=== PATIENT | male | born 1955 | race Caucasian/White ===

== ENCOUNTER → 2021-09-12 12:22 | Outpatient (BNVA) | payer OTHER, SELFPAY | PROVIDERS: PCP Nurse Practitioner Family; Visit Provider Nurse Practitioner Family | DX: F11.20 Opioid dependence, uncomplicated (principal); M96.1 Postlaminectomy syndrome, not elsewhere classified; M51.16 Intervertebral disc disorders with radiculopathy, lumbar region; M54.2 Cervicalgia; M17.12 Unilateral primary osteoarthritis, left knee; M54.9 Dorsalgia, unspecified; R13.10 Dysphagia, unspecified; G89.29 Other chronic pain; K22.0 Achalasia of cardia | CPT/HCPCS: 99202 ==

== ENCOUNTER → 2021-10-03 13:01 | Outpatient (BNVA) | payer OTHER, SELFPAY | PROVIDERS: PCP Nurse Practitioner Family; Visit Provider Nurse Practitioner Family | DX: M17.12 Unilateral primary osteoarthritis, left knee (principal); M51.16 Intervertebral disc disorders with radiculopathy, lumbar region; M54.2 Cervicalgia; M96.1 Postlaminectomy syndrome, not elsewhere classified; R13.10 Dysphagia, unspecified; K22.0 Achalasia of cardia; G47.00 Insomnia, unspecified; G89.29 Other chronic pain | CPT/HCPCS: Q3014 ==

== ENCOUNTER 2023-02-17 08:45 | Outpatient (AMB) | payer OTHER, SELFPAY ==
--- NOTE | 2023-02-17 08:57 | MHC.OFFVIS ---
Intake Intake Visit Reasons: [employer]- Knee pain wants sx Intake Note: Bernard a 68 year old male who presents today as a new patient to re-establish care with Dr. Barros. Hx of left knee . Patient reports Fell at 50 feet neck and back surgery. Numbness in his foot. Constant pain that is worse with stair use, standing and walking. 10 mg oxycodone that provides no relief. He would like to discuss surgery vs treatment. Right hip pain. pain with standing causing him to almost fall. Constan pain making it difficult to sleep. The patient has done physical therapy for 12 weeks over the last 6 months which aggravated his symptoms. He did undergo left knee arthroscopic surgery in the past which gave him temporary relief. He has also tried Tylenol and anti-inflammatory medicines which gave him minimal relief. He has had multiple cortisone injections given into his left knee. The most recent injection gave him minimal relief. He has not had a viscosupplementation injection in the past. He would like to hold off on total knee replacement surgery for as long as possible. Allergies morphine Allergy (Severe, Verified 02/17/23 09:03) ot Medication List - Last Reconciled 02/17/23 by Corby Barros MD albuterol sulfate 90 mcg/actuation 2 puffs inhalation Q4H PRN amitriptyline 10 mg PO BEDTIME 30 days amlodipine 5 mg PO DAILY atorvastatin 20 mg PO DAILY buprenorphine-naloxone 8-2 mg 20 mg sublingual DAILY clonazepam 1 mg PO TID gabapentin 600 mg PO BID hydrocortisone 2.5% [place] BID ketoconazole 2% 1 appl topical DAILY lidocaine 5% 1 patch topical DAILY PRN 30 days lisinopril 20 mg PO DAILY lisinopril 40 mg PO DAILY lisinopril 10 mg PO DAILY meloxicam 15 mg PO DAILY PRN naloxone 4 mg/actuation 1 spray intranasal DAILY oxycodone 5 - 10 mg PO Q6H PRN oxycodone ER (OxyContin) 10 mg PO BID [facility] Medical History (Updated 02/17/23 @ 09: by Corby Barros MD) Achalasia Anxiety Bone pain Chronic back pain Chronic neck pain Dysphagia Effusion, left knee Esophageal candidiasis Fatigue Hand pain Hemorrhoid Hypertension Knee pain Low serum cortisol level Lumbar disc herniation with radiculopathy Lung mass Multiple lung nodules Opioid use disorder, severe, in sustained remission Polyarthritis Tobacco use disorder Surgical History (Updated 02/17/23 @ 09:06 by HENRY Delgado) H/O esophagogastroduodenoscopy H/O neck surgery History of back surgery Hx of knee surgery Social History (Updated 02/17/23 @ 09:07 by HENRY Delgado) Alcohol intake: former Year quit: 2014 Patient Tobacco Use Status: Current everyday Tobacco user Current occupational status: disabled Physical Exam Const Other: Well-nourished well-developed very friendly male awake alert and oriented x3 in no acute distress Extrem Other: Bilateral lower extremity examination shows good capillary refill, no skin lesions noted, normal sensation light touch Right hip examination shows decreased range of motion when compared to his left hip, pain with range of motion, no tenderness over his bursa Left knee examination shows a minimal effusion, palpable crepitus with range of motion, pain with range of motion, range of motion from -3 degrees to 115 degrees, negative Vandana's test Results Reviewed Results Reviewed: X-rays of the patient's left knee taken today show moderate diffuse joint space narrowing most significant in the patellofemoral joint, no acute bony abnormalities Assessment & Plan Assessment & Plan (1) Right hip pain: Code(s): M25.551 - Pain in right hip (2) Primary osteoarthritis of left knee: Code(s): M17.12 - Unilateral primary osteoarthritis, left knee Plan Mr. 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 I had a lengthy discussion with the patient regarding the treatment options. He wishes to hold off on left total knee replacement surgery for as long as possible. I agree with this plan. He has not gotten good relief from cortisone injections in the recent past. Thus, I will see whether not his insurance company will cover a viscosupplementation injection. I will see him back once the injection is available. At this point his right hip pain is tolerable to him. We will hold off on getting an MRI for now. The patient will follow-up as instructed. Feel free to call me at any time should questions regarding his orthopedic management arise. Thank you very much for asking me to see this very friendly gentleman. I spent 22 minutes in reviewing the patient's records and imaging studies, seeing the patient and documenting in the medical record. Orders: Orders XR hip RT min 2V Today M25.551 - Pain in right hip XR pelvis 1-2V Today M25.551 - Pain in right hip Coding Level of Care Code Est Pt Level 2 (69798) Diagnoses Right hip pain M25.551 Primary osteoarthritis of left knee M17.12
== END 2023-02-17 10:50 | disposition home or self-care (01) ==
PROVIDERS: PCP Nurse Practitioner Family; Visit Provider Orthopaedic Surgery
DX: M25.551 Pain in right hip (principal); M17.12 Unilateral primary osteoarthritis, left knee
CPT/HCPCS: 99212

== ENCOUNTER 2023-02-17 09:22 | Outpatient (REF) | payer OTHER, SELFPAY ==
--- NOTE | ~2023-02-17 | XR_ITS ---
EXAMINATION: XR KNEE, LEFT CLINICAL INFORMATION: Pain COMPARISON: None available. TECHNIQUE: 3 views of the left knee. FINDINGS: There is mild narrowing of medial compartment of left knee joint. Patellofemoral compartment is intact. There is trace of joint effusion. XR/XR knee LT 3V IMPRESSION: Trace of joint effusion in the left knee joint and mild narrowing of medial compartment.
--- NOTE | ~2023-02-17 | XR_ITS ---
EXAMINATION: XR HIP, RIGHT CLINICAL INFORMATION: Pain in right hip2 COMPARISON: None available. TECHNIQUE: Two views of the right hip. FINDINGS: No fracture. Alignment is anatomic. Hip joint space is maintained. Soft tissues are unremarkable. XR/XR hip RT min 2V IMPRESSION: Normal right hip.
== END 2023-02-17 09:23 | disposition home or self-care (01) ==
LOC: HO.HOSX 09:22
PROVIDERS: Visit Provider Orthopaedic Surgery
DX: M17.12 Unilateral primary osteoarthritis, left knee (principal); M25.551 Pain in right hip
CPT/HCPCS: 73502; 73562; 99212

== ENCOUNTER 2023-03-03 08:22 | Outpatient (AMB) | payer OTHER, SELFPAY ==
--- NOTE | 2023-03-03 08:25 | A.OFFVIS_ITS ---
Intake Intake Visit Reasons: OV-Judd, Lt Knee Intake Note: Bernard is a 68 year old male who presents today with complaints of progressively worsening left knee pain. He describes his pain as sharp in nature. His pain has gotten worse over the last few years in spite of continued non operative treatments. He has had cortisone injections in the past which gave him minimal relief. He has not had a viscosupplementation injection. He has tried Tylenol and anti-inflammatory medicines which gave him minimal relief. He would like to hold off on surgery for as long as possible. He has done physical therapy for 12 weeks over the last 6 months which aggravated his pain. Allergies morphine Allergy (Severe, Verified 03/03/23 08:50) ot Medication List - Last Reconciled 03/03/23 by Corby Barros MD albuterol sulfate 90 mcg/actuation 2 puffs inhalation Q4H PRN amitriptyline 10 mg PO BEDTIME 30 days amlodipine 5 mg PO DAILY atorvastatin 20 mg PO DAILY buprenorphine-naloxone 8-2 mg 20 mg sublingual DAILY clonazepam 1 mg PO TID gabapentin 600 mg PO BID hydrocortisone 2.5% [place] BID ketoconazole 2% 1 appl topical DAILY lidocaine 5% 1 patch topical DAILY PRN 30 days lisinopril 20 mg PO DAILY lisinopril 40 mg PO DAILY lisinopril 10 mg PO DAILY meloxicam 15 mg PO DAILY PRN naloxone 4 mg/actuation 1 spray intranasal DAILY oxycodone 5 - 10 mg PO Q6H PRN oxycodone ER (OxyContin) 10 mg PO BID [facility] Medical History Achalasia Anxiety Bone pain Chronic back pain Chronic neck pain Dysphagia Effusion, left knee Esophageal candidiasis Fatigue Hand pain Hemorrhoid Hypertension Knee pain Low serum cortisol level Lumbar disc herniation with radiculopathy Lung mass Multiple lung nodules Opioid use disorder, severe, in sustained remission Polyarthritis Tobacco use disorder Surgical History H/O esophagogastroduodenoscopy H/O neck surgery History of back surgery Hx of knee surgery Social History Alcohol intake: former Year quit: 2015 Patient Tobacco Use Status: Current everyday Tobacco user Current occupational status: disabled Physical Exam Const Other: Well-nourished well-developed very friendly male awake alert and oriented x3 in no acute distress Extrem Other: Bilateral lower extremity examination shows good capillary refill, no skin lesions noted, normal sensation light touch Left knee examination shows a minimal effusion, palpable crepitus with range of motion, pain with range of motion, range of motion from -3 degrees to 115 degrees, no instability Office Procedures Joint Injection/Drain Joint Injection/Drain Primary Site: left knee Injected: 60 mg of (Durolane ) and 1% plain lidocaine Procedure: The patient tolerated the procedure well Coding - Large joint Procedure code (CPT) selection complete Results Reviewed Results Reviewed: 03/03/23 08:23 Hyaluronate Sodium, Stabilized [Durolane] 60 mg INTRAARTIC .STK-MED ONE Lidocaine HCl 2 % MPF [Xylocaine 2 % MPF] 5 ml .ROUTE .STK-MED ONE Assessment & Plan Assessment & Plan (1) Arthritis of left knee: Code(s): M17.12 - Unilateral primary osteoarthritis, left knee Plan: Mr. Franco presents with progressively worsening left knee pain due to degenerative joint disease. I had a lengthy discussion with the patient regarding the treatment options. He wishes to hold off on surgery for as long as possible. I agree with this plan. He has not gotten good relief from cortisone injections in the past. Thus, we discussed the risks and benefits of a viscosupplementation injection. The patient wished to proceed. He tolerated the injection well. He will continue with his home exercise program. He will follow up with me on an as-needed basis should his symptoms not plateau at an unacceptable level over the next few months. Feel free to call me at any time should questions regarding his orthopedic management arise. I spent 22 minutes in reviewing the patient's records and imaging studies, seeing the patient and documenting in the medical record. Orders: Orders AMB Joint Injection/Aspiration Today M17.12 - Unilateral primary osteoarthritis, left knee Coding Level of Care Code Est Pt Level 2 (36938) Diagnoses Arthritis of left knee M17.12 CPT Codes Coding - Large joint: 96831 - Large joint ([id number])
== END 2023-03-03 09:13 | disposition home or self-care (01) ==
PROVIDERS: PCP Nurse Practitioner Family; Visit Provider Orthopaedic Surgery
DX: M17.12 Unilateral primary osteoarthritis, left knee (principal)
CPT/HCPCS: 20610; 99213

== ENCOUNTER → 2023-03-03 08:22 | Outpatient (BNVA) | payer OTHER, SELFPAY | PROVIDERS: PCP Nurse Practitioner Family; Visit Provider Orthopaedic Surgery | DX: M17.12 Unilateral primary osteoarthritis, left knee (principal) | CPT/HCPCS: 20610; J7318 ==

== ENCOUNTER 2023-05-19 09:12 | Outpatient (AMB) | payer OTHER, SELFPAY ==
--- NOTE | 2023-05-19 09:33 | MHC.OFFVIS ---
Intake Vital Signs 05/19/23 09:36 Height 5 ft 7 in Weight 123 lb BMI 19.3 Intake Visit Reasons: Newprob-Right knee pain Intake Note: Bernard a 68 year old male presents today for an evaluation of right knee pain and right hip pain. Patient reports about a month ago he heard a pop in his right knee, he has been having pain and swelling ever since. States with waking up in the morning he is not able to get up and walk due to his pain. Finds no relief with Tylenol. Patient describes his hip pain as achy in nature. Most of the pain is along the lateral aspect of his right hip. He has undergone multiple low back surgeries in the past. He reports only mild discomfort in his low back at this time. Allergies morphine Allergy (Severe, Verified 05/19/23 09:34) ot Medication List - Last Reconciled 05/19/23 by Corby Barros MD albuterol sulfate 90 mcg/actuation 2 puffs inhalation Q4H PRN amitriptyline 10 mg PO BEDTIME 30 days amlodipine 5 mg PO DAILY atorvastatin 20 mg PO DAILY buprenorphine-naloxone 8-2 mg 20 mg sublingual DAILY clonazepam 1 mg PO TID gabapentin 600 mg PO BID hydrocortisone 2.5% [place] BID ketoconazole 2% 1 appl topical DAILY lidocaine 5% 1 patch topical DAILY PRN 30 days lisinopril 20 mg PO DAILY lisinopril 40 mg PO DAILY lisinopril 10 mg PO DAILY meloxicam 15 mg PO DAILY PRN naloxone 4 mg/actuation 1 spray intranasal DAILY PFSH Medical History Achalasia Anxiety Bone pain Chronic back pain Chronic neck pain Dysphagia Effusion, left knee Esophageal candidiasis Fatigue Hand pain Hemorrhoid Hypertension Knee pain Low serum cortisol level Lumbar disc herniation with radiculopathy Lung mass Multiple lung nodules Opioid use disorder, severe, in sustained remission Polyarthritis Tobacco use disorder Surgical History Hx of knee surgery History of back surgery H/O esophagogastroduodenoscopy H/O neck surgery Social History Alcohol intake: former Year quit: 2014 Patient Tobacco Use Status: Current everyday Tobacco user Current occupational status: disabled Physical Exam Vital Signs: BMI result Body Mass Index 19.3 Const Other: Well-nourished well-developed very friendly male awake alert and oriented x3 in no acute distress Extrem Other: Bilateral lower extremity examination shows good capillary refill, no skin lesions noted, normal sensation light touch Right hip examination shows full range of motion when compared to his left hip, mild tenderness over his bursa, no overlying skin lesions Right knee examination shows a minimal effusion, mild crepitus with range of motion, no focal joint line tenderness, negative Vandana's test Office Procedures Joint Injection/Drain Joint Injection/Drain Primary Site: right knee Prep: site was prepped using aseptic technique Injected: 40 mg of, Kenalog and 1% plain lidocaine Procedure: The patient tolerated the procedure well Coding 52740 - Large joint Procedure code (CPT) selection complete Results Reviewed Results Reviewed: 05/19/23 09:48 Lidocaine HCl 2 % MPF [Xylocaine 2 % MPF] 5 ml .ROUTE .STK-MED ONE Triamcinolone Acetonide [Kenalog-40] 40 mg .ROUTE .STK-MED ONE X-rays of the patient's right hip taken today show mild diffuse joint space narrowing, no acute bony abnormalities Standing full weight-bearing x-rays of the patient's right knee show mild grade 1 diffuse joint space narrowing, no acute bony abnormalities Assessment & Plan Assessment & Plan (1) Right hip pain: Code(s): M25.551 - Pain in right hip Plan: Mr. Franco presents with right hip pain due to greater trochanteric bursitis as well as right knee pain due to early degenerative joint disease as well as possible meniscus tearing. I had a lengthy discussion with the patient regarding the treatment options. The risks and benefits of a right knee cortisone injection were discussed at length with the patient. The patient wished to proceed. He tolerated the injection well. He will continue with his home exercise program. At this point his right hip pain is tolerable to him. He will follow up with me on an as-needed basis should his symptoms not plateau at an unacceptable level over the next few months. Feel free to call me at any time should questions regarding his orthopedic management arise. I spent 22 minutes in reviewing the patient's records and imaging studies, seeing the patient and documenting in the medical record. (2) Right knee pain: Code(s): M25.561 - Pain in right knee Orders: Orders AMB Joint Injection/Aspiration Today M25.561 - Pain in right knee XR knee RT 3V Today M25.561 - Pain in right knee Coding Level of Care Code Est Pt Level 2 (49587) Diagnoses Right hip pain M25.551 Right knee pain M25.561 CPT Codes Coding - 62232 Large joint: 15243 - Large joint ([id number])
[2023-05-19 09:36] VITALS: BMI 19.3
== END 2023-05-19 10:01 | disposition home or self-care (01) ==
PROVIDERS: PCP Nurse Practitioner Family; Visit Provider Orthopaedic Surgery
DX: M70.61 Trochanteric bursitis, right hip (principal); M25.561 Pain in right knee
CPT/HCPCS: 20610; 99213

== ENCOUNTER 2023-05-19 10:46 | Outpatient (REF) | payer OTHER, SELFPAY ==
--- NOTE | ~2023-05-19 | XR_ITS ---
EXAMINATION: XR KNEE, RIGHT XR PELVIS CLINICAL INFORMATION: Pain in right knee. Pain in right hip. COMPARISON: Right hip 02/17/2023, right knee MR 09/05/2021. TECHNIQUE: AP view of the pelvis and 3 views of the right knee FINDINGS: RIGHT KNEE: Soft tissue calcifications are likely vascular. No significant joint effusion. Mild medial joint space narrowing. Tiny posterior patellar osteophytes. AP PELVIS: Redemonstration of surgical hardware and clips in the partially imaged lower lumbar spine. Bones are diffusely demineralized. Mild degenerative changes in bilateral hips with joint space narrowing and hypertrophic change. Dense curvilinear calcification in the soft tissues overlying the left greater trochanter. XR/XR knee RT 3V IMPRESSION: 1. Minimal degenerative changes in the right knee. 2. Mild degenerative changes on AP views of bilateral hips. Additional imaging with CT scan or MRI should be considered for better visualization as these modalities are much more sensitive for detection of fracture or other underlying pathology.
--- NOTE | ~2023-05-19 | XR_ITS ---
EXAMINATION: XR KNEE, RIGHT XR PELVIS CLINICAL INFORMATION: Pain in right knee. Pain in right hip. COMPARISON: Right hip 02/17/2023, right knee MR 09/05/2021. TECHNIQUE: AP view of the pelvis and 3 views of the right knee FINDINGS: RIGHT KNEE: Soft tissue calcifications are likely vascular. No significant joint effusion. Mild medial joint space narrowing. Tiny posterior patellar osteophytes. AP PELVIS: Redemonstration of surgical hardware and clips in the partially imaged lower lumbar spine. Bones are diffusely demineralized. Mild degenerative changes in bilateral hips with joint space narrowing and hypertrophic change. Dense curvilinear calcification in the soft tissues overlying the left greater trochanter. XR/XR pelvis 1-2V IMPRESSION: 1. Minimal degenerative changes in the right knee. 2. Mild degenerative changes on AP views of bilateral hips. Additional imaging with CT scan or MRI should be considered for better visualization as these modalities are much more sensitive for detection of fracture or other underlying pathology.
== END 2023-05-19 10:47 | disposition home or self-care (01) ==
LOC: HO.HOSX 10:46
PROVIDERS: Visit Provider Orthopaedic Surgery
DX: M17.11 Unilateral primary osteoarthritis, right knee (principal); M70.61 Trochanteric bursitis, right hip
CPT/HCPCS: 20610; 72170; 73562; 99212; J3301

== ENCOUNTER 2023-08-19 08:46 | Outpatient (AMB) | payer OTHER, SELFPAY ==
--- NOTE | 2023-08-19 08:55 | MHC.OFFVIS ---
Intake Vital Signs 08/19/23 09:00 Height 5 ft 7 in Weight 123 lb BMI 19.3 Handedness Left Intake Visit Reasons: Left knee pain Intake Note: Bernard is a 68 year old male who presents for a follow up Left knee pain. Patient reports last injection was on 05/19/2023 in the Right knee and states that the injection gave him mild relief, he would like to have an injection in his left knee. He is having concerns of his right shoulder pain that has been going on for about 5 months. No hx of Trauma. He describes his left knee pain as sharp in nature. Most of the pain is along the medial aspect of his knee. He has tried Tylenol and anti-inflammatory medicines which gave him minimal relief. He has also done physical therapy which aggravated his pain. Allergies morphine Allergy (Severe, Verified 08/19/23 09:00) ot Medication List - Last Reconciled 08/19/23 by Corby Barros MD albuterol sulfate 90 mcg/actuation 2 puffs inhalation Q4H PRN amitriptyline 10 mg PO BEDTIME 30 days amlodipine 5 mg PO DAILY atorvastatin 20 mg PO DAILY buprenorphine-naloxone 8-2 mg 20 mg sublingual DAILY clonazepam 1 mg PO TID gabapentin 600 mg PO BID hydrocortisone 2.5% [place] BID ketoconazole 2% 1 appl topical DAILY lidocaine 5% 1 patch topical DAILY PRN 30 days lisinopril 20 mg PO DAILY lisinopril 40 mg PO DAILY lisinopril 10 mg PO DAILY meloxicam 15 mg PO DAILY PRN naloxone 4 mg/actuation 1 spray intranasal DAILY [facility] Medical History Achalasia Anxiety Bone pain Chronic back pain Chronic neck pain Dysphagia Effusion, left knee Esophageal candidiasis Fatigue Hand pain Hemorrhoid Hypertension Knee pain Low serum cortisol level Lumbar disc herniation with radiculopathy Lung mass Multiple lung nodules Opioid use disorder, severe, in sustained remission Polyarthritis Tobacco use disorder Surgical History Hx of knee surgery History of back surgery H/O esophagogastroduodenoscopy H/O neck surgery Social History Alcohol intake: former Year quit: 2014 Patient Tobacco Use Status: Current everyday Tobacco user Current occupational status: disabled Physical Exam Vital Signs: BMI result Body Mass Index 19.3 Const Other: Well-nourished well-developed very friendly male awake alert and oriented x3 in no acute distress Extrem Other: Bilateral lower extremity examination shows good capillary refill, no skin lesions noted, normal sensation light touch Left knee examination shows a minimal effusion, palpable crepitus with range of motion, pain with range of motion, no instability Office Procedures Joint Injection/Drain Joint Injection/Drain Primary Site: left knee Prep: site was prepped using aseptic technique Injected: 40 mg of, DepoMedrol and 1% plain lidocaine Procedure: The patient tolerated the procedure well Coding - Large joint Procedure code (CPT) selection complete Assessment & Plan Assessment & Plan (1) Arthritis of left knee: Code(s): M17.12 - Unilateral primary osteoarthritis, left knee (2) Left knee pain: Code(s): M25.562 - Pain in left knee Plan Mr. Franco presents with left knee pain due to degenerative joint disease. I had a lengthy discussion with the patient regarding the treatment options. Wishes to hold off on surgery for as long possible. I agree with this plan. The risks and benefits of a left knee cortisone injection were discussed at length with the patient. The patient wished to proceed with the injection. He tolerated the injection well. He will continue with his activity modifications. The patient also has right shoulder pain. I will see him back next week for clinical and radiographic evaluation of his right shoulder. Feel free to call me at any time should questions regarding his orthopedic management arise. I spent 22 minutes in reviewing the patient's records and imaging studies, seeing the patient and documenting in the medical record. Orders: Orders AMB Joint Injection/Aspiration Today M17.12 - Unilateral primary osteoarthritis, left knee Coding Level of Care Code Est Pt Level 2 (83274) Diagnoses Arthritis of left knee M17.12 Left knee pain M25.562 CPT Codes Coding - Large joint: 95339 - Large joint ([id number])
[2023-08-19 09:00] VITALS: BMI 19.3
== END 2023-08-19 09:29 | disposition home or self-care (01) ==
PROVIDERS: PCP Nurse Practitioner Family; Visit Provider Orthopaedic Surgery
DX: M17.12 Unilateral primary osteoarthritis, left knee (principal)
CPT/HCPCS: 20610; 99213

== ENCOUNTER → 2023-08-19 08:46 | Outpatient (BNVA) | payer OTHER, SELFPAY | PROVIDERS: PCP Nurse Practitioner Family; Visit Provider Orthopaedic Surgery | DX: M17.12 Unilateral primary osteoarthritis, left knee (principal) | CPT/HCPCS: 20610; 99212; J1020 ==

== ENCOUNTER 2023-08-26 07:21 | Outpatient (REF) | payer OTHER, SELFPAY | END 2023-08-26 07:22 | disposition home or self-care (01) | LOC: HO.HOSX 07:21 | PROVIDERS: Visit Provider Orthopaedic Surgery | DX: Z13.89 Encounter for screening for other disorder (principal) ==

== ENCOUNTER 2023-09-22 16:56 | Outpatient (REF) | payer OTHER, SELFPAY | END 2023-09-22 16:57 | disposition home or self-care (01) | LOC: HO.HOSX 16:56 | PROVIDERS: Visit Provider Orthopaedic Surgery | DX: Z13.89 Encounter for screening for other disorder (principal) ==

== ENCOUNTER 2024-01-20 06:48 | Outpatient (REF) | payer OTHER, SELFPAY ==
--- NOTE | ~2024-01-20 | XR_ITS ---
EXAMINATION: XR SHOULDER, RIGHT CLINICAL INFORMATION: Pain right shoulder. COMPARISON: None available. TECHNIQUE: Two views of the right shoulder. FINDINGS: Diffuse demineralization. Cervical fixation hardware partially imaged. Degenerative changes with rightward curvature of the partially imaged upper thoracic spine. Acromioclavicular alignment maintained. Narrowing of the subacromial space. Glenohumeral alignment appears preserved on these views. No abnormal soft tissue calcification visualized adjacent to the humeral head. Patchy asymmetries with changes in the right hilar region could be evaluated with dedicated views of the chest. Spine fixation hardware partially imaged. Diffuse demineralization. XR/XR shoulder RT min 2V IMPRESSION: 1. Narrowing of the subacromial space. 2. Patchy asymmetries with changes in the right hilar region could be evaluated with dedicated views of the chest.
== END 2024-01-20 06:49 | disposition home or self-care (01) ==
LOC: HO.HOSX 06:48
PROVIDERS: Visit Provider Orthopaedic Surgery
DX: M25.511 Pain in right shoulder (principal)
CPT/HCPCS: 73030; 99212

== ENCOUNTER 2024-01-20 07:34 | Outpatient (AMB) | payer OTHER, SELFPAY ==
--- NOTE | 2024-01-20 07:49 | A.OFFVIS_ITS ---
Vital Signs 01/20/24 07:55 Height 5 ft 7 in Weight 123 lb BMI 19.3 Intake Visit Reasons: New Prob - right shoulder pain Intake Note: Bernard is a 69 year old left hand dominant male who presents with complaints of progressively worsening right shoulder pain and weakness. The patient states that his symptoms have gotten worse over the last few years in spite of continued non operative treatments. The patient states that he has done a home exercise program which aggravated his pain. He has had injections in the past which gave him minimal relief. He has also tried Tylenol, anti-inflammatory medicines and oxycodone which gave him only mild relief. Allergies morphine Allergy (Severe, Verified 01/20/24 07:54) ot Medication List - Last Reconciled 01/20/24 by Corby Barros MD albuterol sulfate 90 mcg/actuation 2 puffs inhalation Q4H PRN amitriptyline 10 mg PO BEDTIME 30 days amlodipine 5 mg PO DAILY atorvastatin 20 mg PO DAILY buprenorphine-naloxone 8-2 mg 20 mg sublingual DAILY clonazepam 1 mg PO TID gabapentin 600 mg PO BID hydrocortisone 2.5% FL BID ketoconazole 2% 1 appl topical DAILY lidocaine 5% 1 patch topical DAILY PRN 30 days lisinopril 20 mg PO DAILY lisinopril 40 mg PO DAILY lisinopril 10 mg PO DAILY meloxicam 15 mg PO DAILY PRN naloxone 4 mg/actuation 1 spray intranasal DAILY PFSH Medical History Achalasia Anxiety Bone pain Chronic back pain Chronic neck pain Dysphagia Effusion, left knee Esophageal candidiasis Fatigue Hand pain Hemorrhoid Hypertension Knee pain Low serum cortisol level Lumbar disc herniation with radiculopathy Lung mass Multiple lung nodules Opioid use disorder, severe, in sustained remission Polyarthritis Tobacco use disorder Surgical History Hx of knee surgery History of back surgery H/O esophagogastroduodenoscopy H/O neck surgery Social History Alcohol intake: former Year quit: 2014 Patient Tobacco Use Status: Current everyday Tobacco user Current occupational status: disabled Physical Exam Vital Signs: BMI result Body Mass Index 19.3 Const Other: Well-nourished well-developed very friendly male awake alert and oriented x3 in no acute distress Extrem Other: Bilateral upper extremity examination shows good capillary refill, no skin lesions noted, normal sensation light touch Right shoulder examination shows decreased range of motion when compared to his left shoulder, 3/5 strength with supraspinatus testing, positive impingement signs, no instability Results Reviewed Results Reviewed: X-rays of the patient's right shoulder show severe acromioclavicular joint narrowing as well as a high-riding humeral head consistent with possible rotator cuff tear Assessment & Plan Assessment & Plan (1) Right shoulder pain: Code(s): M25.511 - Pain in right shoulder Category: Medical Plan Mr. Franco presents with progressively worsening right shoulder pain and weakness due to impingement syndrome and most likely a full-thickness rotator cuff tear. Thus, I will send the patient for an MRI of his right shoulder for further evaluation. I will see him back once the MRI is completed to discuss the findings and treatment options. Feel free to call me at any time should questions regarding his orthopedic management arise. I spent 20 minutes in reviewing the patient's records and imaging studies, steven g the patient and documenting in the medical record. Orders: Orders XR shoulder RT min 2V Today M25.511 - Pain in right shoulder MR shoulder RT wo con Today M25.511 - Pain in right shoulder Coding Level of Care Code Est Pt Level 3 (25347) Diagnoses Right shoulder pain M25.511
[2024-01-20 07:55] VITALS: BMI 19.3
== END 2024-01-20 08:17 | disposition home or self-care (01) ==
PROVIDERS: PCP Nurse Practitioner Family; Visit Provider Orthopaedic Surgery
DX: M25.511 Pain in right shoulder (principal)
CPT/HCPCS: 99213

== ENCOUNTER 2024-02-25 14:10 | Outpatient (AMB) | payer OTHER, SELFPAY ==
--- NOTE | 2024-02-25 14:20 | MHC.OFFVIS ---
Intake Visit Reasons: OV- R shoulder MRI review Intake Note: Bernard is a 69 year old left hand dominant male who presents with complaints of progressively worsening right shoulder pain and weakness. The patient states that his symptoms have gotten worse over the last few years in spite of continued non operative treatments. The patient states that he has done a home exercise program which aggravated his pain. He has had injections in the past which gave him minimal relief. He has also tried Tylenol, anti-inflammatory medicines and oxycodone which gave him only mild relief. The patient reports weakness when lifting his right hand above shoulder height. Allergies morphine Allergy (Severe, Verified 02/25/24 14:20) oth PFSH Medical History Lung mass Knee pain Hand pain Esophageal candidiasis Fatigue Effusion, left knee Dysphagia Bone pain Polyarthritis Tobacco use disorder Opioid use disorder, severe, in sustained remission Multiple lung nodules Lumbar disc herniation with radiculopathy Low serum cortisol level Hypertension Hemorrhoid Chronic neck pain Chronic back pain Anxiety Achalasia Surgical History Hx of knee surgery History of back surgery H/O esophagogastroduodenoscopy H/O neck surgery Social History Alcohol intake: former Year quit: 2014 Patient Tobacco Use Status: Current everyday Tobacco user Current occupational status: disabled Physical Exam Const Other: Well-nourished well-developed very friendly male awake alert and oriented x3 in no acute distress Extrem Other: Bilateral upper extremity examination shows good capillary refill, no skin lesions noted, normal sensation light touch Right shoulder examination shows slightly decreased range of motion when compared to his left shoulder, 4/5 strength with supraspinatus testing, positive impingement signs, tenderness over his acromioclavicular joint, no instability Results Reviewed Results Reviewed: MRI of the patient's right shoulder shows severe acromioclavicular joint narrowing, a type 2 acromion, a full-thickness tear of the supraspinatus tendon Assessment & Plan Assessment & Plan (1) Impingement of right shoulder: Code(s): M25.811 - Other specified joint disorders, right shoulder Category: Medical Plan Mr. Franco presents with progressively worsening right shoulder pain and weakness due to impingement syndrome, acromioclavicular joint arthritis and a full-thickness rotator cuff tear. I had a lengthy discussion with the patient regarding the treatment options. At this point he has failed continued non operative treatments. The risks and benefits of right shoulder surgery were discussed at length with the patient. The patient wishes to proceed with surgery. Surgery will likely involve right shoulder diagnostic arthroscopy with distal clavicle excision, acromioplasty and rotator cuff repair. The patient will be scheduled for next available date. He will follow-up as instructed. Feel free to call me at any time should questions regarding his orthopedic management arise. I spent 21 minutes in reviewing the patient's records and imaging studies, seeing the patient and documenting in the medical record. Coding Level of Care Code Est Pt Level 3 (01073) Diagnoses Impingement of right shoulder M25.811
== END 2024-02-25 14:59 | disposition home or self-care (01) ==
PROVIDERS: PCP Nurse Practitioner Family; Visit Provider Orthopaedic Surgery
DX: M75.41 Impingement syndrome of right shoulder (principal); M19.011 Primary osteoarthritis, right shoulder; M75.101 Unspecified rotator cuff tear or rupture of right shoulder, not specified as traumatic
CPT/HCPCS: 99213

== ENCOUNTER → 2024-02-25 14:10 | Outpatient (BNVA) | payer OTHER, SELFPAY | PROVIDERS: PCP Nurse Practitioner Family; Visit Provider Orthopaedic Surgery | DX: M25.811 Other specified joint disorders, right shoulder (principal) | CPT/HCPCS: 99212 ==

== ENCOUNTER → 2024-02-29 10:36 | Outpatient (BNV) | payer OTHER, SELFPAY | PROVIDERS: PCP Nurse Practitioner Adult Health; Visit Provider Internal Medicine | DX: R94.31 Abnormal electrocardiogram [ECG] [EKG] (principal) | CPT/HCPCS: 93010 ==

== ENCOUNTER 2024-03-07 06:05 | Day surgery (SDC) | payer OTHER, SELFPAY ==
--- NOTE | 2024-02-29 | ECG_ITS ---
Test Reason : COPD, PREOP Blood Pressure : / mmHG Vent. Rate : 059 BPM Atrial Rate : 059 BPM P-R Int : 142 ms QRS Dur : 088 ms QT Int : 410 ms P-R-T Axes : 072 073 060 degrees QTc Int : 405 ms Sinus bradycardia Possible Anterior infarct , age undetermined Abnormal ECG No previous ECGs available Referred By: Noemy Nicole Electronically Signed By:BUCK ROCKWELL
[2024-02-29 09:45] VITALS: BP 147/79; PULSE 67; RESP 16; O2SAT 98; BMI 19.3
[2024-02-29 11:10] LABS: Hematocrit 40.8 % (42.0-52.0); Hemoglobin 14.2 g/dl (14.0-18.0); Mean Corpuscular HGB Conc 34.8 g/dl (31.0-36.0); Mean Corpuscular Hemoglobin 33.4 pg (27.0-33.0); Platelet Count 241 X10*3/uL (160-400); Red Blood Count 4.25 X10*6/uL (4.60-5.80); Red Cell Distribution Width 12.3 % (11.0-16.0); White Blood Count 5.9 X10*3/uL (4.8-10.8)
[2024-02-29 11:51] LABS: Anion Gap 11 (12-20); Blood Urea Nitrogen 16 mg/dL (9-16); Calcium 9.5 mg/dL (8.4-10.2); Carbon Dioxide 28 mmol/L (22-29); Chloride 109 mmol/L (96-108); Creatinine Clr Calc Pharmacy 72.5; Estimated Glomerular Filt Rate > 60; Glucose Random 68 mg/dL (60-115); Potassium 4.2 mmol/L (3.3-5.1); Sodium 144 mmol/L (135-145)
[2024-03-07] VITALS (7 sets, daily range): BP systolic 105–146; BP diastolic 54–79; PULSE 46–79; RESP 16–18; TEMP 36.4–36.6; O2SAT 96–99; BMI 18.8
[2024-03-07] MEDS: Lactated Ringers 1,000 ML 100 ML IVCONT (06:32)
[2024-03-07] MEDS: Albuterol Sulfate (0.083%) 2.5 MG/3 ML VIAL.NEB INHALE (06:51)
--- NOTE | 2024-03-07 07:15 | P.CONAN_ITS ---
Documented by User: Noemy Nicole NP 03/02/24 12:49 HPI - Anesthesia Eval Consult details Narrative: 69yo Right Shoulder Arthroscopy,distal clavicle excision,acromioplasty,with rotator cuff repair, 03/07/24 No recent illness No CP/SOB with walking daily 30-60 Recent quit smoking. Denies productive cough Albuterol ~ 2 x weekly Chronic opiates (overall pain after fall 50ft 1984) Oxycontin 20 mg BID, Oxy IR 10mg QID Lung CA s/p?robotic assisted right lower lobe wedge resection and mediastinal lymphadenectomy on 06/03/2023 [facility] Active Problems Active Problems: All Active Problems Impingement of right shoulder (Acute) Right shoulder pain (Acute) Arthritis of left knee (Acute) Right hip pain (Acute) Right knee pain (Acute) Insomnia (Acute) Primary osteoarthritis of left knee (Acute) Failed back syndrome (Acute) Lumbar disc herniation with radiculopathy (Acute) Dysphagia (Acute) Chronic neck pain (Acute) Chronic back pain (Acute) Achalasia (Acute) Past Medical History Medical History (Updated 02/29/24 @ 10:02 by Raegan Katz RN) Degenerative arthritis Hx of cancer of lung Hx: bad fall (~1984) COPD (chronic obstructive pulmonary disease) Chronic, continuous use of opioids Lung mass Knee pain Hand pain Esophageal candidiasis Fatigue Effusion, left knee Dysphagia Bone pain Polyarthritis Tobacco use disorder Opioid use disorder, severe, in sustained remission Multiple lung nodules Lumbar disc herniation with radiculopathy Low serum cortisol level Hypertension Hemorrhoid Chronic neck pain Chronic back pain Anxiety Achalasia Family History Family history of problems with anesthesia: No Surgical History Surgical History (Updated 02/29/24 @ 10:22 by Raegan Katz RN) History of lung surgery (06/03/23) Hx of knee surgery History of back surgery H/O esophagogastroduodenoscopy H/O neck surgery History of Problems with Anesthesia: No Social History Social History Are you a primary rn managed care to a significant other at home: Yes ( 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 If so, by whom?: No Are you DNR?: No Advance Directives: No Advance Directives Information Provided: Yes Advance Directives on File: No Recently lost weight without trying: Yes How much weight loss: 24-33 pounds Eating poorly because of decreased appetite: No Nutrition screen score: 5 Poor oral hygiene: No (no teeth) Current occupational status: disabled Meds Allergies Allergy/AdvReac Type Severity Reaction Status Date / Time morphine Allergy Severe Hallucinati Verified 03/07/24 06:14 ons Home Medications ?Medication ?Instructions ?Recorded ?Confirmed ?Last Taken ?Type albuterol sulfate 90 mcg/actuation 2 puff inhalation Q4H PRN wheezing 09/12/21 02/26/24 Unknown History aerosol inhaler clonazepam 1 mg tablet 1 mg PO TID PRN Anxiety 09/12/21 02/26/24 Unknown History naloxone 4 mg/actuation nasal spray 1 spray intranasal DAILY 09/12/21 02/26/24 Unknown History amlodipine 5 mg tablet 5 mg PO DAILY 02/17/23 02/26/24 Unknown History lisinopril 10 mg tablet 10 mg PO DAILY 02/17/23 02/26/24 Unknown History cholecalciferol (vitamin D3) 1,250 50,000 unit PO QWEEK 02/26/24 02/26/24 Unknown History mcg (50,000 unit) capsule oxycodone 10 mg tablet 10 mg PO Q6H PRN pain 02/26/24 02/26/24 Unknown History oxycodone 20 mg tablet,crush 20 mg PO BID 02/26/24 02/26/24 Unknown History resistant,extended release 12 hr (OxyContin) Exam Height,Weight and Vital Signs: Height 5 ft 7 in Weight 55.792 kg Last Vital Signs Pulse 67 02/29/24 09:45 Resp 16 02/29/24 09:45 BP 147/79 H 02/29/24 09:45 Pulse Ox 98 02/29/24 09:45 O2 Del Method Room Air 02/29/24 09:45 Pertinent Lab Results Pertinent Lab Results: Lab Results 08/12/24 Range/Units 10:33 WBC 5.9 (4.8-10.8) X10*3/uL RBC 4.25 L (4.60-5.80) X10*6/uL Hgb 14.2 (14.0-18.0) g/dl Hct 40.8 L (42.0-52.0) % MCV 96.0 (80.0-98.0) fL MCH 33.4 H (27.0-33.0) pg MCHC 34.8 (31.0-36.0) g/dl RDW 12.3 (11.0-16.0) % Plt Count 241 (160-400) X10*3/uL MPV 10.0 (9.4-12.4) fL Absolute Nucleated RBC 0.000 (0.0-0.012) X10*3/uL Nucleated RBC % (auto) 0.0 (0.0-0.2) /100WBC Sodium 144 (135-145) mmol/L Potassium 4.2 (3.3-5.1) mmol/L Chloride 109 H (96-108) mmol/L Carbon Dioxide 28 (22-29) mmol/L Anion Gap 11 L (12-20) BUN 16 (9-16) mg/dL Creatinine 0.78 (0.5-1.4) mg/dL Estim Creat Clear Calc 72.5 Estimated GFR > 60 Random Glucose 68 (60-115) mg/dL Calcium 9.5 (8.4-10.2) mg/dL Narrative Narrative: EKG 02/2024 Vent. Rate : 059 BPM Atrial Rate : 059 BPM P-R Int : 142 ms QRS Dur : 088 ms QT Int : 410 ms P-R-T Axes : 072 073 060 degrees QTc Int : 405 ms Sinus bradycardia Possible Anterior infarct , age undetermined Abnormal ECG No previous ECGs available (No change from previous at outside facility 05/2023) Airway Mallampati Class: II TM Dist: >3cm Neck ROM: Full Loose/Missing/Broken Teeth: Yes (Edentulous) Heart: RRR Lungs: CTAB Assessment and Plan Assessment Anesthesia Assessment: Anesthesia Plan Discussed, Smoking Cess. Discussed and PAT Visit Final Anesthetic Review Family History of Problems with Anesthesia: No History of Problems with Anesthesia: No Documented by User: Magy Cevallos DO 03/07/24 09:13 [facility] Past Medical History Medical History (Updated 02/29/24 @ 10:02 by Raegan Katz RN) Degenerative arthritis Hx of cancer of lung Hx: bad fall (~1984) COPD (chronic obstructive pulmonary disease) Chronic, continuous use of opioids Lung mass Knee pain Hand pain Esophageal candidiasis Fatigue Effusion, left knee Dysphagia Bone pain Polyarthritis Tobacco use disorder Opioid use disorder, severe, in sustained remission Multiple lung nodules Lumbar disc herniation with radiculopathy Low serum cortisol level Hypertension Hemorrhoid Chronic neck pain Chronic back pain Anxiety Achalasia Family History Family history of problems with anesthesia: No Surgical History Surgical History (Updated 02/29/24 @ 10:22 by Raegan Katz RN) History of lung surgery (06/03/23) Hx of knee surgery History of back surgery H/O esophagogastroduodenoscopy H/O neck surgery History of Problems with Anesthesia: No Social History Social History Are you a primary rn managed care to a significant other at home: Yes ( 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 If so, by whom?: No Are you DNR?: No Advance Directives: No Advance Directives Information Provided: Yes Advance Directives on File: No Recently lost weight without trying: Yes How much weight loss: 24-33 pounds Eating poorly because of decreased appetite: No Nutrition screen score: 5 Poor oral hygiene: No (no teeth) Current occupational status: disabled Meds Allergies Allergy/AdvReac Type Severity Reaction Status Date / Time morphine Allergy Severe Hallucinati Verified 03/07/24 06:14 ons Home Medications ?Medication ?Instructions ?Recorded ?Confirmed ?Last Taken ?Type albuterol sulfate 90 mcg/actuation 2 puff inhalation Q4H PRN wheezing 09/12/21 02/26/24 Unknown History aerosol inhaler clonazepam 1 mg tablet 1 mg PO TID PRN Anxiety 09/12/21 02/26/24 Unknown History naloxone 4 mg/actuation nasal spray 1 spray intranasal DAILY 09/12/21 02/26/24 Unknown History amlodipine 5 mg tablet 5 mg PO DAILY 02/17/23 02/26/24 Unknown History lisinopril 10 mg tablet 10 mg PO DAILY 02/17/23 02/26/24 Unknown History cholecalciferol (vitamin D3) 1,250 50,000 unit PO QWEEK 02/26/24 02/26/24 Unkn own History mcg (50,000 unit) capsule oxycodone 10 mg tablet 10 mg PO Q6H PRN pain 02/26/24 02/26/24 Unknown History oxycodone 20 mg tablet,crush 20 mg PO BID 02/26/24 02/26/24 Unknown History resistant,extended release 12 hr (OxyContin) Exam Exam Date and Time: March 07, 202415 Height,Weight and Vital Signs: Height 5 ft 7 in Weight 55.792 kg Last Vital Signs Pulse 67 02/29/24 09:45 Resp 16 02/29/24 09:45 BP 147/79 H 02/29/24 09:45 Pulse Ox 98 02/29/24 09:45 O2 Del Method Room Air 02/29/24 09:45 Height 5 ft 7 in Weight 54.431 kg Vital Signs Pulse Rate 67 02/29/24 09:45 Respiratory Rate 16 02/29/24 09:45 Blood Pressure 147/79 H 02/29/24 09:45 Pulse Oximetry 98 02/29/24 09:45 Oxygen Delivery Method Room Air 02/29/24 09:45 Temperature 97.5 F 03/07/24 06:33 Pulse Rate 55 03/07/24 06:51 Respiratory Rate 18 03/07/24 06:51 Blood Pressure 137/75 03/07/24 06:33 Pulse Oximetry 98 03/07/24 06:33 Oxygen Delivery Method Room Air 03/07/24 06:33 Airway Mallampati Class: I TM Dist: >3cm Neck ROM: Full Loose/Missing/Broken Teeth: Yes (Edentulous) Heart: S1S2 Assessment and Plan Assessment Anesthesia Assessment: Anesthesia Plan Discussed and Chart Reviewed Final Anesthetic Review Family History of Problems with Anesthesia: No History of Problems with Anesthesia: No NPO: Yes ASA Class: III Final Preanesthetic Review: No Changes in Pt Med Stat, Meds/Allgs Chart Reviewed, Consent Obtained/Reviewed and Anes Risks/Benef Reviewed Patient Risk: Low Procedure Risk: Intermediate Anesthetic Plan Anesthetic Plan: GA, Regional Block (right brachial plexis block) and Agree w/ Assess. and Plan Disposition: Standard PACU
--- NOTE | 2024-03-07 09:43 | P.BOP_ITS ---
Brief Operative Note Date of Service: 03/07/24 Pre-op diagnosis: Right shoulder impingement syndrome, right shoulder acromioclavicular joint arthritis, right shoulder rotator cuff tear Post-op diagnosis: same Procedure: Right shoulder diagnostic arthroscopy with right shoulder arthroscopic distal clavicle excision, right shoulder arthroscopic acromioplasty, right shoulder mini-open rotator cuff repair Implants: One suture anchor ([employer] Twinfix anchor with #2 Ultrabraid suture) Surgeon: Corby Barros MD Anesthesia: GETA and regional Was an Coding Specialist used for this Procedure?: No Estimated blood loss (mL): 10 Pathology: none sent Condition: stable Disposition: PACU
--- NOTE | 2024-03-07 09:45 | P.OP_ITS ---
Operative Note Operative Note Date of Service: 03/07/24 Narrative: After the patient was identified as Bernard Franco and his right shoulder was initialed by myself the patient was brought to the holding area where a right shoulder interscalene regional block was performed by the anesthesiologist in routine fashion. The patient was then brought to the operating room where general anesthesia was induced by the anesthesiologist in routine fashion. The patient was given 2 g of IV Ancef preoperatively for infection prophylaxis. Examination under anesthesia of the patient's right shoulder showed full passive range of motion of the patient's right shoulder when compared to the left. The patient was gently positioned in the beach chair position with all bony prominences well padded. The patient's right shoulder region and upper extremity were prepped and draped in sterile fashion. A formal time-out was completed. A #11 scalpel blade was used to make a posterior portal 2 cm inferior and 1 cm medial to the posterolateral corner of the acromion. Blunt trocar technique was used to enter the glenohumeral joint in routine fashion. An anterior portal was made just lateral to the coracoid process after proper positioning was confirmed using a spinal needle. Diagnostic arthroscopy showed minimal degenerative changes of the glenoid and humeral head articular surfaces. There was a full-thickness tear of the supraspinatus tendon. There was no evidence of injury to the biceps tendon or its insertion onto the glenoid. There was no inflammation of the anterior joint capsule. The arthroscope was then placed from the posterior portal into the subacromial space. A lateral portal was made 2 fingerbreadths lateral to the anterior lateral corner of the acromion. The ArthroCare Wand was used to ablate soft tissues along the undersurface of the acromion as well as to excise the coracoacromial ligament. There was a sharp spur along the undersurface of the acromion which was removed using the hooded bur. The arthroscope was then placed into the lateral portal and the acromioplasty was completed with the bur in the posterior portal using the posterior aspect of the acromion as a cutting block. The ArthroCare Wand was then brought in through the anterior portal and was used to ablate soft tissues along the acromioclavicular joint and distal clavicle. The posterior and superior ligamentous structures were left intact. A distal clavicle excision of 6 mm was performed using the hooded bur. Any remaining bursal tissue was removed using the arthroscopic shaver. The subacromial space was irrigated and then drained. All arthroscopic instruments were removed. Sterile gloves were changed and the shoulder was once again prepped with Betadine. A #15 scalpel blade was used to extend the lateral portal to the lateral edge of the acromion. The subacromial tissues were dissected using electrocautery down to the superficial deltoid fascia. The trocar split in the anterior raphe of the deltoid was then extended to the lateral edge of the acromion using e lectrocautery and curved Matias scissors. Any remaining bursal tissue was removed using curved Matias scissors. Subacromial and subdeltoid adhesions were bluntly dissected. The undersurface of the acromion was palpated and it was smooth. A #2 Ethibond tag suture was placed into the supraspinatus tendon. The tendon was easily mobilized to its insertion point on the glenoid. The wound was irrigated with copious amounts of normal saline solution. One suture anchor was placed into the greater tuberosity in routine fashion. The rotator cuff repair was then performed using horizontal mattress sutures under minimal tension with the patient's elbow at their side. Following the repair the shoulder was taken through a full range of motion. The repair was stable. The wound was irrigated with copious amounts of normal saline solution. The superficial and deep deltoid fascia were closed with #1 Vicryl [id number] interrupted suture. The wound was once again irrigated. The subcutaneous tissues were closed with 2-0 Vicryl interrupted suture. The skin was closed with 3-0 Prolene subcuticular suture and Steri-Strips. The anterior and posterior portals were closed with 3-0 nylon interrupted suture. Dry sterile dressing was placed over all incisions. The patient's right upper extremity was placed into a sling. The patient was awoken and extubated in the operating room. The patient was transferred to the recovery room in stable condition.
[2024-03-07] MEDS: cefTRIAXone sodium 1 GM in 0.9 % Sodium Chloride 50 ML IV (09:47)
[2024-03-07] MEDS: oxyCODONE HCl Immed Release 5 MG TABLET PO (10:27)
--- OUTSIDE RECORDS SUMMARY | 2024-03-09 07:26 | XMS_ITS | Continuity of Care Document ---
Author Organization [facility] ter Address [address] [place] [address]- Care Team Providers Care Aerobics Instructor Name Role Phone Chaim Templeton MD Primary Care Physician [phone] Encounter [facility] Date(s): 07/04/19 - 07/04/[address] [address]- [facility] Attending Physician: Not on Staff, Attending MD Allergies, Adverse Reactions, Alerts Substance Reaction Severity Status morphine 1 combative CONFUSED OUT OF IT Active 1hallucintations, confusion Immunizations Given and Recorded Vaccine Date Status Refusal Reason influ virus vac, H1N1, inactive(oldterm) 08/14/09 Given pneumococcal 23-valent vaccine 08/14/09 Given Medications Azithromycin 5 Day Dose Pack 250 mg oral tablet See Instructions, 2 tablets daily on 1st day then 1 tablet daily for 4 days, # 6 tablet, 0 Refills,Soft Stop, 04/19/19 15:27:35 EDT, Tablet Start Date: 04/19/19 Status: Ordered clonazepam 2 mg oral tablet 2 mg, 1, tablet, By Mouth, 3 times a day, 1 mg in AM and afternoon; 2 mg at bedtime, 0 Refills Start Date: 09/09/07 Status: Ordered diclofenac 3% topical gel 1 application, Topically, 2 times a day, apply over right elbow, # 100 Gm, 0 Refills, Maintenance, 05/18/19 16:15:57 EDT, Gel, 1 application Topically 2 times a day,Instr:apply over right elbow Start Date: 05/18/19 Status: Ordered lisinopril 2.5 mg oral tablet 2.5 mg, 1, tablet, By Mouth, Daily, # 90 tablet, Refills 0, Tot. Refills 0, Maintenance, 04/21/19 12:52:19 EDT, Route to Pharmacy Electronically, [id number], [facility]/pharmacy #[id number] Start Date: 04/21/19 Status: Ordered meloxicam 7.5 mg oral tablet 1 tablet = 7.5 mg, By Mouth, Daily, # 30 tablet, 0 Refills, Maintenance, 06/07/19 20:28:13 EST, Tablet Start Date: 06/07/19 Status: Ordered predniSONE 5 mg oral tablet See Instructions, 4 tablets daily x 3 days then 3 tablets daily x 3 days then 2 tablets daily x 3 days then 1 tablet daily x 3 days then discontinue, # 30 tablet, 0 Refills, Maintenance, 04/19/19 15:28:10 EDT, Tablet Start Date: 04/19/19 Status: Ordered ProAir HFA 90 mcg/inh inhalation aerosol with adapter See Instructions, TAKE 2 PUFFS BY MOUTH EVERY 4 HOURS NEEDED FOR WHEEZE, # 18 Gm, Refills 2, Tot. Refills 2, Soft Stop, 04/19/19 15:30:17 EDT, Instructions Replace Required Details, Route to Pharmacy Electronically, [id number]... Start Date: 04/19/19 Status: Ordered Suboxone 8 mg-2 mg sublingual film Sublingual, Daily, 0 Refills, Maintenance, 04/07/19 15:18:17 EDT Start Date: 04/07/19 Status: Ordered traZODone 100 mg oral tablet 100 mg, 1, tablet, By Mouth, Daily at bedtime, PRN, Refills 0, Maintenance, Sleep, 12/19/18 10:25:21 EDT Start Date: 12/19/18 Status: Ordered Problem List Condition Effective Dates Status Health Status Inform ant Left ankle pain(Confirmed) Active Anxiety(Confirmed) Active Bronchitis(Confirmed) Active Esophageal candidiasis(Confirmed) Active Chronic back pain(Confirmed) Active Chronic neck pain(Confirmed) Active Dysphagia(Confirmed) Active Hand pain(Confirmed) Active Hypertension(Confirmed) Active Effusion of left knee(Confirmed) Active Knee pain(Confirmed) Active Lung mass(Confirmed) Active Medial epicondylitis, right elbow(Confirmed) Active Preop examination(Confirmed) Active Tobacco use disorder(Confirmed) Active Social History Social History Type Response Smoking Status Current every day karina moore; Type: Cigarettes; Tobacco use times per day: 12 cigerettes a day; Number of years: 35; entered on: 04/16/15 Sex
--- OUTSIDE RECORDS SUMMARY | 2024-03-09 07:26 | XMS_ITS | Continuity of Care Document ---
Author Organization [facility] Adult Address [address] [place] [address]- Care Team Providers Care Corporate Director Of Pharmacy Name Role Phone Tonja TOURE, Jeannette Olivera Primary Care Physicia n [facility] Date(s): 06/18/21 - 07/18/21 [facility] Adult [address] [place] [address]- Allergies, Adverse Reactions, Alerts Substance Reaction Severity Status morphine 1 combative CONFUSED OUT OF IT Active 1hallucintations, confusion Immunizations Given and Recorded Vaccine Date Status Refusal Reason SARS-CoV-2 (COVID-19) mRNA-1273 vaccine 06/17/21 R ecorded influenza virus vaccine, inactivated 03/03/21 Pedro rded influenza virus vaccine, inactivated 02/18/20 Pedro rded influenza virus vaccine, inactivated 02/26/18 Pedro rded influenza virus vaccine, inactivated 04/05/17 Pedro rded influenza virus vaccine, inactivated 03/28/14 Pedro rded influenza virus vaccine, inactivated 04/03/11 Pedro rded influenza virus vaccine, inactivated 04/22/10 Pedro rded influenza virus vaccine, inactivated 03/12/10 Pedro rded influenza virus vaccine, inactivated 07/04/08 Pedro rded SARS-CoV-2 (COVID-19) Ad26 vaccine 10/21/20 Record ed pneumococcal 13-valent vaccine 05/03/19 Recorded Zoster Vaccine Live 01/19/17 Recorded influ virus vac, H1N1, inactive(oldterm) 08/14/09 Given pneumococcal 23-valent vaccine 08/14/09 Given tetanus/diphtheria/pertussis, acel(Tdap) 07/04/08 Recorded Medications Anusol-HC 2.5% cream with applicator 1 application, Rectally, 2 times a day, # 30 Gm, 1 Refills, Maintenance, 06/27/21 14:24:00 EST, Cream, [facility]/pharmacy #1234, Partial fill upon patient request if the prescription is for a schedule II opioid drug., 1 application Rectally 2 times a day, 1... Start Date: 06/27/21 Status: Ordered Anusol-HC 2.5% cream with applicator 1 application, Rectally, 2 times a day, # 30 Gm, 1 Refills, Maintenance, 06/27/21 14:24:00 EST, Cream, [facility]/pharmacy #1234, Partial fill upon patient request if the prescription is for a schedule II opioid drug., 1 application Rectally 2 times a day, 1... Start Date: 06/27/21 Status: Ordered atorvastatin 20 mg oral tablet 1 tablet = 20 mg, By Mouth, Daily, # 30 tablet, 5 Refills, Maintenance, 06/19/21 8:09:00 EST, Tablet, [facility]/pharmacy #1234, Partial fill upon patient request if the prescription is for a schedule II opioid drug., 170.18, cm, 06/05/21 9:39:00 EST, Height... Start Date: 06/19/21 Status: Ordered Back Brace See Instructions, # 1 each, Refills 0, Tot. Refills 0, Maintenance, Use for low back support, 07/06/20 14:42:00 EST, Supply Start Date: 07/06/20 Status: Ordered buprenorphine-naloxone 12 mg-3 mg sublingual film 1 film, Sublingual, Daily, dissolve under the tongue, 0 Refills, Maintenance, 12/06/20 6:51:00 EDT,Film, Partial fill upon patient request if the prescription is for a schedule II opioid drug. Start Date: 12/06/20 Status: Ordered Clonazepam = 1 mg, By Mouth, 3 times a day, 0 Refills, Maintenance, 05/20/21 11:33:00 EDT, Partial fill upon patient request if the prescription is for a schedule II opioid drug. Start Date: 05/20/21 Status: Ordered Ensure Ensure, See Instructions, # 90 each, Refills 5, Tot. Refills 5, Maintenance, 3 cans daily to maintain weight. Equal numbers chocolate and strawberry. Dx achalasia, 05/03/21 14:45:00 EDT, Supply Start Date: 05/03/21 Status: Ordered gabapentin 600 mg oral tablet 1 tablet = 600 mg, By Mouth, 2 times a day, # 90 tablet, 0 Refills, Maintenance, 03/13/21 9:20:00 EDT, Tablet, Partial fill upon patient request if the prescription is for a schedule II opioid drug. Start Date: 03/13/21 Status: Ordered Home Blood Pressure Monitor See Instructions, # 1 each, Maintenance, Use to check blood pressure at home., 03/06/21 11:40:00 EDT, Supply Start Date: 03/06/21 Status: Ordered lisinopril 40 mg oral tablet 1 tablet = 40 mg, By Mouth, Daily, # 30 tablet, 5 Refills, Maintenance, 07/03/21 10:04:00 EST, Tablet, [facility]/pharmacy #1234, Partial fill upon patient request if the prescription is for a schedule II opioid drug., 170, cm, 06/27/21 14:20:00 EST, Height,... Start Date: 07/03/21 Status: Ordered Nicotrol Inhaler 10 mg inhalation device See Instructions, use 6 cartridges per day, # 84 capsule, 0 Refills, Maintenance, 04/15/21 10:30:00EDT, [facility], Partial fill upon patient request if the prescription is for a schedule IIopioid drug., use 6 cartridges per day, 170, cm, 09... Start Date: 04/15/21 Status: Ordered ProAir HFA 90 mcg/inh inhalation aerosol 2 puffs, Inhalation, Every 4 hours, PRN NEEDED FOR WHEEZE, # 1 each, 5 Refills, Maintenance, 07/02/21 8:53:00 EST, [facility], 2 puffs Inhalation Every 4 hours,PRN: NEEDED FOR WHEEZE, 170, cm, 06/27/21 14:20:00 EST, Height, 59, kg, 05/09/... Start Date: 07/02/21 Status: Ordered Problem List Condition Effective Dates Status Health Status Inform ant Achalasia(Confirmed) Active Anxiety(Confirmed) Active Bronchitis(Confirmed) Active Chronic back pain(Confirmed) Active Chronic neck pain(Confirmed) Active Low serum cortisol level(Confirmed) Active Hypertension(Confirmed) Active Lumbar disc herniation with radiculopathy(Confirmed) Active Medial epicondylitis, right elbow(Confirmed) Active Polyarthralgia(Confirmed) Active Multiple lung nodules(Confirmed) Active Opioid use disorder, severe, in sustained remission(Confirmed) Active Tobacco use disorder(Confirmed) Active Social History Social History Type Response Tobacco Other: Smokes about 12 cigarettes daily. Prior to this, smoking about 1 PPD for 35 years.. Sex
--- OUTSIDE RECORDS SUMMARY | 2024-03-09 07:26 | XMS_ITS | Continuity of Care Document ---
Author Organization [facility] Adult Address [address] [place] [address]- Care Team Providers Care Cigar Packing Examiner Name Role Phone Fanny TOURE, Rhonda Primary Care Physician [facility] Date(s): 09/10/23 - 10/10/23 [facility] Adult [address] [place] [address]- Allergies, Adverse Reactions, Alerts Substance Reaction Severity Status morphine 1 combative CONFUSED OUT OF IT Active 1hallucintations, confusion Immunizations Given and Recorded Vaccine Date Status Refusal Reason influenza virus vaccine, inactivated 04/02/23 Pedro rded influenza virus vaccine, inactivated 03/19/22 Pedro rded influenza virus vaccine, inactivated 03/03/21 Pedro rded influenza virus vaccine, inactivated 02/18/20 Pedro rded influenza virus vaccine, inactivated 02/26/18 Pedro rded influenza virus vaccine, inactivated 04/05/17 Pedro rded influenza virus vaccine, inactivated 03/28/14 Pedro rded influenza virus vaccine, inactivated 04/03/11 Pedro rded influenza virus vaccine, inactivated 04/22/10 Pedro rded influenza virus vaccine, inactivated 03/12/10 Pedro rded influenza virus vaccine, inactivated 07/04/08 Pedro rded pneumococcal 20-valent conjugate vaccine 01/09/22 Recorded SARS-CoV-2 (COVID-19) mRNA-1273 vaccine 12/18/21 R ecorded SARS-CoV-2 (COVID-19) mRNA-1273 vaccine 06/17/21 R ecorded SARS-CoV-2 (COVID-19) Ad26 vaccine 10/21/20 Record ed pneumococcal 13-valent vaccine 05/03/19 Recorded Zoster Vaccine Live 01/19/17 Recorded influ virus vac, H1N1, inactive(oldterm) 08/14/09 Given pneumococcal 23-valent vaccine 08/14/09 Given tetanus/diphtheria/pertussis, acel(Tdap) 07/04/08 Recorded Medications Albuterol (Eqv-ProAir HFA) 90 mcg/inh inhalation aerosol 1 puffs, Inhalation, 4 times a day, PRN NEEDED FOR COUGH, # 8.5 each, 5 Refills, Maintenance, 09/20/23 21:34:00 EST, [facility], 25, 1 puffs Inhalation 4 times a day,PRN: NEEDED FOR COUGH, 170, cm, 09/17/23 8:42:00 EST, Height, 51, kg, 11... Start Date: 09/20/23 Status: Ordered amLODIPine 5 mg oral tablet 1 tablet, By Mouth, Daily, # 90 tablet, 1 Refills, Maintenance, 06/09/23 9:12:00 EST, [id number], 170, cm, 06/03/23 14:00:00 EST, Height, 51, kg, 06/03/23 14:00:00 EST, Dry Weight Start Date: 06/09/23 Status: Ordered atorvastatin 20 mg oral tablet 1 tablet, By Mouth, Daily, # 90 tablet, 1 Refills, Maintenance, 07/29/23 9:02:00 EST, [id number], 170, cm, 06/23/23 10:13:00 EST, Height, 51, kg, 06/03/23 14:00:00 EST, Dry Weight Start Date: 07/29/23 Status: Ordered celecoxib 200 mg oral capsule 1 capsule = 200 mg, By Mouth, 2 times a day, # 14 capsule, 0 Refills, Maintenance, 06/04/23 13:40:00 EST, Capsule, [facility], Partial fill upon patient request if the prescription is for a schedule II opioid drug., 170, cm, 06/03/23 14:... Start Date: 06/04/23 Stop Date: 06/11/23 Status: Ordered cholecalciferol 50,000 intl units oral capsule 1 capsule = 50,000 International_Units, By Mouth, Every 7 days, # 13 capsule, 3 Refills, Maintenance, 02/08/23 9:24:00 EDT, Capsule, [facility], Partial fill upon patient request, 170, cm, 02/06/23 9:02:00 EDT, Height, 50, kg, 11/15/21 11:23:0... Start Date: 02/08/23 Stop Date: 02/03/24 Status: Ordered Clonazepam = 1 mg, By Mouth, 3 times a day, PRN Anxiety, 0 Refills, Maintenance, 05/20/21 11:33:00 EDT, Partial fill upon patient request if the prescription is for a schedule II opioid drug. Start Date: 05/20/21 Status: Ordered Ensure Ensure, See Instructions, # 90 each, Refills 5, Tot. Refills 5, Maintenance, 3 cans daily to maintain weight. Equal numbers chocolate and strawberry. Dx achalasia, 05/12/23 16:16:00 EDT, Supply Start Date: 05/12/23 Status: Ordered gabapentin 300 mg oral capsule 300 mg, 1, capsule, By Mouth, 3 times a day, # 63 capsule, Refills 0, Tot. Refills 0, Maintenance, 06/04/23 13:40:00 EST, Route to Pharmacy Electronically, [facility], Partial fill uponpatient request if the prescription is for a schedu... Start Date: 06/04/23 Stop Date: 06/25/23 Status: Ordered Home Blood Pressure Monitor See Instructions, # 1 each, Maintenance, Use to check blood pressure at home., 03/06/21 11:40:00 EDT, Supply Start Date: 03/06/21 Status: Ordered ipratropium nasal 21 mcg/inh spray See Instructions, INSTILL 2 SPRAYS INTO EACH NOSTRIL 3 TIMES A DAY NEEDED FOR CONGESTION, # 60 Unknown, 5 Refills, Maintenance, 12/11/22 19:25:00 EDT, [id number], 90, INSTILL 2 SPRAYS INTO EACH NOSTRIL 3 TIMES A DAY NEEDED FOR CONGESTION, 1... Start Date: 12/11/22 Status: Ordered lisinopril 10 mg oral tablet 1, tablet, By Mouth, Daily, # 90 tablet, Refills 1, Maintenance, 09/07/23 9:20:00 EST, Route to Pharmacy Electronically, [id number], 170, cm, 07/29/23 14:04:00 EST, Height, 51, kg, 06/03/23 14:00:00 EST, Dry Weight Start Date: 09/07/23 Status: Ordered metoprolol 25 mg oral tablet 12.5 mg, 0.5, tablet, By Mouth, Every 12 hours, # 30 tablet, Refills 0, Tot. Refills 0, Maintenance, 06/04/23 13:43:00 EST, Route to Pharmacy Electronically, [facility], Partial fill upon patient request if the prescription is for a sche... Start Date: 06/04/23 Stop Date: 07/04/23 Status: Ordered nicotine 14 mg/24 hr transdermal film, extended release 1 patch, Topically, Daily, # 28 patch, 0 Refills, Maintenance, 07/27/23 14:23:00 EST, [id number], 28, APPLY 1 PATCH TOPICALLY DAILY, 170, cm, 06/23/23 10:13:00 EST, Height, 51, kg, 06/03/23 14:00:00 EST, Dry Weight Start Date: 07/27/23 Status: Ordered oxyCODONE 10 mg oral tablet 1 tablet = 10 mg, By Mouth, Every 6 hours, PRN as needed for pain, rock drill operator assessed fill 09/15, # 112 tablet, 0 Refills, Maintenance, 09/14/23 20:05:00 EST, Tablet, [facility]/pharmacy #1972, Partial fill upon patient request if the prescription is for a schedule... Start Date: 09/14/23 Stop Date: 10/12/23 Status: Ordered OxyCONTIN 20 mg oral tablet, extended release 20 mg, 1, tablet, By Mouth, Every 12 hours, rock drill operator chacked fill 09/15/23, # 56 tablet, Refills 0, Tot. Refills 0, Maintenance, 09/14/23 20:07:00 EST, Route to Pharmacy Electronically, [facility]/pharmacy #1972,Partial fill upon patient request if the prescripti... Start Date: 09/14/23 Stop Date: 10/12/23 Status: Ordered Vasile See Instructions, # 1 each, Maintenance, DX: M54.9, M25.569, M25.559 Rollator vasile, 06/24/23 12:55:00 EST, Supply Start Date: 06/24/23 Status: Ordered Problem List Condition Confirmation Course Effective Dates Status H ealth Status Informant Achalasia Confirmed Active Adenocarcinoma of lung 1 Confirmed Active Anxiety Confirmed Active Bronchitis Confirmed Active Chronic back pain Confirmed Active Chronic neck pain Confirmed Active COPD (chronic obstructive pulmonary disease) Confirmed Active Low serum cortisol level Confirmed Active Hemorrhoids Confirmed Active Hypertension Confirmed Active Lumbar disc herniation with radiculopathy Confirmed Active Medial epicondylitis, right elbow Confirmed Active Polyarthralgia Confirmed Active Multiple lung nodules Confirmed Active Opioid use disorder, severe, in sustained remission Confirmed Active Tobacco use disorder Confirmed Active 72269 r lung wedge resection Social History Social History Type Response Smoking Status Former smoker, quit more than 30 days ago; Total pack years: 45; entered on: 09/17/23 Sex Patient Care team information Care Team Personnel Name: Aurelia Yang RN Position: [facility] RN Member Role: Primary Care Nurse Name: Rhonda Escobedo NP Position: [facility] PCO Associate Professional Member Role: PCP Address: Address: [address] [place] [address], [address] [place], [place] [address] Name: Yue Delgado RN Position: S RN Member Role: Primary Care Nurse Name: Debo Gagnon Position: S RN Member Role: Primary Care Nurse Name: Lisa Awad RN Position: S RN Member Role: Primary Care Nurse Name: Elly Rodriges RN Position: [facility] SN RN Member Role: Primary Care Nurse Name: Nilda Pop RN Position: S RN Member Role: Primary Care Nurse Care Team Related Persons Name: CHARLINE DIOP Address: [place] [address] Name: ELDER ANDERSON Address: home [address] [facility] [address] [place] [address] Name: MAEGAN ANDERSON Address: home [address] [place] [address]
--- OUTSIDE RECORDS SUMMARY | 2024-03-09 07:26 | XMS_ITS | Continuity of Care Document ---
Author Organization [facility] Address [address] [place] [address]- Care Team Providers Care Employment Attorney Name Role Phone Tonja TOURE, Jeannette Olivera Primary Care Physicia n [facility] Date[facility]): 03/20/21 - 04/19/21 [facility] [address] [address]- Attending Physician: Sam Carter Admitting Physician: Sam Carter Referring Physician: AdmtrSam Allergies, Adverse Reactions, Alerts Substance Reaction Severity Status morphine 1 combative CONFUSED OUT OF IT Active 1hallucintations, confusion Immunizations Given and Recorded Vaccine Date Status Refusal Reason influenza virus vaccine, inactivated 03/03/21 Pedro rded influenza virus vaccine, inactivated 02/18/20 Pedro rded influenza virus vaccine, inactivated 02/26/18 Pedro rded influenza virus vaccine, inactivated 04/05/17 Pedro rded influenza virus vaccine, inactivated 03/28/14 Epdro rded influenza virus vaccine, inactivated 04/03/11 Pedro rded influenza virus vaccine, inactivated 04/22/10 Pedro rded influenza virus vaccine, inactivated 03/12/10 Pedro rded influenza virus vaccine, inactivated 07/04/08 Pedro rded SARS-CoV-2 (COVID-19) Ad26 vaccine 10/21/20 Record ed pneumococcal 13-valent vaccine 05/03/19 Recorded Zoster Vaccine Live 01/19/17 Recorded influ virus vac, H1N1, inactive(oldterm) 08/14/09 Given pneumococcal 23-valent vaccine 08/14/09 Given tetanus/diphtheria/pertussis, acel(Tdap) 07/04/08 Recorded Medications atorvastatin 20 mg oral tablet 1 tablet = 20 mg, By Mouth, Daily, # 30 tablet, 3 Refills, Maintenance, 03/07/21 15:26:00 EDT, Tablet, [facility]/pharmacy #1234, Partial fill upon patient request if the prescription is for a schedule II opioid drug., 170, cm, 03/07/21 8:45:00 EDT, Height,... Start Date: 03/07/21 Status: Ordered Back Brace See Instructions, # [...] opioid drug. Start Date: 12/06/20 Status: Ordered clonazepam 2 mg oral tablet 2 mg, 1, tablet, By Mouth, 3 times a day, 1 mg in AM and afternoon; 2 mg at bedtime, 0 Refills Start Date: 09/09/07 Status: Ordered gabapentin 600 mg oral tablet 1 tablet = 600 mg, By Mouth, 3 times a day, # 90 tablet, 0 Refills, Maintenance, 03/13/21 9:20:00 EDT, Tablet, Partial fill upon patient request if the prescription is for a schedule II opioid drug. Start Date: 03/13/21 Status: Ordered Home Blood Pressure Monitor See Instructions, # 1 each, Maintenance, Use to check blood pressure at home., 03/06/21 11:40:00 EDT, Supply Start Date: 03/06/21 Status: Ordered lisinopril 20 mg oral tablet 20 mg, 1, tablet, By Mouth, Daily, # 30 tablet, Refills 5, Tot. Refills 5, Maintenance, 04/08/21 7:58:00 EDT, Route to Pharmacy Electronically, [facility]/pharmacy #1234, Partial fill upon patient request if the prescription is for a schedule II opioid drug.... Start Date: 04/08/21 Status: Ordered Nicotrol Inhaler 10 mg inhalation device See Instructions, use 6 cartridges per day, # 84 capsule, 0 Refills, Maintenance, 04/15/21 10:30:00EDT, [facility]/pharmacy #1234, Partial fill upon patient request if the prescription is for a schedule IIopioid drug., use 6 cartridges per day, 170, cm, 09... Start Date: 04/15/21 Status: Ordered omeprazole 20 mg oral delayed release tablet 1 tablet = 20 mg, By Mouth, Daily, # 90 tablet, 1 Refills, Maintenance, 08/23/20 13:22:00 EST, CR Tablet, [facility]/pharmacy #1234, Partial fill upon patient request if the prescription is for a schedule II opioid drug., 170, cm, 08/21/20 6:19:00 EST, Heigh... Start Date: 08/23/20 Status: Ordered ProAir HFA 90 mcg/inh inhalation aerosol 2 puffs, Inhalation, Every 4 hours, PRN NEEDED FOR WHEEZE, # 1 each, 5 Refills, Maintenance, 03/01/21 12:03:00 EDT, [facility]/pharmacy #1234, 2 puffs Inhalation Every 4 hours,PRN: NEEDED FOR WHEEZE, 170, cm, 02/26/21 12:12:00 EDT, Height, 58, kg, 12/06... Start Date: 03/01/21 Status: Ordered Problem List Condition Effective Dates [...]
--- OUTSIDE RECORDS SUMMARY | 2024-03-09 07:27 | XMS_ITS | Continuity of Care Document ---
Author Organization [facility] Address Unknown Care Team Providers Care Recreation Adviser Name Role Phone Tonja TOURE, Jeannette Olivera Primary Care Physicia n [facility]): 05[facility]09[facility]21 - 06/08/21 [facility] Allergies, Adverse Reactions, Alerts Substance Reaction Severity [...] 3 Refills, Maintenance, 03/07/21 15:26:00 EDT, Tablet, [facility], Partial fill upon patient request [...] Supply Start Date: 03/06/21 Status: Ordered lisinopril 10 mg oral tablet 4 tablets, By Mouth, Daily, # 30 tablet, Refills 0, Maintenance, 05/14/21 9:22:00 EDT, Partial fillupon patient request if the prescription is for a schedule II opioid drug. Start Date: 05/14/21 Status: Ordered Nicotrol Inhaler 10 mg inhalation device See Instructions, use 6 cartridges per day, # 84 capsule, 0 Refills, Maintenance, 04/15/21 10:30:00EDT, [facility]/pharmacy #1234, Partial fill upon patient request if the prescription is for a schedule IIopioid drug., use 6 cartridges per day, 170, cm, 09... Start Date: 04/15/21 Status: Ordered ProAir HFA 90 mcg/inh inhalation aerosol 2 puffs, Inhalation, Every 4 hours, PRN NEEDED FOR WHEEZE, # 1 each, 5 Refills, Maintenance, 03/01/21 12:03:00 EDT, [facility], 2 puffs Inhalation Every 4 [...]
--- OUTSIDE RECORDS SUMMARY | 2024-03-09 07:27 | XMS_ITS | Continuity of Care Document ---
Author Organization [facility] Address [address] [place] [id number]- Care Team Providers Care Dispatcher Bus And Trolley Name Role Phone Chaim Templeton MD Primary Care Physician Encounter [facility] Date(s): 11/02/19 - 11/09/19 [facility] [address] [place] [id number]- [facility] Attending Physician: Cece Becker DO Referring Physician: Chaim Templeton MD Allergies, Adverse Reactions, Alerts Substance Reaction Severity Status morphine 1 combative CONFUSED OUT OF IT Active 1hallucintations, confusion Immunizations Given and Recorded Vaccine Date Status Refusal Reason influ virus vac, H1N1, inactive(oldterm) 08/14/09 Given pneumococcal 23-valent vaccine 08/14/09 Given Medications baclofen 10 mg oral tablet 10 mg, 1, tablet, By Mouth, 3 times a day, # 60 tablet, Refills 0, Tot. Refills 0, Maintenance, 10/13/19 11:24:00 EDT, Route to Pharmacy Electronically, [facility]/pharmacy #[id number], 170, cm, 09/20/19 9:02:00 EST, Height, 59.4, kg, 04/07/19 15:15:00 EDT, Dry We... Start Date: 10/13/19 Status: Ordered buprenorphine-naloxone 2 mg-0.5 mg sublingual film 2 film, Sublingual, Daily, dissolve under the tongue, 0 Refills, Maintenance, 09/20/19 9:05:00 EST,Film Start Date: 09/20/19 Status: Ordered CeleBREX 200 mg oral capsule 1 capsule = 200 mg, By Mouth, 2 times a day, Stop ibuprofen and meloxicam, # 60 capsule, 0 Refills,Maintenance, 08/31/19 14:03:00 EST, Capsule, [facility]/pharmacy #1234, 170, cm, 08/31/19 13:40:00 EST, Height, 59.4, kg, 04/07/19 15:15:00 EDT, Dry Weight Start Date: 08/31/19 Status: Ordered clonazepam 2 mg oral tablet [...] right elbow Start Date: 05/18/19 Status: Ordered gabapentin 300 mg oral capsule 1, capsule, By Mouth, 3 times a day, # 90 capsule, Refills 1, Tot. Refills 0, Maintenance, 208:55:00 EDT, Route to Pharmacy Electronically, [id number], 170, cm, 09/20/19 9:02:00 EST, Height, 59.4, kg, 04/07/19 15:15:00 EDT, Dry Weight Start Date: 11/04/19 Status: Ordered lisinopril 2.5 mg oral tablet 2.5 mg, 1, tablet, By Mouth, Daily, # 90 tablet, Refills 1, Tot. Refills 1, Maintenance, 07/14/19 10:49:00 EST, Route to Pharmacy Electronically, [facility]/pharmacy #1234, 170, cm, 07/04/19 9:01:00 EST, Height, 59.4, kg, 04/07/19 15:15:00 EDT, Dry Weight Start Date: 07/14/19 Status: Ordered Medrol Dosepak 4 mg oral tablet 1 pack/packet, By Mouth, Once, as directed on package labeling, # 21 tablet, 0 Refills, Soft Stop, 10/21/19 9:15:00 EDT, Tablet, [facility]/pharmacy #1234, 170, cm, 09/20/19 9:02:00 EST, Height, 59.4, kg, 04/07/19 15:15:00 EDT, Dry Weight Start Date: 10/21/19 Status: Ordered ProAir HFA 90 mcg/inh inhalation aerosol with adapter See Instructions, TAKE 2 PUFFS BY MOUTH EVERY 4 HOURS NEEDED FOR WHEEZE, # 18 Gm, Refills 2, Tot. Refills 2, Soft Stop, 11/07/19 15:48:00 EDT, Instructions Replace Required Details, Route to Pharmacy Electronically, [id number]... Start Date: 11/07/19 Status: Ordered Suboxone 8 mg-2 mg sublingual [...] ankle pain(Confirmed) Active Anxiety(Confirmed) Active Bronchitis(Confirmed) Active Chronic back pain(Confirmed) Active Chronic neck pain(Confirmed) Active Dysphagia(Confirmed) Active Hand pain(Confirmed) Active Hypertension(Confirmed) Active Effusion of left knee(Confirmed) Active Knee pain(Confirmed) Active Lung mass(Confirmed) Active Medial epicondylitis, right elbow(Confirmed) Active Polyarthralgia(Confirmed) Active Myalgia(Confirmed) Active Preop examination(Confirmed) Active Pain in the shoulder(Confirmed) Active Tobacco use disorder(Confirmed) Active Social History Social History Type Response Smoking Status Current every day karina okbal; Type: Cigarettes; Tobacco use times per day: 12 cigerettes a day; Number of years: 35; entered on: 04/16/15 Sex
--- OUTSIDE RECORDS SUMMARY | 2024-03-09 07:27 | XMS_ITS | Continuity of Care Document ---
Author Organization [facility] Address [address] [place] [address], [address] [place] [address]- Care Team Providers Care Diamond Die Maker Name Role Phone Fanny TOURE, Rhonda Primary Care Physician [phone] Encounter [facility] Date(s): 04/10/22 - 04/17/22 [facility] [address] [place] [address], [address] [place], [place] [address] Attending Physician: Not on Staff, Attending MD Referring Physician: Rhonda Escobedo NP Allergies, Adverse Reactions, Alerts Substance Reaction Severity Status morphine 1 combative CONFUSED OUT OF IT Active 1hallucintations, confusion Immunizations Given and Recorded Vaccine Date Status Refusal Reason influenza virus vaccine, inactivated 03/19/22 Pedro rded [...] Albuterol (Eqv-ProAir HFA) 90 mcg/inh inhalation aerosol 2 puffs, Inhalation, Every 4 hours, PRN NEEDED FOR WHEEZING, # 8.5 each, 5 Refills, 02/05/22 13:07:00 EDT, [facility], 17, 2 puffs Inhalation Every 4 hours,PRN: NEEDED FOR WHEEZING, 170,cm, 12/31/21 8:21:00 EDT, Height, 50, kg, 11/15/21... Start Date: 02/05/22 Status: Ordered amLODIPine 5 mg oral tablet 1 tablet, By Mouth, Daily, # 90 tablet, 0 Refills, Maintenance, 03/25/22 13:14:00 EDT, [facility], 170, cm, 12/31/21 8:21:00 EDT, Height, 50, kg, 11/15/21 11:23:00 EDT, Dry Weight Start Date: 03/25/22 Status: Ordered Anusol-HC 2.5% cream with applicator 1 application, Rectally, 2 times a day, # 30 Gm, 1 Refills, Maintenance, 09/24/21 13:25:00 EST, Cream, [facility], Partial fill upon patient request if the prescription is for a schedule II opioid drug., 1 application Rectally 2 times a day, 1... Start Date: 09/24/21 Status: Ordered Anusol-HC 2.5% cream with applicator 1 application, Rectally, 2 times a day, # 30 Gm, 1 Refills, Maintenance, 06/27/21 14:24:00 EST, Cream, [facility], Partial fill upon patient request if the prescription is for a schedule II opioid drug., 1 application Rectally 2 times a day, 1... Start Date: 06/27/21 Status: Ordered atorvastatin 20 mg oral tablet 1 tablet = 20 mg, By Mouth, Daily, # 30 tablet, 5 Refills, Maintenance, 11/17/21 19:20:00 EDT, Tablet, [facility], Partial fill upon patient request if the prescription is for a schedule II opioid drug., 170, cm, 11/15/21 11:23:00 EDT, Height,... Start Date: 11/17/21 Status: Ordered atorvastatin 20 mg oral tablet See Instructions, TAKE 1 TABLET BY MOUTH EVERY DAY, # 90 tablet, 1 Refills, [id number], 170, cm, 12/17/21 8:41:00 EDT, Height, 50, kg, 11/15/21 11:23:00 EDT, Dry Weight Start Date: 12/17/21 Status: Ordered Back Brace See Instructions, # 1 each, Refills 0, Tot. Refills 0, Maintenance, Use for low back support, 07/06/20 14:42:00 EST, Supply Start Date: 07/06/20 Status: Ordered Clonazepam = 1 mg, By [...] EDT, Supply Start Date: 05/03/21 Status: Ordered Home Blood Pressure Monitor See Instructions, # 1 each, Maintenance, Use to check blood pressure at home., 03/06/21 11:40:00 EDT, Supply Start Date: 03/06/21 Status: Ordered hydrocortisone 2.5% topical cream 1 application, Topically, 3 times a day, # 30 Gm, 2 Refills, Maintenance, 09/24/21 11:18:00 EST, Cream, [facility], Partial fill upon patient request if the prescription is for a schedule II opioid drug., 1 application Topically 3 times a day,... Start Date: 09/24/21 Status: Ordered hydrocortisone topical 25 mg suppository 1 supp = 25 mg, Rectally, 2 times a day, # 28 supp, 0 Refills, Maintenance, 10/02/21 13:05:00 EDT, Suppository, [facility], Partial fill upon patient request if the prescription is for a schedule II opioid drug., 170, cm, 10/02/21 10:36:00 EDT... Start Date: 10/02/21 Stop Date: 10/16/21 Status: Ordered ipratropium nasal 21 mcg/inh spray See Instructions, INSTILL 2 SPRAYS INTO EACH NOSTRIL 3 TIMES A DAY NEEDED FOR CONGESTION, # 30 Unknown, 3 Refills, [facility] ST[facility]23, 30, INSTILL 2 SPRAYS INTO EACH NOSTRIL 3 TIMES A DAY NEEDED FOR CONGESTION, 170, cm, 12/31/21 8:21:00 EDT, Height... Start Date: 03/03/22 Status: Ordered lisinopril 10 mg oral tablet 1, tablet, By Mouth, Daily, # 90 tablet, Refills 1, Tot. Refills 1, Maintenance, 02/16/22 16:25:00 EDT, Route to Pharmacy Electronically, [facility]/pharmacy #1234, 170, cm, 12/31/21 8:21:00 EDT, Height, 50, kg, 11/15/21 11:23:00 EDT, Dry Weight Start Date: 02/16/22 Status: Ordered Nicotrol Inhaler 10 mg inhalation device See Instructions, USE 6 CARTRIDGES PER DAY, # 168 Unknown, 0 Refills, Maintenance, 02/03/22 9:21:00EDT, [facility]/pharmacy #1234, 28, USE 6 CARTRIDGES PER DAY, 170, cm, 12/31/21 8:21:00 EDT, Height, 50, kg, 11/15/21 11:23:00 EDT, Dry Weight Start Date: 02/03/22 Status: Ordered oxyCODONE 10 mg oral tablet 1 tablet = 10 mg, By Mouth, Every 6 hours, PRN as needed for severe pain, fill on 05/02/22, # 112 tablet, 0 Refills, Maintenance, 04/17/22 8:05:00 EDT, Tablet, [facility]/pharmacy #1234, Partial fill upon patient request if the prescription is for a schedule... Start Date: 04/17/22 Stop Date: 05/15/22 Status: Ordered OxyCONTIN 10 mg oral tablet, extended release 10 mg, 1, tablet, By Mouth, Every 12 hours, fill on 05/02/22, # 56 tablet, Refills 0, Tot. Refills 0, Maintenance, 04/17/22 8:05:00 EDT, Route to Pharmacy Electronically, [facility]/pharmacy #[id number], in addition to his IR oxycodone, 170, cm, 04/10/22 14:30:00... 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 Medial epicondylitis, right elbow Confirmed Active Polyarthralgia Confirmed Active Multiple lung nodules Confirmed Active Opioid use disorder, severe, in sustained remission Confirmed Active Tobacco use disorder Confirmed Active Vital Signs Most recent to oldest [Reference Range]: 1 Height 170 cm (04/10/22 2:30 PM) Weight 56.9 kg (04/10/22 2:30 PM) Oxygen Saturation [94-100 %] 94 % (04/10/22 2:30 PM) Pulse Rate [55-90 bpm] 56 bpm (04/10/22 2:30 PM) Body Mass Index [18.5-24.99 kg/m2] 19.69 kg/m2 (04/10/22 2:30 PM) Blood Pressure [90-138/55-84 mm Hg] 142/ 68mm Hg *H* (04/10/22 2:30 PM) Temperature [96.8-100.4 DegF] 98.9 DegF (04/10/22 2:30 PM) Mode of Delivery (Oxygen) Room air (04/10/22 2:30 PM) Blood pressure sites Arm, right (04/10/22 2:30 PM) Temperature Route Temporal (04/10/22 2:30 PM) Weight Obtained Via Standing scale (04/10/22 2:30 PM) Social History Social History Type Response Tobacco Other: Smokes about 12 cigarettes daily. Prior to this, smoking about 1 PPD for 35 years.. Sex Patient Care team information Personnel Name: Rhonda Escobedo NP Address: Address: [address] [place] [address], [address] [place], [place] [address]
--- OUTSIDE RECORDS SUMMARY | 2024-03-09 07:27 | XMS_ITS | Continuity of Care Document ---
Author Organization [facility] Adult Address [address] [place] [address]- Care Team Providers Care Contract Manager Name Role Phone Fanny TOURE, Rhonda Primary Care Physician [phone] Encounter [facility] Date(s): 07/29/23 - 08/05/23 [facility] Adult [address] [place] [id number]- Encounter Diagnosis Hand swelling(Discharge Diagnosis) - 07/29/23 Right shoulder pain(Discharge Diagnosis) - 07/29/23 COPD (chronic obstructive pulmonary disease)(Discharge Diagnosis) - 07/29/23 Tobacco use disorder(Discharge Diagnosis) - 07/29/23 Polyarthralgia(Discharge Diagnosis) - 07/29/23 Attending Physician: Ashley Ramsey NP Referring Physician: Rhonda Escobedo NP Allergies, Adverse [...] Pedro rded influenza virus vaccine, inactivated 03/12/10 Perdo rded influenza virus vaccine, inactivated 07/04/08 Pedro [...] COUGH, # 8.5 each, 5 Refills, Maintenance, 05/18/23 13:33:00 EDT, [facility], 25, INHALE 1 PUFF 4 TIMES A DAY NEEDED FOR COUGH, 170, cm, 05/05/23 12:54:00 EDT, Height, 50, kg, 11/15/21 11:2... Start Date: 05/18/23 Status: Ordered amLODIPine 5 mg oral tablet 1 tablet, By Mouth, Daily, # 90 tablet, 1 Refills, Maintenance, 06/09/23 9:12:00 EST, [id number], 170, cm, 06/03/23 14:00:00 EST, Height, 51, kg, 06/03/23 14:00:00 EST, Dry Weight Start Date: 06/09/23 Status: Ordered atorvastatin 20 mg oral tablet 1 tablet, By Mouth, Daily, # 90 tablet, 1 Refills, Maintenance, 07/29/23 9:02:00 EST, [facility], 170, cm, 06/23/23 10:13:00 EST, Height, 51, kg, 06/03/23 14:00:00 EST, Dry Weight Start Date: 07/29/23 Status: Ordered celecoxib 200 mg oral capsule 1 capsule = 200 mg, By Mouth, 2 times a day, # 14 capsule, 0 Refills, Maintenance, 06/04/23 13:40:00 EST, Capsule, [facility], Partial fill upon patient [...] 06/04/23 13:40:00 EST, Route to Pharmacy Electronically, [facility], Partial fill uponpatient request if the [...] Unknown, 5 Refills, Maintenance, 12/11/22 19:25:00 EDT, [facility], 90, INSTILL 2 SPRAYS INTO EACH NOSTRIL 3 TIMES A DAY NEEDED FOR CONGESTION, 1... Start Date: 12/11/22 Status: Ordered metoprolol 25 mg oral tablet 12.5 mg, 0.5, tablet, By Mouth, Every 12 hours, # 30 tablet, Refills 0, Tot. Refills 0, Maintenance, 06/04/23 13:43:00 EST, Route to Pharmacy Electronically, [facility], Partial fill upon patient request if the prescription is for a sche... Start Date: 06/04/23 Stop Date: 07/04/23 Status: Ordered nicotine 14 mg/24 hr transdermal film, extended release 1 patch, Topically, Daily, # 28 patch, 0 Refills, Maintenance, 07/27/23 14:23:00 EST, [facility] STORE 27821, 28, APPLY 1 PATCH TOPICALLY DAILY, 170, cm, 06/23/23 10:13:00 EST, Height, 51, kg, 06/03/23 14:00:00 EST, Dry Weight Start Date: 07/27/23 Status: Ordered oxyCODONE 5 mg oral tablet 10 mg, 2, tablet, By Mouth, Every 6 hours, PRN, fill on 07/21/22, # 224 tablet, Refills 0, Tot. Refills 0, Maintenance, as needed for pain, 07/18/23 10:23:00 EST, Route to Pharmacy Electronically, [facility]/pharmacy #[id number], Partial fill upon patient request if... 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 Refills 0, Maintenance, 07/18/23 10:23:00 EST, Route to Pharmacy Electronically, [facility]/pharmacy #1972, Partial fill upon patient request if the prescriptio... Start Date: 07/18/23 Stop Date: 08/15/23 Status: Ordered Vasile See Instructions, # 1 [...] Confirmed Active Tobacco use disorder Confirmed Active 27598 r lung wedge resection Diagnosis Diagnosis Type Effective Dates Health Status Clinical Service Informant Hand swelling Discharge Diagnosis 07/29/23 Right shoulder pain Discharge Diagnosis 07/29/23 COPD (chronic obstructive pulmonary disease) Discharge Diagnosis 07/29/23 Tobacco use disorder Discharge Diagnosis 07/29/23 Polyarthralgia Discharge Diagnosis 07/29/23 Vital Signs Most recent to oldest [Reference Range]: 1 Height 170 cm (07/29/23 2:04 PM) Weight 55.1 kg (07/29/23 2:04 PM) Oxygen Saturation [94-100 %] 96 % (07/29/23 2:04 PM) Pulse Rate [55-90 bpm] 67 bpm (07/29/23 2:04 PM) Body Mass Index [18.5-24.99 kg/m2] 19.07 kg/m2 (07/29/23 2:04 PM) Blood Pressure [90-138/55-84 mm Hg] 114/ 55mm Hg (07/29/23 2:04 PM) Temperature [96.8-100.4 DegF] 98.7 DegF (07/29/23 2:04 PM) Mode of Delivery (Oxygen) Room air (07/29/23 2:04 PM) Blood pressure sites Arm, left (07/29/23 2:04 PM) Temperature Route Oral (07/29/23 2:04 PM) Weight Obtained Via Standing scale (07/29/23 2:04 PM) Social History Social History Type Response Tobacco Use: 4 or less cigar ettes(less than 1/4 pack)/day in last 30 days. Other: 2-3 cig/d x 40 years; was at 0.5 pp/d. Sex Note * Sherlyn Camejo: PERFORM, SIGN, VERIFY Event Display: Patient Education/Instruction Authored Date: [id number] [facility] Clinical Summary Name MIREYA ANDERSON Age 68 Years 1955 PCP Rhonda Escobedo NP PCP Visit Date 07/29/2023 13:44:00 Additional Instructions: Scheduled Appointments?? Future Appointments ?*[facility] ?[address],??[address] ?Phone:??--?Fax:??-- ?Appt. Date:??09/17/2023?9:55 AM ?Scheduled Provider:??Rhonda Escobedo NP Follow-Up Instructions ?? Diagnosis Other specified soft tissue disorders; Chronic obstructive pulmonary disease, unspecified; Nicotinedependence, unspecified, uncomplicated; Pain in right shoulder; Pain in unspecified joint Medications: Please continue your medications until treatment is completed or stopped by your provider. Discuss any questions related to medications with your provider. Medications to Continue with No Changes These medications were not printed or sent to your pharmacy Albuterol (Albuterol (Eqv-ProAir HFA) 90 mcg/inh inhalation aerosol) 1 puff(s) Inhalation 4 times aday as needed NEEDED FOR COUGH. Refills: 5. Next Dose: Amlodipine (amLODIPine 5 mg oral tablet) 1 tab(s) Oral Daily. Refills: 1. Next Dose: Atorvastatin (atorvastatin 20 mg oral tablet) 1 tab(s) Oral Daily. Refills: 1. Next Dose: Celecoxib (celecoxib 200 mg oral capsule) 1 capsule Oral twice a day for 7 Days. Refills: 0. Next Dose: Cholecalciferol (cholecalciferol 50,000 intl units oral capsule) 1 capsule Oral every 7 days for 90Days. Refills: 3. Next Dose: Clonazepam 1 Milligram Oral 3 times a day as needed Anxiety. Next Dose: Durable Medical Equipment (Home Blood Pressure Monitor) Use to check blood pressure at home.. Refills: 0. Next Dose: Durable Medical Equipment (Walker) DX: M54.9, M25.569, M25.559 Rollator walker. Refills: 0. Next Dose: Gabapentin (gabapentin 300 mg oral capsule) 1 capsule Oral 3 times a day for 21 Days. Refills: 0. Next Dose: Ipratropium Nasal (ipratropium nasal 21 mcg/inh spray) INSTILL 2 SPRAYS INTO EACH NOSTRIL 3 TIMES ADAY NEEDED FOR CONGESTION. Refills: 5. Next Dose: Metoprolol (metoprolol 25 mg oral tablet) 0.5 tab(s) Oral every 12 hours for 30 Days. Refills: 0. Next Dose: Miscellaneous Rx (Ensure) 3 cans daily to maintain weight. Equal numbers chocolate and strawberry. Dx achalasia. Refills: 5. Next Dose: Nicotine (nicotine 14 mg/24 hr transdermal film, extended release) 1 patch(es) Topically Daily. Refills: 0. Next Dose: Oxycodone (oxyCODONE 5 mg oral tablet) 2 tab(s) Oral every 6 hours as needed as needed for pain for28 Days. fill on 07/21/22. Refills: 0. 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 Refills: 0. Next Dose: Allergy Info:?? morphine Medications Given This Visit Future Orders ?Shoulder Min 2 Views Right? Order Date:07/29/23?- Complete on or after?07/29/23 ?Hand Min 3 Views Left? Order Date:07/29/23?- Complete on or after?07/29/23 ?Hand Min 3 Views Right? Order Date:07/29/23?- Complete on or after?07/29/23 Vital Signs Height 170 cm Weight 55.1 kg BMI 19.07 kg/m2 Blood Pressure 114 mm Hg/55 mm Hg Temperature 98.7 DegF Pulse Rate 67 bpm Respiratory Rate 02 Sat Mode of Delivery 96 %/Room air You can now view a summary of your hospital visit from the comfort of your home through a free online portal called [employer]. [employer] is a website that allows you to securely view your medical information including discharge summary, medications and follow-up visits. ??You can alsosend a secure electronic message to your doctor???s office to request appointments, renew medications or just ask a question. You can enroll at [email or web address] or register during your next office visit. Disclaimer:?? The information provided is of a general nature and is intended to be used in conjunction with the recommendations and advice of your health care practitioner. ??Every effort has been made to ensure that the information provided is accurate and complete at the time it is provided to you however, as your needs change, or, as new ??information becomes available, different or additional instructions may be required. If you have questions, please consult with your primary care provider or pharmacist, as appropriate. ??This information is not intended to serve as substitution for assessment and evaluation by a qualified health care provider. If you do not have a primary care provider, you may find a [facility] provider by calling [facility] Link at [phone]. [facility], in keeping with [facility] guidance, no longer requires face masks for staff, patientsor visitors in most situations. Similar to time spent indoors at other locations, there is the chance that you were exposed to respiratory viruses during your time with us (such as flu or COVID-19).? If you develop symptoms concerning for a viral respiratory infection, please seek testing (and treatment if indicated) from your medical provider or home test kit. For information about the plan of care including goals and instructions for your diagnosis, please see the patient education orders section of this document. Patient Education Materials?? The content of this educational material or handout may have been modified, supplemented, or adapted from its original content and format to support your individualized medical care. Patient Care team information Care Team Personnel Name: Aurelia Yang RN Position: S RN Member Role: Primary Care Nurse Name: Rhonda Escobedo NP Position: [facility] PCO Associate Professional Member Role: PCP Address: Address: [address] [place] [address], [address] [place], [place] [address] Name: Yue Delgado RN Position: S RN Member Role: Primary Care Nurse Name: Debo Gagnon Position: S RN Member Role: Primary Care Nurse Name: Lisa Awad RN Position: S RN Member Role: Primary Care Nurse Name: Elly Rodriges RN Position: [facility] RN Member Role: Primary Care Nurse Name: Nilda Pop RN Position: S RN Member Role: Primary Care Nurse Care Team Related Persons Name: CHARLINE DIOP Address: [place] [address] Name: ELDER ANDERSON Address: home [address] [place] [address] Name: MAEGAN ANDERSON Address: home [address] [place] [address]
--- OUTSIDE RECORDS SUMMARY | 2024-03-09 07:27 | XMS_ITS | Continuity of Care Document ---
Author Organization [facility] Address Unknown Care Team Providers Care Vending Machine Filler Name Role Phone Tonja TOURE, Jeannette Olivera Primary Care Physicia n Encounter [facility] Date(s): 05/29/21 - 06/28/21 [facility] Allergies, Adverse Reactions, Alerts Substance [...] 1 Refills, Maintenance, 06/27/21 14:24:00 EST, Cream, [facility]/pharmacy #[id number], Partial fill upon patient request if the prescription is for a schedule II opioid drug., 1 application Rectally 2 times a day, 1... Start Date: 06/27/21 Status: Ordered atorvastatin 20 mg oral tablet 1 tablet = 20 mg, By Mouth, Daily, # 30 tablet, 5 Refills, Maintenance, 06/19/21 8:09:00 EST, Tablet, [facility]/pharmacy #1234, Partial fill upon patient [...] 84 capsule, 0 Refills, Maintenance, 04/15/21 10:30:00EDT, [facility]/pharmacy #1234, Partial fill upon patient [...]
--- OUTSIDE RECORDS SUMMARY | 2024-03-09 07:27 | XMS_ITS | Continuity of Care Document ---
Author Organization [facility] Adult Address [address] [place] [address]- Care Team Providers Care Bookmobile Clerk Name Role Phone Fanny TOURE, Rhonda Primary Care Physician Encounter [facility] Date(s): 09/14/23 - 10/14/23 [facility] [address] [place] [address]- Allergies, Adverse Reactions, Alerts Substance Reaction Severity [...] Refills, Maintenance, 06/09/23 9:12:00 EST, [id number], 170, cm, 06/03/23 14:00:00 EST, Height, 51, kg, 06/03/23 14:00:00 EST, Dry Weight Start Date: 06/09/23 Status: Ordered atorvastatin 20 mg oral tablet 1 tablet, By Mouth, Daily, # 90 tablet, 1 Refills, Maintenance, 07/29/23 9:02:00 EST, [id number], 170, cm, 06/23/23 10:13:00 EST, Height, 51, kg, 06/03/23 14:00:00 EST, Dry Weight Start Date: 07/29/23 Status: Ordered celecoxib 200 mg oral capsule 1 capsule = 200 mg, By Mouth, 2 times a day, # 14 capsule, 0 Refills, Maintenance, 06/04/23 13:40:00 EST, Capsule, [facility], Partial fill upon patient request [...] 06/04/23 13:40:00 EST, Route to Pharmacy Electronically, [facility], Partial fill uponpatient request if the [...] Unknown, 5 Refills, Maintenance, 12/11/22 19:25:00 EDT, [id number], 90, INSTILL 2 SPRAYS INTO EACH NOSTRIL 3 TIMES A DAY NEEDED FOR CONGESTION, 1... Start Date: 12/11/22 Status: Ordered lisinopril 10 mg oral tablet 1, tablet, By Mouth, Daily, # 90 tablet, Refills 1, Maintenance, 09/07/23 9:20:00 EST, Route to Pharmacy Electronically, [id number], 170, cm, 07/29/23 14:04:00 EST, Height, 51, kg, 06/03/23 14:00:00 EST, Dry Weight Start Date: 09/07/23 Status: Ordered metoprolol 25 mg oral tablet 12.5 mg, 0.5, tablet, By Mouth, Every 12 hours, # 30 tablet, Refills 0, Tot. Refills 0, Maintenance, 06/04/23 13:43:00 EST, Route to Pharmacy Electronically, [facility], Partial fill upon patient request if the prescription is for a sche... Start Date: 06/04/23 Stop Date: 07/04/23 Status: Ordered nicotine 14 mg/24 hr transdermal film, extended release 1 patch, Topically, Daily, # 28 patch, 0 Refills, Maintenance, 07/27/23 14:23:00 EST, [id number], 28, APPLY 1 PATCH TOPICALLY DAILY, 170, cm, 06/23/23 10:13:00 EST, Height, 51, kg, 06/03/23 14:00:00 EST, Dry Weight Start Date: 07/27/23 Status: Ordered oxyCODONE 10 mg oral tablet 1 tablet = 10 mg, By Mouth, Every 6 hours, PRN as needed for pain, campus aide assessed fill 10/13/23, # 112tablet, 0 Refills, Maintenance, 10/12/23 17:07:00 EDT, Tablet, [facility]/pharmacy #[id number], Partial fill upon patient request if the prescription is for a sched... Start Date: 10/12/23 Stop Date: 11/09/23 Status: Ordered OxyCONTIN 20 mg oral tablet, extended release 20 mg, 1, tablet, By Mouth, Every 12 hours, campus aide chacked fill 10/13/23, # 56 tablet, Refills 0, Tot. Refills 0, Maintenance, 10/12/23 17:07:00 EDT, Route to Pharmacy Electronically, [facility]/pharmacy #[id number],Partial fill upon patient request if the prescripti... Start Date: 10/12/23 Stop Date: 11/09/23 Status: Ordered Vasile See Instructions, # 1 [...] Confirmed Active Tobacco use disorder Confirmed Active 30610 r lung wedge resection Social History Social History Type Response Smoking Status Former smoker, quit more than 30 days ago; Total pack years: 45; entered on: 09/17/23 Sex Patient Care team information Care Team Personnel Name: Aurelia Yang RN Position: S RN Member Role: Primary Care Nurse Name: Rhonda Escobedo NP Position: [facility] Associate Professional Member Role: PCP Address: Address: [address] [place] [address], [address] [place], [place] [address] Name: Yue Delgado RN Position: S RN Member Role: Primary Care Nurse Name: Debo Gagnon Position: S RN Member Role: Primary Care Nurse Name: Lisa Awad RN Position: S RN Member Role: Primary Care Nurse Name: Elly Rodriges RN Position: [facility] RN Member Role: Primary Care Nurse Name: Nilda Pop RN Position: S RN Member Role: Primary Care Nurse Care Team Related Persons Name: CHARLINE DIOP Address: [place] [address] Name: ELDER ANDERSON Address: home [address] [place] [address] Name: MAEGAN ANDERSON Address: home [address] [place] [address]
--- OUTSIDE RECORDS SUMMARY | 2024-03-09 07:27 | XMS_ITS | Continuity of Care Document ---
Author Organization [facility] Adult Address [address] [place] [address]- Care Team Providers Care Audit Practice Intern Name Role Phone Fanny TOURE, Rhonda Primary Care Physician [phone] Encounter [facility] Date(s): 09/04/23 - 10/04/23 [facility] [address] [place] [address]- Allergies, Adverse Reactions, Alerts Substance Reaction Severity [...] Refills, Maintenance, 06/09/23 9:12:00 EST, [id number], 170, cm, 06/03/23 14:00:00 EST, Height, 51, kg, 06/03/23 14:00:00 EST, Dry Weight Start Date: 06/09/23 Status: Ordered atorvastatin 20 mg oral tablet 1 tablet, By Mouth, Daily, # 90 tablet, 1 Refills, Maintenance, 07/29/23 9:02:00 EST, [facility], 170, cm, 06/23/23 10:13:00 EST, Height, 51, kg, 06/03/23 14:00:00 EST, Dry Weight Start Date: 07/29/23 Status: Ordered celecoxib 200 mg oral capsule 1 capsule = 200 mg, By Mouth, 2 times a day, # 14 capsule, 0 Refills, Maintenance, 06/04/23 13:40:00 EST, Capsule, [facility], Partial fill upon patient [...] 06/04/23 13:40:00 EST, Route to Pharmacy Electronically, [facility], Partial fill uponpatient request if the [...] Unknown, 5 Refills, Maintenance, 12/11/22 19:25:00 EDT, [facility] 71941, 90, INSTILL 2 SPRAYS INTO EACH NOSTRIL 3 TIMES A DAY NEEDED FOR CONGESTION, 1... Start Date: 12/11/22 Status: Ordered lisinopril 10 mg oral tablet 1, tablet, By Mouth, Daily, # 90 tablet, Refills 1, Maintenance, 09/07/23 9:20:00 EST, Route to Pharmacy Electronically, [facility] 30[facility], 170, cm, 07/29/23 14:04:00 EST, Height, 51, kg, 06/03/23 14:00:00 EST, Dry Weight Start Date: 09/07/23 Status: Ordered metoprolol 25 mg oral tablet 12.5 mg, 0.5, tablet, By Mouth, Every 12 hours, # 30 tablet, Refills 0, Tot. Refills 0, Maintenance, 06/04/23 13:43:00 EST, Route to Pharmacy Electronically, [facility], Partial fill upon patient request if the prescription is for a sche... Start Date: 06/04/23 Stop Date: 07/04/23 Status: Ordered nicotine 14 mg/24 hr transdermal film, extended release 1 patch, Topically, Daily, # 28 patch, 0 Refills, Maintenance, 07/27/23 14:23:00 EST, [facility] 47896, 28, APPLY 1 PATCH TOPICALLY DAILY, 170, cm, 06/23/23 10:13:00 EST, Height, 51, kg, 06/03/23 14:00:00 EST, Dry Weight Start Date: 07/27/23 Status: Ordered oxyCODONE 10 mg oral tablet 1 tablet = 10 mg, By Mouth, Every 6 hours, PRN as needed for pain, chinese language professor assessed fill 09/15, # 112 tablet, 0 Refills, Maintenance, 09/14/23 20:05:00 EST, Tablet, [facility]/pharmacy #[id number], Partial fill upon patient request if the prescription is for a schedule... Start Date: 09/14/23 Stop Date: 10/12/23 Status: Ordered OxyCONTIN 20 mg oral tablet, extended release 20 mg, 1, tablet, By Mouth, Every 12 hours, chinese language professor chacked fill 09/15/23, # 56 tablet, Refills 0, Tot. Refills 0, Maintenance, 09/14/23 20:07:00 EST, Route to Pharmacy Electronically, [facility]/pharmacy #[id number],Partial fill upon patient request if the [...] Confirmed Active Tobacco use disorder Confirmed Active 27067 r lung wedge resection Social History Social History Type Response Smoking Status Former smoker, quit more than 30 days ago; Total pack years: 45; entered on: 09/17/23 Sex Patient Care team information Care Team Personnel Name: Aurelia Yang RN Position: S RN Member Role: Primary Care Nurse Name: Rhonda Escobedo NP Position: [facility] PCO Associate Professional Member Role: PCP Address: Address: [address] [place] [address], [address] [place], [place] [address] Name: Yue Delgado RN Position: S RN Member Role: Primary Care Nurse Name: Debo Gagnon Position: S RN Member Role: Primary Care Nurse Name: Lisa Awad RN Position: S RN Member Role: Primary Care Nurse Name: Elly Rodriges RN Position: [facility] RN Member Role: Primary Care Nurse Name: Nilda Pop RN Position: S RN Member Role: Primary Care Nurse Care Team Related Persons Name: CHARLINE DIOP Address: [place] [address] Name: ELDER ANDERSON Address: home [address] [place] [address] Name: MAEGAN ANDERSON Address: home [address] [place] [address]
--- OUTSIDE RECORDS SUMMARY | 2024-03-09 07:27 | XMS_ITS | Continuity of Care Document ---
Author Organization [facility] Address [address] [place] [address]- Care Team Providers Care Operating System Designer Name Role Phone Fanny TOURE, Rhonda Primary Care Physician [facility] Date(s): 02/09/24 - 02/16/24 [facility] [address] [place] [address]- Attending Physician: Not on Staff, Attending MD [...] Daily, # 90 tablet, 1 Refills, Maintenance, 01/28/24 14:32:00 EDT, [facility], 170, cm, 01/08/24 10:04:00 EDT, Height, 51, kg, 06/03/23 14:00:00 EST, Dry Weight Start Date: 01/28/24 Status: Ordered atorvastatin 20 mg oral tablet 1 tablet, By Mouth, Daily, # 90 tablet, 1 Refills, Maintenance, 07/29/23 9:02:00 EST, [facility], 170, cm, 06/23/23 10:13:00 EST, Height, 51, kg, 06/03/23 14:00:00 EST, Dry Weight Start Date: 07/29/23 Status: Ordered celecoxib 200 mg oral capsule 1 capsule = 200 mg, By Mouth, 2 times a day, # 14 capsule, 0 Refills, Maintenance, 06/04/23 13:40:00 EST, Capsule, [facility], Partial fill upon patient request if the prescription is for a schedule II opioid drug., 170, cm, 06/03/23 14:... Start Date: 06/04/23 Stop Date: 06/11/23 Status: Ordered cholecalciferol 50,000 intl units oral capsule 1 capsule = 50,000 International_Units, By Mouth, Every 7 days, # 13 capsule, 3 Refills, Maintenance, 01/28/24 15:41:00 EDT, Capsule, [facility], Partial fill upon patient request, 170, cm, 01/08/24 10:04:00 EDT, Height, 51, kg, 06/03/23 14:00... Start Date: 01/28/24 Stop Date: 01/22/25 Status: Ordered Clonazepam = 1 mg, By [...] EDT, Supply Start Date: 05/12/23 Status: Ordered Home Blood Pressure Monitor See Instructions, # 1 each, Maintenance, Use to check blood pressure at home., 03/06/21 11:40:00 EDT, Supply Start Date: 03/06/21 Status: Ordered ipratropium nasal 21 mcg/inh spray See Instructions, INSTILL 2 SPRAYS INTO EACH NOSTRIL 3 TIMES A DAY NEEDED FOR CONGESTION, # 60 Unknown, 5 Refills, Maintenance, 12/11/22 19:25:00 EDT, [facility], 90, INSTILL 2 SPRAYS INTO EACH NOSTRIL 3 TIMES A DAY NEEDED FOR CONGESTION, 1... Start Date: 12/11/22 Status: Ordered lisinopril 10 mg oral tablet 1, tablet, By Mouth, Daily, # 90 tablet, Refills 1, Maintenance, 09/07/23 9:20:00 EST, Route to Pharmacy Electronically, [facility] 64240, 170, cm, 07/29/23 14:04:00 EST, Height, 51, kg, 06/03/23 14:00:00 EST, Dry Weight Start Date: 09/07/23 Status: Ordered metoprolol 25 mg oral tablet 12.5 mg, 0.5, tablet, By Mouth, Every 12 hours, # 30 tablet, Refills 0, Tot. Refills 0, Maintenance, 06/04/23 13:43:00 EST, Route to Pharmacy Electronically, [facility], Partial fill upon patient request if the prescription is for a sche... Start Date: 06/04/23 Stop Date: 07/04/23 Status: Ordered nicotine 14 mg/24 hr transdermal film, extended release 1 patch, Topically, Daily, # 28 patch, 0 Refills, Maintenance, 07/27/23 14:23:00 EST, [facility], 28, APPLY 1 PATCH TOPICALLY DAILY, 170, cm, 06/23/23 10:13:00 EST, Height, 51, kg, 06/03/23 14:00:00 EST, Dry Weight Start Date: 07/27/23 Status: Ordered oxyCODONE 10 mg oral tablet 1 tablet = 10 mg, By Mouth, Every 6 hours, PRN as needed for pain, head up operator helper assessed fill 02/02/24, # 112tablet, 0 Refills, Maintenance, 01/26/24 8:16:00 EDT, Tablet, [id number], Partial fill uponpatient request if the prescription is for a schedu... Start Date: 01/26/24 Stop Date: 02/23/24 Status: Ordered OxyCONTIN 20 mg oral tablet, extended release 20 mg, 1, tablet, By Mouth, Every 12 hours, head up operator helper chacked fill 02/02/24, # 56 tablet, Refills 0, Tot. Refills 0, Maintenance, 01/26/24 8:16:00 EDT, Route to Pharmacy Electronically, [id number], Partial fill upon patient request if the prescriptio... Start Date: 01/26/24 Stop Date: 02/23/24 Status: Ordered Vasile See Instructions, # 1 [...] Confirmed Active Tobacco use disorder Confirmed Active 41132 r lung wedge resection Social History Social History Type Response Smoking Status Former smoker, quit more than 30 days ago; Total pack years: 45; entered on: 09/17/23 Sex Patient Care team information Care Team Personnel Name: Aurelia Yang RN Position: S RN Member Role: Primary Care Nurse Name: Rhonda Escobedo NP Position: [facility] PCO Associate Professional Member Role: PCP Address: Address: [address] [place] [address], [address] [place] [address]- Name: Yue eDlgado RN Position: S RN Member Role: Primary Care Nurse Name: Debo Gagnon RN Position: S RN Member Role: Primary Care Nurse Name: Lisa Awad RN Position: S RN Member Role: Primary Care Nurse Name: Elly Rodriges RN Position: [facility] RN Member Role: Primary Care Nurse Name: Nilda Pop RN Position: S RN Member Role: Primary Care Nurse Care Team Related Persons Name: CHARLINE DIOP Address: [place] [address] Name: ELDER ANDERSON Address: home [address] [place] [address] Name: MAEGAN ANDERSON Address: home [address] [place] [address]
--- OUTSIDE RECORDS SUMMARY | 2024-03-09 07:27 | XMS_ITS | Continuity of Care Document ---
Author Organization [facility] ter Address [address] [place] [id number] Care Team Providers Care Driver Examiner Name Role Phone Fanny TOURE, Rhonda Primary Care Physician Encounter [facility] Date(s): 06/03/23 - 06/05/[address] [id number] Discharge Disposition: A-D/C Home Attending Physician: Tha Ga DO Admitting Physician: Tha Ga DO Referring Physician: Tha Ga DO Allergies, Adverse Reactions, Alerts Substance Reaction Severity [...] 08/14/09 Given tetanus/diphtheria/pertussis, acel(Tdap) 07/04/08 Recorded Medications acetaminophen 325 mg oral tablet 975 mg, 3, tablet, By Mouth, Every 8 hours, for 7 days, # 63 tablet, Refills 0, Tot. Refills 0, Acute 06/11/23 13:39:00 EST, 06/04/23 13:39:00 EST, Route to Pharmacy Electronically, [facility], Partial fill upon patient request if the pr... Start Date: 06/04/23 Stop Date: 06/11/23 Status: Ordered Albuterol (Eqv-ProAir HFA) 90 mcg/inh inhalation aerosol 1 puffs, Inhalation, 4 times a day, PRN NEEDED FOR COUGH, # 8.5 each, 5 Refills, Maintenance, 05/18/23 13:33:00 EDT, [id number], 25, INHALE 1 PUFF 4 TIMES A DAY NEEDED FOR COUGH, 170, cm, 05/05/23 12:54:00 EDT, Height, 50, kg, 11/15/21 11:2... Start Date: 05/18/23 Status: Ordered celecoxib 200 mg oral capsule 1 capsule = 200 mg, By Mouth, 2 times a day, # 14 capsule, 0 Refills, Maintenance, 06/04/23 13:40:00 EST, Capsule, [facility], Partial fill upon patient request if the prescription is for a schedule II opioid drug., 170, cm, 06/03/23 14:... Start Date: 06/04/23 Stop Date: 06/11/23 Status: Ordered cholecalciferol 50,000 intl units oral capsule 1 capsule = 50,000 International_Units, By Mouth, Every 7 days, # 13 capsule, 3 Refills, Maintenance, 02/08/23 9:24:00 EDT, Capsule, [facility]acy #[id number], Partial fill upon patient request, 170, [...] 06/04/23 13:40:00 EST, Route to Pharmacy Electronically, [facility], Partial fill uponpatient request if the prescription is for a schedu... Start Date: 06/04/23 Stop Date: 06/25/23 Status: Ordered Gabapentin Capsule 300 mg, Capsule, By Mouth, 06/05/23 9:00:00 EST Start Date: 06/05/23 Stop Date: 06/05/23 Status: Completed Home Blood Pressure Monitor See Instructions, # 1 each, Maintenance, Use to check blood pressure at home., 03/06/21 11:40:00 EDT, Supply Start Date: 03/06/21 Status: Ordered ipratropium nasal 21 mcg/inh spray See Instructions, INSTILL 2 SPRAYS INTO EACH NOSTRIL 3 TIMES A DAY NEEDED FOR CONGESTION, # 60 Unknown, 5 Refills, Maintenance, 12/11/22 19:25:00 EDT, [id number], 90, INSTILL 2 SPRAYS INTO EACH NOSTRIL 3 TIMES A DAY NEEDED FOR CONGESTION, 1... Start Date: 12/11/22 Status: Ordered metoprolol 25 mg oral tablet 12.5 mg, 0.5, tablet, By Mouth, Every 12 hours, # 30 tablet, Refills 0, Tot. Refills 0, Maintenance, 06/04/23 13:43:00 EST, Route to Pharmacy Electronically, [facility], Partial fill upon patient request if the prescription is for a sche... Start Date: 06/04/23 Stop Date: 07/04/23 Status: Ordered Metoprolol IR Tablet 12.5 mg, Tablet, By Mouth, Call MD if held, Hold for: HR less than 60, MAP less than 60, 06/05/23 3:00:00 EST Start Date: 06/05/23 Stop Date: 06/05/23 Status: Completed Metoprolol IR Tablet 12.5 mg, Tablet, By Mouth, Call MD if held, Hold for: HR less than 60, MAP less than 60, 06/05/23 7:00:00 EST Start Date: 06/05/23 Stop Date: 06/05/23 Status: Completed MiraLax oral powder for reconstitution = 17 Gm, By Mouth, Daily, for 7 days, # 119 Gm, 0 Refills, Acute 06/11/23 13:40:00 EST, 06/04/23 13:40:00 EST, REC Powder, [facility], Partial fill upon patient request if the prescription is for a schedule II opioid drug., 17 Gm By Mout... Start Date: 06/04/23 Stop Date: 06/11/23 Status: Ordered Nicoderm C-Q 7 mg/24 hr transdermal film, extended release 1 patch, Topically, Daily, # 30 patch, 0 Refills, Maintenance, 05/26/23 10:00:00 EST, Patch, Partial fill upon patient request if the prescription is for a schedule II opioid drug. Start Date: 05/26/23 Status: Ordered oxyCODONE 5 mg oral tablet 10 mg, 2, tablet, By Mouth, Every 6 hours, PRN, Refills 0, Tot. Refills 0, Maintenance, as needed for pain, 06/04/23 14:05:00 EST, Partial fill upon patient request if the prescription is for a schedule II opioid drug. Start Date: 06/04/23 Status: Ordered OxyCONTIN 20 mg oral tablet, extended release 20 mg, ER Tablet, By Mouth, 06/05/23 8:00:00 EST Start Date: 06/05/23 Stop Date: 06/05/23 Status: Completed OxyCONTIN 20 mg oral tablet, extended release 20 mg, 1, tablet, By Mouth, Every 12 hours, applied research director chacked fill 05/26/2023, # 56 tablet, Refills 0, Tot. Refills 0, Maintenance, 05/24/23 8:17:00 EST, Route to Pharmacy Electronically, [facility]/pharmacy #[id number], Partial fill upon patient request if the prescript... Start Date: 05/24/23 Stop Date: 06/21/23 Status: Ordered Problem List Condition Confirmation Course [...] Confirmed Active Tobacco use disorder Confirmed Active Underweight Confirmed Active Results Radiology Reports * Exam Date Time Procedure Performing Provider Status 06/05/23 5:41 AM Chest 2 Views Frontal and Lat Amrit , Meri; Auth (Verified) Notes: (Chest 2 Views Frontal and Lat) Reason For Exam: Postop RESULT: Chest 2 Views Frontal and Lat Chest 2 Views Frontal and Lat Reason: Postop; Clinical Question(s): Postop COMPARISON: Chest radiograph 06/04/2023 and 06/03/2023 per FINDINGS: LINES AND TUBES: None. LUNGS AND PLEURA: Surgical sutures in the inferomedial right lung, related to right lower lobe wedge resection. Mild associated volume loss of the right lung. Patchy opacity in the medial right lower lung is not significantly changed from the prior exams. No pulmonary vascular congestion. No pleural effusion. Previously demonstrated right apical pneumothorax is not clearly demonstrated on this study. HEART, MEDIASTINUM AND TRACY: Unchanged. BONES AND SOFT TISSUES: No acute abnormality. Partially visualized ACDF hardware in the lower cervical spine and posterior fusion hardware of L2-L3. Mild degenerative changes of thoracic spine. IMPRESSION: 1. Previously demonstrated right apical pneumothorax is not clearly demonstrated on this study. 2. Patchy opacity in the medial right lower lung is not significantly changed from the prior exams and most likely represents atelectasis. WSN: [id number] Ordering Physician: Cecelia Hinson Dictated By: Lorenzo Gonzalez MD Dictated Date/Time: 06/05/23 10:23 a Reviewed By: Lorenzo Gonzalez MD Signed By: Lorenzo Gonzalez MD Signed Date/Time: 06/05/23 10:23 am Transcribed By: FRAN Transcribed Date/Time: 06/05/23 10:17 am * Exam Date Time Procedure Performing Provider Status 06/04/23 10:09 AM Chest 2 Views Frontal and Lat Dale Rodgers; Auth (Verified) Notes: (Chest 2 Views Frontal and Lat) Reason For Exam: Tube Placement RESULT: Chest 2 Views Frontal and Lat Chest 2 Views Frontal and Lat Reason: Tube Placement; Clinical Question(s): Pneumothorax; Special Instructions: Please do CXR at 1000 COMPARISON: Multiple priors the most recent dated 06/04/2023 at 5:42 AM. FINDINGS: LINES AND TUBES: Apically directed large bore right thoracostomy tube in place unchanged. LUNGS AND PLEURA: There is persistent mild elevation of the right hemidiaphragm with minimal atelectasis medial rightlung base.. Normal pulmonary vascularity. No pleural effusion. The previously described very small right apical pneumothorax is no longer seen. HEART, MEDIASTINUM AND TRACY: Heart is normal in size. Normal mediastinal and hilar contour. BONES AND SOFT TISSUES: No acute abnormality. ACDF lower cervical spine. IMPRESSION: No significant right apical pneumothorax is seen. Stable appearance of the chest. WSN: [id number] Ordering Physician: Cecelia Hinson Dictated By: Everton Marc MD, V Dictated Date/Time: 06/04/23 2:16 pm Reviewed By: Everton Marc MD, V Signed By: Everton Marc MD, V Signed Date/Time: 06/04/23 2:16 pm Transcribed By: FRAN Transcribed Date/Time: 06/04/23 2:11 pm * Exam Date Time Procedure Performing Provider Status 06/04/23 12:40 PM Chest 2 Views Frontal and Lat Juan A Jordan; Auth (Verified) Notes: (Chest 2 Views Frontal and Lat) Reason For Exam: Postop RESULT: Chest 2 Views Frontal and Lat Chest 2 Views Frontal and Lat Reason: Postop; Clinical Question(s): Pneumothorax; post pull pneumothorax COMPARISON: Multiple prior chest radiographs with the most recent dated 06/04/2023 at 9:59 AM. FINDINGS: LINES AND TUBES: The large bore right apically directed pleural tube has been removed since prior examination. LUNGS AND PLEURA: Slightly hyperinflated lungs bilaterally probably related to emphysema. Minimal atelectasis right lung base medially. Persistent mild elevation of the right hemidiaphragm due to loss of volume.. Normal pulmonary vascularity. No pleural effusion. There may be trace right apical pneumothorax. HEART, MEDIASTINUM AND TRACY: Heart is normal in size. Normal mediastinal and hilar contour. BONES AND SOFT TISSUES: No acute abnormality. ACDF lower cervical spine. Partially visualized posterior fusion proximal lumbar spine. IMPRESSION: Apically directed right-sided large bore thoracostomy tube has been interval since the prior examination. There is a trace right apical pneumothorax appearing. Minimal medial right basilar atelectasis essentially unchanged. Probable bilateral emphysema. WSN: [id number] Ordering Physician: Sharon López Dictated By: Everton Marc MD, V Dictated Date/Time: 06/04/23 2:09 pm Reviewed By: Everton Marc MD, V Signed By: Everton Marc MD, V Signed Date/Time: 06/04/23 2:09 pm Transcribed By: FRAN Transcribed Date/Time: 06/04/23 2:04 pm * Exam Date Time Procedure Performing Provider Status 06/04/23 6:30 AM Chest 2 Views Frontal and Lat Esperanza Craven; oH (Verified) Notes: (Chest 2 Views Frontal and Lat) Reason For Exam: Postop RESULT: Chest 2 Views Frontal and Lat Chest 2 Views Frontal and Lat Reason: Postop; Clinical Question(s): Postop COMPARISON: 06/03/2023 FINDINGS: LINES AND TUBES: Right pleural tube remains, tip posterior medial upper right hemithorax at level of T4-T5. LUNGS AND PLEURA: Clear lungs. Normal pulmonary vascularity. No pleural effusion. Tiny right apex pneumothorax appearing, 3 mm. HEART, MEDIASTINUM AND TRACY: Heart is normal in size. Normal mediastinal and hilar contour. BONES AND SOFT TISSUES: No acute abnormality. Lower cervical fusion and lumbar fusion. IMPRESSION: Tiny right apex pneumothorax appearing, 3 mm in thickness. Right pleural tube remains, tip several centimeters more inferiorly. An actionable message (Red) has been communicated via the [employer] system on 06/04/2023 11:23 AM, Message ID [id number]. WSN: [id number] Ordering Physician: Arthur Alvarez Dictated By: Chinmay Craven MD Dictated Date/Time: 06/04/23 11:23 a Reviewed By: Chinmay Craven MD Signed By: Chinmay Craven MD Signed Date/Time: 06/04/23 11:23 am Transcribed By: FRAN Transcribed Date/Time: 06/04/23 11:23 am * Exam Date Time Procedure Performing Provider Status 06/03/23 11:05 AM Chest Portable Paola Ferrara [facility] (Verified) Notes: (Chest Portable) Reason For Exam: Postop RESULT: Chest Portable Chest Portable REASON: Postop; Clinical Question(s): Postop / Postop COMPARISON: 12/24/2018, PET/CT 05/10/2023. FINDINGS: LINES AND TUBES: Apically directed right chest tube. Multiple wires project over the patient. LUNGS AND PLEURA: Chain sutures in the right lower lung. Mild basilar atelectasis. No pleural effusion. No pneumothorax. HEART, MEDIASTINUM AND TRACY: Heart is normal in size. Normal mediastinal and hilar contour. BONES AND SOFT TISSUES: No acute abnormality. Partially visualized ACDF hardware. IMPRESSION: Postoperative change in the right lung with right chest tube in place. WSN: [id number] Ordering Physician: Arthur Alvarez Dictated By: Chinmay Mcintyre MD Dictated Date/Time: 06/03/23 12:59 p Reviewed By: Chinmay Mcintyre MD Signed By: Chinmay Mcintyre MD Signed Date/Time: 06/03/23 12:59 pm Transcribed By: FRAN Transcribed Date/Time: 06/03/23 12:57 pm Vital Signs Most recent to oldest [Reference Range]: 1 2 3 Height 170 cm (06/03/23 2:00 PM) 170 cm (06/03/23 6:08 AM) 170 cm (06/01/23 5:36 PM) Weight 51 kg (06/03/23 2:00 PM) 56 kg (06/03/23 6:08 AM) 56 kg (06/01/23 5:36 PM) Oxygen Saturation [94-100 %] 96 % (06/05/23 10:00 AM) 96 % (06/05/23 8:00 AM) 93 % *L* (06/05/23 6:00 AM) Pulse Rate [55-90 bpm] 71 bpm (06/05/23 6:45 AM) 55 bpm (06/05/23 4:00 AM) 52 bpm *L* (06/05/23 3:00 AM) Body Mass Index [18.5-24.99 kg/m2] 17.65 kg/m2 *L* (06/03/23 2:00 PM) 19.38 kg/m2 (06/03/23 6:08 AM) 19.38 kg/m2 (06/01/23 5:36 PM) Blood Pressure [90-138/55-84 mm Hg] 156/87mm Hg *H* (06/05/23 10:00 AM) 151/86mm Hg *H* (06/05/23 8:00 AM) 138/69mm Hg (06/05/23 6:45 AM) Respiratory Rate [16-30 br/min] 19 br/min (06/05/23 10:00 AM) 18 br/min (06/05/23 9:36 AM) 18 br/min (06/05/23 9:35 AM) Temperature [96.8-100.4 DegF] 98.2 DegF (06/05/23 10:00 AM) 98.0 DegF (06/05/23 6:00 AM) 98.0 DegF (06/05/23 2:00 AM) Liters per Minute 2 L/min (06/04/23 6:00 AM) 2 L/min (06/04/23 4:00 AM) 2 L/min (06/04/23 2:00 AM) Mode of Delivery (Oxygen) Room air (06/05/23 10:00 AM) Room air (06/05/23 8:00 AM) Room air (06/05/23 6:00 AM) Blood pressure sites Arm, right (06/05/23 10:00 AM) Arm, right (06/05/23 8:00 AM) Arm, right (06/05/23 6:00 AM) Temperature Route Oral (06/05/23 10:00 AM) Oral (06/05/23 6:00 AM) Oral (06/05/23 2:00 AM) Dry Weight 51 kg (06/03/23 2:00 PM) 51.4 kg (06/03/23 6:08 AM) 56 kg (06/01/23 5:36 PM) Dry Weight Obtained Via Standing scale (06/03/23 6:08 AM) Patient/family stated (06/01/23 5:36 PM) Social History Social History Type Response Tobacco Use: 4 or less cigar ettes(less than 1/4 pack)/day in last 30 days. Other: 2-3 cig/d x 40 years; was at 0.5 pp/d. Sex History and physical note * Event Display: History and Physical Hospital Authored Date: Cardiology * Event Display: Cardiac Rhythm Strips Authored Date: Hospital Progress note * Jerry Kenny RN: PERFORM, SIGN, VERIFY Event Display: Progress Note Hospital Authored Date: Patient: MIREYA ANDERSON Age: 68 years Sex: Male : 1955 Associated Diagnoses: None Author: Jerry Kenny RN Findings Problem Related to Alteration in Respiratory Function (new) : Alteration in Respiratory Function/new 06/04/2023 22:00 EST Alteration in Resp Status Related to Thoracic Surgery Goals & Outcomes, Respiratory Pt will maintain/resume baseline physical assessment, Pt will notdevelop complications r/t mechanical ventilation, Pt will maintain adequate nutritional intake, Pt will maintain/resume normal fluid/electrolyte balance, Pt will not develop complications r/t immobility, Pt will demonstrate proper technique w/self care procedures Interventions, Respiratory Assess for and report S&S of respiratory distress, Position for comfort & optimal oxygenation, Teach/encourage use of incentive spirometer Goals/Interventions, Respiratory Yes Respiratory, Problem Start 06/03/2023 18:00 Reviewed Plan with, Respiratory Patient Patient Progression, Respiratory Patient progressing according to plan . Evaluation Pt discharged home this am. vss. discharge plan discussed and signed. pt left floor via wheelchair with rn. see biophysical for further information. . * Augusta Tim RN: PERFORM, SIGN, VERIFY Event Display: Progress Note Hospital Authored Date: [id number] Patient: MIREYA ANDERSON Age: 68 years Sex: Male : 1955 Associated Diagnoses: None Author: Glenroy RN, Augusta Findings Problem Related to Alteration in Comfort 06/04/2023 22:00 EST Alteration in Comfort Related to Surgery Goals & Outcomes: Comfort Pt will report acceptable level of comfort & pain control, Pt will state importance of adhering to pain strategy regime, Pt will demonstrate necessary skills to manage pain, Non-verbal indicators will indicate comfort/pain control Interventions Implemented: Comfort Assess pain using appropriate pain scale/tools, Assess aggravating factors & prevent them accordingly, Assess alleviating factors & promote them accordingly Goals/Interventions, Comfort Yes Comfort, Problem Start 06/04/2023 7:00 Reviewed plan with, Comfort Patient Patient Progression, Comfort Pt progressing according to plan Comfort, Problem Ongoing Yes . Alteration in Respiratory Function (new) : Alteration in Respiratory Function/new 06/04/2023 22:00 EST Alteration in Resp Status Related to Thoracic Surgery Goals & Outcomes, Respiratory Pt will maintain/resume baseline physical assessment, Pt will notdevelop complications r/t mechanical ventilation, Pt will maintain adequate nutritional intake, Pt will maintain/resume normal fluid/electrolyte balance, Pt will not develop complications r/t immobility, Pt will demonstrate proper technique w/self care procedures Interventions, Respiratory Assess for and report S&S of respiratory distress, Position for comfort & optimal oxygenation, Teach/encourage use of incentive spirometer Goals/Interventions, Respiratory Yes Respiratory, Problem Start 06/03/2023 18:00 Reviewed Plan with, Respiratory Patient Patient Progression, Respiratory Patient progressing according to plan . Nursing Data Cardiac Data. : Cardiac Data. 06/04/2023 21:00 EST Nail Bed Color, Fingers [place] Nail Bed Color, Toes [place] Skin Temperature Upper Extremities Warm Skin Temperature Lower Extremities Warm Heart Rhythm Regular Cardiac Rhythm Normal sinus rhythm Dorsalis Pedis Pulse, Left Normal Dorsalis Pedis Pulse, Right Normal awake overnight monitor Yes Cardiovascular WNL except . Respiratory/Pulmonary Data. : Respiratory/Pulmonary Data. 06/04/2023 21:00 EST Respiratory Symptoms None Respiratory effort Unlabored Chest expansion Symmetrical Accessory Muscles use No Patient participation Cooperative Incentive Spirometry Predicted Volume 2,500 mL Incentive Spirometry Volume Achieved 1,000 mL Respiratory Breath Hold Yes Cough No cough Respiratory pattern Regular Left Upper Lobe Breath Sounds Diminished Right Upper Lobe Breath Sounds Diminished Right Middle Lobe Breath Sounds Diminished Left Lower Lobe Breath Sounds Diminished Right Lower Lobe Breath Sounds Diminished Respiratory distress None Respiratory Treatment(s) Cough and deep breathe, Incentive spirometry Respiratory WNL except . Narrative/Incidental Patient remains in [facility], tele: NSR. Alert and oriented x4. Lung sounds clear/dim, spo2 high 90's at room air, Reinforced proper use of IS, pulls up to 1000. Right chest tube site dressing CDI, 4 incisions with surgiglue intact. Pain 8/10 and given scheduled pain meds and PRN po DIlaudid with good effect. Abdome soft, nontender, +BS. Voids in urinal with clear yellow urine. No LE edema, +PP. Wearing SCD. Given Klonopin for anxiety with good effect. Call dong within reach.. * Yazmin Schafer RN: VERIFY, PERFORM, SIGN Event Display: Progress Note Hospital Authored Date: Patient: MIREYA ANDERSON Age: 68 years Sex: Male : 1955 Associated Diagnoses: None Author: Yazmin Schafer RN Findings Problem Related to Alteration in Comfort : Alteration in Comfort/new 06/04/2023 18:00 EST Alteration in Comfort Related to Surgery Goals & Outcomes: Comfort Pt will report acceptable level of comfort & pain control, Pt will state importance of adhering to pain strategy regime, Pt will demonstrate necessary skills to manage pain, Non-verbal indicators will indicate comfort/pain control Interventions Implemented: Comfort Assess pain using appropriate pain scale/tools, Assess aggravating factors & prevent them accordingly, Assess alleviating factors & promote them accordingly BH Goals/Interventions, Comfort Yes Comfort, Problem Start 06/04/2023 7:00 Reviewed plan with, Comfort Patient Patient Progression, Comfort Pt progressing according to plan Comfort, Problem Ongoing Yes Comment: Comfort EVAL: 1-10 pain scale used; scheduled and PRN meds given as ordered; rest and repositioning for optimal comfort . Alteration in Respiratory Function (new) : Alteration in Respiratory Function/new 06/04/2023 18:00 EST Alteration in Resp Status Related to Thoracic Surgery Goals & Outcomes, Respiratory Pt will maintain/resume baseline physical assessment, Pt will notdevelop complications r/t mechanical ventilation, Pt will maintain adequate nutritional intake, Pt will maintain/resume normal fluid/electrolyte balance, Pt will not develop complications r/t immobility, Pt will demonstrate proper technique w/self care procedures Interventions, Respiratory Assess for and report S&S of respiratory distress, Chest tube drainage, maintain drainage/suction as ordered BH Goals/Interventions, Respiratory Yes Respiratory, Problem Start 06/03/2023 18:00 Reviewed Plan with, Respiratory Patient Patient Progression, Respiratory Patient progressing according to plan Comment: Respiratory Status EVAL: no signs of respiratory distress noted; chest tube removed by MD and post chest XR completed . Note * Jerry Kenny RN: PERFORM Event Display: Discharge/Transfer Note Hospital Authored Date: [id number] Nursing Discharge Note Entered On: 06/05/2023 11:41 EST Performed On: 06/05/2023 11:38 EST by Jerry Kenny RN Nursing Discharge Note 2 Discharge Time : 06/05/2023 11:39 EST Discharge Level of Care at Discharge : Home/Intermediate/Foster Care Patient Left Unit Via : Wheelchair Patient Accompanied Off Unit with : Responsible adult DC Instructions Provided & Signed by Pt : Yes Patient Understands D/C Instructions : Yes Patient Instructions Discharge Signed : Yes Did Pt have Specialty Bed or Wound Vac : No Electronic Copy: DC Instructions : Sent/Given to Patient Jerry Kenny RN - 06/05/2023 11:38 EST * Arthur Alvarez MD: MODIFY Kim ELDER, Arthur: MODIFY, PERFORM Kim ELDER, Arthur: PERFORM, SIGN Kim ELDER, Arthur: SIGN, VERIFY Arthur Alvarez MD: VERIFY Event Display: Discharge/Transfer Note Hospital Authored Date: [id number] Patient: MIREYA ANDERSON Age: 68 years Sex: Male : 1955 Associated Diagnoses: None Author: Arthur Alvarez MD Discharge Information Admission Date: 06/03/2023 Discharge Date 06/05/2023 Principal Discharge Diagnosis Pulmonary nodule: Present on admission - yes. Medications MEDICATION LIST (Selected) Prescriptions Prescribed Albuterol (Eqv-ProAir HFA) 90 mcg/inh inhalation aerosol: 1 puffs, Inhalation, 4 times a day, PRN NEEDED FOR COUGH, # 8.5 each, 5 Refills, Maintenance, 05/18/23 13:33:00 EDT, [id number], 25, INHALE 1 PUFF 4 TIMES A DAY NEEDED FOR COUGH, 170, cm, 05/05/23 12:54:00 EDT, Height, 50, kg, 11/15/21 11:2... Ensure: Ensure, See Instructions, # 90 each, Refills 5, Tot. Refills 5, Maintenance, 3 cans daily to maintain weight. Equal numbers chocolate and strawberry. Dx achalasia, 05/12/23 16:16:00 EDT, Supply Home Blood Pressure Monitor: See Instructions, # 1 each, Maintenance, Use to check blood pressure at home., 03/06/21 11:40:00 EDT, Supply MiraLax oral powder for reconstitution: = 17 Gm, By Mouth, Daily, for 7 days, # 119 Gm, 0 Refills, Acute 06/11/23 13:40:00 EST, 06/04/23 13:40:00 EST, REC Powder, [facility], Partial fill upon patient request if the prescription is for a schedule II opioid drug., 17 Gm By Mout... OxyCONTIN 20 mg oral tablet, extended release: 20 mg, 1, tablet, By Mouth, Every 12 hours, applied research director chacked fill 05/26/2023, # 56 tablet, Refills 0, Tot. Refills 0, Maintenance, 05/24/23 8:17:00 EST, Routeto Pharmacy Electronically, [facility]/pharmacy #[id number], Partial fill upon patient request if the prescript... acetaminophen 325 mg oral tablet: 975 mg, 3, tablet, By Mouth, Every 8 hours, for 7 days, # 63 tablet, Refills 0, Tot. Refills 0, Acute 06/11/23 13:39:00 EST, 06/04/23 13:39:00 EST, Route to PharmacyElectronically, [facility], Partial fill upon patient request if the pr... celecoxib 200 mg oral capsule: 1 capsule = 200 mg, By Mouth, 2 times a day, # 14 capsule, 0 Refills, Maintenance, 06/04/23 13:40:00 EST, Capsule, [facility] 3, Partial fill upon patient request if the prescription is for a schedule II opioid drug., 170, cm, 06/03/23 14:... cholecalciferol 50,000 intl units oral capsule: 1 capsule = 50,000 International_Units, By Mouth, Every 7 days, # 13 capsule, 3 Refills, Maintenance, 02/08/23 9:24:00 EDT, Capsule, [facility]/pharmacy #[id number], Partial fill upon patient request, 170, cm, 02/06/23 9:02:00 EDT, Height, 50, kg, 11/15/21 11:23:0... gabapentin 300 mg oral capsule: 300 mg, 1, capsule, By Mouth, 3 times a day, # 63 capsule, Refills 0, Tot. Refills 0, Maintenance, 06/04/23 13:40:00 EST, [facility], Partial fill upon patient request if the prescription is for a schedu... ipratropium nasal 21 mcg/inh spray: See Instructions, INSTILL 2 SPRAYS INTO EACH NOSTRIL 3 TIMES A DAY NEEDED FOR CONGESTION, # 60 Unknown, 5 Refills, Maintenance, 12/11/22 19:25:00 EDT, [facility] [id number], 90, INSTILL 2 SPRAYS INTO EACH NOSTRIL 3 TIMES A DAY NEEDED FOR CONGESTION, 1... metoprolol 25 mg oral tablet: 12.5 mg, 0.5, tablet, By Mouth, Every 12 hours, # 30 tablet, Refills 0, Tot. Refills 0, Maintenance, 06/04/23 13:43:00 EST, Route to Pharmacy Electronically, [facility] 3, Partial fill upon patient request if the prescription is for a sche... Documented Medications Documented Clonazepam: = 1 mg, By Mouth, 3 times a day, PRN Anxiety, 0 Refills, Maintenance, 05/20/21 11:33:00EDT, Partial fill upon patient request if the prescription is for a schedule II opioid drug. Nicoderm C-Q 7 mg/24 hr transdermal film, extended release: 1 patch, Topically, Daily, # 30 patch, 0 Refills, Maintenance, 05/26/23 10:00:00 EST, Patch, Partial fill upon patient request if the prescription is for a schedule II opioid drug. oxyCODONE 5 mg oral tablet: 10 mg, 2, tablet, By Mouth, Every 6 hours, PRN, Refills 0, Tot. Refills0, Maintenance, as needed for pain, 06/04/23 14:05:00 EST, Partial fill upon patient request if theprescription is for a schedule II opioid drug.. Aware of diagnosis: patient, family. Procedures PREOPERATIVE DIAGNOSIS: Right lower lobe lung nodule POSTOPERATIVE DIAGNOSIS: Right lower lobe non-small cell lung cancer PROCEDURE: 1. Diagnostic bronchoscopy 2. Robotic assisted right lower lobe wedge resection x2 3. Robotic assisted right mediastinal lymphadenectomy 4. Transcutaneous intercostal nerve blocks of rib spaces 5 through 10 SURGEON: Tha Ga DO . Discharge condition: good Code status: Full Hospital Course Hospital course Ms. Anderson is a 68yo man with a PMH including HTN, anxiety, and chronic back pain who is enrolled in the lung cancer screening program and was found to have and enlarging posterior right lower lobe lung nodule on his most recent scan. He is now s/p Robotic Assisted Right Lowe Lobe Wedge Resection with Dr Ga. The chest tube remained in place to -20 suction until POD #1 when the tube was placed to water seal. A water seal CXR was stable with a tiny apical pneumothorax. There was no air leak on water seal and the drainage remained low. The tube was then removed without difficulty. A post removal CXR was stable with a tiny apical pneumothorax. Upon discharge, he was tolerating a regular diet, ambulating independently, voiding without difficulty, and pain was controlled with oral pain medication. At the time of discharge, he was alert and oriented x3. HERNANDEZ. Head normocephalic, atraumatic. Neck supple, no lymphadenopathy. Lungs CTA. RRR, noM/G/R. Abdomen soft, NT/ND. +BS. Good CMS. No peripheral edema. Chest tube site dressing intact without staining. He was discharged with new prescriptions for Tylenol, Celebrex, Gabapentin, Metoprolol, and Miralax. He filled a prescription for Oxycodone just prior to admission and was not given any new short acting narcotic medication at the time of discharge. He should only take the medication on the list provided at the time of discharge. Significant Results Results: Laboratory : LABORATORY 06/05/2023 1:40 EST WBC 6.6 k/mm3 RBC 3.38 m/mm3 L Hgb 10.7 Gm/dL L Hct 33.0 % L MCV 97.6 femtoliters H MCH 31.7 pg MCHC 32.4 g/dL L Platelet Count 198 k/mm3 RDW-SD 44.9 femtoliters MPV 10.1 femtoliters Nucleated RBC (Automated) 0.0 #/100 WBC'S Abs. NRBC 0.0 k/mm3 Abs. Neut 4.3 k/mm3 Abs. Lymph 1.4 k/mm3 Abs. Levy 0.6 k/mm3 Abs. Eo 0.3 k/mm3 Abs. Baso 0.1 k/mm3 Neut % 64.9 % Lymph % 20.7 % Levy % 9.0 % Eos % 4.1 % Baso % 0.8 % Imm Gran 0.5 % Abs. Imm Gran 0.0 k/mm3 Sodium 142 mmol/L Potassium 4.7 mmol/L Chloride 107 mmol/L Bicarbonate Level 27 mmol/L Anion Gap 8 BUN 13 mg/dL Creatinine-Blood 0.7 mg/dL Estimated GFR Creatinine 100 ML/MIN/1.73 M2 Calcium, Ionized pH Corrected 1.22 mmol/L Phosphorus 3.5 mg/dL Magnesium 1.8 mg/dL , Imaging : RADIOLOGY 06/05/2023 5:41 EST Chest 2 Views Frontal and Lat Chest 2 Views Frontal and Lat (In Progress) . CXR (06/05): Well expanded R lung with no evidence of pneumothorax. No evidence or persistent effusion. Discharge Plan Diet/Activity/Patient Education/Follow Up Follow Up with: Rhonda Ga 06/23/2023 10:30 AM Please have a chest xray in the [facility] Radiology Department 3rd floor at 9:30AM then follow up with Dr Ga in the Medical Office Building [address] at 10:30AM.. Discharge Disposition Discharge: home. Therapies Wound care: Leave chest tube dressing in place for 48 hours. Once removed, keep area clean and dry.May wash with warm water and mild soap. May cover with a bandaid for comfort. A small amount of drainage is normal. Call for increased amount of drainage from chest tube site.. Prescription Given this visit:Prescriptions Acetaminophen (acetaminophen 325 mg oral tablet) 3 tablet = 975 mg, By Mouth, Every 8 hours, # 63 tablet, 0 Refills, [facility], [address] [place] [address] [phone] Next Dose: Celecoxib (celecoxib 200 mg oral capsule) 1 capsule = 200 mg, By Mouth, 2 times a day, # 14 capsule, 0 Refills, [facility] [address] [address] [phone] Next Dose: Gabapentin (gabapentin 300 mg oral capsule) 1 capsule = 300 mg, By Mouth, 3 times a day, # 63 capsule, 0 Refills, [facility] [address] [address] [phone] Next Dose: Metoprolol (metoprolol 25 mg oral tablet) 0.5 tablet = 12.5 mg, By Mouth, Every 12 hours, # 30 tablet, 0 Refills, [address] [address] [phone] Next Dose: Polyethylene Glycol 3350 (MiraLax oral powder for reconstitution) 17 Gm, By Mouth, Daily, # 119 Gm, 0 Refills, [address] [address] [phone] Next Dose: Patient Instructions Given:No qualifying data available Education Given:Thoracic Post Surgical Exercise Program Thoracic Post Thoracoscopy Patient Follow-up:Added Follow Up Time Frame Comments Tha Ga 06/23/2023 10:30 Please have a chest xray in the [facility] Radiology Department 3rd floor at 9:30AM then follow up with Dr Ga in the Medical Office Building [address] at 10:30AM. Rhonda Kenny RN, Jerry Long: PERFORM Event Display: Patient Education/Instruction Authored Date: [id number] Inpatient Adult Discharge Instructions [address] [address] Name: MIREYA WINSTONSATINDER : 1955 Visit: 06/03/2023 05:33:00 Current Date: 06/05/2023 09:53 Account: [id number] Inpatient Adult Discharge Instructions We would like to thank you for allowing us to assist you with your healthcare needs. The following includes patient education materials and information regarding your injury/illness. Our entire staffstrives to provide an excellent experience for our patients and their families. PLEASE ENSURE YOU FOLLOW-UP PER THE INSTRUCTIONS BELOW! ?? YOUR OPINION IS IMPORTANT TO US! Please complete the survey you may receive by mail or email. Your feedback will be used to make improvements to the healthcare experiences of our patients and their families. Surveys are administered by [employer] ?? If further treatment with your primary care physician or another doctor is recommended, it is important for you to keep the appointment. Call your primary care physician or return to the Emergency Department immediately if your condition worsens, fails to improve, or new symptoms develop. If you need to find a doctor, you can call [facility] [employer] Link for a referral at [phone] or toll free at [phone]) or log in to [email or web address].. ?? [facility], in keeping with [facility] guidance, no longer requires face masks for staff, patientsor visitors in most situations. Similiar to time spent indoors at other locations, there is the chance that you were exposed to repiratory viruses during your time with us (such as flu or COVID-19). If you develop symptoms concerning for a viral respiratory infection, please seek testing (and treatment if indicated) from your medical provider or home test kit. ?? You can view and manage your care through the patient portal or by using a health care christopher of your choosing. [employer] is a website that allows you to securely view your medical information including your hospital discharge summary, office visit summaries, medications and follow-up visits. You can also request appointments, renew medications, and request access to your medical information using a health care christopher of your choosing, or just ask a question. You can enroll at [email or web address] or register during your next office visit. You have been discharged from [facility], Patient Care Unit: SW5. If you have any questions regarding these instructions after you leave, please call us and we will be happy to assist you. [facility] Your Care Team Attending Physician Tha Ga DO Consulting Providers Juanita Maurer MD; Romi Ratliff MD Discharging Providers Arthur Alvarez MD Reason for Admission LUNG NODULE RIGHT ROBITICTHORACOSC MLD MADELYN Your Diagnosis Pulmonary nodule Lung nodule Degenerative joint disease (DJD) of lumbar spine Tests Performed Below is a partial list of the tests performed during your hospitalization. You may have had other tests and procedures not included in this list. Please discuss all test results with your provider. BUN Calcium Ionized CBC CBC w/ Differential Creatinine GLUCOSE POC Lytes Magnesium Level Phosphorus Level CXR XR Chest 2 Views Frontal and Lat XR Chest Portable * Primary Care Provider Rhonda Escobedo NP Advance Directive Health Care Proxy on File Yes - Health Care Proxy Discharge Vitals Temperature: 98 DegF Height: 170 cm Pulse Rate: 71 bpm Weight: 51 kg Respiratory Rate: 18 br/min Body Mass Index:??17.65 kg/m2??Low Systolic Blood Pressure:??151 mm Hg??High Body surface area: 1.55 Diastolic Blood Pressure:??86 mm Hg??High ?? Oxygen Saturation: 96 % ?? Studies Pending All tests and labs ordered during this hospital stay have been completed unless listed below. Please discuss all pending results with your provider listed above in these instructions. ?? BUN CBC w/ Differential COVID-19 (2019 Novel Coronavirus) PCR Creatinine Electrolytes (Lytes) Ionized Calcium (Calcium Ionized) Magnesium Level Pathology Tissue Request () Phosphorus Level Chest 2 Views Frontal and Lat (XR Chest 2 Views Frontal and Lat) What to do next Instructions From Your Doctor Discharge Orders Scheduled Follow-Up Appointments Thursday 10:30 AM EST ?? With: Tha Ga DO Where: [facility] [address] [place] [address]- Status: Pending You Need to Schedule the Following Appointments Follow Up with??Tha Ga When:??06/23/2023 10:30 AM EST Why: Please have a chest xray in the [facility] Radiology Department 3rd floor at 9:30AM then follow up with Dr Ga in the Medical Office Building [address] at 10:30AM. Where: [address] [place] [address] [place] [address]- Business (1) Follow Up with??Rhonda Escobedo When:??In 0 days Discharge Medications MIREYA ANDERSON :1955 Visit Date:06/03/2023 Medications: Please continue your medications until treatment is completed or stopped by your provider. Medications not listed below should be discontinued. Discuss any questions related to medications with your provider. What How Much When Why Instructions Next Dose New Acetaminophen (acetaminophen 325 mg oral tablet) 3 tab(s) Oral Every 8 hours Duration: 7 Days Pickup at [facility] 3 2pm New Celecoxib (celecoxib 200 mg oral capsule) 1 capsule Oral Twice a day Duration: 7 Days Pickup at [facility] 3 9pm New Gabapentin (gabapentin 300 mg oral capsule) 1 capsule Oral 3 times a day Duration: 21 Days Pickup at [place] [address] 3pm New Metoprolol (metoprolol 25 mg oral tablet) 0.5 tab(s) Oral Every 12 hours Duration: 30 Days Pickup at [place] [address] 6pm New Polyethylene Glycol 3350 (MiraLax oral powder for reconstitution) 17 gram Oral Daily Duration: 7 Days Pickup at [place] [address] 9pm Changed Oxycodone (oxyCODONE 5 mg oral tablet) 2 tab(s) Oral Every 6 hours as needed for as needed for pain as needed Changed Oxycodone (OxyCONTIN 20 mg oral tablet, extended release) 1 tab(s) Oral Every 12 hours Degenerative joint disease (DJD) of lumbar spine Duration: 28 Days 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 8pm Unchanged Albuterol (Albuterol (Eqv-ProAir HFA) 90 mcg/ inh inhalation aerosol) 1 puff(s) Inhalation 4 times a day as needed for NEEDED FOR COUGH as needed Unchanged Cholecalciferol (cholecalciferol 50,000 intl units oral capsule) 1 capsule Oral Every 7 days Duration: 90 Days Unchanged Clonazepam 1 Milligram Oral 3 times a day as needed for Anxiety 5pm Unchanged Durable Medical Equipment (Home Blood Pressure Monitor) See instructions Use to check blood pressure at home. ?? Unchanged Ipratropium Nasal (ipratropium nasal 21 mcg/ inh spray) See instructions INSTILL 2 SPRAYS INTO EACH NOSTRIL 3 TIMES A DAY NEEDED FOR CONGESTION ?? Unchanged Miscellaneous Rx (Ensure) See instructions 3 cans daily to maintain weight. Equal numbers chocolate and strawberry. Dx achalasia ?? Unchanged Nicotine (Nicoderm C-Q 7 mg/ 24 hr transdermal film, extended release) 1 patch(es) Topically Daily Pharmacy Information [facility] 3: [address], [place] [id number] [phone] ?? What How Much When Comments Stop Taking Amlodipine (amLODIPine 5 mg oral tablet) 1 tab(s) Oral Daily Stop Taking Lisinopril (lisinopril 10 mg oral tablet) 1 tab(s) Oral Daily Test Results Below is a partial list of the most recent Laboratory test results done prior to this discharge. You may have had other tests and procedures not included in this list. Please discuss all test resultswith your provider. Est Creatinine Clearance - 74.88 mL/min (06/04/2023) BUN (06/05/2023) ???BUN - 13 mg/dL Calcium Ionized (06/05/2023) ???Calcium, Ionized pH Corrected - 1.22 mmol/L CBC (06/03/2023) ???WBC - 14.4 k/mm3???RBC - 3.86 m/mm3???Hgb - 12.1 Gm/dL???Hct - 37.2 %???MCV - 96.4 femtoliters???MCH - 31.3 pg???MCHC - 32.5 g/dL???Platelet Count - 212 k/mm3???RDW-SD - 43.4 femtoliters???MPV - 9.6 femtoliters???Nucleated RBC (Automated) - 0.0 #/100 WBC'S???Abs. NRBC - 0.0 k/mm3 CBC w/ Differential (06/05/2023) ???WBC - 6.6 k/mm3???RBC - 3.38 m/mm3???Hgb - 10.7 Gm/dL???Hct - 33.0 %???MCV - 97.6 femtoliters???MCH - 31.7 pg???MCHC - 32.4 g/dL???Platelet Count - 198 k/mm3???RDW-SD - 44.9 femtoliters???MPV - 10.1 femtoliters???Nucleated RBC (Automated) - 0.0 #/100 WBC'S???Abs. NRBC - 0.0 k/mm3???Abs. Neut - 4.3 k/mm3???Abs. Lymph - 1.4 k/mm3???Abs. Levy - 0.6 k/mm3???Abs. Eo - 0.3 k/mm3???Abs. Baso - 0.1 k/mm3???Neut % - 64.9 %???Lymph % - 20.7 %???Levy % - 9.0 %???Eos % - 4.1 %???Baso % - 0.8 %???Imm Gran - 0.5 %???Abs. Imm Gran - 0.0 k/mm3 Creatinine (06/05/2023) ???Creatinine-Blood - 0.7 mg/dL???Estimated GFR Creatinine - 100 ML/MIN/1.73 M2 GLUCOSE POC (06/03/2023) ???Glucose, POC - 180 mg/dL Lytes (06/05/2023) ???Sodium - 142 mmol/L???Potassium - 4.7 mmol/L???Chloride - 107 mmol/L???Bicarbonate Level - 27 mmol/L???Anion Gap - 8 Magnesium Level (06/05/2023) ???Magnesium - 1.8 mg/dL Phosphorus Level (06/05/2023) ???Phosphorus - 3.5 mg/dL Allergies (NKA means No Known Allergies) morphine??(combative, CONFUSED OUT OF IT) Problems Active Problems??(26) Achalasia?? anxiety?? Anxiety?? asthma?? Bronchitis?? Bursitis, Right Shoulder?? Chronic back pain?? Chronic neck pain?? COPD (chronic obstructive pulmonary disease)?? depression?? H/O Cervical Fusion?? H/O Childhood Seizures?? H/O L5-S1 fusion?? Hemorrhoids?? Hypertension?? Low serum cortisol level?? lumbar degeneration?? Lumbar disc herniation with radiculopathy?? Medial epicondylitis, right elbow?? Multiple lung nodules?? OA?? Opioid use disorder, severe, in sustained remission?? Polyarthralgia?? Tobacco abuse?? Tobacco use disorder?? Underweight?? Education Materials Below is the list of Educational Leaflet Providered with your Discharge Instructions. Thoracic Post Surgical Exercise Program?? Thoracic Post Thoracoscopy?? Valuables and Belongings I fully understand and agree that [facility] accepts no responsibility for all my personal property including clothing, toilet articles, radios, jewelry, dentures, hearing aids, rings, money, or any other property that is in my possession or is brought to me after admission. I understand certain valuables may be placed in a hospital safe for a short period of time. I understand that the hospital is not liable for loss or damage due to accident, fire, or other natural occurrence while said property is in the safe. I accept full responsibility for any personal property that I keep with me, and will not hold the hospital responsible in case of loss or disappearance. I acknowledge that i have been encouraged to send valuables and belongings home. ?? Review of Valuable and Belonging List: With patient Date for Pt to Sign Valuables/Belongings: 06/03/23 21:45:00 ?? Other Discharge Information ? Pulmonary Rehab Status?? Pulmonary Rehab Discharge Status?? Respiratory Rate: 18 br/min ? Common Emergency Awareness Tips IS IT A STROKE? Act FAST and Check for these signs: FACE Does the face look uneven? ARM Does one arm drift down? SPEECH Does their speech sound strange? TIME Call at any sign of stroke ?? Heart Attack Signs Chest discomfort: Most heart attacks involve discomfort in the center of the chest and lasts more than a few minutes, or goes away and comes back. It can feel like uncomfortable pressure, squeezing, fullness or pain. Discomfort in upper body: Symptoms can include pain or discomfort in one or both arms, back, neck, jaw or stomach. Shortness of breath: With or without discomfort. Other signs: Breaking out in a cold sweat, nausea, or lightheaded. Remember, MINUTES DO MATTER. If you experience any of these heart attack warning signs, call to get immediate medical attention! ?? Smoking can increase your chances of developing chronic health problems and can cause harmful effects to other family members in your house. If you smoke, you are strongly encouraged to quit. Please call [employer] at [phone] or [phone] ([phone]) or log in to [email or web address] for referrals to smoking cessation programs. ?? 401 Suicide & Crisis Lifeline is available 09/02 if you or someone you know needs to find a reason to keep living. By calling 988 you'll be connected to a skilled, trained counselor at a crisis center in your area. INPATIENT DISCHARGE INSTRUCTIONS SIGNATURE PAGE MIREYA ANDERSON Location:[facility] Registration Date and Time:06/03/2023 05:33 EST Primary Care Physician: Rhonda Escobedo NP, Attending Physician: Tha Ga DO, I MIREYA ANDERSON, have received the above patient education materials/instructions and have verbalized understanding. If ambulance or transport services are being used I further acknowledge being given a choice of service. ?? If you need to contact me, please call me at this number: . Patient/Joist Setter Name: Patient/Joist Setter Signature: Relationship to Patient: Witness Name/Signature: Date: * Jerry Kenny RN: PERFORM Event Display: Patient Education/Instruction Authored Date: [id number] Inpatient Adult Discharge Instructions [address] [address] Name: MIREYA ANDERSON : 1955 Visit: 06/03/2023 05:33:00 Current Date: 06/05/2023 09:51 Account: [id number] Inpatient Adult Discharge Instructions We would like to thank you for allowing us to assist you with your healthcare needs. The following includes patient education materials and information regarding your injury/illness. Our entire staffstrives to provide an excellent experience for our patients and their families. PLEASE ENSURE YOU FOLLOW-UP PER THE INSTRUCTIONS BELOW! ?? YOUR OPINION IS IMPORTANT TO US! Please complete the survey you may receive by mail or email. Your feedback will be used to make improvements to the healthcare experiences of our patients and their families. Surveys are administered by [employer] ?? If further treatment with your primary care physician or another doctor is recommended, it is important for you to keep the appointment. Call your primary care physician or return to the Emergency Department immediately if your condition worsens, fails to improve, or new symptoms develop. If you need to find a doctor, you can call [facility] [employer] Link for a referral at [phone] or toll free at [phone]) or log in to [email or web address].. ?? [facility], in keeping with [facility] guidance, no longer requires face masks for staff, patientsor visitors in most situations. Similiar to time spent indoors at other locations, there is the chance that you were exposed to repiratory viruses during your time with us (such as flu or COVID-19). If you develop symptoms concerning for a viral respiratory infection, please seek testing (and treatment if indicated) from your medical provider or home test kit. ?? You can view and manage your care through the patient portal or by using a health care christopher of your choosing. [employer] is a website that allows you to securely view your medical information including your hospital discharge summary, office visit summaries, medications and follow-up visits. You can also request appointments, renew medications, and request access to your medical information using a health care christopher of your choosing, or just ask a question. You can enroll at [email or web address] or register during your next office visit. You have been discharged from [facility], Patient Care Unit: SW5. If you have any questions regarding these instructions after you leave, please call us and we will be happy to assist you. [facility] Your Care Team Attending Physician Tha Ga DO Consulting Providers Erasto ELDER, Juanita; Romi Ratliff MD Discharging Providers Kim ELDER, Arthur Reason for Admission LUNG NODULE RIGHT ROBITICTHORACOSC MLD MADELYN Your Diagnosis Pulmonary nodule Lung nodule Degenerative joint disease (DJD) of lumbar spine Tests Performed Below is a partial list of the tests performed during your hospitalization. You may have had other tests and procedures not included in this list. Please discuss all test results with your provider. BUN Calcium Ionized CBC CBC w/ Differential Creatinine GLUCOSE POC Lytes Magnesium Level Phosphorus Level CXR XR Chest 2 Views Frontal and Lat XR Chest Portable * Primary Care Provider Rhonda Escobedo NP Advance Directive Health Care Proxy on File Yes - Health Care Proxy Discharge Vitals Temperature: 98 DegF Height: 170 cm Pulse Rate: 71 bpm Weight: 51 kg Respiratory Rate: 18 br/min Body Mass Index:??17.65 kg/m2??Low Systolic Blood Pressure:??151 mm Hg??High Body surface area: 1.55 Diastolic Blood Pressure:??86 mm Hg??High ?? Oxygen Saturation: 96 % ?? Studies Pending All tests and labs ordered during this hospital stay have been completed unless listed below. Please discuss all pending results with your provider listed above in these instructions. ?? BUN CBC w/ Differential COVID-19 (2019 Novel Coronavirus) PCR Creatinine Electrolytes (Lytes) Ionized Calcium (Calcium Ionized) Magnesium Level Pathology Tissue Request () Phosphorus Level Chest 2 Views Frontal and Lat (XR Chest 2 Views Frontal and Lat) What to do next Instructions From Your Doctor Discharge Orders Scheduled Follow-Up Appointments Thursday 10:30 AM EST ?? With: Tha Ga DO Where: [facility] Thoracic Surgery [address] [place] [address] Drive [address] [place] [address]- Status: Pending You Need to Schedule the Following Appointments Follow Up with??Tha Ga When:??06/23/2023 10:30 AM EST Why: Please have a chest xray in the [facility] Radiology Department 3rd floor at 9:30AM then follow up with Dr Ga in the Medical Office Building [address] at 10:30AM. Where: [address] [facility] [place] [address] Follow Up with??Rhonda Escobedo When:??In 0 days Discharge Medications MIREYA ANDERSON :1955 Visit Date:06/03/2023 Medications: Please continue your medications until treatment is completed or stopped by your provider. Medications not listed below should be discontinued. Discuss any questions related to medications with your provider. What How Much When Why Instructions Next Dose New Acetaminophen (acetaminophen 325 mg oral tablet) 3 tab(s) Oral Every 8 hours Duration: 7 Days Pickup at [place] [address] New Celecoxib (celecoxib 200 mg oral capsule) 1 capsule Oral Twice a day Duration: 7 Days Pickup at [place] [address] New Gabapentin (gabapentin 300 mg oral capsule) 1 capsule Oral 3 times a day Duration: 21 Days Pickup at [place] [address] New Metoprolol (metoprolol 25 mg oral tablet) 0.5 tab(s) Oral Every 12 hours Duration: 30 Days Pickup at [place] [address] New Polyethylene Glycol 3350 (MiraLax oral powder for reconstitution) 17 gram Oral Daily Duration: 7 Days Pickup at [facility] 3 Changed Oxycodone (oxyCODONE 5 mg oral tablet) 2 tab(s) Oral Every 6 hours as needed for as needed for pain Changed Oxycodone (OxyCONTIN 20 mg oral tablet, extended release) 1 tab(s) Oral Every 12 hours Degenerative joint disease (DJD) of lumbar spine Duration: 28 Days 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 Unchanged Albuterol (Albuterol (Eqv-ProAir HFA) 90 mcg/ inh inhalation aerosol) 1 puff(s) Inhalation 4 times a day as needed for NEEDED FOR COUGH Unchanged Cholecalciferol (cholecalciferol 50,000 intl units oral capsule) 1 capsule Oral Every 7 days Duration: 90 Days Unchanged Clonazepam 1 Milligram Oral 3 times a day as needed for Anxiety Unchanged Durable Medical Equipment (Home Blood Pressure Monitor) See instructions Use to check blood pressure at home. ?? Unchanged Ipratropium Nasal (ipratropium nasal 21 mcg/ inh spray) See instructions INSTILL 2 SPRAYS INTO EACH NOSTRIL 3 TIMES A DAY NEEDED FOR CONGESTION ?? Unchanged Miscellaneous Rx (Ensure) See instructions 3 cans daily to maintain weight. Equal numbers chocolate and strawberry. Dx achalasia ?? Unchanged Nicotine (Nicoderm C-Q 7 mg/ 24 hr transdermal film, extended release) 1 patch(es) Topically Daily [facility] Information [facility] [address] [place], [place] [id number] [phone] ?? What How Much When Comments Stop Taking Amlodipine (amLODIPine 5 mg oral tablet) 1 tab(s) Oral Daily Stop Taking Lisinopril (lisinopril 10 mg oral tablet) 1 tab(s) Oral Daily Test Results Below is a partial list of the most recent Laboratory test results done prior to this discharge. You may have had other tests and procedures not included in this list. Please discuss all test resultswith your provider. Est Creatinine Clearance - 74.88 mL/min (06/04/2023) BUN (06/05/2023) ???BUN - 13 mg/dL Calcium Ionized (06/05/2023) ???Calcium, Ionized pH Corrected - 1.22 mmol/L CBC (06/03/2023) ???WBC - 14.4 k/mm3???RBC - 3.86 m/mm3???Hgb - 12.1 Gm/dL???Hct - 37.2 %???MCV - 96.4 femtoliters???MCH - 31.3 pg???MCHC - 32.5 g/dL???Platelet Count - 212 k/mm3???RDW-SD - 43.4 femtoliters???MPV - 9.6 femtoliters???Nucleated RBC (Automated) - 0.0 #/100 WBC'S???Abs. NRBC - 0.0 k/mm3 CBC w/ Differential (06/05/2023) ???WBC - 6.6 k/mm3???RBC - 3.38 m/mm3???Hgb - 10.7 Gm/dL???Hct - 33.0 %???MCV - 97.6 femtoliters???MCH - 31.7 pg???MCHC - 32.4 g/dL???Platelet Count - 198 k/mm3???RDW-SD - 44.9 femtoliters???MPV - 10.1 femtoliters???Nucleated RBC (Automated) - 0.0 #/100 WBC'S???Abs. NRBC - 0.0 k/mm3???Abs. Neut - 4.3 k/mm3???Abs. Lymph - 1.4 k/mm3???Abs. Levy - 0.6 k/mm3???Abs. Eo - 0.3 k/mm3???Abs. Baso - 0.1 k/mm3???Neut % - 64.9 %???Lymph % - 20.7 %???Levy % - 9.0 %???Eos % - 4.1 %???Baso % - 0.8 %???Imm Gran - 0.5 %???Abs. Imm Gran - 0.0 k/mm3 Creatinine (06/05/2023) ???Creatinine-Blood - 0.7 mg/dL???Estimated GFR Creatinine - 100 ML/MIN/1.73 M2 GLUCOSE POC (06/03/2023) ???Glucose, POC - 180 mg/dL Lytes (06/05/2023) ???Sodium - 142 mmol/L???Potassium - 4.7 mmol/L???Chloride - 107 mmol/L???Bicarbonate Level - 27 mmol/L???Anion Gap - 8 Magnesium Level (06/05/2023) ???Magnesium - 1.8 mg/dL Phosphorus Level (06/05/2023) ???Phosphorus - 3.5 mg/dL Allergies (NKA means No Known Allergies) morphine??(combative, CONFUSED OUT OF IT) Problems Active Problems??(26) Achalasia?? anxiety?? Anxiety?? asthma?? Bronchitis?? Bursitis, Right Shoulder?? Chronic back pain?? Chronic neck pain?? COPD (chronic obstructive pulmonary disease)?? depression?? H/O Cervical Fusion?? H/O Childhood Seizures?? H/O L5-S1 fusion?? Hemorrhoids?? Hypertension?? Low serum cortisol level?? lumbar degeneration?? Lumbar disc herniation with radiculopathy?? Medial epicondylitis, right elbow?? Multiple lung nodules?? OA?? Opioid use disorder, severe, in sustained remission?? Polyarthralgia?? Tobacco abuse?? Tobacco use disorder?? Underweight?? Education Materials Below is the list of Educational Leaflet Providered with your Discharge Instructions. Thoracic Post Surgical Exercise Program?? Thoracic Post Thoracoscopy?? Valuables and Belongings I fully understand and agree that [facility] accepts no responsibility for all my personal property including clothing, toilet articles, radios, jewelry, dentures, hearing aids, rings, money, or any other property that is in my possession or is brought to me after admission. I understand certain valuables may be placed in a hospital safe for a short period of time. I understand that the hospital is not liable for loss or damage due to accident, fire, or other natural occurrence while said property is in the safe. I accept full responsibility for any personal property that I keep with me, and will not hold the hospital responsible in case of loss or disappearance. I acknowledge that i have been encouraged to send valuables and belongings home. ?? Review of Valuable and Belonging List: With patient Date for Pt to Sign Valuables/Belongings: 06/03/23 21:45:00 ?? Other Discharge Information ? Pulmonary Rehab Status?? Pulmonary Rehab Discharge Status?? Respiratory Rate: 18 br/min ? Common Emergency Awareness Tips IS IT A STROKE? Act FAST and Check for these signs: FACE Does the face look uneven? ARM Does one arm drift down? SPEECH Does their speech sound strange? TIME Call at any sign of stroke ?? Heart Attack Signs Chest discomfort: Most heart attacks involve discomfort in the center of the chest and lasts more than a few minutes, or goes away and comes back. It can feel like uncomfortable pressure, squeezing, fullness or pain. Discomfort in upper body: Symptoms can include pain or discomfort in one or both arms, back, neck, jaw or stomach. Shortness of breath: With or without discomfort. Other signs: Breaking out in a cold sweat, nausea, or lightheaded. Remember, MINUTES DO MATTER. If you experience any of these heart attack warning signs, call to get immediate medical attention! ?? Smoking can increase your chances of developing chronic health problems and can cause harmful effects to other family members in your house. If you smoke, you are strongly encouraged to quit. Please call [facility] [employer] [facility] at [phone] or [phone]-[facility] (6024) or log in to [email or web address] health [email or web address] for referrals to smoking cessation programs. ?? 404 Suicide & Crisis Lifeline is available 09/02 if you or someone you know needs to find a reason to keep living. By calling 954 you'll be connected to a skilled, trained counselor at a crisis center in your area. INPATIENT DISCHARGE INSTRUCTIONS SIGNATURE PAGE MIREYA ANDERSON Location:[facility] Registration Date and Time:06/03/2023 05:33 EST Primary Care Physician: Rhonda Escobedo NP, Attending Physician: Tha Ga DO, I MIREYA ANDERSON, have received the above patient education materials/instructions and have verbalized understanding. If ambulance or transport services are being used I further acknowledge being given a choice of service. ?? If you need to contact me, please call me at this number: . Patient/Joist Setter Name: Patient/Joist Setter Signature: Relationship to Patient: Witness Name/Signature: Date: * Cecelia Hinson NP: PERFORM, SIGN, VERIFY Event Display: Patient Education Handout Authored Date: [id number] * Cecelia Hinson NP: PERFORM Event Display: Patient Education Leaflets Authored Date: Thoracic Post Surgical Exercise Program ?? 307 Post Surgical Exercise Program 1. Stand near a wall as shown 2. Slowly walk your fingers up the wall, so that you feel a stretch 3. Hold for 5 seconds 4. 5 repetitions, 5 times per day ?? 1. Stand grasping the surgical side elbow with other hand 2. Pull the elbow behind and toward your head so that you feel a stretch 3. Hold for 5 seconds 4. 5 repetitions, 5 times per day ?? 1. Stand grasping the surgical side elbow with other hand 2. Pull the elbow and arm across your chest so that you feel a stretch 3. Hold for 5 seconds 4. 5 repetitions, 5 times per day ?? * Cecelia Hinson NP: PERFORM Event Display: Patient Education Leaflets Authored Date: Thoracic Post Thoracoscopy ?? 309 Post-Thoracoscopy/Thoractomy Discharge Instructions General Care Pain Management ??? Please stay ahead of your pain.? Take prescribed pain medication EVERY 4-6 hours for the first 24-48 hours at home.? Once pain sets in, it is difficult to play catch up and control yourpain.? Pain after surgery is expected & should improve daily. ? ? Stay on top of your paincontrol.? As mentioned above, once pain sets in, it can affect you many different ways???..such as your breathing, ambulation, appetite etc. ??? You will be able to function?? more and have morestamina if you get ahead of your pain ??? If taking more than one pain medication, alternate times so you are taking pain medications every couple of hours instead of all at once Showering/Bathing ??? After your chest tube dressing is removed: ??? SHOWER every day ??? Gently wash your incisions with an antibacterial soap.? NO BATHS until all of your incisions are completely healed (check with your surgeon). Activity ??? WALK every day. Strive to walk at least 30 minutes without stopping daily. ??? NO heavy lifting, pushing, or pulling (10 lbs maximum) for 1-2 weeks after discharge. ??? Do not drive any vehicle (car, truck, golf cart, tractor etc) ??? Continue to USE your incentive spirometer every 2-3 hours for 1 week after your hospital discharge. Exercise ??? Follow your exercise sheet as instructed (see attached). Call your surgeon if you have: ??? FEVER over 101.0 F ??? Increasing chest pain, change in pain, or shortness of breath. ??? Increasing redness, swelling, pain, or drainage from an incision. Common Questions Post-Procedure? Drainage out of the chest tube site ??? Drainage out of the chest tube incision is very typical.?? Especially when coughing or bearing down.? It???s actually better for the incision to drain and have material leave the chest cavity at any time within the first 5 days at home.? Continue to cover with dry sterile dressing andchange dressing until drainage stops At the ends of my incision, there is a string or redness/ irritation ??? In order to close the incision, surgeons use a dissolvable suture beneath the top layer of skin.? At times the ends of the string can appear before the incision heals. Continue to monitor.? If there is increasing redness, swelling, pain or drainage from the incision, please call the office. When can I fly in an airplane? Depending on the surgery/cause of hospital stay there may be restrictions on flying in an airplane.? Increases in atmospheric pressure, such as flying or deep sea diving, can affect the pressure in the chest cavity.? Please check with your surgeon if you plan or have planned a trip within the next 3 months. My bowels have been irregular since surgery, what do I do? Narcotic pain medication and anesthesia can cause constipation.Upon discharge a prescription for a stool-softener/laxative was prescribed. ??? Follow the directions and take the medicine twice daily for constipation, if needed.? If you did not receive this prescription or you have not moved your bowels within 3 days of discharge, please call the office. My chest tube site is red with thick yellow drainage? This can be normal for some chest tube incisions.? Healing starts from the inside and works its way to the skin. ??? Each week from your surgery date this incision will look better. ??? The healing process is slow, so be patient.? You can address any concerns at your post operative visit and always call the office if you have any questions. ? Patient Care team information Care Team Personnel Name: Aurelia Yang RN Position: [facility] RN Member Role: Primary Care Nurse Name: Rhonda Escobedo NP Position: [facility] PCO Associate Professional Member Role: PCP Address: Address: [address], [address] [place], [place] [address] Name: Yue Delgado RN Position: S RN Member Role: Primary Care Nurse Name: Debo Gagnon Position: S RN Member Role: Primary Care Nurse Name: Lisa Awad RN Position: S RN Member Role: Primary Care Nurse Name: Elly Rodriges RN Position: [facility] RN Member Role: Primary Care Nurse Name: Nilda Pop RN Position: S RN Member Role: Primary Care Nurse Care Team Related Persons Name: CHARLINE DIOP Address: [place] [address] Name: YAZMIN ANDERSON Address: home [address] [place] [address] Name: MAEGAN ANDERSON Address: home [address] [place] [address]
--- OUTSIDE RECORDS SUMMARY | 2024-03-09 07:27 | XMS_ITS | Continuity of Care Document ---
Author Organization [facility] Adult Address [address] [place] [address]- Care Team Providers Care Senior Patient Account Representative Name Role Phone Fanny TOURE, Rhonda Primary Care Physician Encounter [facility] Date(s): 05/08/23 - 06/07/23 [facility] [address] [place] [address]- Allergies, Adverse Reactions, Alerts Substance Reaction Severity [...] 06/04/23 13:39:00 EST, Route to Pharmacy Electronically, [facility], Partial fill upon patient request if the pr... Start Date: 06/04/23 Stop Date: 06/11/23 Status: Ordered Albuterol (Eqv-ProAir HFA) 90 mcg/inh inhalation aerosol 1 puffs, Inhalation, 4 times a day, PRN NEEDED FOR COUGH, # 8.5 each, 5 Refills, Maintenance, 05/18/23 13:33:00 EDT, [facility] STORE [facility], 25, INHALE 1 PUFF 4 TIMES A DAY NEEDED FOR COUGH, 170, cm, 05/05/23 12:54:00 EDT, Height, 50, kg, 11/15/21 11:2... Start Date: 05/18/23 Status: Ordered celecoxib 200 mg oral capsule 1 capsule = 200 mg, By Mouth, 2 times a day, # 14 capsule, 0 Refills, Maintenance, 06/04/23 13:40:00 EST, Capsule, [facility], Partial fill upon patient request if the prescription is for a schedule II opioid drug., 170, cm, 06/03/23 14:... Start Date: 06/04/23 Stop Date: 06/11/23 Status: Ordered cholecalciferol 50,000 intl units oral capsule 1 capsule = 50,000 International_Units, By Mouth, Every 7 days, # 13 capsule, 3 Refills, Maintenance, 02/08/23 9:24:00 EDT, Capsule, [facility]/pharmacy #[id number], Partial fill upon patient request, [...] 06/04/23 13:40:00 EST, Route to Pharmacy Electronically, [facility], Partial fill uponpatient request if the [...] Unknown, 5 Refills, Maintenance, 12/11/22 19:25:00 EDT, [facility] STORE [facility]77, 90, INSTILL 2 SPRAYS INTO EACH NOSTRIL 3 TIMES A DAY NEEDED FOR CONGESTION, 1... Start Date: 12/11/22 Status: Ordered metoprolol 25 mg oral tablet 12.5 mg, 0.5, tablet, By Mouth, Every 12 hours, # 30 tablet, Refills 0, Tot. Refills 0, Maintenance, 06/04/23 13:43:00 EST, Route to Pharmacy Electronically, [facility], Partial fill upon patient request if the prescription is for a sche... 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 Refills 0, Maintenance, 05/24/23 8:17:00 EST, Route to Pharmacy Electronically, [facility]/pharmacy #[id number], Partial fill upon patient [...] use disorder Confirmed Active Underweight Confirmed Active Social History Social History Type Response Tobacco Use: 4 or less cigar ettes(less than 1/4 pack)/day in last 30 days. Other: 2-3 cig/d x 40 years; was at 0.5 pp/d. Sex Patient Care team information Care Team Personnel Name: Aurelia Yang RN Position: [facility] RN Member Role: Primary Care Nurse Name: Rhonda Escobedo NP Position: [facility] PCO Associate Professional Member Role: PCP Address: Address: [address] [place] [address], [address] [place] [address]- Name: Yue Delgado RN Position: [facility] RN Member Role: Primary Care Nurse Name: Debo Gagnon Position: S RN Member Role: Primary Care Nurse Name: Lisa Awad RN Position: [facility] RN Member Role: Primary Care Nurse Name: Elly Rodriges RN Position: [facility] SN RN Member Role: Primary Care Nurse Name: Nilda Pop RN Position: [facility] RN Member Role: Primary Care Nurse Care Team Related Persons Name: DIOP CHARLINE Address: [place] [address] Name: ELDER ANDERSON Address: home [address] [place] [address] Name: MAEGAN ANDERSON Address: home [address] [place] [address]
--- OUTSIDE RECORDS SUMMARY | 2024-03-09 07:27 | XMS_ITS | Continuity of Care Document ---
Author Organization [facility] Address Unknown Care Team Providers Care Waiter/Waitress Formal Name Role Phone Fanny TOURE, Rhonda Primary Care Physician [phone] [facility]counter [facility] Date[facility]s): 12/02/21 - 01/01/22 [facility] Attending Physician: Sam Carter Admitting Physician: Sam Carter Referring Physician: AdmtrSam Allergies, Adverse Reactions, Alerts Substance Reaction Severity Status morphine 1 combative CONFUSED OUT OF IT Active 1hallucintations, confusion Immunizations Given and Recorded Vaccine Date Status Refusal Reason SARS-CoV-2 (COVID-19) mRNA-1273 vaccine 12/18/21 R ecorded [...] FOR WHEEZING, # 8.5 each, 5 Refills, [id number], 17, INHALE 2 PUFFS EVERY 4 HOURS NEEDED FOR WHEEZING, 170, cm, 11/15/21 11:23:00 EDT, Height, 50, kg, 11/15/21 11:23:00 EDT, Dry Weight Start Date: 11/17/21 Status: Ordered amLODIPine 5 mg oral tablet 1 tablet, By Mouth, Daily, # 90 tablet, 0 Refills, [facility], 170, cm, 11/15/21 11:23:00 EDT,Height, 50, kg, 11/15/21 11:23:00 EDT, Dry Weight Start Date: 11/17/21 Status: Ordered Anusol-HC 2.5% cream with applicator [...] EVERY DAY, # 90 tablet, 1 Refills, [facility], 170, cm, 12/17/21 8:41:00 EDT, Height, 50, [...] 2 Refills, Maintenance, 09/24/21 11:18:00 EST, Cream, [facility]/pharmacy #[id number], Partial fill upon patient request if the prescription is for a schedule II opioid drug., 1 application Topically 3 times a day,... Start Date: 09/24/21 Status: Ordered hydrocortisone topical 25 mg suppository 1 supp = 25 mg, Rectally, 2 times a day, # 28 supp, 0 Refills, Maintenance, 10/02/21 13:05:00 EDT, Suppository, [facility]/pharmacy #[id number], Partial fill upon patient request if the prescription is for a schedule II opioid drug., 170, cm, 10/02/21 10:36:00 EDT... Start Date: 10/02/21 Stop Date: 10/16/21 Status: Ordered ipratropium nasal 21 mcg/inh spray 2 sprays, Nares, Both, 3 times a day, PRN as needed for congestion, # 1 each, 0 Refills, Acute 01/19/22 17:07:00 EDT, 12/20/21 17:07:00 EDT, [facility]/pharmacy #1234, Partial fill upon patient request if the prescription is for a schedule II opioid drug., 2... Start Date: 12/20/21 Stop Date: 01/19/22 Status: Ordered lisinopril 10 mg oral tablet 1, tablet, By Mouth, Daily, # 30 tablet, Refills 1, Route to Pharmacy Electronically, [facility] ST[facility] 496[facility], 170, cm, 12/05/21 10:11:00 EDT, Height, 50, kg, 11/15/21 11:23:00 EDT, Dry Weight Start Date: 12/13/21 Status: Ordered lisinopril 40 mg oral tablet See Instructions, TAKE 1 TABLET BY MOUTH EVERY DAY, # 90 tablet, 1 Refills, [facility], 170, cm, 12/17/21 8:41:00 EDT, Height, 50, kg, 11/15/21 11:23:00 EDT, Dry Weight Start Date: 12/17/21 Status: Ordered Nicotrol Inhaler 10 mg inhalation device See Instructions, use 6 cartridges per day, # 84 capsule, 0 Refills, Maintenance, 04/15/21 10:30:00EDT, [facility]/pharmacy #[id number], Partial fill upon patient request if the prescription is for a schedule IIopioid drug., use 6 cartridges per day, 170, cm, 09... Start Date: 04/15/21 Status: Ordered oxyCODONE 10 mg oral tablet 1 tablet = 10 mg, By Mouth, Every 6 hours, PRN as needed for severe pain, # 120 tablet, 0 Refills, Maintenance, 12/17/21 10:05:00 EDT, Tablet, [facility]/pharmacy #[id number], Partial fill upon patient request ifthe prescription is for a schedule II opioid drug.... Start Date: 12/17/21 Stop Date: 01/16/22 Status: Ordered OxyCONTIN 10 mg oral tablet, extended release 10 mg, 1, tablet, By Mouth, Every 12 hours, # 56 tablet, Refills 0, Tot. Refills 0, Maintenance, 12/13/21 10:46:00 EDT, Route to Pharmacy Electronically, [facility]/pharmacy #[id number], in addition to his IR oxycodone, 170, cm, 12/05/21 10:11:00 EDT, Height, 50,... Start Date: 12/13/21 Stop Date: 01/10/22 Status: Ordered Problem List Condition Effective Dates Status Health Status Inform ant Achalasia(Confirmed) Active Anxiety(Confirmed) Active Bronchitis(Confirmed) Active Chronic back pain(Confirmed) Active Chronic neck pain(Confirmed) Active Low serum cortisol level(Confirmed) Active Hemorrhoids(Confirmed) Active Hypertension(Confirmed) Active Lumbar disc herniation with radiculopathy(Confirmed) Active Medial epicondylitis, right elbow(Confirmed) Active Polyarthralgia(Confirmed) Active Multiple lung nodules(Confirmed) Active Opioid use disorder, severe, in sustained remission(Confirmed) Active Tobacco use disorder(Confirmed) Active Social History Social History Type Response Tobacco Other: Smokes about 12 cigarettes daily. Prior to this, smoking about 1 PPD for 35 years.. Sex
--- OUTSIDE RECORDS SUMMARY | 2024-03-09 07:27 | XMS_ITS | Continuity of Care Document ---
Author Organization [facility] ter Address [address] [place] [id number]- Care Team Providers Care Senior Backup Administrator Name Role Phone Tonja TOURE, Jeannette Olivera Primary Care Physicia n [facility] Date[facility]s): 01/[facility] - 01/01/[address] [address] Discharge Disposition: A-D/C Home Attending Physician: Samuel ELDER, Avis Wynn Admitting Physician: Avis Baker MD Referring Physician: Beck Turk DO Allergies, Adverse Reactions, Alerts Substance Reaction Severity Status morphine 1 combative CONFUSED OUT OF IT Active 1hallucintations, confusion Immunizations Given and Recorded Vaccine Date Status Refusal Reason SARS-CoV-2 (COVID-19) Ad26 vaccine 10/21/20 Record ed influenza virus vaccine, inactivated 02/18/20 Pedro rded influenza virus vaccine, inactivated 02/26/18 Pedro rded influenza virus vaccine, inactivated 04/05/17 Pedro rded influenza virus vaccine, inactivated 03/28/14 Pedro rded influenza virus vaccine, inactivated 04/03/11 Pedro rded influenza virus vaccine, inactivated 04/22/10 Pedro rded influenza virus vaccine, inactivated 03/12/10 Pedro rded influenza virus vaccine, inactivated 07/04/08 Pedro rded pneumococcal 13-valent vaccine 05/03/19 Recorded Zoster Vaccine Live 01/19/17 Recorded influ virus vac, H1N1, inactive(oldterm) 08/14/09 Given pneumococcal 23-valent vaccine 08/14/09 Given tetanus/diphtheria/pertussis, acel(Tdap) 07/04/08 Recorded Medications Back Brace See Instructions, # 1 each, [...] 0 Refills Start Date: 09/09/07 Status: Ordered lisinopril 5 mg oral tablet 5 mg, 1, tablet, By Mouth, Daily, This is an increase in dose, # 30 tablet, Refills 1, Tot. Refills1, Maintenance, 12/31/20 9:59:00 EDT, Route to Pharmacy Electronically, [facility]/pharmacy #[id number], Partialfill upon patient request if the prescription is fo... Start Date: 12/31/20 Status: Ordered Mapap Arthritis Pain 650 mg oral tablet, extended release 2 tablet = 1,300 mg, By Mouth, Every 8 hours, PRN as needed for pain, # 100 tablet, 0 Refills, Maintenance, 12/06/20 6:51:00 EDT, ER Tablet, Partial fill upon patient request if the prescription is for a schedule II opioid drug. Start Date: 12/06/20 Status: Ordered meloxicam 15 mg oral tablet 1 tablet = 15 mg, By Mouth, Daily, # 30 tablet, 0 Refills, Maintenance, 12/06/20 6:49:00 EDT, Tablet, Partial fill upon patient request if the prescription is for a schedule II opioid drug. Start Date: 12/06/20 Status: Ordered omeprazole 20 mg oral delayed release tablet 1 tablet = 20 mg, By Mouth, Daily, # 90 tablet, 1 Refills, Maintenance, 08/23/20 13:22:00 EST, CR Tablet, [facility]/pharmacy #1234, Partial fill upon patient request if the prescription is for a schedule II opioid drug., 170, cm, 08/21/20 6:19:00 EST, Heigh... Start Date: 08/23/20 Status: Ordered ProAir HFA 90 mcg/inh inhalation aerosol 2 puffs, Inhalation, Every 4 hours, PRN NEEDED FOR WHEEZE, # 8.5 Unknown, 5 Refills, Maintenance, 10/15/20 8:28:00 EDT, [facility]/pharmacy #[id number], 17, 2 puffs Inhalation Every 4 hours,PRN: NEEDED FOR WHEEZE, 170, cm, 09/20/20 15:16:00 EST, Height, 55.2,... Start Date: 10/15/20 Status: Ordered Problem List Condition Effective Dates Status Health Status Inform ant Anxiety(Confirmed) Active Bronchitis(Confirmed) Active Chronic back pain(Confirmed) Active Chronic neck pain(Confirmed) Active Low serum cortisol level(Confirmed) Active Hypertension(Confirmed) Active Lumbar disc herniation with radiculopathy(Confirmed) Active Medial epicondylitis, right elbow(Confirmed) Active Polyarthralgia(Confirmed) Active Multiple lung nodules(Confirmed) Active Opioid use disorder, severe, in sustained remission(Confirmed) Active Pain in the shoulder(Confirmed) Active Tobacco use disorder(Confirmed) Active Social History Social History Type Response Tobacco Other: Smokes about 12 cigarettes daily. Prior to this, smoking about 1 PPD for 35 years.. Sex
--- OUTSIDE RECORDS SUMMARY | 2024-03-09 07:27 | XMS_ITS | Continuity of Care Document ---
Author Organization [facility] Address [address] [place] [address], [address] [place] [address]- Care Team Providers Care Military Cook Name Role Phone Fanny TOURE, Rhonda Primary Care Physician [phone] [facility]counter [facility] Date[facility]s): 05/05/23 - 05/12/23 [facility] [address] [place] [address], [address] [place], [place] [address] Attending Physician: Tha Ga DO Referring Physician: Rhonda Escobedo NP Allergies, Adverse [...] 01/19/17 Recorded influ virus vac, H1N1, inactive(oldterm) 1/26/10 Given pneumococcal 23-valent vaccine 08/14/09 Given tetanus/diphtheria/pertussis, acel(Tdap) 07/04/08 Recorded Medications amLODIPine 5 mg oral tablet 1 tablet, By Mouth, Daily, # 90 tablet, 1 Refills, Maintenance, 12/04/22 8:21:00 EDT, [facility]/pharmacy #1972, 170, cm, 08/05/22 8:05:00 EST, Height, 50, kg, 11/15/21 11:23:00 EDT, Dry Weight Start Date: 12/04/22 Status: Ordered Anusol-HC 2.5% cream with applicator 1 application, Rectally, 2 times a day, # 30 Gm, 1 Refills, Maintenance, 09/24/21 13:25:00 EST, Cream, [facility]/pharmacy #1234, Partial fill upon patient request if the prescription is for a schedule II opioid drug., 1 application Rectally 2 times a day, 1... Start Date: 09/24/21 Status: Ordered Anusol-HC 2.5% cream with applicator 1 application, Rectally, 2 times a day, # 30 Gm, 1 Refills, Maintenance, 06/27/21 14:24:00 EST, Cream, [facility]/pharmacy #1234, Partial fill upon patient request if the prescription is for a schedule II opioid drug., 1 application Rectally 2 times a day, 1... Start Date: 06/27/21 Status: Ordered atorvastatin 20 mg oral tablet 1 tablet, By Mouth, Daily, # 90 tablet, 1 Refills, Maintenance, 05/01/23 7:04:00 EDT, [facility] 61954, 170, cm, 02/06/23 9:02:00 EDT, Height, 50, kg, 11/15/21 11:23:00 EDT, Dry Weight Start Date: 05/01/23 Status: Ordered Back Brace See Instructions, # 1 each, Refills 0, Tot. Refills 0, Maintenance, Use for low back support, 07/06/20 14:42:00 EST, Supply Start Date: 07/06/20 Status: Ordered cholecalciferol 50,000 intl units oral capsule 1 capsule = 50,000 International_Units, By Mouth, Every 7 days, # 13 capsule, 3 Refills, Maintenance, 02/08/23 9:24:00 EDT, Capsule, [facility]/pharmacy #1972, Partial fill upon patient request, 170, [...] 2 Refills, Maintenance, 09/24/21 11:18:00 EST, Cream, [facility]/pharmacy #1234, Partial fill upon patient request [...] Unknown, 5 Refills, Maintenance, 12/11/22 19:25:00 EDT, [facility] ST[facility] 57715, 90, INSTILL 2 SPRAYS INTO EACH NOSTRIL 3 TIMES A DAY NEEDED FOR CONGESTION, 1... Start Date: 12/11/22 Status: Ordered lisinopril 10 mg oral tablet 1, tablet, By Mouth, Daily, # 90 tablet, Refills 1, Maintenance, 05/01/23 7:04:00 EDT, Route to Pharmacy Electronically, [facility] 65[facility], 170, cm, 02/06/23 9:02:00 EDT, Height, 50, kg, 11/15/21 11:23:00 EDT, Dry Weight Start Date: 05/01/23 Status: Ordered Nicotrol Inhaler 10 mg inhalation device See Instructions, USE 6 CARTRIDGES PER DAY, # 168 Unknown, 0 Refills, Maintenance, 02/03/22 9:21:00EDT, [facility]/pharmacy #1234, 28, USE 6 CARTRIDGES PER DAY, 170, cm, 12/31/21 8:21:00 EDT, Height, 50, kg, 11/15/21 11:23:00 EDT, Dry Weight Start Date: 02/03/22 Status: Ordered oxyCODONE 5 mg oral tablet 10 mg, 2, tablet, By Mouth, Every 6 hours, PRN, FORMULA CHECKER checked. Fill on 04/30/23, # 224 tablet, Refills 0, Tot. Refills 0, Maintenance, as needed for pain, 04/24/23 8:29:00 EDT, Route to Pharmacy Electronically, [facility]/pharmacy #1972, Partial fill upon chandrika... Start Date: 04/24/23 Stop Date: 05/22/23 Status: Ordered OxyCONTIN 10 mg oral tablet, extended release 10 mg, 1, tablet, By Mouth, Every 12 hours, FORMULA CHECKER checked. Fill on 04/30/23, # 56 tablet, Refills 0, Tot. Refills 0, Maintenance, 04/24/23 8:29:00 EDT, Route to Pharmacy Electronically, [facility]/pharmacy #1972, in addition to his IR oxycodone, 170, cm, 02/06... Start Date: 04/24/23 Stop Date: 05/22/23 Status: Ordered Ventolin HFA 108 mcg/inh inhalation aerosol with adapter See Instructions, INHALE 1 PUFF 4 TIMES A DAY NEEDED FOR COUGH, # 18 each, 5 Refills, Maintenance, 12/11/22 19:25:00 EDT, [email or web address], 170, cm, 08/05/22 8:05:00 EST, Height, 50, kg, 11/15/21 11:23:00 EDT, Dry Weight Start Date: 12/11/22 Status: Ordered Problem List Condition Confirmation Course [...] oldest [Reference Range]: 1 Height 170 cm (05/05/23 12:54 PM) Weight 54.3 kg (05/05/23 12:54 PM) Oxygen Saturation [94-100 %] 98 % (05/05/23 12:54 PM) Pulse Rate [55-90 bpm] 54 bpm *L* (05/05/23 12:54 PM) Body Mass Index [18.5-24.99 kg/m2] 18.79 kg/m2 (05/05/23 12:54 PM) Blood Pressure [90-138/55-84 mm Hg] 112/ 52mm Hg (05/05/23 12:54 PM) Temperature [96.8-100.4 DegF] 97.8 DegF (05/05/23 12:54 PM) Mode of Delivery (Oxygen) Room air (05/05/23 12:54 PM) Blood pressure sites Arm, right (05/05/23 12:54 PM) Temperature Route Temporal (05/05/23 12:54 PM) Weight Obtained Via Standing scale (05/05/23 12:54 PM) Social History Social History Type Response Tobacco Use: 4 or less cigar ettes(less than 1/4 pack)/day in last 30 days. Other: 2-3 cig/d x 40 years; was at 0.5 pp/d. Sex Patient Care team information Care Team Personnel Name: Rhonda Escobedo NP Position: [facility] PCO Associate Professional Member Role: PCP Address: Address: [address], [address] [place] [address]- Name: Lisa Awad RN Position: S RN Member Role: Primary Care Nurse Name: Elly Rodriges RN Position: [facility] SN RN Member Role: Primary Care Nurse Care Team Related Persons Name: CHARLINE DIOP Address: [place] [address] Name: ELDER ANDERSON Address: home [address] [place] [address] Name: MAEGAN ANDERSON Address: home [address] [place] [address]
--- OUTSIDE RECORDS SUMMARY | 2024-03-09 07:27 | XMS_ITS | Continuity of Care Document ---
Author Organization [facility] ter Address [address] [place] [address]- Care Team Providers Care Building Economist Name Role Phone Fanny TOURE, Rhonda Primary Care Physician [phone] [facility]s): 05/27/23 - 05/27/[address] [address] Discharge Disposition: A-D/C Home Attending [...] each, 5 Refills, Maintenance, 05/18/23 13:33:00 EDT, [facility] STORE 36486, 25, INHALE 1 PUFF 4 TIMES A DAY NEEDED FOR COUGH, 170, cm, 05/05/23 12:54:00 EDT, Height, 50, kg, 11/15/21 11:2... Start Date: 05/18/23 Status: Ordered amLODIPine 5 mg oral tablet 1 tablet, By Mouth, Daily, # 90 tablet, 1 Refills, Maintenance, 12/04/22 8:21:00 EDT, [facility], 170, cm, 08/05/22 8:05:00 EST, Height, 50, kg, 11/15/21 11:23:00 EDT, Dry Weight Start Date: 12/04/22 Status: Ordered Back Brace See Instructions, # [...] Unknown, 5 Refills, Maintenance, 12/11/22 19:25:00 EDT, [facility] STORE 80065, 90, INSTILL 2 SPRAYS INTO EACH NOSTRIL 3 TIMES A DAY NEEDED FOR CONGESTION, 1... Start Date: 12/11/22 Status: Ordered lisinopril 10 mg oral tablet 1, tablet, By Mouth, Daily, # 90 tablet, Refills 1, Maintenance, 05/01/23 7:04:00 EDT, Route to Pharmacy Electronically, [facility], 170, cm, 02/06/23 9:02:00 EDT, Height, 50, kg, 11/15/21 11:23:00 EDT, Dry Weight Start Date: 05/01/23 Status: Ordered Nicoderm C-Q 7 mg/24 hr transdermal film, extended release 1 patch, Topically, Daily, # 30 patch, 0 Refills, Maintenance, 05/26/23 10:00:00 EST, Patch, Partial fill upon patient request if the prescription is for a schedule II opioid drug. Start Date: 05/26/23 Status: Ordered oxyCODONE 5 mg oral tablet 10 mg, 2, tablet, By Mouth, Every 6 hours, PRN, WORM PACKER checked. Fill 05/26 2023, # 224 tablet, Refills 0, Tot. Refills 0, Maintenance, as needed for pain, 05/24/23 8:15:00 EST, Route to Pharmacy Electronically, [facility]/pharmacy #1972, Partial fill upon patien... Start Date: 05/24/23 Stop Date: 06/21/23 Status: Ordered OxyCONTIN 20 mg oral tablet, extended release 20 mg, 1, tablet, By Mouth, Every 12 hours, mimeographer chacked fill 05/26/2023, # 56 tablet, Refills 0, Tot. Refills 0, Maintenance, 05/24/23 8:17:00 EST, Route to Pharmacy Electronically, [facility]/pharmacy #1972, Partial fill upon patient request [...] oldest [Reference Range]: 1 Height 170 cm (05/26/23 10:10 AM) Weight 56.5 kg (05/26/23 10:10 AM) Body Mass Index [18.5-24.99 kg/m2] 19.55 kg/m2 (05/26/23 10:10 AM) Dry Weight 56.5 kg (05/26/23 10:10 AM) Weight Obtained Via Patient/family state d (05/26/23 10:10 AM) Dry Weight Obtained Via Patient/family s tated (05/26/23 10:10 AM) Social History Social History Type Response Tobacco Use: 4 or less cigar ettes(less than 1/4 pack)/day in last 30 days. Other: 2-3 cig/d x 40 years; was at 0.5 pp/d. Sex Note * Cecelia Hinson NP: VERIFY, PERFORM, SIGN Event Display: Patient Education Handout Authored Date: [id number] * Cecelia Hinson NP: PERFORM Event Display: Patient Education Leaflets Authored Date: [id number] Thoracic Post Surgical Exercise Program ?? 307 [...] repetitions, 5 times per day ?? * Sravan TOURE, Cecelia M: PERFORM Event Display: Patient Education Leaflets Authored Date: [id number] Thoracic Post Thoracoscopy ?? 309 Post-Thoracoscopy/Thoractomy Discharge [...] Team Personnel Name: Aurelia Yang RN Position: [facility] RN Member Role: Primary Care Nurse Name: Rhonda Escobedo NP Position: [facility] PCO Associate Professional Member Role: PCP Address: Address: [address] [place] [address], [address] [place] [address]- Name: Yue Delgado RN Position: [facility] RN Member Role: Primary Care Nurse Name: Lisa Awad RN Position: [facility] RN Member Role: Primary Care Nurse Name: Elly Rodriges RN Position: [facility] SN RN Member Role: Primary Care Nurse Care Team Related Persons Name: JADON CHARLINE Address: [place] [address] Name: ELDER ANDERSON Address: home [address] [place] [address] Name: MAEGAN ANDERSON Address: home [address] [place] [address]
--- OUTSIDE RECORDS SUMMARY | 2024-03-09 07:27 | XMS_ITS | Continuity of Care Document ---
Author Organization [facility] Adult Address [address] [place] [address]- Care Team Providers Care Cyber Security Instructor Name Role Phone Fanny FRAME AND SCRAP CRUSHER, Rhonda Primary Care Physician [facility] Date[facility]s): 01/14/22 - 02/13/22 [facility] [address] [place] [id number]- Allergies, Adverse Reactions, Alerts Substance Reaction Severity [...] 8.5 each, 5 Refills, 02/05/22 13:07:00 EDT, [facility]/pharmacy #1234, 17, 2 puffs Inhalation Every 4 hours,PRN: NEEDED FOR WHEEZING, 170,cm, 12/31/21 8:21:00 EDT, Height, 50, kg, 11/15/21... Start Date: 02/05/22 Status: Ordered amLODIPine 5 mg oral tablet 1 tablet, By Mouth, Daily, # 90 tablet, 0 Refills, [id number], 170, cm, 11/15/21 11:23:00 EDT,Height, 50, kg, 11/15/21 11:23:00 EDT, Dry Weight Start Date: 11/17/21 Status: Ordered Anusol-HC 2.5% cream with applicator 1 application, Rectally, 2 times a day, # 30 Gm, 1 Refills, Maintenance, 09/24/21 13:25:00 EST, Cream, [facility]/pharmacy #1234, Partial fill upon patient request if the prescription is for a schedule II opioid drug., 1 application Rectally 2 times a day, 1... Start Date: 09/24/21 Status: Ordered Anusol-HC 2.5% cream with applicator 1 application, Rectally, 2 times a day, # 30 Gm, 1 Refills, Maintenance, 06/27/21 14:24:00 EST, Cream, [facility]/pharmacy #1234, Partial fill upon patient request if the prescription is for a schedule II opioid drug., 1 application Rectally 2 times a day, 1... Start Date: 06/27/21 Status: Ordered atorvastatin 20 mg oral tablet 1 tablet = 20 mg, By Mouth, Daily, # 30 tablet, 5 Refills, Maintenance, 11/17/21 19:20:00 EDT, Tablet, [facility]/pharmacy #1234, Partial fill upon patient request if the prescription is for a schedule II opioid drug., 170, cm, 11/15/21 11:23:00 EDT, Height,... Start Date: 11/17/21 Status: Ordered atorvastatin 20 mg oral tablet See Instructions, TAKE 1 TABLET BY MOUTH EVERY DAY, # 90 tablet, 1 Refills, [facility] STORE [id number], 170, cm, 12/17/21 8:41:00 EDT, Height, 50, [...] 2 Refills, Maintenance, 09/24/21 11:18:00 EST, Cream, [facility]/pharmacy #1234, Partial fill upon patient request if the prescription is for a schedule II opioid drug., 1 application Topically 3 times a day,... Start Date: 09/24/21 Status: Ordered hydrocortisone topical 25 mg suppository 1 supp = 25 mg, Rectally, 2 times a day, # 28 supp, 0 Refills, Maintenance, 10/02/21 13:05:00 EDT, Suppository, [facility]/pharmacy #1234, Partial fill upon patient request if the prescription is for a schedule II opioid drug., 170, cm, 10/02/21 10:36:00 EDT... Start Date: 10/02/21 Stop Date: 10/16/21 Status: Ordered ipratropium nasal 21 mcg/inh spray See Instructions, INSTILL 2 SPRAYS INTO EACH NOSTRIL 3 TIMES A DAY NEEDED FOR CONGESTION, # 30 Unknown, 0 Refills, [facility], 30, INSTILL 2 SPRAYS INTO EACH NOSTRIL 3 TIMES A DAY NEEDED FOR CONGESTION, 170, cm, 12/31/21 8:21:00 EDT, Height... Start Date: 02/05/22 Status: Ordered lisinopril 10 mg oral tablet 1, tablet, By Mouth, Daily, # 30 tablet, Refills 1, Route to Pharmacy Electronically, [facility], 170, cm, 12/05/21 10:11:00 EDT, Height, 50, kg, 11/15/21 11:23:00 EDT, Dry Weight Start Date: 12/13/21 Status: Ordered lisinopril 40 mg oral tablet See Instructions, TAKE 1 TABLET BY MOUTH EVERY DAY, # 90 tablet, 1 Refills, [facility], 170, cm, 12/17/21 8:41:00 EDT, Height, 50, kg, 11/15/21 11:23:00 EDT, Dry Weight Start Date: 12/17/21 Status: Ordered Nicotrol Inhaler 10 mg inhalation device See Instructions, USE 6 CARTRIDGES PER DAY, # 168 Unknown, 0 Refills, Maintenance, 02/03/22 9:21:00EDT, [facility]/pharmacy #1234, 28, USE 6 CARTRIDGES PER DAY, 170, cm, 12/31/21 8:21:00 EDT, Height, 50, kg, 11/15/21 11:23:00 EDT, Dry Weight Start Date: 02/03/22 Status: Ordered oxyCODONE 10 mg oral tablet 1 tablet = 10 mg, By Mouth, Every 6 hours, PRN as needed for severe pain, fill on 02/07/22, # 112 tablet, 0 Refills, Maintenance, 02/06/22 17:30:00 EDT, Tablet, [facility]/pharmacy #1234, Partial fill upon patient request if the prescription is for a schedule... Start Date: 02/06/22 Stop Date: 03/06/22 Status: Ordered OxyCONTIN 10 mg oral tablet, extended release 10 mg, 1, tablet, By Mouth, Every 12 hours, fill on 02/16/22, # 38 tablet, Refills 0, Tot. Refills 0, Maintenance, 02/13/22 17:24:00 EDT, Route to Pharmacy Electronically, [facility]/pharmacy #[id number], in addition to his IR oxycodone, 170, cm, 12/31/21 8:21:00 E... Start Date: 02/13/22 Stop Date: 03/04/22 Status: Ordered Problem List Condition Effective Dates [...]
--- OUTSIDE RECORDS SUMMARY | 2024-03-09 07:27 | XMS_ITS | Continuity of Care Document ---
Author Organization [facility] Adult Address [address] [place] [address]- Care Team Providers Care Radio Artist Name Role Phone Tonja TOURE, Jeannette Oilvera Primary Care Physicia n Encounter [facility] Date(s): 06/14/21 - 07/14/21 [facility] [address] [place] [address]- Allergies, Adverse Reactions, Alerts Substance Reaction Severity [...] 1 Refills, Maintenance, 06/27/21 14:24:00 EST, Cream, [facility]/pharmacy #1234, Partial fill upon patient request if the prescription is for a schedule II opioid drug., 1 application Rectally 2 times a day, 1... Start Date: 06/27/21 Status: Ordered Anusol-HC 2.5% cream with applicator 1 application, Rectally, 2 times a day, # 30 Gm, 1 Refills, Maintenance, 06/27/21 14:24:00 EST, Cream, [facility]/pharmacy #1234, Partial fill upon patient request if the prescription is for a schedule II opioid drug., 1 application Rectally 2 times a day, 1... Start Date: 06/27/21 Status: Ordered atorvastatin 20 mg oral tablet 1 tablet = 20 mg, By Mouth, Daily, # 30 tablet, 5 Refills, Maintenance, 06/19/21 8:09:00 EST, Tablet, [facility]/pharmacy #1234, Partial fill upon patient [...] 5 Refills, Maintenance, 07/03/21 10:04:00 EST, Tablet, [facility]/pharmacy #1234, Partial fill upon patient [...]
--- OUTSIDE RECORDS SUMMARY | 2024-03-09 07:27 | XMS_ITS | Continuity of Care Document ---
Author Organization [facility] Address [address] [place] [address]- Care Team Providers Care Arabic Translator Name Role Phone Chaim Templeton MD Primary Care Physician [phone] Encounter [facility] [id number] Date(s): 09/20/19 - 09/30/19 [facility] [address] [place] [address]- [facility] Attending Physician: Sam Carter Admitting Physician: AdmtrSam Referring Physician: Admtr, Sam Allergies, Adverse Reactions, Alerts Substance Reaction Severity Status morphine 1 combative CONFUSED OUT OF IT Active 1hallucintations, confusion Immunizations Given and Recorded Vaccine Date Status Refusal Reason influ virus vac, H1N1, inactive(oldterm) 08/14/09 Given pneumococcal 23-valent vaccine 08/14/09 Given Medications buprenorphine-naloxone 2 mg-0.5 mg sublingual film 2 film, Sublingual, Daily, dissolve under the tongue, 0 Refills, Maintenance, 09/20/19 9:05:00 EST,Film Start Date: 09/20/19 Status: Ordered CeleBREX 200 mg oral capsule 1 capsule = 200 mg, By Mouth, 2 times a day, Stop ibuprofen and meloxicam, # 60 capsule, 0 Refills,Maintenance, 08/31/19 14:03:00 EST, [facility]apsule, [facility], 170, cm, 08/31/19 13:40:00 EST, Height, [...] 07/14/19 10:49:00 EST, Route to Pharmacy Electronically, [facility]/pharmacy #1234, 170, cm, 07/04/19 9:01:00 EST, Height, 59.4, kg, 04/07/19 15:15:00 EDT, Dry Weight Start Date: 07/14/19 Status: Ordered ProAir HFA 90 mcg/inh inhalation aerosol with adapter See Instructions, TAKE 2 PUFFS BY MOUTH EVERY 4 HOURS NEEDED FOR WHEEZE, # 18 Gm, Refills 2, Tot. Refills 2, Soft Stop, 04/19/19 15:30:17 EDT, Instructions Replace Required Details, Route to Pharmacy Electronically, [id number]... Start Date: 04/19/19 Status: Ordered Suboxone 8 mg-2 mg sublingual film Sublingual, Daily, 0 Refills, Maintenance, 04/07/19 15:18:17 EDT Start Date: 04/07/19 Status: Ordered tiZANidine 4 mg oral tablet 4 mg, 1, tablet, By Mouth, Every 8 hours, PRN, # 30 tablet, Refills 0, Tot. Refills 0, Maintenance,as needed for pain, 08/31/19 14:04:00 EST, Route to Pharmacy Electronically, [facility]/pharmacy #1234, 170, cm, 08/31/19 13:40:00 EST, Height, 59.4, kg, 03/20... Start Date: 08/31/19 Status: Ordered traZODone 100 mg oral tablet [...] mass(Confirmed) Active Medial epicondylitis, right elbow(Confirmed) Active Myalgia(Confirmed) Active Preop examination(Confirmed) Active Tobacco use disorder(Confirmed) Active Social History Social History Type Response Smoking Status Current every day karina moore; Type: Cigarettes; Tobacco use times per day: 12 cigerettes a day; Number of years: 35; entered on: 04/16/15 Sex
--- OUTSIDE RECORDS SUMMARY | 2024-03-09 07:27 | XMS_ITS | Continuity of Care Document ---
Author Organization [facility] Address Unknown Care Team Providers Care Tourist Camp Attendant Name Role Phone Tonja TOURE, Jeannette Olivera Primary Care Physicia n Encounter [facility](s): 05/13/21 - 06/12/21 [facility] Allergies, Adverse Reactions, Alerts [...] 84 capsule, 0 Refills, Maintenance, 04/15/21 10:30:00EDT, [facility]/pharmacy #1234, Partial fill upon patient [...]
--- OUTSIDE RECORDS SUMMARY | 2024-03-09 07:27 | XMS_ITS | Continuity of Care Document ---
Author Organization [facility] Adult Address [address] [place] [address]- Care Team Providers Care Teletypesetter Name Role Phone Fanny TOURE, Rhonda Primary Care Physician [facility] Date[facility]s): 11/10/23 - 12/10/23 [facility] [address] [place] [address]- Allergies, Adverse Reactions, Alerts Substance Reaction Severity [...] Refills, Maintenance, 06/09/23 9:12:00 EST, [facility], 170, cm, 06/03/23 14:00:00 EST, Height, 51, kg, 06/03/23 14:00:00 EST, Dry Weight Start Date: 06/09/23 Status: Ordered atorvastatin 20 mg oral tablet 1 tablet, By Mouth, Daily, # 90 tablet, 1 Refills, Maintenance, 07/29/23 9:02:00 EST, [facility], 170, cm, 06/23/23 10:13:00 EST, Height, 51, kg, 06/03/23 14:00:00 EST, Dry Weight Start Date: 07/29/23 Status: Ordered celecoxib 200 mg oral capsule 1 capsule = 200 mg, By Mouth, 2 times a day, # 14 capsule, 0 Refills, Maintenance, 06/04/23 13:40:00 EST, Capsule, [facility], Partial fill upon patient [...] 06/04/23 13:40:00 EST, Route to Pharmacy Electronically, [facility], Partial fill uponpatient request if the [...] Unknown, 5 Refills, Maintenance, 12/11/22 19:25:00 EDT, [facility] ST[facility] [address]17, 90, INSTILL 2 SPRAYS INTO EACH NOSTRIL 3 TIMES A DAY NEEDED FOR CONGESTION, 1... Start Date: 12/11/22 Status: Ordered lisinopril 10 mg oral tablet 1, tablet, By Mouth, Daily, # 90 tablet, Refills 1, Maintenance, 09/07/23 9:20:00 EST, Route to Pharmacy Electronically, [facility] 63144, 170, cm, 07/29/23 14:04:00 EST, Height, 51, kg, 06/03/23 14:00:00 EST, Dry Weight Start Date: 09/07/23 Status: Ordered metoprolol 25 mg oral tablet 12.5 mg, 0.5, tablet, By Mouth, Every 12 hours, # 30 tablet, Refills 0, Tot. Refills 0, Maintenance, 06/04/23 13:43:00 EST, Route to Pharmacy Electronically, [facility], Partial fill upon patient request if the prescription is for a sche... Start Date: 06/04/23 Stop Date: 07/04/23 Status: Ordered nicotine 14 mg/24 hr transdermal film, extended release 1 patch, Topically, Daily, # 28 patch, 0 Refills, Maintenance, 07/27/23 14:23:00 EST, [facility] STORE 62997, 28, APPLY 1 PATCH TOPICALLY DAILY, 170, cm, 06/23/23 10:13:00 EST, Height, 51, kg, 06/03/23 14:00:00 EST, Dry Weight Start Date: 07/27/23 Status: Ordered oxyCODONE 10 mg oral tablet 1 tablet = 10 mg, By Mouth, Every 6 hours, PRN as needed for pain, microfilm technician assessed fill 12/08/23, # 112tablet, 0 Refills, Maintenance, 12/07/23 12:05:00 EDT, Tablet, [facility]/pharmacy #1972, Partial fill upon patient request if the prescription is for a sched... Start Date: 12/07/23 Stop Date: 01/04/24 Status: Ordered OxyCONTIN 20 mg oral tablet, extended release 20 mg, 1, tablet, By Mouth, Every 12 hours, microfilm technician chacked fill 12/08/23, # 56 tablet, Refills 0, Tot. Refills 0, Maintenance, 12/07/23 12:05:00 EDT, Route to Pharmacy Electronically, [facility]/pharmacy #1972,Partial fill upon patient request if the prescripti... Start Date: 12/07/23 Stop Date: 01/04/24 Status: Ordered Vasile See Instructions, # 1 [...] Confirmed Active Tobacco use disorder Confirmed Active 38172 r lung wedge resection Social History Social History Type Response Smoking Status Former smoker, quit more than 30 days ago; Total pack years: 45; entered on: 09/17/23 Sex Patient Care team information Care Team Personnel Name: Aurelia Yang RN Position: [facility] RN Member Role: Primary Care Nurse Name: Rhonda Escobedo NP Position: [facility] PCO Associate Professional Member Role: PCP Address: Address: [address] [place] [address], [address] [place], [place] [address] Name: Yue Delgado RN Position: [facility] RN Member Role: Primary Care Nurse Name: Debo Gagnon Position: S RN Member Role: Primary Care Nurse Name: Lisa Awad RN Position: S RN Member Role: Primary Care Nurse Name: Elly Rodriges RN Position: [facility] SN RN Member Role: Primary Care Nurse Name: Nilda Pop RN Position: S RN Member Role: Primary Care Nurse Care Team Related Persons Name: CHARLINE DIOP Address: [place] [address] Name: ELDER ANDERSON Address: home [address] [place] [address] Name: MAEGAN ANDERSON Address: home [address] [place] [address]
--- OUTSIDE RECORDS SUMMARY | 2024-03-09 07:27 | XMS_ITS | Continuity of Care Document ---
Author Organization [facility] Adult Address [address] [place] [address]- Care Team Providers Care Lactation Specialist Name Role Phone Fanny TOURE, Rhonda Primary Care Physician [facility] Date[facility]s): 02/06/23 - 03/08/23 [facility] [address] [place] [address]- Attending Physician: Sam Carter Admitting Physician: AdmSam enriquez Referring Physician: AdmtrSam Allergies, Adverse Reactions, Alerts [...] tablet, 1 Refills, Maintenance, 12/04/22 8:21:00 EDT, [facility]/pharmacy #1972, 170, cm, 08/05/22 8:05:00 EST, Height, 50, kg, 11/15/21 11:23:00 EDT, Dry Weight Start Date: 12/04/22 Status: Ordered Anusol-HC 2.5% cream with applicator 1 application, Rectally, 2 times a day, # 30 Gm, 1 Refills, Maintenance, 09/24/21 13:25:00 EST, Cream, [facility]/pharmacy #1234, Partial fill upon patient request if the prescription is for a schedule II opioid drug., 1 application Rectally 2 times a day, 1... Start Date: 09/24/21 Status: Ordered Anusol-HC 2.5% cream with applicator 1 application, Rectally, 2 times a day, # 30 Gm, 1 Refills, Maintenance, 06/27/21 14:24:00 EST, Cream, [facility]/pharmacy #1234, Partial fill upon patient request if the prescription is for a schedule II opioid drug., 1 application Rectally 2 times a day, 1... Start Date: 06/27/21 Status: Ordered atorvastatin 20 mg oral tablet 1 tablet = 20 mg, By Mouth, Daily, for 90 days, # 90 tablet, 1 Refills, Physician Stop 06/13/23 11:17:00 EST, 12/15/22 11:17:00 EDT, [facility]/pharmacy #1972, 170, cm, 08/05/22 8:05:00 EST, Height, 50, kg,11/15/21 11:23:00 EDT, Dry Weight Start Date: 12/15/22 Stop Date: 06/13/23 Status: Ordered atorvastatin 20 mg oral tablet See Instructions, TAKE 1 TABLET BY MOUTH EVERY DAY, # 90 tablet, 1 Refills, Maintenance, 08/05/22 7:46:00 EST, [facility], 170, cm, 08/05/22 7:32:00 EST, Height, 50, kg, 11/15/21 11:23:00 EDT, Dry Weight Start Date: 08/05/22 Status: Ordered atorvastatin 20 mg oral tablet 1 tablet = 20 mg, By Mouth, Daily, # 30 tablet, 5 Refills, Maintenance, 11/17/21 19:20:00 EDT, Tablet, [facility]/pharmacy #1234, Partial fill upon patient request if the prescription is for a schedule II opioid drug., 170, cm, 11/15/21 11:23:00 EDT, Height,... Start Date: 11/17/21 Status: Ordered Back Brace See Instructions, # 1 each, Refills 0, Tot. Refills 0, Maintenance, Use for low back support, 07/06/20 14:42:00 EST, Supply Start Date: 07/06/20 Status: Ordered cholecalciferol 50,000 intl units oral capsule 1 capsule = 50,000 International_Units, By Mouth, Every 7 days, # 13 capsule, 3 Refills, Maintenance, 02/08/23 9:24:00 EDT, Capsule, [facility]/pharmacy #1972, Partial fill upon patient request, 170, [...] Equal numbers chocolate and strawberry. Dx achalasia, 08/12/22 11:28:00 EST, Supply Start Date: 08/12/22 Status: Ordered Home Blood Pressure Monitor See Instructions, # 1 each, Maintenance, Use to check blood pressure at home., 03/06/21 11:40:00 EDT, Supply Start Date: 03/06/21 Status: Ordered hydrocortisone 2.5% topical cream 1 application, Topically, 3 times a day, # 30 Gm, 2 Refills, Maintenance, 09/24/21 11:18:00 EST, Cream, [facility]/pharmacy #1234, Partial fill upon patient request if the prescription is for a schedule II opioid drug., 1 application Topically 3 times a day,... Start Date: 09/24/21 Status: Ordered hydrocortisone topical 25 mg suppository 1 supp = 25 mg, Rectally, 2 times a day, # 28 supp, 0 Refills, Maintenance, 10/02/21 13:05:00 EDT, Suppository, [facility]/pharmacy #1234, Partial fill upon patient request if the prescription is for a schedule II opioid drug., 170, cm, 10/02/21 10:36:00 EDT... Start Date: 10/02/21 Stop Date: 10/16/21 Status: Ordered ipratropium nasal 21 mcg/inh spray See Instructions, INSTILL 2 SPRAYS INTO EACH NOSTRIL 3 TIMES A DAY NEEDED FOR CONGESTION, # 60 Unknown, 5 Refills, Maintenance, 12/11/22 19:25:00 EDT, [facility] [address], 90, INSTILL 2 SPRAYS INTO EACH NOSTRIL 3 TIMES A DAY NEEDED FOR CONGESTION, 1... Start Date: 12/11/22 Status: Ordered lisinopril 10 mg oral tablet See Instructions, TAKE 1 TABLET BY MOUTH EVERY DAY, # 90 tablet, Refills 0, Maintenance, 02/06/23 8:55:00 EDT, Instructions Replace Required Details, Route to Pharmacy Electronically, [id number], 170, cm, 08/05/22 8:05:00 EST, Height, 50, kg, 04/... Start Date: 02/06/23 Status: Ordered lisinopril 10 mg oral tablet 1, tablet, By Mouth, Daily, # 90 tablet, Refills 0, Tot. Refills 0, Maintenance, 02/05/23 15:07:00 EDT, Route to Pharmacy Electronically, [facility]/pharmacy #1972, 170, cm, 08/05/22 8:05:00 EST, Height, 50, kg, 11/15/21 11:23:00 EDT, Dry Weight Start Date: 02/05/23 Status: Ordered nicotine 14 mg/24 hr transdermal film, extended release 1 patch, Topically, Daily, for 14 days, # 14 patch, 1 Refills, Acute 04/02/23 12:29:00 EDT, 03/05/23 12:29:00 EDT, Patch, [facility], Partial fill upon patient request if the prescription is for a schedule II opioid drug., 1 patch Topically Da... Start Date: 03/05/23 Stop Date: 04/02/23 Status: Ordered Nicotrol Inhaler 10 mg inhalation device See Instructions, USE 6 CARTRIDGES PER DAY, # 168 Unknown, 0 Refills, Maintenance, 02/03/22 9:21:00EDT, [facility], 28, USE 6 CARTRIDGES PER DAY, 170, cm, 12/31/21 8:21:00 EDT, Height, 50, kg, 11/15/21 11:23:00 EDT, Dry Weight Start Date: 02/03/22 Status: Ordered oxyCODONE 5 mg oral tablet 10 mg, 2, tablet, By Mouth, Every 6 hours, PRN, PARBOILER checked. Fill on 03/05/23, # 224 tablet, Refills0, Tot. Refills 0, Maintenance, as needed for pain, 02/21/23 8:44:00 EDT, Route to [facility]ically, [facility], Partial fill upon patie... Start Date: 02/21/23 Stop Date: 03/21/23 Status: Ordered OxyCONTIN 10 mg oral tablet, extended release 10 mg, 1, tablet, By Mouth, Every 12 hours, PARBOILER checked. Fill on 03/05/23, # 56 tablet, Refills 0, Tot. Refills 0, Maintenance, 02/21/23 8:44:00 EDT, Route to [facility], [facility], in addition to his IR oxycodone, 170, cm, ... Start Date: 02/21/23 Stop Date: 03/21/23 Status: Ordered Ventolin HFA 108 mcg/inh inhalation aerosol with adapter See Instructions, INHALE 1 PUFF 4 TIMES A DAY NEEDED FOR COUGH, # 18 each, 5 Refills, Maintenance, 12/11/22 19:25:00 EDT, [facility], 170, cm, 08/05/22 8:05:00 EST, Height, 50, [...] Confirmed Active Tobacco use disorder Confirmed Active Procedures Procedure Date Related Diagnosis Body Site Status Arthroscopy of knee with med ial and lateral meniscectomy [address] james Social History Social History Type Response Tobacco Other: Smokes about 12 cigarettes daily. Prior to this, smoking about 1 PPD for 35 years.. Sex EKG study * Event Display: EKG Authored Date: Radiology * Event Display: MRI Knee, Non- BH Authored Date: Patient Care team information Care Team Personnel Name: Rhonda Escobedo NP Position: [facility] PCO Associate Professional Member Role: PCP Address: Address: [address] [place] [address], [address] [place] [address]- Name: Lisa Awad RN Position: [facility] RN Member Role: Primary Care Nurse Name: Elly Rodriges RN Position: [facility] RN Member Role: Primary Care Nurse Care Team Related Persons Name: DIOP CHARLINE Address: [place] [address] Name: ELDER ANDERSON Address: home [address] [place] [address] Name: MAEGAN ANDERSON Address: home [address] [place] [address]
--- OUTSIDE RECORDS SUMMARY | 2024-03-09 07:27 | XMS_ITS | Continuity of Care Document ---
Author Organization [facility] Adult Address [address] [place] [address]- Care Team Providers Care Principal Systems Engineer Name Role Phone Tonja TOURE, Jeannette Olivera Primary Care Physicia n [facility] Date[facility]s): 12/05/20 - 01/04/21 [facility] [address] [place] [address]- Allergies, Adverse Reactions, Alerts Substance Reaction Severity [...] 12/31/20 9:59:00 EDT, Route to Pharmacy Electronically, [facility]/pharmacy #1234, Partialfill upon patient request if the [...] Refills, Maintenance, 08/23/20 13:22:00 EST, CR Tablet, [facility]/pharmacy #1234, Partial fill upon patient request if the prescription is for a schedule II opioid drug., 170, cm, 08/21/20 6:19:00 EST, Heigh... Start Date: 08/23/20 Status: Ordered ProAir HFA 90 mcg/inh inhalation aerosol 2 puffs, Inhalation, Every 4 hours, PRN NEEDED FOR WHEEZE, # 8.5 Unknown, 5 Refills, Maintenance, 10/15/20 8:28:00 EDT, [facility], 17, 2 puffs Inhalation [...]
--- OUTSIDE RECORDS SUMMARY | 2024-03-09 07:27 | XMS_ITS | Continuity of Care Document ---
Author Organization [facility] Adult Address [address] [place] [address]- Care Team Providers Care Ship Yard Electrical Person Name Role Phone Fanny TOURE, Rhonda Primary Care Physician [phone] [facility] 09/24/23 - 10/24/23 [facility] Adult [address] [place] [address]- Allergies, Adverse Reactions, Alerts Substance Reaction Severity [...] Refills, Maintenance, 06/09/23 9:12:00 EST, [facility], 170, cm, 06/03/23 14:00:00 EST, Height, 51, kg, 06/03/23 14:00:00 EST, Dry Weight Start Date: 06/09/23 Status: Ordered atorvastatin 20 mg oral tablet 1 tablet, By Mouth, Daily, # 90 tablet, 1 Refills, Maintenance, 07/29/23 9:02:00 EST, [facility], 170, cm, 06/23/23 10:13:00 EST, Height, 51, [...] EST, Route to Pharmacy Electronically, [facility], Partial fill uponpatient request if [...] Unknown, 5 Refills, Maintenance, 12/11/22 19:25:00 EDT, [facility], 90, INSTILL 2 SPRAYS INTO EACH NOSTRIL 3 TIMES A DAY NEEDED FOR CONGESTION, 1... Start Date: 12/11/22 Status: Ordered lisinopril 10 mg oral tablet 1, tablet, By Mouth, Daily, # 90 tablet, Refills 1, Maintenance, 09/07/23 9:20:00 EST, Route to Pharmacy Electronically, [facility] 266[facility], 170, cm, 07/29/23 14:04:00 EST, Height, 51, [...] patch, 0 Refills, Maintenance, 07/27/23 14:23:00 EST, [facility] ST[facility] 05382, 28, APPLY 1 PATCH TOPICALLY DAILY, 170, cm, 06/23/23 10:13:00 EST, Height, 51, kg, 06/03/23 14:00:00 EST, Dry Weight Start Date: 07/27/23 Status: Ordered oxyCODONE 10 mg oral tablet 1 tablet = 10 mg, By Mouth, Every 6 hours, PRN as needed for pain, parts chaser assessed fill 10/13/23, # 112tablet, 0 Refills, Maintenance, 10/12/23 17:07:00 EDT, Tablet, [facility]/pharmacy #1972, Partial fill upon patient request if the prescription is for a sched... Start Date: 10/12/23 Stop Date: 11/09/23 Status: Ordered OxyCONTIN 20 mg oral tablet, extended release 20 mg, 1, tablet, By Mouth, Every 12 hours, parts chaser chacked fill 10/13/23, # 56 tablet, Refills 0, Tot. Refills 0, Maintenance, 10/12/23 17:07:00 EDT, Route to Pharmacy Electronically, [facility]/pharmacy #1972,Partial fill upon patient request if [...] Confirmed Active Tobacco use disorder Confirmed Active 82683 r lung wedge resection Social History Social History Type Response Smoking Status Former smoker, quit more than 30 days ago; Total pack years: 45; entered on: 09/17/23 Sex Patient Care team information Care Team Personnel Name: Aurelia Yang RN Position: S RN Member Role: Primary Care Nurse Name: Rhonda Escobedo NP Position: [facility] PCO Associate Professional Member Role: PCP Address: Address: [address] [place] [address], 3rd Floor [place], [place] [address] Name: Yue Delgado RN Position: S RN Member Role: Primary Care Nurse Name: Debo Gagnon Position: S RN Member Role: Primary Care Nurse Name: Lisa Awad RN Position: S RN Member Role: Primary Care Nurse Name: Elly Rodriges RN Position: [facility] RN Member Role: Primary Care Nurse Name: Nilda Pop RN Position: S RN Member Role: Primary Care Nurse Care Team Related Persons Name: CHARLINE DIOP Address: [place] [address] Name: ELDER ANDERSON Address: home [address] [place] [address] Name: MAEGAN ANDERSON Address: home [address] [place] [address]
--- OUTSIDE RECORDS SUMMARY | 2024-03-09 07:27 | XMS_ITS | Continuity of Care Document ---
Author Organization [facility] Address Unknown Care Team Providers Care Layout Operator Name Role Phone Tonja PORCELAIN FINISH SPRAYER, Jeannette Olivera Primary Care Physicia n [facility]s): 09[facility]02/21 - 10/13/21 [facility] Attending Physician: Breann TOURE, Chasidy Boston Referring Physician: Tonja TOURE, Jeannette Olivera Allergies, Adverse Reactions, Alerts Substance Reaction Severity [...] 08/14/09 Given tetanus/diphtheria/pertussis, acel(Tdap) 07/04/08 Recorded Medications amitriptyline 10 mg oral tablet 10 mg, 1, tablet, By Mouth, Daily at bedtime, # 30 tablet, Refills 0, Maintenance, 09/16/21 14:16:00 EST, Partial fill upon patient request if the prescription is for a schedule II opioid drug. Start Date: 09/16/21 Status: Ordered Anusol-HC 2.5% cream with applicator [...] 5 Refills, Maintenance, 06/19/21 8:09:00 EST, [facility]t, [facility], Partial fill upon patient [...] Date: 10/02/21 Stop Date: 10/16/21 Status: Ordered lisinopril 40 mg oral tablet 1 tablet = 40 mg, By Mouth, Daily, # 30 tablet, 5 Refills, Maintenance, 07/03/21 10:04:00 EST, Tablet, [facility], Partial fill upon patient request if the prescription is for a schedule II opioid drug., 170, cm, 06/27/21 14:20:00 EST, Height,... Start Date: 07/03/21 Status: Ordered Nicotrol Inhaler 10 mg inhalation device See Instructions, use 6 cartridges per day, # 84 capsule, 0 Refills, Maintenance, 04/15/21 10:30:00EDT, [facility]/pharmacy #1234, Partial fill upon patient request if the prescription is for a schedule IIopioid drug., use 6 cartridges per day, 170, cm, 09... Start Date: 04/15/21 Status: Ordered ProAir HFA 90 mcg/inh inhalation aerosol 2 puffs, Inhalation, Every 4 hours, PRN NEEDED FOR WHEEZE, # 1 each, 5 Refills, Maintenance, 07/02/21 8:53:00 EST, [facility]/pharmacy #1234, 2 puffs Inhalation Every 4 hours,PRN: NEEDED FOR WHEEZE, 170, cm, 06/27/21 14:20:00 EST, Height, 59, kg, 05/09/... Start Date: 07/02/21 Status: Ordered Suboxone 8 mg-2 mg sublingual film 2 film, Sublingual, Daily, dissolve under the tongue, 0 Refills, Maintenance, 10/02/21 10:37:00 EDT, Film, Partial fill upon patient request if the prescription is for a schedule II opioid drug. Start Date: 10/02/21 Status: Ordered Problem List Condition Effective Dates [...]
--- OUTSIDE RECORDS SUMMARY | 2024-03-09 07:27 | XMS_ITS | Continuity of Care Document ---
Author Organization [facility] Adult Address [address] [place] [address]- Care Team Providers Care Service Counter Cashier Name Role Phone Tonja TOURE, Jeannette Olivera Primary Care Physicia n Encounter [facility] Date(s): 08/12/21 - 08/19/21 [facility] Adult [address] [place] [address]- Attending Physician: Douglas Parker MD Allergies, Adverse Reactions, Alerts Substance Reaction [...] 1 Refills, Maintenance, 06/27/21 14:24:00 EST, Cream, [facility]/pharmacy #1234, Partial fill upon patient request if the prescription is for a schedule II opioid drug., 1 application Rectally 2 times a day, 1... Start Date: 06/27/21 Status: Ordered Anusol-HC 2.5% cream with applicator 1 application, Rectally, 2 times a day, # 30 Gm, 1 Refills, Maintenance, 06/27/21 14:24:00 EST, Cream, [facility]/pharmacy #1234, Partial fill upon patient request if the prescription is for a schedule II opioid drug., 1 application Rectally 2 times a day, 1... Start Date: 06/27/21 Status: Ordered atorvastatin 20 mg oral tablet 1 tablet = 20 mg, By Mouth, Daily, # 30 tablet, 5 Refills, Maintenance, 06/19/21 8:09:00 EST, Tablet, [facility]/pharmacy #1234, Partial fill upon patient [...] 5 Refills, Maintenance, 07/03/21 10:04:00 EST, Tablet, [facility]/pharmacy #1234, Partial fill upon patient [...]
--- OUTSIDE RECORDS SUMMARY | 2024-03-09 07:27 | XMS_ITS | Continuity of Care Document ---
Author Organization [facility] Adult Address [address] [place] [address]- Care Team Providers Care Filing Clerk Name Role Phone Fanny TOURE, Rhonda Primary Care Physician [facility] Date[facility]s): 02/03/24 - 03/04/24 [facility] Adult [address] [place] [address]- Allergies, Adverse Reactions, Alerts Substance Reaction Severity [...] Refills, Maintenance, 01/28/24 14:32:00 EDT, [facility], 170, cm, 01/08/24 10:04:00 EDT, Height, 51, kg, 06/03/23 14:00:00 EST, Dry Weight Start Date: 01/28/24 Status: Ordered atorvastatin 20 mg oral tablet 1 tablet, By Mouth, Daily, # 90 tablet, 1 Refills, Maintenance, 07/29/23 9:02:00 EST, [facility], 170, cm, 06/23/23 10:13:00 EST, Height, 51, kg, 06/03/23 14:00:00 EST, Dry Weight Start Date: 07/29/23 Status: Ordered celecoxib 200 mg oral capsule 1 capsule = 200 mg, By Mouth, 2 times a day, # 14 capsule, 0 Refills, Maintenance, 06/04/23 13:40:00 EST, Capsule, [facility], Partial fill upon patient [...] Unknown, 5 Refills, Maintenance, 12/11/22 19:25:00 EDT, [facility], 90, INSTILL 2 SPRAYS INTO EACH NOSTRIL 3 TIMES A DAY NEEDED FOR CONGESTION, 1... Start Date: 12/11/22 Status: Ordered lisinopril 10 mg oral tablet 1, tablet, By Mouth, Daily, # 90 tablet, Refills 1, Maintenance, 09/07/23 9:20:00 EST, Route to Pharmacy Electronically, [facility], 170, cm, 07/29/23 14:04:00 EST, Height, 51, kg, 06/03/23 14:00:00 EST, Dry Weight Start Date: 09/07/23 Status: Ordered metoprolol 25 mg oral tablet 12.5 mg, 0.5, tablet, By Mouth, Every 12 hours, # 30 tablet, Refills 0, Tot. Refills 0, Maintenance, 06/04/23 13:43:00 EST, Route to Pharmacy Electronically, [facility], Partial fill upon patient request if the prescription is for a sche... Start Date: 06/04/23 Stop Date: 07/04/23 Status: Ordered nicotine 14 mg/24 hr transdermal film, extended release 1 patch, Topically, Daily, # 28 patch, 0 Refills, Maintenance, 07/27/23 14:23:00 EST, [facility], 28, APPLY 1 PATCH TOPICALLY DAILY, 170, cm, 06/23/23 10:13:00 EST, Height, 51, kg, 06/03/23 14:00:00 EST, Dry Weight Start Date: 07/27/23 Status: Ordered oxyCODONE 10 mg oral tablet 1 tablet = 10 mg, By Mouth, Every 6 hours, PRN as needed for pain, emergency medicine nurse practitioner assessed fill 03/06/24, # 28 tablet, 0 Refills, Maintenance, 03/04/24 12:02:00 EDT, Tablet, [facility]/pharmacy #1972, Partial fill uponpatient request if the prescription is for a schedu... Start Date: 03/04/24 Stop Date: 03/11/24 Status: Ordered OxyCONTIN 20 mg oral tablet, extended release 20 mg, 1, tablet, By Mouth, Every 12 hours, emergency medicine nurse practitioner chacked fill 03/06/24, # 14 tablet, Refills 0, Tot. Refills 0, Maintenance, 03/04/24 12:02:00 EDT, Route to Pharmacy Electronically, [facility]/pharmacy #1972,Partial fill upon patient request if the prescripti... Start Date: 03/04/24 Stop Date: 03/11/24 Status: Ordered Vasile See Instructions, # 1 [...] Confirmed Active Tobacco use disorder Confirmed Active 31950 r lung wedge resection Social History Social History Type Response Smoking Status Former smoker, quit more than 30 days ago; Total pack years: 45; entered on: 09/17/23 Sex Patient Care team information Care Team Personnel Name: Aurelia Yang RN Position: [facility] RN Member Role: Primary Care Nurse Name: Rhonda Escobedo NP Position: [facility] PCO Associate Professional Member Role: PCP Address: Address: [address] [place] [address], 3rd Floor [place], [place] [address] Name: Yue Delgado RN Position: [facility] RN Member Role: Primary Care Nurse Name: Debo Gagnon RN Position: [facility] RN Member Role: Primary Care Nurse Name: Lisa Awad RN Position: [facility] RN Member Role: Primary Care Nurse Name: Elly Rodriges RN Position: [facility] RN Member Role: Primary Care Nurse Name: Nilda Pop RN Position: S RN Member Role: Primary Care Nurse Care Team Related Persons Name: REVA DIOPFER Address: [place] [address] Name: ELDER ANDERSON Address: home [address] [place] [address] Name: MAEGAN ANDERSON Address: home [address] [place] [address]
--- OUTSIDE RECORDS SUMMARY | 2024-03-09 07:27 | XMS_ITS | Continuity of Care Document ---
Author Organization [facility] Adult Address [address] [place] [address]- Care Team Providers Care Film Laboratory Technician Name Role Phone Tonja TOURE, Jeannette Olivera Primary Care Physicia n [facility]s): 01/23/21 - 02/22/21 [facility] Adult [address] [place] [address]- Allergies, Adverse Reactions, Alerts Substance Reaction Severity [...] Status: Ordered lisinopril 5 mg oral tablet 1, tablet, By Mouth, Daily, INSTR:THIS IS AN INCREASE IN DOSE, # 30 tablet, Refills 2, Tot. Refills0, Maintenance, 02/21/21 16:24:00 EDT, Route to Pharmacy Electronically, [facility] 06283, 170, cm, 12/31/20 9:56:00 EDT, Height, 58, kg, 12/06/20 6:46:... Start Date: 02/21/21 Status: Ordered Mapap Arthritis Pain 650 mg [...] Refills, Maintenance, 08/23/20 13:22:00 EST, CR Tablet, [facility]/pharmacy #1234, Partial fill upon patient request if [...]
--- OUTSIDE RECORDS SUMMARY | 2024-03-09 07:28 | XMS_ITS | Continuity of Care Document ---
Author Organization [facility] Adult Address [address] [place] [address]- Care Team Providers Care Community Case Manager Name Role Phone Fanny TOURE, Rhonda Primary Care Physician [phone] [facility]s): 01/28/24 - 02/27/24 [facility] Adult [address] [place] [address]- Allergies, Adverse Reactions, Alerts Substance Reaction Severity [...] Refills, Maintenance, 01/28/24 14:32:00 EDT, [facility], 170, cm, 01/08/24 10:04:00 EDT, Height, 51, kg, 06/03/23 14:00:00 EST, Dry Weight Start Date: 01/28/24 Status: Ordered atorvastatin 20 mg oral tablet 1 tablet, By Mouth, Daily, # 90 tablet, 1 Refills, Maintenance, 07/29/23 9:02:00 EST, [facility], 170, cm, 06/23/23 10:13:00 EST, Height, 51, kg, 06/03/23 14:00:00 EST, Dry Weight Start Date: 07/29/23 Status: Ordered celecoxib 200 mg oral capsule 1 capsule = 200 mg, By Mouth, 2 times a day, # 14 capsule, 0 Refills, Maintenance, 06/04/23 13:40:00 EST, Capsule, [facility], Partial fill upon patient [...] Unknown, 5 Refills, Maintenance, 12/11/22 19:25:00 EDT, [facility] 8[facility], 90, INSTILL 2 SPRAYS INTO EACH NOSTRIL 3 TIMES A DAY NEEDED FOR CONGESTION, 1... Start Date: 12/11/22 Status: Ordered lisinopril 10 mg oral tablet 1, tablet, By Mouth, Daily, # 90 tablet, Refills 1, Maintenance, 09/07/23 9:20:00 EST, Route to Pharmacy Electronically, [facility], 170, cm, 07/29/23 14:04:00 EST, Height, 51, kg, 06/03/23 14:00:00 EST, Dry Weight Start Date: 09/07/23 Status: Ordered metoprolol 25 mg oral tablet 12.5 mg, 0.5, tablet, By Mouth, Every 12 hours, # 30 tablet, Refills 0, Tot. Refills 0, Maintenance, 06/04/23 13:43:00 EST, Route to Pharmacy Electronically, [facility], Partial fill upon patient request if the prescription is for a sche... Start Date: 06/04/23 Stop Date: 07/04/23 Status: Ordered nicotine 14 mg/24 hr transdermal film, extended release 1 patch, Topically, Daily, # 28 patch, 0 Refills, Maintenance, 07/27/23 14:23:00 EST, [facility], 28, APPLY 1 PATCH TOPICALLY DAILY, 170, cm, 06/23/23 10:13:00 EST, Height, 51, kg, 06/03/23 14:00:00 EST, Dry Weight Start Date: 07/27/23 Status: Ordered oxyCODONE 10 mg oral tablet 1 tablet = 10 mg, By Mouth, Every 6 hours, PRN as needed for pain, esthetician makeup artist assessed fill 02/02/24, # 112tablet, 0 Refills, Maintenance, 01/26/24 8:16:00 EDT, Tablet, [facility]/pharmacy #1972, Partial fill uponpatient request if the prescription is for a schedu... Start Date: 01/26/24 Stop Date: 02/23/24 Status: Ordered OxyCONTIN 20 mg oral tablet, extended release 20 mg, 1, tablet, By Mouth, Every 12 hours, esthetician makeup artist chacked fill 02/02/24, # 56 tablet, Refills 0, Tot. Refills 0, Maintenance, 01/26/24 8:16:00 EDT, Route to Pharmacy Electronically, [facility]/pharmacy #1972, Partial fill upon patient request [...] Confirmed Active Tobacco use disorder Confirmed Active 15730 r lung wedge resection Social History Social History Type Response Smoking Status Former smoker, quit more than 30 days ago; Total pack years: 45; entered on: 09/17/23 Sex Patient Care team information Care Team Personnel Name: Aurelia Yang RN Position: S RN Member Role: Primary Care Nurse Name: Rhonda Escobedo NP Position: [facility]O Associate Professional Member Role: PCP Address: Address: [address] [place] [address], 3rd [place] [address]- Name: Yue Delgado RN Position: [facility] RN Member Role: Primary Care Nurse Name: Debo Gagnon RN Position: [facility] RN Member Role: Primary Care Nurse Name: Lisa Awad RN Position: [facility] RN Member Role: Primary Care Nurse Name: Elly Rodriges RN Position: [facility] RN Member Role: Primary Care Nurse Name: Nilda Pop RN Position: S RN Member Role: Primary Care Nurse Care Team Related Persons Name: CHARLINE DIOP Address: [place] [address] Name: ELDER ANDERSON Address: [address] [place] [address] Name: MAEGAN ANDERSON Address: home [address] [place] [address]
--- OUTSIDE RECORDS SUMMARY | 2024-03-09 07:28 | XMS_ITS | Continuity of Care Document ---
Author Organization [facility] Address [address] [place] [address]- Care Team Providers Care Director Construction Services Name Role Phone Fanny TOURE, Rhonda Primary Care Physician [facility]s): 03/02/23 - 04/01/23 [facility] [address] [place] [address]- Allergies, Adverse Reactions, Alerts Substance Reaction Severity [...] tablet, 1 Refills, Maintenance, 12/04/22 8:21:00 EDT, [facility]/pharmacy #1972, 170, cm, 08/05/22 8:05:00 EST, Height, 50, kg, 11/15/21 11:23:00 EDT, Dry Weight Start Date: 12/04/22 Status: Ordered Anusol-HC 2.5% cream with applicator 1 application, Rectally, 2 times a day, # 30 Gm, 1 Refills, Maintenance, 09/24/21 13:25:00 EST, Cream, [facility]/pharmacy #1234, Partial fill upon patient request if the prescription is for a schedule II opioid drug., 1 application Rectally 2 times a day, 1... Start Date: 09/24/21 Status: Ordered Anusol-HC 2.5% cream with applicator 1 application, Rectally, 2 times a day, # 30 Gm, 1 Refills, Maintenance, 06/27/21 14:24:00 EST, Cream, [facility]/pharmacy #1234, Partial fill upon patient request if the prescription is for a schedule II opioid drug., 1 application Rectally 2 times a day, 1... Start Date: 06/27/21 Status: Ordered atorvastatin 20 mg oral tablet 1 tablet = 20 mg, By Mouth, Daily, for 90 days, # 90 tablet, 1 Refills, Physician Stop 06/13/23 11:17:00 EST, 12/15/22 11:17:00 EDT, [facility]/pharmacy #1972, 170, cm, 08/05/22 8:05:00 EST, Height, 50, kg,11/15/21 11:23:00 EDT, Dry Weight Start Date: 12/15/22 Stop Date: 06/13/23 Status: Ordered atorvastatin 20 mg oral tablet See Instructions, TAKE 1 TABLET BY MOUTH EVERY DAY, # 90 tablet, 1 Refills, Maintenance, 08/05/22 7:46:00 EST, [facility], 170, cm, 08/05/22 7:32:00 EST, Height, 50, [...] 0 Refills, Maintenance, 10/02/21 13:05:00 EDT, Suppository, [facility]/pharmacy #1234, Partial fill upon patient request if the prescription is for a schedule II opioid drug., 170, cm, 10/02/21 10:36:00 EDT... Start Date: 10/02/21 Stop Date: 10/16/21 Status: Ordered ipratropium nasal 21 mcg/inh spray See Instructions, INSTILL 2 SPRAYS INTO EACH NOSTRIL 3 TIMES A DAY NEEDED FOR CONGESTION, # 60 Unknown, 5 Refills, Maintenance, 12/11/22 19:25:00 EDT, [facility] 97240, 90, INSTILL 2 SPRAYS INTO EACH NOSTRIL 3 TIMES A DAY NEEDED FOR CONGESTION, 1... Start Date: 12/11/22 Status: Ordered lisinopril 10 mg oral tablet See Instructions, TAKE 1 TABLET BY MOUTH EVERY DAY, # 90 tablet, Refills 0, Maintenance, 02/06/23 8:55:00 EDT, Instructions Replace Required Details, Route to Pharmacy Electronically, [facility] 28237, 170, cm, 08/05/22 8:05:00 EST, Height, 50, kg, 04... Start Date: 02/06/23 Status: Ordered lisinopril 10 mg oral tablet 1, tablet, By Mouth, Daily, # 90 tablet, Refills 0, Tot. Refills 0, Maintenance, 02/05/23 15:07:00 EDT, Route to Pharmacy Electronically, [facility]/pharmacy #1972, 170, cm, 08/05/22 8:05:00 EST, Height, 50, kg, 11/15/21 11:23:00 EDT, Dry Weight Start Date: 02/05/23 Status: Ordered nicotine 14 mg/24 hr transdermal film, extended release 1 patch, Topically, Daily, for 14 days, # 14 patch, 1 Refills, Acute 04/02/23 12:29:00 EDT, 03/05/23 12:29:00 EDT, Patch, [facility]/pharmacy #1972, Partial fill upon patient request if the prescription is for a schedule II opioid drug., 1 patch Topically Da... Start Date: 03/05/23 Stop Date: 04/02/23 Status: Ordered Nicotrol Inhaler 10 mg inhalation device See Instructions, USE 6 CARTRIDGES PER DAY, # 168 Unknown, 0 Refills, Maintenance, 02/03/22 9:21:00EDT, [facility]/pharmacy #1234, 28, USE 6 CARTRIDGES PER DAY, 170, cm, 12/31/21 8:21:00 EDT, Height, 50, kg, 11/15/21 11:23:00 EDT, Dry Weight Start Date: 02/03/22 Status: Ordered oxyCODONE 5 mg oral tablet 10 mg, 2, tablet, By Mouth, Every 6 hours, PRN, ATTRACTIONS ASSOCIATE checked. Fill on 04/02/23, # 224 tablet, Refills0, Tot. Refills 0, Maintenance, as needed for pain, 03/30/23 20:28:00 EDT, Route to Pharmacy Electronically, [facility]/pharmacy #1972, Partial fill upon chandrika... Start Date: 03/30/23 Stop Date: 04/27/23 Status: Ordered OxyCONTIN 10 mg oral tablet, extended release 10 mg, 1, tablet, By Mouth, Every 12 hours, ATTRACTIONS ASSOCIATE checked. Fill on 04/02/23, # 56 tablet, Refills 0, Tot. Refills 0, Maintenance, 03/30/23 20:28:00 EDT, Route to Pharmacy Electronically, [facility]/pharmacy #1972, in addition to his IR oxycodone, 170, cm, 02/06... Start Date: 03/30/23 Stop Date: 04/27/23 Status: Ordered Ventolin HFA 108 mcg/inh inhalation aerosol with adapter See Instructions, INHALE 1 PUFF 4 TIMES A DAY NEEDED FOR COUGH, # 18 each, 5 Refills, Maintenance, 12/11/22 19:25:00 EDT, [facility] ST[facility] 21944, 170, cm, 08/05/22 8:05:00 EST, Height, 50, [...] Confirmed Active Tobacco use disorder Confirmed Active Social History Social History Type Response Tobacco Other: Smokes about 12 cigarettes daily. Prior to this, smoking about 1 PPD for 35 years.. Sex Patient Care team information Care Team Personnel Name: Rhonda Escobedo NP Position: [facility] PCO Associate Professional Member Role: PCP Address: Address: [address] [place] [address], [address]rd [place] [address]- Name: Lisa Awad RN Position: S RN Member Role: Primary Care Nurse Name: Elly Rodriges RN Position: [facility] RN Member Role: Primary Care Nurse Care Team Related Persons Name: CHARLINE DIOP Address: [place] [address] Name: ELDER ANDERSON Address: home [address] [place] [address] Name: MAEGAN ANDERSON Address: home [address] [place] [address]
--- OUTSIDE RECORDS SUMMARY | 2024-03-09 07:28 | XMS_ITS | Continuity of Care Document ---
Author Organization [facility] Adult Address [address] [place] [address]- Care Team Providers Care Statistical Technician Name Role Phone Tonja TOURE, Jeannette Olivera Primary Care Physicia n [facility] Date[facility]): [facility]21 - 02/14/21 [facility] Adult [address] [place] [address]- Allergies, Adverse Reactions, Alerts Substance Reaction Severity [...] 12/31/20 9:59:00 EDT, Route to Pharmacy Electronically, [facility]/pharmacy #1234, Partialfill upon patient request if the [...] Refills, Maintenance, 08/23/20 13:22:00 EST, CR Tablet, [facility]/pharmacy #1234, Partial fill upon patient request if the prescription is for a schedule II opioid drug., 170, cm, 08/21/20 6:19:00 EST, Heigh... Start Date: 08/23/20 Status: Ordered ProAir HFA 90 mcg/inh inhalation aerosol 2 puffs, Inhalation, Every 4 hours, PRN NEEDED FOR WHEEZE, # 8.5 Unknown, 5 Refills, Maintenance, 10/15/20 8:28:00 EDT, [facility]/pharmacy #1234, 17, 2 puffs Inhalation Every 4 [...]
--- OUTSIDE RECORDS SUMMARY | 2024-03-09 07:28 | XMS_ITS | Continuity of Care Document ---
Author Organization [facility] Address Unknown Care Team Providers Care Metal Model Builder Name Role Phone Tonja TOURE, Jeannette Olivera Primary Care Physicia n Encounter [facility] Date(s): 07/08/21 - 08/07/21 [facility] Allergies, Adverse Reactions, Alerts Substance [...] 1 Refills, Maintenance, 06/27/21 14:24:00 EST, Cream, [facility]/pharmacy #1234, Partial fill upon patient request if the prescription is for a schedule II opioid drug., 1 application Rectally 2 times a day, 1... Start Date: 06/27/21 Status: Ordered atorvastatin 20 mg oral tablet 1 tablet = 20 mg, By Mouth, Daily, # 30 tablet, 5 Refills, Maintenance, 06/19/21 8:09:00 EST, Tablet, [facility]/pharmacy #1234, Partial fill upon patient [...] 5 Refills, Maintenance, 07/03/21 10:04:00 EST, Tablet, [facility]/pharmacy #1234, Partial fill upon patient [...]
--- OUTSIDE RECORDS SUMMARY | 2024-03-09 07:28 | XMS_ITS | Continuity of Care Document ---
Author Organization [facility] Adult Address [address] [place] [address]- Care Team Providers Care Tire Room Supervisor Name Role Phone Fanny TOURE, Rhonda Primary Care Physician [phone] [facility]counter [facility] Date(s): 12/02/21 - 01/01/22 [facility] Adult [address] [place] [phone]- Allergies, Adverse Reactions, Alerts Substance Reaction Severity [...] # 8.5 each, 5 Refills, [facility], 17, INHALE 2 PUFFS EVERY 4 HOURS NEEDED FOR WHEEZING, 170, cm, 11/15/21 11:23:00 EDT, Height, 50, kg, 11/15/21 11:23:00 EDT, Dry Weight Start Date: 11/17/21 Status: Ordered amLODIPine 5 mg oral tablet 1 tablet, By Mouth, Daily, # 90 tablet, 0 Refills, [facility], 170, cm, 11/15/21 11:23:00 EDT,Height, 50, kg, [...] EVERY DAY, # 90 tablet, 1 Refills, [facility], 170, cm, 12/17/21 8:41:00 EDT, Height, 50, [...] Maintenance, 09/24/21 11:18:00 EST, Cream, [facility]/pharmacy #1234, Partial fill upon patient request if [...] 17:07:00 EDT, 12/20/21 17:07:00 EDT, [facility]/pharmacy #1234, Partial fill upon patient request if the prescription is for a schedule II opioid drug., 2... Start Date: 12/20/21 Stop Date: 01/19/22 Status: Ordered lisinopril 10 mg oral tablet 1, tablet, By Mouth, Daily, # 30 tablet, Refills 1, Route to Pharmacy Electronically, [facility] STORE 08676, 170, cm, 12/05/21 10:11:00 EDT, Height, 50, kg, 11/15/21 11:23:00 EDT, Dry Weight Start Date: 12/13/21 Status: Ordered lisinopril 40 mg oral tablet See Instructions, TAKE 1 TABLET BY MOUTH EVERY DAY, # 90 tablet, 1 Refills, [facility] ST[facility] 85149, 170, cm, 12/17/21 8:41:00 EDT, Height, 50, kg, 11/15/21 11:23:00 EDT, Dry Weight Start Date: 12/17/21 Status: Ordered Nicotrol Inhaler 10 mg inhalation device See Instructions, use 6 cartridges per day, # 84 capsule, 0 Refills, Maintenance, 04/15/21 10:30:00EDT, [facility]/pharmacy #1234, Partial fill upon patient request if the prescription is for a schedule IIopioid drug., use 6 cartridges per day, 170, cm, 09... Start Date: 04/15/21 Status: Ordered oxyCODONE 10 mg oral tablet 1 tablet = 10 mg, By Mouth, Every 6 hours, PRN as needed for severe pain, # 120 tablet, 0 Refills, Maintenance, 12/17/21 10:05:00 EDT, Tablet, [facility]/pharmacy #1234, Partial fill upon patient request ifthe prescription is for a schedule II opioid drug.... Start Date: 12/17/21 Stop Date: 01/16/22 Status: Ordered OxyCONTIN 10 mg oral tablet, extended release 10 mg, 1, tablet, By Mouth, Every 12 hours, # 56 tablet, Refills 0, Tot. Refills 0, Maintenance, 12/13/21 10:46:00 EDT, Route to Pharmacy Electronically, [facility]/pharmacy #[id number], in addition to his IR oxycodone, 170, [...]
--- OUTSIDE RECORDS SUMMARY | 2024-03-09 07:28 | XMS_ITS | Continuity of Care Document ---
Author Organization [facility] Address [address] [place] [address]- Care Team Providers Care Grinding Wheel Inspector Name Role Phone Fanny TOURE, Rhonda Primary Care Physician [phone] [facility]counter [facility] Date(s): 05/20/23 - 06/19/23 [facility] [address] [place] [address]- Allergies, Adverse Reactions, Alerts Substance Reaction Severity [...] each, 5 Refills, Maintenance, 05/18/23 13:33:00 EDT, [facility], 25, INHALE 1 PUFF 4 TIMES A DAY NEEDED FOR COUGH, 170, cm, 05/05/23 12:54:00 EDT, Height, 50, kg, 11/15/21 11:2... Start Date: 05/18/23 Status: Ordered amLODIPine 5 mg oral tablet 1 tablet, By Mouth, Daily, # 90 tablet, 1 Refills, Maintenance, 06/09/23 9:12:00 EST, [facility], 170, cm, 06/03/23 14:00:00 EST, Height, 51, kg, 06/03/23 14:00:00 EST, Dry Weight Start Date: 06/09/23 Status: Ordered celecoxib 200 mg oral capsule 1 capsule = 200 mg, By Mouth, 2 times a day, # 14 capsule, 0 Refills, Maintenance, 06/04/23 13:40:00 EST, Capsule, [facility], Partial fill upon patient request if the prescription is for a schedule II opioid drug., 170, cm, 06/03/23 14:... Start Date: 06/04/23 Stop Date: 06/11/23 Status: Ordered cholecalciferol 50,000 intl units oral capsule 1 capsule = 50,000 International_Units, By Mouth, Every 7 days, # 13 capsule, 3 Refills, Maintenance, 02/08/23 9:24:00 EDT, Capsule, [facility]/pharmacy #[id number], Partial fill upon patient request, [...] 06/04/23 13:40:00 EST, Route to Pharmacy Electronically, [facility], Partial fill uponpatient request if [...] Unknown, 5 Refills, Maintenance, 12/11/22 19:25:00 EDT, [facility] STORE 15328, 90, INSTILL 2 SPRAYS INTO EACH NOSTRIL 3 TIMES A DAY NEEDED FOR CONGESTION, 1... Start Date: 12/11/22 Status: Ordered metoprolol 25 mg oral tablet 12.5 mg, 0.5, tablet, By Mouth, Every 12 hours, # 30 tablet, Refills 0, Tot. Refills 0, Maintenance, 06/04/23 13:43:00 EST, Route to Pharmacy Electronically, [facility], Partial fill upon patient request if the prescription is for a sche... Start Date: 06/04/23 Stop Date: 07/04/23 Status: Ordered Nicoderm C-Q 7 mg/24 hr transdermal film, extended release 1 patch, Topically, Daily, # 30 patch, 0 Refills, Maintenance, 05/26/23 10:00:00 EST, Patch, Partial fill upon patient request if the prescription is for a schedule II opioid drug. Start Date: 05/26/23 Status: Ordered nicotine 14 mg/24 hr transdermal film, extended release 1 patch, Topically, Daily, # 30 patch, 0 Refills, Maintenance, 06/12/23 7:48:00 EST, Patch, [facility]/pharmacy #1972, Partial fill upon patient request if the prescription is for a schedule II opioid drug., 1 patch Topically Daily,x30 days, 170, cm, ... Start Date: 06/12/23 Stop Date: 07/12/23 Status: Ordered oxyCODONE 5 mg oral tablet [...] 1, tablet, By Mouth, Every 12 hours, woods manager chacked fill 05/26/2023, # 56 tablet, Refills 0, Tot. Refills 0, Maintenance, 05/24/23 8:17:00 EST, Route to Pharmacy Electronically, [facility]/pharmacy #1972, Partial fill upon patient [...] use disorder Confirmed Active Underweight Confirmed Active 69061 r lung wedge resection Social History Social History Type Response Tobacco Use: 4 or less cigar ettes(less than 1/4 pack)/day in last 30 days. Other: 2-3 cig/d x 40 years; was at 0.5 pp/d. Sex Patient Care team information Care Team Personnel Name: Aurelia Yang RN Position: [facility] RN Member Role: Primary Care Nurse Name: Rhonda Escobedo NP Position: [facility] PCO Associate Professional Member Role: PCP Address: Address: [address], [address]rd [place] [address]- Name: Yue Delgado RN Position: [facility] RN Member Role: Primary Care Nurse Name: Debo Gagnon Position: [facility] RN Member Role: Primary Care Nurse Name: Lisa Awad RN Position: [facility] RN Member Role: Primary Care Nurse Name: Elly Rodriges RN Position: [facility] SN RN Member Role: Primary Care Nurse Name: Nilda Pop RN Position: [facility] RN Member Role: Primary Care Nurse Care Team Related Persons Name: REVA DIOPFER Address: [place] [address] Name: ELDER ANDERSON Address: home [address] [place] [address] Name: MAEGAN ANDERSON Address: home [address] [place] [address]
--- OUTSIDE RECORDS SUMMARY | 2024-03-09 07:28 | XMS_ITS | Continuity of Care Document ---
Author Organization [facility] Adult Address [address] [place] [address]- Care Team Providers Care Measurement Superintendent Name Role Phone Fanny TOURE, Rhonda Primary Care Physician [phone] [facility]s): 11/05/23 - 12/05/23 [facility] [address] [place] [address]- Allergies, Adverse Reactions, Alerts Substance Reaction Severity [...] Refills, Maintenance, 06/09/23 9:12:00 EST, [facility], 170, cm, 06/03/23 14:00:00 EST, Height, 51, kg, 06/03/23 14:00:00 EST, Dry Weight Start Date: 06/09/23 Status: Ordered atorvastatin 20 mg oral tablet 1 tablet, By Mouth, Daily, # 90 tablet, 1 Refills, Maintenance, 07/29/23 9:02:00 EST, [facility], 170, cm, 06/23/23 10:13:00 EST, Height, 51, kg, 06/03/23 14:00:00 EST, Dry Weight Start Date: 07/29/23 Status: Ordered celecoxib 200 mg oral capsule 1 capsule = 200 mg, By Mouth, 2 times a day, # 14 capsule, 0 Refills, Maintenance, 06/04/23 13:40:00 EST, Capsule, [facility], Partial fill upon [...] 06/04/23 13:40:00 EST, Route to Pharmacy Electronically, [facility], Partial fill uponpatient request if the [...] Unknown, 5 Refills, Maintenance, 12/11/22 19:25:00 EDT, [facility], 90, INSTILL 2 SPRAYS INTO EACH NOSTRIL 3 TIMES A DAY NEEDED FOR CONGESTION, 1... Start Date: 12/11/22 Status: Ordered lisinopril 10 mg oral tablet 1, tablet, By Mouth, Daily, # 90 tablet, Refills 1, Maintenance, 09/07/23 9:20:00 EST, Route to Pharmacy Electronically, [facility] 0[facility], 170, cm, 07/29/23 14:04:00 EST, Height, 51, kg, 06/03/23 14:00:00 EST, Dry Weight Start Date: 09/07/23 Status: Ordered metoprolol 25 mg oral tablet 12.5 mg, 0.5, tablet, By Mouth, Every 12 hours, # 30 tablet, Refills 0, Tot. Refills 0, Maintenance, 06/04/23 13:43:00 EST, Route to Pharmacy Electronically, [facility], Partial fill upon patient request if the prescription is for a sche... Start Date: 06/04/23 Stop Date: 07/04/23 Status: Ordered nicotine 14 mg/24 hr transdermal film, extended release 1 patch, Topically, Daily, # 28 patch, 0 Refills, Maintenance, 07/27/23 14:23:00 EST, [facility] ST[facility] 29709, 28, APPLY 1 PATCH TOPICALLY DAILY, 170, cm, 06/23/23 10:13:00 EST, Height, 51, kg, 06/03/23 14:00:00 EST, Dry Weight Start Date: 07/27/23 Status: Ordered oxyCODONE 10 mg oral tablet 1 tablet = 10 mg, By Mouth, Every 6 hours, PRN as needed for pain, teleservices representative assessed fill 11/10/23, # 112tablet, 0 Refills, Maintenance, 11/10/23 9:25:00 EDT, Tablet, [facility]/pharmacy #[id number], Partial fill uponpatient request if the prescription is for a schedu... Start Date: 11/10/23 Stop Date: 12/08/23 Status: Ordered OxyCONTIN 20 mg oral tablet, extended release 20 mg, 1, tablet, By Mouth, Every 12 hours, teleservices representative chacked fill 11/10/23, # 56 tablet, Refills 0, Tot. Refills 0, Maintenance, 11/10/23 9:25:00 EDT, Route to Pharmacy Electronically, [facility]/pharmacy #[id number], Partial fill upon patient request if the prescriptio... Start Date: 11/10/23 Stop Date: 12/08/23 Status: Ordered Vasile See Instructions, # 1 [...] Confirmed Active Tobacco use disorder Confirmed Active 75604 r lung wedge resection Social History Social History Type Response Smoking Status Former smoker, quit more than 30 days ago; Total pack years: 45; entered on: 09/17/23 Sex Patient Care team information Care Team Personnel Name: Aurelia Yang RN Position: [facility] RN Member Role: Primary Care Nurse Name: Rhonda Escobedo NP Position: [facility] PCO Associate Professional Member Role: PCP Address: Address: [address] [place] [address], [address] [place], [place] [address] Name: Yue Delgado RN Position: [facility] RN Member Role: Primary Care Nurse Name: Debo Gagnon Position: S RN Member Role: Primary Care Nurse Name: Lisa Awad RN Position: S RN Member Role: Primary Care Nurse Name: Elly Rodriges RN Position: [facility] RN Member Role: Primary Care Nurse Name: Nilda Pop RN Position: S RN Member Role: Primary Care Nurse Care Team Related Persons Name: CHARLINE DIOP Address: [place] [address] Name: ELDER ANDERSON Address: home [address] [place] [address] Name: MAEGAN ANDERSON Address: home [address] [place] [address]
--- OUTSIDE RECORDS SUMMARY | 2024-03-09 07:28 | XMS_ITS | Continuity of Care Document ---
Author Organization [facility] Adult Address [address] [place] [address]- Care Team Providers Care Class A Lineman Name Role Phone Fanny TOURE, Rhonda Primary Care Physician [facility]s): 07/23/22 - 08/22/22 [facility] [address] [place] [phone]- Allergies, Adverse Reactions, Alerts Substance Reaction Severity [...] FOR WHEEZING, # 8.5 each, 5 Refills, Maintenance,06/04/22 13:05:00 EST, [facility] 148[facility], 30, TAKE 2 PUFFS BY MOUTH EVERY 4 HOURS NEEDED FOR WHEEZING, 170, cm, 04/10/22 14:30:00 EDT, Height, 50, kg,... Start Date: 06/04/22 Status: Ordered amLODIPine 5 mg oral tablet 1 tablet, By Mouth, Daily, # 90 tablet, 1 Refills, Maintenance, 06/23/22 9:11:00 EST, [facility] 50638, 170, cm, 04/10/22 14:30:00 EDT, Height, 50, kg, 11/15/21 11:23:00 EDT, Dry Weight Start Date: 06/23/22 Status: Ordered Anusol-HC 2.5% cream with applicator [...] tablet, 1 Refills, Maintenance, 08/05/22 7:46:00 EST, [facility] 18204, 170, cm, 08/05/22 7:32:00 EST, Height, 50, kg, 11/15/21 11:23:00 EDT, Dry Weight Start Date: 08/05/22 Status: Ordered atorvastatin 20 mg oral tablet 1 tablet = 20 mg, By Mouth, Daily, # 30 tablet, 5 Refills, Maintenance, 11/17/21 19:20:00 EDT, Tablet, [facility]/pharmacy #1234, Partial fill upon patient request if the prescription is for a schedule II opioid drug., 170, cm, 11/15/21 11:23:00 EDT, Height,... Start Date: 11/17/21 Status: Ordered atorvastatin 20 mg oral tablet 1 tablet = 20 mg, By Mouth, Daily, for 90 days, # 90 tablet, 1 Refills, Physician Stop 12/15/22 11:17:00 EDT, 06/18/22 11:17:00 EST, [facility]/pharmacy #1234, 170, cm, 04/10/22 14:30:00 EDT, Height, 50, kg, 11/15/21 11:23:00 EDT, Dry Weight Start Date: 06/18/22 Stop Date: 12/15/22 Status: Ordered Back Brace See Instructions, # [...] Maintenance, 09/24/21 11:18:00 EST, Cream, [facility]/pharmacy #1234, Partial fill upon patient request if the prescription is for a schedule II opioid drug., 1 application Topically 3 times a day,... Start Date: 09/24/21 Status: Ordered hydrocortisone topical 25 mg suppository 1 supp = 25 mg, Rectally, 2 times a day, # 28 supp, 0 Refills, Maintenance, 10/02/21 13:05:00 EDT, Suppository, [facility]/pharmacy #1234, Partial fill upon patient request if the prescription is for a schedule II opioid drug., 170, cm, 10/02/21 10:36:00 EDT... Start Date: 10/02/21 Stop Date: 10/16/21 Status: Ordered ipratropium nasal 21 mcg/inh spray See Instructions, INSTILL 2 SPRAYS INTO EACH NOSTRIL 3 TIMES A DAY NEEDED FOR CONGESTION, # 90 Unknown, 1 Refills, Maintenance, 07/23/22 14:20:00 EST, [facility] STORE 59447, 90, INSTILL 2 SPRAYS INTO EACH NOSTRIL 3 TIMES A DAY NEEDED FOR CONGESTION, 1... Start Date: 07/23/22 Status: Ordered lisinopril 10 mg oral tablet 1, tablet, By Mouth, Daily, # 90 tablet, Refills 1, Tot. Refills 1, Maintenance, 02/16/22 16:25:00 EDT, [facility], 170, cm, 12/31/21 8:21:00 EDT, Height, 50, kg, 11/15/21 11:23:00 EDT, Dry Weight Start Date: 02/16/22 Status: Ordered Nicotrol Inhaler 10 mg inhalation device See Instructions, USE 6 CARTRIDGES PER DAY, # 168 Unknown, 0 Refills, Maintenance, 02/03/22 9:21:00EDT, [facility]/pharmacy #1234, 28, USE 6 CARTRIDGES PER DAY, 170, cm, 12/31/21 8:21:00 EDT, Height, 50, kg, 11/15/21 11:23:00 EDT, Dry Weight Start Date: 02/03/22 Status: Ordered oxyCODONE 10 mg oral tablet 1 tablet = 10 mg, By Mouth, Every 6 hours, PRN as needed for severe pain, # 112 tablet, 0 Refills, Maintenance, 08/21/22 9:34:00 EST, Tablet, [facility]/pharmacy #1234, Partial fill upon patient request if the prescription is for a schedule II opioid drug. M... Start Date: 08/21/22 Stop Date: 09/18/22 Status: Ordered OxyCONTIN 10 mg oral tablet, extended release 10 mg, 1, tablet, By Mouth, Every 12 hours, # 56 tablet, Refills 0, Tot. Refills 0, Maintenance, 08/21/22 9:34:00 EST, Route to Pharmacy Electronically, [facility]/pharmacy #1234, in addition to his IR oxycodone, 170, cm, 08/05/22 8:05:00 EST, Height, 50, kg... Start Date: 08/21/22 Stop Date: 09/18/22 Status: Ordered Problem List Condition Confirmation Course [...] Team Personnel Name: Rhonda Escobedo NP Position: [facility] PCO Associate Professional Member Role: PCP Address: Address: [address] [place] [address], [address] [place] [address]- Name: Lisa Awad RN Position: S RN Member Role: Primary Care Nurse Name: Elly Rodriges RN Position: [facility] SN RN Member Role: Primary Care Nurse Care Team Related Persons Name: REVA DIOPFER Address: [place] [address] Name: ELDER ANDERSON Address: home [address] [place] [address] Name: MAEGAN ANDERSON Address: home [address] [place] [address]
--- OUTSIDE RECORDS SUMMARY | 2024-03-09 07:28 | XMS_ITS | Continuity of Care Document ---
Author Organization [facility] Adult Address [address] [place] [address]- Care Team Providers Care Qual Field Manager Name Role Phone Tonja TOURE, Jeannette Olivera Primary Care Physicia n [facility]20 - 03/01/21 [facility] [address] [place] [address]- Attending Physician: Tonja TOURE, Jeannette Olivera Allergies, Adverse [...] Refills Start Date: 09/09/07 Status: Ordered lisinopril 10 mg oral tablet 10 mg, 1, tablet, By Mouth, Daily, # 30 tablet, Refills 1, Tot. Refills 1, Maintenance, 02/26/21 12:07:00 EDT, Route to Pharmacy Electronically, [facility]/pharmacy #1234, Partial fill upon patient request if the prescription is for a schedule II opioid drug... Start Date: 02/26/21 Stop Date: 04/27/21 Status: Ordered Mapap Arthritis Pain 650 mg [...] Maintenance, 08/23/20 13:22:00 EST, CR Tablet, [facility]/pharmacy #1234, Partial fill upon patient request if the prescription is for a schedule II opioid drug., 170, cm, 08/21/20 6:19:00 EST, Heigh... Start Date: 08/23/20 Status: Ordered ProAir HFA 90 mcg/inh inhalation aerosol 2 puffs, Inhalation, Every 4 hours, PRN NEEDED FOR WHEEZE, # 1 each, 5 Refills, Maintenance, 03/01/21 12:03:00 EDT, [facility]/pharmacy #1234, 2 puffs Inhalation Every 4 hours,PRN: [...]
--- OUTSIDE RECORDS SUMMARY | 2024-03-09 07:28 | XMS_ITS | Continuity of Care Document ---
Author Organization [facility] Address [address] [place] [address]- Care Team Providers Care Reporting Specialist Name Role Phone Fanny TOURE, Rhonda Primary Care Physician [phone] [facility]counter [facility]s): 04/27/23 - 05/27/23 [facility] [address] [place] [address]- Allergies, Adverse Reactions, Alerts Substance Reaction Severity [...] each, 5 Refills, Maintenance, 05/18/23 13:33:00 EDT, [facility] STORE 11448, 25, INHALE 1 PUFF 4 TIMES A DAY NEEDED FOR COUGH, 170, cm, 05/05/23 12:54:00 EDT, Height, 50, kg, 11/15/21 11:2... Start Date: 05/18/23 Status: Ordered amLODIPine 5 mg oral tablet 1 tablet, By Mouth, Daily, # 90 tablet, 1 Refills, Maintenance, 12/04/22 8:21:00 EDT, [facility]/pharmacy #1972, 170, cm, 08/05/22 8:05:00 EST, [...] 3 Refills, Maintenance, 02/08/23 9:24:00 EDT, Capsule, [facility]/pharmacy #1972, Partial fill upon [...] Unknown, 5 Refills, Maintenance, 12/11/22 19:25:00 EDT, [facility] ST[facility] 42234, 90, INSTILL 2 SPRAYS INTO EACH NOSTRIL 3 TIMES A DAY NEEDED FOR CONGESTION, 1... Start Date: 12/11/22 Status: Ordered lisinopril 10 mg oral tablet 1, tablet, By Mouth, Daily, # 90 tablet, Refills 1, Maintenance, 05/01/23 7:04:00 EDT, Route to Pharmacy Electronically, [facility] ST[facility] 21311, 170, cm, 02/06/23 9:02:00 EDT, Height, 50, [...] tablet, By Mouth, Every 6 hours, PRN, SAFETY SUPERVISOR checked. Fill 05/26 2023, # 224 tablet, Refills 0, Tot. Refills 0, Maintenance, as needed for pain, 05/24/23 8:15:00 EST, Route to Pharmacy Electronically, [facility]/pharmacy #1972, Partial fill upon patien... Start Date: 05/24/23 Stop Date: 06/21/23 Status: Ordered OxyCONTIN 20 mg oral tablet, extended release 20 mg, 1, tablet, By Mouth, Every 12 hours, senior enlisted advisor chacked fill 05/26/2023, # 56 tablet, Refills 0, Tot. Refills 0, Maintenance, 05/24/23 8:17:00 EST, Route to Pharmacy Electronically, [facility]/pharmacy #1972, Partial fill upon [...] Team Personnel Name: Aurelia Yang RN Position: [facility] RN Member Role: Primary Care Nurse Name: Rhonda Escobedo NP Position: [facility] PCO Associate Professional Member Role: PCP Address: Address: [address] [place] [address], [address] [place] [address]- Name: Yue Delgado RN Position: S RN Member Role: Primary Care Nurse Name: Lisa Awad RN Position: S RN Member Role: Primary Care Nurse Name: Elly Rodriges RN Position: [facility] RN Member Role: Primary Care Nurse Care Team Related Persons Name: CHARLINE DIOP Address: [place] [address] Name: ELDER ANDERSON Address: home [address] [place] [address] Name: MAEGAN ANDERSON Address: home [address] [place] [address]
--- OUTSIDE RECORDS SUMMARY | 2024-03-09 07:28 | XMS_ITS | Continuity of Care Document ---
Author Organization [facility] Adult Address [address] [place] [address]- Care Team Providers Care Environmental Conservation Officer Name Role Phone Fanny TOURE, Rhonda Primary Care Physician [phone] [facility]counter [facility] Date[facility]): 06/23/23 - 07/23/23 [facility] Adult [address] [place] [address]- Allergies, Adverse Reactions, Alerts Substance Reaction Severity [...] Refills, Maintenance, 05/18/23 13:33:00 EDT, [facility], 25, INHALE 1 PUFF 4 TIMES A DAY NEEDED FOR COUGH, 170, cm, 05/05/23 12:54:00 EDT, Height, 50, kg, 11/15/21 11:2... Start Date: 05/18/23 Status: Ordered amLODIPine 5 mg oral tablet 1 tablet, By Mouth, Daily, # 90 tablet, 1 Refills, Maintenance, 06/09/23 9:12:00 EST, [facility], 170, cm, 06/03/23 14:00:00 EST, Height, 51, kg, 06/03/23 14:00:00 EST, Dry Weight Start Date: 06/09/23 Status: Ordered celecoxib 200 mg oral capsule 1 capsule = 200 mg, By Mouth, 2 times a day, # 14 capsule, 0 Refills, Maintenance, 06/04/23 13:40:00 EST, Capsule, [facility], Partial fill upon patient request if the prescription is for a schedule II opioid drug., 170, cm, 06/03/23 14:... Start Date: 06/04/23 Stop Date: 06/11/23 Status: Ordered cholecalciferol 50,000 intl units oral capsule 1 capsule = 50,000 International_Units, By Mouth, Every 7 days, # 13 capsule, 3 Refills, Maintenance, 02/08/23 9:24:00 EDT, Capsule, [facility]/pharmacy #1972, Partial fill upon patient [...] 06/04/23 13:40:00 EST, Route to Pharmacy Electronically, [facility], Partial fill uponpatient [...] Unknown, 5 Refills, Maintenance, 12/11/22 19:25:00 EDT, [facility] STORE 04514, 90, INSTILL 2 SPRAYS INTO EACH NOSTRIL 3 TIMES A DAY NEEDED FOR CONGESTION, 1... Start Date: 12/11/22 Status: Ordered metoprolol 25 mg oral tablet 12.5 mg, 0.5, tablet, By Mouth, Every 12 hours, # 30 tablet, Refills 0, Tot. Refills 0, Maintenance, 06/04/23 13:43:00 EST, Route to Pharmacy Electronically, [facility], Partial fill upon [...] 0 Refills, Maintenance, 06/12/23 7:48:00 EST, Patch, [facility], Partial fill upon patient [...] 07/18/23 10:23:00 EST, [facility] to [facility], [facility], Partial fill upon patient request if... Start Date: 07/18/23 Stop Date: 08/15/23 Status: Ordered OxyCONTIN 20 mg oral tablet, extended release 20 mg, 1, tablet, By Mouth, Every 12 hours, senior mechanical project manager chacked fill 07/21/23, # 56 tablet, Refills 0, Tot. Refills 0, Maintenance, 07/18/23 10:23:00 EST, [facility] to [facility], [facility], Partial [...] Confirmed Active Tobacco use disorder Confirmed Active 79663 r lung wedge resection Social History Social History Type Response Tobacco Use: 4 or less cigar ettes(less than 1/4 pack)/day in last 30 days. Other: 2-3 cig/d x 40 years; was at 0.5 pp/d. Sex Patient Care team information Care Team Personnel Name: Aurelia Yang RN Position: S RN Member Role: Primary Care Nurse Name: Rhonda Escobedo NP Position: [facility] PCO Associate Professional Member Role: PCP Address: Address: [address] [place] [address], 3rd [address] [place], [place] [address] Name: Yue Delgado RN Position: S RN Member Role: Primary Care Nurse Name: Debo Gagnon Position: S RN Member Role: Primary Care Nurse Name: Lisa Awad RN Position: S RN Member Role: Primary Care Nurse Name: Elly Rodriges RN Position: [facility] RN Member Role: Primary Care Nurse Name: Nilda Pop RN Position: S RN Member Role: Primary Care Nurse Care Team Related Persons Name: CHARLINE DIOP Address: [place] [address] Name: ELDER ANDERSON Address: home [address] [place] [address] Name: MAEGAN ANDERSON Address: home [address] [place] [address]
--- OUTSIDE RECORDS SUMMARY | 2024-03-09 07:28 | XMS_ITS | Continuity of Care Document ---
Author Organization [facility] Address [address] [place] [address]- Care Team Providers Care Air Traffic Control Operator Name Role Phone Tonja TOURE, Jeannette Olivera Primary Care Physicia n [facility] Date(s): 03/07/21 - 04/06/21 [facility] [address] [place] [address]- Allergies, Adverse Reactions, Alerts Substance Reaction Severity [...] Mouth, Daily, # 30 tablet, Refills 0, Tot. Refills 0, Maintenance, 03/13/21 9:18:00 EDT, Route to Pharmacy Electronically, [facility]/pharmacy #1234, Partial fill upon patient request if the prescription is for a schedule II opioid drug.... Start Date: 03/13/21 Status: Ordered omeprazole 20 mg oral delayed release tablet 1 tablet = 20 mg, By Mouth, Daily, # 90 tablet, 1 Refills, Maintenance, 08/23/20 13:22:00 EST, CR Tablet, [facility]/pharmacy #1234, Partial fill upon patient request if the prescription is for a schedule II opioid drug., 170, cm, 08/21/20 6:19:00 ESTLia... Start Date: 08/23/20 Status: Ordered ProAir HFA [...]
--- OUTSIDE RECORDS SUMMARY | 2024-03-09 07:28 | XMS_ITS | Continuity of Care Document ---
Author Organization [facility] Address [address] [place] [address]- Care Team Providers Care Air Analysis Engineering Technician Name Role Phone Chaim Templeton MD Primary Care Physician [phone] Encounter [facility] Date(s): 11/24/19 - 03/23/20 [facility] [address] [place] [address]- [facility] Attending Physician: Cece Becker DO Admitting Physician: Cece Becker DO Referring Physician: Chaim [...] 10/13/19 11:24:00 EDT, Route to Pharmacy Electronically, [facility]/pharmacy #1234, 170, cm, 09/20/19 9:02:00 EST, Height, [...] capsule, 0 Refills,Maintenance, 08/31/19 14:03:00 EST, Capsule, [facility]/pharmacy #1234, 170, cm, 08/31/19 13:40:00 EST, Height, [...] capsule, Refills 1, Tot. Refills 0, Maintenance, 209:15:00 EDT, Route to Pharmacy Electronically, [facility] STORE 69859, 170, cm, 09/20/19 9:02:00 EST, Height, 59.4, kg, 04/07/19 15:15:00 EDT, Dry Weight Start Date: 01/16/20 Status: Ordered lisinopril 2.5 mg oral tablet 1, tablet, By Mouth, Daily, # 90 tablet, Refills 1, Tot. Refills 0, Maintenance, 01/06/20 11:58:00 EDT, Route to Pharmacy Electronically, [facility], 170, cm, 09/20/19 9:02:00 EST, Height, 59.4,kg, 04/07/19 15:15:00 EDT, Dry Weight Start Date: 01/06/20 Status: Ordered Medrol Dosepak 4 mg oral tablet 1 pack/packet, By Mouth, Once, as directed on package labeling, # 21 tablet, 0 Refills, Soft Stop, 10/21/19 9:15:00 EDT, Tablet, [facility]/pharmacy #1234, 170, cm, 09/20/19 9:02:00 EST, Height, 59.4, kg, 04/07/19 15:15:00 EDT, Dry Weight Start Date: 10/21/19 Status: Ordered ProAir HFA 90 mcg/inh inhalation aerosol 2 puffs, Inhalation, Every 4 hours, PRN NEEDED FOR WHEEZE, # 8.5 Unknown, 2 Refills, Maintenance, 01/31/20 18:16:00 EDT, [facility] 365[facility], 17, INHALE 2 PUFFS BY MOUTH EVERY 4 HOURS NEEDED FOR WHEEZE, 170, cm, 09/20/19 9:02:00 EST, Height, 59.4, k... Start Date: 01/31/20 Status: Ordered Suboxone 8 mg-2 mg sublingual [...] ant Left ankle pain(Confirmed) Active Anxiety(Confirmed) Active Bone pain(Confirmed) Active Bronchitis(Confirmed) Active Chronic back pain(Confirmed) Active Chronic neck pain(Confirmed) Active Low serum cortisol level(Confirmed) Active Dysphagia(Confirmed) Active Fatigue(Confirmed) Active Hand pain(Confirmed) Active Hypertension(Confirmed) Active Effusion of left knee(Confirmed) Active Knee pain(Confirmed) Active Lung mass(Confirmed) Active Medial epicondylitis, right elbow(Confirmed) Active Polyarthralgia(Confirmed) Active Myalgia(Confirmed) Active Preop examination(Confirmed) Active Pain in the shoulder(Confirmed) Active Tobacco use disorder(Confirmed) Active Weight loss(Confirmed) Active Social History Social History Type Response Smoking Status Current every day sm teresa; Type: Cigarettes; Tobacco use times per day: 12 cigerettes a day; Number of years: 35; entered on: 04/16/15 Sex
--- OUTSIDE RECORDS SUMMARY | 2024-03-09 07:28 | XMS_ITS | Continuity of Care Document ---
Author Organization [facility] Adult Address [address] [place] [address]- Care Team Providers Care Box Person Name Role Phone Fanny TOURE, Rhonda Primary Care Physician [phone] [facility]s): 07/17/23 - 08/16/23 [facility] [address] [place] [address]- Allergies, Adverse Reactions, Alerts Substance Reaction Severity [...] Refills, Maintenance, 05/18/23 13:33:00 EDT, [facility], 25, INHALE 1 PUFF 4 TIMES A DAY NEEDED FOR COUGH, 170, cm, 05/05/23 12:54:00 EDT, Height, 50, kg, 11/15/21 11:2... Start Date: 05/18/23 Status: Ordered amLODIPine 5 mg oral tablet 1 tablet, By Mouth, Daily, # 90 tablet, 1 Refills, Maintenance, 06/09/23 9:12:00 EST, [facility], 170, cm, 06/03/23 14:00:00 EST, Height, 51, kg, 06/03/23 14:00:00 EST, Dry Weight Start Date: 06/09/23 Status: Ordered atorvastatin 20 mg oral tablet 1 tablet, By Mouth, Daily, # 90 tablet, 1 Refills, Maintenance, 07/29/23 9:02:00 EST, [facility], 170, cm, 06/23/23 10:13:00 EST, Height, 51, kg, 06/03/23 14:00:00 EST, Dry Weight Start Date: 07/29/23 Status: Ordered celecoxib 200 mg oral capsule 1 capsule = 200 mg, By Mouth, 2 times a day, # 14 capsule, 0 Refills, Maintenance, 06/04/23 13:40:00 EST, Capsule, [facility], Partial fill upon patient [...] 06/04/23 13:40:00 EST, Route to Pharmacy Electronically, [facility], Partial fill uponpatient request if the [...] Unknown, 5 Refills, Maintenance, 12/11/22 19:25:00 EDT, [facility] STORE 51529, 90, INSTILL 2 SPRAYS INTO EACH NOSTRIL 3 TIMES A DAY NEEDED FOR CONGESTION, 1... Start Date: 12/11/22 Status: Ordered metoprolol 25 mg oral tablet 12.5 mg, 0.5, tablet, By Mouth, Every 12 hours, # 30 tablet, Refills 0, Tot. Refills 0, Maintenance, 06/04/23 13:43:00 EST, Route to Pharmacy Electronically, [facility], Partial fill upon patient request if the prescription is for a sche... Start Date: 06/04/23 Stop Date: 07/04/23 Status: Ordered nicotine 14 mg/24 hr transdermal film, extended release 1 patch, Topically, Daily, # 28 patch, 0 Refills, Maintenance, 07/27/23 14:23:00 EST, [facility], 28, APPLY 1 PATCH TOPICALLY DAILY, 170, cm, 06/23/23 10:13:00 EST, Height, 51, kg, 06/03/23 14:00:00 EST, Dry Weight Start Date: 07/27/23 Status: Ordered oxyCODONE 5 mg oral tablet 10 mg, 2, tablet, By Mouth, Every 6 hours, PRN, fill on 07/21/22, # 224 tablet, Refills 0, Tot. Refills 0, Maintenance, as needed for pain, 07/18/23 10:23:00 EST, Route to Pharmacy Electronically, [facility]/pharmacy #1972, Partial fill upon patient request if... Start Date: 07/18/23 Stop Date: 08/15/23 Status: Ordered OxyCONTIN 20 mg oral tablet, extended release 20 mg, 1, tablet, By Mouth, Every 12 hours, outboard motor mechanic chacked fill 07/21/23, # 56 tablet, Refills 0, Tot. Refills 0, Maintenance, 07/18/23 10:23:00 EST, Route to Pharmacy Electronically, [facility] [...] Confirmed Active Tobacco use disorder Confirmed Active 63891 r lung wedge resection Social History Social [...] Associate Professional Member Role: PCP Address: Address: [address] [place] [address], 3rd [place] [address]- Name: Yue Delgado RN Position: S RN [...] Persons Name: JADON CHARLINE Address: [place] [address] Name: ELDER ANDERSON Address: home [address] [place] [address] Name: MAEGAN ANDERSON Address: home [address] [place] [address]
--- OUTSIDE RECORDS SUMMARY | 2024-03-09 07:28 | XMS_ITS | Continuity of Care Document ---
Author Organization [facility] Adult Address [address] [place] [address]- Care Team Providers Care Tire Wrapper Name Role Phone Fanny TOURE, Rhonda Primary Care Physician [facility] Date(s): 11/13/21 - 12/13/21 [facility] [address] [place] [id number]- Allergies, Adverse Reactions, Alerts Substance Reaction Severity [...] # 8.5 each, 5 Refills, [facility], 17, INHALE 2 PUFFS EVERY 4 HOURS NEEDED FOR WHEEZING, 170, cm, 11/15/21 11:23:00 EDT, Height, 50, kg, 11/15/21 11:23:00 EDT, Dry Weight Start Date: 11/17/21 Status: Ordered amLODIPine 5 mg oral tablet 1 tablet, By Mouth, Daily, # 90 tablet, 0 Refills, [email or web address] 82[facility], 170, cm, 11/15/21 11:23:00 EDT,Height, 50, kg, [...] 2 Refills, Maintenance, 09/24/21 11:18:00 EST, Cream, [facility]/pharmacy #1234, Partial fill upon patient request if the prescription is for a schedule II opioid drug., 1 application Topically 3 times a day,... Start Date: 09/24/21 Status: Ordered hydrocortisone topical 25 mg suppository 1 supp = 25 mg, Rectally, 2 times a day, # 28 supp, 0 Refills, Maintenance, 10/02/21 13:05:00 EDT, Suppository, [facility]/pharmacy #1234, Partial fill upon patient request if the prescription is for a schedule II opioid drug., 170, cm, 10/02/21 10:36:00 EDT... Start Date: 10/02/21 Stop Date: 10/16/21 Status: Ordered lisinopril 10 mg oral tablet 1, tablet, By Mouth, Daily, # 30 tablet, Refills 1, Route to Pharmacy Electronically, [email or web address] 47542, 170, cm, 12/05/21 10:11:00 EDT, Height, 50, kg, 11/15/21 11:23:00 EDT, Dry Weight Start Date: 12/13/21 Status: Ordered Nicotrol Inhaler 10 mg inhalation device See Instructions, use 6 cartridges per day, # 84 capsule, 0 Refills, Maintenance, 04/15/21 10:30:00EDT, [facility]/pharmacy #1234, Partial fill upon patient request if the prescription is for a schedule IIopioid drug., use 6 cartridges per day, 170, cm, 09... Start Date: 04/15/21 Status: Ordered oxyCODONE 10 mg oral tablet 1 tablet = 10 mg, By Mouth, Every 6 hours, PRN as needed for severe pain, # 120 tablet, 0 Refills, Maintenance, 11/18/21 8:27:00 EDT, Tablet, [facility]/pharmacy #1234, Partial fill upon patient request if the prescription is for a schedule II opioid drug. M... Start Date: 11/18/21 Stop Date: 12/18/21 Status: Ordered OxyCONTIN 10 mg oral tablet, extended release 10 mg, 1, tablet, By Mouth, Every 12 hours, # 56 tablet, Refills 0, Tot. Refills 0, Maintenance, 12/13/21 10:46:00 EDT, [facility], in addition to his IR oxycodone, [...]
--- OUTSIDE RECORDS SUMMARY | 2024-03-09 07:28 | XMS_ITS | Continuity of Care Document ---
Author Organization [facility] Adult Address [address] [place] [address]- Care Team Providers Care Process Consultant Name Role Phone Fanny TOURE, Rhonda Primary Care Physician [facility] Date(s): 12/11/22 - 01/10/23 [facility] [address] [place] [address]- Allergies, Adverse Reactions, Alerts Substance Reaction Severity [...] tablet, 1 Refills, Maintenance, 12/04/22 8:21:00 EDT, [facility]/pharmacy #1972, 170, cm, 08/05/22 8:05:00 EST, Height, 50, kg, 11/15/21 11:23:00 EDT, Dry Weight Start Date: 12/04/22 Status: Ordered Anusol-HC 2.5% cream with applicator 1 application, Rectally, 2 times a day, # 30 Gm, 1 Refills, Maintenance, 09/24/21 13:25:00 EST, Cream, [facility]/pharmacy #1234, Partial fill upon patient request if the prescription is for a schedule II opioid drug., 1 application Rectally 2 times a day, 1... Start Date: 09/24/21 Status: Ordered Anusol-HC 2.5% cream with applicator 1 application, Rectally, 2 times a day, # 30 Gm, 1 Refills, Maintenance, 06/27/21 14:24:00 EST, Cream, [facility]/pharmacy #1234, Partial fill upon patient request if the prescription is for a schedule II opioid drug., 1 application Rectally 2 times a day, 1... Start Date: 06/27/21 Status: Ordered atorvastatin 20 mg oral tablet 1 tablet = 20 mg, By Mouth, Daily, for 90 days, # 90 tablet, 1 Refills, Physician Stop 06/13/23 11:17:00 EST, 12/15/22 11:17:00 EDT, [facility]/pharmacy #1972, 170, cm, 08/05/22 8:05:00 EST, Height, 50, kg,11/15/21 11:23:00 EDT, Dry Weight Start Date: 12/15/22 Stop Date: 06/13/23 Status: Ordered atorvastatin 20 mg oral tablet See Instructions, TAKE 1 TABLET BY MOUTH EVERY DAY, # 90 tablet, 1 Refills, Maintenance, 08/05/22 7:46:00 EST, [facility], 170, cm, 08/05/22 7:32:00 EST, Height, 50, kg, 11/15/21 11:23:00 EDT, Dry Weight Start Date: 08/05/22 Status: Ordered atorvastatin 20 mg oral tablet 1 tablet = 20 mg, By Mouth, Daily, # 30 tablet, 5 Refills, Maintenance, 11/17/21 19:20:00 EDT, Tablet, [facility]/pharmacy #1234, Partial fill [...] Unknown, 5 Refills, Maintenance, 12/11/22 19:25:00 EDT, [facility] STORE 36760, 90, INSTILL 2 SPRAYS INTO EACH NOSTRIL 3 TIMES A DAY NEEDED FOR CONGESTION, 1... Start Date: 12/11/22 Status: Ordered lisinopril 10 mg oral tablet 1, tablet, By Mouth, Daily, # 90 tablet, Refills 1, Maintenance, 08/25/22 11:40:00 EST, Route to Pharmacy Electronically, [facility] STORE 70973, 170, cm, 08/05/22 8:05:00 EST, Height, 50, kg, 11/15/21 11:23:00 EDT, Dry Weight Start Date: 08/25/22 Status: Ordered Nicotrol Inhaler 10 mg inhalation device See Instructions, USE 6 CARTRIDGES PER DAY, # 168 Unknown, 0 Refills, Maintenance, 02/03/22 9:21:00EDT, [facility]/pharmacy #1234, 28, USE 6 CARTRIDGES PER DAY, 170, cm, 12/31/21 8:21:00 EDT, Height, 50, kg, 11/15/21 11:23:00 EDT, Dry Weight Start Date: 02/03/22 Status: Ordered oxyCODONE 5 mg oral tablet 10 mg, 2, tablet, By Mouth, Every 6 hours, PRN, dose strentgth change d/t product unavialabilty fill 01/08/23, # 224 tablet, Refills 0, Tot. Refills 0, Maintenance, as needed for pain, 01/06/23 6:56:00 EDT, Route to Pharmacy Electronically, [facility]/pharm... Start Date: 01/06/23 Stop Date: 02/03/23 Status: Ordered OxyCONTIN 10 mg oral tablet, extended release 10 mg, 1, tablet, By Mouth, Every 12 hours, fill 01/08/23, # 56 tablet, Refills 0, Tot. Refills 0, Maintenance, 01/06/23 6:56:00 EDT, Route to Pharmacy Electronically, [facility]/pharmacy #1972, in addition to his IR oxycodone, 170, cm, 08/05/22 8:05:00 EST,... Start Date: 01/06/23 Stop Date: 02/03/23 Status: Ordered Ventolin HFA 108 mcg/inh inhalation aerosol with adapter See Instructions, INHALE 1 PUFF 4 TIMES A DAY NEEDED FOR COUGH, # 18 each, 5 Refills, Maintenance, 12/11/22 19:25:00 EDT, [facility] STORE 73035, 170, cm, 08/05/22 8:05:00 EST, Height, 50, [...] Team Personnel Name: Rhonda Escobedo NP Position: [facility] PCO Associate Professional Member Role: PCP Address: Address: [address], [address]rd [place] [address]- Name: Lisa Awad RN Position: S RN Member Role: Primary Care Nurse Name: Elly Rodriges RN Position: [facility] RN Member Role: Primary Care Nurse Care Team Related Persons Name: JONI DIOPNIFER Address: [place] [address] Name: ELDER ANDERSON Address: home [address] [place] [address] Name: MAEGAN ANDERSON Address: home [address] [place] [address]
--- OUTSIDE RECORDS SUMMARY | 2024-03-09 07:28 | XMS_ITS | Continuity of Care Document ---
Author Organization [facility] Adult Address [address] [place] [address]- Care Team Providers Care Commercial Lines Underwriter Name Role Phone Fanny TOURE, Rhonda Primary Care Physician [phone] [facility] 11/10/23 - 12/10/23 [facility] [address] [place] [address]- Allergies, Adverse Reactions, Alerts Substance Reaction Severity [...] Refills, Maintenance, 06/09/23 9:12:00 EST, [facility], 170, cm, 06/03/23 14:00:00 EST, Height, 51, kg, 06/03/23 14:00:00 EST, Dry Weight Start Date: 06/09/23 Status: Ordered atorvastatin 20 mg oral tablet 1 tablet, By Mouth, Daily, # 90 tablet, 1 Refills, Maintenance, 07/29/23 9:02:00 EST, [facility], 170, cm, 06/23/23 10:13:00 EST, Height, 51, kg, 06/03/23 14:00:00 EST, Dry Weight Start Date: 07/29/23 Status: Ordered celecoxib 200 mg oral capsule 1 capsule = 200 mg, By Mouth, 2 times a day, # 14 capsule, 0 Refills, Maintenance, 06/04/23 13:40:00 EST, Capsule, [facility], Partial fill upon patient [...] 06/04/23 13:40:00 EST, Route to Pharmacy Electronically, [facility], Partial fill uponpatient request if the [...] Unknown, 5 Refills, Maintenance, 12/11/22 19:25:00 EDT, [facility] ST[facility] 17805, 90, INSTILL 2 SPRAYS INTO EACH NOSTRIL 3 TIMES A DAY NEEDED FOR CONGESTION, 1... Start Date: 12/11/22 Status: Ordered lisinopril 10 mg oral tablet 1, tablet, By Mouth, Daily, # 90 tablet, Refills 1, Maintenance, 09/07/23 9:20:00 EST, Route to Pharmacy Electronically, [facility] 84134, 170, cm, 07/29/23 14:04:00 EST, Height, 51, kg, 06/03/23 14:00:00 EST, Dry Weight Start Date: 09/07/23 Status: Ordered metoprolol 25 mg oral tablet 12.5 mg, 0.5, tablet, By Mouth, Every 12 hours, # 30 tablet, Refills 0, Tot. Refills 0, Maintenance, 06/04/23 13:43:00 EST, Route to Pharmacy Electronically, [facility], Partial fill upon patient request if the prescription is for a sche... Start Date: 06/04/23 Stop Date: 07/04/23 Status: Ordered nicotine 14 mg/24 hr transdermal film, extended release 1 patch, Topically, Daily, # 28 patch, 0 Refills, Maintenance, 07/27/23 14:23:00 EST, [facility] STORE 52703, 28, APPLY 1 PATCH TOPICALLY DAILY, 170, cm, 06/23/23 10:13:00 EST, Height, 51, kg, 06/03/23 14:00:00 EST, Dry Weight Start Date: 07/27/23 Status: Ordered oxyCODONE 10 mg oral tablet 1 tablet = 10 mg, By Mouth, Every 6 hours, PRN as needed for pain, trick rodeo rider assessed fill 12/08/23, # 112tablet, 0 Refills, Maintenance, 12/07/23 12:05:00 EDT, Tablet, [facility]/pharmacy #1972, Partial fill upon patient request if the prescription is for a sched... Start Date: 12/07/23 Stop Date: 01/04/24 Status: Ordered OxyCONTIN 20 mg oral tablet, extended release 20 mg, 1, tablet, By Mouth, Every 12 hours, trick rodeo rider chacked fill 12/08/23, # 56 tablet, Refills 0, Tot. Refills 0, Maintenance, 12/07/23 12:05:00 EDT, Route to Pharmacy Electronically, [facility]/pharmacy #1972,Partial fill upon patient request [...] Confirmed Active Tobacco use disorder Confirmed Active 78068 r lung wedge resection Social History Social History Type Response Smoking Status Former smoker, quit more than 30 days ago; Total pack years: 45; entered on: 09/17/23 Sex Patient Care team information Care Team Personnel Name: Aurelia Yang RN Position: [facility] RN Member Role: Primary Care Nurse Name: Rhonda Escobedo NP Position: [facility] PCO Associate Professional Member Role: PCP Address: Address: [address] [place] [address], 3rd [address] [place], [place] [address] Name: Yue Delgado RN Position: [facility] RN Member Role: Primary Care Nurse Name: Debo Gagnon Position: S RN Member Role: Primary Care Nurse Name: Lisa Awad RN Position: S RN Member Role: Primary Care Nurse Name: Elly Rodriges RN Position: [facility] SN RN Member Role: Primary Care Nurse Name: Nilda Pop RN Position: S RN Member Role: Primary Care Nurse Care Team Related Persons Name: CHARLINE DIOP Address: [place] [address] Name: ELDER ANDERSON Address: home [address] [place] [address] Name: MAEGAN ANDERSON Address: home [address] [place] [address]
--- OUTSIDE RECORDS SUMMARY | 2024-03-09 07:28 | XMS_ITS | Continuity of Care Document ---
Author Organization [facility] Address [address] [place] [address]- Care Team Providers Care Lead Android Developer Name Role Phone Fanny TOURE, Rhonda Primary Care Physician [phone] Encounter [facility] [place] [place] Date(s): 11/11/21 - 11/18/21 [facility] [address] [place] [address]- Attending Physician: Not on Staff, Attending MD [...] FOR WHEEZING, # 8.5 each, 5 Refills, [facility], 17, INHALE 2 PUFFS EVERY 4 HOURS NEEDED FOR WHEEZING, 170, cm, 11/15/21 11:23:00 EDT, Height, 50, kg, 11/15/21 11:23:00 EDT, Dry Weight Start Date: 11/17/21 Status: Ordered amLODIPine 5 mg oral tablet 1 tablet, By Mouth, Daily, # 90 tablet, 0 Refills, [facility], 170, cm, 11/15/21 11:23:00 EDT,Height, 50, kg, [...] 2 Refills, Maintenance, 09/24/21 11:18:00 EST, Cream, [facility]/pharmacy #[id number], Partial fill upon patient request if the prescription is for a schedule II opioid drug., 1 application Topically 3 times a day,... Start Date: 09/24/21 Status: Ordered hydrocortisone topical 25 mg suppository 1 supp = 25 mg, Rectally, 2 times a day, # 28 supp, 0 Refills, Maintenance, 10/02/21 13:05:00 EDT, Suppository, [facility]/pharmacy #[id number], Partial fill upon patient request [...] EDT, Height,... Start Date: 11/17/21 Status: Ordered Nicotrol Inhaler 10 mg inhalation device See Instructions, use 6 cartridges per day, # 84 capsule, 0 Refills, Maintenance, 04/15/21 10:30:00EDT, [facility]/pharmacy #1234, Partial fill upon patient request if the prescription is for a schedule IIopioid drug., use 6 cartridges per day, 170, cm, 09... Start Date: 04/15/21 Status: Ordered oxyCODONE 10 mg oral tablet 1 tablet = 10 mg, By Mouth, Every 6 hours, PRN as needed for severe pain, # 120 tablet, 0 Refills, Maintenance, 11/18/21 8:27:00 EDT, Tablet, [facility]/pharmacy #1234, Partial fill upon patient request if the prescription is for a schedule II opioid drug. M... Start Date: 11/18/21 Stop Date: 12/18/21 Status: Ordered Problem List Condition Effective Dates [...] sustained remission(Confirmed) Active Tobacco use disorder(Confirmed) Active Vital Signs Most recent to oldest [Reference Range]: 1 Height 170 cm (11/11/21 8:01 AM) Blood Pressure [90-138/55-84 mm Hg] 131/ 82mm Hg (11/11/21 8:01 AM) Blood pressure sites Arm, left (11/11/21 8:01 AM) Social History Social History Type Response Tobacco Other: Smokes about 12 cigarettes daily. Prior to this, smoking about 1 PPD for 35 years.. Sex
--- OUTSIDE RECORDS SUMMARY | 2024-03-09 07:28 | XMS_ITS | Continuity of Care Document ---
Author Organization [facility] Address [address] [place] [address] sheri, [address] [place] [address]- Care Team Providers Care Postal Clerk Name Role Phone Rhonda Escobedo NP Primary Care Physician Encounter [facility] Date(s): 01/07/24 - 02/06/24 [facility] [address] [place] [address] Drive [address] [place], [place] [address] Attending Physician: AdmSam enriquez Admitting Physician: AdmtrSam Referring Physician: Admtr, Ar8 Allergies, Adverse Reactions, Alerts Substance Reaction Severity [...] 13-valent vaccine 05/03/19 Recorded Zoster Vaccine Live 7/3/17 Recorded influ virus vac, H1N1, inactive(oldterm) 08/14/09 Given pneumococcal 23-valent vaccine 08/14/09 Given tetanus/diphtheria/pertussis, acel(Tdap) 07/04/08 Recorded Medications Albuterol (Eqv-ProAir HFA) 90 mcg/inh inhalation aerosol 1 puffs, Inhalation, 4 times a day, PRN NEEDED FOR COUGH, # 8.5 each, 5 Refills, Maintenance, 09/20/23 21:34:00 EST, [facility]/pharmacy #1972, 25, 1 puffs Inhalation 4 times a day,PRN: NEEDED FOR COUGH, 170, cm, 09/17/23 8:42:00 EST, Height, 51, kg, 11... Start Date: 09/20/23 Status: Ordered amLODIPine 5 mg oral tablet 1 tablet, By Mouth, Daily, # 90 tablet, 1 Refills, Maintenance, 01/28/24 14:32:00 EDT, [facility] STORE 78979, 170, cm, 01/08/24 10:04:00 EDT, Height, 51, kg, 06/03/23 14:00:00 EST, Dry Weight Start Date: 01/28/24 Status: Ordered atorvastatin 20 mg oral tablet 1 tablet, By Mouth, Daily, # 90 tablet, 1 Refills, Maintenance, 07/29/23 9:02:00 EST, [facility], 170, cm, 06/23/23 10:13:00 EST, Height, 51, kg, 06/03/23 14:00:00 EST, Dry Weight Start Date: 07/29/23 Status: Ordered celecoxib 200 mg oral capsule 1 capsule = 200 mg, By Mouth, 2 times a day, # 14 capsule, 0 Refills, Maintenance, 06/04/23 13:40:00 EST, Capsule, [facility], Partial fill upon patient request if the prescription is for a schedule II opioid drug., 170, cm, 06/03/23 14:... Start Date: 06/04/23 Stop Date: 06/11/23 Status: Ordered cholecalciferol 50,000 intl units oral capsule 1 capsule = 50,000 International_Units, By Mouth, Every 7 days, # 13 capsule, 3 Refills, Maintenance, 01/28/24 15:41:00 EDT, Capsule, [facility]/pharmacy #1972, Partial fill upon patient request, 170, [...] Unknown, 5 Refills, Maintenance, 12/11/22 19:25:00 EDT, [facility] STORE 45475, 90, INSTILL 2 SPRAYS INTO EACH NOSTRIL 3 TIMES A DAY NEEDED FOR CONGESTION, 1... Start Date: 12/11/22 Status: Ordered lisinopril 10 mg oral tablet 1, tablet, By Mouth, Daily, # 90 tablet, Refills 1, Maintenance, 09/07/23 9:20:00 EST, Route to Pharmacy Electronically, [facility] STORE 77942, 170, cm, 07/29/23 14:04:00 EST, Height, 51, kg, 06/03/23 14:00:00 EST, Dry Weight Start Date: 09/07/23 Status: Ordered metoprolol 25 mg oral tablet 12.5 mg, 0.5, tablet, By Mouth, Every 12 hours, # 30 tablet, Refills 0, Tot. Refills 0, Maintenance, 06/04/23 13:43:00 EST, Route to Pharmacy Electronically, [facility], Partial fill upon patient request if the prescription is for a sche... Start Date: 06/04/23 Stop Date: 07/04/23 Status: Ordered nicotine 14 mg/24 hr transdermal film, extended release 1 patch, Topically, Daily, # 28 patch, 0 Refills, Maintenance, 07/27/23 14:23:00 EST, 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/pharmacy #1972, Partial fill uponpatient request if the prescription is for a schedu... Start Date: 01/26/24 Stop Date: 02/23/24 Status: Ordered OxyCONTIN 20 mg oral tablet, extended release 20 mg, 1, tablet, By Mouth, Every 12 hours, recycling assistant chacked fill 02/02/24, # 56 tablet, Refills 0, Tot. Refills 0, Maintenance, 01/26/24 8:16:00 EDT, Route to Pharmacy Electronically, [facility]/pharmacy #[id number], Partial fill upon patient request if [...] Confirmed Active Tobacco use disorder Confirmed Active 89504 r lung wedge resection Social History Social History Type Response Smoking Status Former smoker, quit more than 30 days ago; Total pack years: 45; entered on: 09/17/23 Sex Patient Care team information Care Team Personnel Name: Aurelia Yang RN Position: [facility] RN Member Role: Primary Care Nurse Name: Rhonda Escobedo NP Position: [facility] PCO Associate Professional Member Role: PCP Address: Address: [address] [place] [address], [address] [place], [place] [address] Name: Yue Delgado RN Position: [facility] RN Member Role: Primary Care Nurse Name: Debo Gagnon RN Position: S RN Member Role: Primary Care Nurse Name: Lisa Awad RN Position: [facility] RN Member Role: Primary Care Nurse Name: Elly Rodriges RN Position: [facility] SN RN Member Role: Primary Care Nurse Name: Nilda Pop RN Position: S RN Member Role: Primary Care Nurse Care Team Related Persons Name: CHARLINE DIOP Address: [place] [address] Name: ELDER ANDERSON Address: home [address] [place] [address] Name: MAEGAN ANDERSON Address: home [address] [place] [address]
--- OUTSIDE RECORDS SUMMARY | 2024-03-09 07:28 | XMS_ITS | Continuity of Care Document ---
Author Organization [facility] Address [address] [place] [address]- Care Team Providers Care Human Resources Benefits Coordinator Name Role Phone Fanny TOURE, Rhonda Primary Care Physician [phone] Encounter [facility] Date(s): 08/18/23 - 09/17/23 [facility] [address] [place] [address]- Allergies, Adverse Reactions, Alerts Substance Reaction Severity Status morphine 1 combative CONFUSED OUT OF IT Active 1hallucintations, confusion Immunizations Given and Recorded Vaccine Date Status Refusal Reason influenza virus vaccine, inactivated 04/02/23 Pedro rded influenza virus vaccine, inactivated 03/19/22 Pedro rded influenza virus vaccine, inactivated 03/03/21 Pedro rded influenza virus vaccine, inactivated 02/18/20 Pdero rded influenza virus vaccine, inactivated 02/26/18 Pedro [...] Refills, Maintenance, 05/18/23 13:33:00 EDT, [facility], 25, INHALE 1 PUFF 4 TIMES A DAY NEEDED FOR COUGH, 170, cm, 05/05/23 12:54:00 EDT, Height, 50, kg, 11/15/21 11:2... Start Date: 05/18/23 Status: Ordered amLODIPine 5 mg oral tablet 1 tablet, By Mouth, Daily, # 90 tablet, 1 Refills, Maintenance, 06/09/23 9:12:00 EST, [facility], 170, cm, 06/03/23 14:00:00 EST, Height, 51, kg, 06/03/23 14:00:00 EST, Dry Weight Start Date: 06/09/23 Status: Ordered atorvastatin 20 mg oral tablet 1 tablet, By Mouth, Daily, # 90 tablet, 1 Refills, Maintenance, 07/29/23 9:02:00 EST, [facility], 170, cm, 06/23/23 10:13:00 EST, Height, 51, kg, 06/03/23 14:00:00 EST, Dry Weight Start Date: 07/29/23 Status: Ordered celecoxib 200 mg oral capsule 1 capsule = 200 mg, By Mouth, 2 times a day, # 14 capsule, 0 Refills, Maintenance, 06/04/23 13:40:00 EST, Capsule, [facility], Partial fill upon [...] 06/04/23 13:40:00 EST, Route to Pharmacy Electronically, [facility], Partial fill uponpatient request if [...] Unknown, 5 Refills, Maintenance, 12/11/22 19:25:00 EDT, [facility] ST[facility] 78159, 90, INSTILL 2 SPRAYS INTO EACH NOSTRIL 3 TIMES A DAY NEEDED FOR CONGESTION, 1... Start Date: 12/11/22 Status: Ordered lisinopril 10 mg oral tablet 1, tablet, By Mouth, Daily, # 90 tablet, Refills 1, Maintenance, 09/07/23 9:20:00 EST, Route to Pharmacy Electronically, [facility] ST[facility] 17862, 170, cm, 07/29/23 14:04:00 EST, Height, 51, kg, 06/03/23 14:00:00 EST, Dry Weight Start Date: 09/07/23 Status: Ordered metoprolol 25 mg oral tablet 12.5 mg, 0.5, tablet, By Mouth, Every 12 hours, # 30 tablet, Refills 0, Tot. Refills 0, Maintenance, 06/04/23 13:43:00 EST, Route to Pharmacy Electronically, [facility], Partial fill upon patient request if the prescription is for a sche... 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 Start Date: 09/14/23 Stop Date: 10/12/23 Status: Ordered OxyCONTIN 20 mg oral tablet, extended release 20 mg, 1, tablet, By Mouth, Every 12 hours, school speech therapist chacked fill 09/15/23, # 56 tablet, Refills 0, Tot. Refills 0, Maintenance, 09/14/23 20:07:00 EST, Route to Pharmacy Electronically, [facility]/pharmacy #[id number],Partial fill upon patient request if [...] Confirmed Active Tobacco use disorder Confirmed Active 41352 r lung wedge resection Social History Social History Type Response Smoking Status Former smoker, quit more than 30 days ago; Total pack years: 45; entered on: 09/17/23 Sex Patient Care team information Care Team Personnel Name: Aurelia Yang RN Position: [facility] RN Member Role: Primary Care Nurse Name: Rhonda Escobedo NP Position: [facility] PCO Associate Professional Member Role: PCP Address: Address: [address] [place] [address], [address] [place], [place] [address] Name: Yue Delgado RN Position: [facility] RN Member Role: Primary Care Nurse Name: Debo Gagnon Position: S RN Member Role: Primary Care Nurse Name: Lisa Awad RN Position: S RN Member Role: Primary Care Nurse Name: Elly Rodriges RN Position: [facility] SN RN Member Role: Primary Care Nurse Name: Nilda Pop RN Position: S RN Member Role: Primary Care Nurse Care Team Related Persons Name: CHARLINE DIOP Address: [place] [address] Name: ELDER ANDERSON Address: home [address] [place] [address] Name: MAEGAN ANDERSON Address: home [address] [place] [address]
--- OUTSIDE RECORDS SUMMARY | 2024-03-09 07:28 | XMS_ITS | Continuity of Care Document ---
Author Organization [facility] Address [address] [place] [address]- Care Team Providers Care Node Js Developer Name Role Phone Fanny TOURE, Rhonda Primary Care Physician Encounter [facility] Date(s): 12/12/21 - 01/11/22 [facility] [address] [place] [id number]- Allergies, Adverse Reactions, Alerts Substance Reaction Severity [...] # 8.5 each, 5 Refills, [facility], 17, INHALE 2 PUFFS EVERY 4 HOURS NEEDED FOR WHEEZING, 170, cm, 11/15/21 11:23:00 EDT, Height, 50, kg, 11/15/21 11:23:00 EDT, Dry Weight Start Date: 11/17/21 Status: Ordered amLODIPine 5 mg oral tablet 1 tablet, By Mouth, Daily, # 90 tablet, 0 Refills, [facility], 170, cm, 11/15/21 11:23:00 EDT,Height, 50, kg, [...] EVERY DAY, # 90 tablet, 1 Refills, [facility] 547[facility], 170, cm, 12/17/21 8:41:00 EDT, Height, 50, [...] 2 Refills, Maintenance, 09/24/21 11:18:00 EST, Cream, [facility]/pharmacy #1234, Partial fill upon patient [...] Acute 01/19/22 17:07:00 EDT, 12/20/21 17:07:00 EDT, [facility]/pharmacy #1234, Partial fill upon patient request if the prescription is for a schedule II opioid drug., 2... Start Date: 12/20/21 Stop Date: 01/19/22 Status: Ordered lisinopril 10 mg oral tablet 1, tablet, By Mouth, Daily, # 30 tablet, Refills 1, Route to Pharmacy Electronically, [facility] STORE 09397, 170, cm, 12/05/21 10:11:00 EDT, Height, 50, kg, 11/15/21 11:23:00 EDT, Dry Weight Start Date: 12/13/21 Status: Ordered lisinopril 40 mg oral tablet See Instructions, TAKE 1 TABLET BY MOUTH EVERY DAY, # 90 tablet, 1 Refills, [facility] STORE 84565, 170, cm, 12/17/21 8:41:00 EDT, Height, 50, kg, 11/15/21 11:23:00 EDT, Dry Weight Start Date: 12/17/21 Status: Ordered Nicotrol Inhaler 10 mg inhalation device See Instructions, use 6 cartridges per day, # 84 capsule, 0 Refills, Maintenance, 04/15/21 10:30:00EDT, [facility]/pharmacy #1234, Partial fill upon patient request if the prescription is for a schedule IIopioid drug., use 6 cartridges per day, 170, cm, 09... Start Date: 04/15/21 Status: Ordered oxyCODONE 10 mg oral tablet 1 tablet = 10 mg, By Mouth, Every 6 hours, PRN as needed for severe pain, # 120 tablet, 0 Refills, Maintenance, 12/17/21 10:05:00 EDT, Tablet, [facility]/pharmacy #1234, Partial fill upon patient request ifthe prescription is for a schedule II opioid drug.... Start Date: 12/17/21 Stop Date: 01/16/22 Status: Ordered OxyCONTIN 10 mg oral tablet, extended release 10 mg, 1, tablet, By Mouth, Every 12 hours, # 60 tablet, Refills 0, Tot. Refills 0, Maintenance, 01/09/22 12:27:00 EDT, Route to Pharmacy Electronically, [facility]/pharmacy #[id number], in addition to his IR oxycodone, 170, cm, 12/31/21 8:21:00 EDT, Height, 50, k... Start Date: 01/09/22 Stop Date: 02/08/22 Status: Ordered Problem List Condition Effective Dates [...]
--- OUTSIDE RECORDS SUMMARY | 2024-03-09 07:28 | XMS_ITS | Continuity of Care Document ---
Author Organization [facility] Address Unknown Care Team Providers Care Humid System Operator Name Role Phone Rhonda Escobedo NP Primary Care Physician Encounter [facility] [place] Date(s): 10/11/21 - 11/10/21 [facility] Allergies, Adverse Reactions, Alerts [...] Recorded Medications amLODIPine 5 mg oral tablet 5 mg, 1, tablet, By Mouth, Daily, # 90 tablet, Refills 0, Tot. Refills 0, Maintenance, 10/17/21 8:30:00 EDT, Route to Pharmacy Electronically, [facility]/pharmacy #[id number], Partial fill upon patient request ifthe prescription is for a schedule II opioid drug.,... Start Date: 10/17/21 Status: Ordered Anusol-HC 2.5% cream with applicator 1 application, Rectally, 2 times a day, # 30 Gm, 1 Refills, Maintenance, 09/24/21 13:25:00 EST, Cream, [facility]/pharmacy #[id number], Partial fill upon patient [...] Maintenance, 06/19/21 8:09:00 EST, Tablet, [facility]/pharmacy #1234, Partial fill upon patient [...] 2 Refills, Maintenance, 09/24/21 11:18:00 EST, Cream, [facility]/pharmacy #1234, Partial fill upon patient request if the prescription is for a schedule II opioid drug., 1 application Topically 3 times a day,... Start Date: 09/24/21 Status: Ordered hydrocortisone topical 25 mg suppository 1 supp = 25 mg, Rectally, 2 times a day, # 28 supp, 0 Refills, Maintenance, 10/02/21 13:05:00 EDT, [facility] Partial fill upon patient request if the prescription is for a schedule II opioid drug., 170, cm, 10/02/21 10:36:00 EDT... Start Date: 10/02/21 Stop Date: 10/16/21 Status: Ordered lisinopril 40 mg oral tablet 1 tablet = 40 mg, By Mouth, Daily, # 30 tablet, 5 Refills, Maintenance, 07/03/21 10:04:00 EST, Tablet, [facility]/pharmacy #1234, Partial fill upon patient request if the prescription is for a schedule II opioid drug., 170, cm, 06/27/21 14:20:00 EST, Height,... Start Date: 07/03/21 Status: Ordered Nicotrol Inhaler 10 mg inhalation device See Instructions, use 6 cartridges per day, # 84 capsule, 0 Refills, Maintenance, 04/15/21 10:30:00EDT, [facility]/pharmacy #1234, Partial fill upon patient request if the prescription is for a schedule IIopioid drug., use 6 cartridges per day, 170, cm, 09... Start Date: 04/15/21 Status: Ordered oxyCODONE 5 mg oral tablet 5 mg, 1, tablet, By Mouth, Every 6 hours, PRN, for 7 days, # 28 tablet, Refills 0, Tot. Refills 0, Acute 11/15/21 9:10:00 EDT, Pain , Severe, 11/08/21 9:10:00 EDT, Route to Pharmacy Electronically, [facility]/pharmacy #1234, Partial fill upon patient request... Start Date: 11/08/21 Stop Date: 11/15/21 Status: Ordered ProAir HFA 90 mcg/inh inhalation aerosol 2 puffs, Inhalation, Every 4 hours, PRN NEEDED FOR WHEEZE, # 1 each, 5 Refills, Maintenance, 07/02/21 8:53:00 EST, [facility]/pharmacy #[id number], 2 puffs Inhalation Every [...]
--- OUTSIDE RECORDS SUMMARY | 2024-03-09 07:28 | XMS_ITS | Continuity of Care Document ---
Author Organization [facility] Adult Address [address] [place] [address]- Care Team Providers Care Cryogenics Repairer Name Role Phone Fanny TOURE, Rhonda Primary Care Physician [facility]counter [facility] Date(s): 12/07/23 - 01/06/24 [facility] Adult [address] [place] [address]- Allergies, Adverse Reactions, Alerts Substance Reaction Severity [...] Refills, Maintenance, 06/09/23 9:12:00 EST, [facility], 170, cm, 06/03/23 14:00:00 EST, Height, 51, kg, 06/03/23 14:00:00 EST, Dry Weight Start Date: 06/09/23 Status: Ordered atorvastatin 20 mg oral tablet 1 tablet, By Mouth, Daily, # 90 tablet, 1 Refills, Maintenance, 07/29/23 9:02:00 EST, [facility], 170, cm, 06/23/23 10:13:00 EST, Height, 51, kg, 06/03/23 14:00:00 EST, Dry Weight Start Date: 07/29/23 Status: Ordered celecoxib 200 mg oral capsule 1 capsule = 200 mg, By Mouth, 2 times a day, # 14 capsule, 0 Refills, Maintenance, 06/04/23 13:40:00 EST, Capsule, [facility], Partial fill upon patient [...] 06/04/23 13:40:00 EST, Route to Pharmacy Electronically, [facility], Partial fill uponpatient request if [...] Unknown, 5 Refills, Maintenance, 12/11/22 19:25:00 EDT, [facility], 90, INSTILL 2 SPRAYS INTO EACH NOSTRIL 3 TIMES A DAY NEEDED FOR CONGESTION, 1... Start Date: 12/11/22 Status: Ordered lisinopril 10 mg oral tablet 1, tablet, By Mouth, Daily, # 90 tablet, Refills 1, Maintenance, 09/07/23 9:20:00 EST, Route to Pharmacy Electronically, [facility] 58129, 170, cm, 07/29/23 14:04:00 EST, Height, 51, kg, 06/03/23 14:00:00 EST, Dry Weight Start Date: 09/07/23 Status: Ordered metoprolol 25 mg oral tablet 12.5 mg, 0.5, tablet, By Mouth, Every 12 hours, # 30 tablet, Refills 0, Tot. Refills 0, Maintenance, 06/04/23 13:43:00 EST, Route to Pharmacy Electronically, [facility], Partial fill upon patient request if the prescription is for a sche... Start Date: 06/04/23 Stop Date: 07/04/23 Status: Ordered nicotine 14 mg/24 hr transdermal film, extended release 1 patch, Topically, Daily, # 28 patch, 0 Refills, Maintenance, 07/27/23 14:23:00 EST, [facility] STORE 24325, 28, APPLY 1 PATCH TOPICALLY DAILY, 170, cm, 06/23/23 10:13:00 EST, Height, 51, kg, 06/03/23 14:00:00 EST, Dry Weight Start Date: 07/27/23 Status: Ordered oxyCODONE 10 mg oral tablet 1 tablet = 10 mg, By Mouth, Every 6 hours, PRN as needed for pain, program facilitator assessed fill 01/05/24, # 112tablet, 0 Refills, Maintenance, 12/26/23 6:35:00 EDT, Tablet, [facility]/pharmacy #1972, Partial fill uponpatient request if the prescription is for a schedu... Start Date: 12/26/23 Stop Date: 01/23/24 Status: Ordered OxyCONTIN 20 mg oral tablet, extended release 20 mg, 1, tablet, By Mouth, Every 12 hours, program facilitator chacked fill 01/05/24, # 56 tablet, Refills 0, Tot. Refills 0, Maintenance, 12/26/23 6:35:00 EDT, Route to Pharmacy Electronically, [facility]/pharmacy #1972, Partial fill upon patient request if the prescriptio... Start Date: 12/26/23 Stop Date: 01/23/24 Status: Ordered Vasile See Instructions, # 1 [...] Confirmed Active Tobacco use disorder Confirmed Active 19122 r lung wedge resection Social History Social History Type Response Smoking Status Former smoker, quit more than 30 days ago; Total pack years: 45; entered on: 09/17/23 Sex Patient Care team information Care Team Personnel Name: Aurelia Yang RN Position: [facility] RN Member Role: Primary Care Nurse Name: Rhonda Escobedo NP Position: [facility] PCO Associate Professional Member Role: PCP Address: Address: [address] [place] [address], [address] [place], [place] [address] Name: Yue Delgado RN Position: [facility] RN Member Role: Primary Care Nurse Name: Debo Gagnon RN Position: S RN Member Role: Primary Care Nurse Name: Lisa Awad RN Position: S RN Member Role: Primary Care Nurse Name: Elly Rodriges RN Position: [facility] RN Member Role: Primary Care Nurse Name: Nilda Pop RN Position: S RN Member Role: Primary Care Nurse Care Team Related Persons Name: CHARLINE DIOP Address: [place] [address] Name: ELDER ANDERSON Address: home [address] [place] [address] Name: MAEGAN ANDERSON Address: home [address] [place] [address]
--- OUTSIDE RECORDS SUMMARY | 2024-03-09 07:28 | XMS_ITS | Continuity of Care Document ---
Author Organization [facility] Address [address] [place] [address]- Care Team Providers Care Cooker Soda Name Role Phone Tonja TOURE, Jeannette Olivera Primary Care Physicia n En[place] [facility] [place] Date(s): 09/06/21 - 10/06/21 [facility] [address] [place] [address] Allergies, Adverse Reactions, Alerts Substance Reaction Severity [...] 5 Refills, Maintenance, 06/19/21 8:09:00 EST, Tablet, [facility]/pharmacy #1234, Partial fill upon patient request [...] 84 capsule, 0 Refills, Maintenance, 04/15/21 10:30:00EDT, [facility]/pharmacy #1234, Partial fill upon patient request if the prescription is for a schedule IIopioid drug., use 6 cartridges per day, 170, cm, ... Start Date: 04/15/21 Status: Ordered ProAir HFA 90 mcg/inh inhalation aerosol 2 puffs, Inhalation, Every 4 hours, PRN NEEDED FOR WHEEZE, # 1 each, 5 Refills, Maintenance, 07/02/21 8:53:00 EST, [facility]/pharmacy #1234, 2 puffs Inhalation Every 4 [...]
--- OUTSIDE RECORDS SUMMARY | 2024-03-09 07:28 | XMS_ITS | Continuity of Care Document ---
Author Organization [facility] Address Unknown Care Team Providers Care Charge Accounts Audit Clerk Name Role Phone Tonja TOURE, Jeannette Olivera Primary Care Physicia n [place] [facility] [place]16[place]21 - 06/15/21 [facility] Allergies, Adverse Reactions, Alerts Substance [...] capsule, 0 Refills, Maintenance, 04/15/21 10:30:00EDT, [facility]/pharmacy #1234, Partial fill upon patient [...]
--- OUTSIDE RECORDS SUMMARY | 2024-03-09 07:28 | XMS_ITS | Continuity of Care Document ---
Author Organization [facility] Adult Address [address] [place] [address]- Care Team Providers Care Engagement Lead Name Role Phone Tonja TOURE, Jeannette Olivera Primary Care Physicia n Encounter [facility] Date(s): 09/24/21 - 10/24/21 [facility] Adult [address] [place] [address]- Allergies, Adverse Reactions, Alerts Substance Reaction Severity [...] 10/17/21 8:30:00 EDT, Route to Pharmacy Electronically, [facility]/pharmacy #1234, Partial fill upon patient request ifthe prescription is for a schedule II opioid drug.,... Start Date: 10/17/21 Status: Ordered Anusol-HC 2.5% cream with applicator 1 application, Rectally, 2 times a day, # 30 Gm, 1 Refills, Maintenance, 09/24/21 13:25:00 EST, Cream, [facility]/pharmacy #1234, Partial fill upon patient request if the prescription is for a schedule II opioid drug., 1 application Rectally 2 times a day, 1... Start Date: 09/24/21 Status: Ordered Anusol-HC 2.5% cream with applicator 1 application, Rectally, 2 times a day, # 30 Gm, 1 Refills, Maintenance, 06/27/21 14:24:00 EST, Cream, [facility]/pharmacy #1234, Partial fill upon patient request if the prescription is for a schedule II opioid drug., 1 application Rectally 2 times a day, 1... Start Date: 06/27/21 Status: Ordered atorvastatin 20 mg oral tablet 1 tablet = 20 mg, By Mouth, Daily, # 30 tablet, 5 Refills, Maintenance, 06/19/21 8:09:00 EST, Tablet, [facility]/pharmacy #1234, Partial fill upon patient [...] 2 Refills, Maintenance, 09/24/21 11:18:00 EST, Cream, [facility]/pharmacy #1234, Partial fill upon patient [...] each, 5 Refills, Maintenance, 07/02/21 8:53:00 EST, [facility]/pharmacy #1234, 2 puffs Inhalation Every 4 [...]
--- OUTSIDE RECORDS SUMMARY | 2024-03-09 07:28 | XMS_ITS | Continuity of Care Document ---
Author Organization [facility] Adult Address [address] [place] [address]- Care Team Providers Care Neck Fitter Name Role Phone Tonja TOURE, Jeannette Olivera Primary Care Physicia n Encounter [facility] [place] Date(s): 03/07/21 - 03/14/[address] [address]- Encounter Diagnosis Bradycardia(Discharge Diagnosis) - 03/07/21 Anxiety(Discharge Diagnosis) - 03/07/21 Attending Physician: Not on Staff, Attending MD [...] 3 Refills, Maintenance, 03/07/21 15:26:00 EDT, Tablet, [facility]/pharmacy #1234, Partial fill upon patient [...] 03/13/21 9:18:00 EDT, Route to Pharmacy Electronically, [facility]/pharmacy #1234, Partial fill upon patient request if the prescription is for a schedule II opioid drug.... Start Date: 03/13/21 Status: Ordered omeprazole 20 mg oral delayed release tablet 1 tablet = 20 mg, By Mouth, Daily, # 90 tablet, 1 Refills, Maintenance, 08/23/20 13:22:00 EST, CR Tablet, [facility]/pharmacy #1234, Partial fill upon patient request if the prescription is for a schedule II opioid drug., 170, cm, 08/21/20 6:19:00 EST, Heigh... Start Date: 08/23/20 Status: Ordered ProAir HFA 90 mcg/inh inhalation aerosol 2 puffs, Inhalation, Every 4 hours, PRN NEEDED FOR WHEEZE, # 1 each, 5 Refills, Maintenance, 03/01/21 12:03:00 EDT, [facility]/pharmacy #1234, 2 puffs Inhalation Every 4 hours,PRN: [...] sustained remission(Confirmed) Active Tobacco use disorder(Confirmed) Active Diagnosis Diagnosis Type Effective Dates Health Status Clini jesika Service Informant Bradycardia Discharge Diagnosis 03/07/21 Anxiety Discharge Diagnosis 03/07/21 Vital Signs Most recent to oldest [Reference Range]: 1 2 Height 170 cm (03/07/21 8:45 AM) 170 cm (03/07/21 8:36 AM) Weight 58 kg (03/07/21 8:36 AM) Oxygen Saturation [94-100 %] 98 % (03/07/21 8:36 AM) Pulse Rate [55-90 bpm] 44 bpm *L* (03/07/21 8:36 AM) Body Mass Index [18.5-24.99] 20.07 (03/07/21 8:36 AM) Blood Pressure [90-138/55-84 mm Hg] 180/ 90mm Hg *H* (03/07/21 8:45 AM) 190/92mm Hg *H* (03/07/21 8:36 AM) Mode of Delivery (Oxygen) Room air (03/07/21 8:36 AM) Blood pressure sites Arm, right (03/07/21 8:45 AM) Arm, left (03/07/21 8:36 AM) Weight Obtained Via Standing scale (03/07/21 8:36 AM) Social History Social History Type Response Tobacco Other: Smokes about 12 cigarettes daily. Prior to this, smoking about 1 PPD for 35 years.. Sex
--- OUTSIDE RECORDS SUMMARY | 2024-03-09 07:28 | XMS_ITS | Continuity of Care Document ---
Author Organization [facility] Address [address] [place] [address] [address], [address] [place] [address]- Care Team Providers Care Leg Man Name Role Phone Jareth ELDER, Chaim Howe Primary Care Physician Encounter [facility] Date(s): 07/06/19 - 08/10/19 [facility] [address] [place] [address] Drive, [address] [place] [address]- [facility] Attending Physician: Harjit Lee MD Referring Physician: Tonja TOURE, Jeannette Olivera Allergies, [...] 07/14/19 10:49:00 EST, Route to Pharmacy Electronically, [facility]/pharmacy #1234, 170, cm, 07/04/19 9:01:00 EST, Height, 59.4, kg, 04/07/19 15:15:00 EDT, Dry Weight Start Date: 07/14/19 Status: Ordered meloxicam 7.5 mg oral tablet 1 tablet = 7.5 mg, By Mouth, Daily, # 30 tablet, 0 Refills, Maintenance, 07/05/19 14:48:36 EST, Tablet, [facility]/pharmacy #1234, 170, cm, 07/04/19 9:01:50 EST, Height, 59.4, kg, 04/07/19 15:15:55 EDT, DryWeight Start Date: 07/05/19 Status: Ordered predniSONE 5 mg oral tablet [...] Replace Required Details, Route to Pharmacy Electronically, [id number]... Start Date: 04/19/19 Status: Ordered Suboxone 8 [...]
--- OUTSIDE RECORDS SUMMARY | 2024-03-09 07:29 | XMS_ITS | Continuity of Care Document ---
Author Organization [facility] Adult Address [address] [place] [address]- Care Team Providers Care Patternmaker Apprentice Metal Name Role Phone Fanny TOURE, Rhonda Primary Care Physician Encounter [facility] Date(s): 05/19/23 - 06/18/23 [facility] Adult [address] [place] [address]- Allergies, Adverse Reactions, Alerts Substance Reaction Severity [...] Refills, Maintenance, 05/18/23 13:33:00 EDT, [facility], 25, INHALE 1 PUFF 4 TIMES A DAY NEEDED FOR COUGH, 170, cm, 05/05/23 12:54:00 EDT, Height, 50, kg, 11/15/21 11:2... Start Date: 05/18/23 Status: Ordered amLODIPine 5 mg oral tablet 1 tablet, By Mouth, Daily, # 90 tablet, 1 Refills, Maintenance, 06/09/23 9:12:00 EST, [facility], 170, cm, 06/03/23 14:00:00 EST, Height, 51, kg, 06/03/23 14:00:00 EST, Dry Weight Start Date: 06/09/23 Status: Ordered celecoxib 200 mg oral capsule 1 capsule = 200 mg, By Mouth, 2 times a day, # 14 capsule, 0 Refills, Maintenance, 06/04/23 13:40:00 EST, Capsule, [facility], Partial fill upon patient request if the prescription is for a schedule II opioid drug., 170, cm, 06/03/23 14:... Start Date: 06/04/23 Stop Date: 06/11/23 Status: Ordered cholecalciferol 50,000 intl units oral capsule 1 capsule = 50,000 International_Units, By Mouth, Every 7 days, # 13 capsule, 3 Refills, Maintenance, 02/08/23 9:24:00 EDT, Capsule, [facility]/pharmacy #1972, Partial fill upon patient request, [...] 06/04/23 13:40:00 EST, Route to Pharmacy Electronically, [facility], Partial fill uponpatient request [...] Unknown, 5 Refills, Maintenance, 12/11/22 19:25:00 EDT, [facility] 57498, 90, INSTILL 2 SPRAYS INTO EACH NOSTRIL 3 TIMES A DAY NEEDED FOR CONGESTION, 1... Start Date: 12/11/22 Status: Ordered metoprolol 25 mg oral tablet 12.5 mg, 0.5, tablet, By Mouth, Every 12 hours, # 30 tablet, Refills 0, Tot. Refills 0, Maintenance, 06/04/23 13:43:00 EST, Route to Pharmacy Electronically, [facility], Partial fill upon patient [...] 0 Refills, Maintenance, 06/12/23 7:48:00 EST, Patch, [facility]/pharmacy #1972, Partial fill upon patient request [...] 1, tablet, By Mouth, Every 12 hours, metal bonding assembler chacked fill 05/26/2023, # 56 tablet, Refills 0, Tot. Refills 0, Maintenance, 05/24/23 8:17:00 EST, Route to Pharmacy Electronically, [facility]/pharmacy #1972, Partial fill upon patient request [...] use disorder Confirmed Active Underweight Confirmed Active 98351 r lung wedge resection Social History Social History Type Response Tobacco Use: 4 or less cigar ettes(less than 1/4 pack)/day in last 30 days. Other: 2-3 cig/d x 40 years; was at 0.5 pp/d. Sex Patient Care team information Care Team Personnel Name: Aurelia Yang RN Position: [facility] RN Member Role: Primary Care Nurse Name: Rhonda sEcobedo NP Position: [facility] PCO Associate Professional Member Role: PCP Address: Address: [address], 3rd [place] [address]- Name: Yue Delgado RN Position: [facility] RN Member Role: Primary Care Nurse Name: Debo Gagnon Position: [facility] RN Member Role: Primary Care Nurse Name: Lisa Awad RN Position: [facility] RN Member Role: Primary Care Nurse Name: Elly Rodriges RN Position: [facility] SN RN Member Role: Primary Care Nurse Name: Nilda Pop RN Position: [facility] RN Member Role: Primary Care Nurse Care Team Related Persons Name: REVA DIOPFER Address: [place] [address] Name: ELDER ANDERSON Address: home [address] [place] [address] Name: MAEGAN ANDERSON Address: home [address] [place] [address]
--- OUTSIDE RECORDS SUMMARY | 2024-03-09 07:29 | XMS_ITS | Continuity of Care Document ---
Author Organization [facility] Address Unknown Care Team Providers Care Nuclear Power Reactor Operator Name Role Phone Tonja TOURE, Jeannette Olivera Primary Care Physicia n En[place] [facility] [place] Date(s): 03/06/21 - 03/13/21 [facility] Encounter Diagnosis Achalasia(Discharge Diagnosis) - 03/06/21 Attending Physician: Garrison Pepper MD Referring Physician: Tonja TOURE, Jeannette Olivera [...] 3 Refills, Maintenance, 03/07/21 15:26:00 EDT, Tablet, [facility]/pharmacy #1234, Partial fill upon patient request if [...] 03/13/21 9:18:00 EDT, Route to Pharmacy Electronically, [facility]/pharmacy #1234, Partial fill upon patient request if the prescription is for a schedule II opioid drug.... Start Date: 03/13/21 Status: Ordered omeprazole 20 mg oral delayed release tablet 1 tablet = 20 mg, By Mouth, Daily, # 90 tablet, 1 Refills, Maintenance, 08/23/20 13:22:00 EST, CR Tablet, [facility]/pharmacy #1234, Partial fill upon patient request if the prescription is for a schedule II opioid drug., 170, cm, 08/21/20 6:19:00 ESTLia... Start Date: 08/23/20 Status: Ordered ProAir HFA 90 mcg/inh inhalation aerosol 2 puffs, Inhalation, Every 4 hours, PRN NEEDED FOR WHEEZE, # 1 each, 5 Refills, Maintenance, 03/01/21 12:03:00 EDT, [facility]/pharmacy #1234, 2 puffs Inhalation Every 4 hours,PRN: [...] Dates Health Status Clini jesika Service Informant Achalasia Discharge Diagnosis 03/06/21 Vital Signs Most recent to oldest [Reference Range]: 1 Height 170 cm (03/06/21 8:42 AM) Weight 56.8 kg (03/06/21 8:42 AM) Pulse Rate [55-90 bpm] 48 bpm *L* (03/06/21 8:42 AM) Body Mass Index [18.5-24.99] 19.65 (03/06/21 8:42 AM) Blood Pressure [90-138/55-84 mm Hg] 190/ 87mm Hg *H* (03/06/21 8:42 AM) Respiratory Rate [16-30 br/min] 16 br/mi n (03/06/21 8:42 AM) Temperature [96.8-100.4 DegF] 96.8 DegF (03/06/21 8:42 AM) Blood pressure sites Arm, right (03/06/21 8:42 AM) Temperature Route Temporal (03/06/21 8:42 AM) Weight Obtained Via Standing scale (03/06/21 8:42 AM) Social History Social History Type Response Tobacco Other: Smokes about 12 cigarettes daily. Prior to this, smoking about 1 PPD for 35 years.. Sex
--- OUTSIDE RECORDS SUMMARY | 2024-03-09 07:29 | XMS_ITS | Continuity of Care Document ---
Author Organization [facility] Address [address] [place] [id number]- Care Team Providers Care Food Broker Name Role Phone Rhonda Escobedo NP Primary Care Physician [phone] Encounter [facility] Date(s): 04/01/22 - 05/01/22 [facility] [address] [place] [address] [place] [id number] Attending Physician: AdmSam enriquez [...] EVERY DAY, # 90 tablet, 1 Refills, [facility]205, 170, cm, 12/17/21 8:41:00 EDT, Height, 50, [...] 2 Refills, Maintenance, 09/24/21 11:18:00 EST, Cream, [facility]/pharmacy #1234, Partial fill upon patient request if the prescription is for a schedule II opioid drug., 1 application Topically 3 times a day,... Start Date: 09/24/21 Status: Ordered hydrocortisone topical 25 mg suppository 1 supp = 25 mg, Rectally, 2 times a day, # 28 supp, 0 Refills, Maintenance, 10/02/21 13:05:00 EDT, Suppository, [facility]/pharmacy #1234, Partial fill upon patient request if the prescription is for a schedule II opioid drug., 170, cm, 10/02/21 10:36:00 EDT... Start Date: 10/02/21 Stop Date: 10/16/21 Status: Ordered ipratropium nasal 21 mcg/inh spray See Instructions, INSTILL 2 SPRAYS INTO EACH NOSTRIL 3 TIMES A DAY NEEDED FOR CONGESTION, # 30 Unknown, 3 Refills, [facility] 43063, 30, INSTILL 2 SPRAYS INTO EACH NOSTRIL 3 TIMES A DAY NEEDED FOR CONGESTION, 170, cm, 12/31/21 8:21:00 EDT, Height... Start Date: 03/03/22 Status: Ordered lisinopril 10 mg oral tablet 1, tablet, By Mouth, Daily, # 90 tablet, Refills 1, Tot. Refills 1, Maintenance, 02/16/22 16:25:00 EDT, [facility], 170, cm, 12/31/21 8:21:00 EDT, Height, 50, kg, 11/15/21 11:23:00 EDT, Dry Weight Start Date: 02/16/22 Status: Ordered Nicotrol Inhaler 10 mg inhalation device See Instructions, USE 6 CARTRIDGES PER DAY, # 168 Unknown, 0 Refills, Maintenance, 02/03/22 9:21:00EDT, [facility]/pharmacy #1234, 28, USE 6 CARTRIDGES PER DAY, 170, cm, 12/31/21 8:21:00 EDT, Height, 50, kg, 11/15/21 11:23:00 EDT, Dry Weight Start Date: 02/03/22 Status: Ordered oxyCODONE 10 mg oral tablet 1 tablet = 10 mg, By Mouth, Every 6 hours, PRN as needed for severe pain, fill on 05/02/22, # 112 tablet, 0 Refills, Maintenance, 04/17/22 8:05:00 EDT, Tablet, [facility]/pharmacy #1234, Partial fill upon patient request if the prescription is for a schedule... Start Date: 04/17/22 Stop Date: 05/15/22 Status: Ordered OxyCONTIN 10 mg oral tablet, extended release 10 mg, 1, tablet, By Mouth, Every 12 hours, fill on 05/02/22, # 56 tablet, Refills 0, Tot. Refills 0, Maintenance, 04/17/22 8:05:00 EDT, Route to Pharmacy Electronically, [facility]/pharmacy #[id number], in addition to his IR oxycodone, 170, [...] Personnel Name: Rhonda Escobedo NP Address: Address: [address] [place] [address], [address] [place], [place] [address]
--- OUTSIDE RECORDS SUMMARY | 2024-03-09 07:29 | XMS_ITS | Continuity of Care Document ---
Author Organization [facility] Adult Address [address] [place] [address]- Care Team Providers Care Metal Gauge Maker Name Role Phone Tonja TOURE, Jeannette Olivera Primary Care Physicia n Encounter [facility] [place] [place] Date(s): 05/16/21 - 06/15/21 [facility] [address] [place] [address] Allergies, Adverse Reactions, Alerts Substance Reaction [...]
--- OUTSIDE RECORDS SUMMARY | 2024-03-09 07:29 | XMS_ITS | Continuity of Care Document ---
Author Organization [facility] Address [address] [place] [address] [address], [address] [place] [address]- Care Team Providers Care Keyboard Instrument Tuner Name Role Phone Rhonda Escobedo NP Primary Care Physician [phone] [facility]counter [facility] Date(s): 01/07/24 - 01/14/24 [facility] [address] [place] [address] Drive [address] [place], [place] [address] Attending Physician: Not on Staff, Attending MD [...] Refills, Maintenance, 06/09/23 9:12:00 EST, [facility], 170, cm, 06/03/23 14:00:00 EST, Height, 51, kg, 06/03/23 14:00:00 EST, Dry Weight Start Date: 06/09/23 Status: Ordered atorvastatin 20 mg oral tablet 1 tablet, By Mouth, Daily, # 90 tablet, 1 Refills, Maintenance, 07/29/23 9:02:00 EST, [facility], 170, cm, 06/23/23 10:13:00 EST, Height, 51, kg, 06/03/23 14:00:00 EST, Dry Weight Start Date: 07/29/23 Status: Ordered celecoxib 200 mg oral capsule 1 capsule = 200 mg, By Mouth, 2 times a day, # 14 capsule, 0 Refills, Maintenance, 06/04/23 13:40:00 EST, Capsule, [facility], Partial fill upon patient request [...] 06/04/23 13:40:00 EST, Route to Pharmacy Electronically, [facility], Partial fill uponpatient request [...] Unknown, 5 Refills, Maintenance, 12/11/22 19:25:00 EDT, [facility] 19168, 90, INSTILL 2 SPRAYS INTO EACH NOSTRIL 3 TIMES A DAY NEEDED FOR CONGESTION, 1... Start Date: 12/11/22 Status: Ordered lisinopril 10 mg oral tablet 1, tablet, By Mouth, Daily, # 90 tablet, Refills 1, Maintenance, 09/07/23 9:20:00 EST, Route to Pharmacy Electronically, [facility] 170[facility], 170, cm, 07/29/23 14:04:00 EST, Height, 51, kg, 06/03/23 14:00:00 EST, Dry Weight Start Date: 09/07/23 Status: Ordered metoprolol 25 mg oral tablet 12.5 mg, 0.5, tablet, By Mouth, Every 12 hours, # 30 tablet, Refills 0, Tot. Refills 0, Maintenance, 06/04/23 13:43:00 EST, Route to Pharmacy Electronically, [facility], Partial fill upon patient request if the prescription is for a sche... Start Date: 06/04/23 Stop Date: 07/04/23 Status: Ordered nicotine 14 mg/24 hr transdermal film, extended release 1 patch, Topically, Daily, # 28 patch, 0 Refills, Maintenance, 07/27/23 14:23:00 EST, [facility] STORE 41866, 28, APPLY 1 PATCH TOPICALLY DAILY, 170, cm, 06/23/23 10:13:00 EST, Height, 51, kg, 06/03/23 14:00:00 EST, Dry Weight Start Date: 07/27/23 Status: Ordered oxyCODONE 10 mg oral tablet 1 tablet = 10 mg, By Mouth, Every 6 hours, PRN as needed for pain, director industrial nursing assessed fill 01/05/24, # 112tablet, 0 Refills, Maintenance, 12/26/23 6:35:00 EDT, Tablet, [facility]/pharmacy #[id number], Partial fill uponpatient request if the prescription is for a schedu... Start Date: 12/26/23 Stop Date: 01/23/24 Status: Ordered OxyCONTIN 20 mg oral tablet, extended release 20 mg, 1, tablet, By Mouth, Every 12 hours, director industrial nursing chacked fill 01/05/24, # 56 tablet, Refills 0, Tot. Refills 0, Maintenance, 12/26/23 6:35:00 EDT, Route to Pharmacy Electronically, [facility]/pharmacy #[id number], Partial fill [...] Confirmed Active Tobacco use disorder Confirmed Active 49723 r lung wedge resection Vital Signs Most recent to oldest [Reference Range]: 1 Height 170 cm (01/07/24 10:38 AM) Weight 56.1 kg (01/07/24 10:38 AM) Oxygen Saturation [94-100 %] 96 % (01/07/24 10:38 AM) Pulse Rate [55-90 bpm] 63 bpm (01/07/24 10:38 AM) Body Mass Index [18.5-24.99 kg/m2] 19.41 kg/m2 (01/07/24 10:38 AM) Blood Pressure [90-138/55-84 mm Hg] 118/ 68mm Hg (01/07/24 10:38 AM) Temperature [96.8-100.4 DegF] 97.4 DegF (01/07/24 10:38 AM) Mode of Delivery (Oxygen) Room air (01/07/24 10:38 AM) Blood pressure sites Arm, left (01/07/24 10:38 AM) Temperature Route Temporal (01/07/24 10:38 AM) Weight Obtained Via Standing scale (01/07/24 10:38 AM) Social History Social History Type Response Smoking Status Former smoker, quit more than 30 days ago; Total pack years: 45; entered on: 09/17/23 Sex Note * Rebekah Newell: PERFORM Event Display: Patient Education/Instruction Authored Date: Ambulatory Adult Visit Summary [facility] [address] [place] [address] Drive [address] [place] [address] Name: MIREYA ANDERSON : 1955?? Visit: 01/07/2024 10:35?? Ambulatory Visit Instructions ?? Your Care Team Primary Care Provider Rhonda Escobedo NP? This Visit Provider Pennie Luis NP Vitals Signs Temperature: 97.4 DegF Height: 170 cm Pulse Rate: 63 bpm Weight: 56.1 kg Systolic Blood Pressure: 118 mm Hg Body Mass Index: 19.41 kg/m2 Diastolic Blood Pressure: 68 mm Hg Body surface area: 1.63 Oxygen Saturation: 96 % ?? What to do next Scheduled Follow-Up Appointments Thursday 10:35 AM EDT ?? With: Rhonda Escobedo NP Where: [facility] [address] [place] [address]- Status: Pending Follow-Up Appointments Follow Up with??Pennie Luis NP When:??06/30/2024 09:00 AM EST Where: [address] [place] [address] Drive [address] [facility] [place] [address]- Future Orders CBC - Once, *Est. 05/04/23, Order for Today?? C Reactive Protein - Once, *Est. 05/04/23, Order for Today?? Sedimentation Rate - Once, *Est. 05/04/23, Order for Today?? Creatinine - Once, *Est. 12/07/23 +/- 30 days, Single or Recurring Future Order?? Fentanyl QN Urine Toxicology - Routine, Once, 12/01/23 8:43:00 EDT, Order for Today, [facility], Urine?? Heroin Metabolite QN, Urine Toxicology - Routine, Once, 12/01/23 8:43:00 EDT, Order for Today, [facility], Urine?? Oxycodone Screen Urine - Routine, Once, 12/01/23 8:43:00 EDT, Order for Today, [facility], Urine?? Methadone Urine - Routine, Once, 12/01/23 8:43:00 EDT, Order for Today, [facility], Urine?? Cocaine Urine Screen - Routine, Once, 12/01/23 8:43:00 EDT, Order for Today, [facility], Urine?? Barbiturate Urine Screen - Routine, Once, 12/01/23 8:43:00 EDT, Order for Today, [facility], Urine?? Opiate Screen Urine - Routine, Once, 12/01/23 8:43:00 EDT, Order for Today, [facility], Urine?? Amphetamine Urine Screen - Routine, Once, 12/01/23 8:43:00 EDT, Order for Today, [facility], Urine?? Buprenorphine & Nalox Urine Toxicology - Routine, Once, 12/01/23 8:43:00 EDT, Order for Today, [facility], Urine?? Opiates Urine with Confirmation - Routine, Once, 12/01/23 8:43:00 EDT, Order for Today, [facility], Urine?? Misc Referral Lab Test - Routine, Once, 12/01/23 8:43:00 EDT, Order for Today, [facility], OTHER?? Creatinine - Routine, Once, 06/13/24 16:32:00 EST, Single or Recurring Future Order, [facility], Blood?? Medications The list below reflects the information in our records and provided by you today along with any changes made during this visit. Please continue your medications until treatment is completed or stopped by your provider. If this is different from the information you have or there are other questions,please contact the prescribing provider. What How Much When Why Instructions Unchanged Albuterol (Albuterol (Eqv-ProAir HFA) 90 mcg/ inh inhalation aerosol) 1 puff(s) Inhalation 4 times a day as needed for NEEDED FOR COUGH Unchanged Amlodipine (amLODIPine 5 mg oral tablet) 1 tab(s) Oral Daily Unchanged Atorvastatin (atorvastatin 20 mg oral tablet) 1 tab(s) Oral Daily Unchanged Celecoxib (celecoxib 200 mg oral capsule) 1 capsule Oral Twice a day Duration: 7 Days Unchanged Cholecalciferol (cholecalciferol 50,000 intl units oral capsule) 1 capsule Oral Every 7 days Duration: 90 Days Unchanged Clonazepam 1 Milligram Oral 3 times a day as needed for Anxiety Unchanged Durable Medical Equipment (Home Blood Pressure Monitor) See instructions Use to check blood pressure at home. ?? Unchanged Durable Medical Equipment (Walker) See instructions Chronic back pain Lumbar disc herniation Knee pain Fatigue DX: M54.9, M25.569, M25.559 Rollator walker ?? Unchanged Gabapentin (gabapentin 300 mg oral capsule) 1 capsule Oral 3 times a day Duration: 21 Days Unchanged Ipratropium Nasal (ipratropium nasal 21 mcg/ inh spray) See instructions INSTILL 2 SPRAYS INTO EACH NOSTRIL 3 TIMES A DAY NEEDED FOR CONGESTION ?? Unchanged Lisinopril (lisinopril 10 mg oral tablet) 1 tab(s) Oral Daily Unchanged Metoprolol (metoprolol 25 mg oral tablet) 0.5 tab(s) Oral Every 12 hours Duration: 30 Days Unchanged Miscellaneous Rx (Ensure) See instructions 3 cans daily to maintain weight. Equal numbers chocolate and strawberry. Dx achalasia ?? Unchanged Nicotine (nicotine 14 mg/ 24 hr transdermal film, extended release) 1 patch(es) Topically Daily Unchanged Oxycodone (oxyCODONE 10 mg oral tablet) 1 tab(s) Oral Every 6 hours as needed for as needed for pain Degenerative joint disease (DJD) of lumbar spine Duration: 28 Days director industrial nursing assessed fill ?? Unchanged Oxycodone (OxyCONTIN 20 mg oral tablet, extended release) 1 tab(s) Oral Every 12 hours Degenerative joint disease (DJD) of lumbar spine Duration: 28 Days director industrial nursing chacked fill ?? Medications and Immunizations Administered Medications Given During Visit No medications given during this visit.?? Allergies (NKA means No Known Allergies) morphine??(combative, CONFUSED OUT OF IT) Common Emergency Awareness Tips IS IT A [...] are strongly encouraged to quit. Please call [employer] [facility] at [phone] or [phone] ([phone]) or log in to [email or web address] for referrals to smoking cessation programs. ?? The National Suicide Prevention Hotline is available 09/02 if you or someone you know needs to find a reason to keep living. By calling 2-825-837-Coolture (0867) you'll be connected to a skilled, trained counselor at a crisis center in your area. [facility] You can view and manage your care through the patient portal or by using a health care christopher of your choosing. [facility] is a website that allows you to securely view your medical information including your hospital discharge summary, office visit summaries, medications and follow-up visits. You can also request appointments, renew medications, and request access to your medical information using a health care christopher of your choosing, or just ask a question. You can enroll at [email or web address] or register during your next office visit. [facility], in keeping with [facility] guidance, no longer requires face masks for [...] medical provider or home test kit. ?? Disclaimer: The information provided is of a general nature and is intended to be used in conjunction with the recommendations and advice of your health care practitioner. Every effort has been made to ensure that the information provided is accurate and complete at the time it is provided to you however, as your needs change, or, as new information becomes available, different or additional instructions may be required. ?? If you have questions, please consult with your primary care provider or pharmacist, as appropriate. This information is not intended to serve as substitution for assessment and evaluation by a qualified health care provider. If you do not have a primary care provider, you may find a [facility] provider by calling [facility] [employer] [employer] [facility] at [phone]. Patient Care team information Care Team Personnel Name: Aurelia Yang RN Position: [facility] RN Member Role: Primary Care Nurse Name: Rhonda Escobedo NP Position: [facility] PCO Associate Professional Member Role: PCP Address: Address: [address] [place] [address], [address] [place] [address]- Name: Yue Delgado RN Position: [facility] RN Member Role: Primary Care Nurse Name: Debo Gagnon RN Position: S RN Member Role: Primary Care Nurse Name: Lisa Awad RN Position: [facility] RN Member Role: Primary Care Nurse Name: Elly Rodriges RN Position: [facility] SN RN Member Role: Primary Care Nurse Name: Nilda Pop RN Position: [facility] RN Member Role: Primary Care Nurse Care Team Related Persons Name: CHARLINE DIOP Address: [place] [address] Name: ELDER ANDERSON Address: home [address] [place] [address] Name: MAEGAN ANDERSON Address: home [address] [place] [address]
--- OUTSIDE RECORDS SUMMARY | 2024-03-09 07:29 | XMS_ITS | Continuity of Care Document ---
Author Organization [facility] Address [address] [place] [address]- Care Team Providers Care Typist Name Role Phone Fanny TOURE, Rhonda Primary Care Physician [facility] 07/27[facility]23 - 08/26/23 [facility] [address] [place] [address]- Allergies, Adverse Reactions, Alerts Substance Reaction Severity [...] Refills, Maintenance, 05/18/23 13:33:00 EDT, [facility], 25, INHALE 1 PUFF 4 TIMES A DAY NEEDED FOR COUGH, 170, cm, 05/05/23 12:54:00 EDT, Height, 50, kg, 11/15/21 11:2... Start Date: 05/18/23 Status: Ordered amLODIPine 5 mg oral tablet 1 tablet, By Mouth, Daily, # 90 tablet, 1 Refills, Maintenance, 06/09/23 9:12:00 EST, [facility], 170, cm, 06/03/23 14:00:00 EST, Height, 51, kg, 06/03/23 14:00:00 EST, Dry Weight Start Date: 06/09/23 Status: Ordered atorvastatin 20 mg oral tablet 1 tablet, By Mouth, Daily, # 90 tablet, 1 Refills, Maintenance, 07/29/23 9:02:00 EST, [facility], 170, cm, 06/23/23 10:13:00 EST, Height, 51, kg, 06/03/23 14:00:00 EST, Dry Weight Start Date: 07/29/23 Status: Ordered celecoxib 200 mg oral capsule 1 capsule = 200 mg, By Mouth, 2 times a day, # 14 capsule, 0 Refills, Maintenance, 06/04/23 13:40:00 EST, Capsule, [facility], Partial fill upon patient [...] 06/04/23 13:40:00 EST, Route to Pharmacy Electronically, [facility], Partial fill uponpatient request if the [...] Refills, Maintenance, 12/11/22 19:25:00 EDT, [facility] STORE 01967, 90, INSTILL 2 SPRAYS INTO EACH NOSTRIL 3 TIMES A DAY NEEDED FOR CONGESTION, 1... Start Date: 12/11/22 Status: Ordered metoprolol 25 mg oral tablet 12.5 mg, 0.5, tablet, By Mouth, Every 12 hours, # 30 tablet, Refills 0, Tot. Refills 0, Maintenance, 06/04/23 13:43:00 EST, Route to Pharmacy Electronically, [facility], Partial fill upon patient request if the prescription is for a sche... Start Date: 06/04/23 Stop Date: 07/04/23 Status: Ordered nicotine 14 mg/24 hr transdermal film, extended release 1 patch, Topically, Daily, # 28 patch, 0 Refills, Maintenance, 07/27/23 14:23:00 EST, [facility], 28, APPLY 1 PATCH TOPICALLY DAILY, 170, cm, 06/23/23 10:13:00 EST, Height, 51, kg, 06/03/23 14:00:00 EST, Dry Weight Start Date: 07/27/23 Status: Ordered oxyCODONE 5 mg oral tablet 10 mg, 2, tablet, By Mouth, Every 6 hours, PRN, fill on 08/18/23, # 224 tablet, Refills 0, Tot. Refills 0, Maintenance, as needed for pain, 08/18/23 9:46:00 EST, Route to Pharmacy Electronically, [facility]/pharmacy #[id number], Partial fill upon patient request if... Start Date: 08/18/23 Stop Date: 09/15/23 Status: Ordered OxyCONTIN 20 mg oral tablet, extended release 20 mg, 1, tablet, By Mouth, Every 12 hours, glass vial filler chacked fill 08/18/23, # 56 tablet, Refills 0, Tot. Refills 0, Maintenance, 08/18/23 9:46:00 EST, Route to Pharmacy Electronically, [facility]/pharmacy #[id number], Partial fill upon patient request if the prescriptio... Start Date: 08/18/23 Stop Date: 09/15/23 Status: Ordered Vasile See Instructions, # 1 [...] Confirmed Active Tobacco use disorder Confirmed Active 68340 r lung wedge resection Social History Social History Type Response Tobacco Use: 4 or less cigar ettes(less than 1/4 pack)/day in last 30 days. Other: 2-3 cig/d x 40 years; was at 0.5 pp/d. Sex Patient Care team information Care Team Personnel Name: Aurelia Yang RN Position: S RN Member Role: Primary Care Nurse Name: Rhonda Escobedo NP Position: [facility] PCO Associate Professional Member Role: PCP Address: Address: [address] [place] [address], [address] [place] [address]- Name: Yue Delgado RN Position: S RN Member Role: Primary Care Nurse Name: Debo Gagnon Position: S RN Member Role: Primary Care Nurse Name: Lisa Awad RN Position: S RN Member Role: Primary Care Nurse Name: Elly Rodriges RN Position: [facility] SN RN Member Role: Primary Care Nurse Name: Nilda Pop RN Position: S RN Member Role: Primary Care Nurse Care Team Related Persons Name: CHARLINE DIOP Address: [place] [address] Name: ELDER ANDERSON Address: home [address] [place] [address] Name: MAEGAN ANDERSON Address: home [address] [place] [address]
--- OUTSIDE RECORDS SUMMARY | 2024-03-09 07:29 | XMS_ITS | Continuity of Care Document ---
Author Organization [facility] Address [address] [place] [address]- Care Team Providers Care Lidar Analyst Name Role Phone Fanny TOURE, Rhonda Primary Care Physician [phone] [facility] 12/01[facility]23 - 12/31/23 [facility] [address] [place] [address]- Allergies, Adverse Reactions, Alerts Substance Reaction Severity [...] Refills, Maintenance, 06/09/23 9:12:00 EST, [facility], 170, cm, 06/03/23 14:00:00 EST, Height, 51, kg, 06/03/23 14:00:00 EST, Dry Weight Start Date: 06/09/23 Status: Ordered atorvastatin 20 mg oral tablet 1 tablet, By Mouth, Daily, # 90 tablet, 1 Refills, Maintenance, 07/29/23 9:02:00 EST, [facility], 170, cm, 06/23/23 10:13:00 EST, Height, 51, kg, 06/03/23 14:00:00 EST, Dry Weight Start Date: 07/29/23 Status: Ordered celecoxib 200 mg oral capsule 1 capsule = 200 mg, By Mouth, 2 times a day, # 14 capsule, 0 Refills, Maintenance, 06/04/23 13:40:00 EST, Capsule, [facility], Partial fill upon patient [...] 06/04/23 13:40:00 EST, Route to Pharmacy Electronically, [facility], Partial fill uponpatient request if the [...] Unknown, 5 Refills, Maintenance, 12/11/22 19:25:00 EDT, [facility] STORE 58946, 90, INSTILL 2 SPRAYS INTO EACH NOSTRIL 3 TIMES A DAY NEEDED FOR CONGESTION, 1... Start Date: 12/11/22 Status: Ordered lisinopril 10 mg oral tablet 1, tablet, By Mouth, Daily, # 90 tablet, Refills 1, Maintenance, 09/07/23 9:20:00 EST, Route to Pharmacy Electronically, [facility] STORE 84928, 170, cm, 07/29/23 14:04:00 EST, Height, 51, kg, 06/03/23 14:00:00 EST, Dry Weight Start Date: 09/07/23 Status: Ordered metoprolol 25 mg oral tablet 12.5 mg, 0.5, tablet, By Mouth, Every 12 hours, # 30 tablet, Refills 0, Tot. Refills 0, Maintenance, 06/04/23 13:43:00 EST, Route to Pharmacy Electronically, [facility], Partial fill upon patient request if the prescription is for a sche... Start Date: 06/04/23 Stop Date: 07/04/23 Status: Ordered nicotine 14 mg/24 hr transdermal film, extended release 1 patch, Topically, Daily, # 28 patch, 0 Refills, Maintenance, 07/27/23 14:23:00 EST, [facility] STORE 22547, 28, APPLY 1 PATCH TOPICALLY DAILY, 170, cm, 06/23/23 10:13:00 EST, Height, 51, kg, 06/03/23 14:00:00 EST, Dry Weight Start Date: 07/27/23 Status: Ordered oxyCODONE 10 mg oral tablet 1 tablet = 10 mg, By Mouth, Every 6 hours, PRN as needed for pain, cyanide case hardener assessed fill 01/05/24, # 112tablet, 0 Refills, Maintenance, 12/26/23 6:35:00 EDT, Tablet, [facility]/pharmacy #[id number], Partial fill uponpatient request if the prescription is for a schedu... Start Date: 12/26/23 Stop Date: 01/23/24 Status: Ordered OxyCONTIN 20 mg oral tablet, extended release 20 mg, 1, tablet, By Mouth, Every 12 hours, cyanide case hardener chacked fill 01/05/24, # 56 tablet, Refills 0, Tot. Refills 0, Maintenance, 12/26/23 6:35:00 EDT, Route to Pharmacy Electronically, [facility]/pharmacy #[id number], Partial fill upon patient request [...] Confirmed Active Tobacco use disorder Confirmed Active 73434 r lung wedge resection Social History Social History Type Response Smoking Status Former smoker, quit more than 30 days ago; Total pack years: 45; entered on: 09/17/23 Sex Patient Care team information Care Team Personnel Name: Aurelia Yang RN Position: [facility] RN Member Role: Primary Care Nurse Name: Rhonda Escobedo NP Position: [facility] PCO Associate Professional Member Role: PCP Address: Address: [address] [place] [address], [address] [place], [place] [address] Name: Yue Delgado RN Position: [facility] RN Member [...] Persons Name: CHARLINE DIOP Address: [place] [address] Name: ELDER ANDERSON Address: home [address] [place] [address] Name: MAEGAN ANDERSON Address: home [address] [place] [address]
--- OUTSIDE RECORDS SUMMARY | 2024-03-09 07:29 | XMS_ITS | Continuity of Care Document ---
Author Organization [facility] Adult Address [address] [place] [address]- Care Team Providers Care Cascara Bark Cutter Name Role Phone Fanny TOURE, Rhonda Primary Care Physician [phone] Encounter [facility] Date(s): 08/12/22 - 09/11/22 [facility] Adult [address] [place] [address]- Allergies, Adverse Reactions, Alerts Substance Reaction Severity [...] 8.5 each, 5 Refills, Maintenance,06/04/22 13:05:00 EST, [facility] STORE 80827, 30, TAKE 2 PUFFS BY MOUTH EVERY 4 HOURS NEEDED FOR WHEEZING, 170, cm, 04/10/22 14:30:00 EDT, Height, 50, kg,... Start Date: 06/04/22 Status: Ordered amLODIPine 5 mg oral tablet 1 tablet, By Mouth, Daily, # 90 tablet, 1 Refills, Maintenance, 06/23/22 9:11:00 EST, [facility] STORE 25060, 170, cm, 04/10/22 14:30:00 EDT, Height, 50, [...] tablet, 1 Refills, Maintenance, 08/05/22 7:46:00 EST, [facility] STORE 27451, 170, cm, 08/05/22 7:32:00 EST, Height, 50, kg, 11/15/21 11:23:00 EDT, Dry Weight Start Date: 08/05/22 Status: Ordered atorvastatin 20 mg oral tablet 1 tablet = 20 mg, By Mouth, Daily, # 30 tablet, 5 Refills, Maintenance, 11/17/21 19:20:00 EDT, Tablet, [facility]/pharmacy #1234, Partial fill upon patient request if the prescription is for a schedule II opioid drug., 170, cm, 11/15/21 11:23:00 EDT, Height,... Start Date: 11/17/21 Status: Ordered atorvastatin 20 mg oral tablet 1 tablet = 20 mg, By Mouth, Daily, for 90 days, # 90 tablet, 1 Refills, Physician Stop 12/15/22 11:17:00 EDT, 06/18/22 11:17:00 EST, [facility]/pharmacy #1234, 170, cm, 04/10/22 14:30:00 EDT, Height, [...] 2 Refills, Maintenance, 09/24/21 11:18:00 EST, Cream, [facility]/pharmacy #1234, Partial fill upon patient request if the prescription is for a schedule II opioid drug., 1 application Topically 3 times a day,... Start Date: 09/24/21 Status: Ordered hydrocortisone topical 25 mg suppository 1 supp = 25 mg, Rectally, 2 times a day, # 28 supp, 0 Refills, Maintenance, 10/02/21 13:05:00 EDT, Suppository, [facility]/pharmacy #1234, Partial fill upon patient request if the prescription is for a schedule II opioid drug., 170, cm, 10/02/21 10:36:00 EDT... Start Date: 10/02/21 Stop Date: 10/16/21 Status: Ordered ipratropium nasal 21 mcg/inh spray See Instructions, INSTILL 2 SPRAYS INTO EACH NOSTRIL 3 TIMES A DAY NEEDED FOR CONGESTION, # 90 Unknown, 1 Refills, Maintenance, 07/23/22 14:20:00 EST, [facility] STORE 59518, 90, INSTILL 2 SPRAYS INTO EACH NOSTRIL 3 TIMES A DAY NEEDED FOR CONGESTION, 1... Start Date: 07/23/22 Status: Ordered lisinopril 10 mg oral tablet 1, tablet, By Mouth, Daily, # 90 tablet, Refills 1, Maintenance, 08/25/22 11:40:00 EST, Route to Pharmacy Electronically, [facility] STORE 61742, 170, cm, 08/05/22 8:05:00 EST, Height, 50, kg, 11/15/21 11:23:00 EDT, Dry Weight Start Date: 08/25/22 Status: Ordered Nicotrol Inhaler 10 mg inhalation device See Instructions, USE 6 CARTRIDGES PER DAY, # 168 Unknown, 0 Refills, Maintenance, 02/03/22 9:21:00EDT, [facility]/pharmacy #1234, 28, USE 6 CARTRIDGES PER DAY, 170, cm, 12/31/21 8:21:00 EDT, Height, 50, kg, 11/15/21 11:23:00 EDT, Dry Weight Start Date: 02/03/22 Status: Ordered oxyCODONE 10 mg oral tablet 1 tablet = 10 mg, By Mouth, Every 6 hours, PRN as needed for severe pain, # 112 tablet, 0 Refills, Maintenance, 08/21/22 9:34:00 EST, Tablet, [facility]/pharmacy #1234, Partial fill upon patient request if the prescription is for a schedule II opioid drug. M... Start Date: 08/21/22 Stop Date: 09/18/22 Status: Ordered OxyCONTIN 10 mg oral tablet, extended release 10 mg, 1, tablet, By Mouth, Every 12 hours, # 56 tablet, Refills 0, Tot. Refills 0, Maintenance, 08/21/22 9:34:00 EST, Route to Pharmacy Electronically, [facility]/pharmacy #1234, in addition to his IR oxycodone, [...] Team Personnel Name: Rhonda Escobedo NP Position: [facility] PCO Associate Professional Member Role: PCP Address: Address: [address] [place] [address], [address] [place] [address]- Name: Lisa Awad RN Position: [facility] RN Member Role: Primary Care Nurse Name: Elly Rodriges RN Position: [facility] RN Member Role: Primary Care Nurse Care Team Related Persons Name: CHARLINE DIOP Address: [place] [address] Name: ELDER ANDERSON Address: home [address] [place] [address] Name: MAEGAN ANDERSON Address: home [address] [place] [address]
--- OUTSIDE RECORDS SUMMARY | 2024-03-09 07:29 | XMS_ITS | Continuity of Care Document ---
Author Organization [facility] Adult Address [address] [place] [address]- Care Team Providers Care Medical Assembly Name Role Phone Fanny TOURE, Rhonda Primary Care Physician [facility]counter [facility] Date(s): 07/03/23 - 08/06/23 [facility] Adult [address] [place] [address]- Attending Physician: Saravanan Velazquez MD Allergies, Adverse Reactions, Alerts Substance Reaction [...] Refills, Maintenance, 05/18/23 13:33:00 EDT, [facility], 25, INHALE 1 PUFF 4 TIMES A DAY NEEDED FOR COUGH, 170, cm, 05/05/23 12:54:00 EDT, Height, 50, kg, 11/15/21 11:2... Start Date: 05/18/23 Status: Ordered amLODIPine 5 mg oral tablet 1 tablet, By Mouth, Daily, # 90 tablet, 1 Refills, Maintenance, 06/09/23 9:12:00 EST, [facility], 170, cm, 06/03/23 14:00:00 EST, Height, 51, kg, 06/03/23 14:00:00 EST, Dry Weight Start Date: 06/09/23 Status: Ordered atorvastatin 20 mg oral tablet 1 tablet, By Mouth, Daily, # 90 tablet, 1 Refills, Maintenance, 07/29/23 9:02:00 EST, [facility], 170, cm, 06/23/23 10:13:00 EST, Height, 51, kg, 06/03/23 14:00:00 EST, Dry Weight Start Date: 07/29/23 Status: Ordered celecoxib 200 mg oral capsule 1 capsule = 200 mg, By Mouth, 2 times a day, # 14 capsule, 0 Refills, Maintenance, 06/04/23 13:40:00 EST, Capsule, [facility], Partial fill upon patient request [...] 06/04/23 13:40:00 EST, [facility]ically[facility], Partial fill uponpatient request if [...] Unknown, 5 Refills, Maintenance, 12/11/22 19:25:00 EDT, [facility] STORE 51956, 90, INSTILL 2 SPRAYS INTO EACH NOSTRIL 3 TIMES A DAY NEEDED FOR CONGESTION, 1... Start Date: 12/11/22 Status: Ordered metoprolol 25 mg oral tablet 12.5 mg, 0.5, tablet, By Mouth, Every 12 hours, # 30 tablet, Refills 0, Tot. Refills 0, Maintenance, 06/04/23 13:43:00 EST, Route to Pharmacy Electronically, [facility], Partial fill upon patient request if the prescription is for a sche... Start Date: 06/04/23 Stop Date: 07/04/23 Status: Ordered nicotine 14 mg/24 hr transdermal film, extended release 1 patch, Topically, Daily, # 28 patch, 0 Refills, Maintenance, 07/27/23 14:23:00 EST, [facility], 28, APPLY 1 PATCH TOPICALLY DAILY, 170, cm, 06/23/23 10:13:00 EST, Height, 51, kg, 06/03/23 14:00:00 EST, Dry Weight Start Date: 07/27/23 Status: Ordered oxyCODONE 5 mg oral tablet 10 mg, 2, tablet, By Mouth, Every 6 hours, PRN, fill on 07/21/22, # 224 tablet, Refills 0, Tot. Refills 0, Maintenance, as needed for pain, 07/18/23 10:23:00 EST, Route to Pharmacy Electronically, [facility]/pharmacy #[id number], Partial fill upon patient request if... Start Date: 07/18/23 Stop Date: 08/15/23 Status: Ordered OxyCONTIN 20 mg oral tablet, extended release 20 mg, 1, tablet, By Mouth, Every 12 hours, sports medicine coordinator chacked fill 07/21/23, # 56 tablet, Refills 0, Tot. Refills 0, Maintenance, 07/18/23 10:23:00 EST, Route to Pharmacy Electronically, [facility]/pharmacy #[id number], Partial fill upon patient request if the prescriptio... Start Date: 07/18/23 Stop Date: 08/15/23 Status: Ordered Thaddeus See Instructions, # 1 each, Maintenance, DX: M54.9, M25.569, M25.559 Ulises burnette, 06/24/23 12:55:00 EST, Supply Start Date: 06/24/23 [...] Confirmed Active Tobacco use disorder Confirmed Active 86877 r lung wedge resection Social History Social History Type Response Tobacco Use: 4 or less cigar ettes(less than 1/4 pack)/day in last 30 days. Other: 2-3 cig/d x 40 years; was at 0.5 pp/d. Sex Patient Care team information Care Team Personnel Name: Aurelia Yang RN Position: S RN Member Role: Primary Care Nurse Name: Rhonda Escobedo NP Position: [facility] PCO Associate Professional Member Role: PCP Address: Address: [address] [place] [address], [address] [place], [place] [address] Name: Yue Delgado RN Position: [facility] RN Member Role: Primary Care Nurse Name: Debo Gagnon Position: S RN Member Role: Primary Care Nurse Name: Lisa Awad RN Position: S RN Member Role: Primary Care Nurse Name: Elly Rodriges RN Position: [facility] SN RN Member Role: Primary Care Nurse Name: Nilda Pop RN Position: S RN Member Role: Primary Care Nurse Care Team Related Persons Name: REVA DIOPFER Address: [place] [address] Name: ELDER ANDERSON Address: home [address] [place] [address] Name: MAEGAN ANDERSON Address: home [address] [place] [address]
--- OUTSIDE RECORDS SUMMARY | 2024-03-09 07:29 | XMS_ITS | Continuity of Care Document ---
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 Start Date: 06/04/22 Status: Ordered amLODIPine 5 mg oral tablet 1 tablet, By Mouth, Daily, # 90 tablet, 1 Refills, Maintenance, 06/23/22 9:11:00 EST, [facility] STORE 24839, 170, cm, 04/10/22 14:30:00 EDT, Height, 50, [...] tablet, 1 Refills, Maintenance, 08/05/22 7:46:00 EST, [facility] STORE 64993, 170, cm, 08/05/22 7:32:00 EST, Height, 50, kg, 11/15/21 11:23:00 EDT, Dry Weight Start Date: 08/05/22 Status: Ordered atorvastatin 20 mg oral tablet 1 tablet = 20 mg, By Mouth, Daily, # 30 tablet, 5 Refills, Maintenance, 11/17/21 19:20:00 EDT, Tablet, [facility]/pharmacy #1234, Partial fill upon patient request if the prescription is for a schedule II opioid drug., 170, cm, 11/15/21 11:23:00 EDT, Height,... Start Date: 11/17/21 Status: Ordered atorvastatin 20 mg oral tablet 1 tablet = 20 mg, By Mouth, Daily, for 90 days, # 90 tablet, 1 Refills, Physician Stop 12/15/22 11:17:00 EDT, 06/18/22 11:17:00 EST, [facility]/pharmacy #1234, 170, cm, 04/10/22 14:30:00 EDT, Height, [...] 2 Refills, Maintenance, 09/24/21 11:18:00 EST, [facility] Partial fill upon patient request if the prescription is for a schedule II opioid drug., 1 application Topically 3 times a day,... Start Date: 09/24/21 Status: Ordered hydrocortisone topical 25 mg suppository 1 supp = 25 mg, Rectally, 2 times a day, # 28 supp, 0 Refills, Maintenance, 10/02/21 13:05:00 EDT, Suppository, [facility]/pharmacy #1234, Partial fill upon patient request if the prescription is for a schedule II opioid drug., 170, cm, 10/02/21 10:36:00 EDT... Start Date: 10/02/21 Stop Date: 10/16/21 Status: Ordered ipratropium nasal 21 mcg/inh spray See Instructions, INSTILL 2 SPRAYS INTO EACH NOSTRIL 3 TIMES A DAY NEEDED FOR CONGESTION, # 90 Unknown, 1 Refills, Maintenance, 07/23/22 14:20:00 EST, [facility] STORE 94270, 90, INSTILL 2 SPRAYS INTO EACH NOSTRIL 3 TIMES A DAY NEEDED FOR CONGESTION, 1... Start Date: 07/23/22 Status: Ordered lisinopril 10 mg oral tablet 1, tablet, By Mouth, Daily, # 90 tablet, Refills 1, Tot. Refills 1, Maintenance, 02/16/22 16:25:00 EDT, Route to Pharmacy Electronically, [facility]/pharmacy #1234, 170, cm, 12/31/21 8:21:00 EDT, Height, 50, kg, 11/15/21 11:23:00 EDT, Dry Weight Start Date: 02/16/22 Status: Ordered Nicotrol Inhaler 10 mg inhalation device See Instructions, USE 6 CARTRIDGES PER DAY, # 168 Unknown, 0 Refills, Maintenance, 02/03/22 9:21:00EDT, [facility]/pharmacy #1234, 28, USE 6 CARTRIDGES PER DAY, 170, cm, 12/31/21 8:21:00 EDT, Height, 50, kg, 11/15/21 11:23:00 EDT, Dry Weight Start Date: 02/03/22 Status: Ordered oxyCODONE 10 mg oral tablet 1 tablet = 10 mg, By Mouth, Every 6 hours, PRN as needed for severe pain, fill on 07/24/22, # 112 tablet, 0 Refills, Maintenance, 07/23/22 20:14:00 EST, Tablet, [facility]/pharmacy #1234, Partial fill upon patient request if the prescription is for a schedule... Start Date: 07/23/22 Stop Date: 08/20/22 Status: Ordered OxyCONTIN 10 mg oral tablet, extended release 10 mg, 1, tablet, By Mouth, Every 12 hours, fill on 07/24/22, # 56 tablet, Refills 0, Tot. Refills 0,Maintenance, 07/23/22 20:14:00 EST, Route to Pharmacy Electronically, [facility]/pharmacy #1234, in addition to his IR oxycodone, 170, cm, 04/10/22 14:30:00 E... Start Date: 07/23/22 Stop Date: 08/20/22 Status: Ordered Problem List Condition Confirmation Course [...] Confirmed Active Tobacco use disorder Confirmed Active Diagnosis Diagnosis Type Effective Dates Health Status Clinical Service Informant Lumbar disc herniation with radiculopathy Discharge Diagnosis 08/05/22 Opioid use disorder, severe, in sustained remission Discharge Diagnosis 08/05/22 Tobacco use disorder Discharge Diagnosis 08/05/22 watermaster prescription opiate use Discharge Diagnosis 08/05/22 Vital Signs Most recent to oldest [Reference Range]: 1 2 Height 170 cm (08/05/22 8:05 AM) 170 cm (08/05/22 7:32 AM) Pulse Rate [55-90 bpm] 57 bpm (08/05/22 8:05 AM) Blood Pressure [90-138/55-84 mm Hg] 131/ 65mm Hg (08/05/22 8:05 AM) Blood pressure sites Arm, left (08/05/22 8:05 AM) Social History Social History Type Response Tobacco Other: Smokes about 12 cigarettes daily. Prior to this, smoking about 1 PPD for 35 years.. Sex Patient Care team information Care Team Personnel Name: Rhonda Escobedo NP Position: [facility] PCO Associate Professional Member Role: PCP Address: Address: [address] [place] [address], [address] [place] [address]- Name: Lisa Awad RN Position: S RN Member Role: Primary Care Nurse Name: Elly Rodriges RN Position: [facility] SN RN Member Role: Primary Care Nurse Care Team Related Persons Name: CHARLINE DIOP Address: [place] [address] Name: ELDER ANDERSON Address: home [address] [place] [address] Name: MAEGAN ANDERSON Address: home [address] [place] [address]
--- OUTSIDE RECORDS SUMMARY | 2024-03-09 07:29 | XMS_ITS | Continuity of Care Document ---
Author Organization [facility] Adult Address [address] [place] [address]- Care Team Providers Care Needle Valve Operator Name Role Phone Rhonda Escobedo NP Primary Care Physician Encounter [facility] Date(s): 09/17/23 - 09/24/23 [facility] Adult [address] [place] [address]- Encounter Diagnosis Adenocarcinoma of lung(Discharge Diagnosis) - 09/17/23 COPD (chronic obstructive pulmonary disease)(Discharge Diagnosis) - 09/17/23 Chronic back pain(Discharge Diagnosis) - 09/17/23 Tobacco use disorder(Discharge Diagnosis) - 09/17/23 Attending Physician: Rhonda Escobedo NP Allergies, Adverse Reactions, Alerts Substance Reaction Severity Status morphine 1 combative CONFUSED OUT OF IT Active 1hallucintations, confusion Immunizations Given and Recorded Vaccine Date Status Refusal Reason influenza virus vaccine, inactivated 04/02/23 Epdro rded influenza virus vaccine, inactivated 03/19/22 Pedro [...] Refills, Maintenance, 06/09/23 9:12:00 EST, [facility], 170, cm, 06/03/23 14:00:00 EST, Height, 51, kg, 06/03/23 14:00:00 EST, Dry Weight Start Date: 06/09/23 Status: Ordered atorvastatin 20 mg oral tablet 1 tablet, By Mouth, Daily, # 90 tablet, 1 Refills, Maintenance, 07/29/23 9:02:00 EST, [facility], 170, cm, 06/23/23 10:13:00 EST, Height, 51, kg, 06/03/23 14:00:00 EST, Dry Weight Start Date: 07/29/23 Status: Ordered celecoxib 200 mg oral capsule 1 capsule = 200 mg, By Mouth, 2 times a day, # 14 capsule, 0 Refills, Maintenance, 06/04/23 13:40:00 EST, Capsule, [facility], Partial fill upon patient [...] 06/04/23 13:40:00 EST, Route to Pharmacy Electronically, [facility], Partial fill uponpatient request [...] 19:25:00 EDT, [facility] STORE 77976, 90, INSTILL 2 SPRAYS INTO EACH NOSTRIL 3 TIMES A DAY NEEDED FOR CONGESTION, 1... Start Date: 12/11/22 Status: Ordered lisinopril 10 mg oral tablet 1, tablet, By Mouth, Daily, # 90 tablet, Refills 1, Maintenance, 09/07/23 9:20:00 EST, Route to Pharmacy Electronically, [facility] STORE 08923, 170, cm, 07/29/23 14:04:00 EST, Height, 51, kg, 06/03/23 14:00:00 EST, Dry Weight Start Date: 09/07/23 Status: Ordered metoprolol 25 mg oral tablet 12.5 mg, 0.5, tablet, By Mouth, Every 12 hours, # 30 tablet, Refills 0, Tot. Refills 0, Maintenance, 06/04/23 13:43:00 EST, Route to Pharmacy Electronically, [facility], Partial fill upon patient request if the prescription is for a sche... Start Date: 06/04/23 Stop Date: 07/04/23 Status: Ordered nicotine 14 mg/24 hr transdermal film, extended release 1 patch, Topically, Daily, # 28 patch, 0 Refills, Maintenance, 07/27/23 14:23:00 EST, [facility] STORE 65706, 28, APPLY 1 PATCH TOPICALLY DAILY, 170, cm, 06/23/23 10:13:00 EST, Height, 51, kg, 06/03/23 14:00:00 EST, Dry Weight Start Date: 07/27/23 Status: Ordered oxyCODONE 10 mg oral tablet 1 tablet = 10 mg, By Mouth, Every 6 hours, PRN as needed for pain, die designer apprentice assessed fill 09/15, # 112 tablet, 0 Refills, Maintenance, 09/14/23 20:05:00 EST, Tablet, [facility] #[id number], Partial fill upon patient request if the prescription is for a schedule... Start Date: 09/14/23 Stop Date: 10/12/23 Status: Ordered OxyCONTIN 20 mg oral tablet, extended release 20 mg, 1, tablet, By Mouth, Every 12 hours, die designer apprentice chacked fill 09/15/23, # 56 tablet, Refills 0, Tot. Refills 0, Maintenance, 09/14/23 20:07:00 EST, Route to Pharmacy Electronically, [facility],Partial fill upon patient request if the prescripti... Start Date: 09/14/23 Stop Date: 10/12/23 Status: Ordered Walker See Instructions, # 1 each, Maintenance, DX: M54.9, M25.569, M25.559 Rollator walker, 06/24/23 12:55:00 EST, Supply Start Date: 06/24/23 [...] Confirmed Active Tobacco use disorder Confirmed Active 11217 r lung wedge resection Diagnosis Diagnosis Type Effective Dates Health Status Clinical Service Informant Adenocarcinoma of lung Discharge Diagnosis 09/17/23 COPD (chronic obstructive pulmonary disease) Discharge Diagnosis 09/17/23 Chronic back pain Discharge Diagnosis 09/17/23 Tobacco use disorder Discharge Diagnosis 09/17/23 Vital Signs Most recent to oldest [Reference Range]: 1 Height 170 cm (09/17/23 8:42 AM) Weight 58.18 kg (09/17/23 8:42 AM) Body Mass Index [18.5-24.99 kg/m2] 20.13 kg/m2 (09/17/23 8:42 AM) Weight Obtained Via Patient/family state d (09/17/23 8:42 AM) Social History Social History Type Response Smoking Status Former smoker, quit more than 30 days ago; Total pack years: 45; entered on: 09/17/23 Sex Patient Care team information Care Team Personnel Name: Aurelia Yang RN Position: [facility] RN Member Role: Primary Care Nurse Name: Rhonda Escobedo NP Position: [facility] PCO Associate Professional Member Role: PCP Address: Address: [address] [place] [address], [address] [place], [place] [address] Name: Yue Delgado RN Position: S RN Member Role: Primary Care Nurse Name: Debo Gagnon Position: S RN Member Role: Primary Care Nurse Name: Lisa Awad RN Position: S RN Member Role: Primary Care Nurse Name: Elly Rodriges RN Position: [facility] RN Member Role: Primary Care Nurse Name: Donn YOUNG, Nilda Gary Position: [facility] RN Member Role: Primary Care Nurse Care Team Related Persons Name: CHARLINE DIOP Address: [place] [address] Name: ELDER ANDERSON Address: home [address] [place] [address] Name: MAEGAN ANDERSON Address: home [address] [place] [address]
--- OUTSIDE RECORDS SUMMARY | 2024-03-09 07:29 | XMS_ITS | Continuity of Care Document ---
Author Organization [facility] Adult Address [address] [place] [address]- Care Team Providers Care Referral Management Liaison Name Role Phone Rhonda Escobedo NP Primary Care Physician [facility] Date[facility]): 05/[facility]/23 - 06/03/23 [facility] Adult [address] [place] [address]- Attending Physician: AdmSam enriquez Admitting Physician: Admtr, Sam Referring Physician: Admtr, [id number] Allergies, Adverse Reactions, [...] Refills, Maintenance, 05/18/23 13:33:00 EDT, [id number], 25, INHALE 1 PUFF 4 TIMES A DAY NEEDED FOR COUGH, 170, cm, 05/05/23 12:54:00 EDT, Height, 50, kg, 11/15/21 11:2... Start Date: 05/18/23 Status: Ordered amLODIPine 5 mg oral tablet 1 tablet, By Mouth, Daily, # 90 tablet, 1 Refills, Maintenance, 12/04/22 8:21:00 EDT, [facility]/pharmacy #1972, 170, cm, 08/05/22 8:05:00 EST, Height, 50, kg, 11/15/21 11:23:00 EDT, Dry Weight Start Date: 12/04/22 Status: Ordered cholecalciferol 50,000 intl units oral capsule 1 capsule = 50,000 International_Units, By Mouth, Every 7 days, # 13 capsule, 3 Refills, Maintenance, 02/08/23 9:24:00 EDT, Capsule, [facility]/pharmacy #1972, Partial fill upon patient [...] Refills, Maintenance, 12/11/22 19:25:00 EDT, [facility], 90, INSTILL 2 SPRAYS INTO EACH NOSTRIL 3 TIMES A DAY NEEDED FOR CONGESTION, 1... Start Date: 12/11/22 Status: Ordered lisinopril 10 mg oral tablet 1, tablet, By Mouth, Daily, # 90 tablet, Refills 1, Maintenance, 05/01/23 7:04:00 EDT, Route to Pharmacy Electronically, [id number], 170, cm, 02/06/23 9:02:00 EDT, Height, 50, [...] tablet, By Mouth, Every 6 hours, PRN, ENVIRONMENTAL CONFLICT MANAGER checked. Fill 05/26 2023, # 224 tablet, Refills 0, Tot. Refills 0, Maintenance, as needed for pain, 05/24/23 8:15:00 EST, Route to Pharmacy Electronically, [facility]/pharmacy #1972, Partial fill upon patien... Start Date: 05/24/23 Stop Date: 06/21/23 Status: Ordered OxyCONTIN 20 mg oral tablet, extended release 20 mg, 1, tablet, By Mouth, Every 12 hours, roofing apprentice chacked fill 05/26/2023, # 56 tablet, Refills 0, Tot. Refills 0, Maintenance, 05/24/23 8:17:00 EST, Route to Pharmacy Electronically, [facility]/pharmacy #1972, Partial fill upon patient [...] use disorder Confirmed Active Underweight Confirmed Active Procedures Procedure Date Related Diagnosis Body Site Status Arthroscopy of knee with med ial and lateral meniscectomy [address] james Social History Social History Type Response Tobacco Use: 4 or less cigar ettes(less than 1/4 pack)/day in last 30 days. Other: 2-3 cig/d x 40 years; was at 0.5 pp/d. Sex EKG study * Event Display: EKG Authored Date: Radiology * Event Display: MRI Knee, Non- BH Authored Date: Patient Care team information Care Team Personnel Name: Aurelia Yang RN Position: [facility] RN Member Role: Primary Care Nurse Name: Rhonda Escobedo NP Position: [facility] PCO Associate Professional Member Role: PCP Address: Address: [address] [place] [address], [address] [place] [address]- Name: Yue Delgado RN Position: S RN Member Role: Primary Care Nurse Name: Debo Gagnon Position: S RN Member Role: Primary Care Nurse Name: Lisa Awad RN Position: S RN Member Role: Primary Care Nurse Name: Elly Rodriges RN Position: [facility] RN Member Role: Primary Care Nurse Name: Nilda Pop RN Position: S RN Member Role: Primary Care Nurse Care Team Related Persons Name: CHARLINE DIOP Address: [place] [address] Name: ELDER ANDERSON Address: home [address] [address] Name: MAEGAN ANDERSON Address: home [address] [place] [address] [address] [place] [address]
--- OUTSIDE RECORDS SUMMARY | 2024-03-09 07:29 | XMS_ITS | Continuity of Care Document ---
Author Organization [facility] Adult Address [address] [place] [address]- Care Team Providers Care Spar Cap Beveler Name Role Phone Tonja TOURE, Jeannette Olivera Primary Care Physicia n [facility] Date[facility]s): 06/18/21 - 07/18/21 [facility] Adult [address] [place] [address]- Allergies, Adverse Reactions, Alerts Substance Reaction Severity [...] 1 Refills, Maintenance, 06/27/21 14:24:00 EST, Cream, [facility]/pharmacy #1234, Partial fill upon patient request if the prescription is for a schedule II opioid drug., 1 application Rectally 2 times a day, 1... Start Date: 06/27/21 Status: Ordered Anusol-HC 2.5% cream with applicator 1 application, Rectally, 2 times a day, # 30 Gm, 1 Refills, Maintenance, 06/27/21 14:24:00 EST, Cream, [facility]/pharmacy #1234, Partial fill upon patient request if the prescription is for a schedule II opioid drug., 1 application Rectally 2 times a day, 1... Start Date: 06/27/21 Status: Ordered atorvastatin 20 mg oral tablet 1 tablet = 20 mg, By Mouth, Daily, # 30 tablet, 5 Refills, Maintenance, 06/19/21 8:09:00 EST, Tablet, [facility]/pharmacy #1234, Partial fill upon patient [...] 5 Refills, Maintenance, 07/03/21 10:04:00 EST, Tablet, [facility]/pharmacy #1234, Partial fill upon patient [...]
--- OUTSIDE RECORDS SUMMARY | 2024-03-09 07:29 | XMS_ITS | Continuity of Care Document ---
Author Organization [facility] Adult Address [address] [place] [address]- Care Team Providers Care Training Specialist Name Role Phone Fanny TOURE, Rhonda Primary Care Physician [facility] Date[facility]s): 12/31/21 - 01/07/22 [facility] Adult [address] [place] [address]- Attending Physician: Rhonda Escobedo NP Allergies, Adverse [...] pneumococcal 23-valent vaccine 08/14/09 Given tetanus/diphtheria/pertussis, acel(Tdap) 12/16/08 Recorded Medications Albuterol (Eqv-ProAir HFA) 90 mcg/inh inhalation aerosol 2 puffs, Inhalation, Every 4 hours, PRN NEEDED FOR WHEEZING, # 8.5 each, 5 Refills, [facility], 17, INHALE 2 PUFFS EVERY 4 HOURS NEEDED FOR WHEEZING, 170, cm, 11/15/21 11:23:00 EDT, Height, 50, kg, 11/15/21 11:23:00 EDT, Dry Weight Start Date: 11/17/21 Status: Ordered amLODIPine 5 mg oral tablet 1 tablet, By Mouth, Daily, # 90 tablet, 0 Refills, [facility], 170, cm, 11/15/21 11:23:00 EDT,Height, 50, kg, [...] EVERY DAY, # 90 tablet, 1 Refills, [facility], 170, cm, 12/17/21 8:41:00 EDT, Height, 50, [...] 2 Refills, Maintenance, 09/24/21 11:18:00 EST, Cream, [facility]/pharmacy #1234, Partial fill upon patient request if the prescription is for a schedule II opioid drug., 1 application Topically 3 times a day,... Start Date: 09/24/21 Status: Ordered hydrocortisone topical 25 mg suppository 1 supp = 25 mg, Rectally, 2 times a day, # 28 supp, 0 Refills, Maintenance, 10/02/21 13:05:00 EDT, Suppository, [facility]/pharmacy #1234, Partial fill upon patient request if the prescription is for a schedule II opioid drug., 170, cm, 10/02/21 10:36:00 EDT... Start Date: 10/02/21 Stop Date: 10/16/21 Status: Ordered ipratropium nasal 21 mcg/inh spray 2 sprays, Nares, Both, 3 times a day, PRN as needed for congestion, # 1 each, 0 Refills, Acute 01/19/22 17:07:00 EDT, 12/20/21 17:07:00 EDT, [facility]/pharmacy #1234, Partial fill upon patient request if the prescription is for a schedule II opioid drug., 2... Start Date: 12/20/21 Stop Date: 01/19/22 Status: Ordered lisinopril 10 mg oral tablet 1, tablet, By Mouth, Daily, # 30 tablet, Refills 1, Route to Pharmacy Electronically, [facility] STORE 23308, 170, cm, 12/05/21 10:11:00 EDT, Height, 50, kg, 11/15/21 11:23:00 EDT, Dry Weight Start Date: 12/13/21 Status: Ordered lisinopril 40 mg oral tablet See Instructions, TAKE 1 TABLET BY MOUTH EVERY DAY, # 90 tablet, 1 Refills, [facility] ST[facility] 96772, 170, cm, 12/17/21 8:41:00 EDT, Height, 50, kg, 11/15/21 11:23:00 EDT, Dry Weight Start Date: 12/17/21 Status: Ordered Nicotrol Inhaler 10 mg inhalation device See Instructions, use 6 cartridges per day, # 84 capsule, 0 Refills, Maintenance, 04/15/21 10:30:00EDT, [facility]/pharmacy #1234, Partial fill upon patient request if the prescription is for a schedule IIopioid drug., use 6 cartridges per day, 170, cm, 09... Start Date: 04/15/21 Status: Ordered oxyCODONE 10 mg oral tablet 1 tablet = 10 mg, By Mouth, Every 6 hours, PRN as needed for severe pain, # 120 tablet, 0 Refills, Maintenance, 12/17/21 10:05:00 EDT, Tablet, [facility]/pharmacy #1234, Partial fill upon patient request ifthe prescription is for a schedule II opioid drug.... Start Date: 12/17/21 Stop Date: 01/16/22 Status: Ordered OxyCONTIN 10 mg oral tablet, extended release 10 mg, 1, tablet, By Mouth, Every 12 hours, # 56 tablet, Refills 0, Tot. Refills 0, Maintenance, 12/13/21 10:46:00 EDT, Route to Pharmacy Electronically, [facility]/pharmacy #1234, in addition to his IR oxycodone, [...] oldest [Reference Range]: 1 Height 170 cm (12/31/21 8:21 AM) Weight 57.72 kg (12/31/21 8:21 AM) Body Mass Index [18.5-24.99] 19.97 (12/31/21 8:21 AM) Weight Obtained Via Patient/family state d (12/31/21 8:21 AM) Social History Social History Type Response Tobacco Other: Smokes about 12 cigarettes daily. Prior to this, smoking about 1 PPD for 35 years.. Sex
--- OUTSIDE RECORDS SUMMARY | 2024-03-09 07:29 | XMS_ITS | Continuity of Care Document ---
Author Organization [facility] Adult Address [address] [place] [address]- Care Team Providers Care Tetryl Nitrator Operator Name Role Phone Fanny TOURE, Rhonda Primary Care Physician [phone] [facility]s): 01/28/24 - 03/04/24 [facility] Adult [address] [place] [address]- Attending Physician: Not on Staff, Attending MD [...] Refills, Maintenance, 01/28/24 14:32:00 EDT, [facility], 170, cm, 01/08/24 10:04:00 EDT, Height, 51, kg, 06/03/23 14:00:00 EST, Dry Weight Start Date: 01/28/24 Status: Ordered atorvastatin 20 mg oral tablet 1 tablet, By Mouth, Daily, # 90 tablet, 1 Refills, Maintenance, 07/29/23 9:02:00 EST, [facility], 170, cm, 06/23/23 10:13:00 EST, Height, 51, kg, 06/03/23 14:00:00 EST, Dry Weight Start Date: 07/29/23 Status: Ordered celecoxib 200 mg oral capsule 1 capsule = 200 mg, By Mouth, 2 times a day, # 14 capsule, 0 Refills, Maintenance, 06/04/23 13:40:00 EST, Capsule, [facility], Partial fill upon patient request [...] Unknown, 5 Refills, Maintenance, 12/11/22 19:25:00 EDT, [facility], 90, INSTILL 2 SPRAYS INTO EACH NOSTRIL 3 TIMES A DAY NEEDED FOR CONGESTION, 1... Start Date: 12/11/22 Status: Ordered lisinopril 10 mg oral tablet 1, tablet, By Mouth, Daily, # 90 tablet, Refills 1, Maintenance, 09/07/23 9:20:00 EST, Route to Pharmacy Electronically, [facility] 07849, 170, cm, 07/29/23 14:04:00 EST, Height, 51, kg, 06/03/23 14:00:00 EST, Dry Weight Start Date: 09/07/23 Status: Ordered metoprolol 25 mg oral tablet 12.5 mg, 0.5, tablet, By Mouth, Every 12 hours, # 30 tablet, Refills 0, Tot. Refills 0, Maintenance, 06/04/23 13:43:00 EST, Route to Pharmacy Electronically, [facility], Partial fill upon patient request if the prescription is for a sche... Start Date: 06/04/23 Stop Date: 07/04/23 Status: Ordered nicotine 14 mg/24 hr transdermal film, extended release 1 patch, Topically, Daily, # 28 patch, 0 Refills, Maintenance, 07/27/23 14:23:00 EST, [facility], 28, APPLY 1 PATCH TOPICALLY DAILY, 170, cm, 06/23/23 10:13:00 EST, Height, 51, kg, 06/03/23 14:00:00 EST, Dry Weight Start Date: 07/27/23 Status: Ordered oxyCODONE 10 mg oral tablet 1 tablet = 10 mg, By Mouth, Every 6 hours, PRN as needed for pain, chisel mortiser operator assessed fill 03/06/24, # 28 tablet, 0 Refills, Maintenance, 03/04/24 12:02:00 EDT, Tablet, [facility]/pharmacy #1972, Partial fill uponpatient request if the prescription is for a schedu... Start Date: 03/04/24 Stop Date: 03/11/24 Status: Ordered OxyCONTIN 20 mg oral tablet, extended release 20 mg, 1, tablet, By Mouth, Every 12 hours, chisel mortiser operator chacked fill 03/06/24, # 14 tablet, Refills 0, Tot. Refills 0, Maintenance, 03/04/24 12:02:00 EDT, Route to Pharmacy Electronically, [facility]/pharmacy #1972,Partial fill upon patient [...] Confirmed Active Tobacco use disorder Confirmed Active 80435 r lung wedge resection Social History Social History Type Response Smoking Status Former smoker, quit more than 30 days ago; Total pack years: 45; entered on: 09/17/23 Sex Patient Care team information Care Team Personnel Name: Aurelia Yang RN Position: S RN Member Role: Primary Care Nurse Name: Rhonda Escobedo NP Position: [facility] PCO Associate Professional Member Role: PCP Address: Address: [address] [place] [address], [address] [place] [address]- Name: Yue Delgado RN Position: S RN Member Role: Primary Care Nurse Name: Debo Gagnon RN Position: S RN Member Role: Primary Care Nurse Name: Lisa Awad RN Position: S RN Member Role: Primary Care Nurse Name: Elly Rodriges RN Position: [facility] RN Member Role: Primary Care Nurse Name: Nilda Pop RN Position: S RN Member Role: Primary Care Nurse Care Team Related Persons Name: CHARLINE DIOP Address: [place] [address] Name: ELDER ANDERSON Address: home [address] [place] [address] Name: MAEGAN ANDERSON Address: home [address] [place] [address]
--- OUTSIDE RECORDS SUMMARY | 2024-03-09 07:29 | XMS_ITS | Continuity of Care Document ---
Author Organization [facility] Adult Address [address] [place] [address]- Care Team Providers Care Chief Clerk Name Role Phone Tonja TOURE, Jeannette Olivera Primary Care Physicia n Encounter [facility] Date(s): 05/09/21 - 06/08/21 [facility] Adult [address] [place] [address]- [place] Allergies, Adverse Reactions, Alerts Substance Reaction [...] 84 capsule, 0 Refills, Maintenance, 04/15/21 10:30:00EDT, [facility]/pharmacy #1234, Partial fill upon patient request if the prescription is for a schedule IIopioid drug., use 6 cartridges per day, 170, cm, 09... Start Date: 04/15/21 Status: Ordered ProAir HFA 90 mcg/inh inhalation aerosol 2 puffs, Inhalation, Every 4 hours, PRN NEEDED FOR WHEEZE, # 1 each, 5 Refills, Maintenance, 03/01/21 12:03:00 EDT, [facility]/pharmacy #1234, 2 puffs Inhalation Every 4 [...]
--- OUTSIDE RECORDS SUMMARY | 2024-03-09 07:29 | XMS_ITS | Continuity of Care Document ---
Author Organization [facility] Adult Address [address] [place] [address]- Care Team Providers Care Lens Dotter Name Role Phone Tonja TOURE, Jeannette Olivera Primary Care Physicia n [facility] Date[facility]s): 10/17/21 - 11/16/21 [facility] Adult [address] [place] [address]- Allergies, Adverse Reactions, Alerts Substance Reaction Severity [...] 10/17/21 8:30:00 EDT, Route to Pharmacy Electronically, [facility]/pharmacy #1234, Partial fill upon patient request ifthe prescription is for a schedule II opioid drug.,... Start Date: 10/17/21 Status: Ordered Anusol-HC 2.5% cream with applicator 1 application, Rectally, 2 times a day, # 30 Gm, 1 Refills, Maintenance, 09/24/21 13:25:00 EST, Cream, [facility]/pharmacy #1234, Partial fill upon patient request if the prescription is for a schedule II opioid drug., 1 application Rectally 2 times a day, 1... Start Date: 09/24/21 Status: Ordered Anusol-HC 2.5% cream with applicator 1 application, Rectally, 2 times a day, # 30 Gm, 1 Refills, Maintenance, 06/27/21 14:24:00 EST, Cream, [facility]/pharmacy #1234, Partial fill upon patient request if the prescription is for a schedule II opioid drug., 1 application Rectally 2 times a day, 1... Start Date: 06/27/21 Status: Ordered atorvastatin 20 mg oral tablet 1 tablet = 20 mg, By Mouth, Daily, # 30 tablet, 5 Refills, Maintenance, 06/19/21 8:09:00 EST, Tablet, [facility]/pharmacy #1234, Partial fill upon patient request [...] 2 Refills, Maintenance, 09/24/21 11:18:00 EST, Cream, [facility]/pharmacy #1234, Partial fill upon patient request if the prescription is for a schedule II opioid drug., 1 application Topically 3 times a day,... Start Date: 09/24/21 Status: Ordered hydrocortisone topical 25 mg suppository 1 supp = 25 mg, Rectally, 2 times a day, # 28 supp, 0 Refills, Maintenance, 10/02/21 13:05:00 EDT, Suppository, [facility]/pharmacy #1234, Partial fill upon patient request if the prescription is for a schedule II opioid drug., 170, cm, 10/02/21 10:36:00 EDT... Start Date: 10/02/21 Stop Date: 10/16/21 Status: Ordered lisinopril 40 mg oral tablet 1 tablet = 40 mg, By Mouth, Daily, # 30 tablet, 5 Refills, Maintenance, 07/03/21 10:04:00 EST, Tablet, [facility]/pharmacy #1234, Partial fill upon patient request [...] hours, PRN as needed for severe pain, for 7 days, Increase in dose, # 28 tablet, 0 Refills, Acute 11/18/21 8:27:00 EDT, 11/11/21 8:27:00 EDT, Tablet, [facility]/pharmacy #1234, Partial fill upon patient request if the pres... Start Date: 11/11/21 Stop Date: 11/18/21 Status: Ordered oxyCODONE 10 mg oral tablet 1 tablet = 10 mg, By Mouth, Every 6 hours, PRN as needed for severe pain, # 120 tablet, 0 Refills, Maintenance, 11/18/21 8:27:00 EDT, Tablet, [facility]/pharmacy #1234, Partial fill upon patient request if the prescription is for a schedule II opioid drug. M... Start Date: 11/18/21 Stop Date: 12/18/21 Status: Ordered ProAir HFA 90 mcg/inh inhalation aerosol 2 puffs, Inhalation, Every 4 hours, PRN NEEDED FOR WHEEZE, # 1 each, 5 Refills, Maintenance, 07/02/21 8:53:00 EST, [facility]/pharmacy #1234, 2 puffs Inhalation Every 4 [...]
--- OUTSIDE RECORDS SUMMARY | 2024-03-09 07:29 | XMS_ITS | Continuity of Care Document ---
Author Organization [facility] Adult Address [address] [place] [address]- Care Team Providers Care Ampoule Filler And Sealer Name Role Phone Tonja TOURE, Jeannette Olivera Primary Care Physicia n [facility]s): 08/13/21 - 09/12/21 [facility] Adult [address] [place] [address]- Allergies, Adverse Reactions, Alerts Substance Reaction Severity [...] 1 Refills, Maintenance, 06/27/21 14:24:00 EST, Cream, [facility]/pharmacy #1234, Partial fill upon patient request if the prescription is for a schedule II opioid drug., 1 application Rectally 2 times a day, 1... Start Date: 06/27/21 Status: Ordered Anusol-HC 2.5% cream with applicator 1 application, Rectally, 2 times a day, # 30 Gm, 1 Refills, Maintenance, 06/27/21 14:24:00 EST, Cream, [facility]/pharmacy #1234, Partial fill upon patient request if the prescription is for a schedule II opioid drug., 1 application Rectally 2 times a day, 1... Start Date: 06/27/21 Status: Ordered atorvastatin 20 mg oral tablet 1 tablet = 20 mg, By Mouth, Daily, # 30 tablet, 5 Refills, Maintenance, 06/19/21 8:09:00 EST, Tablet, [facility]/pharmacy #1234, Partial fill upon patient request if [...] EDT, Supply Start Date: 03/06/21 Status: Ordered ketoconazole 2% topical cream 1 application, Topically, Daily, for 14 days, Apply to affected skin, # 30 Gm, 0 Refills, Acute 09/13/21 9:48:00 EST, 08/30/21 9:48:00 EST, Cream, [facility]/pharmacy #1234, Partial fill upon patient request if the prescription is for a schedule II opioid dr... Start Date: 08/30/21 Stop Date: 09/13/21 Status: Ordered lisinopril 40 mg oral tablet 1 tablet = 40 mg, By Mouth, Daily, # 30 tablet, 5 Refills, Maintenance, 07/03/21 10:04:00 EST, Tablet, [facility]/pharmacy #1234, Partial fill upon patient request if [...]
--- OUTSIDE RECORDS SUMMARY | 2024-03-09 07:29 | XMS_ITS | Continuity of Care Document ---
Author Organization [facility] Adult Address [address] [place] [address]- Care Team Providers Care Electronics Assembler Name Role Phone Fanny TOURE, Rhonda Primary Care Physician [facility] Date[facility]s): 10/22/21 - 11/21/21 [facility] [address] [place] [address]- Allergies, Adverse Reactions, Alerts Substance Reaction Severity [...] FOR WHEEZING, # 8.5 each, 5 Refills, [facility] [address]39, 17, INHALE 2 PUFFS EVERY 4 HOURS NEEDED FOR WHEEZING, 170, cm, 11/15/21 11:23:00 EDT, Height, 50, kg, 11/15/21 11:23:00 EDT, Dry Weight Start Date: 11/17/21 Status: Ordered amLODIPine 5 mg oral tablet 1 tablet, By Mouth, Daily, # 90 tablet, 0 Refills, [facility] ST[facility] 56461, 170, cm, 11/15/21 11:23:00 EDT,Height, 50, kg, 11/15/21 11:23:00 EDT, Dry Weight Start Date: 11/17/21 Status: Ordered Anusol-HC 2.5% cream with applicator 1 application, Rectally, 2 times a day, # 30 Gm, 1 Refills, Maintenance, 09/24/21 13:25:00 EST, Cream, [facility]/pharmacy #1234, Partial fill upon patient request if the prescription is for a schedule II opioid drug., 1 application Rectally 2 times a day, 1... Start Date: 09/24/21 Status: Ordered Anusol-HC 2.5% cream with applicator 1 application, Rectally, 2 times a day, # 30 Gm, 1 Refills, Maintenance, 06/27/21 14:24:00 EST, Cream, [facility]/pharmacy #1234, Partial fill upon patient request if the prescription is for a schedule II opioid drug., 1 application Rectally 2 times a day, 1... Start Date: 06/27/21 Status: Ordered atorvastatin 20 mg oral tablet 1 tablet = 20 mg, By Mouth, Daily, # 30 tablet, 5 Refills, Maintenance, 11/17/21 19:20:00 EDT, Tablet, [facility]/pharmacy #1234, Partial fill upon patient request if [...] 0 Refills, Maintenance, 11/18/21 8:27:00 EDT, Tablet, [facility]/pharmacy #1234, Partial fill upon patient request if [...]
--- OUTSIDE RECORDS SUMMARY | 2024-03-09 07:29 | XMS_ITS | Continuity of Care Document ---
Author Organization [facility] Adult Address [address] [place] [address]- Care Team Providers Care Rf Test Technician Name Role Phone Tonja TOURE, Jeannette Olievra Primary Care Physicia n Encounter [facility] Date(s): 09/24/21 - 10/01/21 [facility] [address] [place] [phone]- [place] Encounter Diagnosis Hypertension(Discharge Diagnosis) - 09/24/21 Anxiety(Discharge Diagnosis) - 09/24/21 Tobacco use disorder(Discharge Diagnosis) - 09/24/21 Attending Physician: Robin TOURE, Noemy Medina Referring Physician: Tonja TOURE, Jeannette Olivera Allergies, [...] 1 Refills, Maintenance, 06/27/21 14:24:00 EST, Cream, [facility]/pharmacy #[id number], Partial fill upon patient request if [...] a day,... Start Date: 09/24/21 Status: Ordered lisinopril 40 mg oral tablet [...] Effective Dates Health Status Clinical Service Informant Hypertension Discharge Diagnosis 09/24/21 Anxiety Discharge Diagnosis 09/24/21 Tobacco use disorder Discharge Diagnosis 09/24/21 Vital Signs Most recent to oldest [Reference Range]: 1 2 3 Height 170 cm (09/24/21 11:19 AM) 170 cm (09/24/21 11:07 AM) 170 cm (09/24/21 10:59 AM) Weight 56.6 kg (09/24/21 10:59 AM) Oxygen Saturation [94-100 %] 98 % (09/24/21 10:59 AM) Pulse Rate [55-90 bpm] 56 bpm (09/24/21 10:59 AM) Body Mass Index [18.5-24.99] 19.58 (09/24/21 10:59 AM) Blood Pressure [90-138/55-84 mm Hg] 160/78mm Hg *H* (09/24/21 11:19 AM) 159/74mm Hg *H* (09/24/21 11:07 AM) 173/79mm Hg *H* (09/24/21 10:59 AM) Temperature [96.8-100.4 DegF] 98.2 DegF (09/24/21 10:59 AM) Mode of Delivery (Oxygen) Room air (09/24/21 10:59 AM) Blood pressure sites Arm, left (09/24/21 11:19 AM) Arm, left (09/24/21 11:07 AM) Arm, left (09/24/21 10:59 AM) Temperature Route Temporal (09/24/21 10:59 AM) Weight Obtained Via Standing scale (09/24/21 10:59 AM) Social History Social History Type Response Tobacco Other: Smokes about 12 cigarettes daily. Prior to this, smoking about 1 PPD for 35 years.. Sex
--- OUTSIDE RECORDS SUMMARY | 2024-03-09 07:29 | XMS_ITS | Continuity of Care Document ---
Author Organization [facility] Adult Address [address] [place] [address]- Care Team Providers Care Patent Drafter Name Role Phone Fanny TOURE, Rhonda Primary Care Physician [phone] [facility]counter [facility] Date(s): 11/29/21 - 12/29/21 [facility] [address] [place] [address]- Allergies, Adverse Reactions, Alerts Substance Reaction Severity [...] FOR WHEEZING, # 8.5 each, 5 Refills, [facility], 17, INHALE 2 PUFFS EVERY 4 HOURS NEEDED FOR WHEEZING, 170, cm, 11/15/21 11:23:00 EDT, Height, 50, kg, 11/15/21 11:23:00 EDT, Dry Weight Start Date: 11/17/21 Status: Ordered amLODIPine 5 mg oral tablet 1 tablet, By Mouth, Daily, # 90 tablet, 0 Refills, [facility] 23261, 170, cm, 11/15/21 11:23:00 EDT,Height, 50, kg, 11/15/21 11:23:00 EDT, Dry Weight Start Date: 11/17/21 Status: Ordered amoxicillin-clavulanate 875 mg-125 mg oral tablet 1 tablet, By Mouth, Every 12 hours, for 10 days, # 20 tablet, 0 Refills, Acute 12/30/21 17:07:00 EDT, 12/20/21 17:07:00 EDT, Tablet, [facility]/pharmacy #1234, Partial fill upon patient request if the prescription is for a schedule II opioid drug., 170, cm,... Start Date: 12/20/21 Stop Date: 12/30/21 Status: Ordered Anusol-HC 2.5% cream with applicator 1 application, Rectally, 2 times a day, # 30 Gm, 1 Refills, Maintenance, 09/24/21 13:25:00 EST, Cream, [facility]/pharmacy #1234, Partial fill upon [...] EVERY DAY, # 90 tablet, 1 Refills, [facility] ST[facility] 16669, 170, cm, 12/17/21 8:41:00 EDT, Height, 50, [...] 2 Refills, Maintenance, 09/24/21 11:18:00 EST, Cream, [facility]/pharmacy #1234, Partial fill upon patient request if the prescription is for a schedule II opioid drug., 1 application Topically 3 times a day,... Start Date: 09/24/21 Status: Ordered hydrocortisone topical 25 mg suppository 1 supp = 25 mg, Rectally, 2 times a day, # 28 supp, 0 Refills, Maintenance, 10/02/21 13:05:00 EDT, Suppository, [facility]/pharmacy #1234, Partial fill upon patient request if the prescription is for a schedule II opioid drug., 170, cm, 10/02/21 10:36:00 EDT... Start Date: 10/02/21 Stop Date: 10/16/21 Status: Ordered ipratropium nasal 21 mcg/inh spray 2 sprays, Nares, Both, 3 times a day, PRN as needed for congestion, # 1 each, 0 Refills, Acute 01/19/22 17:07:00 EDT, 12/20/21 17:07:00 EDT, [facility]/pharmacy #1234, Partial fill upon patient request if the prescription is for a schedule II opioid drug., 2... Start Date: 12/20/21 Stop Date: 01/19/22 Status: Ordered lisinopril 10 mg oral tablet 1, tablet, By Mouth, Daily, # 30 tablet, Refills 1, Route to Pharmacy Electronically, [facility] STORE 45524, 170, cm, 12/05/21 10:11:00 EDT, Height, 50, kg, 11/15/21 11:23:00 EDT, Dry Weight Start Date: 12/13/21 Status: Ordered lisinopril 40 mg oral tablet See Instructions, TAKE 1 TABLET BY MOUTH EVERY DAY, # 90 tablet, 1 Refills, [facility] ST[facility] 54361, 170, cm, 12/17/21 8:41:00 EDT, Height, 50, kg, 11/15/21 11:23:00 EDT, Dry Weight Start Date: 12/17/21 Status: Ordered Nicotrol Inhaler 10 mg inhalation device See Instructions, use 6 cartridges per day, # 84 capsule, 0 Refills, Maintenance, 04/15/21 10:30:00EDT, [facility]/pharmacy #1234, Partial fill upon patient request if the prescription is for a schedule IIopioid drug., use 6 cartridges per day, 170, cm, 09... Start Date: 04/15/21 Status: Ordered oxyCODONE 10 mg oral tablet 1 tablet = 10 mg, By Mouth, Every 6 hours, PRN as needed for severe pain, # 120 tablet, 0 Refills, Maintenance, 12/17/21 10:05:00 EDT, Tablet, [facility]/pharmacy #1234, Partial fill upon patient request ifthe prescription is for a schedule II opioid drug.... Start Date: 12/17/21 Stop Date: 01/16/22 Status: Ordered OxyCONTIN 10 mg oral tablet, extended release 10 mg, 1, tablet, By Mouth, Every 12 hours, # 56 tablet, Refills 0, Tot. Refills 0, Maintenance, 12/13/21 10:46:00 EDT, Route to Pharmacy Electronically, [facility]/pharmacy #[id number], in addition to his IR oxycodone, 170, [...]
--- OUTSIDE RECORDS SUMMARY | 2024-03-09 07:29 | XMS_ITS | Continuity of Care Document ---
Author Organization [facility] Adult Address [address] [place] [address]- Care Team Providers Care Mining Professionals Name Role Phone Fanny TOURE, Rhonda Primary Care Physician [facility] Date(s): 08/17/23 - 09/16/23 [facility] Adult [address] [place] [address]- Allergies, Adverse Reactions, Alerts Substance Reaction Severity [...] Refills, Maintenance, 05/18/23 13:33:00 EDT, [facility], 25, INHALE 1 PUFF 4 TIMES A DAY NEEDED FOR COUGH, 170, cm, 05/05/23 12:54:00 EDT, Height, 50, kg, 11/15/21 11:2... Start Date: 05/18/23 Status: Ordered amLODIPine 5 mg oral tablet 1 tablet, By Mouth, Daily, # 90 tablet, 1 Refills, Maintenance, 06/09/23 9:12:00 EST, [facility], 170, cm, 06/03/23 14:00:00 EST, Height, 51, kg, 06/03/23 14:00:00 EST, Dry Weight Start Date: 06/09/23 Status: Ordered atorvastatin 20 mg oral tablet 1 tablet, By Mouth, Daily, # 90 tablet, 1 Refills, Maintenance, 07/29/23 9:02:00 EST, [facility], 170, cm, 06/23/23 10:13:00 EST, Height, 51, kg, 06/03/23 14:00:00 EST, Dry Weight Start Date: 07/29/23 Status: Ordered celecoxib 200 mg oral capsule 1 capsule = 200 mg, By Mouth, 2 times a day, # 14 capsule, 0 Refills, Maintenance, 06/04/23 13:40:00 EST, Capsule, [facility], Partial fill upon patient [...] 06/04/23 13:40:00 EST, Route to Pharmacy Electronically, [facility], Partial fill uponpatient request [...] Unknown, 5 Refills, Maintenance, 12/11/22 19:25:00 EDT, [facility] 81982, 90, INSTILL 2 SPRAYS INTO EACH NOSTRIL 3 TIMES A DAY NEEDED FOR CONGESTION, 1... Start Date: 12/11/22 Status: Ordered lisinopril 10 mg oral tablet 1, tablet, By Mouth, Daily, # 90 tablet, Refills 1, Maintenance, 09/07/23 9:20:00 EST, Route to Pharmacy Electronically, [facility] 08198, 170, cm, 07/29/23 14:04:00 EST, Height, 51, kg, 06/03/23 14:00:00 EST, Dry Weight Start Date: 09/07/23 Status: Ordered metoprolol 25 mg oral tablet 12.5 mg, 0.5, tablet, By Mouth, Every 12 hours, # 30 tablet, Refills 0, Tot. Refills 0, Maintenance, 06/04/23 13:43:00 EST, Route to Pharmacy Electronically, [facility], Partial fill upon patient request if the prescription is for a sche... Start Date: 06/04/23 Stop Date: 07/04/23 Status: Ordered nicotine 14 mg/24 hr transdermal film, extended release 1 patch, Topically, Daily, # 28 patch, 0 Refills, Maintenance, 07/27/23 14:23:00 EST, [facility] STORE 56618, 28, APPLY 1 PATCH TOPICALLY DAILY, 170, cm, 06/23/23 10:13:00 EST, Height, 51, kg, 06/03/23 14:00:00 EST, Dry Weight Start Date: 07/27/23 Status: Ordered oxyCODONE 10 mg oral tablet 1 tablet = 10 mg, By Mouth, Every 6 hours, PRN as needed for pain, timber girdler assessed fill 09/15, # 112 tablet, 0 Refills, Maintenance, 09/14/23 20:05:00 EST, Tablet, [facility]/pharmacy #[id number], Partial fill upon patient request if the prescription is for a schedule... Start Date: 09/14/23 Stop Date: 10/12/23 Status: Ordered OxyCONTIN 20 mg oral tablet, extended release 20 mg, 1, tablet, By Mouth, Every 12 hours, timber girdler chacked fill 09/15/23, # 56 tablet, Refills 0, Tot. Refills 0, Maintenance, 09/14/23 20:07:00 EST, Route to Pharmacy Electronically, [facility]/pharmacy #[id number],Partial fill upon patient [...] Confirmed Active Tobacco use disorder Confirmed Active 26056 r lung wedge resection Social History Social History Type Response Tobacco Use: 4 or less cigar ettes(less than 1/4 pack)/day in last 30 days. Other: 2-3 cig/d x 40 years; was at 0.5 pp/d. Sex Patient Care team information Care Team Personnel Name: Aurelia Yang RN Position: [facility] RN Member Role: Primary Care Nurse Name: Rhonda Escobedo NP Position: [facility] PCO Associate Professional Member Role: PCP Address: Address: [address] [place] [address], [address]rd [address] [place], [place] [address] Name: Yue Delgado RN Position: S RN Member Role: Primary Care Nurse Name: Debo Gagnon Position: S RN Member Role: Primary Care Nurse Name: Lisa Awad RN Position: S RN Member Role: Primary Care Nurse Name: Elly Rodriges RN Position: [facility] RN Member Role: Primary Care Nurse Name: Nilda Pop RN Position: S RN Member Role: Primary Care Nurse Care Team Related Persons Name: CHARLINE DIOP Address: [place] [address] Name: ELDER ANDERSON Address: home [address] [place] [address] Name: MAEGAN ANDERSON Address: home [address] [place] [address]
--- OUTSIDE RECORDS SUMMARY | 2024-03-09 07:29 | XMS_ITS | Continuity of Care Document ---
Author Organization [facility] Adult Address [address] [place] [address]- Care Team Providers Care Retail Special Event Associate Name Role Phone Fanny TOURE, Rhonda Primary Care Physician [facility]counter [facility] Date(s): 12/03/23 - 01/02/24 [facility] Adult [address] [place] [address]- Allergies, Adverse Reactions, Alerts Substance Reaction Severity [...] Refills, Maintenance, 06/09/23 9:12:00 EST, [facility], 170, cm, 06/03/23 14:00:00 EST, Height, 51, kg, 06/03/23 14:00:00 EST, Dry Weight Start Date: 06/09/23 Status: Ordered atorvastatin 20 mg oral tablet 1 tablet, By Mouth, Daily, # 90 tablet, 1 Refills, Maintenance, 07/29/23 9:02:00 EST, [facility], 170, cm, 06/23/23 10:13:00 EST, Height, 51, kg, 06/03/23 14:00:00 EST, Dry Weight Start Date: 07/29/23 Status: Ordered celecoxib 200 mg oral capsule 1 capsule = 200 mg, By Mouth, 2 times a day, # 14 capsule, 0 Refills, Maintenance, 06/04/23 13:40:00 EST, Capsule, [facility], Partial fill upon patient [...] 06/04/23 13:40:00 EST, Route to Pharmacy Electronically, [facility] 3, Partial fill uponpatient request if [...] Unknown, 5 Refills, Maintenance, 12/11/22 19:25:00 EDT, [facility] 65662, 90, INSTILL 2 SPRAYS INTO EACH NOSTRIL 3 TIMES A DAY NEEDED FOR CONGESTION, 1... Start Date: 12/11/22 Status: Ordered lisinopril 10 mg oral tablet 1, tablet, By Mouth, Daily, # 90 tablet, Refills 1, Maintenance, 09/07/23 9:20:00 EST, Route to Pharmacy Electronically, [facility] 96205, 170, cm, 07/29/23 14:04:00 EST, Height, 51, kg, 06/03/23 14:00:00 EST, Dry Weight Start Date: 09/07/23 Status: Ordered metoprolol 25 mg oral tablet 12.5 mg, 0.5, tablet, By Mouth, Every 12 hours, # 30 tablet, Refills 0, Tot. Refills 0, Maintenance, 06/04/23 13:43:00 EST, Route to Pharmacy Electronically, [facility], Partial fill upon patient request if the prescription is for a sche... Start Date: 06/04/23 Stop Date: 07/04/23 Status: Ordered nicotine 14 mg/24 hr transdermal film, extended release 1 patch, Topically, Daily, # 28 patch, 0 Refills, Maintenance, 07/27/23 14:23:00 EST, [facility] STORE 40310, 28, APPLY 1 PATCH TOPICALLY DAILY, 170, cm, 06/23/23 10:13:00 EST, Height, 51, kg, 06/03/23 14:00:00 EST, Dry Weight Start Date: 07/27/23 Status: Ordered oxyCODONE 10 mg oral tablet 1 tablet = 10 mg, By Mouth, Every 6 hours, PRN as needed for pain, waxer assessed fill 01/05/24, # 112tablet, 0 Refills, Maintenance, 12/26/23 6:35:00 EDT, Tablet, [facility]/pharmacy #[id number], Partial fill uponpatient request if the prescription is for a schedu... Start Date: 12/26/23 Stop Date: 01/23/24 Status: Ordered OxyCONTIN 20 mg oral tablet, extended release 20 mg, 1, tablet, By Mouth, Every 12 hours, waxer chacked fill 01/05/24, # 56 tablet, Refills 0, Tot. Refills 0, Maintenance, 12/26/23 6:35:00 EDT, Route to Pharmacy Electronically, [facility]/pharmacy #[id number], Partial fill upon [...] Confirmed Active Tobacco use disorder Confirmed Active 44922 r lung wedge resection Social History Social [...] Associate Professional Member Role: PCP Address: Address: [address] [place] [address], [address] [place], [place] [address] Name: Yue Delgado RN Position: [facility] [...] Persons Name: CHARLINE DIOP Address: [place] [address] Name: ELDER ANDERSON Address: home [address] [place] [address] Name: MAEGAN ANDERSON Address: home [address] [place] [address]
--- OUTSIDE RECORDS SUMMARY | 2024-03-09 07:29 | XMS_ITS | Continuity of Care Document ---
Author Organization [facility] Address [address] [place] [address]- Care Team Providers Care Research Physician Name Role Phone Tonja TOURE, Jeannette Joselin Primary Care Physicia n [facility] Date[facility]s): 03/19/21 - 05/08/21 [facility] [address] [place], [place] [address] Attending Physician: Sandy Smith MD Admitting Physician: Sandy Smith MD Referring Physician: Todd Kerns MD Allergies, Adverse Reactions, Alerts Substance Reaction [...] 3 Refills, Maintenance, 03/07/21 15:26:00 EDT, Tablet, [facility]/pharmacy #[id number], Partial fill upon patient request if [...] 0 Refills Start Date: 09/09/07 Status: Ordered Ensure Ensure, See Instructions, # [...] 04/08/21 7:58:00 EDT, Route to Pharmacy Electronically, [facility]/pharmacy #1234, Partial fill upon patient request if the prescription is for a schedule II opioid drug.... Start Date: 04/08/21 Status: Ordered Nicotrol Inhaler 10 mg inhalation device See Instructions, use 6 cartridges per day, # 84 capsule, 0 Refills, Maintenance, 04/15/21 10:30:00EDT, [facility]/pharmacy #1234, Partial fill upon patient request if the prescription is for a schedule IIopioid drug., use 6 cartridges per day, 170, cm, 09... Start Date: 04/15/21 Status: Ordered omeprazole 20 mg oral delayed release tablet 1 tablet = 20 mg, By Mouth, Daily, # 90 tablet, 1 Refills, Maintenance, 08/23/20 13:22:00 EST, CR Tablet, [facility]/pharmacy #1234, Partial fill upon patient request if the prescription is for a schedule II opioid drug., 170, cm, 08/21/20 6:19:00 EST, Heigh... Start Date: 08/23/20 Status: Ordered ProAir HFA 90 mcg/inh inhalation aerosol 2 puffs, Inhalation, Every 4 hours, PRN NEEDED FOR WHEEZE, # 1 each, 5 Refills, Maintenance, 03/01/21 12:03:00 EDT, [facility]/pharmacy #1234, 2 puffs Inhalation Every 4 hours,PRN: [...]
--- OUTSIDE RECORDS SUMMARY | 2024-03-09 07:29 | XMS_ITS | Continuity of Care Document ---
Author Organization [facility] Address [address] [place] [address] [address] [place] [address]- Care Team Providers Care Concreting Supervisor Name Role Phone Tonja TOURE, Jeannette Olivera Primary Care Physicia n [facility] Date[facility]s): 01/07/21 - 02/06/21 [facility] [address] [place] [address]- Allergies, Adverse Reactions, Alerts Substance Reaction Severity [...] 12/31/20 9:59:00 EDT, Route to Pharmacy Electronically, [facility]/pharmacy #[id number], Partialfill upon patient request if the [...] Refills, Maintenance, 08/23/20 13:22:00 EST, CR Tablet, [facility]/pharmacy #[id number], Partial fill [...]
--- OUTSIDE RECORDS SUMMARY | 2024-03-09 07:29 | XMS_ITS | Continuity of Care Document ---
Author Organization [facility] Adult Address [address] [place] [address]- Care Team Providers Care Terminal Operations Manager Name Role Phone Fanny TOURE, Rhonda Primary Care Physician [phone] [facility]counter [facility] Date(s): 10/08/23 - 11/07/23 [facility] [address] [place] [address]- Allergies, Adverse Reactions, Alerts Substance Reaction Severity [...] Refills, Maintenance, 06/09/23 9:12:00 EST, [facility], 170, cm, 06/03/23 14:00:00 EST, Height, 51, kg, 06/03/23 14:00:00 EST, Dry Weight Start Date: 06/09/23 Status: Ordered atorvastatin 20 mg oral tablet 1 tablet, By Mouth, Daily, # 90 tablet, 1 Refills, Maintenance, 07/29/23 9:02:00 EST, [facility], 170, cm, 06/23/23 10:13:00 EST, Height, 51, kg, 06/03/23 14:00:00 EST, Dry Weight Start Date: 07/29/23 Status: Ordered celecoxib 200 mg oral capsule 1 capsule = 200 mg, By Mouth, 2 times a day, # 14 capsule, 0 Refills, Maintenance, 06/04/23 13:40:00 EST, Capsule, [facility], Partial fill upon patient [...] 06/04/23 13:40:00 EST, Route to Pharmacy Electronically, [facility], Partial fill uponpatient request if [...] Unknown, 5 Refills, Maintenance, 12/11/22 19:25:00 EDT, [facility] 21175, 90, INSTILL 2 SPRAYS INTO EACH NOSTRIL 3 TIMES A DAY NEEDED FOR CONGESTION, 1... Start Date: 12/11/22 Status: Ordered lisinopril 10 mg oral tablet 1, tablet, By Mouth, Daily, # 90 tablet, Refills 1, Maintenance, 09/07/23 9:20:00 EST, Route to Pharmacy Electronically, [facility] 96986, 170, cm, 07/29/23 14:04:00 EST, Height, 51, kg, 06/03/23 14:00:00 EST, Dry Weight Start Date: 09/07/23 Status: Ordered metoprolol 25 mg oral tablet 12.5 mg, 0.5, tablet, By Mouth, Every 12 hours, # 30 tablet, Refills 0, Tot. Refills 0, Maintenance, 06/04/23 13:43:00 EST, Route to Pharmacy Electronically, [facility], Partial fill upon patient request if the prescription is for a sche... Start Date: 06/04/23 Stop Date: 07/04/23 Status: Ordered nicotine 14 mg/24 hr transdermal film, extended release 1 patch, Topically, Daily, # 28 patch, 0 Refills, Maintenance, 07/27/23 14:23:00 EST, [facility] 29851, 28, APPLY 1 PATCH TOPICALLY DAILY, 170, cm, 06/23/23 10:13:00 EST, Height, 51, kg, 06/03/23 14:00:00 EST, Dry Weight Start Date: 07/27/23 Status: Ordered oxyCODONE 10 mg oral tablet 1 tablet = 10 mg, By Mouth, Every 6 hours, PRN as needed for pain, instructor modeling assessed fill 10/13/23, # 112tablet, 0 Refills, Maintenance, 10/12/23 17:07:00 EDT, Tablet, [facility]/pharmacy #[id number], Partial fill upon patient request if the prescription is for a sched... Start Date: 10/12/23 Stop Date: 11/09/23 Status: Ordered OxyCONTIN 20 mg oral tablet, extended release 20 mg, 1, tablet, By Mouth, Every 12 hours, instructor modeling chacked fill 10/13/23, # 56 tablet, Refills 0, Tot. Refills 0, Maintenance, 10/12/23 17:07:00 EDT, Route to Pharmacy Electronically, [facility]/pharmacy #[id number],Partial fill upon patient request [...] Confirmed Active Tobacco use disorder Confirmed Active 16090 r lung wedge resection Social History Social [...] Professional Member Role: PCP Address: Address: [address] [place] [address], [address] [place], [place] [address] Name: Yue Delgado RN Position: S RN Member Role: Primary Care Nurse Name: Debo Gagnon Position: S RN Member Role: Primary Care Nurse Name: Lisa Awad RN Position: S RN Member Role: Primary Care Nurse Name: Elly Rodriges RN Position: [facility] SN RN Member Role: Primary Care Nurse Name: Nilda Pop RN Position: S RN Member Role: Primary Care Nurse Care Team Related Persons Name: CHARLINE DIOP Address: [place] [address] Name: ELDER ANDERSON Address: home [address] [place] [address] Name: MAEGAN ANDERSON Address: home [address] [place] [address]
--- OUTSIDE RECORDS SUMMARY | 2024-03-09 07:30 | XMS_ITS | Continuity of Care Document ---
Author Organization [facility] Address [address] [place] [address], [address] [place] [address]- Care Team Providers Care Environmental Science Technician Name Role Phone Fanny PSYCHOLOGIST MILITARY PERSONNEL, Rhonda Primary Care Physician [facility] Date[facility]): 07/[facility]/22 - 08/09/22 [facility] [address] [place] [address], [address] [place], [place] [address] Attending Physician: Admtr, Sam Admitting Physician: Admtr, [id number] Referring Physician: Admtr, [id number] Allergies, Adverse Reactions, [...] 8.5 each, 5 Refills, Maintenance,06/04/22 13:05:00 EST, [id number], 30, TAKE 2 PUFFS BY MOUTH EVERY 4 HOURS NEEDED FOR WHEEZING, 170, cm, 04/10/22 14:30:00 EDT, Height, 50, kg,... Start Date: 06/04/22 Status: Ordered amLODIPine 5 mg oral tablet 1 tablet, By Mouth, Daily, # 90 tablet, 1 Refills, Maintenance, 06/23/22 9:11:00 EST, [id number], 170, cm, 04/10/22 14:30:00 EDT, Height, 50, [...] tablet, 1 Refills, Maintenance, 08/05/22 7:46:00 EST, [facility] [id number], 170, cm, 08/05/22 7:32:00 EST, Height, 50, kg, 11/15/21 11:23:00 EDT, Dry Weight Start Date: 08/05/22 Status: Ordered atorvastatin 20 mg oral tablet 1 tablet = 20 mg, By Mouth, Daily, # 30 tablet, 5 Refills, Maintenance, 11/17/21 19:20:00 EDT, Tablet, [facility]/pharmacy #[id number], Partial fill upon patient request if the prescription is for a schedule II opioid drug., 170, cm, 11/15/21 11:23:00 EDT, Height,... Start Date: 11/17/21 Status: Ordered atorvastatin 20 mg oral tablet 1 tablet = 20 mg, By Mouth, Daily, for 90 days, # 90 tablet, 1 Refills, Physician Stop 12/15/22 11:17:00 EDT, 06/18/22 11:17:00 EST, [facility]/pharmacy #1234, 170, cm, 04/10/22 14:30:00 EDT, Height, [...] 2 Refills, Maintenance, 09/24/21 11:18:00 EST, Cream, [facility]/pharmacy #1234, Partial fill upon patient request if the prescription is for a schedule II opioid drug., 1 application Topically 3 times a day,... Start Date: 09/24/21 Status: Ordered hydrocortisone topical 25 mg suppository 1 supp = 25 mg, Rectally, 2 times a day, # 28 supp, 0 Refills, Maintenance, 10/02/21 13:05:00 EDT, Suppository, [facility]/pharmacy #1234, Partial fill upon patient request if the prescription is for a schedule II opioid drug., 170, cm, 10/02/21 10:36:00 EDT... Start Date: 10/02/21 Stop Date: 10/16/21 Status: Ordered ipratropium nasal 21 mcg/inh spray See Instructions, INSTILL 2 SPRAYS INTO EACH NOSTRIL 3 TIMES A DAY NEEDED FOR CONGESTION, # 90 Unknown, 1 Refills, Maintenance, 07/23/22 14:20:00 EST, [facility] STORE [id number], 90, INSTILL 2 SPRAYS INTO EACH NOSTRIL 3 TIMES A DAY NEEDED FOR CONGESTION, 1... Start Date: 07/23/22 Status: Ordered lisinopril 10 mg oral tablet 1, tablet, By Mouth, Daily, # 90 tablet, Refills 1, Tot. Refills 1, Maintenance, 02/16/22 16:25:00 EDT, [id number], [facility], cm, 12/31/21 8:21:00 EDT, Height, 50, kg, 11/15/21 11:23:00 EDT, Dry Weight Start Date: 02/16/22 Status: Ordered Nicotrol Inhaler 10 mg inhalation device See Instructions, USE 6 CARTRIDGES PER DAY, # 168 Unknown, 0 Refills, Maintenance, 02/03/22 9:21:00EDT, [facility]/pharmacy #1234, 28, USE 6 CARTRIDGES PER DAY, 170, cm, 12/31/21 8:21:00 EDT, Height, 50, kg, 11/15/21 11:23:00 EDT, Dry Weight Start Date: 02/03/22 Status: Ordered oxyCODONE 10 mg oral tablet 1 tablet = 10 mg, By Mouth, Every 6 hours, PRN as needed for severe pain, fill on 07/24/22, # 112 tablet, 0 Refills, Maintenance, 07/23/22 20:14:00 EST, Tablet, [facility]/pharmacy #1234, Partial fill upon patient request if the prescription is for a schedule... Start Date: 07/23/22 Stop Date: 08/20/22 Status: Ordered OxyCONTIN 10 mg oral tablet, extended release 10 mg, 1, tablet, By Mouth, Every 12 hours, fill on 07/24/22, # 56 tablet, Refills 0, Tot. Refills 0,Maintenance, 07/23/22 20:14:00 EST, [id number] in addition to his IR oxycodone, [...] Team Personnel Name: Rhonda Escobedo NP Position: [facility] PCO Associate Professional Member Role: PCP Address: Address: [address] [place] [address], [address] [place] [address]- Name: Lisa Awad RN Position: [facility] RN Member Role: Primary Care Nurse Name: Elly Rodriges RN Position: [facility] RN Member Role: Primary Care Nurse Care Team Related Persons Name: DIOP CHARLINE Address: [place] [address] Name: ELDER ANDERSON Address: home [address] [address] Name: MAEGAN ANDERSON Address: home [address] [place] [address]
--- OUTSIDE RECORDS SUMMARY | 2024-03-09 07:30 | XMS_ITS | Continuity of Care Document ---
Author Organization [facility] Address [address] [place] [address]- Care Team Providers Care Craniologist Name Role Phone Fanny TOURE, Rhonda Primary Care Physician [facility] Date[facility]s): 09/18/22 - 10/18/22 [facility] [address] [place] [id number]- Allergies, Adverse Reactions, Alerts Substance Reaction Severity [...] 8.5 each, 5 Refills, Maintenance,06/04/22 13:05:00 EST, [facility] [id number], 30, TAKE 2 PUFFS BY MOUTH EVERY 4 HOURS NEEDED FOR WHEEZING, 170, cm, 04/10/22 14:30:00 EDT, Height, 50, kg,... Start Date: 06/04/22 Status: Ordered amLODIPine 5 mg oral tablet 1 tablet, By Mouth, Daily, # 90 tablet, 1 Refills, Maintenance, 06/23/22 9:11:00 EST, [id number], 170, cm, 04/10/22 14:30:00 EDT, Height, 50, [...] tablet, 1 Refills, Maintenance, 08/05/22 7:46:00 EST, [facility]8422, 170, cm, 08/05/22 7:32:00 EST, Height, 50, kg, 11/15/21 11:23:00 EDT, Dry Weight Start Date: 08/05/22 Status: Ordered atorvastatin 20 mg oral tablet 1 tablet = 20 mg, By Mouth, Daily, # 30 tablet, 5 Refills, Maintenance, 11/17/21 19:20:00 EDT, Tablet, [facility]/pharmacy #1234, Partial fill upon patient request if the prescription is for a schedule II opioid drug., 170, cm, 11/15/21 11:23:00 EDT, Height,... Start Date: 11/17/21 Status: Ordered atorvastatin 20 mg oral tablet 1 tablet = 20 mg, By Mouth, Daily, for 90 days, # 90 tablet, 1 Refills, Physician Stop 12/15/22 11:17:00 EDT, 06/18/22 11:17:00 EST, [facility], 170, cm, 04/10/22 14:30:00 EDT, Height, [...] 2 Refills, Maintenance, 09/24/21 11:18:00 EST, Cream, [facility]/pharmacy #1234, Partial fill upon patient request if the prescription is for a schedule II opioid drug., 1 application Topically 3 times a day,... Start Date: 09/24/21 Status: Ordered hydrocortisone topical 25 mg suppository 1 supp = 25 mg, Rectally, 2 times a day, # 28 supp, 0 Refills, Maintenance, 10/02/21 13:05:00 EDT, Suppository, [facility]/pharmacy #1234, Partial fill upon patient request if the prescription is for a schedule II opioid drug., 170, cm, 10/02/21 10:36:00 EDT... Start Date: 10/02/21 Stop Date: 10/16/21 Status: Ordered ipratropium nasal 21 mcg/inh spray See Instructions, INSTILL 2 SPRAYS INTO EACH NOSTRIL 3 TIMES A DAY NEEDED FOR CONGESTION, # 90 Unknown, 1 Refills, Maintenance, 07/23/22 14:20:00 EST, [facility] STORE [id number], 90, INSTILL 2 SPRAYS INTO EACH NOSTRIL 3 TIMES A DAY NEEDED FOR CONGESTION, 1... Start Date: 07/23/22 Status: Ordered lisinopril 10 mg oral tablet 1, tablet, By Mouth, Daily, # 90 tablet, Refills 1, Maintenance, 08/25/22 11:40:00 EST, Route to Pharmacy Electronically, [facility] STORE [id number], 170, cm, 08/05/22 8:05:00 EST, Height, 50, kg, 11/15/21 11:23:00 EDT, Dry Weight Start Date: 08/25/22 Status: Ordered Nicotrol Inhaler 10 mg inhalation device See Instructions, USE 6 CARTRIDGES PER DAY, # 168 Unknown, 0 Refills, Maintenance, 02/03/22 9:21:00EDT, [facility]/pharmacy #1234, 28, USE 6 CARTRIDGES PER DAY, 170, cm, 12/31/21 8:21:00 EDT, Height, 50, kg, 11/15/21 11:23:00 EDT, Dry Weight Start Date: 02/03/22 Status: Ordered oxyCODONE 10 mg oral tablet 1 tablet = 10 mg, By Mouth, Every 6 hours, PRN as needed for severe pain, # 112 tablet, 0 Refills, Maintenance, 10/14/22 7:55:00 EDT, Tablet, [facility]/pharmacy #1234, Partial fill upon patient request if the prescription is for a schedule II opioid drug. M... Start Date: 10/14/22 Stop Date: 11/11/22 Status: Ordered OxyCONTIN 10 mg oral tablet, extended release 10 mg, 1, tablet, By Mouth, Every 12 hours, # 56 tablet, Refills 0, Tot. Refills 0, Maintenance, 10/14/22 7:53:00 EDT, Route to Pharmacy Electronically, [facility]/pharmacy #1234, in addition to his IR oxycodone; fill 10/16/2022, 170, cm, 08/05/22 8:05:00 EST... Start Date: 10/14/22 Stop Date: 11/11/22 Status: Ordered Problem List Condition Confirmation Course [...] Team Personnel Name: Rhonda Escobedo NP Position: [facility] PCO Associate Professional Member Role: PCP Address: Address: [address] [facility], 3rd Floor [place], [place] [address] Name: Lisa Awad RN Position: S RN Member Role: Primary Care Nurse Name: Elly Rodriges RN Position: [facility] RN Member Role: Primary Care Nurse Care Team Related Persons Name: REVA DIOPFER Address: [place] [address] Name: ELDER ANDERSON Address: home [address] [facility] [address] [place] [address] Name: MAEGAN ANDERSON Address: home [address] [place] [address]
--- OUTSIDE RECORDS SUMMARY | 2024-03-09 07:30 | XMS_ITS | Continuity of Care Document ---
Author Organization [facility] Adult Address [address] [place] [address]- Care Team Providers Care Equestrian Trainer Name Role Phone Fanny TOURE, Rhonda Primary Care Physician [facility] Date[facility]s): 03/06/22 - 04/05/22 [facility] [address] [place] [address]- Allergies, Adverse Reactions, Alerts Substance Reaction Severity [...] 8.5 each, 5 Refills, 02/05/22 13:07:00 EDT, [facility]/pharmacy #1234, 17, 2 puffs Inhalation Every [...] 1 Refills, Maintenance, 09/24/21 13:25:00 EST, Cream, [facility]/pharmacy #1234, Partial fill upon patient request if the prescription is for a schedule II opioid drug., 1 application Rectally 2 times a day, 1... Start Date: 09/24/21 Status: Ordered Anusol-HC 2.5% cream with applicator 1 application, Rectally, 2 times a day, # 30 Gm, 1 Refills, Maintenance, 06/27/21 14:24:00 EST, Cream, [facility]/pharmacy #1234, Partial fill upon patient request if the prescription is for a schedule II opioid drug., 1 application Rectally 2 times a day, 1... Start Date: 06/27/21 Status: Ordered atorvastatin 20 mg oral tablet 1 tablet = 20 mg, By Mouth, Daily, # 30 tablet, 5 Refills, Maintenance, 11/17/21 19:20:00 EDT, Tablet, [facility]/pharmacy #1234, Partial fill upon patient request if the prescription is for a schedule II opioid drug., 170, cm, 11/15/21 11:23:00 EDT, Height,... Start Date: 11/17/21 Status: Ordered atorvastatin 20 mg oral tablet See Instructions, TAKE 1 TABLET BY MOUTH EVERY DAY, # 90 tablet, 1 Refills, [facility] ST[facility] 24021, 170, cm, 12/17/21 8:41:00 EDT, Height, 50, [...] 2 Refills, Maintenance, 09/24/21 11:18:00 EST, Cream, [facility]/pharmacy #1234, Partial fill upon patient request if the prescription is for a schedule II opioid drug., 1 application Topically 3 times a day,... Start Date: 09/24/21 Status: Ordered hydrocortisone topical 25 mg suppository 1 supp = 25 mg, Rectally, 2 times a day, # 28 supp, 0 Refills, Maintenance, 10/02/21 13:05:00 EDT, Suppository, [facility]/pharmacy #1234, Partial fill upon patient request if the prescription is for a schedule II opioid drug., 170, cm, 10/02/21 10:36:00 EDT... Start Date: 10/02/21 Stop Date: 10/16/21 Status: Ordered ipratropium nasal 21 mcg/inh spray See Instructions, INSTILL 2 SPRAYS INTO EACH NOSTRIL 3 TIMES A DAY NEEDED FOR CONGESTION, # 30 Unknown, 3 Refills, [facility] STORE 93339, 30, INSTILL 2 SPRAYS INTO EACH NOSTRIL 3 TIMES A DAY NEEDED FOR CONGESTION, 170, cm, 12/31/21 8:21:00 EDT, Height... Start Date: 03/03/22 Status: Ordered lisinopril 10 mg oral tablet 1, tablet, By Mouth, Daily, # 90 tablet, Refills 1, Tot. Refills 1, Maintenance, 02/16/22 16:25:00 EDT, [id number], 170, cm, 12/31/21 8:21:00 EDT, Height, 50, kg, 11/15/21 11:23:00 EDT, Dry Weight Start Date: 02/16/22 Status: Ordered Nicotrol Inhaler 10 mg inhalation device See Instructions, USE 6 CARTRIDGES PER DAY, # 168 Unknown, 0 Refills, Maintenance, 02/03/22 9:21:00EDT, [facility]/pharmacy #1234, 28, USE 6 CARTRIDGES PER DAY, 170, cm, 12/31/21 8:21:00 EDT, Height, 50, kg, 11/15/21 11:23:00 EDT, Dry Weight Start Date: 02/03/22 Status: Ordered oxyCODONE 10 mg oral tablet 1 tablet = 10 mg, By Mouth, Every 6 hours, PRN as needed for severe pain, fill on 04/04/22, # 112 tablet, 0 Refills, Maintenance, 04/03/22 18:13:00 EDT, Tablet, [facility]/pharmacy #1234, Partial fill upon patient request if the prescription is for a schedule... Start Date: 04/03/22 Stop Date: 05/01/22 Status: Ordered OxyCONTIN 10 mg oral tablet, extended release 10 mg, 1, tablet, By Mouth, Every 12 hours, fill on 04/04/22, # 56 tablet, Refills 0, Tot. Refills 0, Maintenance, 04/03/22 18:13:00 EDT, [facility], in addition to his IR oxycodone, 170, cm, 12/31/21 8:21:00 E... Start Date: 04/03/22 Stop Date: 05/01/22 Status: Ordered Problem List Condition Effective Dates [...] about 1 PPD for 35 years.. Sex Care Team Personnel Name: Rhonda Escobedo NP Address: [address] [place] [address], 3rd [address] [place], [place] [address]
--- OUTSIDE RECORDS SUMMARY | 2024-03-09 07:30 | XMS_ITS | Continuity of Care Document ---
Author Organization [facility] Address [address] [address]- Care Team Providers Care Mint Wafer Depositor Name Role Phone Tonja TOURE, Jeannette Olivera Primary Care Physicia n Encounter [facility] Date(s): 01/08/21 - 02/07/21 [facility] [address] [facility] [address] [place] [phone]- Attending Physician: Sam Carter Admitting Physician: Sam [...] 12/31/20 9:59:00 EDT, Route to Pharmacy Electronically, [facility]/pharmacy #1234, Partialfill upon patient request if the [...] Maintenance, 08/23/20 13:22:00 EST, CR Tablet, [facility]/pharmacy #1234, Partial fill upon patient request if the prescription is for a schedule II opioid drug., 170, cm, 08/21/20 6:19:00 EST, Heigh... Start Date: 08/23/20 Status: Ordered ProAir HFA 90 mcg/inh inhalation aerosol 2 puffs, Inhalation, Every 4 hours, PRN NEEDED FOR WHEEZE, # 8.5 Unknown, 5 Refills, Maintenance, 10/15/20 8:28:00 EDT, [facility]/pharmacy #1234, 17, 2 puffs Inhalation Every 4 [...]
--- OUTSIDE RECORDS SUMMARY | 2024-03-09 07:30 | XMS_ITS | Continuity of Care Document ---
Author Organization [facility] Adult Address [address] [place] [address]- Care Team Providers Care Exceptional Children'S Teacher Name Role Phone Fanny TOURE, Rhonda Primary Care Physician [phone] [facility] Date[facility]s): 10/25/21 - 11/24/21 [facility] [address] [place] [address]- Allergies, Adverse Reactions, Alerts Substance Reaction Severity [...] FOR WHEEZING, # 8.5 each, 5 Refills, [facility] ST[facility] [id number], 17, INHALE 2 PUFFS EVERY 4 HOURS NEEDED FOR WHEEZING, 170, cm, 11/15/21 11:23:00 EDT, Height, 50, kg, 11/15/21 11:23:00 EDT, Dry Weight Start Date: 11/17/21 Status: Ordered amLODIPine 5 mg oral tablet 1 tablet, By Mouth, Daily, # 90 tablet, 0 Refills, [facility] ST[facility] [id number], 170, cm, 11/15/21 11:23:00 EDT,Height, 50, kg, 11/15/21 11:23:00 EDT, Dry Weight Start Date: 11/17/21 Status: Ordered Anusol-HC 2.5% cream with applicator 1 application, Rectally, 2 times a day, # 30 Gm, 1 Refills, Maintenance, 09/24/21 13:25:00 EST, Cream, [facility]/pharmacy #1234, Partial fill upon patient request if the prescription is for a schedule II opioid drug., 1 application Rectally 2 times a day, 1... Start Date: 09/24/21 Status: Ordered Anusol-HC 2.5% cream with applicator 1 application, Rectally, 2 times a day, # 30 Gm, 1 Refills, Maintenance, 06/27/21 14:24:00 EST, Cream, [facility]/pharmacy #1234, Partial fill upon patient request if the prescription is for a schedule II opioid drug., 1 application Rectally 2 times a day, 1... Start Date: 06/27/21 Status: Ordered atorvastatin 20 mg oral tablet 1 tablet = 20 mg, By Mouth, Daily, # 30 tablet, 5 Refills, Maintenance, 11/17/21 19:20:00 EDT, Tablet, [facility]/pharmacy #1234, Partial fill upon patient [...] 0 Refills, Maintenance, 11/18/21 8:27:00 EDT, Tablet, [facility]/pharmacy #1234, Partial fill upon patient [...]
--- OUTSIDE RECORDS SUMMARY | 2024-03-09 07:30 | XMS_ITS | Continuity of Care Document ---
Author Organization [facility] Address Unknown Care Team Providers Care Molding Engineer Name Role Phone Tonja TOURE, Jeannette Olivera Primary Care Physicia n [facility] Date[facility]s): 05/08/21 - 06/07/21 [facility] Allergies, Adverse Reactions, [...] 84 capsule, 0 Refills, Maintenance, 04/15/21 10:30:00EDT, [facility]/pharmacy #1234, Partial fill upon [...]
--- OUTSIDE RECORDS SUMMARY | 2024-03-09 07:30 | XMS_ITS | Continuity of Care Document ---
Author Organization [facility] Adult Address [address] [place] [address]- Care Team Providers Care Gas Leak Tester Name Role Phone Fanny TOURE, Rhonda Primary Care Physician [facility] Date(s): 04/01/22 - 05/01/22 [facility] [address] [place] [phone]- Allergies, Adverse Reactions, Alerts Substance Reaction Severity Status morphine 1 combative CONFUSED OUT OF IT Active 1hallucintations, confusion Immunizations Given and Recorded Vaccine Date Status Refusal Reason influenza virus vaccine, inactivated 03/19/22 Pedro rded influenza virus vaccine, inactivated 03/03/21 Pedro rded influenza virus vaccine, inactivated 02/18/20 Pedro rded influenza virus vaccine, inactivated 02/26/18 Pedro rded influenza virus vaccine, inactivated 04/05/17 Pedor rded influenza virus vaccine, inactivated 03/28/14 Pedro [...] 8.5 each, 5 Refills, 02/05/22 13:07:00 EDT, [facility]/pharmacy #1234, 17, 2 puffs Inhalation Every [...] 1 Refills, Maintenance, 06/27/21 14:24:00 EST, Cream, [facility]/pharmacy #1234, Partial fill upon patient request if the prescription is for a schedule II opioid drug., 1 application Rectally 2 times a day, 1... Start Date: 06/27/21 Status: Ordered atorvastatin 20 mg oral tablet 1 tablet = 20 mg, By Mouth, Daily, # 30 tablet, 5 Refills, Maintenance, 11/17/21 19:20:00 EDT, Tablet, [facility]/pharmacy #1234, Partial fill upon patient request if the prescription is for a schedule II opioid drug., 170, cm, 11/15/21 11:23:00 EDT, Height,... Start Date: 11/17/21 Status: Ordered atorvastatin 20 mg oral tablet See Instructions, TAKE 1 TABLET BY MOUTH EVERY DAY, # 90 tablet, 1 Refills, [facility] STORE 60788, 170, cm, 12/17/21 8:41:00 EDT, Height, 50, [...] 2 Refills, Maintenance, 09/24/21 11:18:00 EST, Cream, [facility]/pharmacy #1234, Partial fill upon patient request [...] FOR CONGESTION, # 30 Unknown, 3 Refills, [facility] STORE 17537, 30, INSTILL 2 SPRAYS INTO EACH NOSTRIL 3 TIMES A DAY NEEDED FOR CONGESTION, 170, cm, 12/31/21 8:21:00 EDT, Height... Start Date: 03/03/22 Status: Ordered lisinopril 10 mg oral tablet 1, tablet, By Mouth, Daily, # 90 tablet, Refills 1, Tot. Refills 1, Maintenance, 02/16/22 16:25:00 EDT, [facility], 170, cm, 12/31/21 8:21:00 EDT, Height, 50, kg, 11/15/21 11:23:00 EDT, Dry Weight Start Date: 02/16/22 Status: Ordered Nicotrol Inhaler 10 mg inhalation device See Instructions, USE 6 CARTRIDGES PER DAY, # 168 Unknown, 0 Refills, Maintenance, 02/03/22 9:21:00EDT, [facility]/pharmacy #1234, 28, USE 6 CARTRIDGES PER DAY, 170, cm, 12/31/21 8:21:00 EDT, Height, 50, kg, 11/15/21 11:23:00 EDT, Dry Weight Start Date: 02/03/22 Status: Ordered oxyCODONE 10 mg oral tablet 1 tablet = 10 mg, By Mouth, Every 6 hours, PRN as needed for severe pain, fill on 05/02/22, # 112 tablet, 0 Refills, Maintenance, 04/17/22 8:05:00 EDT, Tablet, [facility]/pharmacy #1234, Partial fill upon patient request if the prescription is for a schedule... Start Date: 04/17/22 Stop Date: 05/15/22 Status: Ordered OxyCONTIN 10 mg oral tablet, extended release 10 mg, 1, tablet, By Mouth, Every 12 hours, fill on 05/02/22, # 56 tablet, Refills 0, Tot. Refills 0, Maintenance, 04/17/22 8:05:00 EDT, Route to Pharmacy Electronically, [facility]/pharmacy #[id number], in addition to his IR oxycodone, 170, [...] Personnel Name: Rhonda Escobedo NP Address: Address: [address] [facility], 3rd [address] [place], [place] [address]
--- OUTSIDE RECORDS SUMMARY | 2024-03-09 07:30 | XMS_ITS | Continuity of Care Document ---
Author Organization [facility] Adult Address [address] [place] [address]- Care Team Providers Care Marine Superintendent Name Role Phone Fanny TOURE, Rhonda Primary Care Physician [facility]23 - 11/20/23 [facility] Adult [address] [place] [address]- Allergies, Adverse Reactions, Alerts Substance Reaction Severity [...] Refills, Maintenance, 06/09/23 9:12:00 EST, [facility], 170, cm, 06/03/23 14:00:00 EST, Height, 51, kg, 06/03/23 14:00:00 EST, Dry Weight Start Date: 06/09/23 Status: Ordered atorvastatin 20 mg oral tablet 1 tablet, By Mouth, Daily, # 90 tablet, 1 Refills, Maintenance, 07/29/23 9:02:00 EST, [facility], 170, cm, 06/23/23 10:13:00 EST, Height, 51, kg, 06/03/23 14:00:00 EST, Dry Weight Start Date: 07/29/23 Status: Ordered celecoxib 200 mg oral capsule 1 capsule = 200 mg, By Mouth, 2 times a day, # 14 capsule, 0 Refills, Maintenance, 06/04/23 13:40:00 EST, Capsule, [facility], Partial fill upon patient [...] 06/04/23 13:40:00 EST, Route to Pharmacy Electronically, [facility], Partial fill uponpatient request if the [...] Unknown, 5 Refills, Maintenance, 12/11/22 19:25:00 EDT, [facility] 313[facility], 90, INSTILL 2 SPRAYS INTO EACH NOSTRIL 3 TIMES A DAY NEEDED FOR CONGESTION, 1... Start Date: 12/11/22 Status: Ordered lisinopril 10 mg oral tablet 1, tablet, By Mouth, Daily, # 90 tablet, Refills 1, Maintenance, 09/07/23 9:20:00 EST, Route to Pharmacy Electronically, [facility] 07352, 170, cm, 07/29/23 14:04:00 EST, Height, 51, kg, 06/03/23 14:00:00 EST, Dry Weight Start Date: 09/07/23 Status: Ordered metoprolol 25 mg oral tablet 12.5 mg, 0.5, tablet, By Mouth, Every 12 hours, # 30 tablet, Refills 0, Tot. Refills 0, Maintenance, 06/04/23 13:43:00 EST, Route to Pharmacy Electronically, [facility], Partial fill upon patient request if the prescription is for a sche... Start Date: 06/04/23 Stop Date: 07/04/23 Status: Ordered nicotine 14 mg/24 hr transdermal film, extended release 1 patch, Topically, Daily, # 28 patch, 0 Refills, Maintenance, 07/27/23 14:23:00 EST, [facility] STORE 15917, 28, APPLY 1 PATCH TOPICALLY DAILY, 170, cm, 06/23/23 10:13:00 EST, Height, 51, kg, 06/03/23 14:00:00 EST, Dry Weight Start Date: 07/27/23 Status: Ordered oxyCODONE 10 mg oral tablet 1 tablet = 10 mg, By Mouth, Every 6 hours, PRN as needed for pain, environmental remediation engineer assessed fill 11/10/23, # 112tablet, 0 Refills, Maintenance, 11/10/23 9:25:00 EDT, Tablet, [facility]/pharmacy #1972, Partial fill uponpatient request if the prescription is for a schedu... Start Date: 11/10/23 Stop Date: 12/08/23 Status: Ordered OxyCONTIN 20 mg oral tablet, extended release 20 mg, 1, tablet, By Mouth, Every 12 hours, environmental remediation engineer chacked fill 11/10/23, # 56 tablet, Refills 0, Tot. Refills 0, Maintenance, 11/10/23 9:25:00 EDT, Route to Pharmacy Electronically, [facility]/pharmacy #1972, Partial fill upon patient [...] Confirmed Active Tobacco use disorder Confirmed Active 53476 r lung wedge resection Social History Social History Type Response Smoking Status Former smoker, quit more than 30 days ago; Total pack years: 45; entered on: 09/17/23 Sex Patient Care team information Care Team Personnel Name: Aureila Yang RN Position: [facility] RN Member Role: Primary Care Nurse Name: Rhonda Escobedo NP Position: [facility] PCO Associate Professional Member Role: PCP Address: Address: [address] [place] [address], 3rd Floor [place], [place] [address] Name: Yue Delgado RN Position: [facility] RN Member Role: Primary Care Nurse Name: Debo Gagnon Position: S RN Member Role: Primary Care Nurse Name: Lisa Awad RN Position: S RN Member Role: Primary Care Nurse Name: Elly Rodriges RN Position: [facility] RN Member Role: Primary Care Nurse Name: Nilda Pop RN Position: S RN Member Role: Primary Care Nurse Care Team Related Persons Name: CHARLINE DIOP Address: [place] [address] Name: ELDER ANDERSON Address: home [address] [place] [address] Name: MAEGAN ANDERSON Address: home [address] [place] [address]
--- OUTSIDE RECORDS SUMMARY | 2024-03-09 07:30 | XMS_ITS | Continuity of Care Document ---
Author Organization [facility] Adult Address [address] [place] [address]- Care Team Providers Care Clicking Machine Operator Name Role Phone Fanny TOURE, Rhonda Primary Care Physician [phone] [facility]counter [facility] 09[facility]/22 - 10/18/22 [facility] Adult [address] [place] [phone]- Allergies, Adverse Reactions, Alerts Substance Reaction Severity [...] 8.5 each, 5 Refills, Maintenance,06/04/22 13:05:00 EST, [facility]225, 30, TAKE 2 PUFFS BY MOUTH EVERY 4 HOURS NEEDED FOR WHEEZING, 170, cm, 04/10/22 14:30:00 EDT, Height, 50, kg,... Start Date: 06/04/22 Status: Ordered amLODIPine 5 mg oral tablet 1 tablet, By Mouth, Daily, # 90 tablet, 1 Refills, Maintenance, 06/23/22 9:11:00 EST, [facility]8901, 170, cm, 04/10/22 14:30:00 EDT, Height, 50, [...] tablet, 1 Refills, Maintenance, 08/05/22 7:46:00 EST, [facility] 46397, 170, cm, 08/05/22 7:32:00 EST, Height, 50, kg, 11/15/21 11:23:00 EDT, Dry Weight Start Date: 08/05/22 Status: Ordered atorvastatin 20 mg oral tablet 1 tablet = 20 mg, By Mouth, Daily, # 30 tablet, 5 Refills, Maintenance, 11/17/21 19:20:00 EDT, Tablet, [facility]/pharmacy #1234, Partial fill upon patient request if the prescription is for a schedule II opioid drug., 170, cm, 11/15/21 11:23:00 EDT, Height,... Start Date: 11/17/21 Status: Ordered atorvastatin 20 mg oral tablet 1 tablet = 20 mg, By Mouth, Daily, for 90 days, # 90 tablet, 1 Refills, Physician Stop 12/15/22 11:17:00 EDT, 06/18/22 11:17:00 EST, [facility]/pharmacy #1234, 170, cm, 04/10/22 14:30:00 EDT, Height, [...] 2 Refills, Maintenance, 09/24/21 11:18:00 EST, Cream, [facility]/pharmacy #1234, Partial fill upon patient request if the prescription is for a schedule II opioid drug., 1 application Topically 3 times a day,... Start Date: 09/24/21 Status: Ordered hydrocortisone topical 25 mg suppository 1 supp = 25 mg, Rectally, 2 times a day, # 28 supp, 0 Refills, Maintenance, 10/02/21 13:05:00 EDT, Suppository, [facility]/pharmacy #1234, Partial fill upon patient request if the prescription is for a schedule II opioid drug., 170, cm, 10/02/21 10:36:00 EDT... Start Date: 10/02/21 Stop Date: 10/16/21 Status: Ordered ipratropium nasal 21 mcg/inh spray See Instructions, INSTILL 2 SPRAYS INTO EACH NOSTRIL 3 TIMES A DAY NEEDED FOR CONGESTION, # 90 Unknown, 1 Refills, Maintenance, 07/23/22 14:20:00 EST, [facility] ST[facility] 32287, 90, INSTILL 2 SPRAYS INTO EACH NOSTRIL 3 TIMES A DAY NEEDED FOR CONGESTION, 1... Start Date: 07/23/22 Status: Ordered lisinopril 10 mg oral tablet 1, tablet, By Mouth, Daily, # 90 tablet, Refills 1, Maintenance, 08/25/22 11:40:00 EST, Route to Pharmacy Electronically, [facility] ST[facility] 11781, 170, cm, 08/05/22 8:05:00 EST, Height, 50, kg, 11/15/21 11:23:00 EDT, Dry Weight Start Date: 08/25/22 Status: Ordered Nicotrol Inhaler 10 mg inhalation device See Instructions, USE 6 CARTRIDGES PER DAY, # 168 Unknown, 0 Refills, Maintenance, 02/03/22 9:21:00EDT, [facility]/pharmacy #1234, 28, USE 6 CARTRIDGES PER DAY, 170, cm, 12/31/21 8:21:00 EDT, Height, 50, kg, 11/15/21 11:23:00 EDT, Dry Weight Start Date: 02/03/22 Status: Ordered oxyCODONE 10 mg oral tablet 1 tablet = 10 mg, By Mouth, Every 6 hours, PRN as needed for severe pain, # 112 tablet, 0 Refills, Maintenance, 10/14/22 7:55:00 EDT, Tablet, [facility]/pharmacy #1234, Partial fill upon patient request if the prescription is for a schedule II opioid drug. M... Start Date: 10/14/22 Stop Date: 11/11/22 Status: Ordered OxyCONTIN 10 mg oral tablet, extended release 10 mg, 1, tablet, By Mouth, Every 12 hours, # 56 tablet, Refills 0, Tot. Refills 0, Maintenance, 10/14/22 7:53:00 EDT, Route to Pharmacy Electronically, [facility]/pharmacy #1234, in addition to his IR oxycodone; [...] Team Personnel Name: Rhonda Escobedo NP Position: [facility] PCO Associate Professional Member Role: PCP Address: Address: [address], [address] [place] [address]- Name: Lisa Awad RN Position: S RN Member Role: Primary Care Nurse Name: Elly Rodriges RN Position: [facility] RN Member Role: Primary Care Nurse Care Team Related Persons Name: JONI DIOPNIFER Address: [place] [address] Name: ELDER ANDERSON Address: home [address] [place] [address] Name: MAEGAN ANDERSON Address: home [address] [place] [address]
--- OUTSIDE RECORDS SUMMARY | 2024-03-09 07:30 | XMS_ITS | Continuity of Care Document ---
Author Organization [facility] Adult Address [address] [place] [address]- Care Team Providers Care Instructor Weaving Name Role Phone Fanny TOURE, Rhonda Primary Care Physician [facility] 12/06/21 - 01/05/22 [facility] Adult [address] [place] [phone]- Allergies, Adverse Reactions, Alerts Substance Reaction Severity [...] # 8.5 each, 5 Refills, [facility], 17, INHALE 2 PUFFS EVERY 4 HOURS NEEDED FOR WHEEZING, 170, cm, 11/15/21 11:23:00 EDT, Height, 50, kg, 11/15/21 11:23:00 EDT, Dry Weight Start Date: 11/17/21 Status: Ordered amLODIPine 5 mg oral tablet 1 tablet, By Mouth, Daily, # 90 tablet, 0 Refills, [facility], 170, cm, 11/15/21 11:23:00 EDT,Height, 50, kg, [...] EVERY DAY, # 90 tablet, 1 Refills, [facility] 12862, 170, cm, 12/17/21 8:41:00 EDT, Height, 50, [...] 2 Refills, Maintenance, 09/24/21 11:18:00 EST, Cream, [facility]/pharmacy #1234, Partial fill upon [...] Acute 01/19/22 17:07:00 EDT, 12/20/21 17:07:00 EDT, [facility]/pharmacy #1234, Partial fill upon patient request if the prescription is for a schedule II opioid drug., 2... Start Date: 12/20/21 Stop Date: 01/19/22 Status: Ordered lisinopril 10 mg oral tablet 1, tablet, By Mouth, Daily, # 30 tablet, Refills 1, Route to Pharmacy Electronically, [facility] STORE 35828, 170, cm, 12/05/21 10:11:00 EDT, Height, 50, kg, 11/15/21 11:23:00 EDT, Dry Weight Start Date: 12/13/21 Status: Ordered lisinopril 40 mg oral tablet See Instructions, TAKE 1 TABLET BY MOUTH EVERY DAY, # 90 tablet, 1 Refills, [facility] STORE 75850, 170, cm, 12/17/21 8:41:00 EDT, Height, 50, kg, 11/15/21 11:23:00 EDT, Dry Weight Start Date: 12/17/21 Status: Ordered Nicotrol Inhaler 10 mg inhalation device See Instructions, use 6 cartridges per day, # 84 capsule, 0 Refills, Maintenance, 04/15/21 10:30:00EDT, [facility]/pharmacy #1234, Partial fill upon patient request if the prescription is for a schedule IIopioid drug., use 6 cartridges per day, 170, cm, 09... Start Date: 04/15/21 Status: Ordered oxyCODONE 10 mg oral tablet 1 tablet = 10 mg, By Mouth, Every 6 hours, PRN as needed for severe pain, # 120 tablet, 0 Refills, Maintenance, 12/17/21 10:05:00 EDT, Tablet, [facility]/pharmacy #1234, Partial fill upon patient request ifthe prescription is for a schedule II opioid drug.... Start Date: 12/17/21 Stop Date: 01/16/22 Status: Ordered OxyCONTIN 10 mg oral tablet, extended release 10 mg, 1, tablet, By Mouth, Every 12 hours, # 56 tablet, Refills 0, Tot. Refills 0, Maintenance, 12/13/21 10:46:00 EDT, Route to Pharmacy Electronically, [facility]/pharmacy #[id number], in addition to his IR oxycodone, 170, [...]
--- OUTSIDE RECORDS SUMMARY | 2024-03-09 07:30 | XMS_ITS | Continuity of Care Document ---
Author Organization [facility] Adult Address [address] [place] [address]- Care Team Providers Care Risk And Insurance Manager Name Role Phone Fanny EGG PROCESSING SUPERVISOR, Rhonda Primary Care Physician [facility]s): 02/13/22 - 03/15/22 [facility] Adult [address] [place] [phone]- Allergies, Adverse Reactions, Alerts Substance Reaction Severity [...] 8.5 each, 5 Refills, 02/05/22 13:07:00 EDT, [facility]/pharmacy #1234, 17, 2 puffs Inhalation Every 4 hours,PRN: NEEDED FOR WHEEZING, 170,cm, 12/31/21 8:21:00 EDT, Height, 50, kg, 11/15/21... Start Date: 02/05/22 Status: Ordered amLODIPine 5 mg oral tablet 1 tablet, By Mouth, Daily, # 90 tablet, 0 Refills, [facility] ST[facility] 42721, 170, cm, 11/15/21 11:23:00 EDT,Height, 50, kg, 11/15/21 11:23:00 EDT, Dry Weight Start Date: 11/17/21 Status: Ordered Anusol-HC 2.5% cream with applicator 1 application, Rectally, 2 times a day, # 30 Gm, 1 Refills, Maintenance, 09/24/21 13:25:00 EST, Cream, [facility]/pharmacy #1234, Partial fill upon patient request if the prescription is for a schedule II opioid drug., 1 application Rectally 2 times a day, 1... Start Date: 09/24/21 Status: Ordered Anusol-HC 2.5% cream with applicator 1 application, Rectally, 2 times a day, # 30 Gm, 1 Refills, Maintenance, 06/27/21 14:24:00 EST, Cream, [facility]/pharmacy #1234, Partial fill upon patient request if the prescription is for a schedule II opioid drug., 1 application Rectally 2 times a day, 1... Start Date: 06/27/21 Status: Ordered atorvastatin 20 mg oral tablet 1 tablet = 20 mg, By Mouth, Daily, # 30 tablet, 5 Refills, Maintenance, 11/17/21 19:20:00 EDT, Tablet, [facility]/pharmacy #1234, Partial fill upon patient request if the prescription is for a schedule II opioid drug., 170, cm, 11/15/21 11:23:00 EDT, Height,... Start Date: 11/17/21 Status: Ordered atorvastatin 20 mg oral tablet See Instructions, TAKE 1 TABLET BY MOUTH EVERY DAY, # 90 tablet, 1 Refills, [facility] 31517, 170, cm, 12/17/21 8:41:00 EDT, Height, 50, [...] Refills, Maintenance, 09/24/21 11:18:00 EST, Cream, [facility]/pharmacy #1234, Partial fill upon patient request if the prescription is for a schedule II opioid drug., 1 application Topically 3 times a day,... Start Date: 09/24/21 Status: Ordered hydrocortisone topical 25 mg suppository 1 supp = 25 mg, Rectally, 2 times a day, # 28 supp, 0 Refills, Maintenance, 10/02/21 13:05:00 EDT, Suppository, [facility]/pharmacy #1234, Partial fill upon patient request if the prescription is for a schedule II opioid drug., 170, cm, 10/02/21 10:36:00 EDT... Start Date: 10/02/21 Stop Date: 10/16/21 Status: Ordered ipratropium nasal 21 mcg/inh spray See Instructions, INSTILL 2 SPRAYS INTO EACH NOSTRIL 3 TIMES A DAY NEEDED FOR CONGESTION, # 30 Unknown, 3 Refills, [facility] 66152, 30, INSTILL 2 SPRAYS INTO EACH NOSTRIL 3 TIMES A DAY NEEDED FOR CONGESTION, 170, cm, 12/31/21 8:21:00 EDT, Height... Start Date: 03/03/22 Status: Ordered lisinopril 10 mg oral tablet 1, tablet, By Mouth, Daily, # 90 tablet, Refills 1, Tot. Refills 1, Maintenance, 02/16/22 16:25:00 EDT, Route to Pharmacy Electronically, [facility]/pharmacy #1234, 170, cm, 12/31/21 8:21:00 EDT, Height, 50, kg, 11/15/21 11:23:00 EDT, Dry Weight Start Date: 02/16/22 Status: Ordered Nicotrol Inhaler 10 mg inhalation device See Instructions, USE 6 CARTRIDGES PER DAY, # 168 Unknown, 0 Refills, Maintenance, 02/03/22 9:21:00EDT, [facility]/pharmacy #1234, 28, USE 6 CARTRIDGES PER DAY, 170, cm, 12/31/21 8:21:00 EDT, Height, 50, kg, 11/15/21 11:23:00 EDT, Dry Weight Start Date: 02/03/22 Status: Ordered oxyCODONE 10 mg oral tablet 1 tablet = 10 mg, By Mouth, Every 6 hours, PRN as needed for severe pain, fill on 03/07/22, # 112 tablet, 0 Refills, Maintenance, 03/06/22 17:26:00 EDT, Tablet, [facility]/pharmacy #1234, Partial fill upon patient request if the prescription is for a schedule... Start Date: 03/06/22 Stop Date: 04/03/22 Status: Ordered OxyCONTIN 10 mg oral tablet, extended release 10 mg, 1, tablet, By Mouth, Every 12 hours, fill on 03/07/22, # 38 tablet, Refills 0, Tot. Refills 0, Maintenance, 03/06/22 17:26:00 EDT, Route to Pharmacy Electronically, [facility]/pharmacy #1234, in addition to his IR oxycodone, 170, cm, 12/31/21 8:21:00 E... Start Date: 03/06/22 Stop Date: 03/25/22 Status: Ordered Problem List Condition Effective Dates [...] Team Personnel Name: Rhonda Escobedo NP Address: [address] [place] [address], 3rd [address] [place], [place] [address]
--- OUTSIDE RECORDS SUMMARY | 2024-03-09 07:30 | XMS_ITS | Continuity of Care Document ---
Author Organization [facility] Adult Address [address] [place] [address]- Care Team Providers Care Seed Cleaner Operator Name Role Phone Fanny TOURE, Rhonda Primary Care Physician [facility]s): 03/27/23 - 04/26/23 [facility] Adult [address] [place] [address]- Allergies, Adverse Reactions, Alerts Substance Reaction Severity [...] tablet, 1 Refills, Maintenance, 12/04/22 8:21:00 EDT, [facility]/pharmacy #1972, 170, cm, 08/05/22 8:05:00 EST, Height, 50, kg, 11/15/21 11:23:00 EDT, Dry Weight Start Date: 12/04/22 Status: Ordered Anusol-HC 2.5% cream with applicator 1 application, Rectally, 2 times a day, # 30 Gm, 1 Refills, Maintenance, 09/24/21 13:25:00 EST, Cream, [facility]/pharmacy #1234, [...] Stop 06/13/23 11:17:00 EST, 12/15/22 11:17:00 EDT, [facility]/pharmacy #1972, 170, cm, 08/05/22 8:05:00 EST, Height, 50, kg,11/15/21 11:23:00 EDT, Dry Weight Start Date: 12/15/22 Stop Date: 06/13/23 Status: Ordered atorvastatin 20 mg oral tablet See Instructions, TAKE 1 TABLET BY MOUTH EVERY DAY, # 90 tablet, 1 Refills, Maintenance, 08/05/22 7:46:00 EST, [facility], 170, cm, 08/05/22 7:32:00 EST, Height, 50, [...] 0 Refills, Maintenance, 10/02/21 13:05:00 EDT, Suppository, [facility]/pharmacy #1234, Partial fill upon patient request if the prescription is for a schedule II opioid drug., 170, cm, 10/02/21 10:36:00 EDT... Start Date: 10/02/21 Stop Date: 10/16/21 Status: Ordered ipratropium nasal 21 mcg/inh spray See Instructions, INSTILL 2 SPRAYS INTO EACH NOSTRIL 3 TIMES A DAY NEEDED FOR CONGESTION, # 60 Unknown, 5 Refills, Maintenance, 12/11/22 19:25:00 EDT, [facility] STORE 70080, 90, INSTILL 2 SPRAYS INTO EACH NOSTRIL 3 TIMES A DAY NEEDED FOR CONGESTION, 1... Start Date: 12/11/22 Status: Ordered lisinopril 10 mg oral tablet See Instructions, TAKE 1 TABLET BY MOUTH EVERY DAY, # 90 tablet, Refills 0, Maintenance, 02/06/23 8:55:00 EDT, Instructions Replace Required Details, Route to Pharmacy Electronically, [facility] STORE 52772, 170, cm, 08/05/22 8:05:00 EST, Height, 50, kg, ... Start Date: 02/06/23 Status: Ordered lisinopril 10 mg oral tablet 1, tablet, By Mouth, Daily, # 90 tablet, Refills 0, Tot. Refills 0, Maintenance, 02/05/23 15:07:00 EDT, Route to Pharmacy Electronically, [facility]/pharmacy #1972, 170, cm, 08/05/22 8:05:00 EST, Height, 50, kg, 11/15/21 11:23:00 EDT, Dry Weight Start Date: 02/05/23 Status: Ordered Nicotrol Inhaler 10 mg inhalation device See Instructions, USE 6 CARTRIDGES PER DAY, # 168 Unknown, 0 Refills, Maintenance, 02/03/22 9:21:00EDT, [facility]/pharmacy #1234, 28, USE 6 CARTRIDGES PER DAY, 170, cm, 12/31/21 8:21:00 EDT, Height, 50, kg, 11/15/21 11:23:00 EDT, Dry Weight Start Date: 02/03/22 Status: Ordered oxyCODONE 5 mg oral tablet 10 mg, 2, tablet, By Mouth, Every 6 hours, PRN, STOPBOARD ASSEMBLER checked. Fill on 04/30/23, # 224 tablet, Refills 0, Tot. Refills 0, Maintenance, as needed for pain, 04/24/23 8:29:00 EDT, Route to Pharmacy Electronically, [facility]/pharmacy #1972, Partial fill upon chandrika... Start Date: 04/24/23 Stop Date: 05/22/23 Status: Ordered OxyCONTIN 10 mg oral tablet, extended release 10 mg, 1, tablet, By Mouth, Every 12 hours, STOPBOARD ASSEMBLER checked. Fill on 04/30/23, # 56 tablet, Refills 0, Tot. Refills 0, Maintenance, 04/24/23 8:29:00 EDT, Route to Pharmacy Electronically, [facility]/pharmacy #1972, in addition to his IR oxycodone, 170, cm, 02/06... Start Date: 04/24/23 Stop Date: 05/22/23 Status: Ordered Ventolin HFA 108 mcg/inh inhalation aerosol with adapter See Instructions, INHALE 1 PUFF 4 TIMES A DAY NEEDED FOR COUGH, # 18 each, 5 Refills, Maintenance, 12/11/22 19:25:00 EDT, [facility], 170, cm, 08/05/22 8:05:00 EST, Height, 50, [...] Team Personnel Name: Rhonda Escobedo NP Position: [facility] PCO Associate Professional Member Role: PCP Address: Address: [address], 3rd Floor [facility] [place] [address]- Name: Lisa Awad RN Position: S RN Member Role: Primary Care Nurse Name: Elly Rodriges RN Position: [facility] SN RN Member Role: Primary Care Nurse Care Team Related Persons Name: JADON CHARLINE Address: [place] [address] Name: ELDER ANDERSON Address: home [address] [place] [address] Name: MAEGAN ANDERSON Address: home [address] [place] [address]
--- OUTSIDE RECORDS SUMMARY | 2024-03-09 07:30 | XMS_ITS | Continuity of Care Document ---
Author Organization [facility] Adult Address [address] [place] [address]- Care Team Providers Care Geneticist Name Role Phone Tonja TOURE, Jeannette Olivera Primary Care Physicia n Encounter [facility] Date(s): 06/27/21 - 07/04/21 [facility] Adult [address] [place] [phone]- [place] Encounter Diagnosis Right hip pain(Discharge Diagnosis) - 06/27/21 Right knee pain(Discharge Diagnosis) - 06/27/21 Hemorrhoid(Discharge Diagnosis) - 06/27/21 Moderate major depression, single episode(Discharge Diagnosis) - 06/27/21 Hypertension(Discharge Diagnosis) - 06/27/21 Attending Physician: Douglas Parker MD Allergies, Adverse [...] 5 Refills, Maintenance, 07/03/21 10:04:00 EST, Tablet, [facility]/pharmacy #1234, Partial fill upon patient [...] Effective Dates Health Status Clinical Service Informant Right hip pain Discharge Diagnosis 06/27/21 Right knee pain Discharge Diagnosis 06/27/21 Hemorrhoid Discharge Diagnosis 06/27/21 Moderate major depression, single episode Discharge Diagnosis 06/27/21 Hypertension Discharge Diagnosis 06/27/21 Vital Signs Most recent to oldest [Reference Range]: 1 2 3 Height 170 cm (06/27/21 2:20 PM) 170 cm (06/27/21 1:40 PM) 170 cm (06/27/21 1:34 PM) Weight 57.7 kg (06/27/21 1:34 PM) Oxygen Saturation [94-100 %] 98 % (06/27/21 1:34 PM) Pulse Rate [55-90 bpm] 72 bpm (06/27/21 1:34 PM) Body Mass Index [18.5-24.99] 19.97 (06/27/21 1:34 PM) Blood Pressure [90-138/55-84 mm Hg] 136/62mm Hg (06/27/21 2:20 PM) 156/67mm Hg *H* (06/27/21 1:40 PM) 171/72mm Hg *H* (06/27/21 1:34 PM) Mode of Delivery (Oxygen) Room air (06/27/21 1:34 PM) Blood pressure sites Arm, left (06/27/21 2:20 PM) Arm, left (06/27/21 1:40 PM) Arm, left (06/27/21 1:34 PM) Weight Obtained Via Standing scale (06/27/21 1:34 PM) Social History Social History Type Response Tobacco Other: Smokes about 12 cigarettes daily. Prior to this, smoking about 1 PPD for 35 years.. Sex
--- OUTSIDE RECORDS SUMMARY | 2024-03-09 07:30 | XMS_ITS | Continuity of Care Document ---
Author Organization [facility] Adult Address [address] [place] [address]- Care Team Providers Care Customer Insight Analyst Name Role Phone Tonja TOURE, Jeannette Olivera Primary Care Physicia n [facility] Date[facility]): 03/[facility]/21 - 04/19/21 [facility] Adult [address] [place] [address]- Allergies, Adverse Reactions, Alerts Substance Reaction Severity [...] 04/08/21 7:58:00 EDT, Route to Pharmacy Electronically, [facility]/pharmacy #[id number], Partial fill upon patient request if the prescription is for a schedule II opioid drug.... Start Date: 04/08/21 Status: Ordered Nicotrol Inhaler 10 mg inhalation device See Instructions, use 6 cartridges per day, # 84 capsule, 0 Refills, Maintenance, 04/15/21 10:30:00EDT, [facility]/pharmacy #1234, Partial fill upon patient request if the prescription is for a schedule IIopioid drug., use 6 cartridges per day, 170, cm, 09... Start Date: 04/15/21 Status: Ordered omeprazole 20 mg oral delayed release tablet 1 tablet = 20 mg, By Mouth, Daily, # 90 tablet, 1 Refills, Maintenance, 08/23/20 13:22:00 EST, CR Tablet, [facility]/pharmacy #1234, Partial fill upon patient request if the prescription is for a schedule II opioid drug., 170, cm, 08/21/20 6:19:00 EST, Heigh... Start Date: 08/23/20 Status: Ordered ProAir HFA 90 mcg/inh inhalation aerosol 2 puffs, Inhalation, Every 4 hours, PRN NEEDED FOR WHEEZE, # 1 each, 5 Refills, Maintenance, 03/01/21 12:03:00 EDT, [facility]/pharmacy #1234, 2 puffs Inhalation Every 4 [...]
--- OUTSIDE RECORDS SUMMARY | 2024-03-09 07:30 | XMS_ITS | Continuity of Care Document ---
Author Organization [facility] Adult Address [address] [place] [address]- Care Team Providers Care Pin Sticker Name Role Phone Fanny TOURE, Rhonda Primary Care Physician [facility] Date[facility]s): 08/07/23 - 09/06/23 [facility] Adult [address] [place] [address]- Allergies, Adverse Reactions, Alerts Substance Reaction Severity [...] Refills, Maintenance, 05/18/23 13:33:00 EDT, [facility], 25, INHALE 1 PUFF 4 TIMES A DAY NEEDED FOR COUGH, 170, cm, 05/05/23 12:54:00 EDT, Height, 50, kg, 11/15/21 11:2... Start Date: 05/18/23 Status: Ordered amLODIPine 5 mg oral tablet 1 tablet, By Mouth, Daily, # 90 tablet, 1 Refills, Maintenance, 06/09/23 9:12:00 EST, [facility], 170, cm, 06/03/23 14:00:00 EST, Height, 51, kg, 06/03/23 14:00:00 EST, Dry Weight Start Date: 06/09/23 Status: Ordered atorvastatin 20 mg oral tablet 1 tablet, By Mouth, Daily, # 90 tablet, 1 Refills, Maintenance, 07/29/23 9:02:00 EST, [facility], 170, cm, 06/23/23 10:13:00 EST, Height, 51, kg, 06/03/23 14:00:00 EST, Dry Weight Start Date: 07/29/23 Status: Ordered celecoxib 200 mg oral capsule 1 capsule = 200 mg, By Mouth, 2 times a day, # 14 capsule, 0 Refills, Maintenance, 06/04/23 13:40:00 EST, Capsule, [facility], Partial fill upon [...] 06/04/23 13:40:00 EST, Route to Pharmacy Electronically, [facility], Partial fill uponpatient request if the [...] Unknown, 5 Refills, Maintenance, 12/11/22 19:25:00 EDT, [facility] STORE 48124, 90, INSTILL 2 SPRAYS INTO EACH NOSTRIL 3 TIMES A DAY NEEDED FOR CONGESTION, 1... Start Date: 12/11/22 Status: Ordered metoprolol 25 mg oral tablet 12.5 mg, 0.5, tablet, By Mouth, Every 12 hours, # 30 tablet, Refills 0, Tot. Refills 0, Maintenance, 06/04/23 13:43:00 EST, Route to Pharmacy Electronically, [facility], Partial fill upon patient request if the prescription is for a sche... Start Date: 06/04/23 Stop Date: 07/04/23 Status: Ordered nicotine 14 mg/24 hr transdermal film, extended release 1 patch, Topically, Daily, # 28 patch, 0 Refills, Maintenance, 07/27/23 14:23:00 EST, [facility], 28, APPLY 1 PATCH TOPICALLY DAILY, 170, cm, 06/23/23 10:13:00 EST, Height, 51, kg, 06/03/23 14:00:00 EST, Dry Weight Start Date: 07/27/23 Status: Ordered oxyCODONE 5 mg oral tablet 10 mg, 2, tablet, By Mouth, Every 6 hours, PRN, fill on 08/18/23, # 224 tablet, Refills 0, Tot. Refills 0, Maintenance, as needed for pain, 08/18/23 9:46:00 EST, Route to Pharmacy Electronically, [facility]/pharmacy #[id number], Partial fill upon patient request if... Start Date: 08/18/23 Stop Date: 09/15/23 Status: Ordered OxyCONTIN 20 mg oral tablet, extended release 20 mg, 1, tablet, By Mouth, Every 12 hours, metal base blocker chacked fill 08/18/23, # 56 tablet, Refills 0, Tot. Refills 0, Maintenance, 08/18/23 9:46:00 EST, Route to Pharmacy Electronically, [facility]/pharmacy #1972, Partial fill upon patient [...] Confirmed Active Tobacco use disorder Confirmed Active 37558 r lung wedge resection Social History Social [...] Associate Professional Member Role: PCP Address: Address: [address] [place] [address], [address] [place] [address]- Name: Yue Delgado RN Position: S RN [...] Persons Name: JADON CHARLINE Address: [place] [address] Name: ELDER ANDERSON Address: home [address] [place] [address] Name: MAEGAN ANDERSON Address: home [address] [place] [address]
--- OUTSIDE RECORDS SUMMARY | 2024-03-09 07:30 | XMS_ITS | Continuity of Care Document ---
Author Organization [facility] Adult Address [address] [place] [address]- Care Team Providers Care Health Data Analyst Name Role Phone Fanny TOURE, Rhonda Primary Care Physician [facility] Date[facility]s): 08/18/23 - 09/17/23 [facility] Adult [address] [place] [address]- Allergies, Adverse Reactions, Alerts Substance Reaction Severity [...] Refills, Maintenance, 05/18/23 13:33:00 EDT, [facility], 25, INHALE 1 PUFF 4 TIMES A DAY NEEDED FOR COUGH, 170, cm, 05/05/23 12:54:00 EDT, Height, 50, kg, 11/15/21 11:2... Start Date: 05/18/23 Status: Ordered amLODIPine 5 mg oral tablet 1 tablet, By Mouth, Daily, # 90 tablet, 1 Refills, Maintenance, 06/09/23 9:12:00 EST, [facility], 170, cm, 06/03/23 14:00:00 EST, Height, 51, kg, 06/03/23 14:00:00 EST, Dry Weight Start Date: 06/09/23 Status: Ordered atorvastatin 20 mg oral tablet 1 tablet, By Mouth, Daily, # 90 tablet, 1 Refills, Maintenance, 07/29/23 9:02:00 EST, [facility], 170, cm, 06/23/23 10:13:00 EST, Height, 51, kg, 06/03/23 14:00:00 EST, Dry Weight Start Date: 07/29/23 Status: Ordered celecoxib 200 mg oral capsule 1 capsule = 200 mg, By Mouth, 2 times a day, # 14 capsule, 0 Refills, Maintenance, 06/04/23 13:40:00 EST, Capsule, [facility], Partial fill upon patient [...] 06/04/23 13:40:00 EST, Route to Pharmacy Electronically, [facility], Partial fill uponpatient request if the [...] Unknown, 5 Refills, Maintenance, 12/11/22 19:25:00 EDT, [email or web address], 90, INSTILL 2 SPRAYS INTO EACH NOSTRIL 3 TIMES A DAY NEEDED FOR CONGESTION, 1... Start Date: 12/11/22 Status: Ordered lisinopril 10 mg oral tablet 1, tablet, By Mouth, Daily, # 90 tablet, Refills 1, Maintenance, 09/07/23 9:20:00 EST, Route to Pharmacy Electronically, [email or web address] 04148, 170, cm, 07/29/23 14:04:00 EST, Height, 51, kg, 06/03/23 14:00:00 EST, Dry Weight Start Date: 09/07/23 Status: Ordered metoprolol 25 mg oral tablet 12.5 mg, 0.5, tablet, By Mouth, Every 12 hours, # 30 tablet, Refills 0, Tot. Refills 0, Maintenance, 06/04/23 13:43:00 EST, Route to Pharmacy Electronically, [facility], Partial fill upon patient request if the prescription is for a sche... Start Date: 06/04/23 Stop Date: 07/04/23 Status: Ordered nicotine 14 mg/24 hr transdermal film, extended release 1 patch, Topically, Daily, # 28 patch, 0 Refills, Maintenance, 07/27/23 14:23:00 EST, [facility] STORE 37022, 28, APPLY 1 PATCH TOPICALLY DAILY, 170, cm, 06/23/23 10:13:00 EST, Height, 51, kg, 06/03/23 14:00:00 EST, Dry Weight Start Date: 07/27/23 Status: Ordered oxyCODONE 10 mg oral tablet 1 tablet = 10 mg, By Mouth, Every 6 hours, PRN as needed for pain, shuffle board operator assessed fill 09/15, # 112 tablet, 0 Refills, Maintenance, 09/14/23 20:05:00 EST, Tablet, [facility]/pharmacy #1972, Partial fill upon patient request if the prescription is for a schedule... Start Date: 09/14/23 Stop Date: 10/12/23 Status: Ordered OxyCONTIN 20 mg oral tablet, extended release 20 mg, 1, tablet, By Mouth, Every 12 hours, shuffle board operator chacked fill 09/15/23, # 56 tablet, Refills 0, Tot. Refills 0, Maintenance, 09/14/23 20:07:00 EST, Route to Pharmacy Electronically, [facility]/pharmacy #[id number],Partial fill upon patient request [...] Confirmed Active Tobacco use disorder Confirmed Active 22479 r lung wedge resection Social History Social History Type Response Smoking Status Former smoker, quit more than 30 days ago; Total pack years: 45; entered on: 09/17/23 Sex Patient Care team information Care Team Personnel Name: Aurelia Yang RN Position: [facility] RN Member Role: Primary Care Nurse Name: Rhonda Escobedo NP Position: [facility] PCO Associate Professional Member Role: PCP Address: Address: [address] [place] [address], [address] [place], [place] [address] Name: Yue Delgado RN Position: [facility] RN Member Role: Primary Care Nurse Name: Debo Gagnon Position: S RN Member Role: Primary Care Nurse Name: Lisa Awad RN Position: S RN Member Role: Primary Care Nurse Name: Elly Rodriges RN Position: [facility] SN RN Member Role: Primary Care Nurse Name: Nilda Pop RN Position: S RN Member Role: Primary Care Nurse Care Team Related Persons Name: CHARLINE DIOP Address: [place] [address] Name: ELDER ANDERSON Address: home [address] [place] [address] Name: MAEGAN ANDERSON Address: home [address] [place] [address]
--- OUTSIDE RECORDS SUMMARY | 2024-03-09 07:30 | XMS_ITS | Continuity of Care Document ---
Author Organization [facility] Adult Address [address] [place] [address]- Care Team Providers Care Replanter Name Role Phone Fanny TOURE, Rhonda Primary Care Physician [facility]s): 08/10/23 - 09/09/23 [facility] Adult [address] [place] [address]- Allergies, Adverse Reactions, Alerts Substance Reaction Severity [...] Refills, Maintenance, 05/18/23 13:33:00 EDT, [facility], 25, INHALE 1 PUFF 4 TIMES A DAY NEEDED FOR COUGH, 170, cm, 05/05/23 12:54:00 EDT, Height, 50, kg, 11/15/21 11:2... Start Date: 05/18/23 Status: Ordered amLODIPine 5 mg oral tablet 1 tablet, By Mouth, Daily, # 90 tablet, 1 Refills, Maintenance, 06/09/23 9:12:00 EST, [facility], 170, cm, 06/03/23 14:00:00 EST, Height, 51, kg, 06/03/23 14:00:00 EST, Dry Weight Start Date: 06/09/23 Status: Ordered atorvastatin 20 mg oral tablet 1 tablet, By Mouth, Daily, # 90 tablet, 1 Refills, Maintenance, 07/29/23 9:02:00 EST, [facility], 170, cm, 06/23/23 10:13:00 EST, Height, 51, kg, 06/03/23 14:00:00 EST, Dry Weight Start Date: 07/29/23 Status: Ordered celecoxib 200 mg oral capsule 1 capsule = 200 mg, By Mouth, 2 times a day, # 14 capsule, 0 Refills, Maintenance, 06/04/23 13:40:00 EST, Capsule, [facility], Partial fill upon patient request if [...] 06/04/23 13:40:00 EST, Route to Pharmacy Electronically, [facility], Partial fill uponpatient request if [...] Unknown, 5 Refills, Maintenance, 12/11/22 19:25:00 EDT, [facility], 90, INSTILL 2 SPRAYS INTO EACH NOSTRIL 3 TIMES A DAY NEEDED FOR CONGESTION, 1... Start Date: 12/11/22 Status: Ordered lisinopril 10 mg oral tablet 1, tablet, By Mouth, Daily, # 90 tablet, Refills 1, Maintenance, 09/07/23 9:20:00 EST, Route to Pharmacy Electronically, [facility] 98728, 170, cm, 07/29/23 14:04:00 EST, Height, 51, kg, 06/03/23 14:00:00 EST, Dry Weight Start Date: 09/07/23 Status: Ordered metoprolol 25 mg oral tablet 12.5 mg, 0.5, tablet, By Mouth, Every 12 hours, # 30 tablet, Refills 0, Tot. Refills 0, Maintenance, 06/04/23 13:43:00 EST, Route to Pharmacy Electronically, [facility], Partial fill upon patient request if the prescription is for a sche... Start Date: 06/04/23 Stop Date: 07/04/23 Status: Ordered nicotine 14 mg/24 hr transdermal film, extended release 1 patch, Topically, Daily, # 28 patch, 0 Refills, Maintenance, 07/27/23 14:23:00 EST, [facility] STORE 83239, 28, APPLY 1 PATCH TOPICALLY DAILY, 170, cm, 06/23/23 10:13:00 EST, Height, 51, kg, 06/03/23 14:00:00 EST, Dry Weight Start Date: 07/27/23 Status: Ordered oxyCODONE 5 mg oral tablet 10 mg, 2, tablet, By Mouth, Every 6 hours, PRN, fill on 08/18/23, # 224 tablet, Refills 0, Tot. Refills 0, Maintenance, as needed for pain, 08/18/23 9:46:00 EST, Route to Pharmacy Electronically, [facility]/pharmacy #[id number], Partial fill upon patient request if... Start Date: 08/18/23 Stop Date: 09/15/23 Status: Ordered OxyCONTIN 20 mg oral tablet, extended release 20 mg, 1, tablet, By Mouth, Every 12 hours, outdoor adventure guides chacked fill 08/18/23, # 56 tablet, Refills 0, Tot. Refills 0, Maintenance, 08/18/23 9:46:00 EST, [facility] to [facility], [id number], Partial fill upon patient request if the prescriptio... Start Date: 08/18/23 Stop Date: 09/15/23 Status: Ordered Thaddeus See Instructions, # 1 [...] Confirmed Active Tobacco use disorder Confirmed Active 96071 r lung wedge resection Social History Social History Type Response Tobacco Use: 4 or less cigar ettes(less than 1/4 pack)/day in last 30 days. Other: 2-3 cig/d x 40 years; was at 0.5 pp/d. Sex Patient Care team information Care Team Personnel Name: Aurelia Yang RN Position: [facility] RN Member Role: Primary Care Nurse Name: Rhonda Escobedo NP Position: [facility] PCO Associate Professional Member Role: PCP Address: Address: [address] [place] [address], [address] [place], [place] [address] Name: Yue Delgado RN Position: S RN Member Role: Primary Care Nurse Name: Debo Gagnon Position: S RN Member Role: Primary Care Nurse Name: Lisa Awad RN Position: S RN Member Role: Primary Care Nurse Name: Elly Rodriges RN Position: [facility] RN Member Role: Primary Care Nurse Name: Nilda Pop RN Position: S RN Member Role: Primary Care Nurse Care Team Related Persons Name: DIOP CHARLINE Address: [place] [address] Name: ELDER ANDERSON Address: home [address] [place] [address] Name: MAEGAN ANDERSON Address: home [address] [place] [address]
--- OUTSIDE RECORDS SUMMARY | 2024-03-09 07:30 | XMS_ITS | Continuity of Care Document ---
Author Organization [facility] Adult Address [address] [place] [address]- Care Team Providers Care Street Supervisor Name Role Phone Tonja TOURE, Jeannette Olivera Primary Care Physicia n Encounter [facility] Date(s): 06/25/21 - 07/25/21 [facility] Adult [address] [place] [address]- Allergies, Adverse Reactions, Alerts Substance Reaction Severity [...] 1 Refills, Maintenance, 06/27/21 14:24:00 EST, Cream, [facility]/pharmacy #1234, Partial fill upon patient request if the prescription is for a schedule II opioid drug., 1 application Rectally 2 times a day, 1... Start Date: 06/27/21 Status: Ordered Anusol-HC 2.5% cream with applicator 1 application, Rectally, 2 times a day, # 30 Gm, 1 Refills, Maintenance, 06/27/21 14:24:00 EST, Cream, [facility]/pharmacy #1234, Partial fill upon patient request if the prescription is for a schedule II opioid drug., 1 application Rectally 2 times a day, 1... Start Date: 06/27/21 Status: Ordered atorvastatin 20 mg oral tablet 1 tablet = 20 mg, By Mouth, Daily, # 30 tablet, 5 Refills, Maintenance, 06/19/21 8:09:00 EST, Tablet, [facility]/pharmacy #1234, Partial fill upon patient request if [...] 5 Refills, Maintenance, 07/03/21 10:04:00 EST, Tablet, [facility]/pharmacy #1234, Partial fill upon patient request if [...]
--- OUTSIDE RECORDS SUMMARY | 2024-03-09 07:30 | XMS_ITS | Continuity of Care Document ---
Author Organization [facility] Adult Address [address] [place] [address]- Care Team Providers Care Servicer Travel Trailers Name Role Phone Fanny TOURE, Rhonda Primary Care Physician [facility] Date[facility]s): 12/11/22 - 01/10/23 [facility] Adult [address] [place] [address]- Allergies, Adverse Reactions, Alerts Substance Reaction Severity [...] tablet, 1 Refills, Maintenance, 12/04/22 8:21:00 EDT, [facility]/pharmacy #1972, 170, cm, 08/05/22 8:05:00 EST, Height, 50, kg, 11/15/21 11:23:00 EDT, Dry Weight Start Date: 12/04/22 Status: Ordered Anusol-HC 2.5% cream with applicator 1 application, Rectally, 2 times a day, # 30 Gm, 1 Refills, Maintenance, 09/24/21 13:25:00 EST, Cream, [facility]/pharmacy #1234, Partial fill upon patient request if the prescription is for a schedule II opioid drug., 1 application Rectally 2 times a day, 1... Start Date: 09/24/21 Status: Ordered Anusol-HC 2.5% cream with applicator 1 application, Rectally, 2 times a day, # 30 Gm, 1 Refills, Maintenance, 06/27/21 14:24:00 EST, Cream, [facility]/pharmacy #1234, Partial fill upon patient request if the prescription is for a schedule II opioid drug., 1 application Rectally 2 times a day, 1... Start Date: 06/27/21 Status: Ordered atorvastatin 20 mg oral tablet 1 tablet = 20 mg, By Mouth, Daily, for 90 days, # 90 tablet, 1 Refills, Physician Stop 06/13/23 11:17:00 EST, 12/15/22 11:17:00 EDT, [facility]/pharmacy #1972, 170, cm, 08/05/22 8:05:00 EST, Height, 50, kg,11/15/21 11:23:00 EDT, Dry Weight Start Date: 12/15/22 Stop Date: 06/13/23 Status: Ordered atorvastatin 20 mg oral tablet See Instructions, TAKE 1 TABLET BY MOUTH EVERY DAY, # 90 tablet, 1 Refills, Maintenance, 08/05/22 7:46:00 EST, [facility], 170, cm, 08/05/22 7:32:00 EST, Height, 50, kg, 11/15/21 11:23:00 EDT, Dry Weight Start Date: 08/05/22 Status: Ordered atorvastatin 20 mg oral tablet 1 tablet = 20 mg, By Mouth, Daily, # 30 tablet, 5 Refills, Maintenance, 11/17/21 19:20:00 EDT, Tablet, [facility]/pharmacy #1234, Partial [...] Refills, Maintenance, 12/11/22 19:25:00 EDT, [facility] STORE 12030, 90, INSTILL 2 SPRAYS INTO EACH NOSTRIL 3 TIMES A DAY NEEDED FOR CONGESTION, 1... Start Date: 12/11/22 Status: Ordered lisinopril 10 mg oral tablet 1, tablet, By Mouth, Daily, # 90 tablet, Refills 1, Maintenance, 08/25/22 11:40:00 EST, Route to Pharmacy Electronically, [facility] ST[facility] 47263, 170, cm, 08/05/22 8:05:00 EST, Height, 50, kg, 11/15/21 11:23:00 EDT, Dry Weight Start Date: 08/25/22 Status: Ordered Nicotrol Inhaler 10 mg inhalation device See Instructions, USE 6 CARTRIDGES PER DAY, # 168 Unknown, 0 Refills, Maintenance, 02/03/22 9:21:00EDT, [facility]/pharmacy #1234, 28, USE 6 CARTRIDGES PER DAY, [...] 01/06/23 6:56:00 EDT, Route to Pharmacy Electronically, [facility]/pharm... Start Date: 01/06/23 Stop Date: 02/03/23 Status: Ordered OxyCONTIN 10 mg oral tablet, extended release 10 mg, 1, tablet, By Mouth, Every 12 hours, fill 01/08/23, # 56 tablet, Refills 0, Tot. Refills 0, Maintenance, 01/06/23 6:56:00 EDT, Route to Pharmacy Electronically, [facility]/pharmacy #1972, in addition to his IR oxycodone, 170, cm, 08/05/22 8:05:00 EST,... Start Date: 01/06/23 Stop Date: 02/03/23 Status: Ordered Ventolin HFA 108 mcg/inh inhalation aerosol with adapter See Instructions, INHALE 1 PUFF 4 TIMES A DAY NEEDED FOR COUGH, # 18 each, 5 Refills, Maintenance, 12/11/22 19:25:00 EDT, [facility] STORE 91023, 170, cm, 08/05/22 8:05:00 EST, Height, 50, [...] Team Personnel Name: Rhonda Escobedo NP Position: [facility] PCO Associate Professional Member Role: PCP Address: Address: [address], [address]rd [place] [address]- Name: Lisa Awad RN Position: S RN Member Role: Primary Care Nurse Name: Elly Rodriges RN Position: [facility] RN Member Role: Primary Care Nurse Care Team Related Persons Name: JONI DIOPNIFER Address: [place] [address] Name: ELDER ANDERSON Address: home [address] [place] [address] Name: MAEGAN ANDERSON Address: home [address] [place] [address]
--- OUTSIDE RECORDS SUMMARY | 2024-03-09 07:30 | XMS_ITS | Continuity of Care Document ---
Author Organization [facility] Address [address] [place] [address]- Care Team Providers Care Stewardesses Teacher Name Role Phone Fanny TOURE, Rhonda Primary Care Physician [phone] Encounter [facility] [place] Date(s): 01/01/22 - 05/01/22 [facility] [address] [place] [address] [place] [id number] Attending Physician: Mario Alberto Alonso MD Admitting Physician: Mario Alberto Alonso MD Referring Physician: Rhonda Escobedo NP Allergies, [...] 8.5 each, 5 Refills, 02/05/22 13:07:00 EDT, [facility]/pharmacy #1234, 17, 2 puffs Inhalation Every 4 hours,PRN: NEEDED FOR WHEEZING, 170,cm, 12/31/21 8:21:00 EDT, Height, 50, kg, 11/15/21... Start Date: 02/05/22 Status: Ordered amLODIPine 5 mg oral tablet 1 tablet, By Mouth, Daily, # 90 tablet, 0 Refills, Maintenance, 03/25/22 13:14:00 EDT, [facility]/pharmacy#1234, 170, cm, 12/31/21 8:21:00 EDT, Height, 50, kg, 11/15/21 11:23:00 EDT, Dry Weight Start Date: 03/25/22 Status: Ordered Anusol-HC 2.5% cream with applicator 1 application, Rectally, 2 times a day, # 30 Gm, 1 Refills, Maintenance, 09/24/21 13:25:00 EST, Cream, [facility]/pharmacy #1234, Partial fill upon patient request if the prescription is for a schedule II opioid drug., 1 application Rectally 2 times a day, 1... Start Date: 09/24/21 Status: Ordered Anusol-HC 2.5% cream with applicator 1 application, Rectally, 2 times a day, # 30 Gm, 1 Refills, Maintenance, 06/27/21 14:24:00 EST, Cream, [facility]/pharmacy #1234, Partial fill upon patient request if the prescription is for a schedule II opioid drug., 1 application Rectally 2 times a day, 1... Start Date: 06/27/21 Status: Ordered atorvastatin 20 mg oral tablet 1 tablet = 20 mg, By Mouth, Daily, # 30 tablet, 5 Refills, Maintenance, 11/17/21 19:20:00 EDT, Tablet, [facility]/pharmacy #1234, Partial fill upon patient request if the prescription is for a schedule II opioid drug., 170, cm, 11/15/21 11:23:00 EDT, Height,... Start Date: 11/17/21 Status: Ordered atorvastatin 20 mg oral tablet See Instructions, TAKE 1 TABLET BY MOUTH EVERY DAY, # 90 tablet, 1 Refills, [id number], 170, cm, 12/17/21 8:41:00 EDT, Height, 50, [...] 2 Refills, Maintenance, 09/24/21 11:18:00 EST, Cream, [facility]/pharmacy #1234, Partial fill upon patient request if the prescription is for a schedule II opioid drug., 1 application Topically 3 times a day,... Start Date: 09/24/21 Status: Ordered hydrocortisone topical 25 mg suppository 1 supp = 25 mg, Rectally, 2 times a day, # 28 supp, 0 Refills, Maintenance, 10/02/21 13:05:00 EDT, Suppository, [facility]/pharmacy #1234, Partial fill upon patient request if the prescription is for a schedule II opioid drug., 170, cm, 10/02/21 10:36:00 EDT... Start Date: 10/02/21 Stop Date: 10/16/21 Status: Ordered ipratropium nasal 21 mcg/inh spray See Instructions, INSTILL 2 SPRAYS INTO EACH NOSTRIL 3 TIMES A DAY NEEDED FOR CONGESTION, # 30 Unknown, 3 Refills, [facility], 30, INSTILL 2 SPRAYS INTO EACH NOSTRIL 3 TIMES A DAY NEEDED FOR CONGESTION, 170, cm, 12/31/21 8:21:00 EDT, Height... Start Date: 03/03/22 Status: Ordered lisinopril 10 mg oral tablet 1, tablet, By Mouth, Daily, # 90 tablet, Refills 1, Tot. Refills 1, Maintenance, 02/16/22 16:25:00 EDT, Route to Pharmacy Electronically, [facility]/pharmacy #1234, 170, cm, 12/31/21 8:21:00 EDT, Height, 50, kg, 11/15/21 11:23:00 EDT, Dry Weight Start Date: 02/16/22 Status: Ordered Nicotrol Inhaler 10 mg inhalation device See Instructions, USE 6 CARTRIDGES PER DAY, # 168 Unknown, 0 Refills, Maintenance, 02/03/22 9:21:00EDT, [facility]/pharmacy #1234, 28, USE 6 CARTRIDGES PER DAY, 170, cm, 12/31/21 8:21:00 EDT, Height, 50, kg, 11/15/21 11:23:00 EDT, Dry Weight Start Date: 02/03/22 Status: Ordered oxyCODONE 10 mg oral tablet 1 tablet = 10 mg, By Mouth, Every 6 hours, PRN as needed for severe pain, fill on 05/02/22, # 112 tablet, 0 Refills, Maintenance, 04/17/22 8:05:00 EDT, Tablet, [facility]/pharmacy #1234, Partial fill upon patient request if the prescription is for a schedule... Start Date: 04/17/22 Stop Date: 05/15/22 Status: Ordered OxyCONTIN 10 mg oral tablet, extended release 10 mg, 1, tablet, By Mouth, Every 12 hours, fill on 05/02/22, # 56 tablet, Refills 0, Tot. Refills 0, Maintenance, 04/17/22 8:05:00 EDT, Route to Pharmacy Electronically, [facility]/pharmacy #[id number], in addition to his IR oxycodone, 170, [...] Name: Rhonda Escobedo NP Address: Address: [address] [facility], 3rd Floor [place], [place] [address]
--- OUTSIDE RECORDS SUMMARY | 2024-03-09 07:30 | XMS_ITS | Continuity of Care Document ---
Author Organization [facility] Adult Address [address] [place] [address]- Care Team Providers Care Industrial Equipment Wirer Name Role Phone Fanny TOURE, Rhonda Primary Care Physician [facility] Date(s): 05/21/23 - 06/20/23 [facility] [address] [place] [address]- Allergies, Adverse Reactions, Alerts Substance Reaction Severity [...] Refills, Maintenance, 05/18/23 13:33:00 EDT, [facility], 25, INHALE 1 PUFF 4 TIMES A DAY NEEDED FOR COUGH, 170, cm, 05/05/23 12:54:00 EDT, Height, 50, kg, 11/15/21 11:2... Start Date: 05/18/23 Status: Ordered amLODIPine 5 mg oral tablet 1 tablet, By Mouth, Daily, # 90 tablet, 1 Refills, Maintenance, 06/09/23 9:12:00 EST, [facility], 170, cm, 06/03/23 14:00:00 EST, Height, 51, kg, 06/03/23 14:00:00 EST, Dry Weight Start Date: 06/09/23 Status: Ordered celecoxib 200 mg oral capsule 1 capsule = 200 mg, By Mouth, 2 times a day, # 14 capsule, 0 Refills, Maintenance, 06/04/23 13:40:00 EST, Capsule, [facility], Partial fill upon patient request if the prescription is for a schedule II opioid drug., 170, cm, 06/03/23 14:... Start Date: 06/04/23 Stop Date: 06/11/23 Status: Ordered cholecalciferol 50,000 intl units oral capsule 1 capsule = 50,000 International_Units, By Mouth, Every 7 days, # 13 capsule, 3 Refills, Maintenance, 02/08/23 9:24:00 EDT, Capsule, [facility]/pharmacy #1972, Partial fill upon patient request, 170, [...] 06/04/23 13:40:00 EST, Route to Pharmacy Electronically, [facility], Partial fill uponpatient request if [...] Unknown, 5 Refills, Maintenance, 12/11/22 19:25:00 EDT, [facility], 90, INSTILL 2 SPRAYS INTO EACH NOSTRIL 3 TIMES A DAY NEEDED FOR CONGESTION, 1... Start Date: 12/11/22 Status: Ordered metoprolol 25 mg oral tablet 12.5 mg, 0.5, tablet, By Mouth, Every 12 hours, # 30 tablet, Refills 0, Tot. 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 Refills 0, Maintenance, 05/24/23 8:17:00 EST, Route to Pharmacy Electronically, [facility]/pharmacy #1972, Partial fill upon patient request if [...] use disorder Confirmed Active Underweight Confirmed Active 11544 r lung wedge resection Social History Social History Type Response Tobacco Use: 4 or less cigar ettes(less than 1/4 pack)/day in last 30 days. Other: 2-3 cig/d x 40 years; was at 0.5 pp/d. Sex Patient Care team information Care Team Personnel Name: Aurelia Yang RN Position: Cam RN Member Role: Primary Care Nurse Name: Rhonda Escobedo NP Position: [facility] PCO Associate Professional Member Role: PCP Address: Address: [address] [facility], [address]rd [place] [address]- Name: Yue Delgado RN Position: [facility] RN Member Role: Primary Care Nurse Name: Debo Gagnon Position: [facility] RN Member Role: Primary Care Nurse Name: Lisa Awad RN Position: [facility] RN Member Role: Primary Care Nurse Name: Elly Rodriges RN Position: [facility] SN RN Member Role: Primary Care Nurse Name: Nilda Pop RN Position: [facility] RN Member Role: Primary Care Nurse Care Team Related Persons Name: REVA DIOPFER Address: [place] [address] Name: ELDER ANDERSON Address: home [address] [place] [address] Name: MAEGAN ANDERSON Address: home [address] [place] [address]
--- OUTSIDE RECORDS SUMMARY | 2024-03-09 07:30 | XMS_ITS | Continuity of Care Document ---
Author Organization [facility] Address [address] [place] [address] sheri, [address] [place] [address]- Care Team Providers Care Neurology Professor Name Role Phone Fanny TOURE, Rhonda Primary Care Physician [facility] Date(s): 06/05/23 - 07/05/23 [facility] [address] [place] [address], [address] [place] [address]- Allergies, Adverse Reactions, Alerts Substance Reaction Severity [...] Refills, Maintenance, 05/18/23 13:33:00 EDT, [facility], 25, INHALE 1 PUFF 4 TIMES A DAY NEEDED FOR COUGH, 170, cm, 05/05/23 12:54:00 EDT, Height, 50, kg, 11/15/21 11:2... Start Date: 05/18/23 Status: Ordered amLODIPine 5 mg oral tablet 1 tablet, By Mouth, Daily, # 90 tablet, 1 Refills, Maintenance, 06/09/23 9:12:00 EST, [facility], 170, cm, 06/03/23 14:00:00 EST, Height, 51, kg, 06/03/23 14:00:00 EST, Dry Weight Start Date: 06/09/23 Status: Ordered celecoxib 200 mg oral capsule 1 capsule = 200 mg, By Mouth, 2 times a day, # 14 capsule, 0 Refills, Maintenance, 06/04/23 13:40:00 EST, Capsule, [facility], Partial fill upon patient request if the prescription is for a schedule II opioid drug., 170, cm, 06/03/23 14:... Start Date: 06/04/23 Stop Date: 06/11/23 Status: Ordered cholecalciferol 50,000 intl units oral capsule 1 capsule = 50,000 International_Units, By Mouth, Every 7 days, # 13 capsule, 3 Refills, Maintenance, 02/08/23 9:24:00 EDT, Capsule, [facility]/pharmacy #1972, Partial fill upon [...] 06/04/23 13:40:00 EST, Route to Pharmacy Electronically, [facility], Partial fill uponpatient request [...] Unknown, 5 Refills, Maintenance, 12/11/22 19:25:00 EDT, [facility], 90, INSTILL 2 SPRAYS INTO EACH NOSTRIL 3 TIMES A DAY NEEDED FOR CONGESTION, 1... Start Date: 12/11/22 Status: Ordered metoprolol 25 mg oral tablet 12.5 mg, 0.5, tablet, By Mouth, Every 12 hours, # 30 tablet, Refills 0, Tot. Refills 0, Maintenance, 06/04/23 13:43:00 EST, Route to Pharmacy Electronically, [facility], Partial fill upon [...] tablet, By Mouth, Every 6 hours, PRN, # 224 tablet, Refills 0, Tot. Refills 0, Maintenance, as needed for pain, 06/23/23 7:29:00 EST, [facility], [facility], Partial fill upon patient request if the prescription... Start Date: 06/23/23 Stop Date: 07/21/23 Status: Ordered OxyCONTIN 20 mg oral tablet, extended release 20 mg, 1, tablet, By Mouth, Every 12 hours, photographer still chacked fill 06/23/23, # 56 tablet, Refills 0, Tot. Refills 0, Maintenance, 06/23/23 7:24:00 EST, [facility], [facility], Partial fill upon patient request if the prescriptio... Start Date: 06/23/23 Stop Date: 07/21/23 Status: Ordered Vasile See Instructions, # 1 [...] Confirmed Active Tobacco use disorder Confirmed Active 75279 r lung wedge resection Social History Social [...] Professional Member Role: PCP Address: Address: [address] [place] [address], [address] [place], [place] [address] Name: Yue Delgado RN Position: S RN Member Role: Primary Care Nurse Name: Debo Gagnon Position: S RN Member Role: Primary Care Nurse Name: Lisa Awad RN Position: S RN Member Role: Primary Care Nurse Name: Elly Rodriges RN Position: [facility] RN Member Role: Primary Care Nurse Name: Nilda Pop RN Position: S RN Member Role: Primary Care Nurse Care Team Related Persons Name: CHARLINE DIOP Address: [place] [address] Name: ELDER ANDERSON Address: home [address] [place] [address] Name: MAEGAN ANDERSON Address: home [address] [place] [address]
--- OUTSIDE RECORDS SUMMARY | 2024-03-09 07:30 | XMS_ITS | Continuity of Care Document ---
Author Organization [facility] Adult Address [address] [place] [address]- Care Team Providers Care Public Works Laborer Name Role Phone Fanny TOURE, Rhonda Primary Care Physician [facility] Date(s): 11/11/23 - 12/11/23 [facility] [address] [place] [address]- Allergies, Adverse Reactions, Alerts Substance Reaction Severity [...] Refills, Maintenance, 06/09/23 9:12:00 EST, [facility], 170, cm, 06/03/23 14:00:00 EST, Height, 51, kg, 06/03/23 14:00:00 EST, Dry Weight Start Date: 06/09/23 Status: Ordered atorvastatin 20 mg oral tablet 1 tablet, By Mouth, Daily, # 90 tablet, 1 Refills, Maintenance, 07/29/23 9:02:00 EST, [facility], 170, cm, 06/23/23 10:13:00 EST, Height, 51, kg, 06/03/23 14:00:00 EST, Dry Weight Start Date: 07/29/23 Status: Ordered celecoxib 200 mg oral capsule 1 capsule = 200 mg, By Mouth, 2 times a day, # 14 capsule, 0 Refills, Maintenance, 06/04/23 13:40:00 EST, Capsule, [facility], Partial fill upon patient [...] 06/04/23 13:40:00 EST, Route to Pharmacy Electronically, [facility], Partial fill uponpatient request if [...] Unknown, 5 Refills, Maintenance, 12/11/22 19:25:00 EDT, [facility], 90, INSTILL 2 SPRAYS INTO EACH NOSTRIL 3 TIMES A DAY NEEDED FOR CONGESTION, 1... Start Date: 12/11/22 Status: Ordered lisinopril 10 mg oral tablet 1, tablet, By Mouth, Daily, # 90 tablet, Refills 1, Maintenance, 09/07/23 9:20:00 EST, Route to Pharmacy Electronically, [facility], 170, cm, 07/29/23 14:04:00 EST, Height, 51, kg, 06/03/23 14:00:00 EST, Dry Weight Start Date: 09/07/23 Status: Ordered metoprolol 25 mg oral tablet 12.5 mg, 0.5, tablet, By Mouth, Every 12 hours, # 30 tablet, Refills 0, Tot. Refills 0, Maintenance, 06/04/23 13:43:00 EST, Route to Pharmacy Electronically, [facility], Partial fill upon patient request if the prescription is for a sche... Start Date: 06/04/23 Stop Date: 07/04/23 Status: Ordered nicotine 14 mg/24 hr transdermal film, extended release 1 patch, Topically, Daily, # 28 patch, 0 Refills, Maintenance, 07/27/23 14:23:00 EST, [facility], 28, APPLY 1 PATCH TOPICALLY DAILY, 170, cm, 06/23/23 10:13:00 EST, Height, 51, kg, 06/03/23 14:00:00 EST, Dry Weight Start Date: 07/27/23 Status: Ordered oxyCODONE 10 mg oral tablet 1 tablet = 10 mg, By Mouth, Every 6 hours, PRN as needed for pain, mechanical equipment test engineer assessed fill 12/08/23, # 112tablet, 0 Refills, Maintenance, 12/07/23 12:05:00 EDT, Tablet, [facility]/pharmacy #1972, Partial fill upon patient request if the prescription is for a sched... Start Date: 12/07/23 Stop Date: 01/04/24 Status: Ordered OxyCONTIN 20 mg oral tablet, extended release 20 mg, 1, tablet, By Mouth, Every 12 hours, mechanical equipment test engineer chacked fill 12/08/23, # 56 tablet, Refills 0, Tot. Refills 0, Maintenance, 12/07/23 12:05:00 EDT, Route to Pharmacy Electronically, [facility]/pharmacy #1972,Partial fill upon patient request if [...] Confirmed Active Tobacco use disorder Confirmed Active 06410 r lung wedge resection Social History Social History Type Response Smoking Status Former smoker, quit more than 30 days ago; Total pack years: 45; entered on: 09/17/23 Sex Patient Care team information Care Team Personnel Name: Aurelia Yang RN Position: [facility] RN Member Role: Primary Care Nurse Name: Rhonda Escobedo NP Position: [facility] PCO Associate Professional Member Role: PCP Address: Address: [address] [place] [address], [address] [place], [place] [address] Name: Yue Delgado RN Position: [facility] RN Member [...] Persons Name: CHARLINE DIOP Address: [place] [address] Name: ELDER ANDERSON Address: home [address] [place] [address] Name: MAEGAN ANDERSON Address: home [address] [place] [address]
--- OUTSIDE RECORDS SUMMARY | 2024-03-09 07:30 | XMS_ITS | Continuity of Care Document ---
Author Organization [facility] Adult Address [address] [place] [address]- Care Team Providers Care Oncology Social Work Name Role Phone Tonja TOURE, Jeannette Olivera Primary Care Physicia n [facility] Date[facility]s): 12/28/20 - 01/27/21 [facility] [address] [place] [address]- Allergies, Adverse Reactions, Alerts Substance Reaction Severity [...] 12/31/20 9:59:00 EDT, Route to Pharmacy Electronically, [facility]/pharmacy #1234, Partialfill upon patient request if the [...] Refills, Maintenance, 08/23/20 13:22:00 EST, CR Tablet, [facility]/pharmacy #1234, Partial fill upon patient request if the prescription is for a schedule II opioid drug., 170, cm, 08/21/20 6:19:00 EST, Heigh... Start Date: 08/23/20 Status: Ordered ProAir HFA 90 mcg/inh inhalation aerosol 2 puffs, Inhalation, Every 4 hours, PRN NEEDED FOR WHEEZE, # 8.5 Unknown, 5 Refills, Maintenance, 10/15/20 8:28:00 EDT, [facility]/pharmacy #1234, 17, 2 puffs Inhalation Every [...]
--- OUTSIDE RECORDS SUMMARY | 2024-03-09 07:30 | XMS_ITS | Continuity of Care Document ---
Author Organization [facility] Adult Address [address] [place] [address]- Care Team Providers Care Customer Engineering Specialist Name Role Phone Tonja TOURE, Jeannette Olivera Primary Care Physicia n Encounter [facility] Date(s): 10/24/21 - 10/31/21 [facility] [address] [place] [address]- Encounter Diagnosis Failed back syndrome(Discharge Diagnosis) - 10/24/21 Cervicalgia(Discharge Diagnosis) - 10/24/21 Chronic pain(Discharge Diagnosis) - 10/24/21 Hypertension(Discharge Diagnosis) - 10/24/21 Attending Physician: Not on Staff, Attending MD [...] 10/17/21 8:30:00 EDT, [facility] Partial fill upon patient request ifthe prescription is for a schedule II opioid drug.,... Start Date: 10/17/21 Status: Ordered Anusol-HC 2.5% cream with applicator 1 application, Rectally, 2 times a day, # 30 Gm, 1 Refills, Maintenance, 09/24/21 13:25:00 EST, Cream, [facility] Partial fill upon patient request if the prescription is for a schedule II opioid drug., 1 application Rectally 2 times a day, 1... Start Date: 09/24/21 Status: Ordered Anusol-HC 2.5% cream with applicator 1 application, Rectally, 2 times a day, # 30 Gm, 1 Refills, Maintenance, 06/27/21 14:24:00 EST, Cream, [facility] Partial fill upon patient request if the prescription is for a schedule II opioid drug., 1 application Rectally 2 times a day, 1... Start Date: 06/27/21 Status: Ordered atorvastatin 20 mg oral tablet 1 tablet = 20 mg, By Mouth, Daily, # 30 tablet, 5 Refills, Maintenance, 06/19/21 8:09:00 EST, Tablet, [facility] Partial fill upon patient request if [...] Effective Dates Health Status Clinical Service Informant Failed back syndrome Discharge Diagnosis 10/24/21 Cervicalgia Discharge Diagnosis 10/24/21 Chronic pain Discharge Diagnosis 10/24/21 Hypertension Discharge Diagnosis 10/24/21 Vital Signs Most recent to oldest [Reference Range]: 1 2 Height 170 cm (10/24/21 8:16 AM) 170 cm (10/24/21 8:09 AM) Weight 56.3 kg (10/24/21 8:09 AM) Oxygen Saturation [94-100 %] 99 % (10/24/21 8:09 AM) Pulse Rate [55-90 bpm] 51 bpm *L* (10/24/21 8:09 AM) Body Mass Index [18.5-24.99] 19.48 (10/24/21 8:09 AM) Blood Pressure [90-138/55-84 mm Hg] 154/ 71mm Hg *H* (10/24/21 8:16 AM) 167/71mm Hg *H* (10/24/21 8:09 AM) Temperature [96.8-100.4 DegF] 98.6 DegF (10/24/21 8:09 AM) Mode of Delivery (Oxygen) Room air (10/24/21 8:09 AM) Blood pressure sites Arm, left (10/24/21 8:16 AM) Arm, left (10/24/21 8:09 AM) Temperature Route Temporal (10/24/21 8:09 AM) Weight Obtained Via Standing scale (10/24/21 8:09 AM) Social History Social History Type Response Tobacco Other: Smokes about 12 cigarettes daily. Prior to this, smoking about 1 PPD for 35 years.. Sex
--- OUTSIDE RECORDS SUMMARY | 2024-03-09 07:30 | XMS_ITS | Continuity of Care Document ---
Author Organization [facility] Address Unknown Care Team Providers Care Repairer Recreational Vehicle Name Role Phone Tonja TOURE, Jeannette Olivera Primary Care Physicia n Encounter [facility] [place] [place] Date(s): 09/05/21 - 10/05/21 [facility] Allergies, Adverse Reactions, Alerts [...] 1 Refills, Maintenance, 09/24/21 13:25:00 EST, Cream, [facility]/pharmacy #1234, Partial fill upon [...] 5 Refills, Maintenance, 06/19/21 8:09:00 EST, Tablet, [facility]/pharmacy #1234, Partial fill upon [...] 84 capsule, 0 Refills, Maintenance, 04/15/21 10:30:00EDT, [facility]/pharmacy #1234, Partial fill upon patient request if the prescription is for a schedule IIopioid drug., use 6 cartridges per day, 170, cm, 09... Start Date: 04/15/21 Status: Ordered ProAir HFA 90 mcg/inh inhalation aerosol 2 puffs, Inhalation, Every 4 hours, PRN NEEDED FOR WHEEZE, # 1 each, 5 Refills, Maintenance, 07/02/21 8:53:00 EST, [facility]/pharmacy #1234, 2 puffs Inhalation [...]
--- OUTSIDE RECORDS SUMMARY | 2024-03-09 07:31 | XMS_ITS | Continuity of Care Document ---
Author Organization [facility] Address [address] [place] [address]- Care Team Providers Care Word Processor Technician Name Role Phone Tonja TOURE, Jeannette Olivera Primary Care Physicia n [facility] Date(s): 05/09/21 - 06/08/21 [facility] [address] [place] [address]- Attending Physician: Sam Carter Admitting Physician: Admtr, Sam Referring Physician: Admtr, [...] 84 capsule, 0 Refills, Maintenance, 04/15/21 10:30:00EDT, [facility]/pharmacy #1234, Partial fill [...]
--- OUTSIDE RECORDS SUMMARY | 2024-03-09 07:31 | XMS_ITS | Continuity of Care Document ---
Author Organization [facility] Adult Address [address] [place] [address]- Care Team Providers Care Placement Director Name Role Phone Fanny TOURE, Rhonda Primary Care Physician [phone] [facility] Date[facility]s): 05/22/23 - 06/21/23 [facility] [address] [place] [address]- Allergies, Adverse Reactions, Alerts Substance Reaction Severity [...] Refills, Maintenance, 05/18/23 13:33:00 EDT, [facility], 25, INHALE 1 PUFF 4 TIMES A DAY NEEDED FOR COUGH, 170, cm, 05/05/23 12:54:00 EDT, Height, 50, kg, 11/15/21 11:2... Start Date: 05/18/23 Status: Ordered amLODIPine 5 mg oral tablet 1 tablet, By Mouth, Daily, # 90 tablet, 1 Refills, Maintenance, 06/09/23 9:12:00 EST, [facility], 170, cm, 06/03/23 14:00:00 EST, Height, 51, [...] 3 Refills, Maintenance, 02/08/23 9:24:00 EDT, Capsule, [facility]/pharmacy #[id number], Partial fill upon patient request, [...] Electronically, [facility], Partial fill uponpatient request [...] Unknown, 5 Refills, Maintenance, 12/11/22 19:25:00 EDT, [facility] STORE 79194, 90, INSTILL 2 SPRAYS INTO EACH NOSTRIL [...] 0 Refills, Maintenance, 06/12/23 7:48:00 EST, Patch, [facility]/pharmacy #1972, Partial fill upon patient request [...] 1, tablet, By Mouth, Every 12 hours, nutrition services aide chacked fill 05/26/2023, # 56 tablet, Refills 0, Tot. Refills 0, Maintenance, 05/24/23 8:17:00 EST, Route to Pharmacy Electronically, [facility]/pharmacy #1972, Partial fill upon patient request [...] use disorder Confirmed Active Underweight Confirmed Active 72567 r lung wedge resection Social History Social [...] Professional Member Role: PCP Address: Address: [address] [facility], 3rd [place] [address]- Name: Yue Delgado RN Position: [facility] RN Member Role: Primary Care Nurse Name: Debo Gagnon Position: [facility] RN Member Role: Primary Care Nurse Name: Lisa Awad RN Position: [facility] RN Member Role: Primary Care Nurse Name: Elly Rodriges RN Position: [facility] SN RN Member Role: Primary Care Nurse Name: Nilda Pop RN Position: [facility] RN Member Role: Primary Care Nurse Care Team Related Persons Name: REVA DIOPFER Address: [place] [address] Name: ELDER ANDERSON Address: home [address] [place] [address] Name: MAGEAN ANDERSON Address: home [address] [place] [address]
--- OUTSIDE RECORDS SUMMARY | 2024-03-09 07:31 | XMS_ITS | Continuity of Care Document ---
Author Organization [facility] Address Unknown Care Team Providers Care Line Assembler Name Role Phone Tonja TOURE, Jeannette Olivera Primary Care Physicia n Encounter [facility] Date(s): 06/03/21 - 07/03/21 [facility] Allergies, Adverse Reactions, Alerts [...] 1 Refills, Maintenance, 06/27/21 14:24:00 EST, Cream, [facility]/pharmacy #1234, Partial fill upon patient request if the prescription is for a schedule II opioid drug., 1 application Rectally 2 times a day, 1... Start Date: 06/27/21 Status: Ordered atorvastatin 20 mg oral tablet 1 tablet = 20 mg, By Mouth, Daily, # 30 tablet, 5 Refills, Maintenance, 06/19/21 8:09:00 EST, Tablet, [facility]/pharmacy #1234, Partial fill upon patient request if [...] 5 Refills, Maintenance, 07/03/21 10:04:00 EST, Tablet, [facility]/pharmacy #1234, Partial fill upon patient request if [...]
--- OUTSIDE RECORDS SUMMARY | 2024-03-09 07:31 | XMS_ITS | Continuity of Care Document ---
Author Organization [facility] Adult Address [address] [place] [address]- Care Team Providers Care Outside Contractor Sales Name Role Phone Fanny TOURE, Rhonda Primary Care Physician [phone] [facility]counter [facility] Date[facility]s): 08/14/23 - 09/13/23 [facility] Adult [address] [place] [address]- Allergies, Adverse Reactions, Alerts Substance Reaction Severity [...] Refills, Maintenance, 05/18/23 13:33:00 EDT, [facility], 25, INHALE 1 PUFF 4 TIMES A DAY NEEDED FOR COUGH, 170, cm, 05/05/23 12:54:00 EDT, Height, 50, kg, 11/15/21 11:2... Start Date: 05/18/23 Status: Ordered amLODIPine 5 mg oral tablet 1 tablet, By Mouth, Daily, # 90 tablet, 1 Refills, Maintenance, 06/09/23 9:12:00 EST, [facility], 170, cm, 06/03/23 14:00:00 EST, Height, 51, kg, 06/03/23 14:00:00 EST, Dry Weight Start Date: 06/09/23 Status: Ordered atorvastatin 20 mg oral tablet 1 tablet, By Mouth, Daily, # 90 tablet, 1 Refills, Maintenance, 07/29/23 9:02:00 EST, [facility], 170, cm, 06/23/23 10:13:00 EST, Height, 51, kg, 06/03/23 14:00:00 EST, Dry Weight Start Date: 07/29/23 Status: Ordered celecoxib 200 mg oral capsule 1 capsule = 200 mg, By Mouth, 2 times a day, # 14 capsule, 0 Refills, Maintenance, 06/04/23 13:40:00 EST, Capsule, [facility], Partial fill upon patient [...] 06/04/23 13:40:00 EST, Route to Pharmacy Electronically, [facility], Partial fill uponpatient request [...] Unknown, 5 Refills, Maintenance, 12/11/22 19:25:00 EDT, [facility] 90[facility], 90, INSTILL 2 SPRAYS INTO EACH NOSTRIL 3 TIMES A DAY NEEDED FOR CONGESTION, 1... Start Date: 12/11/22 Status: Ordered lisinopril 10 mg oral tablet 1, tablet, By Mouth, Daily, # 90 tablet, Refills 1, Maintenance, 09/07/23 9:20:00 EST, Route to Pharmacy Electronically, [facility] 17882, 170, cm, 07/29/23 14:04:00 EST, Height, 51, kg, 06/03/23 14:00:00 EST, Dry Weight Start Date: 09/07/23 Status: Ordered metoprolol 25 mg oral tablet 12.5 mg, 0.5, tablet, By Mouth, Every 12 hours, # 30 tablet, Refills 0, Tot. Refills 0, Maintenance, 06/04/23 13:43:00 EST, Route to Pharmacy Electronically, [facility], Partial fill upon patient request if the prescription is for a sche... Start Date: 06/04/23 Stop Date: 07/04/23 Status: Ordered nicotine 14 mg/24 hr transdermal film, extended release 1 patch, Topically, Daily, # 28 patch, 0 Refills, Maintenance, 07/27/23 14:23:00 EST, [facility] STORE 65740, 28, APPLY 1 PATCH TOPICALLY DAILY, 170, cm, 06/23/23 10:13:00 EST, Height, 51, kg, 06/03/23 14:00:00 EST, Dry Weight Start Date: 07/27/23 Status: Ordered oxyCODONE 5 mg oral tablet 10 mg, 2, tablet, By Mouth, Every 6 hours, PRN, fill on 08/18/23, # 224 tablet, Refills 0, Tot. Refills 0, Maintenance, as needed for pain, 08/18/23 9:46:00 EST, Route to Pharmacy Electronically, [facility]/pharmacy #[id number], Partial fill upon patient request if... Start Date: 08/18/23 Stop Date: 09/15/23 Status: Ordered OxyCONTIN 20 mg oral tablet, extended release 20 mg, 1, tablet, By Mouth, Every 12 hours, applications support engineer chacked fill 08/18/23, # 56 tablet, Refills [...] Confirmed Active Tobacco use disorder Confirmed Active 67347 r lung wedge resection Social History Social History Type Response Tobacco Use: 4 or less cigar ettes(less than 1/4 pack)/day in last 30 days. Other: 2-3 cig/d x 40 years; was at 0.5 pp/d. Sex Patient Care team information Care Team Personnel Name: Aurelia Yang RN Position: [facility] RN Member Role: Primary Care Nurse Name: Rhonda Escobedo NP Position: [facility] PCO Associate Professional Member Role: PCP Address: Address: [address] [place] [address], [address] Floor [place], [place] [address] Name: Yue Delgado RN Position: S RN Member Role: Primary Care Nurse Name: Debo Gagnon Position: S RN Member Role: Primary Care Nurse Name: Lisa Awad RN Position: S RN Member Role: Primary Care Nurse Name: Elly Rodriges RN Position: [facility] RN Member Role: Primary Care Nurse Name: Nilda Pop RN Position: S RN Member Role: Primary Care Nurse Care Team Related Persons Name: DIOP CHARLINE Address: [place] [address] Name: ELDER ANDERSON Address: home [address] [place] [address] Name: MAEGAN ANDERSON Address: home [address] [place] [address]
--- OUTSIDE RECORDS SUMMARY | 2024-03-09 07:31 | XMS_ITS | Continuity of Care Document ---
Author Organization [facility] Adult Address [address] [place] [address]- Care Team Providers Care Cartographic Aide Name Role Phone Fanny TOURE, Rhonda Primary Care Physician [phone] [facility] Date[facility]s): 10/29/21 - 11/28/21 [facility] [address] [place] [address]- Allergies, Adverse Reactions, Alerts Substance Reaction Severity [...] FOR WHEEZING, # 8.5 each, 5 Refills, [facility] STORE 20741, 17, INHALE 2 PUFFS EVERY 4 HOURS NEEDED FOR WHEEZING, 170, cm, 11/15/21 11:23:00 EDT, Height, 50, kg, 11/15/21 11:23:00 EDT, Dry Weight Start Date: 11/17/21 Status: Ordered amLODIPine 5 mg oral tablet 1 tablet, By Mouth, Daily, # 90 tablet, 0 Refills, [facility] STORE 62187, 170, cm, 11/15/21 11:23:00 EDT,Height, 50, kg, 11/15/21 11:23:00 EDT, Dry Weight Start Date: 11/17/21 Status: Ordered Anusol-HC 2.5% cream with applicator 1 application, Rectally, 2 times a day, # 30 Gm, 1 Refills, Maintenance, 09/24/21 13:25:00 EST, Cream, [facility]/pharmacy #1234, Partial fill upon patient request if the prescription is for a schedule II opioid drug., 1 application Rectally 2 times a day, 1... Start Date: 09/24/21 Status: Ordered Anusol-HC 2.5% cream with applicator 1 application, Rectally, 2 times a day, # 30 Gm, 1 Refills, Maintenance, 06/27/21 14:24:00 EST, Cream, [facility]/pharmacy #1234, Partial fill upon patient request if the prescription is for a schedule II opioid drug., 1 application Rectally 2 times a day, 1... Start Date: 06/27/21 Status: Ordered atorvastatin 20 mg oral tablet 1 tablet = 20 mg, By Mouth, Daily, # 30 tablet, 5 Refills, Maintenance, 11/17/21 19:20:00 EDT, Tablet, [facility]/pharmacy #1234, Partial fill upon patient request if [...] 0 Refills, Maintenance, 11/18/21 8:27:00 EDT, Tablet, [facility]/pharmacy #1234, Partial fill upon patient request if [...]
--- OUTSIDE RECORDS SUMMARY | 2024-03-09 07:31 | XMS_ITS | Continuity of Care Document ---
Author Organization [facility] Address [address] [place] [address]- Care Team Providers Care Oil Inspector Name Role Phone Fanny TOURE, Rhonda Primary Care Physician [phone] [facility]counter [facility] Date(s): 01/29/22 - 02/28/22 [facility] [address] [facility] [address] [place] [address]- Attending Physician: Sam Carter Admitting Physician: Sam [...] 8.5 each, 5 Refills, 02/05/22 13:07:00 EDT, [facility]/pharmacy #1234, 17, 2 puffs Inhalation Every 4 hours,PRN: NEEDED FOR WHEEZING, 170,cm, 12/31/21 8:21:00 EDT, Height, 50, kg, 11/15/21... Start Date: 02/05/22 Status: Ordered amLODIPine 5 mg oral tablet 1 tablet, By Mouth, Daily, # 90 tablet, 0 Refills, [facility], 170, cm, 11/15/21 11:23:00 EDT,Height, 50, kg, [...] 1 Refills, Maintenance, 06/27/21 14:24:00 EST, Cream, [facility]/pharmacy #1234, Partial fill upon patient request [...] EVERY DAY, # 90 tablet, 1 Refills, [facility] STORE 58180, 170, cm, 12/17/21 8:41:00 EDT, Height, 50, [...] Refills, Maintenance, 09/24/21 11:18:00 EST, Cream, [facility]/pharmacy #1234, Partial fill upon patient request if the prescription is for a schedule II opioid drug., 1 application Topically 3 times a day,... Start Date: 09/24/21 Status: Ordered hydrocortisone topical 25 mg suppository 1 supp = 25 mg, Rectally, 2 times a day, # 28 supp, 0 Refills, Maintenance, 10/02/21 13:05:00 EDT, Suppository, [facility]/pharmacy #1234, Partial fill upon patient request if the prescription is for a schedule II opioid drug., 170, cm, 10/02/21 10:36:00 EDT... Start Date: 10/02/21 Stop Date: 10/16/21 Status: Ordered ipratropium nasal 21 mcg/inh spray See Instructions, INSTILL 2 SPRAYS INTO EACH NOSTRIL 3 TIMES A DAY NEEDED FOR CONGESTION, # 30 Unknown, 0 Refills, [facility] STORE 00328, 30, INSTILL 2 SPRAYS INTO EACH NOSTRIL 3 TIMES A DAY NEEDED FOR CONGESTION, 170, cm, 12/31/21 8:21:00 EDT, Height... Start Date: 02/05/22 Status: Ordered lisinopril 10 mg oral tablet 1, tablet, By Mouth, Daily, # 90 tablet, Refills 1, Tot. Refills 1, Maintenance, 02/16/22 16:25:00 EDT, [facility], 170, cm, 12/31/21 8:21:00 EDT, Height, 50, kg, 11/15/21 11:23:00 EDT, Dry Weight Start Date: 02/16/22 Status: Ordered Nicotrol Inhaler 10 mg inhalation device See Instructions, USE 6 CARTRIDGES PER DAY, # 168 Unknown, 0 Refills, Maintenance, 02/03/22 9:21:00EDT, [facility]/pharmacy #1234, 28, USE 6 CARTRIDGES PER DAY, 170, cm, 12/31/21 8:21:00 EDT, Height, 50, kg, 11/15/21 11:23:00 EDT, Dry Weight Start Date: 02/03/22 Status: Ordered oxyCODONE 10 mg oral tablet 1 tablet = 10 mg, By Mouth, Every 6 hours, PRN as needed for severe pain, fill on 02/07/22, # 112 tablet, 0 Refills, Maintenance, 02/06/22 17:30:00 EDT, Tablet, [facility]/pharmacy #1234, Partial fill upon patient request if the prescription is for a schedule... Start Date: 02/06/22 Stop Date: 03/06/22 Status: Ordered OxyCONTIN 10 mg oral tablet, extended release 10 mg, 1, tablet, By Mouth, Every 12 hours, fill on 02/16/22, # 38 tablet, Refills 0, Tot. Refills 0, Maintenance, 02/13/22 17:24:00 EDT, [facility], [id number], in addition to his IR oxycodone, 170, [...]
--- OUTSIDE RECORDS SUMMARY | 2024-03-09 07:31 | XMS_ITS | Continuity of Care Document ---
Author Organization [facility] Adult Address [address] [place] [address]- Care Team Providers Care Dye Tank Tender Name Role Phone Tonja TOURE, Jeannette Olivera Primary Care Physicia n Encounter [facility] Date(s): 06/19/21 - 07/19/21 [facility] [address] [place] [address]- [place] Allergies, Adverse Reactions, Alerts Substance Reaction [...] Refills, Maintenance, 06/27/21 14:24:00 EST, Cream, [facility]/pharmacy #1234, Partial fill upon patient request if the prescription is for a schedule II opioid drug., 1 application Rectally 2 times a day, 1... Start Date: 06/27/21 Status: Ordered Anusol-HC 2.5% cream with applicator 1 application, Rectally, 2 times a day, # 30 Gm, 1 Refills, Maintenance, 06/27/21 14:24:00 EST, Cream, [facility]/pharmacy #1234, Partial fill upon patient request if the prescription is for a schedule II opioid drug., 1 application Rectally 2 times a day, 1... Start Date: 06/27/21 Status: Ordered atorvastatin 20 mg oral tablet 1 tablet = 20 mg, By Mouth, Daily, # 30 tablet, 5 Refills, Maintenance, 06/19/21 8:09:00 EST, Tablet, [facility]/pharmacy #1234, Partial fill upon patient request [...] 5 Refills, Maintenance, 07/03/21 10:04:00 EST, Tablet, [facility]/pharmacy #1234, Partial fill upon patient request [...]
--- OUTSIDE RECORDS SUMMARY | 2024-03-09 07:31 | XMS_ITS | Continuity of Care Document ---
Author Organization [facility] Adult Address [address] [place] [address]- Care Team Providers Care Router Operator Pin Name Role Phone Fanny TOURE, Rhonda Primary Care Physician [phone] [facility]counter [facility] Date(s): 06/22/23 - 07/22/23 [facility] [address] [place] [address]- Allergies, Adverse Reactions, Alerts Substance Reaction Severity [...] Refills, Maintenance, 05/18/23 13:33:00 EDT, [facility], 25, INHALE 1 PUFF 4 TIMES A DAY NEEDED FOR COUGH, 170, cm, 05/05/23 12:54:00 EDT, Height, 50, kg, 11/15/21 11:2... Start Date: 05/18/23 Status: Ordered amLODIPine 5 mg oral tablet 1 tablet, By Mouth, Daily, # 90 tablet, 1 Refills, Maintenance, 06/09/23 9:12:00 EST, [facility], 170, cm, 06/03/23 14:00:00 EST, Height, 51, kg, 06/03/23 14:00:00 EST, Dry Weight Start Date: 06/09/23 Status: Ordered celecoxib 200 mg oral capsule 1 capsule = 200 mg, By Mouth, 2 times a day, # 14 capsule, 0 Refills, Maintenance, 06/04/23 13:40:00 EST, Capsule, [facility], Partial fill upon patient request if the prescription is for a schedule II opioid drug., 170, cm, 06/03/23 14:... Start Date: 06/04/23 Stop Date: 06/11/23 Status: Ordered cholecalciferol 50,000 intl units oral capsule 1 capsule = 50,000 International_Units, By Mouth, Every 7 days, # 13 capsule, 3 Refills, Maintenance, 02/08/23 9:24:00 EDT, Capsule, [facility]/pharmacy #1972, Partial fill upon patient request, 170, [...] 06/04/23 13:40:00 EST, Route to Pharmacy Electronically, [facility], Partial fill uponpatient request [...] 5 Refills, Maintenance, 12/11/22 19:25:00 EDT, [facility] 04982, 90, INSTILL 2 SPRAYS INTO EACH NOSTRIL 3 TIMES A DAY NEEDED FOR CONGESTION, 1... Start Date: 12/11/22 Status: Ordered metoprolol 25 mg oral tablet 12.5 mg, 0.5, tablet, By Mouth, Every 12 hours, # 30 tablet, Refills 0, Tot. 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 Other: 2-3 cig/d x 40 years; was at 0.5 pp/d. Sex Patient Care team information Care Team Personnel Name: Aurelia Yang RN Position: S RN Member Role: Primary Care Nurse Name: Rhonda Escobedo NP Position: [facility] PCO Associate Professional Member Role: PCP Address: Address: [address] [place] [address], 3rd [address] [place], [place] [address] Name: Yue Delgado RN Position: S RN Member Role: Primary Care Nurse Name: Debo Gagnon Position: S RN Member Role: Primary Care Nurse Name: Lisa Awad RN Position: S RN Member Role: Primary Care Nurse Name: Elly Rodriges RN Position: [facility] RN Member Role: Primary Care Nurse Name: Nilda Pop RN Position: S RN Member Role: Primary Care Nurse Care Team Related Persons Name: CHARLINE DIOP Address: [place] [address] Name: ELDER ANDERSON Address: home [address] [place] [address] Name: MAEGAN ANDERSON Address: home [address] [place] [address]
--- OUTSIDE RECORDS SUMMARY | 2024-03-09 07:31 | XMS_ITS | Continuity of Care Document ---
Author Organization [facility] Address Unknown Care Team Providers Care Gambling Dealer Name Role Phone Tonja TOURE, Jeannette Olivera Primary Care Physicia n Encounter [facility] Date(s): 06/05/21 - 06/12/21 [facility] Attending Physician: Garrison Pepper MD Referring Physician: [...] 84 capsule, 0 Refills, Maintenance, 04/15/21 10:30:00EDT, [facility]/pharmacy #1234, Partial fill upon patient request if the prescription is for a schedule IIopioid drug., use 6 cartridges per day, 170, cm, ... Start Date: 04/15/21 Status: Ordered ProAir HFA 90 mcg/inh inhalation aerosol 2 puffs, Inhalation, Every 4 hours, PRN NEEDED FOR WHEEZE, # 1 each, 5 Refills, Maintenance, 03/01/21 12:03:00 EDT, [facility]/pharmacy #1234, 2 puffs Inhalation Every [...] recent to oldest [Reference Range]: 1 Height 170.18 cm (06/05/21 9:39 AM) Weight 56.4 kg (06/05/21 9:39 AM) Pulse Rate [55-90 bpm] 60 bpm (06/05/21 9:39 AM) Body Mass Index [18.5-24.99] 19.47 (06/05/21 9:39 AM) Blood Pressure [90-138/55-84 mm Hg] 143/ 73mm Hg *H* (06/05/21 9:39 AM) Respiratory Rate [16-30 br/min] 16 br/mi n (06/05/21 9:39 AM) Temperature [96.8-100.4 DegF] 97.2 DegF (06/05/21 9:39 AM) Blood pressure sites Arm, right (06/05/21 9:39 AM) Temperature Route Temporal (06/05/21 9:39 AM) Weight Obtained Via Standing scale (06/05/21 9:39 AM) Social History Social History Type Response Tobacco Other: Smokes about 12 cigarettes daily. Prior to this, smoking about 1 PPD for 35 years.. Sex
--- OUTSIDE RECORDS SUMMARY | 2024-03-09 07:31 | XMS_ITS | Continuity of Care Document ---
Author Organization [facility] Adult Address [address] [place] [address]- Care Team Providers Care Pneumatic Tester Name Role Phone Rhonda Escobedo NP Primary Care Physician Encounter [facility] Date(s): 12/17/21 - 12/24/21 [facility] Adult [address] [place] [phone]- Encounter Diagnosis DJD (degenerative joint disease) of cervical spine(Discharge Diagnosis) - 12/22/21 Attending Physician: Not on Staff, Attending MD [...] FOR WHEEZING, # 8.5 each, 5 Refills, [id number], 17, INHALE 2 PUFFS EVERY 4 HOURS NEEDED FOR WHEEZING, 170, cm, 11/15/21 11:23:00 EDT, Height, 50, kg, 11/15/21 11:23:00 EDT, Dry Weight Start Date: 11/17/21 Status: Ordered amLODIPine 5 mg oral tablet 1 tablet, By Mouth, Daily, # 90 tablet, 0 Refills, [id number], 170, cm, 11/15/21 11:23:00 EDT,Height, 50, kg, 11/15/21 11:23:00 EDT, Dry Weight Start Date: 11/17/21 Status: Ordered amoxicillin-clavulanate 875 mg-125 mg oral tablet 1 tablet, By Mouth, Every 12 hours, for 10 days, # 20 tablet, 0 Refills, Acute 12/30/21 17:07:00 EDT, 12/20/21 17:07:00 EDT, Tablet, [facility]/pharmacy #1234, Partial fill upon patient request if the prescription is for a schedule II opioid drug., 170, cm,... Start Date: 12/20/21 Stop Date: 12/30/21 Status: Ordered Anusol-HC 2.5% cream with applicator 1 application, Rectally, 2 times a day, # 30 Gm, 1 Refills, Maintenance, 09/24/21 13:25:00 EST, Cream, [facility]/pharmacy #1234, Partial fill upon [...] 5 Refills, Maintenance, 11/17/21 19:20:00 EDT, Tablet, [facility]/pharmacy #1234, Partial fill upon patient request if the prescription is for a schedule II opioid drug., 170, cm, 11/15/21 11:23:00 EDT, Height,... Start Date: 11/17/21 Status: Ordered atorvastatin 20 mg oral tablet See Instructions, TAKE 1 TABLET BY MOUTH EVERY DAY, # 90 tablet, 1 Refills, [facility] 76983, 170, cm, 12/17/21 8:41:00 EDT, Height, 50, [...] 2 Refills, Maintenance, 09/24/21 11:18:00 EST, Cream, [facility]/pharmacy #1234, Partial fill upon patient request if the prescription is for a schedule II opioid drug., 1 application Topically 3 times a day,... Start Date: 09/24/21 Status: Ordered hydrocortisone topical 25 mg suppository 1 supp = 25 mg, Rectally, 2 times a day, # 28 supp, 0 Refills, Maintenance, 10/02/21 13:05:00 EDT, Suppository, [facility]/pharmacy #1234, Partial fill upon patient request if the prescription is for a schedule II opioid drug., 170, cm, 10/02/21 10:36:00 EDT... Start Date: 10/02/21 Stop Date: 10/16/21 Status: Ordered ipratropium nasal 21 mcg/inh spray 2 sprays, Nares, Both, 3 times a day, PRN as needed for congestion, # 1 each, 0 Refills, Acute 01/19/22 17:07:00 EDT, 12/20/21 17:07:00 EDT, [facility]/pharmacy #1234, Partial fill upon patient request if the prescription is for a schedule II opioid drug., 2... Start Date: 12/20/21 Stop Date: 01/19/22 Status: Ordered lisinopril 10 mg oral tablet 1, tablet, By Mouth, Daily, # 30 tablet, Refills 1, Route to Pharmacy Electronically, [facility], 170, cm, 12/05/21 10:11:00 EDT, Height, 50, kg, 11/15/21 11:23:00 EDT, Dry Weight Start Date: 12/13/21 Status: Ordered lisinopril 40 mg oral tablet See Instructions, TAKE 1 TABLET BY MOUTH EVERY DAY, # 90 tablet, 1 Refills, [facility], 170, cm, 12/17/21 8:41:00 EDT, Height, 50, kg, 11/15/21 11:23:00 EDT, Dry Weight Start Date: 12/17/21 Status: Ordered Nicotrol Inhaler 10 mg inhalation device See Instructions, use 6 cartridges per day, # 84 capsule, 0 Refills, Maintenance, 04/15/21 10:30:00EDT, [facility]/pharmacy #1234, Partial fill upon patient request if the prescription is for a schedule IIopioid drug., use 6 cartridges per day, 170, cm, 09... Start Date: 04/15/21 Status: Ordered oxyCODONE 10 mg oral tablet 1 tablet = 10 mg, By Mouth, Every 6 hours, PRN as needed for severe pain, # 120 tablet, 0 Refills, Maintenance, 12/17/21 10:05:00 EDT, Tablet, [facility]/pharmacy #1234, Partial fill upon patient request ifthe prescription is for a schedule II opioid drug.... Start Date: 12/17/21 Stop Date: 01/16/22 Status: Ordered OxyCONTIN 10 mg oral tablet, extended release 10 mg, 1, tablet, By Mouth, Every 12 hours, # 56 tablet, Refills 0, Tot. Refills 0, Maintenance, 12/13/21 10:46:00 EDT, Route to Pharmacy Electronically, [facility]/pharmacy #1234, in addition to his IR [...] Diagnosis Diagnosis Type Effective Dates Health Status Cl inical Service Informant DJD (degenerative joint disease) of cervical spine Discharge Diagnosis 12/22/21 Vital Signs Most recent to oldest [Reference Range]: 1 Height 170 cm (12/17/21 8:41 AM) Weight 57.72 kg (12/17/21 8:41 AM) Body Mass Index [18.5-24.99] 19.97 (12/17/21 8:41 AM) Weight Obtained Via Patient/family state d (12/17/21 8:41 AM) Social History Social History Type Response Tobacco Other: Smokes about 12 cigarettes daily. Prior to this, smoking about 1 PPD for 35 years.. Sex
--- OUTSIDE RECORDS SUMMARY | 2024-03-09 07:31 | XMS_ITS | Continuity of Care Document ---
Author Organization [facility] Adult Address [address] [place] [address]- Care Team Providers Care Plate Washer Name Role Phone Tonja TOURE, Jeannette Olivera Primary Care Physicia n [facility] Date[facility]s): 04/15/21 - 05/15/21 [facility] [address] [place] [phone]- Allergies, Adverse Reactions, Alerts Substance Reaction Severity [...] Refills 0, Maintenance, 05/14/21 9:22:00 EDT, Partial fill upon patient request if the prescription is for a schedule II opioid drug. Start Date: 05/14/21 Status: Ordered meloxicam 15 mg oral tablet 1 tablet = 15 mg, By Mouth, Daily, # 30 tablet, 0 Refills, Maintenance, 05/14/21 9:22:00 EDT, Tablet, Partial fill upon patient request [...] Refills, Maintenance, 08/23/20 13:22:00 EST, CR Tablet, [id number], Partial fill upon patient [...]
--- OUTSIDE RECORDS SUMMARY | 2024-03-09 07:31 | XMS_ITS | Continuity of Care Document ---
Author Organization [facility] Adult Address [address] [place] [address]- Care Team Providers Care Photographer'S Assistant Name Role Phone Fanny TOURE, Rhonda Primary Care Physician [phone] Encounter [facility] Date(s): 05/18/23 - 06/17/23 [facility] [address] [place] [address]- Allergies, Adverse Reactions, Alerts Substance Reaction Severity [...] Refills, Maintenance, 05/18/23 13:33:00 EDT, [facility], 25, INHALE 1 PUFF 4 TIMES A DAY NEEDED FOR COUGH, 170, cm, 05/05/23 12:54:00 EDT, Height, 50, kg, 11/15/21 11:2... Start Date: 05/18/23 Status: Ordered amLODIPine 5 mg oral tablet 1 tablet, By Mouth, Daily, # 90 tablet, 1 Refills, Maintenance, 06/09/23 9:12:00 EST, [facility], 170, cm, 06/03/23 14:00:00 EST, Height, 51, [...] 3 Refills, Maintenance, 02/08/23 9:24:00 EDT, Capsule, [facility]/pharmacy #1972, Partial fill upon patient [...] 06/04/23 13:40:00 EST, Route to Pharmacy Electronically, [facility], Partial fill uponpatient request [...] Unknown, 5 Refills, Maintenance, 12/11/22 19:25:00 EDT, [facility], 90, INSTILL 2 SPRAYS INTO EACH NOSTRIL [...] 0 Refills, Maintenance, 06/12/23 7:48:00 EST, Patch, 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 Refills 0, Maintenance, 05/24/23 8:17:00 EST, Route to Pharmacy Electronically, [facility]/pharmacy #1972, Partial fill upon patient [...] use disorder Confirmed Active Underweight Confirmed Active 17966 r lung wedge resection Social History Social History Type Response Tobacco Use: 4 or less cigar ettes(less than 1/4 pack)/day in last 30 days. Other: 2-3 cig/d x 40 years; was at 0.5 pp/d. Sex Patient Care team information Care Team Personnel Name: Aurelia Yang RN Position: S RN Member Role: Primary Care Nurse Name: Rhonda Escobedo NP Position: [facility] Associate Professional Member Role: PCP Address: Address: [address], [address] [place] [address]- Name: Yue Delgado RN Position: S RN Member Role: Primary Care Nurse Name: Debo Gagnon Position: S RN Member Role: Primary Care Nurse Name: Lisa Awad RN Position: [facility] RN Member Role: Primary Care Nurse Name: Elly Rodriges RN Position: [facility] SN RN Member Role: Primary Care Nurse Name: Nilda Pop RN Position: S RN Member Role: Primary Care Nurse Care Team Related Persons Name: JADON CHARLINE Address: [place] [address] Name: ELDER ANDERSON Address: home [address] [place] [address] Name: MAEGAN ANDERSON Address: home [address] [place] [address]
--- OUTSIDE RECORDS SUMMARY | 2024-03-09 07:31 | XMS_ITS | Continuity of Care Document ---
Author Organization [facility] Address Unknown Care Team Providers Care Motor Vehicles Supervisor Name Role Phone Tonja TOURE, Jeannette Olivera Primary Care Physicia n [facility] Date(s): 04/02/21 - 05/02/21 [facility] Allergies, Adverse Reactions, Alerts [...] 04/08/21 7:58:00 EDT, Route to Pharmacy Electronically, [facility]/pharmacy #1234, Partial fill upon patient request if the prescription is for a schedule II opioid drug.... Start Date: 04/08/21 Status: Ordered Nicotrol Inhaler 10 mg inhalation device See Instructions, use 6 cartridges per day, # 84 capsule, 0 Refills, Maintenance, 04/15/21 10:30:00EDT, [facility]/pharmacy #1234, Partial fill upon patient request if the prescription is for a schedule IIopioid drug., use 6 cartridges per day, 170, cm, 09... Start Date: 04/15/21 Status: Ordered omeprazole 20 mg oral delayed release tablet 1 tablet = 20 mg, By Mouth, Daily, # 90 tablet, 1 Refills, Maintenance, 08/23/20 13:22:00 EST, CR Tablet, [facility]/pharmacy #1234, Partial fill upon patient request if the prescription is for a schedule II opioid drug., 170, cm, 08/21/20 6:19:00 EST, Heigh... Start Date: 08/23/20 Status: Ordered ProAir HFA 90 mcg/inh inhalation aerosol 2 puffs, Inhalation, Every 4 hours, PRN NEEDED FOR WHEEZE, # 1 each, 5 Refills, Maintenance, 03/01/21 12:03:00 EDT, [facility]/pharmacy #1234, 2 puffs Inhalation Every 4 [...]
--- OUTSIDE RECORDS SUMMARY | 2024-03-09 07:31 | XMS_ITS | Continuity of Care Document ---
Author Organization [facility] Adult Address [address] [place] [address]- Care Team Providers Care Pullman Car Clerk Name Role Phone Fanny TOURE, Rhonda Primary Care Physician [facility] Date(s): 09/02/22 - 10/02/22 [facility] [address] [place] [phone]- Allergies, Adverse Reactions, Alerts Substance Reaction Severity [...] 8.5 each, 5 Refills, Maintenance,06/04/22 13:05:00 EST, [facility], 30, TAKE 2 PUFFS BY MOUTH EVERY 4 HOURS NEEDED FOR WHEEZING, 170, cm, 04/10/22 14:30:00 EDT, Height, 50, kg,... Start Date: 06/04/22 Status: Ordered amLODIPine 5 mg oral tablet 1 tablet, By Mouth, Daily, # 90 tablet, 1 Refills, Maintenance, 06/23/22 9:11:00 EST, [facility] [address]32, 170, cm, 04/10/22 14:30:00 EDT, Height, 50, [...] tablet, 1 Refills, Maintenance, 08/05/22 7:46:00 EST, [facility] 09010, 170, cm, 08/05/22 7:32:00 EST, Height, 50, kg, 11/15/21 11:23:00 EDT, Dry Weight Start Date: 08/05/22 Status: Ordered atorvastatin 20 mg oral tablet 1 tablet = 20 mg, By Mouth, Daily, # 30 tablet, 5 Refills, Maintenance, 11/17/21 19:20:00 EDT, Tablet, [facility]/pharmacy #1234, Partial fill upon patient request if the prescription is for a schedule II opioid drug., 170, cm, 11/15/21 11:23:00 EDT, Height,... Start Date: 11/17/21 Status: Ordered atorvastatin 20 mg oral tablet 1 tablet = 20 mg, By Mouth, Daily, for 90 days, # 90 tablet, 1 Refills, Physician Stop 12/15/22 11:17:00 EDT, 06/18/22 11:17:00 EST, [facility]/pharmacy #1234, 170, cm, 04/10/22 14:30:00 EDT, [...] 2 Refills, Maintenance, 09/24/21 11:18:00 EST, Cream, [facility]/pharmacy #1234, Partial fill upon patient request if the prescription is for a schedule II opioid drug., 1 application Topically 3 times a day,... Start Date: 09/24/21 Status: Ordered hydrocortisone topical 25 mg suppository 1 supp = 25 mg, Rectally, 2 times a day, # 28 supp, 0 Refills, Maintenance, 10/02/21 13:05:00 EDT, Suppository, [facility]/pharmacy #1234, Partial fill upon patient request if the prescription is for a schedule II opioid drug., 170, cm, 10/02/21 10:36:00 EDT... Start Date: 10/02/21 Stop Date: 10/16/21 Status: Ordered ipratropium nasal 21 mcg/inh spray See Instructions, INSTILL 2 SPRAYS INTO EACH NOSTRIL 3 TIMES A DAY NEEDED FOR CONGESTION, # 90 Unknown, 1 Refills, Maintenance, 07/23/22 14:20:00 EST, [facility] 79057, 90, INSTILL 2 SPRAYS INTO EACH NOSTRIL 3 TIMES A DAY NEEDED FOR CONGESTION, 1... Start Date: 07/23/22 Status: Ordered lisinopril 10 mg oral tablet 1, tablet, By Mouth, Daily, # 90 tablet, Refills 1, Maintenance, 08/25/22 11:40:00 EST, Route to Pharmacy Electronically, [facility] 60136, 170, cm, 08/05/22 8:05:00 EST, Height, 50, kg, 11/15/21 11:23:00 EDT, Dry Weight Start Date: 08/25/22 Status: Ordered Nicotrol Inhaler 10 mg inhalation device See Instructions, USE 6 CARTRIDGES PER DAY, # 168 Unknown, 0 Refills, Maintenance, 02/03/22 9:21:00EDT, [facility]/pharmacy #1234, 28, USE 6 CARTRIDGES PER DAY, 170, cm, 12/31/21 8:21:00 EDT, Height, 50, kg, 11/15/21 11:23:00 EDT, Dry Weight Start Date: 02/03/22 Status: Ordered oxyCODONE 10 mg oral tablet 1 tablet = 10 mg, By Mouth, Every 6 hours, PRN as needed for severe pain, # 112 tablet, 0 Refills, Maintenance, 09/18/22 10:09:00 EST, Tablet, [facility]/pharmacy #1234, Partial fill upon patient request ifthe prescription is for a schedule II opioid drug.... Start Date: 09/18/22 Stop Date: 10/16/22 Status: Ordered OxyCONTIN 10 mg oral tablet, extended release 10 mg, 1, tablet, By Mouth, Every 12 hours, # 56 tablet, Refills 0, Tot. Refills 0, Maintenance, 09/18/22 10:09:00 EST, Route to Pharmacy Electronically, [facility]/pharmacy #1234, in addition to his IR oxycodone, 170, cm, 08/05/22 8:05:00 EST, Height, 50, k... Start Date: 09/18/22 Stop Date: 10/16/22 Status: Ordered Problem List Condition Confirmation Course [...] Team Personnel Name: Rhonda Escobedo NP Position: [facility] Associate Professional Member Role: PCP Address: Address: [address] [place] [address], [address] [place] [address]- Name: Lisa Awad RN Position: S RN Member Role: Primary Care Nurse Name: Elly Rodriges RN Position: [facility] RN Member Role: Primary Care Nurse Care Team Related Persons Name: CHARLINE DIOP Address: [place] [address] Name: ELDER ANDERSON Address: home [address] [place] [address] Name: MAEGAN ANDERSON Address: home [address] [place] [address]
--- OUTSIDE RECORDS SUMMARY | 2024-03-09 07:31 | XMS_ITS | Continuity of Care Document ---
Author Organization [facility] Address Unknown Care Team Providers Care Job Tracer Name Role Phone Tonja TOURE, Jeannette Olivera Primary Care Physicia n [facility] Date[facility]s): 05/16/21 - 06/15/21 [facility] Allergies, Adverse Reactions, [...] 84 capsule, 0 Refills, Maintenance, 04/15/21 10:30:00EDT, [facility]/pharmacy #1234, Partial fill upon patient request if the prescription is for a schedule IIopioid drug., use 6 cartridges per day, 170, cm, 09... Start Date: 04/15/21 Status: Ordered ProAir HFA 90 mcg/inh inhalation aerosol 2 puffs, Inhalation, Every 4 hours, PRN NEEDED FOR WHEEZE, # 1 each, 5 Refills, Maintenance, 03/01/21 12:03:00 EDT, [facility]/pharmacy #1234, 2 puffs Inhalation Every 4 [...]
--- OUTSIDE RECORDS SUMMARY | 2024-03-09 07:31 | XMS_ITS | Continuity of Care Document ---
Author Organization [facility] Adult Address [address] [place] [address]- Care Team Providers Care Senior Managing Director Name Role Phone Fanny TOURE, Rhonda Primary Care Physician [facility] Date[facility]s): 11/18/21 - 12/18/21 [facility] [address] [place] [phone]- Allergies, Adverse Reactions, Alerts Substance Reaction Severity [...] # 8.5 each, 5 Refills, [facility], 17, INHALE 2 PUFFS EVERY 4 HOURS NEEDED FOR WHEEZING, 170, cm, 11/15/21 11:23:00 EDT, Height, 50, kg, 11/15/21 11:23:00 EDT, Dry Weight Start Date: 11/17/21 Status: Ordered amLODIPine 5 mg oral tablet 1 tablet, By Mouth, Daily, # 90 tablet, 0 Refills, [facility], 170, cm, 11/15/21 11:23:00 EDT,Height, 50, kg, [...] EVERY DAY, # 90 tablet, 1 Refills, [facility], 170, cm, 12/17/21 8:41:00 EDT, Height, 50, [...] 2 Refills, Maintenance, 09/24/21 11:18:00 EST, Cream, [facility]/pharmacy #1234, Partial fill upon patient request if the prescription is for a schedule II opioid drug., 1 application Topically 3 times a day,... Start Date: 09/24/21 Status: Ordered hydrocortisone topical 25 mg suppository 1 supp = 25 mg, Rectally, 2 times a day, # 28 supp, 0 Refills, Maintenance, 10/02/21 13:05:00 EDT, Suppository, [facility]/pharmacy #1234, Partial fill upon patient request if the prescription is for a schedule II opioid drug., 170, cm, 10/02/21 10:36:00 EDT... Start Date: 10/02/21 Stop Date: 10/16/21 Status: Ordered lisinopril 10 mg oral tablet 1, tablet, By Mouth, Daily, # 30 tablet, Refills 1, Route to Pharmacy Electronically, [facility] 47214, 170, cm, 12/05/21 10:11:00 EDT, Height, 50, kg, 11/15/21 11:23:00 EDT, Dry Weight Start Date: 12/13/21 Status: Ordered lisinopril 40 mg oral tablet See Instructions, TAKE 1 TABLET BY MOUTH EVERY DAY, # 90 tablet, 1 Refills, [facility] 34801, 170, cm, 12/17/21 8:41:00 EDT, Height, 50, kg, 11/15/21 11:23:00 EDT, Dry Weight Start Date: 12/17/21 Status: Ordered Nicotrol Inhaler 10 mg inhalation device See Instructions, use 6 cartridges per day, # 84 capsule, 0 Refills, Maintenance, 04/15/21 10:30:00EDT, [facility]/pharmacy #1234, Partial fill upon patient request if the prescription is for a schedule IIopioid drug., use 6 cartridges per day, 170, cm, 09... Start Date: 04/15/21 Status: Ordered oxyCODONE 10 mg oral tablet 1 tablet = 10 mg, By Mouth, Every 6 hours, PRN as needed for severe pain, # 120 tablet, 0 Refills, Maintenance, 12/17/21 10:05:00 EDT, Tablet, [facility]/pharmacy #1234, Partial fill upon patient request ifthe prescription is for a schedule II opioid drug.... Start Date: 12/17/21 Stop Date: 01/16/22 Status: Ordered OxyCONTIN 10 mg oral tablet, extended release 10 mg, 1, tablet, By Mouth, Every 12 hours, # 56 tablet, Refills 0, Tot. Refills 0, Maintenance, 12/13/21 10:46:00 EDT, Route to Pharmacy Electronically, [facility]/pharmacy #1234, in addition to his IR [...]
--- OUTSIDE RECORDS SUMMARY | 2024-03-09 07:31 | XMS_ITS | Continuity of Care Document ---
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 Phone Fanny TOURE, Rhonda Primary Care Physician [facility]): 12/31/21 - 01/30/22 [facility] [address] [place] [phone]- Attending Physician: AdmSam enriquez Admitting Physician: AdmtrSam [...] FOR WHEEZING, # 8.5 each, 5 Refills, [facility], 17, INHALE 2 PUFFS EVERY 4 HOURS NEEDED FOR WHEEZING, 170, cm, 11/15/21 11:23:00 EDT, Height, 50, kg, 11/15/21 11:23:00 EDT, Dry Weight Start Date: 11/17/21 Status: Ordered amLODIPine 5 mg oral tablet 1 tablet, By Mouth, Daily, # 90 tablet, 0 Refills, [facility], 170, cm, 11/15/21 11:23:00 EDT,Height, 50, kg, [...] EVERY DAY, # 90 tablet, 1 Refills, [facility] [address], 170, cm, 12/17/21 8:41:00 EDT, Height, 50, [...] ipratropium nasal 21 mcg/inh spray See Instructions, SPAY 2 SPRAYS INTO BOTH NARES 3 TIMES A DAY, NEEDED FOR CONGESTION, # 30 Unknown, 0 Refills, Acute 07/19/22 8:54:00 EST, 01/13/22 8:54:00 EDT, [facility]/pharmacy #1234, 30, SPAY 2 SPRAYS INTO BOTH NARES 3 TIMES A DAY, NEEDED FOR CHARLES... Start Date: 01/13/22 Stop Date: 07/19/22 Status: Ordered lisinopril 10 mg oral tablet 1, tablet, By Mouth, Daily, # 30 tablet, Refills 1, Route to Pharmacy Electronically, [facility] [address]50, 170, cm, 12/05/21 10:11:00 EDT, Height, 50, kg, 11/15/21 11:23:00 EDT, Dry Weight Start Date: 12/13/21 Status: Ordered lisinopril 40 mg oral tablet See Instructions, TAKE 1 TABLET BY MOUTH EVERY DAY, # 90 tablet, 1 Refills, [facility] 28453, 170, cm, 12/17/21 8:41:00 EDT, Height, 50, kg, 11/15/21 11:23:00 EDT, Dry Weight Start Date: 12/17/21 Status: Ordered Nicotrol Inhaler 10 mg inhalation device See Instructions, use 6 cartridges per day, # 84 capsule, 0 Refills, Maintenance, 04/15/21 10:30:00EDT, [facility]/pharmacy #1234, Partial fill upon patient request if the prescription is for a schedule IIopioid drug., use 6 cartridges per day, 170, cm, 09... Start Date: 04/15/21 Status: Ordered oxyCODONE 10 mg oral tablet 1 tablet = 10 mg, By Mouth, Every 6 hours, PRN as needed for severe pain, # 100 tablet, 0 Refills, Maintenance, 01/14/22 10:59:00 EDT, Tablet, [facility]/pharmacy #1234, Partial fill upon patient request ifthe prescription is for a schedule II opioid drug.... Start Date: 01/14/22 Stop Date: 02/08/22 Status: Ordered OxyCONTIN 10 mg oral tablet, extended release 10 mg, 1, tablet, By Mouth, Every 12 hours, # 60 tablet, Refills 0, Tot. Refills 0, Maintenance, 01/09/22 12:27:00 EDT, Route to Pharmacy Electronically, [facility]/pharmacy #[id number], in addition to his IR oxycodone, 170, [...]
--- OUTSIDE RECORDS SUMMARY | 2024-03-09 07:31 | XMS_ITS | Continuity of Care Document ---
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 Role Phone Fanny TOURE, Rhonda Primary Care Physician [phone] [facility]counter [facility]): 12/06/21 - 01/05/22 [facility] [address] [place] [phone]- Allergies, Adverse Reactions, Alerts Substance Reaction Severity [...] # 8.5 each, 5 Refills, [id number], 17, INHALE 2 PUFFS EVERY 4 HOURS NEEDED FOR WHEEZING, 170, cm, 11/15/21 11:23:00 EDT, Height, 50, kg, 11/15/21 11:23:00 EDT, Dry Weight Start Date: 11/17/21 Status: Ordered amLODIPine 5 mg oral tablet 1 tablet, By Mouth, Daily, # 90 tablet, 0 Refills, [facility], 170, cm, 11/15/21 11:23:00 EDT,Height, 50, kg, [...] EVERY DAY, # 90 tablet, 1 Refills, [facility] 76718, 170, cm, 12/17/21 8:41:00 EDT, Height, 50, [...] Maintenance, 09/24/21 11:18:00 EST, Cream, [facility]/pharmacy #[id number], Partial fill [...] Acute 01/19/22 17:07:00 EDT, 12/20/21 17:07:00 EDT, [facility]/pharmacy #1234, Partial fill upon patient request if the prescription is for a schedule II opioid drug., 2... Start Date: 12/20/21 Stop Date: 01/19/22 Status: Ordered lisinopril 10 mg oral tablet 1, tablet, By Mouth, Daily, # 30 tablet, Refills 1, Route to Pharmacy Electronically, [facility] STORE 60986, 170, cm, 12/05/21 10:11:00 EDT, Height, 50, kg, 11/15/21 11:23:00 EDT, Dry Weight Start Date: 12/13/21 Status: Ordered lisinopril 40 mg oral tablet See Instructions, TAKE 1 TABLET BY MOUTH EVERY DAY, # 90 tablet, 1 Refills, [facility] STORE [address]121, 170, cm, 12/17/21 8:41:00 EDT, Height, 50, kg, 11/15/21 11:23:00 EDT, Dry Weight Start Date: 12/17/21 Status: Ordered Nicotrol Inhaler 10 mg inhalation device See Instructions, use 6 cartridges per day, # 84 capsule, 0 Refills, Maintenance, 04/15/21 10:30:00EDT, [facility]/pharmacy #1234, Partial fill upon patient request if the prescription is for a schedule IIopioid drug., use 6 cartridges per day, 170, cm, 09... Start Date: 04/15/21 Status: Ordered oxyCODONE 10 mg oral tablet 1 tablet = 10 mg, By Mouth, Every 6 hours, PRN as needed for severe pain, # 120 tablet, 0 Refills, Maintenance, 12/17/21 10:05:00 EDT, Tablet, [facility]/pharmacy #1234, Partial fill upon patient request ifthe prescription is for a schedule II opioid drug.... Start Date: 12/17/21 Stop Date: 01/16/22 Status: Ordered OxyCONTIN 10 mg oral tablet, extended release 10 mg, 1, tablet, By Mouth, Every 12 hours, # 56 tablet, Refills 0, Tot. Refills 0, Maintenance, 12/13/21 10:46:00 EDT, Route to Pharmacy Electronically, [facility]/pharmacy #[id number], in addition to his IR oxycodone, 170, [...]
--- OUTSIDE RECORDS SUMMARY | 2024-03-09 07:31 | XMS_ITS | Continuity of Care Document ---
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 Start Date: 06/04/22 Status: Ordered albuterol CFC free 90 mcg/inh inhalation aerosol 1, puffs, Inhalation, 4 times a day, PRN, # 18 Gm, Refills 1, Tot. Refills 1, Maintenance, 10/21/2311:23:00 EDT, Aerosol, Route to Pharmacy Electronically, [id number], [facility]/pharmacy #1972, 170, cm, 08/05/22 8:05:00 EST, Heigh... Start Date: 10/20/22 Stop Date: 12/19/22 Status: Ordered amLODIPine 5 mg oral tablet 1 tablet, By Mouth, Daily, # 90 tablet, 1 Refills, Maintenance, 06/23/22 9:11:00 EST, [facility], 170, cm, 04/10/22 14:30:00 EDT, Height, 50, kg, 11/15/21 11:23:00 EDT, Dry Weight Start Date: 06/23/22 Status: Ordered Anusol-HC 2.5% cream with applicator 1 application, Rectally, 2 times a day, # 30 Gm, 1 Refills, Maintenance, 09/24/21 13:25:00 EST, Cream, [facility]/pharmacy #1234, Partial fill upon patient request if the prescription is for a schedule II opioid drug., 1 application Rectally 2 times a day, 1... Start Date: 09/24/21 Status: Ordered Anusol-HC 2.5% cream with applicator 1 application, Rectally, 2 times a day, # 30 Gm, 1 Refills, Maintenance, 06/27/21 14:24:00 EST, Cream, [facility]/pharmacy #1234, Partial fill upon patient request if the prescription is for a schedule II opioid drug., 1 application Rectally 2 times a day, 1... Start Date: 06/27/21 Status: Ordered atorvastatin 20 mg oral tablet See Instructions, TAKE 1 TABLET BY MOUTH EVERY DAY, # 90 tablet, 1 Refills, Maintenance, 08/05/22 7:46:00 EST, [facility] STORE [id number], 170, cm, 08/05/22 7:32:00 EST, Height, 50, kg, 11/15/21 11:23:00 EDT, Dry Weight Start Date: 08/05/22 Status: Ordered atorvastatin 20 mg oral tablet 1 tablet = 20 mg, By Mouth, Daily, # 30 tablet, 5 Refills, Maintenance, 11/17/21 19:20:00 EDT, [facility] Partial fill upon patient request if the prescription is for a schedule II opioid drug., 170, cm, 11/15/21 11:23:00 EDT, Height,... Start Date: 11/17/21 Status: Ordered atorvastatin 20 mg oral tablet 1 tablet = 20 mg, By Mouth, Daily, for 90 days, # 90 tablet, 1 Refills, Physician Stop 12/15/22 11:17:00 EDT, 06/18/22 11:17:00 EST, [facility]/pharmacy #1234, 170, cm, 04/10/22 14:30:00 [...] DAY NEEDED FOR CONGESTION, # 90 Unknown, 0 Refills, Maintenance, 10/20/22 9:54:00 EDT, [facility], INSTILL 2 SPRAYS INTO EACHNOSTRIL 3 TIMES A DAY NEEDED FOR CONGESTION, 170... Start Date: 10/20/22 Status: Ordered ipratropium nasal 21 mcg/inh spray See Instructions, INSTILL 2 SPRAYS INTO EACH NOSTRIL 3 TIMES A DAY NEEDED FOR CONGESTION, # 90 Unknown, 0 Refills, Maintenance, 10/20/22 9:05:00 EDT, [facility], 90, INSTILL 2 SPRAYS INTO EACH NOSTRIL 3 TIMES A DAY NEEDED FOR CONGESTION,... Start Date: 10/20/22 Status: Ordered lisinopril 10 mg oral tablet 1, tablet, By Mouth, Daily, # 90 tablet, Refills 1, Maintenance, 08/25/22 11:40:00 EST, Route to Pharmacy Electronically, [facility] STORE [id number], 170, cm, 08/05/22 8:05:00 EST, Height, 50, [...] PRN as needed for severe pain, fill 11/13/22, # 112 tablet, 0 Refills, Maintenance, 11/11/22 7:29:00 EDT, Tablet, [facility]/pharmacy #1972, Partial fill upon patient request if the prescription is for a schedule II... Start Date: 11/11/22 Stop Date: 12/09/22 Status: Ordered OxyCONTIN 10 mg oral tablet, extended release 10 mg, 1, tablet, By Mouth, Every 12 hours, fill 11/13/22, # 56 tablet, Refills 0, Tot. Refills 0, Maintenance, 11/11/22 7:29:00 EDT, Route to Pharmacy Electronically, [facility]/pharmacy #1972, in addition to his IR oxycodone, 170, cm, 08/05/22 8:05:00 EST,... Start Date: 11/11/22 Stop Date: 12/09/22 Status: Ordered Problem List Condition Confirmation Course [...] NP Position: [facility] PCO Associate Professional Member Role: PCP Address: Address: [address] [place] [address], [address] [place] [address]- Name: Lisa Awad RN Position: [facility] RN Member Role: Primary Care Nurse Name: Elly Rodriges RN Position: [facility] RN Member Role: Primary Care Nurse Care Team Related Persons Name: DIOP CHARLINE Address: [place] [address] Name: ELDER ANDERSON Address: home [address] [place] [address] Name: MAEGAN ANDERSON Address: home [address] [place] [address]
--- OUTSIDE RECORDS SUMMARY | 2024-03-09 07:31 | XMS_ITS | Continuity of Care Document ---
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 Start Date: 05/18/23 Status: Ordered amLODIPine 5 mg oral tablet 1 tablet, By Mouth, Daily, # 90 tablet, 1 Refills, Maintenance, 06/09/23 9:12:00 EST, [facility], 170, cm, 06/03/23 14:00:00 EST, Height, 51, kg, 06/03/23 14:00:00 EST, Dry Weight Start Date: 06/09/23 Status: Ordered celecoxib 200 mg oral capsule 1 capsule = 200 mg, By Mouth, 2 times a day, # 14 capsule, 0 Refills, Maintenance, 06/04/23 13:40:00 EST, Capsule, [facility], Partial fill upon patient request if the prescription is for a schedule II opioid drug., 170, cm, 06/03/23 14:... Start Date: 06/04/23 Stop Date: 06/11/23 Status: Ordered cholecalciferol 50,000 intl units oral capsule 1 capsule = 50,000 International_Units, By Mouth, Every 7 days, # 13 capsule, 3 Refills, Maintenance, 02/08/23 9:24:00 EDT, Capsule, [facility]/pharmacy #1972, Partial fill upon patient request, [...] 06/04/23 13:40:00 EST, Route to Pharmacy Electronically, [facility], Partial fill uponpatient request [...] Unknown, 5 Refills, Maintenance, 12/11/22 19:25:00 EDT, [facility] ST[facility] 42155, 90, INSTILL 2 SPRAYS INTO EACH NOSTRIL 3 TIMES A DAY NEEDED FOR CONGESTION, 1... Start Date: 12/11/22 Status: Ordered metoprolol 25 mg oral tablet 12.5 mg, 0.5, tablet, By Mouth, Every 12 hours, # 30 tablet, Refills 0, Tot. 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 Refills 0, Maintenance, 05/24/23 8:17:00 EST, Route to [facility], [facility], [...] use disorder Confirmed Active Underweight Confirmed Active 21053 r lung wedge resection Social History Social History Type Response Tobacco Use: 4 or less cigar ettes(less than 1/4 pack)/day in last 30 days. Other: 2-3 cig/d x 40 years; was at 0.5 pp/d. Sex Patient Care team information Care Team Personnel Name: Aurelia Yang RN Position: S RN Member Role: Primary Care Nurse Name: Rhonda Escobedo NP Position: [facility] PCO Associate Professional Member Role: PCP Address: Address: [address], [address]rd [place] [address]- Name: Yue Delgado RN Position: [facility] RN Member Role: Primary Care Nurse Name: Debo Gagnon Position: S RN Member Role: Primary Care Nurse Name: Lisa Awad RN Position: S RN Member Role: Primary Care Nurse Name: Elly Rodriges RN Position: [facility] SN RN Member Role: Primary Care Nurse Name: Nilda Pop RN Position: S RN Member Role: Primary Care Nurse Care Team Related Persons Name: JADON CHARLINE Address: [place] [address] Name: ELDER ANDERSON Address: home [address] [place] [address] Name: MAEGAN ANDERSON Address: home [address] [place] [address]
--- OUTSIDE RECORDS SUMMARY | 2024-03-09 07:31 | XMS_ITS | Continuity of Care Document ---
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 Start Date: 05/18/23 Status: Ordered amLODIPine 5 mg oral tablet 1 tablet, By Mouth, Daily, # 90 tablet, 1 Refills, Maintenance, 06/09/23 9:12:00 EST, [facility], 170, cm, 06/03/23 14:00:00 EST, Height, 51, kg, 06/03/23 14:00:00 EST, Dry Weight Start Date: 06/09/23 Status: Ordered celecoxib 200 mg oral capsule 1 capsule = 200 mg, By Mouth, 2 times a day, # 14 capsule, 0 Refills, Maintenance, 06/04/23 13:40:00 EST, Capsule, [facility], Partial fill upon patient request if the prescription is for a schedule II opioid drug., 170, cm, 06/03/23 14:... Start Date: 06/04/23 Stop Date: 06/11/23 Status: Ordered cholecalciferol 50,000 intl units oral capsule 1 capsule = 50,000 International_Units, By Mouth, Every 7 days, # 13 capsule, 3 Refills, Maintenance, 02/08/23 9:24:00 EDT, Capsule, [facility]/pharmacy #[id number], Partial fill upon patient request, [...] 06/04/23 13:40:00 EST, Route to Pharmacy Electronically, [facility], Partial fill uponpatient request [...] Unknown, 5 Refills, Maintenance, 12/11/22 19:25:00 EDT, [facility] STORE 12345, 90, INSTILL 2 SPRAYS INTO EACH NOSTRIL 3 TIMES A DAY NEEDED FOR CONGESTION, 1... Start Date: 12/11/22 Status: Ordered metoprolol 25 mg oral tablet 12.5 mg, 0.5, tablet, By Mouth, Every 12 hours, # 30 tablet, Refills 0, Tot. 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 Refills 0, Maintenance, 05/24/23 8:17:00 EST, Route to Pharmacy Electronically, [facility]/pharmacy #1972, Partial fill upon patient request [...] use disorder Confirmed Active Underweight Confirmed Active 07000 r lung wedge resection Social History Social History Type Response Tobacco Use: 4 or less cigar ettes(less than 1/4 pack)/day in last 30 days. Other: 2-3 cig/d x 40 years; was at 0.5 pp/d. Sex Patient Care team information Care Team Personnel Name: Aurelia Yang RN Position: [facility] RN Member Role: Primary Care Nurse Name: Rhonda Escobedo NP Position: [facility] PCO Associate Professional Member Role: PCP Address: Address: [address] [facility], [address] [place] [address]- Name: Yue Delgado RN Position: [facility] RN Member Role: Primary Care Nurse Name: Debo Gagnon Position: [facility] RN Member Role: Primary Care Nurse Name: Lisa Awad RN Position: [facility] RN Member Role: Primary Care Nurse Name: Elly Rodriges RN Position: [facility] SN RN Member Role: Primary Care Nurse Name: Nilda Pop RN Position: [facility] RN Member Role: Primary Care Nurse Care Team Related Persons Name: JONI DIOPNIFER Address: [place] [address] Name: ELDER ANDERSON Address: home [address] [place] [address] Name: MAEGAN ANDERSON Address: home [address] [place] [address]
--- OUTSIDE RECORDS SUMMARY | 2024-03-09 07:31 | XMS_ITS | Continuity of Care Document ---
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 Role Phone Chaim Templeton MD Primary Care Physician Encounter [facility] [id number] Date(s): 07/08/19 - 08/11/19 [facility] [address] [place] [address]- [facility] Attending Physician: Izabela Pat MD Admitting Physician: Izabela Pat MD Referring Physician: Harjit Lee MD Allergies, Adverse Reactions, Alerts Substance Reaction [...] 07/14/19 10:49:00 EST, Route to Pharmacy Electronically, [facility]/pharmacy #[id number], 170, cm, 07/04/19 9:01:00 EST, Height, 59.4, kg, 04/07/19 15:15:00 EDT, Dry Weight Start Date: 07/14/19 Status: Ordered meloxicam 7.5 mg oral tablet 1 tablet = 7.5 mg, By Mouth, Daily, # 30 tablet, 0 Refills, Maintenance, 07/05/19 14:48:36 EST, Tablet, [facility]/pharmacy #1234, 170, cm, 07/04/19 9:01:50 EST, Height, [...] Replace Required Details, Route to Pharmacy Electronically, [id number]... Start Date: 04/19/19 Status: Ordered Suboxone 8 [...]
--- OUTSIDE RECORDS SUMMARY | 2024-03-09 07:31 | XMS_ITS | Continuity of Care Document ---
Author Organization [facility] Adult Address [address] [place] [address]- Care Team Providers Care Anesthesiology Physician Name Role Phone Fanny TOURE, Rhonda Primary Care Physician Encounter [facility] [place] Date(s): 10/19/23 - 10/26/23 [facility] [address] [place] [address]- Encounter Diagnosis RUQ pain(Discharge Diagnosis) - 10/19/23 COPD (chronic obstructive pulmonary disease)(Discharge Diagnosis) - 10/21/23 Attending Physician: Not on Staff, Attending MD [...] each, 5 Refills, Maintenance, 09/20/23 21:34:00 EST, [facility]/pharmacy #1972, 25, 1 puffs Inhalation 4 times a day,PRN: NEEDED FOR COUGH, 170, cm, 09/17/23 8:42:00 EST, Height, 51, kg, 11... Start Date: 09/20/23 Status: Ordered amLODIPine 5 mg oral tablet 1 tablet, By Mouth, Daily, # 90 tablet, 1 Refills, Maintenance, 06/09/23 9:12:00 EST, [id number], 170, cm, 06/03/23 14:00:00 EST, Height, 51, kg, 06/03/23 14:00:00 EST, Dry Weight Start Date: 06/09/23 Status: Ordered atorvastatin 20 mg oral tablet 1 tablet, By Mouth, Daily, # 90 tablet, 1 Refills, Maintenance, 07/29/23 9:02:00 EST, [facility], 170, cm, 06/23/23 10:13:00 EST, Height, 51, kg, 06/03/23 14:00:00 EST, Dry Weight Start Date: 07/29/23 Status: Ordered celecoxib 200 mg oral capsule 1 capsule = 200 mg, By Mouth, 2 times a day, # 14 capsule, 0 Refills, Maintenance, 06/04/23 13:40:00 EST, Capsule, [facility], Partial fill upon patient request if the prescription is for a schedule II opioid drug., 170, cm, 06/03/23 14:... Start Date: 06/04/23 Stop Date: 06/11/23 Status: Ordered cholecalciferol 50,000 intl units oral capsule 1 capsule = 50,000 International_Units, By Mouth, Every 7 days, # 13 capsule, 3 Refills, Maintenance, 02/08/23 9:24:00 EDT, Capsule, [facility]/pharmacy #1972, Partial fill upon patient [...] 13:40:00 EST, Route to Pharmacy Electronically, [facility], Partial fill uponpatient request [...] Refills, Maintenance, 12/11/22 19:25:00 EDT, [facility], 90, INSTILL 2 SPRAYS INTO EACH NOSTRIL 3 TIMES A DAY NEEDED FOR CONGESTION, 1... Start Date: 12/11/22 Status: Ordered lisinopril 10 mg oral tablet 1, tablet, By Mouth, Daily, # 90 tablet, Refills 1, Maintenance, 09/07/23 9:20:00 EST, Route to Pharmacy Electronically, [facility], 170, cm, 07/29/23 14:04:00 EST, Height, 51, kg, 06/03/23 14:00:00 EST, Dry Weight Start Date: 09/07/23 Status: Ordered metoprolol 25 mg oral tablet 12.5 mg, 0.5, tablet, By Mouth, Every 12 hours, # 30 tablet, Refills 0, Tot. Refills 0, Maintenance, 06/04/23 13:43:00 EST, Route to Pharmacy Electronically, [facility], Partial fill upon patient request if the prescription is for a sche... Start Date: 06/04/23 Stop Date: 07/04/23 Status: Ordered nicotine 14 mg/24 hr transdermal film, extended release 1 patch, Topically, Daily, # 28 patch, 0 Refills, Maintenance, 07/27/23 14:23:00 EST, [facility] STORE 63538, 28, APPLY 1 PATCH TOPICALLY DAILY, 170, cm, 06/23/23 10:13:00 EST, Height, 51, kg, 06/03/23 14:00:00 EST, Dry Weight Start Date: 07/27/23 Status: Ordered oxyCODONE 10 mg oral tablet 1 tablet = 10 mg, By Mouth, Every 6 hours, PRN as needed for pain, cable weaver assessed fill 10/13/23, # 112tablet, 0 Refills, Maintenance, 10/12/23 17:07:00 EDT, Tablet, [facility]/pharmacy #1972, Partial fill upon patient request if the prescription is for a sched... Start Date: 10/12/23 Stop Date: 11/09/23 Status: Ordered OxyCONTIN 20 mg oral tablet, extended release 20 mg, 1, tablet, By Mouth, Every 12 hours, cable weaver chacked fill 10/13/23, # 56 tablet, Refills 0, Tot. Refills 0, Maintenance, 10/12/23 17:07:00 EDT, Route to Pharmacy Electronically, [facility]/pharmacy #1972,Partial fill upon patient request [...] Confirmed Active Tobacco use disorder Confirmed Active 85782 r lung wedge resection Diagnosis Diagnosis Type Effective Dates Health Status Clinical Service Informant RUQ pain Discharge Diagnosis 10/19/23 COPD (chronic obstructive pulmonary disease) Discharge Diagnosis 10/21/23 Vital Signs Most recent to oldest [Reference Range]: 1 2 Height 170 cm (10/19/23 1:26 PM) 170 cm (10/19/23 1:18 PM) Weight 54.0 kg (10/19/23 1:18 PM) Oxygen Saturation [94-100 %] 98 % (10/19/23 1:18 PM) Pulse Rate [55-90 bpm] 58 bpm (10/19/23 1:18 PM) Body Mass Index [18.5-24.99 kg/m2] 18.69 kg/m2 (10/19/23 1:18 PM) Blood Pressure [90-138/55-84 mm Hg] 112/ 66mm Hg (10/19/23 1:26 PM) 142/69mm Hg *H* (10/19/23 1:18 PM) Mode of Delivery (Oxygen) Room air (10/19/23 1:18 PM) Blood pressure sites Arm, left (10/19/23 1:26 PM) Arm, left (10/19/23 1:18 PM) Weight Obtained Via Standing scale (10/19/23 1:18 PM) Social History Social History Type Response Smoking Status Former smoker, quit more than 30 days ago; Total pack years: 45; entered on: 09/17/23 Sex Note * Sherlyn Camejo: PERFORM, SIGN, VERIFY Event Display: Patient Education/Instruction Authored Date: [id number] [facility] *BMP [place] [facility] Clinical Summary Name MIREYA ANDERSON Age 68 Years 1955 PCP Rhonda Escobedo NP PCP Visit Date 10/19/2023 13:06:00 Additional Instructions: Scheduled Appointments?? Future Appointments ?*[facility] [address] ?[place],??[place],??[address] ?Phone:??[phone]?Fax:??-- ?Appt. Date:??01/04/2024?10:00 AM ?Scheduled Provider:??Tha Ga DO Follow-Up Instructions ?? Diagnosis Right upper quadrant pain Medications: Please continue your medications until treatment [...] NEEDED FOR CONGESTION. Refills: 5. Next Dose: Lisinopril (lisinopril 10 mg oral tablet) 1 tab(s) Oral Daily. Refills: 1. Next Dose: Metoprolol (metoprolol 25 mg oral tablet) 0.5 tab(s) Oral every 12 hours for 30 Days. Refills: 0. Next Dose: Miscellaneous Rx (Ensure) 3 cans daily to maintain weight. Equal numbers chocolate and strawberry. Dx achalasia. Refills: 5. Next Dose: Nicotine (nicotine 14 mg/24 hr transdermal film, extended release) 1 patch(es) Topically Daily. Refills: 0. Next Dose: Oxycodone (oxyCODONE 10 mg oral tablet) 1 tab(s) Oral every 6 hours as needed as needed for pain for 28 Days. cable weaver assessed fill 10/13/23. Refills: 0. Next Dose: Oxycodone (OxyCONTIN 20 mg oral tablet, extended release) 1 tab(s) Oral every 12 hours for 28 Days.cable weaver chacked fill 10/13/23. Refills: 0. Next Dose: Allergy Info:?? morphine Medications Given This Visit Future Orders ?US RUQ? Order Date:10/19/23?- Complete on or after?10/19/23 Future Orders ?US RUQ? Order Date:10/19/23?- Complete on or after?10/19/23 Vital Signs Height 170 cm Weight 54.0 kg BMI 18.69 kg/m2 Blood Pressure 112 mm Hg/66 mm Hg Temperature Pulse Rate 58 bpm Respiratory Rate 02 Sat Mode of Delivery 98 %/Room air You can now view a summary of your hospital visit from the comfort of your home through a free online portal called [employer]. [employer] is a website that allows you to securely view your medical information including discharge summary, medications and follow-up visits. ??You can alsosend a secure electronic message to your doctor???s office to request appointments, renew medications or just ask a question. You can enroll at [email or web address] or register during your next office visit. [...] primary care provider, you may find a [facility] provider by calling [facility] Link at [phone]. [facility], in keeping with [facility] guidance, no longer requires face masks [...] Care Nurse Name: Rhonda Escobedo NP Position: [facility] PCO Associate Professional Member Role: PCP Address: Address: [address] [place] [address], [address] [place], [place] [address] Name: Yue Delgado RN Position: S RN Member Role: Primary Care Nurse Name: Debo Gagnon Position: S RN Member Role: Primary Care Nurse Name: Lisa Awad RN Position: S RN Member Role: Primary Care Nurse Name: Elly Rodriges RN Position: [facility] RN Member Role: Primary Care Nurse Name: Nilda Pop RN Position: S RN Member Role: Primary Care Nurse Care Team Related Persons Name: CHARLINE DIOP Address: [place] [address] Name: ELDER ANDERSON Address: home [address] [place] [address] Name: MAEGAN ANDERSON Address: home [address] [place] [address]
--- OUTSIDE RECORDS SUMMARY | 2024-03-09 07:31 | XMS_ITS | Continuity of Care Document ---
Author Organization [facility] Address Unknown Care Team Providers Care Operational Test Mechanic Name Role Phone Tonja TOURE, Jeannette Olivera Primary Care Physicia n [place] [facility] [place]s): 07/24/21 - 08/23/21 [facility] Allergies, Adverse Reactions, Alerts Substance [...] Refills, Maintenance, 06/27/21 14:24:00 EST, Cream, [facility]/pharmacy #1234, Partial fill upon patient request if the prescription is for a schedule II opioid drug., 1 application Rectally 2 times a day, 1... Start Date: 06/27/21 Status: Ordered atorvastatin 20 mg oral tablet 1 tablet = 20 mg, By Mouth, Daily, # 30 tablet, 5 Refills, Maintenance, 06/19/21 8:09:00 EST, Tablet, [facility]/pharmacy #1234, Partial fill upon patient request [...] 5 Refills, Maintenance, 07/03/21 10:04:00 EST, Tablet, [facility]/pharmacy #1234, Partial fill upon patient request [...]
--- OUTSIDE RECORDS SUMMARY | 2024-03-09 07:31 | XMS_ITS | Continuity of Care Document ---
Author Organization [facility] Adult Address [address] [place] [address]- Care Team Providers Care Dairy Nutrition Consultant Name Role Phone Tonja TOURE, Jeannette Olivera Primary Care Physicia n Encounter [facility] [place] Date(s): 06/28/21 - 07/28/21 [facility] [address] [place] [address]- [place] Allergies, Adverse Reactions, Alerts Substance Reaction [...] 1 Refills, Maintenance, 06/27/21 14:24:00 EST, Cream, [facility]/pharmacy #1234, Partial fill upon patient request if the prescription is for a schedule II opioid drug., 1 application Rectally 2 times a day, 1... Start Date: 06/27/21 Status: Ordered Anusol-HC 2.5% cream with applicator 1 application, Rectally, 2 times a day, # 30 Gm, 1 Refills, Maintenance, 06/27/21 14:24:00 EST, Cream, [facility]/pharmacy #1234, Partial fill upon patient request if the prescription is for a schedule II opioid drug., 1 application Rectally 2 times a day, 1... Start Date: 06/27/21 Status: Ordered atorvastatin 20 mg oral tablet 1 tablet = 20 mg, By Mouth, Daily, # 30 tablet, 5 Refills, Maintenance, 06/19/21 8:09:00 EST, Tablet, [facility]/pharmacy #1234, Partial fill upon patient [...] 5 Refills, Maintenance, 07/03/21 10:04:00 EST, Tablet, [facility]/pharmacy #1234, Partial fill upon patient [...]
--- OUTSIDE RECORDS SUMMARY | 2024-03-09 07:31 | XMS_ITS | Continuity of Care Document ---
Author Organization [facility] Adult Address [address] [place] [address]- Care Team Providers Care Ssrs Developer Name Role Phone Fanny TOURE, Rhonda Primary Care Physician Encounter [facility] Date(s): 03/31/23 - 04/30/23 [facility] [address] [place] [address]- Allergies, Adverse Reactions, Alerts Substance Reaction Severity [...] 1 Refills, Maintenance, 12/04/22 8:21:00 EDT, [facility]/pharmacy #1972, 170, cm, 08/05/22 8:05:00 EST, Height, 50, kg, 11/15/21 11:23:00 EDT, Dry Weight Start Date: 12/04/22 Status: Ordered Anusol-HC 2.5% cream with applicator 1 application, Rectally, 2 times a day, # 30 Gm, 1 Refills, Maintenance, 09/24/21 13:25:00 EST, Cream, [facility]/pharmacy #1234, Partial fill upon patient request if the prescription is for a schedule II opioid drug., 1 application Rectally 2 times a day, 1... Start Date: 09/24/21 Status: Ordered Anusol-HC 2.5% cream with applicator 1 application, Rectally, 2 times a day, # 30 Gm, 1 Refills, Maintenance, 06/27/21 14:24:00 EST, Cream, [facility]/pharmacy #1234, [...] 06/13/23 11:17:00 EST, 12/15/22 11:17:00 EDT, [facility]/pharmacy #1972, 170, cm, 08/05/22 8:05:00 EST, Height, 50, kg,11/15/21 11:23:00 EDT, Dry Weight Start Date: 12/15/22 Stop Date: 06/13/23 Status: Ordered atorvastatin 20 mg oral tablet See Instructions, TAKE 1 TABLET BY MOUTH EVERY DAY, # 90 tablet, 1 Refills, Maintenance, 08/05/22 7:46:00 EST, [facility], 170, cm, 08/05/22 7:32:00 EST, Height, 50, [...] 0 Refills, Maintenance, 10/02/21 13:05:00 EDT, Suppository, [facility]/pharmacy #1234, [...] Refills, Maintenance, 12/11/22 19:25:00 EDT, [facility], 90, INSTILL 2 SPRAYS INTO EACH NOSTRIL 3 TIMES A DAY NEEDED FOR CONGESTION, 1... Start Date: 12/11/22 Status: Ordered lisinopril 10 mg oral tablet See Instructions, TAKE 1 TABLET BY MOUTH EVERY DAY, # 90 tablet, Refills 0, Maintenance, 02/06/23 8:55:00 EDT, Instructions Replace Required Details, Route to Pharmacy Electronically, [facility] STORE 61066, 170, cm, 08/05/22 8:05:00 EST, Height, 50, kg, ... Start Date: 02/06/23 Status: Ordered lisinopril 10 mg oral tablet 1, tablet, By Mouth, Daily, # 90 tablet, Refills 0, Tot. Refills 0, Maintenance, 02/05/23 15:07:00 EDT, Route to Pharmacy Electronically, [facility]/pharmacy #1972, 170, cm, 08/05/22 8:05:00 EST, [...] tablet, By Mouth, Every 6 hours, PRN, RECONNAISSANCE CREWMEMBER checked. Fill on 04/30/23, # 224 tablet, Refills 0, Tot. Refills 0, Maintenance, as needed for pain, 04/24/23 8:29:00 EDT, Route to Pharmacy Electronically, [facility]/pharmacy #1972, Partial fill upon chandrika... Start Date: 04/24/23 Stop Date: 05/22/23 Status: Ordered OxyCONTIN 10 mg oral tablet, extended release 10 mg, 1, tablet, By Mouth, Every 12 hours, RECONNAISSANCE CREWMEMBER checked. Fill on 04/30/23, # 56 tablet, Refills 0, Tot. Refills 0, Maintenance, 04/24/23 8:29:00 EDT, Route to Pharmacy Electronically, [facility]/pharmacy #1972, in addition to his IR oxycodone, 170, cm, 02/06... Start Date: 04/24/23 Stop Date: 05/22/23 Status: Ordered Ventolin HFA 108 mcg/inh inhalation aerosol with adapter See Instructions, INHALE 1 PUFF 4 TIMES A DAY NEEDED FOR COUGH, # 18 each, 5 Refills, Maintenance, 12/11/22 19:25:00 EDT, [facility], 170, cm, 08/05/22 8:05:00 EST, Height, 50, [...] Associate Professional Member Role: PCP Address: Address: [address] [place] [address], [address] Floor [facility] [place] [address]- Name: Lisa Awad RN Position: S RN Member Role: Primary Care Nurse Name: Elly Rodriges RN Position: [facility] SN RN Member Role: Primary Care Nurse Care Team Related Persons Name: DIOP CHARLINE Address: [place] [address] Name: ELDER ANDERSON Address: home [address] [place] [address] Name: MAEGAN ANDERSON Address: home [address] [place] [address]
--- OUTSIDE RECORDS SUMMARY | 2024-03-09 07:31 | XMS_ITS | Continuity of Care Document ---
Author Organization [facility] Address [address] [place] [address]- Care Team Providers Care Broadcasting Equipment Mechanic Name Role Phone Fanny TOURE, Rhonda Primary Care Physician Encounter [facility] Date(s): 04/15/23 - 05/15/[address] [facility] [address] [place] [address]- Allergies, Adverse Reactions, Alerts Substance Reaction Severity [...] tablet, 1 Refills, Maintenance, 12/04/22 8:21:00 EDT, [facility]/pharmacy #1972, 170, cm, 08/05/22 8:05:00 EST, Height, 50, kg, 11/15/21 11:23:00 EDT, Dry Weight Start Date: 12/04/22 Status: Ordered Anusol-HC 2.5% cream with applicator 1 application, Rectally, 2 times a day, # 30 Gm, 1 Refills, Maintenance, 09/24/21 13:25:00 EST, Cream, [facility]/pharmacy #1234, Partial fill upon patient request if the prescription is for a schedule II opioid drug., 1 application Rectally 2 times a day, 1... Start Date: 09/24/21 Status: Ordered Anusol-HC 2.5% cream with applicator 1 application, Rectally, 2 times a day, # 30 Gm, 1 Refills, Maintenance, 06/27/21 14:24:00 EST, Cream, [facility]/pharmacy #1234, Partial fill upon patient request if the prescription is for a schedule II opioid drug., 1 application Rectally 2 times a day, 1... Start Date: 06/27/21 Status: Ordered atorvastatin 20 mg oral tablet 1 tablet, By Mouth, Daily, # 90 tablet, 1 Refills, Maintenance, 05/01/23 7:04:00 EDT, [facility], 170, cm, 02/06/23 9:02:00 EDT, Height, 50, [...] 3 Refills, Maintenance, 02/08/23 9:24:00 EDT, Capsule, [facility]/pharmacy #1972, Partial fill upon patient request, [...] 2 Refills, Maintenance, 09/24/21 11:18:00 EST, Cream, [facility]/pharmacy #1234, Partial fill upon patient request if the prescription is for a schedule II opioid drug., 1 application Topically 3 times a day,... Start Date: 09/24/21 Status: Ordered hydrocortisone topical 25 mg suppository 1 supp = 25 mg, Rectally, 2 times a day, # 28 supp, 0 Refills, Maintenance, 10/02/21 13:05:00 EDT, Suppository, [facility]/pharmacy #1234, Partial fill upon patient request if the prescription is for a schedule II opioid drug., 170, cm, 10/02/21 10:36:00 EDT... Start Date: 10/02/21 Stop Date: 10/16/21 Status: Ordered ipratropium nasal 21 mcg/inh spray See Instructions, INSTILL 2 SPRAYS INTO EACH NOSTRIL 3 TIMES A DAY NEEDED FOR CONGESTION, # 60 Unknown, 5 Refills, Maintenance, 12/11/22 19:25:00 EDT, [facility] STORE 81297, 90, INSTILL 2 SPRAYS INTO EACH NOSTRIL 3 TIMES A DAY NEEDED FOR CONGESTION, 1... Start Date: 12/11/22 Status: Ordered lisinopril 10 mg oral tablet 1, tablet, By Mouth, Daily, # 90 tablet, Refills 1, Maintenance, 05/01/23 7:04:00 EDT, Route to Pharmacy Electronically, [facility] STORE 29206, 170, cm, 02/06/23 9:02:00 EDT, Height, 50, kg, 11/15/21 11:23:00 EDT, Dry Weight Start Date: 05/01/23 Status: Ordered Nicotrol Inhaler 10 mg inhalation device See Instructions, USE 6 CARTRIDGES PER DAY, # 168 Unknown, 0 Refills, Maintenance, 02/03/22 9:21:00EDT, [facility]/pharmacy #1234, 28, USE 6 CARTRIDGES PER DAY, 170, cm, 12/31/21 8:21:00 EDT, Height, 50, kg, 11/15/21 11:23:00 EDT, Dry Weight Start Date: 02/03/22 Status: Ordered oxyCODONE 5 mg oral tablet 10 mg, 2, tablet, By Mouth, Every 6 hours, PRN, SEWING TECHNIQUES DEMONSTRATOR checked. Fill on 04/30/23, # 224 tablet, Refills 0, Tot. Refills 0, Maintenance, as needed for pain, 04/24/23 8:29:00 EDT, Route to Pharmacy Electronically, [facility]/pharmacy #1972, Partial fill upon chandrika... Start Date: 04/24/23 Stop Date: 05/22/23 Status: Ordered OxyCONTIN 10 mg oral tablet, extended release 10 mg, 1, tablet, By Mouth, Every 12 hours, SEWING TECHNIQUES DEMONSTRATOR checked. Fill on 04/30/23, # 56 tablet, Refills 0, Tot. Refills 0, Maintenance, 04/24/23 8:29:00 EDT, Route to Pharmacy Electronically, [facility]/pharmacy #1972, in addition to his IR oxycodone, 170, cm, 02/06... Start Date: 04/24/23 Stop Date: 05/22/23 Status: Ordered Ventolin HFA 108 mcg/inh inhalation aerosol with adapter See Instructions, INHALE 1 PUFF 4 TIMES A DAY NEEDED FOR COUGH, # 18 each, 5 Refills, Maintenance, 12/11/22 19:25:00 EDT, [facility], 170, cm, 08/05/22 8:05:00 EST, Height, 50, [...] Professional Member Role: PCP Address: Address: [address] [place] [address], [address] [place] [address]- Name: Lisa Awad RN Position: [facility] RN Member Role: Primary Care Nurse Name: Elly Rodriges RN Position: [facility] RN Member Role: Primary Care Nurse Care Team Related Persons Name: CHARLINE DIOP Address: [place] [address] Name: ELDER ANDERSON Address: home [address] [place] [address] Name: MAEGAN ANDERSON Address: home [address] [place] [address]
--- OUTSIDE RECORDS SUMMARY | 2024-03-09 07:32 | XMS_ITS | Continuity of Care Document ---
Author Organization [facility] Address Unknown Care Team Providers Care Tool Shaper Setup Operator Name Role Phone Fanny TOURE, Rhonda Primary Care Physician [phone] Encounter [facility] Date(s): 11/04/21 - 01/01/22 [facility] Attending Physician: Breann TOURE, Chasidy [place] Referring Physician: Rhonda Escobedo NP Allergies, Adverse [...] # 8.5 each, 5 Refills, [facility], 17, INHALE 2 PUFFS EVERY 4 HOURS NEEDED FOR WHEEZING, 170, cm, 11/15/21 11:23:00 EDT, Height, 50, kg, 11/15/21 11:23:00 EDT, Dry Weight Start Date: 11/17/21 Status: Ordered amLODIPine 5 mg oral tablet 1 tablet, By Mouth, Daily, # 90 tablet, 0 Refills, [facility], 170, cm, 11/15/21 11:23:00 EDT,Height, 50, kg, [...] EVERY DAY, # 90 tablet, 1 Refills, [facility], 170, cm, 12/17/21 8:41:00 EDT, Height, 50, [...] 2 Refills, Maintenance, 09/24/21 11:18:00 EST, Cream, [facility]/pharmacy #1234, Partial fill upon patient request if the prescription is for a schedule II opioid drug., 1 application Topically 3 times a day,... Start Date: 09/24/21 Status: Ordered hydrocortisone topical 25 mg suppository 1 supp = 25 mg, Rectally, 2 times a day, # 28 supp, 0 Refills, Maintenance, 10/02/21 13:05:00 EDT, Suppository, [facility]/pharmacy #1234, Partial fill upon patient request if the prescription is for a schedule II opioid drug., 170, cm, 10/02/21 10:36:00 EDT... Start Date: 10/02/21 Stop Date: 10/16/21 Status: Ordered ipratropium nasal 21 mcg/inh spray 2 sprays, Nares, Both, 3 times a day, PRN as needed for congestion, # 1 each, 0 Refills, Acute 01/19/22 17:07:00 EDT, 12/20/21 17:07:00 EDT, [facility]/pharmacy #1234, Partial fill upon patient request if the prescription is for a schedule II opioid drug., 2... Start Date: 12/20/21 Stop Date: 01/19/22 Status: Ordered lisinopril 10 mg oral tablet 1, tablet, By Mouth, Daily, # 30 tablet, Refills 1, Route to Pharmacy Electronically, [facility] STORE 96090, 170, cm, 12/05/21 10:11:00 EDT, Height, 50, kg, 11/15/21 11:23:00 EDT, Dry Weight Start Date: 12/13/21 Status: Ordered lisinopril 40 mg oral tablet See Instructions, TAKE 1 TABLET BY MOUTH EVERY DAY, # 90 tablet, 1 Refills, [facility] STORE 65821, 170, cm, 12/17/21 8:41:00 EDT, Height, 50, [...] 0 Refills, Maintenance, 12/17/21 10:05:00 EDT, Tablet, [facility]/pharmacy #1234, Partial fill upon patient request ifthe prescription is for a schedule II opioid drug.... Start Date: 12/17/21 Stop Date: 01/16/22 Status: Ordered OxyCONTIN 10 mg oral tablet, extended release 10 mg, 1, tablet, By Mouth, Every 12 hours, # 56 tablet, Refills 0, Tot. Refills 0, Maintenance, 12/13/21 10:46:00 EDT, Route to Pharmacy Electronically, [facility]/pharmacy #[id number], in addition to his IR oxycodone, 170, [...]
--- OUTSIDE RECORDS SUMMARY | 2024-03-09 07:32 | XMS_ITS | Continuity of Care Document ---
Author Organization [facility] Adult Address [address] [place] [address]- Care Team Providers Care Car Shagger Name Role Phone Tonja TOURE, Jeannette Olivera Primary Care Physicia n [place] [facility] [place]/21 [facility] Adult [address] [place] [address]- Allergies, Adverse Reactions, Alerts Substance Reaction Severity [...] 10/17/21 8:30:00 EDT, Route to Pharmacy Electronically, [facility]/pharmacy #[id number], Partial fill upon patient request ifthe prescription is for a schedule II opioid drug.,... Start Date: 10/17/21 Status: Ordered Anusol-HC 2.5% cream with applicator 1 application, Rectally, 2 times a day, # 30 Gm, 1 Refills, Maintenance, 09/24/21 13:25:00 EST, Cream, [facility]/pharmacy #[id number], Partial fill upon patient request if the prescription is for a schedule II opioid drug., 1 application Rectally 2 times a day, 1... Start Date: 09/24/21 Status: Ordered Anusol-HC 2.5% cream with applicator 1 application, Rectally, 2 times a day, # 30 Gm, 1 Refills, Maintenance, 06/27/21 14:24:00 EST, Cream, [facility]/pharmacy #[id number], Partial fill upon patient request if the prescription is for a schedule II opioid drug., 1 application Rectally 2 times a day, 1... Start Date: 06/27/21 Status: Ordered atorvastatin 20 mg oral tablet 1 tablet = 20 mg, By Mouth, Daily, # 30 tablet, 5 Refills, Maintenance, 06/19/21 8:09:00 EST, Tablet, [facility]/pharmacy #1234, Partial fill upon [...] 2 Refills, Maintenance, 09/24/21 11:18:00 EST, Cream, [facility]/pharmacy #1234, Partial fill upon [...] each, 5 Refills, Maintenance, 07/02/21 8:53:00 EST, [facility]/pharmacy #[id number], 2 puffs Inhalation [...]
--- OUTSIDE RECORDS SUMMARY | 2024-03-09 07:32 | XMS_ITS | Continuity of Care Document ---
Author Organization [facility] Address [address] [place] [address], [address] [place] [address]- Care Team Providers Care Pit Furnace Melter Name Role Phone Fanny JEWELRY ENAMELER, Rhonda Primary Care Physician [phone] Encounter [facility] Date(s): 04/11/22 - 08/09/22 [facility] [address] [place] [address], [address] [place], [place] [address] Attending Physician: Not on Staff, Attending MD [...] 8.5 each, 5 Refills, Maintenance,06/04/22 13:05:00 EST, [id number], 30, TAKE 2 PUFFS BY MOUTH EVERY 4 HOURS NEEDED FOR WHEEZING, 170, cm, 04/10/22 14:30:00 EDT, Height, 50, kg,... Start Date: 06/04/22 Status: Ordered amLODIPine 5 mg oral tablet 1 tablet, By Mouth, Daily, # 90 tablet, 1 Refills, Maintenance, 06/23/22 9:11:00 EST, [id number], 170, cm, 04/10/22 14:30:00 EDT, Height, 50, [...] tablet, 1 Refills, Maintenance, 08/05/22 7:46:00 EST, [facility] [id number], 170, cm, 08/05/22 7:32:00 EST, Height, 50, kg, 11/15/21 11:23:00 EDT, Dry Weight Start Date: 08/05/22 Status: Ordered atorvastatin 20 mg oral tablet 1 tablet = 20 mg, By Mouth, Daily, # 30 tablet, 5 Refills, Maintenance, 11/17/21 19:20:00 EDT, Tablet, [facility]/pharmacy #[id number], Partial fill upon patient request if the prescription is for a schedule II opioid drug., 170, cm, 11/15/21 11:23:00 EDT, Height,... Start Date: 11/17/21 Status: Ordered atorvastatin 20 mg oral tablet 1 tablet = 20 mg, By Mouth, Daily, for 90 days, # 90 tablet, 1 Refills, Physician Stop 12/15/22 11:17:00 EDT, 06/18/22 11:17:00 EST, [facility]/pharmacy #[id number], 170, cm, 04/10/22 14:30:00 EDT, Height, [...] 2 Refills, Maintenance, 09/24/21 11:18:00 EST, Cream, [facility]/pharmacy #1234, Partial fill upon patient request if the prescription is for a schedule II opioid drug., 1 application Topically 3 times a day,... Start Date: 09/24/21 Status: Ordered hydrocortisone topical 25 mg suppository 1 supp = 25 mg, Rectally, 2 times a day, # 28 supp, 0 Refills, Maintenance, 10/02/21 13:05:00 EDT, Suppository, [facility]/pharmacy #1234, Partial fill upon patient request if the prescription is for a schedule II opioid drug., 170, cm, 10/02/21 10:36:00 EDT... Start Date: 10/02/21 Stop Date: 10/16/21 Status: Ordered ipratropium nasal 21 mcg/inh spray See Instructions, INSTILL 2 SPRAYS INTO EACH NOSTRIL 3 TIMES A DAY NEEDED FOR CONGESTION, # 90 Unknown, 1 Refills, Maintenance, 07/23/22 14:20:00 EST, [facility] [id number], 90, INSTILL 2 SPRAYS INTO EACH NOSTRIL 3 TIMES A DAY NEEDED FOR CONGESTION, 1... Start Date: 07/23/22 Status: Ordered lisinopril 10 mg oral tablet 1, tablet, By Mouth, Daily, # 90 tablet, Refills 1, Tot. Refills 1, Maintenance, 02/16/22 16:25:00 EDT, [id number], cm, 12/31/21 8:21:00 EDT, Height, 50, kg, 11/15/21 11:23:00 EDT, Dry Weight Start Date: 02/16/22 Status: Ordered Nicotrol Inhaler 10 mg inhalation device See Instructions, USE 6 CARTRIDGES PER DAY, # 168 Unknown, 0 Refills, Maintenance, 02/03/22 9:21:00EDT, [facility]/pharmacy #1234, 28, USE 6 CARTRIDGES PER DAY, 170, cm, 12/31/21 8:21:00 EDT, Height, 50, kg, 11/15/21 11:23:00 EDT, Dry Weight Start Date: 02/03/22 Status: Ordered oxyCODONE 10 mg oral tablet 1 tablet = 10 mg, By Mouth, Every 6 hours, PRN as needed for severe pain, fill on 07/24/22, # 112 tablet, 0 Refills, Maintenance, 07/23/22 20:14:00 EST, Tablet, [facility]/pharmacy #1234, Partial fill upon patient request if the prescription is for a schedule... Start Date: 07/23/22 Stop Date: 08/20/22 Status: Ordered OxyCONTIN 10 mg oral tablet, extended release 10 mg, 1, tablet, By Mouth, Every 12 hours, fill on 07/24/22, # 56 tablet, Refills 0, Tot. Refills 0,Maintenance, 07/23/22 20:14:00 EST, [id number] in addition to his [...] Care team information Care Team Personnel Name: Rhnoda Escobedo NP Position: [facility] PCO Associate Professional Member Role: PCP Address: Address: [address] [place] [address], [address] [place] [address]- Name: Lisa Awad RN Position: S RN Member Role: Primary Care Nurse Name: Elly Rodriges RN Position: [facility] SN RN Member Role: Primary Care Nurse Care Team Related Persons Name: DIOPCHARLINE PEREZ Address: [place] [address] Name: ELDER ANDERSON Address: home [address] [place] [address] Name: MAEGAN ANDERSON Address: home [address] [place] [address]
--- OUTSIDE RECORDS SUMMARY | 2024-03-09 07:32 | XMS_ITS | Continuity of Care Document ---
Author Organization [facility] Address [address] [place] [address]- Care Team Providers Care Civil Technician Name Role Phone Tonja TOURE, Jeannette Olivera Primary Care Physicia n Encounter [facility] Date(s): 09/10/21 - 10/10/21 [facility] [address] [place] [address]- [place] Allergies, Adverse Reactions, Alerts Substance Reaction [...] 84 capsule, 0 Refills, Maintenance, 04/15/21 10:30:00EDT, [facility]/pharmacy #[id number], Partial fill [...]
--- OUTSIDE RECORDS SUMMARY | 2024-03-09 07:32 | XMS_ITS | Continuity of Care Document ---
Author Organization [facility] ter Address [address] [place] [address]- Care Team Providers Care Systems Manager Name Role Phone Tonja TOURE, Jeannette Olivera Primary Care Physicia n Encounter [facility] Date(s): 06/19/21 - 06/19/[address] [address]- Attending Physician: Shantelle ELDER, Garrison Patton Allergies, Adverse Reactions, Alerts Substance Reaction Severity Status morphine 1 combative CONFUSED OUT OF IT Active 1hallucintations, confusion Immunizations Given and Recorded Vaccine Date Status Refusal Reason influenza virus vaccine, inactivated 03/03/21 Pedro rded influenza virus vaccine, inactivated 02/18/20 Epdro rded influenza virus vaccine, inactivated 02/26/18 Pedro [...] 0 Refills, Maintenance, 04/15/21 10:30:00EDT, [facility]/pharmacy #[id number], Partial fill upon patient request if the prescription is for a schedule IIopioid drug., use 6 cartridges per day, 170, cm, 09... Start Date: 04/15/21 Status: Ordered ProAir HFA 90 mcg/inh inhalation aerosol 2 puffs, Inhalation, Every 4 hours, PRN NEEDED FOR WHEEZE, # 1 each, 5 Refills, Maintenance, 03/01/21 12:03:00 EDT, [facility]/pharmacy #[id number], 2 puffs Inhalation Every 4 [...]
--- OUTSIDE RECORDS SUMMARY | 2024-03-09 07:32 | XMS_ITS | Continuity of Care Document ---
Author Organization [facility] Adult Address [address] [place] [address]- Care Team Providers Care Computer Graphic Artist Name Role Phone Fanny TOURE, Rhonda Primary Care Physician En[place] [facility] [place](s[place] 05/04/23 - 05/11/23 [facility] Adult [address] [place] [address]- Encounter Diagnosis Annual visit for general adult medical examination without abnormal findings (Discharge Diagnosis) - 05/04/23 Medicare annual wellness visit, initial(Discharge Diagnosis) - 05/04/23 COPD (chronic obstructive pulmonary disease)(Discharge Diagnosis) - 05/04/23 Hypertension(Discharge Diagnosis) - 05/04/23 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/pharmacy #[id number], 170, cm, 08/05/22 8:05:00 EST, Height, 50, kg, 11/15/21 11:23:00 EDT, Dry Weight Start Date: 12/04/22 Status: Ordered Anusol-HC 2.5% cream with applicator 1 application, Rectally, 2 times a day, # 30 Gm, 1 Refills, Maintenance, 09/24/21 13:25:00 EST, Cream, [facility]/pharmacy #[id number], Partial [...] Refills, Maintenance, 05/01/23 7:04:00 EDT, [id number], 170, cm, 02/06/23 9:02:00 EDT, Height, 50, [...] Refills, Maintenance, 02/08/23 9:24:00 EDT, Capsule, [facility]/pharmacy #[id number], Partial fill upon patient request, [...] Refills, Maintenance, 09/24/21 11:18:00 EST, Cream, [facility]/pharmacy #[id number], Partial fill upon patient request if the prescription is for a schedule II opioid drug., 1 application Topically 3 times a day,... Start Date: 09/24/21 Status: Ordered hydrocortisone topical 25 mg suppository 1 supp = 25 mg, Rectally, 2 times a day, # 28 supp, 0 Refills, Maintenance, 10/02/21 13:05:00 EDT, Suppository, [facility]/pharmacy #[id number], Partial fill upon patient request if the prescription is for a schedule II opioid drug., 170, cm, 10/02/21 10:36:00 EDT... Start Date: 10/02/21 Stop Date: 10/16/21 Status: Ordered ipratropium nasal 21 mcg/inh spray See Instructions, INSTILL 2 SPRAYS INTO EACH NOSTRIL 3 TIMES A DAY NEEDED FOR CONGESTION, # 60 Unknown, 5 Refills, Maintenance, 12/11/22 19:25:00 EDT, [id number], 90, INSTILL 2 SPRAYS INTO EACH NOSTRIL 3 TIMES A DAY NEEDED FOR CONGESTION, 1... Start Date: 12/11/22 Status: Ordered lisinopril 10 mg oral tablet 1, tablet, By Mouth, Daily, # 90 tablet, Refills 1, Maintenance, 05/01/23 7:04:00 EDT, Route to Pharmacy Electronically, [id number], 170, cm, 02/06/23 9:02:00 EDT, Height, 50, kg, 11/15/21 11:23:00 EDT, Dry Weight Start Date: 05/01/23 Status: Ordered Nicotrol Inhaler 10 mg inhalation device See Instructions, USE 6 CARTRIDGES PER DAY, # 168 Unknown, 0 Refills, Maintenance, 02/03/22 9:21:00EDT, [facility]/pharmacy #[id number], 28, USE 6 CARTRIDGES PER DAY, 170, cm, 12/31/21 8:21:00 EDT, Height, 50, kg, 11/15/21 11:23:00 EDT, Dry Weight Start Date: 02/03/22 Status: Ordered oxyCODONE 5 mg oral tablet 10 mg, 2, tablet, By Mouth, Every 6 hours, PRN, BAG MAKING MACHINE OPERATOR checked. Fill on 04/30/23, # 224 tablet, Refills 0, Tot. Refills 0, Maintenance, as needed for pain, 04/24/23 8:29:00 EDT, Route to Pharmacy Electronically, [facility]/pharmacy #[id number], Partial fill upon chandrika... Start Date: 04/24/23 Stop Date: 05/22/23 Status: Ordered OxyCONTIN 10 mg oral tablet, extended release 10 mg, 1, tablet, By Mouth, Every 12 hours, BAG MAKING MACHINE OPERATOR checked. Fill on 04/30/23, # 56 tablet, Refills 0, Tot. Refills 0, Maintenance, 04/24/23 8:29:00 EDT, Route to Pharmacy Electronically, [facility]/pharmacy #[id number], in addition to his IR oxycodone, 170, cm, 02/06... Start Date: 04/24/23 Stop Date: 05/22/23 Status: Ordered Ventolin HFA 108 mcg/inh inhalation aerosol with adapter See Instructions, INHALE 1 PUFF 4 TIMES A DAY NEEDED FOR COUGH, # 18 each, 5 Refills, Maintenance, 12/11/22 19:25:00 EDT, [id number], 170, cm, 08/05/22 8:05:00 EST, Height, 50, [...] Effective Dates Health Status Clinical Service Informant Annual visit for general adult medical examination without abnormal findings Discharge Diagnosis 05/04/23 Medicare annual wellness visit, initial Discharge Diagnosis 05/04/23 COPD (chronic obstructive pulmonary disease) Discharge Diagnosis 05/04/23 Hypertension Discharge Diagnosis 05/04/23 Lumbar disc herniation with radiculopathy Discharge Diagnosis 05/04/23 Multiple lung nodules Discharge Diagnosis 05/04/23 Opioid use disorder, severe, in sustained remission Discharge Diagnosis 05/04/23 Tobacco use disorder Discharge Diagnosis 05/04/23 Vital Signs Most recent to oldest [Reference Range]: 1 Height 170 cm (05/04/23 3:18 PM) Weight 53.1 kg (05/04/23 3:18 PM) Oxygen Saturation [94-100 %] 97 % (05/04/23 3:18 PM) Pulse Rate [55-90 bpm] 61 bpm (05/04/23 3:18 PM) Body Mass Index [18.5-24.99 kg/m2] 18.37 kg/m2 *L* (05/04/23 3:18 PM) Blood Pressure [90-138/55-84 mm Hg] 130/ 69mm Hg (05/04/23 3:18 PM) Respiratory Rate [16-30 br/min] 17 br/mi n (05/04/23 3:18 PM) Temperature [96.8-100.4 DegF] 98.3 DegF (05/04/23 3:18 PM) Mode of Delivery (Oxygen) Room air (05/04/23 3:18 PM) Blood pressure sites Arm, right (05/04/23 3:18 PM) Temperature Route Oral (05/04/23 3:18 PM) Weight Obtained Via Standing scale (05/04/23 3:18 PM) Social History Social History Type Response Tobacco Use: 4 or less cigar ettes(less than 1/4 pack)/day in last 30 days. Other: 2-3 cig/d x 40 years; was at 0.5 pp/d. Sex Note * Ariane Jones: PERFORM, SIGN, VERIFY Event Display: Patient Education/Instruction Authored Date: [id number] [facility] [place] [facility] Clinical Summary Name MIREYA ANDERSON Age 68 Years 1955 PCP Fanny FIELD ATTENDANT, Rhonda PCP Visit Date 05/04/2023 14:50:00 Additional Instructions: one yr mwv comp eval 6 moth f/u pain 3 month f/u pain vicky ok for the last 2 appt Scheduled Appointments?? Future Appointments ?*[facility] [address] ?[place],??[place],??[address] ?Phone:??--?Fax:??-- ?Appt. Date:??05/05/2023?1:00 PM ?Scheduled Provider:??Tha Ga DO Follow-Up Instructions ?? With: Address: When: Fanny TOURE, Rhonda In 3 months Diagnosis Other nonspecific abnormal finding of lung field; Pain in unspecified joint; Opioid dependence, in remission; Encounter for general adult medical examination without abnormal findings; Encounter for general adult medical examination without abnormal findings; Chronic obstructive pulmonary disease, unspecified; Nicotine dependence, unspecified, uncomplicated; Essential (primary) hypertension; Intervertebral disc disorders with radiculopathy, lumbar region; Anemia, unspecified Medications: Please continue your medications until treatment is completed or stopped by your provider. Discuss any questions related to medications with your provider. Medications to Continue with No Changes These medications were not printed or sent to your pharmacy Albuterol (Ventolin HFA 108 mcg/inh inhalation aerosol with adapter) INHALE 1 PUFF 4 TIMES A DAY ASNEEDED FOR COUGH. Refills: 5. Next Dose: Amlodipine (amLODIPine 5 mg oral tablet) 1 tab(s) Oral Daily. Refills: 1. Next Dose: Atorvastatin (atorvastatin 20 mg oral tablet) 1 tab(s) Oral Daily. Refills: 1. Next Dose: Cholecalciferol (cholecalciferol 50,000 intl units oral capsule) 1 capsule Oral every 7 days for 90Days. Refills: 3. Next Dose: Clonazepam 1 Milligram Oral 3 times a day. Next Dose: Durable Medical Equipment (Back Brace) Use for low back support. Refills: 0. Next Dose: Durable Medical Equipment (Home Blood Pressure Monitor) Use to check blood pressure at home.. Refills: 0. Next Dose: Hydrocortisone Topical (Anusol-HC 2.5% cream with applicator) 1 christopher Per rectum twice a day. Refills: 1. Next Dose: Hydrocortisone Topical (Anusol-HC 2.5% cream with applicator) 1 christopher Per rectum twice a day. Refills: 1. Next Dose: Hydrocortisone Topical (hydrocortisone 2.5% topical cream) 1 christopher Topically 3 times a day. Refills: 2. Next Dose: Hydrocortisone Topical (hydrocortisone topical 25 mg suppository) 1 suppository(ies) Per rectum twice a day for 14 Days. Refills: 0. Next Dose: Ipratropium Nasal (ipratropium nasal 21 mcg/inh spray) INSTILL 2 SPRAYS INTO EACH NOSTRIL 3 TIMES ADAY NEEDED FOR CONGESTION. Refills: 5. Next Dose: Lisinopril (lisinopril 10 mg oral tablet) 1 tab(s) Oral Daily. Refills: 1. Next Dose: Miscellaneous Rx (Ensure) 3 cans daily to maintain weight. Equal numbers chocolate and strawberry. Dx achalasia. Refills: 5. Next Dose: Nicotine (Nicotrol Inhaler 10 mg inhalation device) USE 6 CARTRIDGES PER DAY. Refills: 0. Next Dose: Oxycodone (oxyCODONE 5 mg oral tablet) 2 tab(s) Oral every 6 hours as needed as needed for pain for28 Days. BAG MAKING MACHINE OPERATOR checked. Fill on 04/30/23. Refills: 0. Next Dose: Oxycodone (OxyCONTIN 10 mg oral tablet, extended release) 1 tab(s) Oral every 12 hours for 28 Days.BAG MAKING MACHINE OPERATOR checked. Fill on 04/30/23. Refills: 0. Next Dose: Allergy Info:?? morphine Medications Given This Visit Future Orders ?Sedimentation Rate? Order Date:05/04/23?- Complete on or after?05/04/23 ?C Reactive Protein? Order Date:05/04/23?- Complete on or after?05/04/23 ?CBC? Order Date:05/04/23?- Complete on or after?05/04/23 Vital Signs Height 170 cm Weight 53.1 kg BMI 18.37 kg/m2 Blood Pressure 130 mm Hg/69 mm Hg Temperature 98.3 DegF Pulse Rate 61 bpm Respiratory Rate 17 br/min 02 Sat Mode of Delivery 97 %/Room air You can now view a summary of your hospital visit from the comfort of your home through a free online portal called Fluential. Fluential is a website that allows you to securely view your medical information including discharge summary, medications and follow-up visits. ??You can alsosend a secure electronic message to your doctor???s office to request appointments, renew medications or just ask a question. You can enroll at [email or web address] or register during your next office visit. [...] primary care provider, you may find a [facility] provider by calling [facility] [employer] [facility] at [phone]. [facility], in keeping with [facility] guidance, no longer requires face masks [...] format to support your individualized medical care. Prevention Guidelines, Men Ages 65 and Older Screening tests and vaccines are an important part of managing your health. Health counseling is essential, too. Below are guidelines for these, for men ages 65 and older. Talk with your healthcare provider to make sure you???re up-to-date on what you need. Screening Who needs it How often Abdominal aortic aneurysm Men ages 65 to 75 who have ever smoked 1 ultrasound Alcohol misuse All men in this age group At routine exams Blood pressure All men in this age group Every 2 years if your blood pressure is less than 120/80 mm Hg; yearly if your systolic blood pressure is 120 to 139 mm Hg, or your diastolic blood pressure reading is 80 to 89 mm Hg Colorectal cancer All men in this age group Flexible sigmoidoscopy every 5 years, or colonoscopy every 10 years, or double- contrast barium enema every 5 years; yearly fecal occult blood test or fecal immunochemical test; or a stool DNA test asoften as your healthcare provider advises; talk with your healthcare provider about which tests arebest for you Depression All men in this age group At routine exams Type 2 diabetes or prediabetes All adults beginning at age 45 and adults without symptoms at any age who are overweight or obese and have 1 or more other risk factors for diabetes At least every 3 years Hepatitis C Men at increased risk for infection ??? talk with your healthcare provider At routine exams High cholesterol or triglycerides All men in this age group At least every 5 years HIV Men at increased risk for infection ??? talk with your healthcare provider At routine exams Lung cancer Adults ages 55 to 80 who have smoked Yearly screening in smokers with 30 pack-year history of smoking or who quit within 15 years Obesity All men in this age group At routine exams Prostate cancer All men in this age group, talk to healthcare provider about risks and benefits of digital rectal exam (GENE) and prostate-specific antigen (PSA) screening1 At routine exams Syphilis Men at increased risk for infection ??? talk with your healthcare provider At routine exams Tuberculosis Men at increased risk for infection ??? talk with your healthcare provider Ask your healthcare provider Vision All men in this age group Every 1 to 2 years; if you have a chronic health condition, ask your healthcare provider if you needs exams more often Vaccine Who needs it How often Chickenpox (varicella) All men in this age group who have no record of this infection or vaccine 2 doses; second dose should be given at least 4 weeks after the first dose Hepatitis A Men at increased risk for infection ??? talk with your healthcare provider 2 doses given at least 6 months apart Hepatitis B Men at increased risk for infection ??? talk with your healthcare provider 3 doses over 6 months; second dose should be given 1 month after the first dose; the third dose should be given at least 2 months after the second dose and at least 4 months after the first dose Haemophilus influenzae Type B (HIB) Men at increased risk for infection ??? talk with your healthcare provider 1 to 3 doses Influenza (flu) All men in this age group Once a year Meningococcal Men at increased risk for infection ??? talk with your healthcare provider 1 or more doses Pneumococcal??conjugate vaccine (PCV13)??and pneumococcal polysaccharide??vaccine (PPSV23) All men in this age group 1 dose of each vaccine Tetanus/diphtheria/ pertussis (Td/Tdap) booster All men in this age group Td every 10 years, or Tdap if you will have contact with a child younger than 12 months old Zoster All men in this age group 1 dose Counseling Who needs it How often Diet and exercise Men??who are overweight or obese When diagnosed, and then at routine exams Fall prevention (exercise, vitamin D supplements) All men in this age group At routine exams Sexually transmitted infection Men at increased risk for infection ??? talk with your healthcare provider At routine exams Use of daily aspirin Men ages 45 to 79 at risk for cardiovascular health problems At routine exams Use of tobacco and the health affects it can cause All men in this age group Every visit [address] [place] [address] [facility] ?? [phone] [employer]. [address] [place] [address], [place] [address]. All rights reserved. This information is not intended as a substitute for professional medical care. Always follow your healthcare professional's instructions. Addiction: Your Treatment Options No one treatment for addiction works for everyone. The treatment that's best for you can depend on many factors. For many people, treatment may be a combination of medicine, behavior change, and support. Medicines Medicines can help with withdrawal symptoms. They can also reduce cravings for the addictive substance. They can blunt its feel-good effects. For example: ??? Methadone, buprenorphine, and naltrexone are used for heroin and other opioid addiction. ??? Acamprosate, disulfiram, and naltrexone are used for treating alcohol addiction. ??? Bupropion, varenicline, or nicotine replacement therapy can help with nicotine addiction. These medicines have proved to be quite helpful for people trying to overcome an addiction. Behavior change treatment ??? Motivational Interviewing. This is a type of counseling that encourages you to change your behavior. The goal is to explore and resolve any mixed feelings you have about quitting drug or alcohol use. The therapist helps you figure out and focus on your personal reasons for wanting to change. ??? Cognitive behavioral therapy (CBT). In this therapy, you figure out your problem behaviors. Andyou learn ways to change those behaviors. For example, if anger or stress makes you want to drink, a therapist can help you learn healthy ways to manage those feelings. ??? Community reinforcement approach (ENTRY LEVEL ELECTRICAL ENGINEER). This therapy uses vouchers help you follow a drug- or alcohol-free lifestyle.?? With each clean urine sample, you get a voucher to use for a reward.?? Thishelps you stay drug- or alcohol-free while you learn new life skills. ??? Community reinforcement and family training (CRAFT). This therapy counsels and trains your family. The therapist teaches them how to motivate you to seek or continue treatment. This therapy also helps your family recognize family situations that may encourage you to drink or use drugs. ??? [facility] support groups. These groups are run voluntarily by non-health care??professional people.??Their purpose is to support each other emotionally and socially by sharing their experiences withsubstance abuse and mentoring others through the recovery process. Many of these groups are based on the 12- step recovery model, and have sessions available for every type of addiction??(for example,AA or Alcoholics Anonymous; NA or Narcotics Anonymous). ??? Individualized drug counseling (IDC). This commonly practiced form of therapy typically incorporate the disease model of addiction and the spiritual dimension of recovery while also focusing on behavioral change through participation in 12-step programs. ?? [phone] [employer]. [address] [place] [address]. All rights reserved. This information is not intended as a substitute for professional medical care. Always follow your healthcare professional's instructions. * Ariane Jones: PERFORM, SIGN, VERIFY Event Display: Patient Education/Instruction Authored Date: [id number] [facility] Clinical Summary Name MIREYA ANDERSON Age 68 Years 1955 PCP Fanny FIELD ATTENDANT, [facility]onda [id number] Visit Date 05/04/2023 14:50:00 Additional Instructions: one yr mwv comp eval 6 moth f/u pain 3 month f/u pain vicky ok for the last 2 appt Scheduled Appointments?? Future Appointments ?*[facility] [address] ?[place],??[place],??[address] ?Phone:??--?Fax:??-- ?Appt. Date:??05/05/2023?1:00 PM ?Scheduled Provider:??Tha Ga DO Follow-Up Instructions ?? With: Address: When: Fanny TOURE, Rhonda In 3 months Diagnosis Other nonspecific abnormal finding of lung field; Pain in unspecified joint; Opioid dependence, in remission; Encounter for general adult medical examination without abnormal findings; Encounter for general adult medical examination without abnormal findings; Chronic obstructive pulmonary disease, unspecified; Nicotine dependence, unspecified, uncomplicated; Essential (primary) hypertension; Intervertebral disc disorders with radiculopathy, lumbar region; Anemia, unspecified Medications: Please continue your medications until treatment is completed or stopped by your provider. Discuss any questions related to medications with your provider. Medications to Continue with No Changes These medications were not printed or sent to your pharmacy Albuterol (Ventolin HFA 108 mcg/inh inhalation aerosol with adapter) INHALE 1 PUFF 4 TIMES A DAY ASNEEDED FOR COUGH. Refills: 5. Next Dose: Amlodipine (amLODIPine 5 mg oral tablet) 1 tab(s) Oral Daily. Refills: 1. Next Dose: Atorvastatin (atorvastatin 20 mg oral tablet) 1 tab(s) Oral Daily. Refills: 1. Next Dose: Cholecalciferol (cholecalciferol 50,000 intl units oral capsule) 1 capsule Oral every 7 days for 90Days. Refills: 3. Next Dose: Clonazepam 1 Milligram Oral 3 times a day. Next Dose: Durable Medical Equipment (Back Brace) Use for low back support. Refills: 0. Next Dose: Durable Medical Equipment (Home Blood Pressure Monitor) Use to check blood pressure at home.. Refills: 0. Next Dose: Hydrocortisone Topical (Anusol-HC 2.5% cream with applicator) 1 christopher Per rectum twice a day. Refills: 1. Next Dose: Hydrocortisone Topical (Anusol-HC 2.5% cream with applicator) 1 christopher Per rectum twice a day. Refills: 1. Next Dose: Hydrocortisone Topical (hydrocortisone 2.5% topical cream) 1 christopher Topically 3 times a day. Refills: 2. Next Dose: Hydrocortisone Topical (hydrocortisone topical 25 mg suppository) 1 suppository(ies) Per rectum twice a day for 14 Days. Refills: 0. Next Dose: Ipratropium Nasal (ipratropium nasal 21 mcg/inh spray) INSTILL 2 SPRAYS INTO EACH NOSTRIL 3 TIMES ADAY NEEDED FOR CONGESTION. Refills: 5. Next Dose: Lisinopril (lisinopril 10 mg oral tablet) 1 tab(s) Oral Daily. Refills: 1. Next Dose: Miscellaneous Rx (Ensure) 3 cans daily to maintain weight. Equal numbers chocolate and strawberry. Dx achalasia. Refills: 5. Next Dose: Nicotine (Nicotrol Inhaler 10 mg inhalation device) USE 6 CARTRIDGES PER DAY. Refills: 0. Next Dose: Oxycodone (oxyCODONE 5 mg oral tablet) 2 tab(s) Oral every 6 hours as needed as needed for pain for28 Days. BAG MAKING MACHINE OPERATOR checked. Fill on 04/30/23. Refills: 0. Next Dose: Oxycodone (OxyCONTIN 10 mg oral tablet, extended release) 1 tab(s) Oral every 12 hours for 28 Days.BAG MAKING MACHINE OPERATOR checked. Fill on 04/30/23. Refills: 0. Next Dose: Allergy Info:?? morphine Medications Given This Visit Future Orders ?Sedimentation Rate? Order Date:05/04/23?- Complete on or after?05/04/23 ?C Reactive Protein? Order Date:05/04/23?- Complete on or after?05/04/23 ?CBC? Order Date:05/04/23?- Complete on or after?05/04/23 Vital Signs Height 170 cm Weight 53.1 kg BMI 18.37 kg/m2 Blood Pressure 130 mm Hg/69 mm Hg Temperature 98.3 DegF Pulse Rate 61 bpm Respiratory Rate 17 br/min 02 Sat Mode of Delivery 97 %/Room air You can now view a summary of your hospital visit from the comfort of your home through a free online portal called Fluential. Fluential is a website that allows you to securely view your medical information including discharge summary, medications and follow-up visits. ??You can alsosend a secure electronic message to your doctor???s office to request appointments, renew medications or just ask a question. You can enroll at [email or web address] or register during your next office visit. [...] primary care provider, you may find a [facility] provider by calling [facility] [employer] at [phone]. [facility], in keeping with [facility] guidance, no longer requires face masks [...] format to support your individualized medical care. Prevention Guidelines, Men Ages 65 and Older Screening tests and vaccines are an important part of managing your health. Health counseling is essential, too. Below are guidelines for these, for men ages 65 and older. Talk with your healthcare provider to make sure you???re up-to-date on what you need. Screening Who needs it How often Abdominal aortic aneurysm Men ages 65 to 75 who have ever smoked 1 ultrasound Alcohol misuse All men in this age group At routine exams Blood pressure All men in this age group Every 2 years if your blood pressure is less than 120/80 mm Hg; yearly if your systolic blood pressure is 120 to 139 mm Hg, or your diastolic blood pressure reading is 80 to 89 mm Hg Colorectal cancer All men in this age group Flexible sigmoidoscopy every 5 years, or colonoscopy every 10 years, or double- contrast barium enema every 5 years; yearly fecal occult blood test or fecal immunochemical test; or a stool DNA test asoften as your healthcare provider advises; talk with your healthcare provider about which tests arebest for you Depression All men in this age group At routine exams Type 2 diabetes or prediabetes All adults beginning at age 45 and adults without symptoms at any age who are overweight or obese and have 1 or more other risk factors for diabetes At least every 3 years Hepatitis C Men at increased risk for infection ??? talk with your healthcare provider At routine exams High cholesterol or triglycerides All men in this age group At least every 5 years HIV Men at increased risk for infection ??? talk with your healthcare provider At routine exams Lung cancer Adults ages 55 to 80 who have smoked Yearly screening in smokers with 30 pack-year history of smoking or who quit within 15 years Obesity All men in this age group At routine exams Prostate cancer All men in this age group, talk to healthcare provider about risks and benefits of digital rectal exam (GENE) and prostate-specific antigen (PSA) screening1 At routine exams Syphilis Men at increased risk for infection ??? talk with your healthcare provider At routine exams Tuberculosis Men at increased risk for infection ??? talk with your healthcare provider Ask your healthcare provider Vision All men in this age group Every 1 to 2 years; if you have a chronic health condition, ask your healthcare provider if you needs exams more often Vaccine Who needs it How often Chickenpox (varicella) All men in this age group who have no record of this infection or vaccine 2 doses; second dose should be given at least 4 weeks after the first dose Hepatitis A Men at increased risk for infection ??? talk with your healthcare provider 2 doses given at least 6 months apart Hepatitis B Men at increased risk for infection ??? talk with your healthcare provider 3 doses over 6 months; second dose should be given 1 month after the first dose; the third dose should be given at least 2 months after the second dose and at least 4 months after the first dose Haemophilus influenzae Type B (HIB) Men at increased risk for infection ??? talk with your healthcare provider 1 to 3 doses Influenza (flu) All men in this age group Once a year Meningococcal Men at increased risk for infection ??? talk with your healthcare provider 1 or more doses Pneumococcal??conjugate vaccine (PCV13)??and pneumococcal polysaccharide??vaccine (PPSV23) All men in this age group 1 dose of each vaccine Tetanus/diphtheria/ pertussis (Td/Tdap) booster All men in this age group Td every 10 years, or Tdap if you will have contact with a child younger than 12 months old Zoster All men in this age group 1 dose Counseling Who needs it How often Diet and exercise Men??who are overweight or obese When diagnosed, and then at routine exams Fall prevention (exercise, vitamin D supplements) All men in this age group At routine exams Sexually transmitted infection Men at increased risk for infection ??? talk with your healthcare provider At routine exams Use of daily aspirin Men ages 45 to 79 at risk for cardiovascular health problems At routine exams Use of tobacco and the health affects it can cause All men in this age group Every visit [address] [place] [address] [facility] ?? [phone] [employer]. [address] [place] [address]. All rights reserved. This information is not intended as a substitute for professional medical care. Always follow your healthcare professional's instructions. Addiction: Your Treatment Options No one treatment for addiction works for everyone. The treatment that's best for you can depend on many factors. For many people, treatment may be a combination of medicine, behavior change, and support. Medicines Medicines can help with withdrawal symptoms. They can also reduce cravings for the addictive substance. They can blunt its feel-good effects. For example: ??? Methadone, buprenorphine, and naltrexone are used for heroin and other opioid addiction. ??? Acamprosate, disulfiram, and naltrexone are used for treating alcohol addiction. ??? Bupropion, varenicline, or nicotine replacement therapy can help with nicotine addiction. These medicines have proved to be quite helpful for people trying to overcome an addiction. Behavior change treatment ??? Motivational Interviewing. This is a type of counseling that encourages you to change your behavior. The goal is to explore and resolve any mixed feelings you have about quitting drug or alcohol use. The therapist helps you figure out and focus on your personal reasons for wanting to change. ??? Cognitive behavioral therapy (CBT). In this therapy, you figure out your problem behaviors. Andyou learn ways to change those behaviors. For example, if anger or stress makes you want to drink, a therapist can help you learn healthy ways to manage those feelings. ??? Community reinforcement approach (ENTRY LEVEL ELECTRICAL ENGINEER). This therapy uses vouchers help you follow a drug- or alcohol-free lifestyle.?? With each clean urine sample, you get a voucher to use for a reward.?? Thishelps you stay drug- or alcohol-free while you learn new life skills. ??? Community reinforcement and family training (CRAFT). This therapy counsels and trains your family. The therapist teaches them how to motivate you to seek or continue treatment. This therapy also helps your family recognize family situations that may encourage you to drink or use drugs. ??? [facility] support groups. These groups are run voluntarily by non-health care??professional people.??Their purpose is to support each other emotionally and socially by sharing their experiences withsubstance abuse and mentoring others through the recovery process. Many of these groups are based on the 12- step recovery model, and have sessions available for every type of addiction??(for example,AA or Alcoholics Anonymous; NA or Narcotics Anonymous). ??? Individualized drug counseling (IDC). This commonly practiced form of therapy typically incorporate the disease model of addiction and the spiritual dimension of recovery while also focusing on behavioral change through participation in 12-step programs. ?? [phone] [employer]. [address] [place] [address]. All rights reserved. This information is not intended as a substitute for professional medical care. Always follow your healthcare professional's instructions. * Rhonda Escobedo NP: PERFORM, SIGN, VERIFY Event Display: Patient Education/Instruction Authored Date: [id number] [facility] *[facility] [place] [facility] Clinical Summary Name MIREYA ANDERSON Age 68 Years 1955 PCP Rhonda Escobedo NP PCP Visit Date 05/04/2023 14:50:00 Additional Instructions: one yr mwv comp eval 6 moth f/u pain 3 month f/u pain vicky ok for the last 2 appt Scheduled Appointments?? Future Appointments ?*[facility] [address] ?[place],??[place],??[address] ?Phone:??--?Fax:??-- ?Appt. Date:??05/05/2023?1:00 PM ?Scheduled Provider:??Tha Ga DO Follow-Up Instructions ?? With: Address: When: Fanny TOURE, Rhonda In 3 months Diagnosis Other nonspecific abnormal finding of lung field; Pain in unspecified joint; Opioid dependence, in remission; Encounter for general adult medical examination without abnormal findings; Encounter for general adult medical examination without abnormal findings; Chronic obstructive pulmonary disease, unspecified; Nicotine dependence, unspecified, uncomplicated; Essential (primary) hypertension; Intervertebral disc disorders with radiculopathy, lumbar region; Anemia, unspecified Medications: Please continue your medications until treatment is completed or stopped by your provider. Discuss any questions related to medications with your provider. Medications to Continue with No Changes These medications were not printed or sent to your pharmacy Albuterol (Ventolin HFA 108 mcg/inh inhalation aerosol with adapter) INHALE 1 PUFF 4 TIMES A DAY ASNEEDED FOR COUGH. Refills: 5. Next Dose: Amlodipine (amLODIPine 5 mg oral tablet) 1 tab(s) Oral Daily. Refills: 1. Next Dose: Atorvastatin (atorvastatin 20 mg oral tablet) 1 tab(s) Oral Daily. Refills: 1. Next Dose: Cholecalciferol (cholecalciferol 50,000 intl units oral capsule) 1 capsule Oral every 7 days for 90Days. Refills: 3. Next Dose: Clonazepam 1 Milligram Oral 3 times a day. Next Dose: Durable Medical Equipment (Back Brace) Use for low back support. Refills: 0. Next Dose: Durable Medical Equipment (Home Blood Pressure Monitor) Use to check blood pressure at home.. Refills: 0. Next Dose: Hydrocortisone Topical (Anusol-HC 2.5% cream with applicator) 1 christopher Per rectum twice a day. Refills: 1. Next Dose: Hydrocortisone Topical (Anusol-HC 2.5% cream with applicator) 1 christopher Per rectum twice a day. Refills: 1. Next Dose: Hydrocortisone Topical (hydrocortisone 2.5% topical cream) 1 christopher Topically 3 times a day. Refills: 2. Next Dose: Hydrocortisone Topical (hydrocortisone topical 25 mg suppository) 1 suppository(ies) Per rectum twice a day for 14 Days. Refills: 0. Next Dose: Ipratropium Nasal (ipratropium nasal 21 mcg/inh spray) INSTILL 2 SPRAYS INTO EACH NOSTRIL 3 TIMES ADAY NEEDED FOR CONGESTION. Refills: 5. Next Dose: Lisinopril (lisinopril 10 mg oral tablet) 1 tab(s) Oral Daily. Refills: 1. Next Dose: Miscellaneous Rx (Ensure) 3 cans daily to maintain weight. Equal numbers chocolate and strawberry. Dx achalasia. Refills: 5. Next Dose: Nicotine (Nicotrol Inhaler 10 mg inhalation device) USE 6 CARTRIDGES PER DAY. Refills: 0. Next Dose: Oxycodone (oxyCODONE 5 mg oral tablet) 2 tab(s) Oral every 6 hours as needed as needed for pain for28 Days. BAG MAKING MACHINE OPERATOR checked. Fill on 04/30/23. Refills: 0. Next Dose: Oxycodone (OxyCONTIN 10 mg oral tablet, extended release) 1 tab(s) Oral every 12 hours for 28 Days.BAG MAKING MACHINE OPERATOR checked. Fill on 04/30/23. Refills: 0. Next Dose: Allergy Info:?? morphine Medications Given This Visit Future Orders ?Sedimentation Rate? Order Date:05/04/23?- Complete on or after?05/04/23 ?C Reactive Protein? Order Date:05/04/23?- Complete on or after?05/04/23 ?CBC? Order Date:05/04/23?- Complete on or after?05/04/23 Vital Signs Height 170 cm Weight 53.1 kg BMI 18.37 kg/m2 Blood Pressure 130 mm Hg/69 mm Hg Temperature 98.3 DegF Pulse Rate 61 bpm Respiratory Rate 17 br/min 02 Sat Mode of Delivery 97 %/Room air You can now view a summary of your hospital visit from the comfort of your home through a free online portal called [employer]. [employer] is a website that allows you to securely view your medical information including discharge summary, medications and follow-up visits. ??You can alsosend a secure electronic message to your doctor???s office to request appointments, renew medications or just ask a question. You can enroll at [email or web address] or register during your next office visit. [...] primary care provider, you may find a [facility] provider by calling [facility] [employer] [facility] at [phone]. [facility], in keeping with [facility] guidance, no longer requires face masks [...] format to support your individualized medical care. Prevention Guidelines, Men Ages 65 and Older Screening tests and vaccines are an important part of managing your health. Health counseling is essential, too. Below are guidelines for these, for men ages 65 and older. Talk with your healthcare provider to make sure you???re up-to-date on what you need. Screening Who needs it How often Abdominal aortic aneurysm Men ages 65 to 75 who have ever smoked 1 ultrasound Alcohol misuse All men in this age group At routine exams Blood pressure All men in this age group Every 2 years if your blood pressure is less than 120/80 mm Hg; yearly if your systolic blood pressure is 120 to 139 mm Hg, or your diastolic blood pressure reading is 80 to 89 mm Hg Colorectal cancer All men in this age group Flexible sigmoidoscopy every 5 years, or colonoscopy every 10 years, or double- contrast barium enema every 5 years; yearly fecal occult blood test or fecal immunochemical test; or a stool DNA test asoften as your healthcare provider advises; talk with your healthcare provider about which tests arebest for you Depression All men in this age group At routine exams Type 2 diabetes or prediabetes All adults beginning at age 45 and adults without symptoms at any age who are overweight or obese and have 1 or more other risk factors for diabetes At least every 3 years Hepatitis C Men at increased risk for infection ??? talk with your healthcare provider At routine exams High cholesterol or triglycerides All men in this age group At least every 5 years HIV Men at increased risk for infection ??? talk with your healthcare provider At routine exams Lung cancer Adults ages 55 to 80 who have smoked Yearly screening in smokers with 30 pack-year history of smoking or who quit within 15 years Obesity All men in this age group At routine exams Prostate cancer All men in this age group, talk to healthcare provider about risks and benefits of digital rectal exam (GENE) and prostate-specific antigen (PSA) screening1 At routine exams Syphilis Men at increased risk for infection ??? talk with your healthcare provider At routine exams Tuberculosis Men at increased risk for infection ??? talk with your healthcare provider Ask your healthcare provider Vision All men in this age group Every 1 to 2 years; if you have a chronic health condition, ask your healthcare provider if you needs exams more often Vaccine Who needs it How often Chickenpox (varicella) All men in this age group who have no record of this infection or vaccine 2 doses; second dose should be given at least 4 weeks after the first dose Hepatitis A Men at increased risk for infection ??? talk with your healthcare provider 2 doses given at least 6 months apart Hepatitis B Men at increased risk for infection ??? talk with your healthcare provider 3 doses over 6 months; second dose should be given 1 month after the first dose; the third dose should be given at least 2 months after the second dose and at least 4 months after the first dose Haemophilus influenzae Type B (HIB) Men at increased risk for infection ??? talk with your healthcare provider 1 to 3 doses Influenza (flu) All men in this age group Once a year Meningococcal Men at increased risk for infection ??? talk with your healthcare provider 1 or more doses Pneumococcal??conjugate vaccine (PCV13)??and pneumococcal polysaccharide??vaccine (PPSV23) All men in this age group 1 dose of each vaccine Tetanus/diphtheria/ pertussis (Td/Tdap) booster All men in this age group Td every 10 years, or Tdap if you will have contact with a child younger than 12 months old Zoster All men in this age group 1 dose Counseling Who needs it How often Diet and exercise Men??who are overweight or obese When diagnosed, and then at routine exams Fall prevention (exercise, vitamin D supplements) All men in this age group At routine exams Sexually transmitted infection Men at increased risk for infection ??? talk with your healthcare provider At routine exams Use of daily aspirin Men ages 45 to 79 at risk for cardiovascular health problems At routine exams Use of tobacco and the health affects it can cause All men in this age group Every visit [address] [place] [address] [facility] ?? [phone] [employer]. [address] [place] [address]. All rights reserved. This information is not intended as a substitute for professional medical care. Always follow your healthcare professional's instructions. Addiction: Your Treatment Options No one treatment for addiction works for everyone. The treatment that's best for you can depend on many factors. For many people, treatment may be a combination of medicine, behavior change, and support. Medicines Medicines can help with withdrawal symptoms. They can also reduce cravings for the addictive substance. They can blunt its feel-good effects. For example: ??? Methadone, buprenorphine, and naltrexone are used for heroin and other opioid addiction. ??? Acamprosate, disulfiram, and naltrexone are used for treating alcohol addiction. ??? Bupropion, varenicline, or nicotine replacement therapy can help with nicotine addiction. These medicines have proved to be quite helpful for people trying to overcome an addiction. Behavior change treatment ??? Motivational Interviewing. This is a type of counseling that encourages you to change your behavior. The goal is to explore and resolve any mixed feelings you have about quitting drug or alcohol use. The therapist helps you figure out and focus on your personal reasons for wanting to change. ??? Cognitive behavioral therapy (CBT). In this therapy, you figure out your problem behaviors. Andyou learn ways to change those behaviors. For example, if anger or stress makes you want to drink, a therapist can help you learn healthy ways to manage those feelings. ??? Community reinforcement approach (ENTRY LEVEL ELECTRICAL ENGINEER). This therapy uses vouchers help you follow a drug- or alcohol-free lifestyle.?? With each clean urine sample, you get a voucher to use for a reward.?? Thishelps you stay drug- or alcohol-free while you learn new life skills. ??? Community reinforcement and family training (CRAFT). This therapy counsels and trains your family. The therapist teaches them how to motivate you to seek or continue treatment. This therapy also helps your family recognize family situations that may encourage you to drink or use drugs. ??? [facility] support groups. These groups are run voluntarily by non-health care??professional people.??Their purpose is to support each other emotionally and socially by sharing their experiences withsubstance abuse and mentoring others through the recovery process. Many of these groups are based on the 12- step recovery model, and have sessions available for every type of addiction??(for example,AA or Alcoholics Anonymous; NA or Narcotics Anonymous). ??? Individualized drug counseling (IDC). This commonly practiced form of therapy typically incorporate the disease model of addiction and the spiritual dimension of recovery while also focusing on behavioral change through participation in 12-step programs. ?? 9365-2002 [employer]. [address] [place] [address]. All rights reserved. This information is not intended as a substitute for professional medical care. Always follow your healthcare professional's instructions. Patient Care team information Care Team Personnel Name: Rhonda Escobedo NP Position: [facility] PCO Associate Professional Member Role: PCP Address: Address: [address] [place] [address], [address]rd Floor [place], [place] [address] Name: Lisa Awad RN Position: S RN Member Role: Primary Care Nurse Name: Elly Rodriges RN Position: [facility] RN Member Role: Primary Care Nurse Care Team Related Persons Name: CHARLINE DIOP Address: [place] [address] Name: ELDER ANDERSON Address: home [address] [facility] [address] [place] [address] Name: MAEGAN ANDERSON Address: home [address] [place] [address]
--- OUTSIDE RECORDS SUMMARY | 2024-03-09 07:32 | XMS_ITS | Continuity of Care Document ---
Author Organization [facility] Adult Address [address] [place] [address]- Care Team Providers Care Numerical Control Machine Operator Name Role Phone Tonja TOURE, Jeannette Olivera Primary Care Physicia n Encounter [facility] Date(s): 03/04/21 - 04/03/21 [facility] Adult [address] [place] [id number]- Allergies, Adverse Reactions, Alerts Substance Reaction Severity [...] 03/13/21 9:18:00 EDT, Route to Pharmacy Electronically, [facility]/pharmacy #[id number], Partial fill upon patient request if the prescription is for a schedule II opioid drug.... Start Date: 03/13/21 Status: Ordered omeprazole 20 mg oral delayed release tablet 1 tablet = 20 mg, By Mouth, Daily, # 90 tablet, 1 Refills, Maintenance, 08/23/20 13:22:00 EST, CR Tablet, [facility]/pharmacy #[id number], Partial fill upon patient request if the prescription is for a schedule II opioid drug., 170, cm, 02/02/21 6:19:00 EST, Lia... Start Date: 08/23/20 Status: Ordered ProAir HFA [...]
--- OUTSIDE RECORDS SUMMARY | 2024-03-09 07:32 | XMS_ITS | Continuity of Care Document ---
Author Organization [facility] Adult Address [address] [place] [address]- Care Team Providers Care Handbag Finisher Name Role Phone Fanny TOURE, Rhonda Primary Care Physician Encounter [facility] Date(s): 05/02/22 - 06/01/22 [facility] Adult [address] [place] [id number]- Allergies, Adverse Reactions, Alerts Substance Reaction Severity [...] 8.5 each, 5 Refills, 02/05/22 13:07:00 EDT, [facility]/pharmacy #1234, 17, 2 puffs Inhalation Every [...] 1 Refills, Maintenance, 06/27/21 14:24:00 EST, Cream, [facility]/pharmacy #1234, Partial fill upon patient request if the prescription is for a schedule II opioid drug., 1 application Rectally 2 times a day, 1... Start Date: 06/27/21 Status: Ordered atorvastatin 20 mg oral tablet 1 tablet = 20 mg, By Mouth, Daily, # 30 tablet, 5 Refills, Maintenance, 11/17/21 19:20:00 EDT, Tablet, [facility]/pharmacy #1234, Partial fill upon patient request if the prescription is for a schedule II opioid drug., 170, cm, 11/15/21 11:23:00 EDT, Height,... Start Date: 11/17/21 Status: Ordered atorvastatin 20 mg oral tablet See Instructions, TAKE 1 TABLET BY MOUTH EVERY DAY, # 90 tablet, 1 Refills, [id number], 170, cm, 12/17/21 8:41:00 EDT, Height, 50, [...] 2 Refills, Maintenance, 09/24/21 11:18:00 EST, Cream, [facility]/pharmacy #1234, Partial fill [...] FOR CONGESTION, # 30 Unknown, 3 Refills, [id number], 30, INSTILL 2 SPRAYS INTO EACH NOSTRIL 3 TIMES A DAY NEEDED FOR CONGESTION, 170, cm, 12/31/21 8:21:00 EDT, Height... Start Date: 03/03/22 Status: Ordered lisinopril 10 mg oral tablet 1, tablet, By Mouth, Daily, # 90 tablet, Refills 1, Tot. Refills 1, Maintenance, 02/16/22 16:25:00 EDT, [id number], 170, cm, 12/31/21 8:21:00 EDT, Height, 50, kg, 11/15/21 11:23:00 EDT, Dry Weight Start Date: 02/16/22 Status: Ordered Nicotrol Inhaler 10 mg inhalation device See Instructions, USE 6 CARTRIDGES PER DAY, # 168 Unknown, 0 Refills, Maintenance, 02/03/22 9:21:00EDT, [facility]/pharmacy #1234, 28, USE 6 CARTRIDGES PER DAY, 170, cm, 12/31/21 8:21:00 EDT, Height, 50, kg, 11/15/21 11:23:00 EDT, Dry Weight Start Date: 02/03/22 Status: Ordered oxyCODONE 10 mg oral tablet 1 tablet = 10 mg, By Mouth, Every 6 hours, PRN as needed for severe pain, fill on 05/30/22, # 112 tablet, 0 Refills, Maintenance, 05/29/22 13:11:00 EST, Tablet, [facility]/pharmacy #1234, Partial fill upon patient request if the prescription is for a schedul... Start Date: 05/29/22 Stop Date: 06/26/22 Status: Ordered OxyCONTIN 10 mg oral tablet, extended release 10 mg, 1, tablet, By Mouth, Every 12 hours, fill on 05/30/22, # 56 tablet, Refills 0, Tot. Refills 0, Maintenance, 05/29/22 13:11:00 EST, Route to Pharmacy Electronically, [facility]/pharmacy #1234, in addition to his IR oxycodone, 170, cm, 04/10/22 14:30:00... Start Date: 05/29/22 Stop Date: 06/26/22 Status: Ordered Problem List Condition Confirmation Course [...] Team Personnel Name: Rhonda Escobedo NP Position: [facility] PCO Associate Professional Member Role: PCP Address: Address: [address] [place] [address], [address] Floor [place], [place] [address] Name: Lisa Awad RN Position: S RN Member Role: Primary Care Nurse Name: Elly Rodriges RN Position: [facility] RN Member Role: Primary Care Nurse Care Team Related Persons Name: CHARLINE DIOP Address: [place] [address] Name: ELDER ANDERSON Address: home [address] [facility] [address] [place] [address] Name: MAEGAN ANDERSON Address: home [address] [place] [address]
--- OUTSIDE RECORDS SUMMARY | 2024-03-09 07:32 | XMS_ITS | Continuity of Care Document ---
Author Organization [facility] Adult Address [address] [place] [address]- Care Team Providers Care Mortgage Manager Name Role Phone Tonja TOURE, Jeannette Olivera Primary Care Physicia n En[place] [facility] [place](s): 06/21/21 - 07/21/21 [facility] Adult [address] [place] [address]- [place] Allergies, Adverse Reactions, Alerts Substance Reaction [...] 1 Refills, Maintenance, 06/27/21 14:24:00 EST, Cream, [facility]/pharmacy #[id number], Partial fill upon patient request if the prescription is for a schedule II opioid drug., 1 application Rectally 2 times a day, 1... Start Date: 06/27/21 Status: Ordered Anusol-HC 2.5% cream with applicator 1 application, Rectally, 2 times a day, # 30 Gm, 1 Refills, Maintenance, 06/27/21 14:24:00 EST, Cream, [facility]/pharmacy #1234, Partial fill upon patient request if the prescription is for a schedule II opioid drug., 1 application Rectally 2 times a day, 1... Start Date: 06/27/21 Status: Ordered atorvastatin 20 mg oral tablet 1 tablet = 20 mg, By Mouth, Daily, # 30 tablet, 5 Refills, Maintenance, 06/19/21 8:09:00 EST, Tablet, [facility]/pharmacy #1234, Partial fill upon patient request [...] 5 Refills, Maintenance, 07/03/21 10:04:00 EST, Tablet, [facility]/pharmacy #1234, Partial fill upon patient request [...]
--- OUTSIDE RECORDS SUMMARY | 2024-03-09 07:32 | XMS_ITS | Continuity of Care Document ---
Author Organization [facility] Adult Address [address] [place] [address]- Care Team Providers Care Sap Gatherer Name Role Phone Tonja TOURE, Jeannette Olivera Primary Care Physicia n [place] [facility] [place](s): 12/31/20 - 01/07/21 [facility] Adult [address] [place] [address]- [place] Encounter Diagnosis Hypertension(Discharge Diagnosis) - 12/31/20 Bradycardia(Discharge Diagnosis) - 12/31/20 Chronic right shoulder pain(Discharge Diagnosis) - 12/31/20 Anxiety(Discharge Diagnosis) - 12/31/20 Chronic back pain(Discharge Diagnosis) - 12/31/20 Chronic neck pain(Discharge Diagnosis) - 12/31/20 Tobacco use disorder(Discharge Diagnosis) - 12/31/20 Multiple lung nodules(Discharge Diagnosis) - 12/31/20 Opioid use disorder, severe, in sustained remission(Discharge Diagnosis) - 12/31/20 Attending Physician: Tonja TOURE, Jeannette Olivera Allergies, [...] 12/31/20 9:59:00 EDT, Route to Pharmacy Electronically, [facility]/pharmacy #[id number], Partialfill upon patient request if the prescription [...] Refills, Maintenance, 08/23/20 13:22:00 EST, CR Tablet, [facility]/pharmacy #1234, Partial fill upon patient request if the prescription is for a schedule II opioid drug., 170, cm, 08/21/20 6:19:00 EST, Heigh... Start Date: 08/23/20 Status: Ordered ProAir HFA 90 mcg/inh inhalation aerosol 2 puffs, Inhalation, Every 4 hours, PRN NEEDED FOR WHEEZE, # 8.5 Unknown, 5 Refills, Maintenance, 10/15/20 8:28:00 EDT, [facility]/pharmacy #1234, 17, 2 puffs Inhalation Every [...] the shoulder(Confirmed) Active Tobacco use disorder(Confirmed) Active Diagnosis Diagnosis Type Effective Dates Health Status Clinical Service Informant Hypertension Discharge Diagnosis 12/31/20 Bradycardia Discharge Diagnosis 12/31/20 Chronic right shoulder pain Discharge Diagnosis 12/31/20 Anxiety Discharge Diagnosis 12/31/20 Chronic back pain Discharge Diagnosis 12/31/20 Chronic neck pain Discharge Diagnosis 12/31/20 Tobacco use disorder Discharge Diagnosis 12/31/20 Multiple lung nodules Discharge Diagnosis 12/31/20 Opioid use disorder, severe, in sustained remission Discharge Diagnosis 12/31/20 Vital Signs Most recent to oldest [Reference Range]: 1 2 3 Height 170 cm (12/31/20 9:56 AM) 170 cm (12/31/20 9:54 AM) 170 cm (12/31/20 9:37 AM) Weight 56.3 kg (12/31/20 9:37 AM) Oxygen Saturation [94-100 %] 99 % (12/31/20 9:37 AM) Pulse Rate [55-90 bpm] 54 bpm *L* (12/31/20 9:54 AM) 42 bpm *L* (12/31/20 9:37 AM) Body Mass Index [18.5-24.99] 19.48 (12/31/20 9:37 AM) Blood Pressure [90-138/55-84 mm Hg] 160/80mm Hg *H* (12/31/20 9:56 AM) 194/80mm Hg *H* (12/31/20 9:37 AM) Mode of Delivery (Oxygen) Room air (12/31/20 9:37 AM) Blood pressure sites Arm, left (12/31/20 9:37 AM) Weight Obtained Via Standing scale (12/31/20 9:37 AM) Social History Social History Type Response Tobacco Other: Smokes about 12 cigarettes daily. Prior to this, smoking about 1 PPD for 35 years.. Sex
--- OUTSIDE RECORDS SUMMARY | 2024-03-09 07:32 | XMS_ITS | Continuity of Care Document ---
Author Organization [facility] Adult Address [address] [place] [address]- Care Team Providers Care Access Assoc Name Role Phone Fanny UNIT ASSEMBLER, Rhonda Primary Care Physician [phone] Encounter [facility] Date(s): 06/18/22 - 07/18/22 [facility] Adult [address] [place] [address]- Allergies, Adverse Reactions, Alerts Substance Reaction Severity [...] 8.5 each, 5 Refills, Maintenance,06/04/22 13:05:00 EST, [id number], 30, TAKE 2 PUFFS BY MOUTH EVERY 4 HOURS NEEDED FOR WHEEZING, 170, cm, 04/10/22 14:30:00 EDT, Height, 50, kg,... Start Date: 06/04/22 Status: Ordered amLODIPine 5 mg oral tablet 1 tablet, By Mouth, Daily, # 90 tablet, 1 Refills, Maintenance, 06/23/22 9:11:00 EST, [id number], 170, cm, 04/10/22 14:30:00 EDT, Height, 50, [...] Stop 12/15/22 11:17:00 EDT, 06/18/22 11:17:00 EST, [facility]/pharmacy #1234, 170, cm, 04/10/22 14:30:00 EDT, [...] 2 Refills, Maintenance, 09/24/21 11:18:00 EST, Cream, [facility]/pharmacy #1234, Partial fill upon patient request if the prescription is for a schedule II opioid drug., 1 application Topically 3 times a day,... Start Date: 09/24/21 Status: Ordered hydrocortisone topical 25 mg suppository 1 supp = 25 mg, Rectally, 2 times a day, # 28 supp, 0 Refills, Maintenance, 10/02/21 13:05:00 EDT, Suppository, [facility]/pharmacy #1234, Partial fill upon patient request if the prescription is for a schedule II opioid drug., 170, cm, 10/02/21 10:36:00 EDT... Start Date: 10/02/21 Stop Date: 10/16/21 Status: Ordered ipratropium nasal 21 mcg/inh spray See Instructions, INSTILL 2 SPRAYS INTO EACH NOSTRIL 3 TIMES A DAY NEEDED FOR CONGESTION, # 30 Unknown, 3 Refills, [id number], 30, INSTILL 2 SPRAYS INTO EACH NOSTRIL 3 TIMES A DAY NEEDED FOR CONGESTION, 170, cm, 12/31/21 8:21:00 EDT, Height... Start Date: 03/03/22 Status: Ordered lisinopril 10 mg oral tablet 1, tablet, By Mouth, Daily, # 90 tablet, Refills 1, Tot. Refills 1, Maintenance, 02/16/22 16:25:00 EDT, Route to Pharmacy Electronically, [facility]/pharmacy #1234, 170, cm, 12/31/21 8:21:00 EDT, Height, 50, kg, 11/15/21 11:23:00 EDT, Dry Weight Start Date: 02/16/22 Status: Ordered Nicotrol Inhaler 10 mg inhalation device See Instructions, USE 6 CARTRIDGES PER DAY, # 168 Unknown, 0 Refills, Maintenance, 02/03/22 9:21:00EDT, [facility]/pharmacy #1234, 28, USE 6 CARTRIDGES PER DAY, 170, cm, 12/31/21 8:21:00 EDT, Height, 50, kg, 11/15/21 11:23:00 EDT, Dry Weight Start Date: 02/03/22 Status: Ordered oxyCODONE 10 mg oral tablet 1 tablet = 10 mg, By Mouth, Every 6 hours, PRN as needed for severe pain, fill on 06/27/22, # 112 tablet, 0 Refills, Maintenance, 06/27/22 7:04:00 EST, Tablet, [facility]/pharmacy #1234, Partial fill upon patient request if the prescription is for a schedule... Start Date: 06/27/22 Stop Date: 07/25/22 Status: Ordered OxyCONTIN 10 mg oral tablet, extended release 10 mg, 1, tablet, By Mouth, Every 12 hours, fill on 06/27/22, # 56 tablet, Refills 0, Tot. Refills 0, Maintenance, 06/27/22 7:04:00 EST, Route to Pharmacy Electronically, [facility]/pharmacy #[id number], in addition to his IR oxycodone, 170, cm, 04/10/22 14:30:00 E... Start Date: 06/27/22 Stop Date: 07/25/22 Status: Ordered Problem List Condition Confirmation Course [...] Team Personnel Name: Rhonda Escobedo NP Position: [facility] PCO Associate Professional Member Role: PCP Address: Address: [address] [place] [address], [address] [place], [place] [address]R[place] Name: Lisa Awad RN Position: [facility] RN Member Role: Primary Care Nurse Name: Elly Rodriges RN Position: [facility] RN Member Role: Primary Care Nurse Care Team Related Persons Name: DIOP CHARLINE Address: [place] [address] Name: ELDER ANDERSON Address: home [address] [place] [address] Name: MAEGAN ANDERSON Address: home [address] [place] [address]
--- OUTSIDE RECORDS SUMMARY | 2024-03-09 07:32 | XMS_ITS | Continuity of Care Document ---
Author Organization [facility] Adult Address [address] [place] [address]- Care Team Providers Care Buttonhole Facer Name Role Phone Tonja TOURE, Jeannette Olivera Primary Care Physicia n Encounter [facility] Date(s): 06/28/21 - 07/28/21 [facility] Adult [address] [place] [address]- [place] Allergies, Adverse Reactions, Alerts Substance Reaction [...] 1 Refills, Maintenance, 06/27/21 14:24:00 EST, Cream, [facility]/pharmacy #1234, Partial fill upon patient request if the prescription is for a schedule II opioid drug., 1 application Rectally 2 times a day, 1... Start Date: 06/27/21 Status: Ordered Anusol-HC 2.5% cream with applicator 1 application, Rectally, 2 times a day, # 30 Gm, 1 Refills, Maintenance, 06/27/21 14:24:00 EST, Cream, [facility]/pharmacy #1234, Partial fill upon patient request if the prescription is for a schedule II opioid drug., 1 application Rectally 2 times a day, 1... Start Date: 06/27/21 Status: Ordered atorvastatin 20 mg oral tablet 1 tablet = 20 mg, By Mouth, Daily, # 30 tablet, 5 Refills, Maintenance, 06/19/21 8:09:00 EST, Tablet, [facility]/pharmacy #1234, Partial fill upon [...] 5 Refills, Maintenance, 07/03/21 10:04:00 EST, Tablet, [facility]/pharmacy #1234, Partial fill upon [...]
--- OUTSIDE RECORDS SUMMARY | 2024-03-09 07:32 | XMS_ITS | Continuity of Care Document ---
Author Organization [facility] Adult Address [address] [place] [address]- Care Team Providers Care Stitcher Hand Name Role Phone Fanny TOURE, Rhonda Primary Care Physician [phone] Encounter [facility] Date(s): 05/01/23 - 05/31/23 [facility] Adult [address] [place] [address]- Allergies, Adverse Reactions, Alerts Substance Reaction Severity [...] each, 5 Refills, Maintenance, 05/18/23 13:33:00 EDT, [facility] ST[facility]390, 25, INHALE 1 PUFF 4 TIMES A DAY NEEDED FOR COUGH, 170, cm, 05/05/23 12:54:00 EDT, Height, 50, kg, 11/15/21 11:2... Start Date: 05/18/23 Status: Ordered amLODIPine 5 mg oral tablet 1 tablet, By Mouth, Daily, # 90 tablet, 1 Refills, Maintenance, 12/04/22 8:21:00 EDT, [facility]/pharmacy #1972, 170, cm, 08/05/22 [...] EDT, [facility] 11986, 90, INSTILL 2 SPRAYS INTO EACH NOSTRIL 3 TIMES A DAY NEEDED FOR CONGESTION, 1... Start Date: 12/11/22 Status: Ordered lisinopril 10 mg oral tablet 1, tablet, By Mouth, Daily, # 90 tablet, Refills 1, Maintenance, 05/01/23 7:04:00 EDT, Route to Pharmacy Electronically, [facility] [id number], 170, cm, 02/06/23 9:02:00 EDT, Height, 50, [...] tablet, By Mouth, Every 6 hours, PRN, PRINCIPAL WEB DEVELOPER checked. Fill 05/26 2023, # 224 tablet, Refills 0, Tot. Refills 0, Maintenance, as needed for pain, 05/24/23 8:15:00 EST, Route to Pharmacy Electronically, [facility]/pharmacy #1972, Partial fill upon patien... Start Date: 05/24/23 Stop Date: 06/21/23 Status: Ordered OxyCONTIN 20 mg oral tablet, extended release 20 mg, 1, tablet, By Mouth, Every 12 hours, vp clinical chacked fill 05/26/2023, # 56 tablet, Refills 0, Tot. Refills 0, Maintenance, 05/24/23 8:17:00 EST, Route to Pharmacy Electronically, [facility]/pharmacy #1972, Partial [...] Care Nurse Name: Rhonda Escobedo NP Position: [facility] PCO Associate Professional Member Role: PCP Address: Address: [address] [place] [address], [address] [place] [address]- Name: Yue Delgado RN Position: S RN Member Role: Primary Care Nurse Name: Lisa Awad RN Position: S RN Member Role: Primary Care Nurse Name: Elly Rodriges RN Position: [facility] SN RN Member Role: Primary Care Nurse Care Team Related Persons Name: DIOP CHARLINE Address: [place] [address] Name: ELDER ANDERSON Address: home [address] [place] [address] Name: MAEGAN ANDERSON Address: home [address] [place] [address]
--- OUTSIDE RECORDS SUMMARY | 2024-03-09 07:32 | XMS_ITS | Continuity of Care Document ---
Author Organization [facility] Adult Address [address] [place] [address]- Care Team Providers Care Consultant Education Name Role Phone Tonja TOURE, Jeannette Olivera Primary Care Physicia n [place] [facility] [place] 05/10/21 - 06/09/21 [facility] Adult [address] [place] [address]- Attending Physician: Sam Carter Admitting Physician: Admtr, [...] 3 Refills, Maintenance, 03/07/21 15:26:00 EDT, Tablet, [facility]/pharmacy [...] each, 5 Refills, Maintenance, 03/01/21 12:03:00 EDT, [facility]/pharmacy #[id number], 2 puffs [...]
--- OUTSIDE RECORDS SUMMARY | 2024-03-09 07:32 | XMS_ITS | Continuity of Care Document ---
Author Organization [facility] Adult Address [address] [place] [address]- Care Team Providers Care Clinical Engineering Manager Name Role Phone Tonja TOURE, Jeannette Olivera Primary Care Physicia n Encounter [facility] [place] Date(s): 12/10/20 - 12/17/20 [facility] Adult [address] [place] [address]- [place] Encounter Diagnosis Dysphagia(Discharge Diagnosis) - 12/10/20 Chronic neck pain(Discharge Diagnosis) - 12/10/20 Attending Physician: Tonja TOURE, Jeannette Olivera Allergies, Adverse Reactions, Alerts Substance Reaction Severity Status morphine 1 combative CONFUSED OUT OF IT Active 1hallucintations, confusion Immunizations Given and Recorded Vaccine Date Status Refusal Reason influ virus vac, H1N1, inactive(oldterm) 08/14/09 Given pneumococcal 23-valent vaccine 08/14/09 Given Medications Back Brace See Instructions, # 1 [...] Refills Start Date: 09/09/07 Status: Ordered lisinopril 2.5 mg oral tablet 1, tablet, By Mouth, Daily, # 90 tablet, Refills 1, Tot. Refills 1, Maintenance, 07/06/20 8:47:00 EST, Route to Pharmacy Electronically, [facility]/pharmacy #[id number], 170, cm, 07/05/20 11:23:00 EST, Height, 57.9, kg, 07/05/20 11:23:00 EST, Dry Weight Start Date: 07/06/20 Status: Ordered Mapap Arthritis Pain 650 mg [...] Refills, Maintenance, 08/23/20 13:22:00 EST, CR Tablet, [facility]/pharmacy #1234, Partial fill upon patient request if the prescription is for a schedule II opioid drug., 170, cm, 08/21/20 6:19:00 EST, Heigh... Start Date: 08/23/20 Status: Ordered ProAir HFA 90 mcg/inh inhalation aerosol 2 puffs, Inhalation, Every 4 hours, PRN NEEDED FOR WHEEZE, # 8.5 Unknown, 5 Refills, Maintenance, 10/15/20 8:28:00 EDT, [facility]/pharmacy #1234, 17, 2 puffs Inhalation Every 4 [...] Dates Health Status Cl inical Service Informant Dysphagia Discharge Diagnosis 12/10/20 Chronic neck pain Discharge Diagnosis 12/10/20 Procedures Procedure Date Related Diagnosis Body Site Status Cervical spinal fusion by an terior technique 2002 Completed Vital Signs Most recent to oldest [Reference Range]: 1 Height 170 cm (12/10/20 3:05 PM) Social History Social History Type Response Smoking Status Current every day karina moore; Type: Cigarettes; Tobacco use times per day: 12 cigerettes a day; Number of years: 35; entered on: 04/16/15 Sex
--- OUTSIDE RECORDS SUMMARY | 2024-03-09 07:32 | XMS_ITS | Continuity of Care Document ---
Author Organization [facility] Adult Address [address] [place] [address]- Care Team Providers Care Housecleaner Floor Name Role Phone Fanny TOURE, Rhonda Primary Care Physician [phone] [place] [facility] [place](s): 11/15/21 - 11/22/21 [facility] Adult [address] [place] [address]- Attending Physician: Jeannette Evangelista NP Allergies, Adverse Reactions, Alerts Substance Reaction [...] FOR WHEEZING, # 8.5 each, 5 Refills, [facility], 17, INHALE 2 PUFFS EVERY 4 HOURS NEEDED FOR WHEEZING, 170, cm, 11/15/21 11:23:00 EDT, Height, 50, kg, 11/15/21 11:23:00 EDT, Dry Weight Start Date: 11/17/21 Status: Ordered amLODIPine 5 mg oral tablet 1 tablet, By Mouth, Daily, # 90 tablet, 0 Refills, [facility], 170, cm, 11/15/21 11:23:00 EDT,Height, 50, kg, [...] 2 Refills, Maintenance, 09/24/21 11:18:00 EST, Cream, [facility]/pharmacy #[id number], Partial fill upon [...] 84 capsule, 0 Refills, Maintenance, 04/15/21 10:30:00EDT, [facility]/pharmacy #1234, Partial fill upon patient request if the prescription is for a schedule IIopioid drug., use 6 cartridges per day, 170, cm, 09... Start Date: 04/15/21 Status: Ordered oxyCODONE 10 mg oral tablet 1 tablet = 10 mg, By Mouth, Every 6 hours, PRN as needed for severe pain, # 120 tablet, 0 Refills, Maintenance, 11/18/21 8:27:00 EDT, Tablet, [facility]/pharmacy #1234, Partial fill upon [...]
--- OUTSIDE RECORDS SUMMARY | 2024-03-09 07:32 | XMS_ITS | Continuity of Care Document ---
Author Organization [facility] Adult Address [address] [place] [address]- Care Team Providers Care Tow Motor Operator Name Role Phone Fanny TOURE, Rhonda Primary Care Physician [phone] [facility]counter [facility] Date(s): 10/11/21 - 11/10/21 [facility] Adult [address] [place] [address]- Allergies, Adverse Reactions, Alerts Substance Reaction Severity [...] 10/17/21 8:30:00 EDT, Route to Pharmacy Electronically, [facility]/pharmacy #1234, Partial fill upon patient request ifthe prescription is for a schedule II opioid drug.,... Start Date: 10/17/21 Status: Ordered Anusol-HC 2.5% cream with applicator 1 application, Rectally, 2 times a day, # 30 Gm, 1 Refills, Maintenance, 09/24/21 13:25:00 EST, Cream, [facility]/pharmacy #1234, Partial fill upon patient request if the prescription is for a schedule II opioid drug., 1 application Rectally 2 times a day, 1... Start Date: 09/24/21 Status: Ordered Anusol-HC 2.5% cream with applicator 1 application, Rectally, 2 times a day, # 30 Gm, 1 Refills, Maintenance, 06/27/21 14:24:00 EST, Cream, [facility]/pharmacy #1234, Partial fill upon patient request if the prescription is for a schedule II opioid drug., 1 application Rectally 2 times a day, 1... Start Date: 06/27/21 Status: Ordered atorvastatin 20 mg oral tablet 1 tablet = 20 mg, By Mouth, Daily, # 30 tablet, 5 Refills, Maintenance, 06/19/21 8:09:00 EST, Tablet, [facility]/pharmacy #1234, Partial fill upon [...] 11/08/21 9:10:00 EDT, Route to Pharmacy Electronically, [facility]/pharmacy #1234, Partial fill upon patient request... Start Date: 11/08/21 Stop Date: 11/15/21 Status: Ordered ProAir HFA 90 mcg/inh inhalation aerosol 2 puffs, Inhalation, Every 4 hours, PRN NEEDED FOR WHEEZE, # 1 each, 5 Refills, Maintenance, 07/02/21 8:53:00 EST, [facility]/pharmacy #1234, 2 puffs Inhalation Every [...]
--- OUTSIDE RECORDS SUMMARY | 2024-03-09 07:32 | XMS_ITS | Continuity of Care Document ---
Author Organization [facility] Address Unknown Care Team Providers Care Optometric Tech Name Role Phone Tonja TOURE, Jeannette Olivera Primary Care Physicia n Encounter [facility] Date(s): 05/21/21 - 06/20/21 [facility] Allergies, Adverse Reactions, Alerts [...] Pedro rded influenza virus vaccine, inactivated 07/04/08 Perdo rded SARS-CoV-2 (COVID-19) Ad26 vaccine 10/21/20 Record [...] 84 capsule, 0 Refills, Maintenance, 04/15/21 10:30:00EDT, [facility]/pharmacy #[id number], [...]
--- OUTSIDE RECORDS SUMMARY | 2024-03-09 07:32 | XMS_ITS | Continuity of Care Document ---
Author Organization [facility] Address [address] [place] [address], [address] [place] [address]- Care Team Providers Care Welt Cutter Name Role Phone Fanny DIRECTOR INDEPENDENT, Rhonda Primary Care Physician [phone] [facility]counter [facility] Date(s): 04/10/22 - 05/10/22 [facility] [address] [place] [address], [address] [place], [place] [address] Allergies, Adverse Reactions, Alerts Substance Reaction Severity [...] EVERY DAY, # 90 tablet, 1 Refills, [facility] 8[facility]14, 170, cm, 12/17/21 8:41:00 EDT, Height, 50, [...] 2 Refills, Maintenance, 09/24/21 11:18:00 EST, Cream, [facility]/pharmacy #1234, Partial fill upon patient request [...] FOR CONGESTION, # 30 Unknown, 3 Refills, [facility] 03947, 30, INSTILL 2 SPRAYS INTO EACH NOSTRIL 3 TIMES A DAY NEEDED FOR CONGESTION, 170, cm, 12/31/21 8:21:00 EDT, Height... Start Date: 03/03/22 Status: Ordered lisinopril 10 mg oral tablet 1, tablet, By Mouth, Daily, # 90 tablet, Refills 1, Tot. Refills 1, Maintenance, 02/16/22 16:25:00 EDT, Route to Pharmacy Electronically, [facility]/pharmacy #1234, 170, cm, 12/31/21 8:21:00 EDT, Height, 50, kg, 11/15/21 11:23:00 EDT, Dry Weight Start Date: 02/16/22 Status: Ordered Nicotrol Inhaler 10 mg inhalation device See Instructions, USE 6 CARTRIDGES PER DAY, # 168 Unknown, 0 Refills, Maintenance, 02/03/22 9:21:00EDT, [facility]/pharmacy #1234, 28, USE 6 CARTRIDGES PER DAY, 170, cm, 12/31/21 8:21:00 EDT, Height, 50, kg, 11/15/21 11:23:00 EDT, Dry Weight Start Date: 02/03/22 Status: Ordered oxyCODONE 10 mg oral tablet 1 tablet = 10 mg, By Mouth, Every 6 hours, PRN as needed for severe pain, fill on 05/02/22, # 112 tablet, 0 Refills, Maintenance, 04/17/22 8:05:00 EDT, Tablet, [facility]/pharmacy #1234, Partial fill upon patient request if the prescription is for a schedule... Start Date: 04/17/22 Stop Date: 05/15/22 Status: Ordered OxyCONTIN 10 mg oral tablet, extended release 10 mg, 1, tablet, By Mouth, Every 12 hours, fill on 05/02/22, # 56 tablet, Refills 0, Tot. Refills 0, Maintenance, 04/17/22 8:05:00 EDT, Route to Pharmacy Electronically, [facility]/pharmacy #[id number], in addition to his IR oxycodone, 170, [...] Name: Rhonda Escobedo NP Address: Address: [address], [address]rd [address] [place], [place] [address]
--- OUTSIDE RECORDS SUMMARY | 2024-03-09 07:32 | XMS_ITS | Continuity of Care Document ---
Author Organization [facility] Address [address] [place] [address]- Care Team Providers Care Crossing Flagman Name Role Phone Chaim Templeton MD Primary Care Physician Encounter [facility] Date(s): 09/20/20 - 10/20/20 [facility] [address] [place] [id number] Attending Physician: Sam Carter Admitting Physician: AdmSam enriquez Referring Physician: AdmtrSam Allergies, Adverse Reactions, Alerts Substance Reaction Severity Status morphine 1 combative CONFUSED OUT OF IT Active 1hallucintations, confusion Immunizations Given and Recorded Vaccine Date Status Refusal Reason influ virus vac, H1N1, inactive(oldterm) 08/14/09 Given pneumococcal 23-valent vaccine 08/14/09 Given Medications Acetaminophen By Mouth, PRN Pain , Moderate, 0 Refills, Maintenance, 09/28/20 9:08:00 EST, Partial fill upon patient request if the prescription is for a schedule II opioid drug. Start Date: 09/28/20 Status: Ordered Back Brace See Instructions, # 1 each, Refills 0, Tot. Refills 0, Maintenance, Use for low back support, 07/06/20 14:42:00 EST, Supply Start Date: 07/06/20 Status: Ordered buprenorphine-naloxone 2 mg-0.5 mg sublingual film 2 film, Sublingual, Daily, dissolve under the tongue, 0 Refills, Maintenance, 09/20/19 9:05:00 EST,Film Start Date: 09/20/19 Status: Ordered clonazepam 2 mg oral tablet 2 mg, 1, tablet, By Mouth, 3 times a day, 1 mg in AM and afternoon; 2 mg at bedtime, 0 Refills Start Date: 09/09/07 Status: Ordered lisinopril 2.5 mg oral tablet 1, tablet, By Mouth, Daily, # 90 tablet, Refills 1, Tot. Refills 1, Maintenance, 07/06/20 8:47:00 EST, Route to Pharmacy Electronically, [facility]/pharmacy #1234, 170, cm, 07/05/20 11:23:00 EST, Height, 57.9, kg, 07/05/20 11:23:00 EST, Dry Weight Start Date: 07/06/20 Status: Ordered meloxicam 15 mg oral tablet 1 tablet = 15 mg, By Mouth, Daily, 0 Refills, Maintenance, 08/21/20 6:27:00 EST, Partial fill upon patient request if the prescription is for a schedule II opioid drug. Start Date: 08/21/20 Status: Ordered omeprazole 20 mg oral delayed release tablet 1 tablet = 20 mg, By Mouth, Daily, # 90 tablet, 1 Refills, Maintenance, 08/23/20 13:22:00 EST, CR Tablet, [facility]/pharmacy #1234, Partial fill upon patient request if the prescription is for a schedule II opioid drug., 170, cm, 08/21/20 6:19:00 EST, Heigh... Start Date: 08/23/20 Status: Ordered ProAir HFA 90 mcg/inh inhalation aerosol 2 puffs, Inhalation, Every 4 hours, PRN NEEDED FOR WHEEZE, # 8.5 Unknown, 5 Refills, Maintenance, 10/15/20 8:28:00 EDT, [facility]/pharmacy #1234, 17, [...] of left knee(Confirmed) Active Knee pain(Confirmed) Active Lumbar disc herniation with radiculopathy(Confirmed) Active Lung mass(Confirmed) Active Medial epicondylitis, right [...]
--- OUTSIDE RECORDS SUMMARY | 2024-03-09 07:32 | XMS_ITS | Continuity of Care Document ---
Author Organization [facility] Address [address] [place] [address]- Care Team Providers Care Director Of Strategic Alliances Name Role Phone Fanny TOURE, Rhonda Primary Care Physician Encounter [facility] Date(s): 01/08/24 - 01/15/24 [facility] [address] [place] [address]- Attending Physician: Not on Staff, Attending MD Referring Physician: Gail Escobedo DO Allergies, Adverse Reactions, Alerts Substance Reaction [...] Refills, Maintenance, 06/09/23 9:12:00 EST, [facility], 170, cm, 06/03/23 14:00:00 EST, Height, 51, kg, 06/03/23 14:00:00 EST, Dry Weight Start Date: 06/09/23 Status: Ordered atorvastatin 20 mg oral tablet 1 tablet, By Mouth, Daily, # 90 tablet, 1 Refills, Maintenance, 07/29/23 9:02:00 EST, [facility], 170, cm, 06/23/23 10:13:00 EST, Height, 51, kg, 06/03/23 14:00:00 EST, Dry Weight Start Date: 07/29/23 Status: Ordered celecoxib 200 mg oral capsule 1 capsule = 200 mg, By Mouth, 2 times a day, # 14 capsule, 0 Refills, Maintenance, 06/04/23 13:40:00 EST, Capsule, [facility], Partial fill upon patient [...] 06/04/23 13:40:00 EST, Route to Pharmacy Electronically, [facility], Partial fill uponpatient request [...] Unknown, 5 Refills, Maintenance, 12/11/22 19:25:00 EDT, [facility] 17696, 90, INSTILL 2 SPRAYS INTO EACH NOSTRIL 3 TIMES A DAY NEEDED FOR CONGESTION, 1... Start Date: 12/11/22 Status: Ordered lisinopril 10 mg oral tablet 1, tablet, By Mouth, Daily, # 90 tablet, Refills 1, Maintenance, 09/07/23 9:20:00 EST, Route to Pharmacy Electronically, [facility] 297[facility], 170, cm, 07/29/23 14:04:00 EST, Height, 51, kg, 06/03/23 14:00:00 EST, Dry Weight Start Date: 09/07/23 Status: Ordered metoprolol 25 mg oral tablet 12.5 mg, 0.5, tablet, By Mouth, Every 12 hours, # 30 tablet, Refills 0, Tot. Refills 0, Maintenance, 06/04/23 13:43:00 EST, Route to Pharmacy Electronically, [facility], Partial fill upon patient request if the prescription is for a sche... Start Date: 06/04/23 Stop Date: 07/04/23 Status: Ordered nicotine 14 mg/24 hr transdermal film, extended release 1 patch, Topically, Daily, # 28 patch, 0 Refills, Maintenance, 07/27/23 14:23:00 EST, [facility] 71139, 28, APPLY 1 PATCH TOPICALLY DAILY, 170, cm, 06/23/23 10:13:00 EST, Height, 51, kg, 06/03/23 14:00:00 EST, Dry Weight Start Date: 07/27/23 Status: Ordered oxyCODONE 10 mg oral tablet 1 tablet = 10 mg, By Mouth, Every 6 hours, PRN as needed for pain, sawsmith assessed fill 01/05/24, # 112tablet, 0 Refills, Maintenance, 12/26/23 6:35:00 EDT, Tablet, [facility]/pharmacy #1972, Partial fill uponpatient request if the prescription is for a schedu... Start Date: 12/26/23 Stop Date: 01/23/24 Status: Ordered OxyCONTIN 20 mg oral tablet, extended release 20 mg, 1, tablet, By Mouth, Every 12 hours, sawsmith chacked fill 01/05/24, # 56 tablet, Refills 0, Tot. Refills 0, Maintenance, 12/26/23 6:35:00 EDT, Route to [facility]acy Electronically, [facility], Partial fill upon patient request if the prescriptio... 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, M25.559 Rollnitesh burnette, 06/24/23 12:55:00 EST, Supply Start Date: [...] Confirmed Active Tobacco use disorder Confirmed Active 54891 r lung wedge resection Vital Signs Most recent to oldest [Reference Range]: 1 Height 170 cm (01/08/24 10:04 AM) Weight Obtained Via Patient/family state d (01/08/24 10:04 AM) Social History Social History Type Response [...] Professional Member Role: PCP Address: Address: [address] [place] [address], [address]rd [address] [place], [place] [address] Name: Yue Delgado RN Position: [facility] RN [...] Persons Name: CHARLINE DIOP Address: [place] [address] Name: ELDER ANDERSON Address: home [address] [place] [address] Name: MAEGAN ANDERSON Address: home [address] [place] [address]
--- OUTSIDE RECORDS SUMMARY | 2024-03-09 07:32 | XMS_ITS | Continuity of Care Document ---
Author Organization [facility] Address [address] [place] [address]- Care Team Providers Care Gauge Checker Name Role Phone Tonja TOURE, Jeannette Olivera Primary Care Physicia n Encounter [facility] Date(s): 06/28/21 - 07/28/21 [facility] [address] [place] [address]- [place] Allergies, Adverse Reactions, Alerts Substance Reaction [...] 1 Refills, Maintenance, 06/27/21 14:24:00 EST, Cream, [facility]/pharmacy #1234, Partial fill upon patient request if the prescription is for a schedule II opioid drug., 1 application Rectally 2 times a day, 1... Start Date: 06/27/21 Status: Ordered Anusol-HC 2.5% cream with applicator 1 application, Rectally, 2 times a day, # 30 Gm, 1 Refills, Maintenance, 06/27/21 14:24:00 EST, Cream, [facility]/pharmacy #1234, Partial fill upon patient request if the prescription is for a schedule II opioid drug., 1 application Rectally 2 times a day, 1... Start Date: 06/27/21 Status: Ordered atorvastatin 20 mg oral tablet 1 tablet = 20 mg, By Mouth, Daily, # 30 tablet, 5 Refills, Maintenance, 06/19/21 8:09:00 EST, Tablet, [facility]/pharmacy #1234, Partial fill upon [...] 5 Refills, Maintenance, 07/03/21 10:04:00 EST, Tablet, [facility]/pharmacy #1234, Partial fill upon [...]
--- OUTSIDE RECORDS SUMMARY | 2024-03-09 07:32 | XMS_ITS | Continuity of Care Document ---
Author Organization [facility] Address [address] [place] [address] [address]ri, [address] [place] [address]- Care Team Providers Care Safety And Health Consultant Name Role Phone Chaim Templeton MD Primary Care Physician Encounter [facility] Date(s): 07/11/19 - 07/21/19 [facility] [address] [place] [address] Drive, [address] [place] [address]- [facility] Attending Physician: Sam Carter Admitting Physician: Sam [...] 07/14/19 10:49:00 EST, Route to Pharmacy Electronically, [facility]/pharmacy #1234, 170, cm, 07/04/19 9:01:00 EST, Height, 59.4, kg, 04/07/19 15:15:00 EDT, Dry Weight Start Date: 07/14/19 Status: Ordered meloxicam 7.5 mg oral tablet 1 tablet = 7.5 mg, By Mouth, Daily, # 30 tablet, 0 Refills, Maintenance, 07/05/19 14:48:36 EST, Tablet, [facility]/pharmacy #1234, 170, cm, 07/04/19 9:01:50 EST, Height, [...] Replace Required Details, Route to Pharmacy Electronically, [id number]... Start Date: 04/19/19 Status: Ordered Suboxone 8 [...]
--- OUTSIDE RECORDS SUMMARY | 2024-03-09 07:32 | XMS_ITS | Continuity of Care Document ---
Author Organization [facility] Address [address] [place] [address]- Care Team Providers Care Air Pollution Control Engineer Name Role Phone Tonja TOURE, Jeannette Olivera Primary Care Physicia n En[place] [facility] [place]s): 06/24/21 - 07/24/21 [facility] [address] [place] [address]- [place] Allergies, Adverse Reactions, Alerts Substance Reaction [...] 1 Refills, Maintenance, 06/27/21 14:24:00 EST, Cream, [facility]/pharmacy #1234, Partial fill upon patient request if the prescription is for a schedule II opioid drug., 1 application Rectally 2 times a day, 1... Start Date: 06/27/21 Status: Ordered Anusol-HC 2.5% cream with applicator 1 application, Rectally, 2 times a day, # 30 Gm, 1 Refills, Maintenance, 06/27/21 14:24:00 EST, Cream, [facility]/pharmacy #1234, Partial fill upon patient request if the prescription is for a schedule II opioid drug., 1 application Rectally 2 times a day, 1... Start Date: 06/27/21 Status: Ordered atorvastatin 20 mg oral tablet 1 tablet = 20 mg, By Mouth, Daily, # 30 tablet, 5 Refills, Maintenance, 06/19/21 8:09:00 EST, Tablet, [facility]/pharmacy #1234, Partial fill upon [...] 5 Refills, Maintenance, 07/03/21 10:04:00 EST, Tablet, [facility]/pharmacy #1234, Partial fill upon [...]
--- OUTSIDE RECORDS SUMMARY | 2024-03-09 07:32 | XMS_ITS | Continuity of Care Document ---
Author Organization [facility] Address [address] [place] [address]- Care Team Providers Care Police Inspector Name Role Phone Tonja TOURE, Jeannette Olivera Primary Care Physicia n Encounter [facility] Date(s): 03/13/21 - 03/20/21 [facility] [address] [place] [address]- Attending Physician: Tonja TOURE, Jeannette Olivera Allergies, [...] 3 Refills, Maintenance, 03/07/21 15:26:00 EDT, Tablet, [facility]/pharmacy #1234, Partial fill upon patient [...] 03/13/21 9:18:00 EDT, Route to Pharmacy Electronically, [facility]/pharmacy #1234, Partial fill upon patient request if the prescription is for a schedule II opioid drug.... Start Date: 03/13/21 Status: Ordered omeprazole 20 mg oral delayed release tablet 1 tablet = 20 mg, By Mouth, Daily, # 90 tablet, 1 Refills, Maintenance, 08/23/20 13:22:00 EST, CR Tablet, [facility]/pharmacy #1234, Partial fill upon patient request if the prescription is for a schedule II opioid drug., 170, cm, 08/21/20 6:19:00 Lia PINON... Start Date: 08/23/20 Status: Ordered ProAir HFA 90 mcg/inh inhalation aerosol 2 puffs, Inhalation, Every 4 hours, PRN NEEDED FOR WHEEZE, # 1 each, 5 Refills, Maintenance, 03/01/21 12:03:00 EDT, [facility]/pharmacy #1234, 2 puffs Inhalation Every 4 [...] [Reference Range]: 1 2 Height 170 cm (03/13/21 9:07 AM) 170 cm (03/13/21 8:59 AM) Weight 57.4 kg (03/13/21 8:59 AM) Oxygen Saturation [94-100 %] 98 % (03/13/21 8:59 AM) Pulse Rate [55-90 bpm] 55 bpm (03/13/21 8:59 AM) Body Mass Index [18.5-24.99] 19.86 (03/13/21 8:59 AM) Blood Pressure [90-138/55-84 mm Hg] 152/ 71mm Hg *H* (03/13/21 9:07 AM) 164/77mm Hg *H* (03/13/21 8:59 AM) Mode of Delivery (Oxygen) Room air (03/13/21 8:59 AM) Blood pressure sites Arm, right (03/13/21 9:07 AM) Arm, right (03/13/21 8:59 AM) Weight Obtained Via Standing scale (03/13/21 8:59 AM) Social History Social History Type Response Tobacco Other: Smokes about 12 cigarettes daily. Prior to this, smoking about 1 PPD for 35 years.. Sex
--- OUTSIDE RECORDS SUMMARY | 2024-03-09 07:32 | XMS_ITS | Continuity of Care Document ---
Author Organization [facility] Address [address] [place] [address]- Care Team Providers Care Customer Insight Analyst Name Role Phone Fanny TOURE, Rhonda Primary Care Physician Encounter [facility] Date(s): 08/13/23 - 09/12/23 [facility] [address] [place] [address]- Allergies, Adverse Reactions, Alerts Substance Reaction Severity [...] Refills, Maintenance, 05/18/23 13:33:00 EDT, [facility], 25, INHALE 1 PUFF 4 TIMES A DAY NEEDED FOR COUGH, 170, cm, 05/05/23 12:54:00 EDT, Height, 50, kg, 11/15/21 11:2... Start Date: 05/18/23 Status: Ordered amLODIPine 5 mg oral tablet 1 tablet, By Mouth, Daily, # 90 tablet, 1 Refills, Maintenance, 06/09/23 9:12:00 EST, [facility], 170, cm, 06/03/23 14:00:00 EST, Height, 51, kg, 06/03/23 14:00:00 EST, Dry Weight Start Date: 06/09/23 Status: Ordered atorvastatin 20 mg oral tablet 1 tablet, By Mouth, Daily, # 90 tablet, 1 Refills, Maintenance, 07/29/23 9:02:00 EST, [facility], 170, cm, 06/23/23 10:13:00 EST, Height, 51, kg, 06/03/23 14:00:00 EST, Dry Weight Start Date: 07/29/23 Status: Ordered celecoxib 200 mg oral capsule 1 capsule = 200 mg, By Mouth, 2 times a day, # 14 capsule, 0 Refills, Maintenance, 06/04/23 13:40:00 EST, Capsule, [facility], Partial fill upon patient [...] EST, Route to Pharmacy Electronically, [facility], Partial fill uponpatient request if the [...] Unknown, 5 Refills, Maintenance, 12/11/22 19:25:00 EDT, [facility], 90, INSTILL 2 SPRAYS INTO EACH NOSTRIL 3 TIMES A DAY NEEDED FOR CONGESTION, 1... Start Date: 12/11/22 Status: Ordered lisinopril 10 mg oral tablet 1, tablet, By Mouth, Daily, # 90 tablet, Refills 1, Maintenance, 09/07/23 9:20:00 EST, Route to Pharmacy Electronically, [facility]19, 170, cm, 07/29/23 14:04:00 EST, Height, 51, kg, 06/03/23 14:00:00 EST, Dry Weight Start Date: 09/07/23 Status: Ordered metoprolol 25 mg oral tablet 12.5 mg, 0.5, tablet, By Mouth, Every 12 hours, # 30 tablet, Refills 0, Tot. Refills 0, Maintenance, 06/04/23 13:43:00 EST, Route to Pharmacy Electronically, [facility], Partial fill upon patient request if the prescription is for a sche... Start Date: 06/04/23 Stop Date: 07/04/23 Status: Ordered nicotine 14 mg/24 hr transdermal film, extended release 1 patch, Topically, Daily, # 28 patch, 0 Refills, Maintenance, 07/27/23 14:23:00 EST, [facility] 23076, 28, APPLY 1 PATCH TOPICALLY DAILY, 170, cm, 06/23/23 10:13:00 EST, Height, 51, kg, 06/03/23 14:00:00 EST, Dry Weight Start Date: 07/27/23 Status: Ordered oxyCODONE 5 mg oral tablet 10 mg, 2, tablet, By Mouth, Every 6 hours, PRN, fill on 08/18/23, # 224 tablet, Refills 0, Tot. Refills 0, Maintenance, as needed for pain, 08/18/23 9:46:00 EST, Route to Pharmacy Electronically, [facility]/pharmacy #1972, Partial fill upon patient request if... Start Date: 08/18/23 Stop Date: 09/15/23 Status: Ordered OxyCONTIN 20 mg oral tablet, extended release 20 mg, 1, tablet, By Mouth, Every 12 hours, business segment manager chacked fill 08/18/23, # 56 tablet, Refills [...] Confirmed Active Tobacco use disorder Confirmed Active 34093 r lung wedge resection Social History Social [...] Associate Professional Member Role: PCP Address: Address: [address] [place] [address], [address] Floor [place], [place] [address] Name: Yue Delgado RN Position: S RN Member Role: Primary Care Nurse Name: Debo Gagnon Position: S RN Member Role: Primary Care Nurse Name: Lisa Awad RN Position: S RN Member Role: Primary Care Nurse Name: Elly Rodriges RN Position: [facility] RN Member Role: Primary Care Nurse Name: Nilda Pop RN Position: S RN Member Role: Primary Care Nurse Care Team Related Persons Name: DIOP CHARLINE Address: [place] [address] Name: ELDER ANDERSON Address: home [address] [place] [address] Name: MAEGAN ANDERSON Address: home [address] [place] [address]
--- OUTSIDE RECORDS SUMMARY | 2024-03-09 07:32 | XMS_ITS | Continuity of Care Document ---
Author Organization [facility] ter Address [address] [place] [address]- Care Team Providers Care Software Quality Test Engineer Name Role Phone Chaim Templeton MD Primary Care Physician [phone] Encounter [facility] Date(s): 08/31/19 - 08/31/[address] [address]- [facility] Attending Physician: Chaim Templeton MD Allergies, Adverse Reactions, Alerts Substance Reaction Severity Status morphine 1 combative CONFUSED OUT OF IT Active 1hallucintations, confusion Immunizations Given and Recorded Vaccine Date Status Refusal Reason influ virus vac, H1N1, inactive(oldterm) 08/14/09 Given pneumococcal 23-valent vaccine 08/14/09 Given Medications CeleBREX 200 mg oral capsule 1 capsule [...] 07/14/19 10:49:00 EST, Route to Pharmacy Electronically, [facility]/pharmacy #1234, 170, cm, 07/04/19 9:01:00 EST, Height, 59.4, kg, 04/07/19 15:15:00 EDT, Dry Weight Start Date: 07/14/19 Status: Ordered ProAir HFA 90 mcg/inh inhalation aerosol with adapter See Instructions, TAKE 2 PUFFS BY MOUTH EVERY 4 HOURS NEEDED FOR WHEEZE, # 18 Gm, Refills 2, Tot. Refills 2, Soft Stop, 04/19/19 15:30:17 EDT, Instructions Replace Required Details, Route to Pharmacy Electronically, [id number]... Start Date: 04/19/19 Status: Ordered Suboxone 8 mg-2 mg sublingual film Sublingual, Daily, 0 Refills, Maintenance, 04/07/19 15:18:17 EDT Start Date: 04/07/19 Status: Ordered tiZANidine 4 mg oral tablet 4 mg, 1, tablet, By Mouth, Every 8 hours, PRN, # 30 tablet, Refills 0, Tot. Refills 0, Maintenance,as needed for pain, 08/31/19 14:04:00 EST, [facility], 170, cm, 08/31/19 13:40:00 EST, Height, [...]
--- OUTSIDE RECORDS SUMMARY | 2024-03-09 07:32 | XMS_ITS | Continuity of Care Document ---
Author Organization [facility] Address [address] [place] [address] Brise[address], [address] [place] [address]- Care Team Providers Care Personal Financial Planner Name Role Phone Fanny TOURE, Rhonda Primary Care Physician [facility]counter [facility] Date(s): 12/29/23 - 01/05/24 [facility] [address] [place] [address] Drive [address] [place] [address]- Attending Physician: Tha aG DO Allergies, Adverse Reactions, Alerts Substance Reaction [...] Pedro rded influenza virus vaccine, inactivated 03/12/10 Pedor rded influenza virus vaccine, inactivated 07/04/08 Pedro [...] Refills, Maintenance, 06/09/23 9:12:00 EST, [facility], 170, cm, 06/03/23 14:00:00 EST, Height, 51, kg, 06/03/23 14:00:00 EST, Dry Weight Start Date: 06/09/23 Status: Ordered atorvastatin 20 mg oral tablet 1 tablet, By Mouth, Daily, # 90 tablet, 1 Refills, Maintenance, 07/29/23 9:02:00 EST, [facility], 170, cm, 06/23/23 10:13:00 EST, Height, 51, kg, 06/03/23 14:00:00 EST, Dry Weight Start Date: 07/29/23 Status: Ordered celecoxib 200 mg oral capsule 1 capsule = 200 mg, By Mouth, 2 times a day, # 14 capsule, 0 Refills, Maintenance, 06/04/23 13:40:00 EST, Capsule, [facility], Partial fill upon patient [...] 06/04/23 13:40:00 EST, Route to Pharmacy Electronically, [facility], Partial fill uponpatient request [...] Unknown, 5 Refills, Maintenance, 12/11/22 19:25:00 EDT, [facility], 90, INSTILL 2 SPRAYS INTO EACH NOSTRIL 3 TIMES A DAY NEEDED FOR CONGESTION, 1... Start Date: 12/11/22 Status: Ordered lisinopril 10 mg oral tablet 1, tablet, By Mouth, Daily, # 90 tablet, Refills 1, Maintenance, 09/07/23 9:20:00 EST, Route to Pharmacy Electronically, [facility] 439[facility], 170, cm, 07/29/23 14:04:00 EST, Height, 51, kg, 06/03/23 14:00:00 EST, Dry Weight Start Date: 09/07/23 Status: Ordered metoprolol 25 mg oral tablet 12.5 mg, 0.5, tablet, By Mouth, Every 12 hours, # 30 tablet, Refills 0, Tot. Refills 0, Maintenance, 06/04/23 13:43:00 EST, Route to Pharmacy Electronically, [facility], Partial fill upon patient request if the prescription is for a sche... Start Date: 06/04/23 Stop Date: 07/04/23 Status: Ordered nicotine 14 mg/24 hr transdermal film, extended release 1 patch, Topically, Daily, # 28 patch, 0 Refills, Maintenance, 07/27/23 14:23:00 EST, [facility] 53335, 28, APPLY 1 PATCH TOPICALLY DAILY, 170, cm, 06/23/23 10:13:00 EST, Height, 51, kg, 06/03/23 14:00:00 EST, Dry Weight Start Date: 07/27/23 Status: Ordered oxyCODONE 10 mg oral tablet 1 tablet = 10 mg, By Mouth, Every 6 hours, PRN as needed for pain, warehouse checker assessed fill 01/05/24, # 112tablet, 0 Refills, Maintenance, 12/26/23 6:35:00 EDT, Tablet, [facility]/pharmacy #1972, Partial fill uponpatient request if the prescription is for a schedu... Start Date: 12/26/23 Stop Date: 01/23/24 Status: Ordered OxyCONTIN 20 mg oral tablet, extended release 20 mg, 1, tablet, By Mouth, Every 12 hours, warehouse checker chacked fill 01/05/24, # 56 tablet, Refills 0, Tot. Refills 0, Maintenance, 12/26/23 6:35:00 EDT, Route to Pharmacy Electronically, [facility]/pharmacy #1972, Partial fill upon patient request [...] Confirmed Active Tobacco use disorder Confirmed Active 38364 r lung wedge resection Social History Social History Type Response Smoking Status Former smoker, quit more than 30 days ago; Total pack years: 45; entered on: 09/17/23 Sex Patient Care team information Care Team Personnel Name: Aurelia Yang RN Position: S RN Member Role: Primary Care Nurse Name: Rhonda Escobedo NP Position: [facility] PC[facility] Associate Professional Member Role: PCP Address: Address: [address] [place] [address], 3rd Floor [place], [place] [address] Name: Yue Delgado RN Position: S RN Member Role: Primary Care Nurse Name: Debo Gagnon RN Position: S RN Member Role: Primary Care Nurse Name: Lisa Awad RN Position: S RN Member Role: Primary Care Nurse Name: Elly Rodriges RN Position: [facility] RN Member Role: Primary Care Nurse Name: Nilda Pop RN Position: S RN Member Role: Primary Care Nurse Care Team Related Persons Name: CHARLINE DIOP Address: [place] [address] Name: ELDER ANDERSON Address: home [address] [place] [address] Name: MAEGAN ANDERSON Address: home [address] [place] [address]
--- OUTSIDE RECORDS SUMMARY | 2024-03-09 07:32 | XMS_ITS | Continuity of Care Document ---
Author Organization [facility] Address [address] [place] [address]- Care Team Providers Care Service Delivery Manager Name Role Phone Tonja TOURE, Jeannette Olivera Primary Care Physicia n Encounter [facility] Date(s): 03/05/21 - 04/04/21 [facility] [address] [place] [address]- Allergies, Adverse Reactions, Alerts Substance Reaction Severity [...] 03/13/21 9:18:00 EDT, Route to Pharmacy Electronically, [facility]/pharmacy #1234, Partial fill upon patient request if the prescription is for a schedule II opioid drug.... Start Date: 03/13/21 Status: Ordered omeprazole 20 mg oral delayed release tablet 1 tablet = 20 mg, By Mouth, Daily, # 90 tablet, 1 Refills, Maintenance, 08/23/20 13:22:00 EST, CR Tablet, [facility]/pharmacy #1234, Partial fill [...]
--- OUTSIDE RECORDS SUMMARY | 2024-03-09 07:33 | XMS_ITS | Continuity of Care Document ---
Author Organization [facility] Address [address] [place] [address]- Care Team Providers Care Senior Staff Consultant Name Role Phone Chaim Templeton MD Primary Care Physician Encounter [facility] Date(s): 09/05/19 - 09/05/[address] [address]- [facility] Attending Physician: Chaim Templeton MD [...] 07/14/19 10:49:00 EST, Route to Pharmacy Electronically, [facility]/pharmacy #1234, 170, cm, 07/04/19 9:01:00 EST, Height, 59.4, kg, 04/07/19 15:15:00 EDT, Dry Weight Start Date: 07/14/19 Status: Ordered ProAir HFA 90 mcg/inh inhalation aerosol with adapter See Instructions, TAKE 2 PUFFS BY MOUTH EVERY 4 HOURS NEEDED FOR WHEEZE, # 18 Gm, Refills 2, Tot. Refills 2, Soft Stop, 04/19/19 15:30:17 EDT, Instructions Replace Required Details, Route to Pharmacy Electronically, [id number]... Start Date: 04/19/19 Status: Ordered Suboxone 8 mg-2 mg sublingual film Sublingual, Daily, 0 Refills, Maintenance, 04/07/19 15:18:17 EDT Start Date: 04/07/19 Status: Ordered tiZANidine 4 mg oral tablet 4 mg, 1, tablet, By Mouth, Every 8 hours, PRN, # 30 tablet, Refills 0, Tot. Refills 0, Maintenance,as needed for pain, 08/31/19 14:04:00 EST, [facility], 170, cm, 08/31/19 13:40:00 EST, Height, [...]
--- OUTSIDE RECORDS SUMMARY | 2024-03-09 07:33 | XMS_ITS | Continuity of Care Document ---
Author Organization [facility] Adult Address [address] [place] [address]- Care Team Providers Care Perioperative Assistant Name Role Phone Fanny TOURE, Rhonda Primary Care Physician [phone] Encounter [facility] Date(s): 09/16/22 - 10/16/22 [facility] [address] [place] [address]- Allergies, Adverse Reactions, Alerts Substance Reaction Severity [...] 8.5 each, 5 Refills, Maintenance,06/04/22 13:05:00 EST, [facility] 465[facility], 30, TAKE 2 PUFFS BY MOUTH EVERY 4 HOURS NEEDED FOR WHEEZING, 170, cm, 04/10/22 14:30:00 EDT, Height, 50, kg,... Start Date: 06/04/22 Status: Ordered amLODIPine 5 mg oral tablet 1 tablet, By Mouth, Daily, # 90 tablet, 1 Refills, Maintenance, 06/23/22 9:11:00 EST, [facility] 14070, 170, cm, 04/10/22 14:30:00 EDT, Height, 50, [...] tablet, 1 Refills, Maintenance, 08/05/22 7:46:00 EST, [facility] 88743, 170, cm, 08/05/22 7:32:00 EST, Height, 50, kg, 11/15/21 11:23:00 EDT, Dry Weight Start Date: 08/05/22 Status: Ordered atorvastatin 20 mg oral tablet 1 tablet = 20 mg, By Mouth, Daily, # 30 tablet, 5 Refills, Maintenance, 11/17/21 19:20:00 EDT, Tablet, [facility]/pharmacy #1234, Partial fill upon patient request if the prescription is for a schedule II opioid drug., 170, cm, 11/15/21 11:23:00 EDT, Height,... Start Date: 11/17/21 Status: Ordered atorvastatin 20 mg oral tablet 1 tablet = 20 mg, By Mouth, Daily, for 90 days, # 90 tablet, 1 Refills, Physician Stop 12/15/22 11:17:00 EDT, 06/18/22 11:17:00 EST, [facility]/pharmacy #1234, 170, cm, 04/10/22 14:30:00 [...] 2 Refills, Maintenance, 09/24/21 11:18:00 EST, Cream, [facility]/pharmacy #1234, Partial fill upon patient request if the prescription is for a schedule II opioid drug., 1 application Topically 3 times a day,... Start Date: 09/24/21 Status: Ordered hydrocortisone topical 25 mg suppository 1 supp = 25 mg, Rectally, 2 times a day, # 28 supp, 0 Refills, Maintenance, 10/02/21 13:05:00 EDT, Suppository, [facility]/pharmacy #1234, Partial fill upon patient request if the prescription is for a schedule II opioid drug., 170, cm, 10/02/21 10:36:00 EDT... Start Date: 10/02/21 Stop Date: 10/16/21 Status: Ordered ipratropium nasal 21 mcg/inh spray See Instructions, INSTILL 2 SPRAYS INTO EACH NOSTRIL 3 TIMES A DAY NEEDED FOR CONGESTION, # 90 Unknown, 1 Refills, Maintenance, 07/23/22 14:20:00 EST, [facility] STORE 54449, 90, INSTILL 2 SPRAYS INTO EACH NOSTRIL 3 TIMES A DAY NEEDED FOR CONGESTION, 1... Start Date: 07/23/22 Status: Ordered lisinopril 10 mg oral tablet 1, tablet, By Mouth, Daily, # 90 tablet, Refills 1, Maintenance, 08/25/22 11:40:00 EST, Route to Pharmacy Electronically, [facility] 21434, 170, cm, 08/05/22 8:05:00 EST, Height, 50, kg, 11/15/21 11:23:00 EDT, Dry Weight Start Date: 08/25/22 Status: Ordered Nicotrol Inhaler 10 mg inhalation device See Instructions, USE 6 CARTRIDGES PER DAY, # 168 Unknown, 0 Refills, Maintenance, 02/03/22 9:21:00EDT, [facility]/pharmacy #1234, 28, USE 6 CARTRIDGES PER DAY, 170, cm, 12/31/21 8:21:00 EDT, Height, 50, kg, 11/15/21 11:23:00 EDT, Dry Weight Start Date: 02/03/22 Status: Ordered oxyCODONE 10 mg oral tablet 1 tablet = 10 mg, By Mouth, Every 6 hours, PRN as needed for severe pain, # 112 tablet, 0 Refills, Maintenance, 10/14/22 7:55:00 EDT, Tablet, [facility]/pharmacy #1234, Partial fill upon patient request if the prescription is for a schedule II opioid drug. M... Start Date: 10/14/22 Stop Date: 11/11/22 Status: Ordered OxyCONTIN 10 mg oral tablet, extended release 10 mg, 1, tablet, By Mouth, Every 12 hours, # 56 tablet, Refills 0, Tot. Refills 0, Maintenance, 10/14/22 7:53:00 EDT, Route to Pharmacy Electronically, [facility]/pharmacy #1234, in addition to his [...] Team Personnel Name: Rhonda Escobedo NP Position: [facility] PCO Associate Professional Member Role: PCP Address: Address: [address], [address] [place] [address]- Name: Lisa Awad RN Position: S RN Member Role: Primary Care Nurse Name: Elly Rodriges RN Position: [facility] RN Member Role: Primary Care Nurse Care Team Related Persons Name: JONI DIOPNIFER Address: [place] [address] Name: ELDER ANDERSON Address: home [address] [place] [address] Name: MAEGAN ANDERSON Address: home [address] [place] [address]
--- OUTSIDE RECORDS SUMMARY | 2024-03-09 07:33 | XMS_ITS | Continuity of Care Document ---
Author Organization [facility] Address [address] [place] [address]- Care Team Providers Care Proposal Review Analyst Name Role Phone Fanny TOURE, Rhonda Primary Care Physician [facility] Date[facility]s): 12/12/23 - 01/11/24 [facility] [address] [place] [address]- Allergies, Adverse Reactions, Alerts Substance Reaction Severity [...] Refills, Maintenance, 06/09/23 9:12:00 EST, [facility], 170, cm, 06/03/23 14:00:00 EST, Height, 51, kg, 06/03/23 14:00:00 EST, Dry Weight Start Date: 06/09/23 Status: Ordered atorvastatin 20 mg oral tablet 1 tablet, By Mouth, Daily, # 90 tablet, 1 Refills, Maintenance, 07/29/23 9:02:00 EST, [facility], 170, cm, 06/23/23 10:13:00 EST, Height, 51, kg, 06/03/23 14:00:00 EST, Dry Weight Start Date: 07/29/23 Status: Ordered celecoxib 200 mg oral capsule 1 capsule = 200 mg, By Mouth, 2 times a day, # 14 capsule, 0 Refills, Maintenance, 06/04/23 13:40:00 EST, Capsule, [facility], Partial fill upon patient [...] 06/04/23 13:40:00 EST, Route to Pharmacy Electronically, [facility], Partial fill uponpatient request [...] Unknown, 5 Refills, Maintenance, 12/11/22 19:25:00 EDT, [facility]8216, 90, INSTILL 2 SPRAYS INTO EACH NOSTRIL 3 TIMES A DAY NEEDED FOR CONGESTION, 1... Start Date: 12/11/22 Status: Ordered lisinopril 10 mg oral tablet 1, tablet, By Mouth, Daily, # 90 tablet, Refills 1, Maintenance, 09/07/23 9:20:00 EST, Route to Pharmacy Electronically, [facility] 18[facility], 170, cm, 07/29/23 14:04:00 EST, Height, 51, kg, 06/03/23 14:00:00 EST, Dry Weight Start Date: 09/07/23 Status: Ordered metoprolol 25 mg oral tablet 12.5 mg, 0.5, tablet, By Mouth, Every 12 hours, # 30 tablet, Refills 0, Tot. Refills 0, Maintenance, 06/04/23 13:43:00 EST, Route to Pharmacy Electronically, [facility], Partial fill upon patient request if the prescription is for a sche... Start Date: 06/04/23 Stop Date: 07/04/23 Status: Ordered nicotine 14 mg/24 hr transdermal film, extended release 1 patch, Topically, Daily, # 28 patch, 0 Refills, Maintenance, 07/27/23 14:23:00 EST, [facility] 67957, 28, APPLY 1 PATCH TOPICALLY DAILY, 170, cm, 06/23/23 10:13:00 EST, Height, 51, kg, 06/03/23 14:00:00 EST, Dry Weight Start Date: 07/27/23 Status: Ordered oxyCODONE 10 mg oral tablet 1 tablet = 10 mg, By Mouth, Every 6 hours, PRN as needed for pain, javascript application developer assessed fill 01/05/24, # 112tablet, 0 Refills, Maintenance, 12/26/23 6:35:00 EDT, Tablet, [facility]/pharmacy #1972, Partial fill uponpatient request if the prescription is for a schedu... Start Date: 12/26/23 Stop Date: 01/23/24 Status: Ordered OxyCONTIN 20 mg oral tablet, extended release 20 mg, 1, tablet, By Mouth, Every 12 hours, javascript application developer chacked fill 01/05/24, # 56 tablet, Refills 0, Tot. Refills 0, Maintenance, 12/26/23 6:35:00 EDT, Route to Pharmacy Electronically, [facility]/pharmacy #1972, Partial fill upon patient request if [...] Confirmed Active Tobacco use disorder Confirmed Active 70110 r lung wedge resection Social History Social [...] Associate Professional Member Role: PCP Address: Address: [address] [place] [address], [address]rd [address] [place], [place] [address] Name: Yue Delgado RN Position: [facility] [...] Persons Name: CHARLINE DIOP Address: [place] [address] Name: ELDER ANDERSON Address: home [address] [place] [address] Name: MAEGAN ANDERSON Address: home [address] [place] [address]
--- OUTSIDE RECORDS SUMMARY | 2024-03-09 07:33 | XMS_ITS | Continuity of Care Document ---
Author Organization [facility] Adult Address [address] [place] [address]- Care Team Providers Care Manager Urology Name Role Phone Fanny TOURE, Rhonda Primary Care Physician [facility] Date(s): 05/06/23 - 06/05/23 [facility] [address] [place] [address]- Allergies, Adverse Reactions, Alerts Substance Reaction Severity [...] 06/04/23 13:39:00 EST, Route to Pharmacy Electronically, [facility], Partial fill upon patient request if the pr... Start Date: 06/04/23 Stop Date: 06/11/23 Status: Ordered Albuterol (Eqv-ProAir HFA) 90 mcg/inh inhalation aerosol 1 puffs, Inhalation, 4 times a day, PRN NEEDED FOR COUGH, # 8.5 each, 5 Refills, Maintenance, 05/18/23 13:33:00 EDT, [facility] 56010, 25, INHALE 1 PUFF 4 TIMES A [...] 3 Refills, Maintenance, 02/08/23 9:24:00 EDT, Capsule, [facility]/pharmacy #1972, Partial fill upon patient request, [...] 06/04/23 13:40:00 EST, Route to Pharmacy Electronically, [facility], Partial fill uponpatient request if the [...] Unknown, 5 Refills, Maintenance, 12/11/22 19:25:00 EDT, [facility] 57504, 90, INSTILL 2 SPRAYS INTO EACH NOSTRIL [...] 13:40:00 EST, 06/04/23 13:40:00 EST, REC Powder, [facility], Partial fill [...] 1, tablet, By Mouth, Every 12 hours, dope pourer chacked fill 05/26/2023, # 56 tablet, Refills 0, Tot. Refills 0, Maintenance, 05/24/23 8:17:00 EST, Route to Pharmacy Electronically, [facility]/pharmacy #1972, Partial fill upon patient request [...] Team Personnel Name: Aurelia Yang RN Position: [facility] RN Member Role: Primary Care Nurse Name: Rhonda Escobedo NP Position: [facility] PCO Associate Professional Member Role: PCP Address: Address: [address] [place] [address], [address] [place] [address]- Name: Yue Delgado RN Position: [facility] RN Member Role: Primary Care Nurse Name: Debo Gagnon Position: S RN Member Role: Primary Care Nurse Name: Lisa Awad RN Position: [facility] RN Member Role: Primary Care Nurse Name: Elly Rodriges RN Position: [facility] SN RN Member Role: Primary Care Nurse Name: Nilda Pop RN Position: [facility] RN Member Role: Primary Care Nurse Care Team Related Persons Name: DIOP CHARLINE Address: [place] [address] Name: ELDER ANDERSON Address: home [address] [place] [address] Name: MAEGAN ANDERSON Address: home [address] [place] [address]
--- OUTSIDE RECORDS SUMMARY | 2024-03-09 07:33 | XMS_ITS | Continuity of Care Document ---
Author Organization [facility] Adult Address [address] [place] [address]- Care Team Providers Care Retail Branch Manager Name Role Phone Tonja TOURE, Jeannette Olivera Primary Care Physicia n En[place] [facility] Date(s): 10/29/20 - 11/05/20 [facility] [address] [place] [address]- Encounter Diagnosis Hypertension(Discharge Diagnosis) - 10/29/20 Anxiety(Discharge Diagnosis) - 10/29/20 Chronic back pain(Discharge Diagnosis) - 10/29/20 Chronic neck pain(Discharge Diagnosis) - 10/29/20 Tobacco use disorder(Discharge Diagnosis) - 10/29/20 Multiple lung nodules(Discharge Diagnosis) - 10/29/20 Bronchitis(Discharge Diagnosis) - 10/29/20 Polyarthralgia(Discharge Diagnosis) - 10/29/20 Low serum cortisol level(Discharge Diagnosis) - 10/29/20 Opioid use disorder, severe, in sustained remission(Discharge Diagnosis) - 10/29/20 Attending Physician: Not on Staff, Attending MD Allergies, Adverse Reactions, Alerts Substance Reaction Severity Status morphine 1 combative CONFUSED OUT OF IT Active 1hallucintations, confusion Immunizations Given and Recorded Vaccine Date Status Refusal Reason influ virus vac, H1N1, inactive(oldterm) 08/14/09 Given pneumococcal 23-valent vaccine 08/14/09 Given Medications Acetaminophen 0 Refills, Maintenance, 10/29/20 8:18:00 EDT, Partial fill upon patient request if the prescriptionis for a schedule II opioid drug. Start Date: 10/29/20 Status: Ordered Back Brace See Instructions, # [...] 07/06/20 8:47:00 EST, Route to Pharmacy Electronically, [facility]/pharmacy #1234, 170, cm, 07/05/20 11:23:00 EST, Height, 57.9, kg, 07/05/20 11:23:00 EST, Dry Weight Start Date: 07/06/20 Status: Ordered Meloxicam Daily, 0 Refills, Maintenance, 10/29/20 8:20:00 EDT, Partial fill upon patient request if the prescription is for a schedule II opioid drug. Start Date: 10/29/20 Status: Ordered omeprazole 20 mg oral delayed release tablet 1 tablet = 20 mg, By Mouth, Daily, # 90 tablet, 1 Refills, Maintenance, 08/23/20 13:22:00 EST, CR Tablet, [facility]/pharmacy #1234, Partial fill upon patient request if the prescription is for a schedule II opioid drug., 170, cm, 08/21/20 6:19:00 EST, Heigh... Start Date: 08/23/20 Status: Ordered ProAir HFA 90 mcg/inh inhalation aerosol 2 puffs, Inhalation, Every 4 hours, PRN NEEDED FOR WHEEZE, # 8.5 Unknown, 5 Refills, Maintenance, 10/15/20 8:28:00 EDT, [facility]/pharmacy #1234, 17, 2 puffs Inhalation Every 4 [...] Status Clinical Service Informant Hypertension Discharge Diagnosis 10/29/20 Anxiety Discharge Diagnosis 10/29/20 Chronic back pain Discharge Diagnosis 10/29/20 Chronic neck pain Discharge Diagnosis 10/29/20 Tobacco use disorder Discharge Diagnosis 10/29/20 Multiple lung nodules Discharge Diagnosis 10/29/20 Bronchitis Discharge Diagnosis 10/29/20 Polyarthralgia Discharge Diagnosis 10/29/20 Low serum cortisol level Discharge Diagnosis 10/29/20 Opioid use disorder, severe, in sustained remission Discharge Diagnosis 10/29/20 Social History Social History Type Response Smoking Status Current every day karina moore; Type: Cigarettes; Tobacco use times per day: 12 cigerettes a day; Number of years: 37; entered on: 04/16/15 Sex
--- OUTSIDE RECORDS SUMMARY | 2024-03-09 07:33 | XMS_ITS | Continuity of Care Document ---
Author Organization [facility] Adult Address [address] [place] [address]- Care Team Providers Care Roll Coverer Name Role Phone Tonja TOURE, Jeannette Olivera Primary Care Physicia n [facility] Date[facility]s): 08/18/21 - 09/17/21 [facility] [address] [place] [address]- Allergies, Adverse Reactions, Alerts Substance Reaction Severity [...]
--- OUTSIDE RECORDS SUMMARY | 2024-03-09 07:33 | XMS_ITS | Continuity of Care Document ---
Author Organization [facility] Address [address] [place] [address] Briseyda wade, [address] [place] [address]- Care Team Providers Care Web Marketing Assistant Name Role Phone Fanny TOURE, Rhonda Primary Care Phys[facility]23 - 12/31/23 [facility] [address] [place] [address] Drive [address] [place], [place] [address] Allergies, Adverse Reactions, Alerts Substance Reaction Severity [...] Refills, Maintenance, 06/09/23 9:12:00 EST, [facility], 170, cm, 06/03/23 14:00:00 EST, Height, 51, kg, 06/03/23 14:00:00 EST, Dry Weight Start Date: 06/09/23 Status: Ordered atorvastatin 20 mg oral tablet 1 tablet, By Mouth, Daily, # 90 tablet, 1 Refills, Maintenance, 07/29/23 9:02:00 EST, [facility], 170, cm, 06/23/23 10:13:00 EST, Height, 51, kg, 06/03/23 14:00:00 EST, Dry Weight Start Date: 07/29/23 Status: Ordered celecoxib 200 mg oral capsule 1 capsule = 200 mg, By Mouth, 2 times a day, # 14 capsule, 0 Refills, Maintenance, 06/04/23 13:40:00 EST, Capsule, [facility], Partial fill upon patient [...] 13:40:00 EST, Route to Pharmacy Electronically, [facility], Partial fill uponpatient request if [...] Unknown, 5 Refills, Maintenance, 12/11/22 19:25:00 EDT, [facility], 90, INSTILL 2 SPRAYS INTO EACH NOSTRIL 3 TIMES A DAY NEEDED FOR CONGESTION, 1... Start Date: 12/11/22 Status: Ordered lisinopril 10 mg oral tablet 1, tablet, By Mouth, Daily, # 90 tablet, Refills 1, Maintenance, 09/07/23 9:20:00 EST, Route to Pharmacy Electronically, [facility], 170, cm, 07/29/23 14:04:00 EST, Height, 51, kg, 06/03/23 14:00:00 EST, Dry Weight Start Date: 09/07/23 Status: Ordered metoprolol 25 mg oral tablet 12.5 mg, 0.5, tablet, By Mouth, Every 12 hours, # 30 tablet, Refills 0, Tot. Refills 0, Maintenance, 06/04/23 13:43:00 EST, Route to Pharmacy Electronically, [facility], Partial fill upon patient request if the prescription is for a sche... Start Date: 06/04/23 Stop Date: 07/04/23 Status: Ordered nicotine 14 mg/24 hr transdermal film, extended release 1 patch, Topically, Daily, # 28 patch, 0 Refills, Maintenance, 07/27/23 14:23:00 EST, [facility] 41363, 28, APPLY 1 PATCH TOPICALLY DAILY, 170, cm, 06/23/23 10:13:00 EST, Height, 51, kg, 06/03/23 14:00:00 EST, Dry Weight Start Date: 07/27/23 Status: Ordered oxyCODONE 10 mg oral tablet 1 tablet = 10 mg, By Mouth, Every 6 hours, PRN as needed for pain, sr. social media & mobile manager assessed fill 01/05/24, # 112tablet, 0 Refills, Maintenance, 12/26/23 6:35:00 EDT, Tablet, [facility]/pharmacy #1972, Partial fill uponpatient request if the prescription is for a schedu... Start Date: 12/26/23 Stop Date: 01/23/24 Status: Ordered OxyCONTIN 20 mg oral tablet, extended release 20 mg, 1, tablet, By Mouth, Every 12 hours, sr. social media & mobile manager chacked fill 01/05/24, # 56 tablet, Refills [...] Confirmed Active Tobacco use disorder Confirmed Active 05518 r lung wedge resection Social History Social History Type Response Smoking Status Former smoker, quit more than 30 days ago; Total pack years: 45; entered on: 09/17/23 Sex Patient Care team information Care Team Personnel Name: uArelia Yang RN Position: [facility] RN Member Role: Primary Care Nurse Name: Rhonda Escobedo NP Position: [facility] PCO Associate Professional Member Role: PCP Address: Address: [address] [place] [address], 3rd [address] [place], [place] [address] Name: Yue Delgado RN Position: S RN [...] Persons Name: CHARLINE DIOP Address: [place] [address] Name: ELDER ANDERSON Address: home [address] [place] [address] Name: MAEGAN ANDERSON Address: home [address] [place] [address]
--- OUTSIDE RECORDS SUMMARY | 2024-03-09 07:33 | XMS_ITS | Continuity of Care Document ---
Author Organization [facility] Adult Address [address] [place] [address]- Care Team Providers Care Promotion Officer Name Role Phone Tonja TOURE, Jeannette Olivera Primary Care Physicia n [facility]): 06[facility]07[facility]21 - 07/07/21 [facility] [address] [place] [address]- Allergies, Adverse Reactions, Alerts Substance Reaction Severity [...] 1 Refills, Maintenance, 06/27/21 14:24:00 EST, Cream, [facility]/pharmacy #1234, Partial fill upon patient request if the prescription is for a schedule II opioid drug., 1 application Rectally 2 times a day, 1... Start Date: 06/27/21 Status: Ordered Anusol-HC 2.5% cream with applicator 1 application, Rectally, 2 times a day, # 30 Gm, 1 Refills, Maintenance, 06/27/21 14:24:00 EST, Cream, [facility]/pharmacy #1234, [...] 5 Refills, Maintenance, 07/03/21 10:04:00 EST, Tablet, [facility]/pharmacy #1234, [...]
--- OUTSIDE RECORDS SUMMARY | 2024-03-09 07:33 | XMS_ITS | Continuity of Care Document ---
Author Organization [facility] Adult Address [address] [place] [address]- Care Team Providers Care Sewer Cleaner Name Role Phone Tonja TOURE, Jeannette Olivera Primary Care Physicia n [facility]): 06/12/21 - 07/12/21 [facility] Adult [address] [place] [address]- Allergies, Adverse Reactions, Alerts Substance Reaction Severity [...] 1 Refills, Maintenance, 06/27/21 14:24:00 EST, Cream, [facility]/pharmacy #1234, Partial fill upon patient request if the prescription is for a schedule II opioid drug., 1 application Rectally 2 times a day, 1... Start Date: 06/27/21 Status: Ordered Anusol-HC 2.5% cream with applicator 1 application, Rectally, 2 times a day, # 30 Gm, 1 Refills, Maintenance, 06/27/21 14:24:00 EST, Cream, [facility]/pharmacy #1234, Partial fill upon patient request if the prescription is for a schedule II opioid drug., 1 application Rectally 2 times a day, 1... Start Date: 06/27/21 Status: Ordered atorvastatin 20 mg oral tablet 1 tablet = 20 mg, By Mouth, Daily, # 30 tablet, 5 Refills, Maintenance, 06/19/21 8:09:00 EST, Tablet, [facility]/pharmacy #1234, Partial fill upon patient request [...] 5 Refills, Maintenance, 07/03/21 10:04:00 EST, Tablet, [facility]/pharmacy #1234, Partial fill upon patient request [...]
--- OUTSIDE RECORDS SUMMARY | 2024-03-09 07:33 | XMS_ITS | Continuity of Care Document ---
Author Organization [facility] Adult Address [address] [place] [address]- Care Team Providers Care Pet Food Deboner Name Role Phone Fanny TOURE, Rhonda Primary Care Physician [facility]): 12/12/22 - 02/25/23 [facility] Adult [address] [place] [address]- Attending Physician: Not on Staff, Attending MD [...] 1 Refills, Maintenance, 09/24/21 13:25:00 EST, Cream, [facility]/pharmacy #1234, Partial fill upon patient request if the prescription is for a schedule II opioid drug., 1 application Rectally 2 times a day, 1... Start Date: 09/24/21 Status: Ordered Anusol-HC 2.5% cream with applicator 1 application, Rectally, 2 times a day, # 30 Gm, 1 Refills, Maintenance, 06/27/21 14:24:00 EST, Cream, [facility]/pharmacy #1234, Partial fill upon patient request if the prescription is for a schedule II opioid drug., 1 application Rectally 2 times a day, 1... Start Date: 06/27/21 Status: Ordered atorvastatin 20 mg oral tablet 1 tablet = 20 mg, By Mouth, Daily, for 90 days, # 90 tablet, 1 Refills, Physician Stop 06/13/23 11:17:00 EST, 12/15/22 11:17:00 EDT, [facility]/pharmacy #1972, 170, cm, 08/05/22 8:05:00 EST, Height, 50, kg,11/15/21 11:23:00 EDT, Dry Weight Start Date: 12/15/22 Stop Date: 06/13/23 Status: Ordered atorvastatin 20 mg oral tablet See Instructions, TAKE 1 TABLET BY MOUTH EVERY DAY, # 90 tablet, 1 Refills, Maintenance, 08/05/22 7:46:00 EST, [facility], 170, cm, 08/05/22 7:32:00 EST, Height, 50, kg, 11/15/21 11:23:00 EDT, Dry Weight Start Date: 08/05/22 Status: Ordered atorvastatin 20 mg oral tablet 1 tablet = 20 mg, By Mouth, Daily, # 30 tablet, 5 Refills, Maintenance, 11/17/21 19:20:00 EDT, Tablet, [facility]/pharmacy #1234, Partial fill upon [...] 2 Refills, Maintenance, 09/24/21 11:18:00 EST, Cream, [facility]/pharmacy #1234, Partial fill upon patient request if the prescription is for a schedule II opioid drug., 1 application Topically 3 times a day,... Start Date: 09/24/21 Status: Ordered hydrocortisone topical 25 mg suppository 1 supp = 25 mg, Rectally, 2 times a day, # 28 supp, 0 Refills, Maintenance, 10/02/21 13:05:00 EDT, Suppository, [facility]/pharmacy #1234, Partial fill upon [...] EDT, [facility] ST[facility] 02854, 90, INSTILL 2 SPRAYS INTO EACH NOSTRIL 3 TIMES A DAY NEEDED FOR CONGESTION, 1... Start Date: 12/11/22 Status: Ordered lisinopril 10 mg oral tablet See Instructions, TAKE 1 TABLET BY MOUTH EVERY DAY, # 90 tablet, Refills 0, Maintenance, 02/06/23 8:55:00 EDT, Instructions Replace Required Details, Route to Pharmacy Electronically, [facility] ST[facility] 60558, 170, cm, 08/05/22 8:05:00 EST, Height, 50, kg, 04/... Start Date: 02/06/23 Status: Ordered lisinopril 10 mg oral tablet 1, tablet, By Mouth, Daily, # 90 tablet, Refills 0, Tot. Refills 0, Maintenance, 02/05/23 15:07:00 EDT, Route to Pharmacy Electronically, [facility]/pharmacy #1972, 170, cm, 08/05/22 8:05:00 EST, Height, 50, kg, 11/15/21 11:23:00 EDT, Dry Weight Start Date: 02/05/23 Status: Ordered Nicotrol Inhaler 10 mg inhalation device See Instructions, USE 6 CARTRIDGES PER DAY, # 168 Unknown, 0 Refills, Maintenance, 02/03/22 9:21:00EDT, [facility]/pharmacy #1234, 28, USE 6 CARTRIDGES PER DAY, 170, cm, 12/31/21 8:21:00 EDT, Height, 50, kg, 11/15/21 11:23:00 EDT, Dry Weight Start Date: 02/03/22 Status: Ordered oxyCODONE 5 mg oral tablet 10 mg, 2, tablet, By Mouth, Every 6 hours, PRN, ROUTER MACHINE OPERATOR checked. Fill on 03/05/23, # 224 tablet, Refills0, Tot. Refills 0, Maintenance, as needed for pain, 02/21/23 8:44:00 EDT, Route to Pharmacy Electronically, [facility]/pharmacy #1972, Partial fill upon patie... Start Date: 02/21/23 Stop Date: 03/21/23 Status: Ordered OxyCONTIN 10 mg oral tablet, extended release 10 mg, 1, tablet, By Mouth, Every 12 hours, ROUTER MACHINE OPERATOR checked. Fill on 03/05/23, # 56 tablet, Refills 0, Tot. Refills 0, Maintenance, 02/21/23 8:44:00 EDT, Route to Pharmacy Electronically, [facility]/pharmacy #1972, in addition to his IR oxycodone, 170, cm, 02/06/... Start Date: 02/21/23 Stop Date: 03/21/23 Status: Ordered Ventolin HFA 108 mcg/inh inhalation aerosol with adapter See Instructions, INHALE 1 PUFF 4 TIMES A DAY NEEDED FOR COUGH, # 18 each, 5 Refills, Maintenance, 12/11/22 19:25:00 EDT, [facility] STORE 62171, 170, cm, 08/05/22 8:05:00 EST, Height, 50, [...] Team Personnel Name: Rhonda Escobedo NP Position: [facility] PCO Associate Professional Member Role: PCP Address: Address: [address] [place] [address], 3rd [place] [address]- Name: Lisa Awad RN Position: [facility] RN Member Role: Primary Care Nurse Name: Elly Rodriges RN Position: [facility] RN Member Role: Primary Care Nurse Care Team Related Persons Name: DIOPCHARLINE PEREZ Address: [place] [address] Name: ELDER ANDERSON Address: home [address] [place] [address] Name: MAEGAN ANDERSON Address: home [address] [place] [address]
--- OUTSIDE RECORDS SUMMARY | 2024-03-09 07:33 | XMS_ITS | Continuity of Care Document ---
Author Organization [facility] Address [address] [place] [address]- Care Team Providers Care Allocations Clerk Name Role Phone Tonja TOURE, Jeannette Olivera Primary Care Physicia n [facility]): 06/16/21 - 07/16/21 [facility] [address] [place] [address]- Allergies, Adverse Reactions, Alerts Substance Reaction Severity [...] 1 Refills, Maintenance, 06/27/21 14:24:00 EST, Cream, [facility]/pharmacy #1234, Partial fill upon patient request if the prescription is for a schedule II opioid drug., 1 application Rectally 2 times a day, 1... Start Date: 06/27/21 Status: Ordered Anusol-HC 2.5% cream with applicator 1 application, Rectally, 2 times a day, # 30 Gm, 1 Refills, Maintenance, 06/27/21 14:24:00 EST, Cream, [facility]/pharmacy #1234, Partial fill upon patient request if the prescription is for a schedule II opioid drug., 1 application Rectally 2 times a day, 1... Start Date: 06/27/21 Status: Ordered atorvastatin 20 mg oral tablet 1 tablet = 20 mg, By Mouth, Daily, # 30 tablet, 5 Refills, Maintenance, 06/19/21 8:09:00 EST, Tablet, [facility]/pharmacy #1234, Partial [...] 5 Refills, Maintenance, 07/03/21 10:04:00 EST, Tablet, [facility]/pharmacy #1234, Partial [...]
--- OUTSIDE RECORDS SUMMARY | 2024-03-09 07:33 | XMS_ITS | Continuity of Care Document ---
Author Organization [facility] Adult Address [address] [place] [address]- Care Team Providers Care Metabolic Specialist Name Role Phone Fanny TOURE, Rhonda Primary Care Physician [facility]): 01/28/24 - 02/27/24 [facility] Adult [address] [place] [address]- Allergies, Adverse Reactions, Alerts Substance Reaction Severity [...] Refills, Maintenance, 01/28/24 14:32:00 EDT, [facility], 170, cm, 01/08/24 10:04:00 EDT, Height, 51, kg, 06/03/23 14:00:00 EST, Dry Weight Start Date: 01/28/24 Status: Ordered atorvastatin 20 mg oral tablet 1 tablet, By Mouth, Daily, # 90 tablet, 1 Refills, Maintenance, 07/29/23 9:02:00 EST, [facility], 170, cm, 06/23/23 10:13:00 EST, Height, 51, kg, 06/03/23 14:00:00 EST, Dry Weight Start Date: 07/29/23 Status: Ordered celecoxib 200 mg oral capsule 1 capsule = 200 mg, By Mouth, 2 times a day, # 14 capsule, 0 Refills, Maintenance, 06/04/23 13:40:00 EST, Capsule, [facility], Partial fill upon patient [...] Unknown, 5 Refills, Maintenance, 12/11/22 19:25:00 EDT, [facility], 90, INSTILL 2 SPRAYS INTO EACH NOSTRIL 3 TIMES A DAY NEEDED FOR CONGESTION, 1... Start Date: 12/11/22 Status: Ordered lisinopril 10 mg oral tablet 1, tablet, By Mouth, Daily, # 90 tablet, Refills 1, Maintenance, 09/07/23 9:20:00 EST, Route to Pharmacy Electronically, [facility] 72873, 170, cm, 07/29/23 14:04:00 EST, Height, 51, kg, 06/03/23 14:00:00 EST, Dry Weight Start Date: 09/07/23 Status: Ordered metoprolol 25 mg oral tablet 12.5 mg, 0.5, tablet, By Mouth, Every 12 hours, # 30 tablet, Refills 0, Tot. Refills 0, Maintenance, 06/04/23 13:43:00 EST, Route to Pharmacy Electronically, [facility], Partial fill upon patient request if the prescription is for a sche... Start Date: 06/04/23 Stop Date: 07/04/23 Status: Ordered nicotine 14 mg/24 hr transdermal film, extended release 1 patch, Topically, Daily, # 28 patch, 0 Refills, Maintenance, 07/27/23 14:23:00 EST, [facility], 28, APPLY 1 PATCH TOPICALLY DAILY, 170, cm, 06/23/23 10:13:00 EST, Height, 51, kg, 06/03/23 14:00:00 EST, Dry Weight Start Date: 07/27/23 Status: Ordered oxyCODONE 10 mg oral tablet 1 tablet = 10 mg, By Mouth, Every 6 hours, PRN as needed for pain, flight security specialist assessed fill 02/02/24, # 112tablet, 0 Refills, Maintenance, 01/26/24 8:16:00 EDT, Tablet, [facility]/pharmacy #1972, Partial fill uponpatient request if the prescription is for a schedu... Start Date: 01/26/24 Stop Date: 02/23/24 Status: Ordered OxyCONTIN 20 mg oral tablet, extended release 20 mg, 1, tablet, By Mouth, Every 12 hours, flight security specialist chacked fill 02/02/24, # 56 tablet, Refills 0, Tot. Refills 0, Maintenance, 01/26/24 8:16:00 EDT, Route to Pharmacy Electronically, [facility]/pharmacy #1972, Partial fill upon patient request if the prescriptio... Start Date: 01/26/24 Stop Date: 02/23/24 Status: Ordered Vaisle See Instructions, # 1 each, Maintenance, DX: [...] Confirmed Active Tobacco use disorder Confirmed Active 09459 r lung wedge resection Social History Social History Type Response Smoking Status Former smoker, quit more than 30 days ago; Total pack years: 45; entered on: 09/17/23 Sex Patient Care team information Care Team Personnel Name: Aurelia Yang RN Position: S RN Member Role: Primary Care Nurse Name: Rhonda Escobedo NP Position: [facility] PCO Associate Professional Member Role: PCP Address: Address: [address] [place] [address], [address] [place] [address]- Name: Yue Delgado RN Position: [facility] RN Member Role: Primary Care Nurse Name: Debo Gagnon RN Position: [facility] RN Member Role: Primary Care Nurse Name: Lisa Awad RN Position: [facility] RN Member Role: Primary Care Nurse Name: Elly Rodriges RN Position: [facility] RN Member Role: Primary Care Nurse Name: Nilda Pop RN Position: S RN Member Role: Primary Care Nurse Care Team Related Persons Name: CHARLINE DIOP Address: [place] [address] Name: ELDER ANDERSON Address: home [address] [place] [address] Name: MAEGAN ANDERSON Address: home [address] [place] [address]
--- OUTSIDE RECORDS SUMMARY | 2024-03-09 07:33 | XMS_ITS | Continuity of Care Document ---
Author Organization [facility] Adult Address [address] [place] [address]- Care Team Providers Care Record Clerk Salesperson Name Role Phone Tonja TOURE, Jeannette Olivera Primary Care Physicia n En[place] [facility] [place] 02/26/21 - 06/09/21 [facility] [address] [place] [address]- [place] Attending Physician: Robin TOURE, Noemy Medina Allergies, Adverse Reactions, Alerts Substance Reaction Severity [...] Refills, Maintenance, 03/01/21 12:03:00 EDT, [facility]/pharmacy #1234, 2 puffs Inhalation [...]
--- OUTSIDE RECORDS SUMMARY | 2024-03-09 07:33 | XMS_ITS | Continuity of Care Document ---
Author Organization [facility] Address [address] [place] [address] [address], [address] [place] [address]- Care Team Providers Care Underground Miner Name Role Phone Fanny TOURE, Rhonda Primary Care Physician [phone] [facility] 06[facility]23[facility]23 - 06/30/23 [facility] [address] [place] [address], [address] [place], [place] [address] Attending Physician: Tha Ga DO Allergies, Adverse Reactions, [...] Refills, Maintenance, 05/18/23 13:33:00 EDT, [facility], 25, INHALE 1 PUFF 4 TIMES A DAY NEEDED FOR COUGH, 170, cm, 05/05/23 12:54:00 EDT, Height, 50, kg, 11/15/21 11:2... Start Date: 05/18/23 Status: Ordered amLODIPine 5 mg oral tablet 1 tablet, By Mouth, Daily, # 90 tablet, 1 Refills, Maintenance, 06/09/23 9:12:00 EST, [facility], 170, cm, 06/03/23 14:00:00 EST, Height, 51, kg, 06/03/23 14:00:00 EST, Dry Weight Start Date: 06/09/23 Status: Ordered celecoxib 200 mg oral capsule 1 capsule = 200 mg, By Mouth, 2 times a day, # 14 capsule, 0 Refills, Maintenance, 06/04/23 13:40:00 EST, Capsule, [facility], Partial fill upon patient request if the prescription is for a schedule II opioid drug., 170, cm, 06/03/23 14:... Start Date: 06/04/23 Stop Date: 06/11/23 Status: Ordered cholecalciferol 50,000 intl units oral capsule 1 capsule = 50,000 International_Units, By Mouth, Every 7 days, # 13 capsule, 3 Refills, Maintenance, 02/08/23 9:24:00 EDT, Capsule, [facility]/pharmacy #1972, Partial fill upon patient request, [...] 06/04/23 13:40:00 EST, Route to Pharmacy Electronically, [facility], Partial fill uponpatient request [...] 5 Refills, Maintenance, 12/11/22 19:25:00 EDT, [facility] ST[facility] 85180, 90, INSTILL 2 SPRAYS INTO EACH NOSTRIL 3 TIMES A DAY NEEDED FOR CONGESTION, 1... Start Date: 12/11/22 Status: Ordered metoprolol 25 mg oral tablet 12.5 mg, 0.5, tablet, By Mouth, Every 12 hours, # 30 tablet, Refills 0, Tot. Refills 0, Maintenance, 06/04/23 13:43:00 EST, Route to Pharmacy Electronically, [facility], Partial fill upon patient [...] 1, tablet, By Mouth, Every 12 hours, dog behaviorist chacked fill 06/23/23, # 56 tablet, Refills [...] Confirmed Active Tobacco use disorder Confirmed Active 59943 r lung wedge resection Vital Signs Most recent to oldest [Reference Range]: 1 Height 170 cm (06/23/23 10:13 AM) Weight 54.6 kg (06/23/23 10:13 AM) Oxygen Saturation [94-100 %] 96 % (06/23/23 10:13 AM) Pulse Rate [55-90 bpm] 57 bpm (06/23/23 10:13 AM) Body Mass Index [18.5-24.99 kg/m2] 18.89 kg/m2 (06/23/23 10:13 AM) Blood Pressure [90-138/55-84 mm Hg] 128/ 68mm Hg (06/23/23 10:13 AM) Respiratory Rate [16-30 br/min] 18 br/mi n (06/23/23 10:13 AM) Temperature [96.8-100.4 DegF] 96.8 DegF (06/23/23 10:13 AM) Mode of Delivery (Oxygen) Room air (06/23/23 10:13 AM) Blood pressure sites Arm, right (06/23/23 10:13 AM) Temperature Route Temporal (06/23/23 10:13 AM) Dry Weight Obtained Via Standing scale (06/23/23 10:13 AM) Social History Social History Type Response Tobacco Use: 4 or less cigar ettes(less than 1/4 pack)/day in last 30 days. Other: 2-3 cig/d x 40 years; was at 0.5 pp/d. Sex Patient Care team information Care Team Personnel Name: Aurelia Yang RN Position: [facility] RN Member Role: Primary Care Nurse Name: Rhonda Escobedo NP Position: [facility] PCO Associate Professional Member Role: PCP Address: Address: [address] [place] [address], 3[address] [place] [address]- Name: Yue Delgado RN Position: S RN Member Role: Primary Care Nurse Name: Debo Gagnon Position: S RN Member Role: Primary Care Nurse Name: Lisa Awad RN Position: S RN Member Role: Primary Care Nurse Name: Elly Rodriges RN Position: [facility] RN Member Role: Primary Care Nurse Name: Nilda Pop RN Position: S RN Member Role: Primary Care Nurse Care Team Related Persons Name: JADON CHARLINE Address: [place] [address] Name: ELDER ANDERSON Address: home [address] [place] [address] Name: MAEGAN ANDERSON Address: home [address] [place] [address]
--- OUTSIDE RECORDS SUMMARY | 2024-03-09 07:33 | XMS_ITS | Continuity of Care Document ---
Author Organization [facility] Address [address] [place] [address]- Care Team Providers Care Contact Center Team Lead Name Role Phone Fanny TOURE, Rhonda Primary Care Physician [phone] [facility]counter [facility]): 12/30/22 - 04/29/23 [facility] [address] [place] [address]- Attending Physician: Rhonda Escobedo NP Allergies, Adverse [...] 1 Refills, Maintenance, 09/24/21 13:25:00 EST, Cream, [facility]/pharmacy #1234, Partial fill upon patient request if the prescription is for a schedule II opioid drug., 1 application Rectally 2 times a day, 1... Start Date: 09/24/21 Status: Ordered Anusol-HC 2.5% cream with applicator 1 application, Rectally, 2 times a day, # 30 Gm, 1 Refills, Maintenance, 06/27/21 14:24:00 EST, Cream, [facility]/pharmacy #1234, Partial fill upon patient request if the prescription is for a schedule II opioid drug., 1 application Rectally 2 times a day, 1... Start Date: 06/27/21 Status: Ordered atorvastatin 20 mg oral tablet 1 tablet = 20 mg, By Mouth, Daily, for 90 days, # 90 tablet, 1 Refills, Physician Stop 06/13/23 11:17:00 EST, 12/15/22 11:17:00 EDT, [facility]/pharmacy #1972, 170, cm, 08/05/22 8:05:00 EST, Height, 50, kg,11/15/21 11:23:00 EDT, Dry Weight Start Date: 12/15/22 Stop Date: 06/13/23 Status: Ordered atorvastatin 20 mg oral tablet See Instructions, TAKE 1 TABLET BY MOUTH EVERY DAY, # 90 tablet, 1 Refills, Maintenance, 08/05/22 7:46:00 EST, [facility], 170, cm, 08/05/22 7:32:00 EST, Height, 50, kg, 11/15/21 11:23:00 EDT, Dry Weight Start Date: 08/05/22 Status: Ordered atorvastatin 20 mg oral tablet 1 tablet = 20 mg, By Mouth, Daily, # 30 tablet, 5 Refills, Maintenance, 11/17/21 19:20:00 EDT, Tablet, [facility]/pharmacy #1234, Partial fill upon [...] 0 Refills, Maintenance, 10/02/21 13:05:00 EDT, Suppository, [facility]/pharmacy #1234, Partial fill upon patient request if the prescription is for a schedule II opioid drug., 170, cm, 10/02/21 10:36:00 EDT... Start Date: 10/02/21 Stop Date: 10/16/21 Status: Ordered ipratropium nasal 21 mcg/inh spray See Instructions, INSTILL 2 SPRAYS INTO EACH NOSTRIL 3 TIMES A DAY NEEDED FOR CONGESTION, # 60 Unknown, 5 Refills, Maintenance, 12/11/22 19:25:00 EDT, [facility], 90, INSTILL 2 SPRAYS INTO EACH NOSTRIL 3 TIMES A DAY NEEDED FOR CONGESTION, 1... Start Date: 12/11/22 Status: Ordered lisinopril 10 mg oral tablet See Instructions, TAKE 1 TABLET BY MOUTH EVERY DAY, # 90 tablet, Refills 0, Maintenance, 02/06/23 8:55:00 EDT, Instructions Replace Required Details, Route to Pharmacy Electronically, [facility] STORE [facility], 170, cm, 08/05/22 8:05:00 EST, Height, 50, kg, 04/... Start Date: 02/06/23 Status: Ordered lisinopril 10 mg oral tablet 1, tablet, By Mouth, Daily, # 90 tablet, Refills 0, Tot. Refills 0, Maintenance, 02/05/23 15:07:00 EDT, Route to Pharmacy Electronically, [facility]/pharmacy #1972, 170, cm, 08/05/22 8:05:00 EST, Height, 50, kg, 11/15/21 11:23:00 EDT, Dry Weight Start Date: 02/05/23 Status: Ordered Nicotrol Inhaler 10 mg inhalation device See Instructions, USE 6 CARTRIDGES PER DAY, # 168 Unknown, 0 Refills, Maintenance, 02/03/22 9:21:00EDT, [facility]/pharmacy #1234, 28, USE 6 CARTRIDGES PER DAY, 170, cm, 12/31/21 8:21:00 EDT, Height, 50, kg, 11/15/21 11:23:00 EDT, Dry Weight Start Date: 02/03/22 Status: Ordered oxyCODONE 5 mg oral tablet 10 mg, 2, tablet, By Mouth, Every 6 hours, PRN, PARIMUTUEL TICKET CHECKER checked. Fill on 04/30/23, # 224 tablet, Refills 0, Tot. Refills 0, Maintenance, as needed for pain, 04/24/23 8:29:00 EDT, Route to Pharmacy Electronically, [facility]/pharmacy #1972, Partial fill upon chandrika... Start Date: 04/24/23 Stop Date: 05/22/23 Status: Ordered OxyCONTIN 10 mg oral tablet, extended release 10 mg, 1, tablet, By Mouth, Every 12 hours, PARIMUTUEL TICKET CHECKER checked. Fill on 04/30/23, # 56 tablet, Refills 0, Tot. Refills 0, Maintenance, 04/24/23 8:29:00 EDT, Route to Pharmacy Electronically, [facility]/pharmacy #1972, in addition to his IR oxycodone, 170, cm, 02/06... Start Date: 04/24/23 Stop Date: 05/22/23 Status: Ordered Ventolin HFA 108 mcg/inh inhalation aerosol with adapter See Instructions, INHALE 1 PUFF 4 TIMES A DAY NEEDED FOR COUGH, # 18 each, 5 Refills, Maintenance, 12/11/22 19:25:00 EDT, [facility] STORE 70[facility], 170, cm, 08/05/22 8:05:00 EST, Height, 50, [...] Team Personnel Name: Rhonda Escobedo NP Position: [facility] PCO Associate Professional Member Role: PCP Address: Address: [address] [place] [address], 3rd [place] [address]- Name: Lisa Awad RN Position: S RN Member Role: Primary Care Nurse Name: Elly Rodriges RN Position: [facility] SN RN Member Role: Primary Care Nurse Care Team Related Persons Name: DIOP CHARLINE Address: [place] [address] Name: ELDER ANDERSON Address: home [address] [place] [address] Name: MAEGAN ANDERSON Address: home [address] [place] [address]
--- OUTSIDE RECORDS SUMMARY | 2024-03-09 07:33 | XMS_ITS | Continuity of Care Document ---
Author Organization [facility] Adult Address [address] [place] [address]- Care Team Providers Care Order Caller Name Role Phone Fanny TOURE, Rhonda Primary Care Physician [phone] [facility]s): 06/12/23 - 06/19/23 [facility] [address] [place] [address]- Attending Physician: Rhonda Escobedo NP Allergies, Adverse [...] Refills, Maintenance, 05/18/23 13:33:00 EDT, [facility], 25, INHALE 1 PUFF 4 TIMES A DAY NEEDED FOR COUGH, 170, cm, 05/05/23 12:54:00 EDT, Height, 50, kg, 11/15/21 11:2... Start Date: 05/18/23 Status: Ordered amLODIPine 5 mg oral tablet 1 tablet, By Mouth, Daily, # 90 tablet, 1 Refills, Maintenance, 06/09/23 9:12:00 EST, [facility], 170, cm, 06/03/23 14:00:00 EST, Height, 51, [...] 3 Refills, Maintenance, 02/08/23 9:24:00 EDT, Capsule, [facility]/pharmacy #1972, Partial fill upon patient request, [...] [facility], Partial fill uponpatient request [...] Unknown, 5 Refills, Maintenance, 12/11/22 19:25:00 EDT, [facility] ST[facility] 19940, 90, INSTILL 2 SPRAYS INTO EACH NOSTRIL [...] 1, tablet, By Mouth, Every 12 hours, nursing faculty chacked fill 05/26/2023, # 56 tablet, Refills [...] use disorder Confirmed Active Underweight Confirmed Active 11430 r lung wedge resection Vital Signs Most recent to oldest [Reference Range]: 1 Height 170 cm (06/10/23 4:25 PM) Weight Obtained Via Patient/family state d (06/10/23 4:25 PM) Social History Social History Type Response Tobacco Use: 4 or less cigar ettes(less than 1/4 pack)/day in last 30 days. Other: 2-3 cig/d x 40 years; was at 0.5 pp/d. Sex Patient Care team information Care Team Personnel Name: Aurelia Yang RN Position: S RN Member Role: Primary Care Nurse Name: Rhonda Escobedo NP Position: [facility] PCO Associate Professional Member Role: PCP Address: Address: [address] [place] [address], 3rd [place] [address]- Name: Yue Delgado RN Position: S RN Member Role: Primary Care Nurse Name: Debo Gagnon Position: S RN Member Role: Primary Care Nurse Name: Lisa Awad RN Position: S RN Member Role: Primary Care Nurse Name: Elly Rodriges RN Position: [facility] SN RN Member Role: Primary Care Nurse Name: Nilda Pop RN Position: S RN Member Role: Primary Care Nurse Care Team Related Persons Name: CHARLINE DIOP Address: [place] [address] Name: ELDER ANDERSON Address: home [address] [place] [address] Name: MAEGAN ANDERSON Address: home [address] [place] [address]
--- OUTSIDE RECORDS SUMMARY | 2024-03-09 07:33 | XMS_ITS | Continuity of Care Document ---
Author Organization [facility] Address [address] [place] [address] [address]ri, [address] [place] [address]- Care Team Providers Care Chest Painting Leader Name Role Phone Fanny TOURE, Rhonda Primary Care Physician [phone] [facility]s): 06/01/23 - 07/01/23 [facility] [address] [place] [address], [address] [place] [address]- Allergies, Adverse Reactions, Alerts Substance Reaction Severity [...] Refills, Maintenance, 05/18/23 13:33:00 EDT, [facility], 25, INHALE 1 PUFF 4 TIMES A DAY NEEDED FOR COUGH, 170, cm, 05/05/23 12:54:00 EDT, Height, 50, kg, 11/15/21 11:2... Start Date: 05/18/23 Status: Ordered amLODIPine 5 mg oral tablet 1 tablet, By Mouth, Daily, # 90 tablet, 1 Refills, Maintenance, 06/09/23 9:12:00 EST, [facility], 170, cm, 06/03/23 14:00:00 EST, Height, 51, kg, 06/03/23 14:00:00 EST, Dry Weight Start Date: 06/09/23 Status: Ordered celecoxib 200 mg oral capsule 1 capsule = 200 mg, By Mouth, 2 times a day, # 14 capsule, 0 Refills, Maintenance, 06/04/23 13:40:00 EST, Capsule, [facility], Partial fill upon patient request if the prescription is for a schedule II opioid drug., 170, cm, 06/03/23 14:... Start Date: 06/04/23 Stop Date: 06/11/23 Status: Ordered cholecalciferol 50,000 intl units oral capsule 1 capsule = 50,000 International_Units, By Mouth, Every 7 days, # 13 capsule, 3 Refills, Maintenance, 02/08/23 9:24:00 EDT, Capsule, [facility]/pharmacy #1972, Partial fill [...] 06/04/23 13:40:00 EST, Route to Pharmacy Electronically, [facility], Partial fill uponpatient request [...] 19:25:00 EDT, [facility] STORE 23601, 90, INSTILL 2 SPRAYS INTO EACH NOSTRIL 3 TIMES A DAY NEEDED FOR CONGESTION, 1... Start Date: 12/11/22 Status: Ordered metoprolol 25 mg oral tablet 12.5 mg, 0.5, tablet, By Mouth, Every 12 hours, # 30 tablet, Refills 0, Tot. 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 Other: 2-3 cig/d x 40 years; was at 0.5 pp/d. Sex Patient Care team information Care Team Personnel Name: Aurelia Yang RN Position: S RN Member Role: Primary Care Nurse Name: Rhonda Escobedo NP Position: [facility] PCO Associate Professional Member Role: PCP Address: Address: [address] [place] [address], [address]rd Floor [place], [place] [address] Name: Yue Delgado RN Position: S RN Member Role: Primary Care Nurse Name: Debo Gagnon Position: S RN Member Role: Primary Care Nurse Name: Lisa Awad RN Position: S RN Member Role: Primary Care Nurse Name: Elly Rodriges RN Position: [facility] RN Member Role: Primary Care Nurse Name: Nilda Pop RN Position: S RN Member Role: Primary Care Nurse Care Team Related Persons Name: CHARLINE DIOP Address: [place] [address] Name: ELDER ANDERSON Address: home [address] [place] [address] Name: MAEGAN ANDERSON Address: home [address] [place] [address]
--- OUTSIDE RECORDS SUMMARY | 2024-03-09 07:33 | XMS_ITS | Continuity of Care Document ---
Author Organization [facility] Address [address] [place] [address]- Care Team Providers Care Manager Of Human Resources Name Role Phone Tonja TOURE, Jeannette Olivera Primary Care Physicia n [facility]s): 02[facility]26/21 - 03/05/21 [facility] [address] [place] [phone]- Encounter Diagnosis Tobacco use disorder(Discharge Diagnosis) - 02/26/21 Chronic neck pain(Discharge Diagnosis) - 02/26/21 Hypertension(Discharge Diagnosis) - 02/26/21 Attending Physician: Robin TOURE, Noemy Medina Referring [...] 02/26/21 12:07:00 EDT, Route to Pharmacy Electronically, [facility]/pharmacy #1234, Partial fill upon patient request if [...] 08/23/20 13:22:00 EST, CR Tablet, [facility]/pharmacy #1234, Partial fill upon patient request if the prescription is for a schedule II opioid drug., 170, cm, 08/21/20 6:19:00 EST, Lia... Start Date: 08/23/20 Status: [...] Effective Dates Health Status Clinical Service Informant Tobacco use disorder Discharge Diagnosis 02/26/21 Chronic neck pain Discharge Diagnosis 02/26/21 Hypertension Discharge Diagnosis 02/26/21 Vital Signs Most recent to oldest [Reference Range]: 1 2 Height 170 cm (02/26/21 12:12 PM) 170 cm (02/26/21 11:36 AM) Weight 56.6 kg (02/26/21 11:36 AM) Oxygen Saturation [94-100 %] 97 % (02/26/21 11:36 AM) Pulse Rate [55-90 bpm] 47 bpm *L* (02/26/21 11:36 AM) Body Mass Index [18.5-24.99] 19.58 (02/26/21 11:36 AM) Blood Pressure [90-138/55-84 mm Hg] 184/ 88mm Hg *H* (02/26/21 12:12 PM) 195/99mm Hg *H* (02/26/21 11:36 AM) Blood pressure sites Arm, left (02/26/21 12:12 PM) Social History Social History Type Response Tobacco Other: Smokes about 12 cigarettes daily. Prior to this, smoking about 1 PPD for 35 years.. Sex
--- OUTSIDE RECORDS SUMMARY | 2024-03-09 07:33 | XMS_ITS | Continuity of Care Document ---
Author Organization [facility] Address [address] [place] [address]- Care Team Providers Care Maintenance Trainer Name Role Phone Tonja TOURE, Jeannette Olivera Primary Care Physicia n [facility] Date[facility]s): 03/07/21 - 04/06/21 [facility] [address] [place] [phone]- Allergies, Adverse Reactions, Alerts Substance Reaction Severity [...]
--- OUTSIDE RECORDS SUMMARY | 2024-03-09 07:33 | XMS_ITS | Continuity of Care Document ---
Author Organization [facility] Adult Address [address] [place] [address]- Care Team Providers Care Log Handling Equipment Operator Name Role Phone Tonja TOURE, Jeannette Olivera Primary Care Physicia n Encounter [facility] Date(s): 10/17/21 - 10/24/21 [facility] [address] [place] [phone]- Encounter Diagnosis Chronic neck pain(Discharge Diagnosis) - 10/17/21 Failed back surgical syndrome(Discharge Diagnosis) - 10/17/21 Opioid use disorder, severe, in sustained remission(Discharge Diagnosis) - 10/17/21 Moderate depressive episode(Discharge Diagnosis) - 10/17/21 Attending Physician: Brigida Cortes MD Allergies, Adverse Reactions, Alerts Substance Reaction [...] Pedro rded influenza virus vaccine, inactivated 04/22/10 Pedor rded influenza virus vaccine, inactivated 03/12/10 Pedro [...] 10/17/21 8:30:00 EDT, [facility] fill upon patient request ifthe prescription is for a schedule II opioid drug.,... Start Date: 10/17/21 Status: Ordered Anusol-HC 2.5% cream with applicator 1 application, Rectally, 2 times a day, # 30 Gm, 1 Refills, Maintenance, 09/24/21 13:25:00 EST, Cream, [facility]/pharmacy #1234, Partial fill upon patient request if the prescription is for a schedule II opioid drug., 1 application Rectally 2 times a day, 1... Start Date: 09/24/21 Status: Ordered Anusol-HC 2.5% cream with applicator 1 application, Rectally, 2 times a day, # 30 Gm, 1 Refills, Maintenance, 06/27/21 14:24:00 EST, Cream, [facility]/pharmacy #1234, Partial [...] Effective Dates Health Status Clinical Service Informant Chronic neck pain Discharge Diagnosis 10/17/21 Failed back surgical syndrome Discharge Diagnosis 10/17/21 Moderate depressive episode Discharge Diagnosis 10/17/21 Opioid use disorder, severe, in sustained remission Discharge Diagnosis 10/17/21 Vital Signs Most recent to oldest [Reference Range]: 1 2 Height 170 cm (10/17/21 8:43 AM) 170 cm (10/17/21 7:53 AM) Weight 56 kg (10/17/21 7:53 AM) Oxygen Saturation [94-100 %] 97 % (10/17/21 7:53 AM) Pulse Rate [55-90 bpm] 58 bpm (10/17/21 7:53 AM) Body Mass Index [18.5-24.99] 19.38 (10/17/21 7:53 AM) Blood Pressure [90-138/55-84 mm Hg] 140/ 79mm Hg *H* (10/17/21 8:43 AM) 155/84mm Hg *H* (10/17/21 7:53 AM) Mode of Delivery (Oxygen) Room air (10/17/21 7:53 AM) Blood pressure sites Arm, left (10/17/21 7:53 AM) Weight Obtained Via Standing scale (10/17/21 7:53 AM) Social History Social History Type Response Tobacco Other: Smokes about 12 cigarettes daily. Prior to this, smoking about 1 PPD for 35 years.. Sex
--- OUTSIDE RECORDS SUMMARY | 2024-03-09 07:33 | XMS_ITS | Continuity of Care Document ---
Author Organization [facility] Address [address] [place] [address]- Care Team Providers Care X Ray Equipment Tester Name Role Phone Tonja TOURE, Jeannette Olivera Primary Care Physicia n [facility]s): 12/24/20 - 01/23/21 [facility] [address] [place] [phone]- Allergies, Adverse Reactions, Alerts Substance Reaction Severity [...] 12/31/20 9:59:00 EDT, Route to Pharmacy Electronically, [facility]/pharmacy #1234, Partialfill upon patient request if [...] Maintenance, 08/23/20 13:22:00 EST, CR Tablet, [facility]/pharmacy #1234, Partial fill upon patient request if the prescription is for a schedule II opioid drug., 170, cm, 08/21/20 6:19:00 EST, Heigh... Start Date: 08/23/20 Status: Ordered ProAir HFA 90 mcg/inh inhalation aerosol 2 puffs, Inhalation, Every 4 hours, PRN NEEDED FOR WHEEZE, # 8.5 Unknown, 5 Refills, Maintenance, 10/15/20 8:28:00 EDT, [facility]/pharmacy #1234, 17, 2 puffs Inhalation Every [...]
--- OUTSIDE RECORDS SUMMARY | 2024-03-09 07:33 | XMS_ITS | Continuity of Care Document ---
Author Organization [facility] Address [address] [place] [address]- Care Team Providers Care Casino Banker Name Role Phone Tonja TOURE, Jeannette Olivera Primary Care Physicia n [facility]s): 03/01/21 - 03/31/21 [facility] [address] [place] [phone]- Allergies, Adverse Reactions, Alerts Substance Reaction Severity [...] 03/13/21 9:18:00 EDT, Route to Pharmacy Electronically, [facility]/pharmacy #1234, Partial fill upon patient request if the prescription is for a schedule II opioid drug.... Start Date: 03/13/21 Status: Ordered omeprazole 20 mg oral delayed release tablet 1 tablet = 20 mg, By Mouth, Daily, # 90 tablet, 1 Refills, Maintenance, 08/23/20 13:22:00 EST, CR Tablet, [facility]/pharmacy #1234, Partial fill upon [...]
--- OUTSIDE RECORDS SUMMARY | 2024-03-09 07:33 | XMS_ITS | Continuity of Care Document ---
Author Organization [facility] Adult Address [address] [place] [address]- Care Team Providers Care Stretcher Leveler Operator Name Role Phone Fanny TOURE, Rhonda Primary Care Physician [phone] [facility](s): 03/05/23 - 04/04/23 [facility] [address] [place] [address]- Allergies, Adverse Reactions, Alerts Substance Reaction Severity [...] Refills, Maintenance, 12/04/22 8:21:00 EDT, [facility]/pharmacy #1972, 170, cm, 08/05/22 8:05:00 EST, Height, 50, kg, 11/15/21 11:23:00 EDT, Dry Weight Start Date: 12/04/22 Status: Ordered Anusol-HC 2.5% cream with applicator 1 application, Rectally, 2 times a day, # 30 Gm, 1 Refills, Maintenance, 09/24/21 13:25:00 EST, Cream, [facility]/pharmacy #1234, Partial fill upon patient request if the prescription is for a schedule II opioid drug., 1 application Rectally 2 times a day, 1... Start Date: 09/24/21 Status: Ordered Anusol-HC 2.5% cream with applicator 1 application, Rectally, 2 times a day, # 30 Gm, 1 Refills, Maintenance, 06/27/21 14:24:00 EST, Cream, [facility]/pharmacy #1234, Partial fill upon patient request if the prescription is for a schedule II opioid drug., 1 application Rectally 2 times a day, 1... Start Date: 06/27/21 Status: Ordered atorvastatin 20 mg oral tablet 1 tablet = 20 mg, By Mouth, Daily, for 90 days, # 90 tablet, 1 Refills, Physician Stop 06/13/23 11:17:00 EST, 12/15/22 11:17:00 EDT, [facility]/pharmacy #1972, 170, cm, 08/05/22 8:05:00 EST, Height, 50, kg,11/15/21 11:23:00 EDT, Dry Weight Start Date: 12/15/22 Stop Date: 06/13/23 Status: Ordered atorvastatin 20 mg oral tablet See Instructions, TAKE 1 TABLET BY MOUTH EVERY DAY, # 90 tablet, 1 Refills, Maintenance, 08/05/22 7:46:00 EST, [facility], 170, cm, 08/05/22 7:32:00 EST, Height, 50, [...] Maintenance, 10/02/21 13:05:00 EDT, Suppository, [facility]/pharmacy #1234, Partial fill upon patient request if the prescription is for a schedule II opioid drug., 170, cm, 10/02/21 10:36:00 EDT... Start Date: 10/02/21 Stop Date: 10/16/21 Status: Ordered ipratropium nasal 21 mcg/inh spray See Instructions, INSTILL 2 SPRAYS INTO EACH NOSTRIL 3 TIMES A DAY NEEDED FOR CONGESTION, # 60 Unknown, 5 Refills, Maintenance, 12/11/22 19:25:00 EDT, [facility], 90, INSTILL 2 SPRAYS INTO EACH NOSTRIL 3 TIMES A DAY NEEDED FOR CONGESTION, 1... Start Date: 12/11/22 Status: Ordered lisinopril 10 mg oral tablet See Instructions, TAKE 1 TABLET BY MOUTH EVERY DAY, # 90 tablet, Refills 0, Maintenance, 02/06/23 8:55:00 EDT, Instructions Replace Required Details, Route to Pharmacy Electronically, [facility] ST[facility] 625[facility], 170, cm, 08/05/22 8:05:00 EST, Height, 50, kg, ... Start Date: 02/06/23 Status: Ordered lisinopril 10 mg oral tablet 1, tablet, By Mouth, Daily, # 90 tablet, Refills 0, Tot. Refills 0, Maintenance, 02/05/23 15:07:00 EDT, Route to Pharmacy Electronically, [facility]/pharmacy #1972, 170, cm, 08/05/22 8:05:00 EST, Height, 50, kg, 11/15/21 11:23:00 EDT, Dry Weight Start Date: 02/05/23 Status: Ordered Nicotrol Inhaler 10 mg inhalation device See Instructions, USE 6 CARTRIDGES PER DAY, # 168 Unknown, 0 Refills, Maintenance, 02/03/22 9:21:00EDT, [facility]/pharmacy #1234, 28, USE 6 CARTRIDGES PER DAY, 170, cm, 12/31/21 8:21:00 EDT, Height, 50, kg, 11/15/21 11:23:00 EDT, Dry Weight Start Date: 02/03/22 Status: Ordered oxyCODONE 5 mg oral tablet 10 mg, 2, tablet, By Mouth, Every 6 hours, PRN, TRANSITIONAL CARE LIAISON checked. Fill on 04/02/23, # 224 tablet, Refills0, Tot. Refills 0, Maintenance, as needed for pain, 03/30/23 20:28:00 EDT, Route to Pharmacy Electronically, [facility]/pharmacy #1972, Partial fill upon chandrika... Start Date: 03/30/23 Stop Date: 04/27/23 Status: Ordered OxyCONTIN 10 mg oral tablet, extended release 10 mg, 1, tablet, By Mouth, Every 12 hours, TRANSITIONAL CARE LIAISON checked. Fill on 04/02/23, # 56 tablet, Refills 0, Tot. Refills 0, Maintenance, 03/30/23 20:28:00 EDT, Route to Pharmacy Electronically, [facility]/pharmacy #1972, in addition to his IR oxycodone, 170, cm, 02/06... Start Date: 03/30/23 Stop Date: 04/27/23 Status: Ordered Ventolin HFA 108 mcg/inh inhalation aerosol with adapter See Instructions, INHALE 1 PUFF 4 TIMES A DAY NEEDED FOR COUGH, # 18 each, 5 Refills, Maintenance, 12/11/22 19:25:00 EDT, [facility] ST[facility]3549, 170, cm, 08/05/22 8:05:00 EST, Height, 50, [...] Team Personnel Name: Rhonda Escobedo NP Position: [facility] PCO Associate Professional Member Role: PCP Address: Address: [address] [place] [address], 3rd Floor [facility] [place] [address]- Name: Lisa Awad RN Position: S RN Member Role: Primary Care Nurse Name: Elly Rodriges RN Position: [facility] SN RN Member Role: Primary Care Nurse Care Team Related Persons Name: DIOP CHARLINE Address: [place] [address] Name: ELDER ANDERSON Address: home [address] [place] [address] Name: MAEGAN ANDERSON Address: home [address] [place] [address]
--- OUTSIDE RECORDS SUMMARY | 2024-03-09 07:33 | XMS_ITS | Continuity of Care Document ---
Author Organization [facility] ter Address [address] [place] [address]- Care Team Providers Care Outside Sales Representative Name Role Phone Tonja TOURE, Jeannette Olivera Primary Care Physicia n Encounter [facility] Date(s): 05/24/21 - 05/25/[address] [address]- Discharge Disposition: A-D/C Home Attending Physician: Garrison Pepper MD Admitting Physician: Garrison Pepper MD Referring Physician: Garrison Pepper MD Allergies, Adverse Reactions, Alerts Substance Reaction [...] 3 Refills, Maintenance, 03/07/21 15:26:00 EDT, Tablet, [facility]/pharmacy #1234, Partial fill [...] Supply Start Date: 05/03/21 Status: Ordered gabapentin 300 mg oral capsule 600 mg, Capsule, By Mouth, 05/25/21 9:00:00 EDT Start Date: 05/25/21 Stop Date: 05/25/21 Status: Completed gabapentin 600 mg oral tablet 1 tablet [...] 84 capsule, 0 Refills, Maintenance, 04/15/21 10:30:00EDT, [facility]/pharmacy #1234, Partial fill upon patient request if the prescription is for a schedule IIopioid drug., use 6 cartridges per day, 170, cm, 09... Start Date: 04/15/21 Status: Ordered oxyCODONE 5 mg oral tablet 5 mg, Tablet, By Mouth, Every 6 hours, PRN for Pain , Severe, Routine, 05/24/21 15:30:00 EDT Start Date: 05/24/21 Stop Date: 05/25/21 Status: Discontinued ProAir HFA 90 mcg/inh inhalation aerosol 2 [...] sustained remission(Confirmed) Active Tobacco use disorder(Confirmed) Active Procedures Procedure Date Related Diagnosis Body Site Status Per-oral endoscopic myotomy (POEM) 05/24/21 Completed Vital Signs Most recent to oldest [Reference Range]: 1 2 3 Height 170.18 cm (05/25/21 3:40 AM) 170.18 cm (05/25/21 1:49 AM) 170.18 cm (05/24/21 11:48 PM) Weight 59.09 kg (05/24/21 7:29 AM) 59.09 kg (05/20/21 12:08 PM) Oxygen Saturation [94-100 %] 96 % (05/25/21 6:00 AM) 95 % (05/25/21 3:40 AM) 95 % (05/24/21 11:48 PM) Pulse Rate [55-90 bpm] 74 bpm (05/25/21 6:00 AM) 72 bpm (05/25/21 3:40 AM) 81 bpm (05/24/21 11:48 PM) Body Mass Index [18.5-24.99] 20.4 (05/24/21 7:29 AM) 20.4 (05/20/21 12:08 PM) Blood Pressure [90-138/55-84 mm Hg] 159/81mm Hg *H* (05/25/21 3:40 AM) 147/77mm Hg *H* (05/24/21 11:48 PM) Systolic Blood Pressure [90-138 mm Hg] 146 mm Hg *H* (05/25/21 6:00 AM) Diastolic Blood Pressure [55-84 mm Hg] 72 mm Hg (05/24/21 6:46 PM) Respiratory Rate [16-30 br/min] 18 br/min (05/25/21 8:31 AM) 18 br/min (05/25/21 7:31 AM) 18 br/min (05/25/21 7:31 AM) Temperature [96.8-100.4 DegF] 99.5 DegF (05/25/21 6:00 AM) 99.5 DegF (05/25/21 3:40 AM) 99.6 DegF (05/25/21 1:49 AM) Liters per Minute 6 L/min (05/24/21 10:30 AM) 6 L/min (05/24/21 10:15 AM) Mode of Delivery (Oxygen) Room air (05/25/21 6:00 AM) Room air (05/25/21 3:40 AM) Room air (05/24/21 11:48 PM) Blood pressure sites Arm, right (05/25/21 6:00 AM) Arm, right (05/25/21 3:40 AM) Arm, right (05/24/21 11:48 PM) Temperature Route Oral (05/25/21 6:00 AM) Oral (05/25/21 3:40 AM) Oral (05/25/21 1:49 AM) Social History Social History Type Response Tobacco Other: Smokes about 12 cigarettes daily. Prior to this, smoking about 1 PPD for 35 years.. Sex
--- OUTSIDE RECORDS SUMMARY | 2024-03-09 07:33 | XMS_ITS | Continuity of Care Document ---
Author Organization [facility] Address [address] [place] [address] sheri, [address] [place] [address]- Care Team Providers Care Project Buyer Name Role Phone Fanny TOURE, Rhonda Primary Care Physician [facility]counter [facility] Date(s): 04/16/23 - 05/16/23 [facility] [address] [place] [address], [address] [place], [place] [address] Allergies, Adverse Reactions, Alerts Substance [...] tablet, 1 Refills, Maintenance, 12/04/22 8:21:00 EDT, [facility]/pharmacy #1972, 170, cm, 08/05/22 [...] tablet, 1 Refills, Maintenance, 05/01/23 7:04:00 EDT, [facility] STORE [id number], 170, cm, 02/06/23 9:02:00 EDT, Height, 50, [...] Maintenance, 02/08/23 9:24:00 EDT, Capsule, [facility]/pharmacy #1972, Partial fill upon [...] Refills, Maintenance, 09/24/21 11:18:00 EST, Cream, [facility]/pharmacy #1234, Partial fill upon patient request if the prescription is for a schedule II opioid drug., 1 application Topically 3 times a day,... Start Date: 09/24/21 Status: Ordered hydrocortisone topical 25 mg suppository 1 supp = 25 mg, Rectally, 2 times a day, # 28 supp, 0 Refills, Maintenance, 10/02/21 13:05:00 EDT, Suppository, [facility]/pharmacy #1234, [...] Refills, Maintenance, 12/11/22 19:25:00 EDT, [facility] STORE 79030, 90, INSTILL 2 SPRAYS INTO EACH NOSTRIL 3 TIMES A DAY NEEDED FOR CONGESTION, 1... Start Date: 12/11/22 Status: Ordered lisinopril 10 mg oral tablet 1, tablet, By Mouth, Daily, # 90 tablet, Refills 1, Maintenance, 05/01/23 7:04:00 EDT, Route to Pharmacy Electronically, [facility] STORE [id number], 170, cm, 02/06/23 9:02:00 EDT, Height, 50, kg, 11/15/21 11:23:00 EDT, Dry Weight Start Date: 05/01/23 Status: Ordered Nicotrol Inhaler 10 mg inhalation device See Instructions, USE 6 CARTRIDGES PER DAY, # 168 Unknown, 0 Refills, Maintenance, 02/03/22 9:21:00EDT, [facility]/pharmacy #1234, 28, USE 6 CARTRIDGES PER DAY, 170, cm, 12/31/21 8:21:00 EDT, Height, 50, kg, 11/15/21 11:23:00 EDT, Dry Weight Start Date: 02/03/22 Status: Ordered oxyCODONE 5 mg oral tablet 10 mg, 2, tablet, By Mouth, Every 6 hours, PRN, SLIDE MACHINE TENDER checked. Fill on 04/30/23, # 224 tablet, Refills 0, Tot. Refills 0, Maintenance, as needed for pain, 04/24/23 8:29:00 EDT, Route to Pharmacy Electronically, [facility]/pharmacy #1972, Partial fill upon chandrika... Start Date: 04/24/23 Stop Date: 05/22/23 Status: Ordered OxyCONTIN 10 mg oral tablet, extended release 10 mg, 1, tablet, By Mouth, Every 12 hours, SLIDE MACHINE TENDER checked. Fill on 04/30/23, # 56 tablet, Refills 0, Tot. Refills 0, Maintenance, 04/24/23 8:29:00 EDT, Route to Pharmacy Electronically, [facility]/pharmacy #1972, in addition to his IR oxycodone, 170, cm, 02/06... Start Date: 04/24/23 Stop Date: 05/22/23 Status: Ordered Ventolin HFA 108 mcg/inh inhalation aerosol with adapter See Instructions, INHALE 1 PUFF 4 TIMES A DAY NEEDED FOR COUGH, # 18 each, 5 Refills, Maintenance, 12/11/22 19:25:00 EDT, [facility], 170, cm, 08/05/22 8:05:00 EST, Height, 50, [...] Professional Member Role: PCP Address: Address: [address] [place] [address], [address] [place], [place] [address] Name: Lisa Awad RN Position: [facility] RN Member Role: Primary Care Nurse Name: Elly Rodriges RN Position: [facility] RN Member Role: Primary Care Nurse Care Team Related Persons Name: DIOPREVACHARLINE Address: [place] [address] Name: ELDER ANDERSON Address: home [address] [facility] [address] [place] [address] Name: MAEGAN ANDERSON Address: home [address] [place] [address]
--- OUTSIDE RECORDS SUMMARY | 2024-03-09 07:33 | XMS_ITS | Continuity of Care Document ---
Author Organization [facility] Address [address] [place] [address]- Care Team Providers Care Office Services Representative Name Role Phone Fanny TOURE, Rhonda Primary Care Physician [phone] Encounter [facility] Date(s): 11/15/21 - 12/15/21 [facility] [address] [place] [address]- Allergies, Adverse Reactions, Alerts Substance Reaction Severity [...] # 8.5 each, 5 Refills, [facility], 17, INHALE 2 PUFFS EVERY 4 HOURS NEEDED FOR WHEEZING, 170, cm, 11/15/21 11:23:00 EDT, Height, 50, kg, 11/15/21 11:23:00 EDT, Dry Weight Start Date: 11/17/21 Status: Ordered amLODIPine 5 mg oral tablet 1 tablet, By Mouth, Daily, # 90 tablet, 0 Refills, [facility] STORE 79073, 170, cm, 11/15/21 11:23:00 EDT,Height, 50, kg, [...] tablet, Refills 1, Route to Pharmacy Electronically, [facility] STORE 34298, 170, cm, 12/05/21 10:11:00 EDT, Height, 50, kg, 11/15/21 11:23:00 EDT, Dry Weight Start Date: 12/13/21 Status: Ordered Nicotrol Inhaler 10 mg inhalation device See Instructions, use 6 cartridges per day, # 84 capsule, 0 Refills, Maintenance, 04/15/21 10:30:00EDT, [facility]/pharmacy #1234, Partial fill upon patient request if the prescription is for a schedule IIopioid drug., use 6 cartridges per day, 170, cm, 09... Start Date: 04/15/21 Status: Ordered oxyCODONE 10 mg oral tablet 1 tablet = 10 mg, By Mouth, Every 6 hours, PRN as needed for severe pain, # 120 tablet, 0 Refills, Maintenance, 11/18/21 8:27:00 EDT, Tablet, [facility]/pharmacy #1234, Partial fill upon patient request if the prescription is for a schedule II opioid drug. M... Start Date: 11/18/21 Stop Date: 12/18/21 Status: Ordered OxyCONTIN 10 mg oral tablet, extended release 10 mg, 1, tablet, By Mouth, Every 12 hours, # 56 tablet, Refills 0, Tot. Refills 0, Maintenance, 12/13/21 10:46:00 EDT, [facility] in addition to his IR oxycodone, [...]
--- OUTSIDE RECORDS SUMMARY | 2024-03-09 07:33 | XMS_ITS | Continuity of Care Document ---
Author Organization [facility] Address [address] [place] [address]- Care Team Providers Care Labview Programmer Name Role Phone Tonja TOURE, Jeannette Olivera Primary Care Physicia n Encounter [facility] Date(s): 08/30/21 - 09/06/21 [facility] [address] [place] [id number] [place] Encounter Diagnosis Achalasia(Discharge Diagnosis) - 08/30/21 Chronic pain(Discharge Diagnosis) - 08/30/21 Moderate recurrent major depression(Discharge Diagnosis) - 08/30/21 Hemorrhoids(Discharge Diagnosis) - 08/30/21 Attending Physician: Not on Staff, Attending MD [...] 1 Refills, Maintenance, 06/27/21 14:24:00 EST, Cream, [facility]/pharmacy #1234, Partial fill upon [...] 5 Refills, Maintenance, 06/19/21 8:09:00 EST, Tablet, [facility]/pharmacy #1234, Partial fill upon [...] 09/13/21 9:48:00 EST, 08/30/21 9:48:00 EST, Cream, [facility]/pharmacy #1234, Partial fill upon [...] Effective Dates Health Status Clinical Service Informant Achalasia Discharge Diagnosis 08/30/21 Chronic pain Discharge Diagnosis 08/30/21 Moderate recurrent major depression Discharge Diagnosis 08/30/21 Hemorrhoids Discharge Diagnosis 08/30/21 Vital Signs Most recent to oldest [Reference Range]: 1 2 3 Height 170 cm (08/30/21 9:49 AM) 170 cm (08/30/21 9:11 AM) 170 cm (08/30/21 8:58 AM) Weight 58 kg (08/30/21 8:58 AM) Oxygen Saturation [94-100 %] 99 % (08/30/21 8:58 AM) Pulse Rate [55-90 bpm] 44 bpm *L* (08/30/21 8:58 AM) Body Mass Index [18.5-24.99] 20.07 (08/30/21 8:58 AM) Blood Pressure [90-138/55-84 mm Hg] 160/79mm Hg *H* (08/30/21 9:49 AM) 186/83mm Hg *H* (08/30/21 9:11 AM) 186/76mm Hg *H* (08/30/21 8:58 AM) Temperature [96.8-100.4 DegF] 96.9 DegF (08/30/21 8:58 AM) Mode of Delivery (Oxygen) Room air (08/30/21 8:58 AM) Blood pressure sites Arm, left (08/30/21 8:58 AM) Temperature Route Temporal (08/30/21 8:58 AM) Weight Obtained Via Standing scale (08/30/21 8:58 AM) Social History Social History Type Response Tobacco Other: Smokes about 12 cigarettes daily. Prior to this, smoking about 1 PPD for 35 years.. Sex
--- OUTSIDE RECORDS SUMMARY | 2024-03-09 07:34 | XMS_ITS | Continuity of Care Document ---
Author Organization [facility] Address [address] [place] [address]- Care Team Providers Care Liquor Maker Name Role Phone Chaim Templeton MD Primary Care Physician Encounter [facility] R [id number] Date(s): 07/12/19 - 07/22/19 [facility] [address] [place] [address] [facility] Attending Physician: Sam Carter Admitting Physician: AdmSam [...] 07/14/19 10:49:00 EST, Route to Pharmacy Electronically, [facility]/pharmacy #[id number], 170, cm, 07/04/19 9:01:00 EST, Height, 59.4, kg, 04/07/19 15:15:00 EDT, Dry Weight Start Date: 07/14/19 Status: Ordered meloxicam 7.5 mg oral tablet 1 tablet = 7.5 mg, By Mouth, Daily, # 30 tablet, 0 Refills, Maintenance, 07/05/19 14:48:36 EST, Tablet, [facility]/pharmacy #1234, 170, cm, 07/04/19 9:01:50 EST, [...] Replace Required Details, Route to Pharmacy Electronically, [id number]... Start Date: 04/19/19 Status: Ordered Suboxone 8 [...]
--- OUTSIDE RECORDS SUMMARY | 2024-03-09 07:34 | XMS_ITS | Continuity of Care Document ---
Author Organization [facility] Address [address] [place] [address]- Care Team Providers Care Hand Scudder Name Role Phone Fanny TOURE, Rhonda Primary Care Physician [phone] [place] [facility] [place] 04/08[place]22 - 04/15/22 [facility] [address] [place] [address]- Attending Physician: Umu Galindo MD Allergies, Adverse Reactions, Alerts Substance Reaction [...] EVERY DAY, # 90 tablet, 1 Refills, [facility] STORE 99145, 170, cm, 12/17/21 8:41:00 EDT, Height, 50, [...] 2 Refills, Maintenance, 09/24/21 11:18:00 EST, Cream, [facility]/pharmacy #1234, Partial fill upon patient request if the prescription is for a schedule II opioid drug., 1 application Topically 3 times a day,... Start Date: 09/24/21 Status: Ordered hydrocortisone topical 25 mg suppository 1 supp = 25 mg, Rectally, 2 times a day, # 28 supp, 0 Refills, Maintenance, 10/02/21 13:05:00 EDT, Suppository, [facility]/pharmacy #1234, Partial fill upon patient request if the prescription is for a schedule II opioid drug., 170, cm, 10/02/21 10:36:00 EDT... Start Date: 10/02/21 Stop Date: 10/16/21 Status: Ordered ipratropium nasal 21 mcg/inh spray See Instructions, INSTILL 2 SPRAYS INTO EACH NOSTRIL 3 TIMES A DAY NEEDED FOR CONGESTION, # 30 Unknown, 3 Refills, [facility] STORE 82243, 30, INSTILL 2 SPRAYS INTO EACH NOSTRIL 3 TIMES A DAY NEEDED FOR CONGESTION, 170, cm, 12/31/21 8:21:00 EDT, Height... Start Date: 03/03/22 Status: Ordered lisinopril 10 mg oral tablet 1, tablet, By Mouth, Daily, # 90 tablet, Refills 1, Tot. Refills 1, Maintenance, 02/16/22 16:25:00 EDT, Route to Pharmacy Electronically, [facility]/pharmacy #1234, 170, cm, 12/31/21 8:21:00 EDT, Height, 50, kg, 11/15/21 11:23:00 EDT, Dry Weight Start Date: 02/16/22 Status: Ordered Nicotrol Inhaler 10 mg inhalation device See Instructions, USE 6 CARTRIDGES PER DAY, # 168 Unknown, 0 Refills, Maintenance, 02/03/22 9:21:00EDT, [facility]/pharmacy #1234, 28, USE 6 CARTRIDGES PER DAY, 170, cm, 12/31/21 8:21:00 EDT, Height, 50, kg, 11/15/21 11:23:00 EDT, Dry Weight Start Date: 02/03/22 Status: Ordered oxyCODONE 10 mg oral tablet 1 tablet = 10 mg, By Mouth, Every 6 hours, PRN as needed for severe pain, fill on 04/04/22, # 112 tablet, 0 Refills, Maintenance, 04/03/22 18:13:00 EDT, Tablet, [facility]/pharmacy #1234, Partial fill upon patient request if the prescription is for a schedule... Start Date: 04/03/22 Stop Date: 05/01/22 Status: Ordered OxyCONTIN 10 mg oral tablet, extended release 10 mg, 1, tablet, By Mouth, Every 12 hours, fill on 04/04/22, # 56 tablet, Refills 0, Tot. Refills 0, Maintenance, 04/03/22 18:13:00 EDT, Route to Pharmacy Electronically, [facility]/pharmacy #1234, in addition to [...] oldest [Reference Range]: 1 Height 170 cm (04/08/22 8:10 AM) Weight 57.27 kg (04/08/22 8:10 AM) Body Mass Index [18.5-24.99] 19.82 (04/08/22 8:10 AM) Weight Obtained Via Standing scale (04/08/22 8:10 AM) Social History Social History Type Response Tobacco Other: Smokes about 12 cigarettes daily. Prior to this, smoking about 1 PPD for 35 years.. Sex Care Team Personnel Name: Rhonda Escobedo NP Address: [address] [place] [address], [address]
--- OUTSIDE RECORDS SUMMARY | 2024-03-09 07:34 | XMS_ITS | Continuity of Care Document ---
Author Organization [facility] Address [address] [place] [address]- Care Team Providers Care Automatic Packer Operator Name Role Phone Fanny TOURE, Rhonda Primary Care Physician [phone] Encounter [facility] Date(s): 02/26/23 - 03/28/23 [facility] [address] [id number] Allergies, Adverse Reactions, Alerts Substance Reaction [...] tablet, 1 Refills, Maintenance, 12/04/22 8:21:00 EDT, [facility]/pharmacy #1972, 170, cm, 08/05/22 8:05:00 EST, Height, 50, kg, 11/15/21 11:23:00 EDT, Dry Weight Start Date: 12/04/22 Status: Ordered Anusol-HC 2.5% cream with applicator 1 application, Rectally, 2 times a day, # 30 Gm, 1 Refills, Maintenance, 09/24/21 13:25:00 EST, Cream, [facility]/pharmacy #1234, Partial fill upon patient request if the prescription is for a schedule II opioid drug., 1 application Rectally 2 times a day, 1... Start Date: 09/24/21 Status: Ordered Anusol-HC 2.5% cream with applicator 1 application, Rectally, 2 times a day, # 30 Gm, 1 Refills, Maintenance, 06/27/21 14:24:00 EST, Cream, [facility]/pharmacy #1234, Partial fill upon patient request if the prescription is for a schedule II opioid drug., 1 application Rectally 2 times a day, 1... Start Date: 06/27/21 Status: Ordered atorvastatin 20 mg oral tablet 1 tablet = 20 mg, By Mouth, Daily, for 90 days, # 90 tablet, 1 Refills, Physician Stop 06/13/23 11:17:00 EST, 12/15/22 11:17:00 EDT, [facility]/pharmacy #1972, 170, cm, 08/05/22 8:05:00 EST, Height, 50, kg,11/15/21 11:23:00 EDT, Dry Weight Start Date: 12/15/22 Stop Date: 06/13/23 Status: Ordered atorvastatin 20 mg oral tablet See Instructions, TAKE 1 TABLET BY MOUTH EVERY DAY, # 90 tablet, 1 Refills, Maintenance, 08/05/22 7:46:00 EST, [facility], 170, cm, 08/05/22 7:32:00 EST, Height, 50, [...] 0 Refills, Maintenance, 10/02/21 13:05:00 EDT, Suppository, [facility]/pharmacy #1234, Partial fill upon patient request if the prescription is for a schedule II opioid drug., 170, cm, 10/02/21 10:36:00 EDT... Start Date: 10/02/21 Stop Date: 10/16/21 Status: Ordered ipratropium nasal 21 mcg/inh spray See Instructions, INSTILL 2 SPRAYS INTO EACH NOSTRIL 3 TIMES A DAY NEEDED FOR CONGESTION, # 60 Unknown, 5 Refills, Maintenance, 12/11/22 19:25:00 EDT, [facility] STORE 20177, 90, INSTILL 2 SPRAYS INTO EACH NOSTRIL 3 TIMES A DAY NEEDED FOR CONGESTION, 1... Start Date: 12/11/22 Status: Ordered lisinopril 10 mg oral tablet See Instructions, TAKE 1 TABLET BY MOUTH EVERY DAY, # 90 tablet, Refills 0, Maintenance, 02/06/23 8:55:00 EDT, Instructions Replace Required Details, Route to Pharmacy Electronically, [facility] STORE 99847, 170, cm, 08/05/22 8:05:00 EST, Height, 50, kg, 04... Start Date: 02/06/23 Status: Ordered lisinopril 10 mg oral tablet 1, tablet, By Mouth, Daily, # 90 tablet, Refills 0, Tot. Refills 0, Maintenance, 02/05/23 15:07:00 EDT, Route to Pharmacy Electronically, [facility]/pharmacy #1972, 170, cm, 08/05/22 8:05:00 EST, Height, 50, kg, 11/15/21 11:23:00 EDT, Dry Weight Start Date: 02/05/23 Status: Ordered nicotine 14 mg/24 hr transdermal film, extended release 1 patch, Topically, Daily, for 14 days, # 14 patch, 1 Refills, Acute 04/02/23 12:29:00 EDT, 03/05/23 12:29:00 EDT, Patch, [facility]/pharmacy #1972, Partial fill upon patient request if the prescription is for a schedule II opioid drug., 1 patch Topically Da... Start Date: 03/05/23 Stop Date: 04/02/23 Status: Ordered Nicotrol Inhaler 10 mg inhalation device See Instructions, USE 6 CARTRIDGES PER DAY, # 168 Unknown, 0 Refills, Maintenance, 02/03/22 9:21:00EDT, [facility]/pharmacy #1234, 28, USE 6 CARTRIDGES PER DAY, 170, cm, 12/31/21 8:21:00 EDT, Height, 50, kg, 11/15/21 11:23:00 EDT, Dry Weight Start Date: 02/03/22 Status: Ordered oxyCODONE 5 mg oral tablet 10 mg, 2, tablet, By Mouth, Every 6 hours, PRN, SKIRT CLIPPER checked. Fill on 03/05/23, # 224 tablet, Refills0, Tot. Refills 0, Maintenance, as needed for pain, 02/21/23 8:44:00 EDT, Route to Pharmacy Electronically, [facility]/pharmacy #1972, Partial fill upon patie... Start Date: 02/21/23 Stop Date: 03/21/23 Status: Ordered OxyCONTIN 10 mg oral tablet, extended release 10 mg, 1, tablet, By Mouth, Every 12 hours, SKIRT CLIPPER checked. Fill on 03/05/23, # 56 tablet, [...] each, 5 Refills, Maintenance, 12/11/22 19:25:00 EDT, [facility] STORE 00419, 170, cm, 08/05/22 8:05:00 EST, Height, 50, [...] Team Personnel Name: Rhonda Escobedo NP Position: [facility] PCO Associate Professional Member Role: PCP Address: Address: [address] [place] [address], [address] [place] [address]- Name: Lisa Awad RN Position: S RN Member Role: Primary Care Nurse Name: Elly Rodriges RN Position: [facility] RN Member Role: Primary Care Nurse Care Team Related Persons Name: CHARLINE DIOP Address: [place] [address] Name: ELDER ANDERSON Address: home [address] [facility] [address] [place] [address] Name: MAEGAN ANDERSON Address: home [address] [place] [address]
--- OUTSIDE RECORDS SUMMARY | 2024-03-09 07:34 | XMS_ITS | Continuity of Care Document ---
Author Organization [facility] Adult Address [address] [place] [address]- Care Team Providers Care Mixologist Name Role Phone Rhonda Escobedo NP Primary Care Physician [phone] [facility]counter [facility] Date[facility]s): 04/08/22 - 05/08/22 [facility] [address] [place] [id number]- Attending Physician: AdmSam enriquez Admitting Physician: Admtr, [id number] Referring Physician: Admtr, [...] Refills, Maintenance, 09/24/21 13:25:00 EST, Cream, [facility]/pharmacy #1234, Partial fill upon patient request if [...] DAY, # 90 tablet, 1 Refills, [facility], 170, cm, 12/17/21 8:41:00 EDT, Height, 50, [...] 2 Refills, Maintenance, 09/24/21 11:18:00 EST, Cream, [facility]/pharmacy #1234, Partial fill upon patient request if the prescription is for a schedule II opioid drug., 1 application Topically 3 times a day,... Start Date: 09/24/21 Status: Ordered hydrocortisone topical 25 mg suppository 1 supp = 25 mg, Rectally, 2 times a day, # 28 supp, 0 Refills, Maintenance, 10/02/21 13:05:00 EDT, Suppository, [facility]/pharmacy #1234, Partial fill upon patient request if the prescription is for a schedule II opioid drug., 170, cm, 10/02/21 10:36:00 EDT... Start Date: 10/02/21 Stop Date: 10/16/21 Status: Ordered ipratropium nasal 21 mcg/inh spray See Instructions, INSTILL 2 SPRAYS INTO EACH NOSTRIL 3 TIMES A DAY NEEDED FOR CONGESTION, # 30 Unknown, 3 Refills, [facility], 30, INSTILL 2 SPRAYS INTO EACH NOSTRIL 3 TIMES A DAY NEEDED FOR CONGESTION, 170, cm, 12/31/21 8:21:00 EDT, Height... Start Date: 03/03/22 Status: Ordered lisinopril 10 mg oral tablet 1, tablet, By Mouth, Daily, # 90 tablet, Refills 1, Tot. Refills 1, Maintenance, 02/16/22 16:25:00 EDT, [facility], 170, cm, 12/31/21 8:21:00 EDT, Height, 50, kg, 11/15/21 11:23:00 EDT, Dry Weight Start Date: 02/16/22 Status: Ordered Nicotrol Inhaler 10 mg inhalation device See Instructions, USE 6 CARTRIDGES PER DAY, # 168 Unknown, 0 Refills, Maintenance, 02/03/22 9:21:00EDT, [facility]/pharmacy #1234, 28, USE 6 CARTRIDGES PER DAY, 170, cm, 12/31/21 8:21:00 EDT, Height, 50, kg, 11/15/21 11:23:00 EDT, Dry Weight Start Date: 02/03/22 Status: Ordered oxyCODONE 10 mg oral tablet 1 tablet = 10 mg, By Mouth, Every 6 hours, PRN as needed for severe pain, fill on 05/02/22, # 112 tablet, 0 Refills, Maintenance, 04/17/22 8:05:00 EDT, Tablet, [facility]/pharmacy #1234, Partial fill upon patient request if the prescription is for a schedule... Start Date: 04/17/22 Stop Date: 05/15/22 Status: Ordered OxyCONTIN 10 mg oral tablet, extended release 10 mg, 1, tablet, By Mouth, Every 12 hours, fill on 05/02/22, # 56 tablet, Refills 0, Tot. Refills 0, Maintenance, 04/17/22 8:05:00 EDT, Route to Pharmacy Electronically, [facility]/pharmacy #[id number], in addition to his IR oxycodone, 170, [...] Personnel Name: Rhonda Escobedo NP Address: Address: [address] [place] [address], [address] [place], [place] [address]
--- OUTSIDE RECORDS SUMMARY | 2024-03-09 07:34 | XMS_ITS | Continuity of Care Document ---
Author Organization [facility] Adult Address [address] [place] [address]- Care Team Providers Care Still Operator Brandy Name Role Phone Fanny TOURE, Rhonda Primary Care Physician [facility] Date[facility]s): 11/01/21 - 12/01/21 [facility] Adult [address] [place] [address]- Allergies, Adverse Reactions, Alerts Substance Reaction Severity [...] # 8.5 each, 5 Refills, [facility] 26772, 17, INHALE 2 PUFFS EVERY 4 HOURS NEEDED FOR WHEEZING, 170, cm, 11/15/21 11:23:00 EDT, Height, 50, kg, 11/15/21 11:23:00 EDT, Dry Weight Start Date: 11/17/21 Status: Ordered amLODIPine 5 mg oral tablet 1 tablet, By Mouth, Daily, # 90 tablet, 0 Refills, [facility] 0[facility]23, 170, cm, 11/15/21 11:23:00 EDT,Height, 50, kg, 11/15/21 11:23:00 EDT, Dry Weight Start Date: 11/17/21 Status: Ordered Anusol-HC 2.5% cream with applicator 1 application, Rectally, 2 times a day, # 30 Gm, 1 Refills, Maintenance, 09/24/21 13:25:00 EST, Cream, [facility]/pharmacy #1234, Partial fill upon patient request if the prescription is for a schedule II opioid drug., 1 application Rectally 2 times a day, 1... Start Date: 09/24/21 Status: Ordered Anusol-HC 2.5% cream with applicator 1 application, Rectally, 2 times a day, # 30 Gm, 1 Refills, Maintenance, 06/27/21 14:24:00 EST, Cream, [facility]/pharmacy #1234, Partial fill upon patient request if the prescription is for a schedule II opioid drug., 1 application Rectally 2 times a day, 1... Start Date: 06/27/21 Status: Ordered atorvastatin 20 mg oral tablet 1 tablet = 20 mg, By Mouth, Daily, # 30 tablet, 5 Refills, Maintenance, 11/17/21 19:20:00 EDT, Tablet, [facility]/pharmacy #1234, Partial [...] Maintenance, 11/18/21 8:27:00 EDT, Tablet, [facility]/pharmacy #1234, Partial fill upon patient request if the prescription is for a schedule II opioid drug. M... Start Date: 11/18/21 Stop Date: 12/18/21 Status: Ordered OxyCONTIN 10 mg oral tablet, extended release 10 mg, 1, tablet, By Mouth, Every 12 hours, # 14 tablet, Refills 0, Tot. Refills 0, Maintenance, 11/29/21 12:42:00 EDT, [facility], in addition to his IR oxycodone, 170, cm, 11/29/21 11:18:00 EDT, Height, 50,... Start Date: 11/29/21 Stop Date: 12/06/21 Status: Ordered Problem List Condition Effective Dates [...]
--- OUTSIDE RECORDS SUMMARY | 2024-03-09 07:34 | XMS_ITS | Continuity of Care Document ---
Author Organization [facility] Adult Address [address] [place] [address]- Care Team Providers Care Rehab Department Manager Name Role Phone Fanny TOURE, Rhonda Primary Care Physician [facility] Date[facility]s): 10/28/23 - 11/27/23 [facility] Adult [address] [place] [address]- Allergies, Adverse Reactions, Alerts Substance Reaction Severity [...] Refills, Maintenance, 06/09/23 9:12:00 EST, [facility], 170, cm, 06/03/23 14:00:00 EST, Height, 51, kg, 06/03/23 14:00:00 EST, Dry Weight Start Date: 06/09/23 Status: Ordered atorvastatin 20 mg oral tablet 1 tablet, By Mouth, Daily, # 90 tablet, 1 Refills, Maintenance, 07/29/23 9:02:00 EST, [facility], 170, cm, 06/23/23 10:13:00 EST, Height, 51, kg, 06/03/23 14:00:00 EST, Dry Weight Start Date: 07/29/23 Status: Ordered celecoxib 200 mg oral capsule 1 capsule = 200 mg, By Mouth, 2 times a day, # 14 capsule, 0 Refills, Maintenance, 06/04/23 13:40:00 EST, Capsule, [facility], Partial fill upon [...] 06/04/23 13:40:00 EST, Route to Pharmacy Electronically, [facility], Partial fill uponpatient request if [...] Unknown, 5 Refills, Maintenance, 12/11/22 19:25:00 EDT, [facility] 74238, 90, INSTILL 2 SPRAYS INTO EACH NOSTRIL 3 TIMES A DAY NEEDED FOR CONGESTION, 1... Start Date: 12/11/22 Status: Ordered lisinopril 10 mg oral tablet 1, tablet, By Mouth, Daily, # 90 tablet, Refills 1, Maintenance, 09/07/23 9:20:00 EST, Route to Pharmacy Electronically, [facility] 31623, 170, cm, 07/29/23 14:04:00 EST, Height, 51, kg, 06/03/23 14:00:00 EST, Dry Weight Start Date: 09/07/23 Status: Ordered metoprolol 25 mg oral tablet 12.5 mg, 0.5, tablet, By Mouth, Every 12 hours, # 30 tablet, Refills 0, Tot. Refills 0, Maintenance, 06/04/23 13:43:00 EST, Route to Pharmacy Electronically, [facility], Partial fill upon patient request if the prescription is for a sche... Start Date: 06/04/23 Stop Date: 07/04/23 Status: Ordered nicotine 14 mg/24 hr transdermal film, extended release 1 patch, Topically, Daily, # 28 patch, 0 Refills, Maintenance, 07/27/23 14:23:00 EST, [facility] 91676, 28, APPLY 1 PATCH TOPICALLY DAILY, 170, cm, 06/23/23 10:13:00 EST, Height, 51, kg, 06/03/23 14:00:00 EST, Dry Weight Start Date: 07/27/23 Status: Ordered oxyCODONE 10 mg oral tablet 1 tablet = 10 mg, By Mouth, Every 6 hours, PRN as needed for pain, x ray inspector assessed fill 11/10/23, # 112tablet, 0 Refills, Maintenance, 11/10/23 9:25:00 EDT, Tablet, [facility]/pharmacy #1972, Partial fill uponpatient request if the prescription is for a schedu... Start Date: 11/10/23 Stop Date: 12/08/23 Status: Ordered OxyCONTIN 20 mg oral tablet, extended release 20 mg, 1, tablet, By Mouth, Every 12 hours, x ray inspector chacked fill 11/10/23, # 56 tablet, Refills 0, Tot. Refills 0, Maintenance, 11/10/23 9:25:00 EDT, Route to Pharmacy Electronically, [facility]/pharmacy [...] Confirmed Active Tobacco use disorder Confirmed Active 15712 r lung wedge resection Social History Social History Type Response Smoking Status Former smoker, quit more than 30 days ago; Total pack years: 45; entered on: 09/17/23 Sex Patient Care team information Care Team Personnel Name: Aurelia Yang RN Position: [facility] RN Member Role: Primary Care Nurse Name: Rhonda Escobedo NP Position: [facility] PCO Associate Professional Member Role: PCP Address: Address: [address] [place] [address], [address] [place], [place] [address] Name: Yue Delgado RN Position: [facility] RN Member Role: [...] Persons Name: CHARLINE DIOP Address: [place] [address] Name: ELDER ANDERSON Address: home [address] [place] [address] Name: MAEGAN ANDERSON Address: home [address] [place] [address]
--- OUTSIDE RECORDS SUMMARY | 2024-03-09 07:34 | XMS_ITS | Continuity of Care Document ---
Author Organization [facility] Address [address] [place] [address]- Care Team Providers Care Roll Changer Name Role Phone Rhonda Escobedo NP Primary Care Physician [facility]): 07/03/23 - 08/02/23 [facility] [address] [place] [address]- Attending Physician: Admtr, Sam Admitting Physician: Admtr, Ar8 Referring Physician: Admtr, Ar8 Allergies, Adverse Reactions, [...] each, 5 Refills, Maintenance, 05/18/23 13:33:00 EDT, [facility] 50[facility], 25, INHALE 1 PUFF 4 TIMES A DAY NEEDED FOR COUGH, 170, cm, 05/05/23 12:54:00 EDT, Height, 50, kg, 11/15/21 11:2... Start Date: 05/18/23 Status: Ordered amLODIPine 5 mg oral tablet 1 tablet, By Mouth, Daily, # 90 tablet, 1 Refills, Maintenance, 06/09/23 9:12:00 EST, [facility], 170, cm, 06/03/23 14:00:00 EST, Height, 51, kg, 06/03/23 14:00:00 EST, Dry Weight Start Date: 06/09/23 Status: Ordered atorvastatin 20 mg oral tablet 1 tablet, By Mouth, Daily, # 90 tablet, 1 Refills, Maintenance, 07/29/23 9:02:00 EST, [facility], 170, cm, 06/23/23 10:13:00 EST, Height, 51, kg, 06/03/23 14:00:00 EST, Dry Weight Start Date: 07/29/23 Status: Ordered celecoxib 200 mg oral capsule 1 capsule = 200 mg, By Mouth, 2 times a day, # 14 capsule, 0 Refills, Maintenance, 06/04/23 13:40:00 EST, Capsule, [facility], Partial fill upon patient [...] 06/04/23 13:40:00 EST, Route to Pharmacy Electronically, [facility], Partial fill uponpatient request [...] Unknown, 5 Refills, Maintenance, 12/11/22 19:25:00 EDT, [facility] ST[facility] 27634, 90, INSTILL 2 SPRAYS INTO EACH NOSTRIL 3 TIMES A DAY NEEDED FOR CONGESTION, 1... Start Date: 12/11/22 Status: Ordered metoprolol 25 mg oral tablet 12.5 mg, 0.5, tablet, By Mouth, Every 12 hours, # 30 tablet, Refills 0, Tot. Refills 0, Maintenance, 06/04/23 13:43:00 EST, Route to Pharmacy Electronically, [facility], Partial fill upon patient request if the prescription is for a sche... Start Date: 06/04/23 Stop Date: 07/04/23 Status: Ordered nicotine 14 mg/24 hr transdermal film, extended release 1 patch, Topically, Daily, # 28 patch, 0 Refills, Maintenance, 07/27/23 14:23:00 EST, [facility], 28, APPLY 1 PATCH TOPICALLY DAILY, 170, cm, 06/23/23 10:13:00 EST, Height, 51, kg, 06/03/23 14:00:00 EST, Dry Weight Start Date: 07/27/23 Status: Ordered oxyCODONE 5 mg oral tablet 10 mg, 2, tablet, By Mouth, Every 6 hours, PRN, fill on 07/21/22, # 224 tablet, Refills 0, Tot. Refills 0, Maintenance, as needed for pain, 07/18/23 10:23:00 EST, Route to Pharmacy Electronically, [facility]/pharmacy #[id number], Partial fill upon patient request if... Start Date: 07/18/23 Stop Date: 08/15/23 Status: Ordered OxyCONTIN 20 mg oral tablet, extended release 20 mg, 1, tablet, By Mouth, Every 12 hours, quality control engineer chacked fill 07/21/23, # 56 tablet, Refills 0, Tot. Refills 0, Maintenance, 07/18/23 10:23:00 EST, Route to Pharmacy Electronically, [facility]/pharmacy #1972, Partial fill upon patient [...] Confirmed Active Tobacco use disorder Confirmed Active 45187 r lung wedge resection Social History Social History Type Response Tobacco Use: 4 or less cigar ettes(less than 1/4 pack)/day in last 30 days. Other: 2-3 cig/d x 40 years; was at 0.5 pp/d. Sex Patient Care team information Care Team Personnel Name: Aurelia Yang RN Position: [facility] RN Member Role: Primary Care Nurse Name: Rhonda Escobedo NP Position: [facility] PCO Associate Professional Member Role: PCP Address: Address: [address] [place] [address], [address] [place] [address]- Name: Yue Delgado RN Position: S RN Member Role: Primary Care Nurse Name: Debo Gagnon Position: S RN Member Role: Primary Care Nurse Name: Lisa Awad RN Position: S RN Member Role: Primary Care Nurse Name: Elly Rodriges RN Position: [facility] SN RN Member Role: Primary Care Nurse Name: Nilda Pop RN Position: S RN Member Role: Primary Care Nurse Care Team Related Persons Name: DIOPCHARLINE PEREZ Address: [place] [address] Name: ELDER ANDERSON Address: home [address] [place] [address] Name: MAEGAN ANDERSON Address: home [address] [place] [address]
--- OUTSIDE RECORDS SUMMARY | 2024-03-09 07:34 | XMS_ITS | Continuity of Care Document ---
Author Organization [facility] Address Unknown Care Team Providers Care Authors Motivational Name Role Phone Tonja TOURE, Jeannette Olivera Primary Care Physicia n Encounter [facility] Date(s): 10/23/21 - 10/30/21 [facility] Attending Physician: Garrison Pepper MD [...] 10/17/21 8:30:00 EDT, Route to Pharmacy Electronically, [facility]/pharmacy #[id number], Partial fill upon patient request ifthe [...] Refills, Maintenance, 06/19/21 8:09:00 EST, Tablet, [facility]/pharmacy #1234, [...] Maintenance, 09/24/21 11:18:00 EST, Cream, [facility]/pharmacy [...] 5 Refills, Maintenance, 07/02/21 8:53:00 EST, [facility]/pharmacy #1234, 2 puffs Inhalation Every 4 hours,PRN: [...] oldest [Reference Range]: 1 Height 170 cm (10/23/21 1:35 PM) Weight 56.3 kg (10/23/21 1:35 PM) Pulse Rate [55-90 bpm] 53 bpm *L* (10/23/21 1:35 PM) Body Mass Index [18.5-24.99] 19.48 (10/23/21 1:35 PM) Blood Pressure [90-138/55-84 mm Hg] 138/ 72mm Hg (10/23/21 1:35 PM) Respiratory Rate [16-30 br/min] 16 br/mi n (10/23/21 1:35 PM) Temperature [96.8-100.4 DegF] 97.2 DegF (10/23/21 1:35 PM) Blood pressure sites Arm, right (10/23/21 1:35 PM) Temperature Route Temporal (10/23/21 1:35 PM) Weight Obtained Via Standing scale (10/23/21 1:35 PM) Social History Social History Type Response Tobacco Other: Smokes about 12 cigarettes daily. Prior to this, smoking about 1 PPD for 35 years.. Sex
--- OUTSIDE RECORDS SUMMARY | 2024-03-09 07:34 | XMS_ITS | Continuity of Care Document ---
Author Organization [facility] Adult Address [address] [place] [address]- Care Team Providers Care Lead Carpenter Name Role Phone Fanny CHIEF TECHNOLOGIST, Rhonda Primary Care Physician [facility]s): 06/26/22 - 07/26/22 [facility] [address] [place] [id number]- Allergies, Adverse Reactions, Alerts Substance Reaction Severity [...] Pedro rded influenza virus vaccine, inactivated 03/28/14 Perdo rded influenza virus vaccine, inactivated 04/03/11 Pedro [...] 8.5 each, 5 Refills, Maintenance,06/04/22 13:05:00 EST, [facility] 88340, 30, TAKE 2 PUFFS BY MOUTH EVERY 4 HOURS NEEDED FOR WHEEZING, 170, cm, 04/10/22 14:30:00 EDT, Height, 50, kg,... Start Date: 06/04/22 Status: Ordered amLODIPine 5 mg oral tablet 1 tablet, By Mouth, Daily, # 90 tablet, 1 Refills, Maintenance, 06/23/22 9:11:00 EST, [facility] 95632, 170, cm, 04/10/22 14:30:00 EDT, Height, 50, [...] Stop 12/15/22 11:17:00 EDT, 06/18/22 11:17:00 EST, [facility]/pharmacy #1234, 170, cm, 04/10/22 14:30:00 EDT, Height, [...] 2 Refills, Maintenance, 09/24/21 11:18:00 EST, Cream, [facility]/pharmacy #1234, Partial fill upon patient request if the prescription is for a schedule II opioid drug., 1 application Topically 3 times a day,... Start Date: 09/24/21 Status: Ordered hydrocortisone topical 25 mg suppository 1 supp = 25 mg, Rectally, 2 times a day, # 28 supp, 0 Refills, Maintenance, 10/02/21 13:05:00 EDT, Suppository, [facility]/pharmacy #1234, Partial fill upon patient request if the prescription is for a schedule II opioid drug., 170, cm, 10/02/21 10:36:00 EDT... Start Date: 10/02/21 Stop Date: 10/16/21 Status: Ordered ipratropium nasal 21 mcg/inh spray See Instructions, INSTILL 2 SPRAYS INTO EACH NOSTRIL 3 TIMES A DAY NEEDED FOR CONGESTION, # 90 Unknown, 1 Refills, Maintenance, 07/23/22 14:20:00 EST, [facility] ST[facility] 88372, 90, INSTILL 2 SPRAYS INTO EACH NOSTRIL 3 TIMES A DAY NEEDED FOR CONGESTION, 1... Start Date: 07/23/22 Status: Ordered lisinopril 10 mg oral tablet 1, tablet, By Mouth, Daily, # 90 tablet, Refills 1, Tot. Refills 1, Maintenance, 02/16/22 16:25:00 EDT, [facility], 170, cm, 12/31/21 8:21:00 EDT, Height, 50, kg, 11/15/21 11:23:00 EDT, Dry Weight Start Date: 02/16/22 Status: Ordered Nicotrol Inhaler 10 mg inhalation device See Instructions, USE 6 CARTRIDGES PER DAY, # 168 Unknown, 0 Refills, Maintenance, 02/03/22 9:21:00EDT, [facility], 28, USE 6 CARTRIDGES PER DAY, 170, cm, 12/31/21 8:21:00 EDT, Height, 50, kg, 11/15/21 11:23:00 EDT, Dry Weight Start Date: 02/03/22 Status: Ordered oxyCODONE 10 mg oral tablet 1 tablet = 10 mg, By Mouth, Every 6 hours, PRN as needed for severe pain, fill on 07/24/22, # 112 tablet, 0 Refills, Maintenance, 07/23/22 20:14:00 EST, Tablet, [facility], Partial fill upon patient request if the prescription is for a schedule... Start Date: 07/23/22 Stop Date: 08/20/22 Status: Ordered OxyCONTIN 10 mg oral tablet, extended release 10 mg, 1, tablet, By Mouth, Every 12 hours, fill on 07/24/22, # 56 tablet, Refills 0, Tot. Refills 0,Maintenance, 07/23/22 20:14:00 EST, Route to Pharmacy Electronically, [facility]/pharmacy #[id number], in addition to his IR oxycodone, 170, [...] Care team information Care Team Personnel Name: Rhodna Escobedo NP Position: [facility] PCO Associate Professional Member Role: PCP Address: Address: [address] [place] [address], [address] [place] [address]- Name: Lisa Awad RN Position: [facility] RN Member Role: Primary Care Nurse Name: Elly Rodriges RN Position: [facility] RN Member Role: Primary Care Nurse Care Team Related Persons Name: CHARLINE DIOP Address: [place] [address] Name: ELDER ANDERSON Address: home [address] [place] [address] Name: MAEGAN ANDERSON Address: home [address] [place] [address]
--- OUTSIDE RECORDS SUMMARY | 2024-03-09 07:34 | XMS_ITS | Continuity of Care Document ---
Author Organization [facility] Adult Address [address] [place] [address]- Care Team Providers Care Director Of Education And Training Name Role Phone Fanny TOURE, Rhonda Primary Care Physician [facility]23 - 02/13/23 [facility] Adult [address] [place] [address]- Attending Physician: Not on Staff, Attending MD [...] tablet, 1 Refills, Maintenance, 12/04/22 8:21:00 EDT, [facility]/pharmacy #1972, 170, cm, 08/05/22 8:05:00 EST, Height, 50, kg, 11/15/21 11:23:00 EDT, Dry Weight Start Date: 12/04/22 Status: Ordered Anusol-HC 2.5% cream with applicator 1 application, Rectally, 2 times a day, # 30 Gm, 1 Refills, Maintenance, 09/24/21 13:25:00 EST, Cream, [facility]/pharmacy #1234, Partial [...] Stop 06/13/23 11:17:00 EST, 12/15/22 11:17:00 EDT, [facility]/pharmacy #1972, 170, cm, 08/05/22 8:05:00 EST, Height, 50, kg,11/15/21 11:23:00 EDT, Dry Weight Start Date: 12/15/22 Stop Date: 06/13/23 Status: Ordered atorvastatin 20 mg oral tablet See Instructions, TAKE 1 TABLET BY MOUTH EVERY DAY, # 90 tablet, 1 Refills, Maintenance, 08/05/22 7:46:00 EST, [facility], 170, cm, 08/05/22 7:32:00 EST, Height, 50, kg, 11/15/21 11:23:00 EDT, Dry Weight Start Date: 08/05/22 Status: Ordered atorvastatin 20 mg oral tablet 1 tablet = 20 mg, By Mouth, Daily, # 30 tablet, 5 Refills, Maintenance, 11/17/21 19:20:00 EDT, Tablet, [facility]/pharmacy #1234, Partial fill [...] 3 Refills, Maintenance, 02/08/23 9:24:00 EDT, Capsule, [facility]/pharmacy #1972, Partial fill upon [...] Maintenance, 10/02/21 13:05:00 EDT, Suppository, [facility]/pharmacy #1234, Partial fill upon patient request if the prescription is for a schedule II opioid drug., 170, cm, 10/02/21 10:36:00 EDT... Start Date: 10/02/21 Stop Date: 10/16/21 Status: Ordered ipratropium nasal 21 mcg/inh spray See Instructions, INSTILL 2 SPRAYS INTO EACH NOSTRIL 3 TIMES A DAY NEEDED FOR CONGESTION, # 60 Unknown, 5 Refills, Maintenance, 12/11/22 19:25:00 EDT, [facility], 90, INSTILL 2 SPRAYS INTO EACH NOSTRIL 3 TIMES A DAY NEEDED FOR CONGESTION, 1... Start Date: 12/11/22 Status: Ordered lisinopril 10 mg oral tablet See Instructions, TAKE 1 TABLET BY MOUTH EVERY DAY, # 90 tablet, Refills 0, Maintenance, 02/06/23 8:55:00 EDT, Instructions Replace Required Details, Route to Pharmacy Electronically, [facility], 170, cm, 08/05/22 8:05:00 EST, Height, 50, kg, 04/... Start Date: 02/06/23 Status: Ordered lisinopril 10 mg oral tablet 1, tablet, By Mouth, Daily, # 90 tablet, Refills 0, Tot. Refills 0, Maintenance, 02/05/23 15:07:00 EDT, Route to Pharmacy Electronically, [facility]/pharmacy #1972, 170, cm, 08/05/22 8:05:00 EST, Height, 50, kg, 11/15/21 11:23:00 EDT, Dry Weight Start Date: 02/05/23 Status: Ordered Nicotrol Inhaler 10 mg inhalation device See Instructions, USE 6 CARTRIDGES PER DAY, # 168 Unknown, 0 Refills, Maintenance, 02/03/22 9:21:00EDT, [facility]/pharmacy #1234, 28, USE 6 CARTRIDGES PER DAY, 170, cm, 12/31/21 8:21:00 EDT, Height, 50, kg, 11/15/21 11:23:00 EDT, Dry Weight Start Date: 02/03/22 Status: Ordered oxyCODONE 5 mg oral tablet 10 mg, 2, tablet, By Mouth, Every 6 hours, PRN, fill 02/05/23, # 224 tablet, Refills 0, Tot. Refills0, Maintenance, as needed for pain, 02/03/23 8:44:00 EDT, Route to Pharmacy Electronically, [facility]/pharmacy #1972, Partial fill upon patient request if th... Start Date: 02/03/23 Stop Date: 03/03/23 Status: Ordered OxyCONTIN 10 mg oral tablet, extended release 10 mg, 1, tablet, By Mouth, Every 12 hours, fill 02/05/23, # 56 tablet, Refills 0, Tot. Refills 0, Maintenance, 02/03/23 8:44:00 EDT, Route to Pharmacy Electronically, [facility]/pharmacy #1972, in addition to his IR oxycodone, 170, cm, 08/05/22 8:05:00 EST,... Start Date: 02/03/23 Stop Date: 03/03/23 Status: Ordered Ventolin HFA 108 mcg/inh inhalation aerosol with adapter See Instructions, INHALE 1 PUFF 4 TIMES A DAY NEEDED FOR COUGH, # 18 each, 5 Refills, Maintenance, 12/11/22 19:25:00 EDT, [facility] 701[facility], 170, cm, 08/05/22 8:05:00 EST, Height, 50, [...] [Reference Range]: 1 2 Height 170 cm (02/06/23 9:02 AM) 170 cm (02/06/23 8:55 AM) Weight 55.6 kg (02/06/23 8:55 AM) Oxygen Saturation [94-100 %] 98 % (02/06/23 8:55 AM) Pulse Rate [55-90 bpm] 71 bpm (02/06/23 8:55 AM) Body Mass Index [18.5-24.99 kg/m2] 19.24 kg/m2 (02/06/23 8:55 AM) Blood Pressure [90-138/55-84 mm Hg] 134/ 68mm Hg (02/06/23 9:02 AM) 158/74mm Hg *H* (02/06/23 8:55 AM) Mode of Delivery (Oxygen) Room air (02/06/23 8:55 AM) Blood pressure sites Arm, right (02/06/23 9:02 AM) Arm, right (02/06/23 8:55 AM) Weight Obtained Via Standing scale (02/06/23 8:55 AM) Social History Social History Type Response Tobacco Other: Smokes about 12 cigarettes daily. Prior to this, smoking about 1 PPD for 35 years.. Sex Note * Umu Hogan: PERFORM, SIGN, VERIFY Event Display: Patient Education/Instruction Authored Date: [id number] [facility] *[facility] Clinical Summary Name MIREYA ANDERSON Age 68 Years 1955 PCP Fanny GENERAL STUDIES PROGRAM CHAIR, Rhonda [id number] Visit Date 02/06/2023 08:53:00 Additional Instructions: Scheduled Appointments?? Future Appointments ?*[facility] ?[address],??[address] ?Phone:??--?Fax:??-- ?Appt. Date:??03/30/2023?11:15 AM ?Scheduled Provider:??Rhonda Escobedo NP Follow-Up Instructions ?? Diagnosis Essential (primary) hypertension; Chronic obstructive pulmonary disease, unspecified; Malignant neoplasm of prostate; Other chronic pain; Essential (primary) hypertension; Vitamin D deficiency, unspecified; Dorsalgia, unspecified; Spondylosis without myelopathy or radiculopathy, lumbar region; Hyperglycemia, unspecified Medications: Please continue your medications until treatment is completed or stopped by your provider. Discuss any questions related to medications with your provider. Medications to Continue Taking That Have [facility]anged [facility], [address], [place] [id number], [phone] - Lisinopril (lisinopril 10 mg oral tablet) 1 tab(s) Oral Daily. Refills: 0. Next Dose: - Lisinopril (lisinopril 10 mg oral tablet) TAKE 1 TABLET BY MOUTH EVERY DAY. Refills: 0. Next Dose: Medications to Continue with No Changes [facility], [address], [place] [phone], [phone] Albuterol (Ventolin HFA 108 mcg/inh inhalation aerosol with adapter) INHALE 1 PUFF 4 TIMES A DAY ASNEEDED FOR COUGH. Refills: 5. Next Dose: Amlodipine (amLODIPine 5 mg oral tablet) 1 tab(s) Oral Daily. Refills: 1. Next Dose: Atorvastatin (atorvastatin 20 mg oral tablet) 1 tab(s) Oral Daily for 90 Days. Refills: 1. Next Dose: Ipratropium Nasal (ipratropium nasal 21 mcg/inh spray) INSTILL 2 SPRAYS INTO EACH NOSTRIL 3 TIMES ADAY NEEDED FOR CONGESTION. Refills: 5. Next Dose: Oxycodone (oxyCODONE 5 mg oral tablet) 2 tab(s) Oral every 6 hours as needed as needed for pain for28 Days. fill 02/05/23. Refills: 0. Next Dose: Oxycodone (OxyCONTIN 10 mg oral tablet, extended release) 1 tab(s) Oral every 12 hours for 28 Days.fill 02/05/23. Refills: 0. Next Dose: These medications were not printed or sent to your pharmacy Atorvastatin (atorvastatin 20 mg oral tablet) TAKE 1 TABLET BY MOUTH EVERY DAY. Refills: 1. Next Dose: Atorvastatin (atorvastatin 20 mg oral tablet) 1 tab(s) Oral Daily. Refills: 5. Next Dose: Clonazepam 1 Milligram Oral 3 [...] for 14 Days. Refills: 0. Next Dose: Miscellaneous Rx (Ensure) 3 cans daily to maintain weight. Equal numbers chocolate and strawberry. Dx achalasia. Refills: 5. Next Dose: Nicotine (Nicotrol Inhaler 10 mg inhalation device) USE 6 CARTRIDGES PER DAY. Refills: 0. Next Dose: Allergy Info:?? morphine Medications Given This Visit Future Orders ?No future orders Vital Signs Height 170 cm Weight 55.6 kg BMI 19.24 kg/m2 Blood Pressure 134 mm Hg/68 mm Hg Temperature Pulse Rate 71 bpm Respiratory Rate 02 Sat Mode of Delivery 98 %/Room air You can now view a summary of your hospital visit from the comfort of your home through a free online portal called [employer]. [employer] is a website that allows you to securely view your medical information including discharge summary, medications and follow-up visits. ??You can alsosend a secure electronic message to your doctor???s office to request appointments, renew medications or just ask a question. You can enroll at [email or web address] or register during your next office visit. [...] primary care provider, you may find a [facility] provider by calling [facility] Our Security Team Link at [phone]. For information about the plan of care [...] Team Personnel Name: Rhonda Escobedo NP Position: [facility] PCO Associate Professional Member Role: PCP Address: Address: [address] [place] [address], [address] [place], [place] [address] Name: Lisa Awad RN Position: [facility] RN Member Role: Primary Care Nurse Name: Elly Rodriges RN Position: [facility] RN Member Role: Primary Care Nurse Care Team Related Persons Name: REVA DIOPFER Address: [place] [address] Name: ELDER ANDERSON Address: home [address] [place] [address] Name: MAEGAN ANDERSON Address: home [address] [place] [address]
--- OUTSIDE RECORDS SUMMARY | 2024-03-09 07:34 | XMS_ITS | Continuity of Care Document ---
Author Organization [facility] Address [address] [place], [place] [address]julien [address]ade, [address] [place] [address]- Care Team Providers Care Broach Operator Name Role Phone Tonja TOURE, Jeannette Olivera Primary Care Physicia n [facility]20 - 01/19/21 [facility] [address] [place] [address] Drive, [address] [place] [address]- Allergies, Adverse Reactions, Alerts Substance Reaction Severity [...] 12/31/20 9:59:00 EDT, Route to Pharmacy Electronically, [facility]/pharmacy #1234, Partialfill upon patient request if [...] Refills, Maintenance, 08/23/20 13:22:00 EST, CR Tablet, [facility]/pharmacy #1234, Partial fill upon patient [...]
--- OUTSIDE RECORDS SUMMARY | 2024-03-09 07:34 | XMS_ITS | Continuity of Care Document ---
Author Organization [facility] Adult Address [address] [place] [address]- Care Team Providers Care Operations Officer Afloat Name Role Phone Fanny TOURE, Rhonda Primary Care Physician [facility]): 08/17/23 - 09/16/23 [facility] Adult [address] [place] [address]- Allergies, Adverse Reactions, Alerts Substance Reaction Severity [...] Refills, Maintenance, 05/18/23 13:33:00 EDT, [facility], 25, INHALE 1 PUFF 4 TIMES A DAY NEEDED FOR COUGH, 170, cm, 05/05/23 12:54:00 EDT, Height, 50, kg, 11/15/21 11:2... Start Date: 05/18/23 Status: Ordered amLODIPine 5 mg oral tablet 1 tablet, By Mouth, Daily, # 90 tablet, 1 Refills, Maintenance, 06/09/23 9:12:00 EST, [facility], 170, cm, 06/03/23 14:00:00 EST, Height, 51, kg, 06/03/23 14:00:00 EST, Dry Weight Start Date: 06/09/23 Status: Ordered atorvastatin 20 mg oral tablet 1 tablet, By Mouth, Daily, # 90 tablet, 1 Refills, Maintenance, 07/29/23 9:02:00 EST, [facility], 170, cm, 06/23/23 10:13:00 EST, Height, 51, [...] EST, Route to Pharmacy Electronically, [facility], Partial fill uponpatient request [...] Unknown, 5 Refills, Maintenance, 12/11/22 19:25:00 EDT, [facility], 90, INSTILL 2 SPRAYS INTO EACH NOSTRIL 3 TIMES A DAY NEEDED FOR CONGESTION, 1... Start Date: 12/11/22 Status: Ordered lisinopril 10 mg oral tablet 1, tablet, By Mouth, Daily, # 90 tablet, Refills 1, Maintenance, 09/07/23 9:20:00 EST, Route to Pharmacy Electronically, [facility] 40[facility], 170, cm, 07/29/23 14:04:00 EST, Height, 51, [...] patch, 0 Refills, Maintenance, 07/27/23 14:23:00 EST, [facility] STORE 04109, 28, APPLY 1 PATCH TOPICALLY DAILY, 170, cm, 06/23/23 10:13:00 EST, Height, 51, kg, 06/03/23 14:00:00 EST, Dry Weight Start Date: 07/27/23 Status: Ordered oxyCODONE 10 mg oral tablet 1 tablet = 10 mg, By Mouth, Every 6 hours, PRN as needed for pain, forgesmith assessed fill 09/15, # 112 tablet, 0 Refills, Maintenance, 09/14/23 20:05:00 EST, Tablet, [facility]/pharmacy #1972, Partial fill upon patient request if the prescription is for a schedule... Start Date: 09/14/23 Stop Date: 10/12/23 Status: Ordered OxyCONTIN 20 mg oral tablet, extended release 20 mg, 1, tablet, By Mouth, Every 12 hours, forgesmith chacked fill 09/15/23, # 56 tablet, Refills 0, Tot. Refills 0, Maintenance, 09/14/23 20:07:00 EST, Route to Pharmacy Electronically, [facility]/pharmacy #1972,Partial fill upon patient request if [...] Confirmed Active Tobacco use disorder Confirmed Active 93588 r lung wedge resection Social History Social History Type Response Tobacco Use: 4 or less cigar ettes(less than 1/4 pack)/day in last 30 days. Other: 2-3 cig/d x 40 years; was at 0.5 pp/d. Sex Patient Care team information Care Team Personnel Name: Aurelia Yang RN Position: [facility] RN Member Role: Primary Care Nurse Name: Rhonda Escobedo NP Position: [facility] PCO Associate Professional Member Role: PCP Address: Address: [address] [place] [address], [address] [place], [place] [address] Name: Yue Delgado RN Position: S RN Member Role: Primary Care Nurse Name: Debo Gagnon Position: S RN Member Role: Primary Care Nurse Name: Lisa Awad RN Position: S RN Member Role: Primary Care Nurse Name: Elly Rodriges RN Position: [facility] RN Member Role: Primary Care Nurse Name: Nilda Pop RN Position: S RN Member Role: Primary Care Nurse Care Team Related Persons Name: CHARLINE DIOP Address: [place] [address] Name: ELDER ANDERSON Address: home [address] [place] [address] Name: MAEGAN ANDERSON Address: home [address] [place] [address]
--- OUTSIDE RECORDS SUMMARY | 2024-03-09 07:34 | XMS_ITS | Continuity of Care Document ---
Author Organization [facility] Adult Address [address] [place] [address]- Care Team Providers Care Combat Control Manager Name Role Phone Fanny TOURE, Rhonda Primary Care Physician [facility] 10[facility]27[facility]23 - 11/26/23 [facility] Adult [address] [place] [address]- Allergies, Adverse Reactions, Alerts Substance Reaction Severity [...] Refills, Maintenance, 06/09/23 9:12:00 EST, [facility], 170, cm, 06/03/23 14:00:00 EST, Height, 51, kg, 06/03/23 14:00:00 EST, Dry Weight Start Date: 06/09/23 Status: Ordered atorvastatin 20 mg oral tablet 1 tablet, By Mouth, Daily, # 90 tablet, 1 Refills, Maintenance, 07/29/23 9:02:00 EST, [facility], 170, cm, 06/23/23 10:13:00 EST, Height, 51, kg, 06/03/23 14:00:00 EST, Dry Weight Start Date: 07/29/23 Status: Ordered celecoxib 200 mg oral capsule 1 capsule = 200 mg, By Mouth, 2 times a day, # 14 capsule, 0 Refills, Maintenance, 06/04/23 13:40:00 EST, Capsule, [facility], Partial fill upon [...] 06/04/23 13:40:00 EST, Route to Pharmacy Electronically, [facility], Partial fill uponpatient request if the [...] Unknown, 5 Refills, Maintenance, 12/11/22 19:25:00 EDT, [facility], 90, INSTILL 2 SPRAYS INTO EACH NOSTRIL 3 TIMES A DAY NEEDED FOR CONGESTION, 1... Start Date: 12/11/22 Status: Ordered lisinopril 10 mg oral tablet 1, tablet, By Mouth, Daily, # 90 tablet, Refills 1, Maintenance, 09/07/23 9:20:00 EST, Route to Pharmacy Electronically, [facility] 02794, 170, cm, 07/29/23 14:04:00 EST, Height, 51, kg, 06/03/23 14:00:00 EST, Dry Weight Start Date: 09/07/23 Status: Ordered metoprolol 25 mg oral tablet 12.5 mg, 0.5, tablet, By Mouth, Every 12 hours, # 30 tablet, Refills 0, Tot. Refills 0, Maintenance, 06/04/23 13:43:00 EST, Route to Pharmacy Electronically, [facility], Partial fill upon patient request if the prescription is for a sche... Start Date: 06/04/23 Stop Date: 07/04/23 Status: Ordered nicotine 14 mg/24 hr transdermal film, extended release 1 patch, Topically, Daily, # 28 patch, 0 Refills, Maintenance, 07/27/23 14:23:00 EST, [facility] STORE 73016, 28, APPLY 1 PATCH TOPICALLY DAILY, 170, cm, 06/23/23 10:13:00 EST, Height, 51, kg, 06/03/23 14:00:00 EST, Dry Weight Start Date: 07/27/23 Status: Ordered oxyCODONE 10 mg oral tablet 1 tablet = 10 mg, By Mouth, Every 6 hours, PRN as needed for pain, lead javascript developer assessed fill 11/10/23, # 112tablet, 0 Refills, Maintenance, 11/10/23 9:25:00 EDT, Tablet, [facility]/pharmacy #1972, Partial fill uponpatient request if the prescription is for a schedu... Start Date: 11/10/23 Stop Date: 12/08/23 Status: Ordered OxyCONTIN 20 mg oral tablet, extended release 20 mg, 1, tablet, By Mouth, Every 12 hours, lead javascript developer chacked fill 11/10/23, # 56 tablet, Refills 0, Tot. Refills 0, Maintenance, 11/10/23 9:25:00 EDT, Route to Pharmacy Electronically, [facility]/pharmacy #1972, Partial fill upon patient [...] Confirmed Active Tobacco use disorder Confirmed Active 14215 r lung wedge resection Social History Social History Type Response Smoking Status Former smoker, quit more than 30 days ago; Total pack years: 45; entered on: 09/17/23 Sex Patient Care team information Care Team Personnel Name: Aurelia Yang RN Position: [facility] RN Member Role: Primary Care Nurse Name: Rhonda Escobedo NP Position: [facility] PCO Associate Professional Member Role: PCP Address: Address: [address] [place] [address], [address] [place], [place] [address] Name: Yue Delagdo RN Position: [facility] RN Member Role: Primary Care Nurse Name: Debo Gagnon Position: S RN Member Role: Primary Care Nurse Name: Lisa Awad RN Position: S RN Member Role: Primary Care Nurse Name: Elly Rodriges RN Position: [facility] RN Member Role: Primary Care Nurse Name: Nilda Pop RN Position: S RN Member Role: Primary Care Nurse Care Team Related Persons Name: CHARLINE DIOP Address: [place] [address] Name: ELDER ANDERSON Address: home [address] [place] [address] Name: MAEGAN ANDERSON Address: home [address] [place] [address]
--- OUTSIDE RECORDS SUMMARY | 2024-03-09 07:34 | XMS_ITS | Continuity of Care Document ---
Author Organization [facility] Address [address] [place] [address] [address], [address] [place] [address]- Care Team Providers Care Environmental Services Aide Name Role Phone Fanny TOURE, Rhonda Primary Care Physician [phone] [facility]23 - 06/27/23 [facility] [address] [place] [address], [address] [place] [address]- Allergies, Adverse Reactions, Alerts Substance Reaction Severity [...] Refills, Maintenance, 05/18/23 13:33:00 EDT, [facility], 25, INHALE 1 PUFF 4 TIMES A DAY NEEDED FOR COUGH, 170, cm, 05/05/23 12:54:00 EDT, Height, 50, kg, 11/15/21 11:2... Start Date: 05/18/23 Status: Ordered amLODIPine 5 mg oral tablet 1 tablet, By Mouth, Daily, # 90 tablet, 1 Refills, Maintenance, 06/09/23 9:12:00 EST, [facility], 170, cm, 06/03/23 14:00:00 EST, Height, 51, kg, 06/03/23 14:00:00 EST, Dry Weight Start Date: 06/09/23 Status: Ordered celecoxib 200 mg oral capsule 1 capsule = 200 mg, By Mouth, 2 times a day, # 14 capsule, 0 Refills, Maintenance, 06/04/23 13:40:00 EST, Capsule, [facility], Partial fill upon patient request if the prescription is for a schedule II opioid drug., 170, cm, 06/03/23 14:... Start Date: 06/04/23 Stop Date: 06/11/23 Status: Ordered cholecalciferol 50,000 intl units oral capsule 1 capsule = 50,000 International_Units, By Mouth, Every 7 days, # 13 capsule, 3 Refills, Maintenance, 02/08/23 9:24:00 EDT, Capsule, [facility]/pharmacy #1972, Partial fill upon patient [...] 06/04/23 13:40:00 EST, Route to Pharmacy Electronically, [facility], Partial fill uponpatient request if [...] 5 Refills, Maintenance, 12/11/22 19:25:00 EDT, [facility] STORE 89274, 90, INSTILL 2 SPRAYS INTO EACH NOSTRIL 3 TIMES A DAY NEEDED FOR CONGESTION, 1... Start Date: 12/11/22 Status: Ordered metoprolol 25 mg oral tablet 12.5 mg, 0.5, tablet, By Mouth, Every 12 hours, # 30 tablet, Refills 0, Tot. Refills 0, Maintenance, 06/04/23 13:43:00 EST, Route to Pharmacy Electronically, [facility], Partial fill upon patient request [...] 1, tablet, By Mouth, Every 12 hours, tail board man chacked fill 06/23/23, # 56 tablet, Refills [...] Confirmed Active Tobacco use disorder Confirmed Active 83453 r lung wedge resection Social History Social History Type Response Tobacco Use: 4 or less cigar ettes(less than 1/4 pack)/day in last 30 days. Other: 2-3 cig/d x 40 years; was at 0.5 pp/d. Sex Patient Care team information Care Team Personnel Name: Aurelia Yang RN Position: S RN Member Role: Primary Care Nurse Name: Rhonda Escobedo NP Position: [facility] PCO Associate Professional Member Role: PCP Address: Address: [address] [place] [address], [address]rd [address] [place], [place] [address] Name: Yue Delgado RN Position: S RN Member Role: Primary Care Nurse Name: Debo Gagnon Position: S RN Member Role: Primary Care Nurse Name: Lisa Awad RN Position: S RN Member Role: Primary Care Nurse Name: Elly Rodriges RN Position: [facility] RN Member Role: Primary Care Nurse Name: Nilda Pop RN Position: S RN Member Role: Primary Care Nurse Care Team Related Persons Name: CHARLINE DIOP Address: [place] [address] Name: ELDER ANDERSON Address: home [address] [place] [address] Name: MAEGAN ANDERSON Address: home [address] [place] [address]
--- OUTSIDE RECORDS SUMMARY | 2024-03-09 07:34 | XMS_ITS | Continuity of Care Document ---
Author Organization [facility] Adult Address [address] [place] [address]- Care Team Providers Care Folder Stitcher Operator Name Role Phone Fanny TOURE, Rhonda Primary Care Physician [facility]): 07/28/23 - 08/27/23 [facility] [address] [place] [address]- Allergies, Adverse Reactions, Alerts Substance Reaction Severity [...] Refills, Maintenance, 05/18/23 13:33:00 EDT, [facility], 25, INHALE 1 PUFF 4 TIMES A DAY NEEDED FOR COUGH, 170, cm, 05/05/23 12:54:00 EDT, Height, 50, kg, 11/15/21 11:2... Start Date: 05/18/23 Status: Ordered amLODIPine 5 mg oral tablet 1 tablet, By Mouth, Daily, # 90 tablet, 1 Refills, Maintenance, 06/09/23 9:12:00 EST, [facility], 170, cm, 06/03/23 14:00:00 EST, Height, 51, kg, 06/03/23 14:00:00 EST, Dry Weight Start Date: 06/09/23 Status: Ordered atorvastatin 20 mg oral tablet 1 tablet, By Mouth, Daily, # 90 tablet, 1 Refills, Maintenance, 07/29/23 9:02:00 EST, [facility], 170, cm, 06/23/23 10:13:00 EST, Height, 51, [...] EST, Route to Pharmacy Electronically, [facility], Partial fill uponpatient request if the [...] 5 Refills, Maintenance, 12/11/22 19:25:00 EDT, [facility] ST[facility] 10282, 90, INSTILL 2 SPRAYS INTO EACH NOSTRIL [...] Refills, Maintenance, 07/27/23 14:23:00 EST, [facility], 28, APPLY 1 PATCH TOPICALLY DAILY, 170, cm, 06/23/23 10:13:00 EST, Height, 51, kg, 06/03/23 14:00:00 EST, Dry Weight Start Date: 07/27/23 Status: Ordered oxyCODONE 5 mg oral tablet 10 mg, 2, tablet, By Mouth, Every 6 hours, PRN, fill on 08/18/23, # 224 tablet, Refills 0, Tot. Refills 0, Maintenance, as needed for pain, 08/18/23 9:46:00 EST, Route to Pharmacy Electronically, [facility]/pharmacy #1972, Partial fill upon patient request if... Start Date: 08/18/23 Stop Date: 09/15/23 Status: Ordered OxyCONTIN 20 mg oral tablet, extended release 20 mg, 1, tablet, By Mouth, Every 12 hours, senior insight manager chacked fill 08/18/23, # 56 tablet, Refills 0, Tot. Refills 0, Maintenance, 08/18/23 9:46:00 EST, Route to Pharmacy Electronically, [facility]/pharmacy #1972, Partial fill upon patient request if [...] Confirmed Active Tobacco use disorder Confirmed Active 49818 r lung wedge resection Social History Social [...] Associate Professional Member Role: PCP Address: Address: [address] [place] [address], [address]rd [place] [address]- Name: Yue Delgado RN Position: S RN Member Role: Primary Care Nurse Name: Debo Gagnon Position: S RN Member Role: Primary Care Nurse Name: Lisa Awad RN Position: S RN Member Role: Primary Care Nurse Name: Elly Rodriges RN Position: [facility] SN RN Member Role: Primary Care Nurse Name: Nilda Pop RN Position: S RN Member Role: Primary Care Nurse Care Team Related Persons Name: JADON CHARLINE Address: [place] [address] Name: ELDER ANDERSON Address: home [address] [place] [address] Name: MAEGAN ANDERSON Address: home [address] [place] [address]
--- OUTSIDE RECORDS SUMMARY | 2024-03-09 07:34 | XMS_ITS | Continuity of Care Document ---
Author Organization [facility] Adult Address [address] [place] [address]- Care Team Providers Care Mass Spec Name Role Phone Fanny TOURE, Rhonda Primary Care Physician [facility]s): 11/03/23 - 12/03/23 [facility] [address] [place] [address]- Allergies, Adverse Reactions, Alerts Substance Reaction Severity [...] Refills, Maintenance, 06/09/23 9:12:00 EST, [facility], 170, cm, 06/03/23 14:00:00 EST, Height, 51, kg, 06/03/23 14:00:00 EST, Dry Weight Start Date: 06/09/23 Status: Ordered atorvastatin 20 mg oral tablet 1 tablet, By Mouth, Daily, # 90 tablet, 1 Refills, Maintenance, 07/29/23 9:02:00 EST, [facility], 170, cm, 06/23/23 10:13:00 EST, Height, 51, [...] Route to Pharmacy Electronically, [facility], Partial fill uponpatient request if [...] Unknown, 5 Refills, Maintenance, 12/11/22 19:25:00 EDT, [email or web address], 90, INSTILL 2 SPRAYS INTO EACH NOSTRIL 3 TIMES A DAY NEEDED FOR CONGESTION, 1... Start Date: 12/11/22 Status: Ordered lisinopril 10 mg oral tablet 1, tablet, By Mouth, Daily, # 90 tablet, Refills 1, Maintenance, 09/07/23 9:20:00 EST, Route to Pharmacy Electronically, [email or web address] 74[facility], 170, cm, 07/29/23 14:04:00 EST, Height, 51, [...] 0 Refills, Maintenance, 07/27/23 14:23:00 EST, [facility]45, 28, APPLY 1 PATCH TOPICALLY DAILY, 170, cm, 06/23/23 10:13:00 EST, Height, 51, kg, 06/03/23 14:00:00 EST, Dry Weight Start Date: 07/27/23 Status: Ordered oxyCODONE 10 mg oral tablet 1 tablet = 10 mg, By Mouth, Every 6 hours, PRN as needed for pain, working manager assessed fill 11/10/23, # 112tablet, 0 Refills, Maintenance, 11/10/23 9:25:00 EDT, Tablet, [facility]/pharmacy #1972, Partial fill uponpatient request if the prescription is for a schedu... Start Date: 11/10/23 Stop Date: 12/08/23 Status: Ordered OxyCONTIN 20 mg oral tablet, extended release 20 mg, 1, tablet, By Mouth, Every 12 hours, working manager chacked fill 11/10/23, # 56 tablet, Refills 0, Tot. Refills 0, Maintenance, 11/10/23 9:25:00 EDT, Route to Pharmacy Electronically, [facility]/pharmacy #1972, Partial fill upon patient request if the prescriptio... 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 vsaile, 06/24/23 12:55:00 EST, Supply Start Date: 06/24/23 [...] Confirmed Active Tobacco use disorder Confirmed Active 44461 r lung wedge resection Social History Social History Type Response Smoking Status Former smoker, quit more than 30 days ago; Total pack years: 45; entered on: 09/17/23 Sex Patient Care team information Care Team Personnel Name: Aurelia Yang RN Position: [facility] RN Member Role: Primary Care Nurse Name: Rhonda Escobedo NP Position: [facility] PCO Associate Professional Member Role: PCP Address: Address: [address] [place] [address], 3[address] [place], [place] [address] Name: Yue Delgado RN Position: [facility] RN Member Role: Primary Care Nurse Name: Debo Gagnon Position: S RN Member Role: Primary Care Nurse Name: Lisa Awad RN Position: S RN Member Role: Primary Care Nurse Name: Elly Rodriges RN Position: [facility] RN Member Role: Primary Care Nurse Name: Nilda Pop RN Position: S RN Member Role: Primary Care Nurse Care Team Related Persons Name: CHARLINE DIOP Address: [place] [address] Name: ELDER ANDERSON Address: home [address] [place] [address] Name: MAEGAN ANDERSON Address: home [address] [place] [address]
--- OUTSIDE RECORDS SUMMARY | 2024-03-09 07:34 | XMS_ITS | Continuity of Care Document ---
Author Organization [facility] Address Unknown Care Team Providers Care C Java Developer Name Role Phone Tonja TOURE, Jeannette Olivera Primary Care Physicia n [place] [facility] [place] 10/09/21 [facility] Attending Physician: Breann TOURE, [...] 2 Refills, Maintenance, 09/24/21 11:18:00 EST, Cream, [facility]/pharmacy #1234, Partial fill [...] 84 capsule, 0 Refills, Maintenance, 04/15/21 10:30:00EDT, [facility]/pharmacy #1234, Partial fill upon patient request if the prescription is for a schedule IIopioid drug., use 6 cartridges per day, 170, cm, 09... Start Date: 04/15/21 Status: Ordered ProAir HFA 90 mcg/inh inhalation aerosol 2 puffs, Inhalation, Every 4 hours, PRN NEEDED FOR WHEEZE, # 1 each, 5 Refills, Maintenance, 07/02/21 8:53:00 EST, [facility]/pharmacy #1234, 2 puffs Inhalation Every 4 hours,PRN: [...] oldest [Reference Range]: 1 Height 170 cm (10/02/21 10:36 AM) Weight 55.9 kg (10/02/21 10:36 AM) Pulse Rate [55-90 bpm] 100 bpm *H* (10/02/21 10:36 AM) Body Mass Index [18.5-24.99] 19.34 (10/02/21 10:36 AM) Blood Pressure [90-138/55-84 mm Hg] 176/ 90mm Hg *H* (10/02/21 10:36 AM) Respiratory Rate [16-30 br/min] 16 br/mi n (10/02/21 10:36 AM) Temperature [96.8-100.4 DegF] 96.9 DegF (10/02/21 10:36 AM) Social History Social History Type Response Tobacco Other: Smokes about 12 cigarettes daily. Prior to this, smoking about 1 PPD for 35 years.. Sex
--- OUTSIDE RECORDS SUMMARY | 2024-03-09 07:34 | XMS_ITS | Continuity of Care Document ---
Author Organization [facility] Address Unknown Care Team Providers Care Jewelry Sales Associate Name Role Phone Fanny TOURE, Rhonda Primary Care Physician [phone] [facility]s): 11/04/21 - 11/11/21 [facility] Attending Physician: Breann TOURE, [...] 10/17/21 8:30:00 EDT, Route to Pharmacy Electronically, [facility]/pharmacy #1234, Partial fill upon patient request ifthe prescription is for a schedule II opioid drug.,... Start Date: 10/17/21 Status: Ordered Anusol-HC 2.5% cream with applicator 1 application, Rectally, 2 times a day, # 30 Gm, 1 Refills, Maintenance, 09/24/21 13:25:00 EST, Cream, [facility]/pharmacy #1234, Partial fill upon patient request if the prescription is for a schedule II opioid drug., 1 application Rectally 2 times a day, 1... Start Date: 09/24/21 Status: Ordered Anusol-HC 2.5% cream with applicator 1 application, Rectally, 2 times a day, # 30 Gm, 1 Refills, Maintenance, 06/27/21 14:24:00 EST, Cream, [facility]/pharmacy #1234, Partial fill upon patient request if the prescription is for a schedule II opioid drug., 1 application Rectally 2 times a day, 1... Start Date: 06/27/21 Status: Ordered atorvastatin 20 mg oral tablet 1 tablet = 20 mg, By Mouth, Daily, # 30 tablet, 5 Refills, Maintenance, 06/19/21 8:09:00 EST, Tablet, [facility]/pharmacy #1234, Partial fill upon patient request [...] Refills, Maintenance, 09/24/21 11:18:00 EST, Cream, [facility]/pharmacy #1234, Partial fill upon patient request if the prescription is for a schedule II opioid drug., 1 application Topically 3 times a day,... Start Date: 09/24/21 Status: Ordered hydrocortisone topical 25 mg suppository 1 supp = 25 mg, Rectally, 2 times a day, # 28 supp, 0 Refills, Maintenance, 10/02/21 13:05:00 EDT, Suppository, [facility]/pharmacy #1234, Partial fill upon patient request if the prescription is for a schedule II opioid drug., 170, cm, 10/02/21 10:36:00 EDT... Start Date: 10/02/21 Stop Date: 10/16/21 Status: Ordered lisinopril 40 mg oral tablet 1 tablet = 40 mg, By Mouth, Daily, # 30 tablet, 5 Refills, Maintenance, 07/03/21 10:04:00 EST, Tablet, [facility]/pharmacy #1234, Partial fill upon patient request [...] 11/18/21 8:27:00 EDT, 11/11/21 8:27:00 EDT, Tablet, [facility]/pharmacy #1234, Partial fill upon patient request if the pres... Start Date: 11/11/21 Stop Date: 11/18/21 Status: Ordered ProAir HFA 90 mcg/inh inhalation aerosol 2 puffs, Inhalation, Every 4 hours, PRN NEEDED FOR WHEEZE, # 1 each, 5 Refills, Maintenance, 07/02/21 8:53:00 EST, [facility]/pharmacy #1234, 2 puffs Inhalation Every 4 [...] oldest [Reference Range]: 1 Height 170 cm (11/04/21 9:28 AM) Weight 58.6 kg (11/04/21 9:28 AM) Pulse Rate [55-90 bpm] 100 bpm *H* (11/04/21 9:28 AM) Body Mass Index [18.5-24.99] 20.28 (11/04/21 9:28 AM) Blood Pressure [90-138/55-84 mm Hg] 142/ 86mm Hg *H* (11/04/21 9:28 AM) Respiratory Rate [16-30 br/min] 16 br/mi n (11/04/21 9:28 AM) Temperature [96.8-100.4 DegF] 97.7 DegF (11/04/21 9:28 AM) Social History Social History Type Response Tobacco Other: Smokes about 12 cigarettes daily. Prior to this, smoking about 1 PPD for 35 years.. Sex
--- OUTSIDE RECORDS SUMMARY | 2024-03-09 07:34 | XMS_ITS | Continuity of Care Document ---
Author Organization [facility] Adult Address [address] [place] [address]- Care Team Providers Care Food Safety Auditor Name Role Phone Fanny TOURE, Rhonda Primary Care Physician [phone] [facility]s): 02/08/23 - 03/10/23 [facility] [address] [place] [address]- Allergies, Adverse Reactions, Alerts Substance Reaction Severity [...] tablet, 1 Refills, Maintenance, 12/04/22 8:21:00 EDT, [facility]/pharmacy #1972, 170, cm, 08/05/22 8:05:00 EST, Height, 50, kg, 11/15/21 11:23:00 EDT, Dry Weight Start Date: 12/04/22 Status: Ordered Anusol-HC 2.5% cream with applicator 1 application, Rectally, 2 times a day, # 30 Gm, 1 Refills, Maintenance, 09/24/21 13:25:00 EST, Cream, [facility]/pharmacy #1234, Partial fill upon patient request if the prescription is for a schedule II opioid drug., 1 application Rectally 2 times a day, 1... Start Date: 09/24/21 Status: Ordered Anusol-HC 2.5% cream with applicator 1 application, Rectally, 2 times a day, # 30 Gm, 1 Refills, Maintenance, 06/27/21 14:24:00 EST, Cream, [facility]/pharmacy #1234, Partial fill upon patient request if the prescription is for a schedule II opioid drug., 1 application Rectally 2 times a day, 1... Start Date: 06/27/21 Status: Ordered atorvastatin 20 mg oral tablet 1 tablet = 20 mg, By Mouth, Daily, for 90 days, # 90 tablet, 1 Refills, Physician Stop 06/13/23 11:17:00 EST, 12/15/22 11:17:00 EDT, [facility]/pharmacy #1972, 170, cm, 08/05/22 8:05:00 EST, Height, 50, kg,11/15/21 11:23:00 EDT, Dry Weight Start Date: 12/15/22 Stop Date: 06/13/23 Status: Ordered atorvastatin 20 mg oral tablet See Instructions, TAKE 1 TABLET BY MOUTH EVERY DAY, # 90 tablet, 1 Refills, Maintenance, 08/05/22 7:46:00 EST, [facility], 170, cm, 08/05/22 7:32:00 EST, Height, 50, [...] 0 Refills, Maintenance, 10/02/21 13:05:00 EDT, Suppository, [facility]/pharmacy #1234, Partial fill upon patient request if the prescription is for a schedule II opioid drug., 170, cm, 10/02/21 10:36:00 EDT... Start Date: 10/02/21 Stop Date: 10/16/21 Status: Ordered ipratropium nasal 21 mcg/inh spray See Instructions, INSTILL 2 SPRAYS INTO EACH NOSTRIL 3 TIMES A DAY NEEDED FOR CONGESTION, # 60 Unknown, 5 Refills, Maintenance, 12/11/22 19:25:00 EDT, [facility] 87947, 90, INSTILL 2 SPRAYS INTO EACH NOSTRIL 3 TIMES A DAY NEEDED FOR CONGESTION, 1... Start Date: 12/11/22 Status: Ordered lisinopril 10 mg oral tablet See Instructions, TAKE 1 TABLET BY MOUTH EVERY DAY, # 90 tablet, Refills 0, Maintenance, 02/06/23 8:55:00 EDT, Instructions Replace Required Details, Route to Pharmacy Electronically, [facility] 54241, 170, cm, 08/05/22 8:05:00 EST, Height, 50, kg, 04... Start Date: 02/06/23 Status: Ordered lisinopril 10 mg oral tablet 1, tablet, By Mouth, Daily, # 90 tablet, Refills 0, Tot. Refills 0, Maintenance, 02/05/23 15:07:00 EDT, Route to Pharmacy Electronically, [facility]/pharmacy #1972, 170, cm, 08/05/22 8:05:00 EST, Height, 50, kg, 11/15/21 11:23:00 EDT, Dry Weight Start Date: 02/05/23 Status: Ordered nicotine 14 mg/24 hr transdermal film, extended release 1 patch, Topically, Daily, for 14 days, # 14 patch, 1 Refills, Acute 04/02/23 12:29:00 EDT, 03/05/23 12:29:00 EDT, Patch, [facility]/pharmacy #1972, Partial fill upon patient request if the prescription is for a schedule II opioid drug., 1 patch Topically Da... Start Date: 03/05/23 Stop Date: 04/02/23 Status: Ordered Nicotrol Inhaler 10 mg inhalation device See Instructions, USE 6 CARTRIDGES PER DAY, # 168 Unknown, 0 Refills, Maintenance, 02/03/22 9:21:00EDT, [facility]/pharmacy #1234, 28, USE 6 CARTRIDGES PER DAY, 170, cm, 12/31/21 8:21:00 EDT, Height, 50, kg, 11/15/21 11:23:00 EDT, Dry Weight Start Date: 02/03/22 Status: Ordered oxyCODONE 5 mg oral tablet 10 mg, 2, tablet, By Mouth, Every 6 hours, PRN, BOATSWAINS MATE checked. Fill on 03/05/23, # 224 tablet, Refills0, Tot. Refills 0, Maintenance, as needed for pain, 02/21/23 8:44:00 EDT, Route to Pharmacy Electronically, [facility]/pharmacy #1972, Partial fill upon patie... Start Date: 02/21/23 Stop Date: 03/21/23 Status: Ordered OxyCONTIN 10 mg oral tablet, extended release 10 mg, 1, tablet, By Mouth, Every 12 hours, BOATSWAINS MATE checked. Fill on 03/05/23, # 56 tablet, Refills 0, Tot. Refills 0, Maintenance, 02/21/23 8:44:00 EDT, Route to Pharmacy Electronically, [facility]/pharmacy #1972, in addition to his IR oxycodone, 170, cm, 02/06/... Start Date: 02/21/23 Stop Date: 03/21/23 Status: Ordered Ventolin HFA 108 mcg/inh inhalation aerosol with adapter See Instructions, INHALE 1 PUFF 4 TIMES A DAY NEEDED FOR COUGH, # 18 each, 5 Refills, Maintenance, 12/11/22 19:25:00 EDT, [facility] 8[facility], 170, cm, 08/05/22 8:05:00 EST, Height, 50, [...] Associate Professional Member Role: PCP Address: Address: [address] [place] [address], 3rd [place] [address]- Name: Lisa Awad RN Position: S RN Member Role: Primary Care Nurse Name: Elly Rodriges RN Position: [facility] RN Member Role: Primary Care Nurse Care Team Related Persons Name: CHARLINE DIOP Address: [place] [address] Name: ELDER ANDERSON Address: home [address] [place] [address] Name: MAEGAN ANDERSON Address: home [address] [place] [address]
--- OUTSIDE RECORDS SUMMARY | 2024-03-09 07:34 | XMS_ITS | Continuity of Care Document ---
Author Organization [facility] Adult Address [address] [place] [address]- Care Team Providers Care Human Services Supervisor Name Role Phone Tonja TOURE, Jeannette Olivera Primary Care Physicia n [facility] 03[facility]14[facility] - 04/13/21 [facility] [address] [place] [address]- Allergies, Adverse Reactions, Alerts Substance Reaction Severity [...] 04/08/21 7:58:00 EDT, Route to Pharmacy Electronically, [facility]/pharmacy #1234, Partial fill upon patient request if the prescription is for a schedule II opioid drug.... Start Date: 04/08/21 Status: Ordered omeprazole 20 mg oral delayed release tablet 1 tablet = 20 mg, By Mouth, Daily, # 90 tablet, 1 Refills, Maintenance, 08/23/20 13:22:00 EST, CR Tablet, [facility]/pharmacy #1234, Partial fill [...]
--- OUTSIDE RECORDS SUMMARY | 2024-03-09 07:34 | XMS_ITS | Continuity of Care Document ---
Author Organization [facility] Adult Address [address] [place] [address]- Care Team Providers Care Lithograph Printer Name Role Phone Fanny TOURE, Rhonda Primary Care Physician [facility] 10[facility]19[facility]23 - 11/18/23 [facility] [address] [place] [address]- Attending Physician: Admtr, Sam Admitting Physician: Admtr, [...] Refills, Maintenance, 06/09/23 9:12:00 EST, [facility], 170, cm, 06/03/23 14:00:00 EST, Height, 51, kg, 06/03/23 14:00:00 EST, Dry Weight Start Date: 06/09/23 Status: Ordered atorvastatin 20 mg oral tablet 1 tablet, By Mouth, Daily, # 90 tablet, 1 Refills, Maintenance, 07/29/23 9:02:00 EST, [facility], 170, cm, 06/23/23 10:13:00 EST, Height, 51, [...] Unknown, 5 Refills, Maintenance, 12/11/22 19:25:00 EDT, [facility], 90, INSTILL 2 SPRAYS INTO EACH NOSTRIL 3 TIMES A DAY NEEDED FOR CONGESTION, 1... Start Date: 12/11/22 Status: Ordered lisinopril 10 mg oral tablet 1, tablet, By Mouth, Daily, # 90 tablet, Refills 1, Maintenance, 09/07/23 9:20:00 EST, Route to Pharmacy Electronically, [facility] 7[facility], 170, cm, 07/29/23 14:04:00 EST, Height, 51, kg, 06/03/23 14:00:00 EST, Dry Weight Start Date: 09/07/23 Status: Ordered metoprolol 25 mg oral tablet 12.5 mg, 0.5, tablet, By Mouth, Every 12 hours, # 30 tablet, Refills 0, Tot. Refills 0, Maintenance, 06/04/23 13:43:00 EST, Route to Pharmacy Electronically, [facility], Partial fill upon patient request if the prescription is for a sche... 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 Start Date: 11/10/23 Stop Date: 12/08/23 Status: Ordered OxyCONTIN 20 mg oral tablet, extended release 20 mg, 1, tablet, By Mouth, Every 12 hours, assembly line worker chacked fill 11/10/23, # 56 tablet, Refills [...] Confirmed Active Tobacco use disorder Confirmed Active 13343 r lung wedge resection Procedures Procedure Date Related Diagnosis Body Site Status Arthroscopy of knee with med ial and lateral meniscectomy [address] james Social History Social History Type Response Smoking Status Former smoker, quit more than 30 days ago; Total pack years: 45; entered on: 09/17/23 Sex EKG study * Event Display: EKG Authored Date: Radiology * Event Display: MRI Knee, Non- BH Authored Date: Patient Care team information Care Team Personnel Name: Aurelia Yang RN Position: [facility] RN Member Role: Primary Care Nurse Name: Rhonda Escobedo NP Position: [facility] PCO Associate Professional Member Role: PCP Address: Address: [address] [place] [address], [address] [place], [place] [address] Name: Yue Delgado RN Position: S RN Member Role: Primary Care Nurse Name: Debo Gagnon Position: S RN Member Role: Primary Care Nurse Name: Lisa Awad RN Position: S RN Member Role: Primary Care Nurse Name: Elly Rodriges RN Position: [facility] RN Member Role: Primary Care Nurse Name: Nilda Pop RN Position: S RN Member Role: Primary Care Nurse Care Team Related Persons Name: JADON CHARLINE Address: [place] [address] Name: ELDER ANDERSON Address: home [address] [facility] [address] [facility] [facility] [address] [place] [address] Name: MAEGAN ANDERSON Address: home [address] [address]
--- OUTSIDE RECORDS SUMMARY | 2024-03-09 07:34 | XMS_ITS | Continuity of Care Document ---
Author Organization [facility] Adult Address [address] [place] [address]- Care Team Providers Care Industrial Furnace Fabricator Name Role Phone Fanny TOURE, Rhonda Primary Care Physician [facility] 10[facility]23 - 11/07/23 [facility] Adult [address] [place] [address]- Allergies, Adverse Reactions, Alerts Substance Reaction Severity [...] Refills, Maintenance, 06/09/23 9:12:00 EST, [facility], 170, cm, 06/03/23 14:00:00 EST, Height, 51, kg, 06/03/23 14:00:00 EST, Dry Weight Start Date: 06/09/23 Status: Ordered atorvastatin 20 mg oral tablet 1 tablet, By Mouth, Daily, # 90 tablet, 1 Refills, Maintenance, 07/29/23 9:02:00 EST, [facility], 170, cm, 06/23/23 10:13:00 EST, Height, 51, [...] EST, Route to Pharmacy Electronically, [facility], Partial fill uponpatient request [...] Unknown, 5 Refills, Maintenance, 12/11/22 19:25:00 EDT, [facility], 90, INSTILL 2 SPRAYS INTO EACH NOSTRIL 3 TIMES A DAY NEEDED FOR CONGESTION, 1... Start Date: 12/11/22 Status: Ordered lisinopril 10 mg oral tablet 1, tablet, By Mouth, Daily, # 90 tablet, Refills 1, Maintenance, 09/07/23 9:20:00 EST, Route to Pharmacy Electronically, [facility] 16263, 170, cm, 07/29/23 14:04:00 EST, Height, 51, [...] 14:23:00 EST, [facility] STORE 25289, 28, APPLY 1 PATCH TOPICALLY DAILY, 170, cm, 06/23/23 10:13:00 EST, Height, 51, kg, 06/03/23 14:00:00 EST, Dry Weight Start Date: 07/27/23 Status: Ordered oxyCODONE 10 mg oral tablet 1 tablet = 10 mg, By Mouth, Every 6 hours, PRN as needed for pain, drum sander setter assessed fill 10/13/23, # 112tablet, 0 Refills, Maintenance, 10/12/23 17:07:00 EDT, Tablet, [facility]/pharmacy #[id number], Partial fill upon patient request if the prescription is for a sched... Start Date: 10/12/23 Stop Date: 11/09/23 Status: Ordered OxyCONTIN 20 mg oral tablet, extended release 20 mg, 1, tablet, By Mouth, Every 12 hours, drum sander setter chacked fill 10/13/23, # 56 tablet, Refills 0, Tot. Refills 0, Maintenance, 10/12/23 17:07:00 EDT, Route to Pharmacy Electronically, [facility]/pharmacy #[id number],Partial fill upon patient [...] Confirmed Active Tobacco use disorder Confirmed Active 85028 r lung wedge resection Social History Social [...] Associate Professional Member Role: PCP Address: Address: [address] [place] [address], 3rd [address] [place], [place] [address] Name: Yue Delgado RN Position: S RN Member Role: Primary Care Nurse Name: Debo Gagnon Position: S RN Member Role: Primary Care Nurse Name: Lisa Awad RN Position: S RN Member Role: Primary Care Nurse Name: Elly Rodriges RN Position: [facility] SN RN Member Role: Primary Care Nurse Name: Nilda Pop RN Position: S RN Member Role: Primary Care Nurse Care Team Related Persons Name: CHARLINE DIOP Address: [place] [address] Name: ELDER ANDERSON Address: home [address] [place] [address] Name: MAEGAN ANDERSON Address: home [address] [place] [address]
--- OUTSIDE RECORDS SUMMARY | 2024-03-09 07:34 | XMS_ITS | Continuity of Care Document ---
Author Organization [facility] Adult Address [address] [place] [address]- Care Team Providers Care Audio Video Repairer Name Role Phone Fanny TOURE, Rhonda Primary Care Physician [facility]): 11/10/23 - 12/10/23 [facility] Adult [address] [place] [address]- Allergies, Adverse Reactions, Alerts Substance Reaction Severity [...] Refills, Maintenance, 06/09/23 9:12:00 EST, [facility], 170, cm, 06/03/23 14:00:00 EST, Height, 51, kg, 06/03/23 14:00:00 EST, Dry Weight Start Date: 06/09/23 Status: Ordered atorvastatin 20 mg oral tablet 1 tablet, By Mouth, Daily, # 90 tablet, 1 Refills, Maintenance, 07/29/23 9:02:00 EST, [facility], 170, cm, 06/23/23 10:13:00 EST, Height, 51, kg, 06/03/23 14:00:00 EST, Dry Weight Start Date: 07/29/23 Status: Ordered celecoxib 200 mg oral capsule 1 capsule = 200 mg, By Mouth, 2 times a day, # 14 capsule, 0 Refills, Maintenance, 06/04/23 13:40:00 EST, Capsule, [facility], Partial fill upon patient [...] 06/04/23 13:40:00 EST, Route to Pharmacy Electronically, [facility], Partial fill uponpatient request if the [...] Unknown, 5 Refills, Maintenance, 12/11/22 19:25:00 EDT, [facility] 45630, 90, INSTILL 2 SPRAYS INTO EACH NOSTRIL 3 TIMES A DAY NEEDED FOR CONGESTION, 1... Start Date: 12/11/22 Status: Ordered lisinopril 10 mg oral tablet 1, tablet, By Mouth, Daily, # 90 tablet, Refills 1, Maintenance, 09/07/23 9:20:00 EST, Route to Pharmacy Electronically, [facility] 25762, 170, cm, 07/29/23 14:04:00 EST, Height, 51, kg, 06/03/23 14:00:00 EST, Dry Weight Start Date: 09/07/23 Status: Ordered metoprolol 25 mg oral tablet 12.5 mg, 0.5, tablet, By Mouth, Every 12 hours, # 30 tablet, Refills 0, Tot. Refills 0, Maintenance, 06/04/23 13:43:00 EST, Route to Pharmacy Electronically, [facility], Partial fill upon patient request if the prescription is for a sche... Start Date: 06/04/23 Stop Date: 07/04/23 Status: Ordered nicotine 14 mg/24 hr transdermal film, extended release 1 patch, Topically, Daily, # 28 patch, 0 Refills, Maintenance, 07/27/23 14:23:00 EST, [facility] STORE 20753, 28, APPLY 1 PATCH TOPICALLY DAILY, 170, cm, 06/23/23 10:13:00 EST, Height, 51, kg, 06/03/23 14:00:00 EST, Dry Weight Start Date: 07/27/23 Status: Ordered oxyCODONE 10 mg oral tablet 1 tablet = 10 mg, By Mouth, Every 6 hours, PRN as needed for pain, video arcade manager assessed fill 12/08/23, # 112tablet, 0 Refills, Maintenance, 12/07/23 12:05:00 EDT, Tablet, [facility]/pharmacy #[id number], Partial fill upon patient request if the prescription is for a sched... Start Date: 12/07/23 Stop Date: 01/04/24 Status: Ordered OxyCONTIN 20 mg oral tablet, extended release 20 mg, 1, tablet, By Mouth, Every 12 hours, video arcade manager chacked fill 12/08/23, # 56 tablet, Refills 0, Tot. Refills 0, Maintenance, 12/07/23 12:05:00 EDT, Route to Pharmacy Electronically, [facility]/pharmacy #[id number],Partial fill upon patient request if [...] Confirmed Active Tobacco use disorder Confirmed Active 28902 r lung wedge resection Social History Social [...] Professional Member Role: PCP Address: Address: [address] [place] [address], 3rd [address] [place], [place] [address] Name: Yue Delgado RN Position: [facility] RN Member Role: [...] Persons Name: CHARLINE DIOP Address: [place] [address] Name: ELDER ANDERSON Address: home [address] [place] [address] Name: MAEGAN ANDERSON Address: home [address] [place] [address]
--- OUTSIDE RECORDS SUMMARY | 2024-03-09 07:34 | XMS_ITS | Continuity of Care Document ---
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) - 12/05/21 DJD (degenerative joint disease) of cervical spine(Discharge Diagnosis) - 12/05/21 Attending Physician: Rhonda Escobedo NP Allergies, Adverse [...] FOR WHEEZING, # 8.5 each, 5 Refills, [facility] 45737, 17, INHALE 2 PUFFS EVERY 4 HOURS NEEDED FOR WHEEZING, 170, cm, 11/15/21 11:23:00 EDT, Height, 50, kg, 11/15/21 11:23:00 EDT, Dry Weight Start Date: 11/17/21 Status: Ordered amLODIPine 5 mg oral tablet 1 tablet, By Mouth, Daily, # 90 tablet, 0 Refills, [facility], 170, cm, 11/15/21 11:23:00 EDT,Height, 50, kg, [...] 0 Refills, Maintenance, 10/02/21 13:05:00 EDT, Suppository, [facility]/pharmacy #[id number], Partial fill upon patient request if the prescription is for a schedule II opioid drug., 170, cm, 10/02/21 10:36:00 EDT... Start Date: 10/02/21 Stop Date: 10/16/21 Status: Ordered lisinopril 40 mg oral tablet 1 tablet = 40 mg, By Mouth, Daily, # 30 tablet, 5 Refills, Maintenance, 11/17/21 19:20:00 EDT, Tablet, [facility]/pharmacy #1234, Partial [...] 0 Refills, Maintenance, 11/18/21 8:27:00 EDT, Tablet, [facility]/pharmacy #1234, Partial fill upon patient request if the prescription is for a schedule II opioid drug. M... Start Date: 11/18/21 Stop Date: 12/18/21 Status: Ordered OxyCONTIN 10 mg oral tablet, extended release 10 mg, 1, tablet, By Mouth, Every 12 hours, # 14 tablet, Refills 0, Tot. Refills 0, Maintenance, 11/29/21 12:42:00 EDT, Route to Pharmacy Electronically, [facility]/pharmacy #[id number], in addition to his IR oxycodone, [...] Lumbar disc herniation with radiculopathy Discharge Diagnosis 12/05/21 DJD (degenerative joint disease) of cervical spine Discharge Diagnosis 12/05/21 Vital Signs Most recent to oldest [Reference Range]: 1 2 Height 170 cm (12/05/21 10:11 AM) 170 cm (11/29/21 11:18 AM) Weight 57.4 kg (12/05/21 10:11 AM) 57.4 kg (11/29/21 11:18 AM) Oxygen Saturation [94-100 %] 98 % (11/29/21 11:18 AM) Pulse Rate [55-90 bpm] 57 bpm (11/29/21 11:18 AM) Body Mass Index [18.5-24.99] 19.86 (11/29/21 11:18 AM) Blood Pressure [90-138/55-84 mm Hg] 138/ 62mm Hg (11/29/21 11:18 AM) Temperature [96.8-100.4 DegF] 98.3 DegF (11/29/21 11:18 AM) Blood pressure sites Arm, left (11/29/21 11:18 AM) Temperature Route Oral (11/29/21 11:18 AM) Weight Obtained Via Standing scale (11/29/21 11:18 AM) Social History Social History Type Response Tobacco Other: Smokes about 12 cigarettes daily. Prior to this, smoking about 1 PPD for 35 years.. Sex
--- OUTSIDE RECORDS SUMMARY | 2024-03-09 07:34 | XMS_ITS | Continuity of Care Document ---
Author Organization [facility] Address Unknown Care Team Providers Care Public Weigher Name Role Phone Tonja TOURE, Jeannette Olivera Primary Care Physicia n [facility] 08/28/21 - 09/04/21 [facility] Attending Physician: Garrison Pepper [...] 5 Refills, Maintenance, 06/19/21 8:09:00 EST, Tablet, [facility]/pharmacy #1234, Partial fill [...] 09/13/21 9:48:00 EST, 08/30/21 9:48:00 EST, Cream, [facility]/pharmacy #1234, Partial fill upon patient request if the prescription is for a schedule II opioid dr... Start Date: 08/30/21 Stop Date: 09/13/21 Status: Ordered lisinopril 40 mg oral tablet 1 tablet = 40 mg, By Mouth, Daily, # 30 tablet, 5 Refills, Maintenance, 07/03/21 10:04:00 EST, Tablet, [facility]/pharmacy #1234, Partial fill [...]
--- OUTSIDE RECORDS SUMMARY | 2024-03-09 07:34 | XMS_ITS | Continuity of Care Document ---
Author Organization [facility] Adult Address [address] [place] [address]- Care Team Providers Care Power Transformer Inspector Name Role Phone Fanny TOURE, Rhonda Primary Care Physician [phone] [facility]): 07/16/23 - 08/15/23 [facility] Adult [address] [place] [address]- Allergies, Adverse Reactions, Alerts Substance Reaction Severity [...] Refills, Maintenance, 05/18/23 13:33:00 EDT, [facility], 25, INHALE 1 PUFF 4 TIMES A DAY NEEDED FOR COUGH, 170, cm, 05/05/23 12:54:00 EDT, Height, 50, kg, 11/15/21 11:2... Start Date: 05/18/23 Status: Ordered amLODIPine 5 mg oral tablet 1 tablet, By Mouth, Daily, # 90 tablet, 1 Refills, Maintenance, 06/09/23 9:12:00 EST, [facility], 170, cm, 06/03/23 14:00:00 EST, Height, 51, kg, 06/03/23 14:00:00 EST, Dry Weight Start Date: 06/09/23 Status: Ordered atorvastatin 20 mg oral tablet 1 tablet, By Mouth, Daily, # 90 tablet, 1 Refills, Maintenance, 07/29/23 9:02:00 EST, [facility], 170, cm, 06/23/23 10:13:00 EST, Height, 51, kg, 06/03/23 14:00:00 EST, Dry Weight Start Date: 07/29/23 Status: Ordered celecoxib 200 mg oral capsule 1 capsule = 200 mg, By Mouth, 2 times a day, # 14 capsule, 0 Refills, Maintenance, 06/04/23 13:40:00 EST, Capsule, [facility], Partial fill upon patient [...] 06/04/23 13:40:00 EST, Route to Pharmacy Electronically, [facility] 3, Partial fill uponpatient request if the [...] 5 Refills, Maintenance, 12/11/22 19:25:00 EDT, [facility] STORE 40502, 90, INSTILL 2 SPRAYS INTO EACH NOSTRIL 3 TIMES A DAY NEEDED FOR CONGESTION, 1... Start Date: 12/11/22 Status: Ordered metoprolol 25 mg oral tablet 12.5 mg, 0.5, tablet, By Mouth, Every 12 hours, # 30 tablet, Refills 0, Tot. Refills 0, Maintenance, 06/04/23 13:43:00 EST, Route to Pharmacy Electronically, [facility], Partial fill upon patient request if the prescription is for a sche... Start Date: 06/04/23 Stop Date: 07/04/23 Status: Ordered nicotine 14 mg/24 hr transdermal film, extended release 1 patch, Topically, Daily, # 28 patch, 0 Refills, Maintenance, 07/27/23 14:23:00 EST, [facility], 28, APPLY 1 PATCH TOPICALLY DAILY, 170, cm, 06/23/23 10:13:00 EST, Height, 51, kg, 06/03/23 14:00:00 EST, Dry Weight Start Date: 07/27/23 Status: Ordered oxyCODONE 5 mg oral tablet 10 mg, 2, tablet, By Mouth, Every 6 hours, PRN, fill on 07/21/22, # 224 tablet, Refills 0, Tot. Refills 0, Maintenance, as needed for pain, 07/18/23 10:23:00 EST, Route to Pharmacy Electronically, [facility]/pharmacy #[id number], Partial fill upon patient request if... Start Date: 07/18/23 Stop Date: 08/15/23 Status: Ordered OxyCONTIN 20 mg oral tablet, extended release 20 mg, 1, tablet, By Mouth, Every 12 hours, groutman chacked fill 07/21/23, # 56 tablet, Refills 0, Tot. Refills 0, Maintenance, 07/18/23 10:23:00 EST, Route to Pharmacy Electronically, [facility]/pharmacy #[id number], Partial fill upon patient request if [...] Confirmed Active Tobacco use disorder Confirmed Active 87074 r lung wedge resection Social History Social History Type Response Tobacco Use: 4 or less cigar ettes(less than 1/4 pack)/day in last 30 days. Other: 2-3 cig/d x 40 years; was at 0.5 pp/d. Sex Patient Care team information Care Team Personnel Name: Aurelia Yang RN Position: S RN Member Role: Primary Care Nurse Name: Rhonda Escobedo NP Position: [facility] PCO Associate Professional Member Role: PCP Address: Address: [address] [place] [address], [address] [place] [address]- Name: Yue Delgado RN Position: S RN Member Role: Primary Care Nurse Name: Debo Gagnon Position: S RN Member Role: Primary Care Nurse Name: Lsia Awad RN Position: S RN Member Role: Primary Care Nurse Name: Elly Rodriges RN Position: [facility] SN RN Member Role: Primary Care Nurse Name: Nilda Pop RN Position: S RN Member Role: Primary Care Nurse Care Team Related Persons Name: CHARLINE DIOP Address: [place] [address] Name: ELDER ANDERSON Address: home [address] [place] [address] Name: MAEGAN ANDERSON Address: home [address] [place] [address]
--- OUTSIDE RECORDS SUMMARY | 2024-03-09 07:35 | XMS_ITS | Continuity of Care Document ---
Author Organization [facility] Adult Address [address] [place] [address]- Care Team Providers Care Manager Client Support Name Role Phone Fanny TOURE, Rhonda Primary Care Physician [phone] [facility] 07/31/23 - 08/30/23 [facility] Adult [address] [place] [address]- Allergies, Adverse Reactions, Alerts Substance Reaction Severity [...] Refills, Maintenance, 05/18/23 13:33:00 EDT, [facility], 25, INHALE 1 PUFF 4 TIMES A DAY NEEDED FOR COUGH, 170, cm, 05/05/23 12:54:00 EDT, Height, 50, kg, 11/15/21 11:2... Start Date: 05/18/23 Status: Ordered amLODIPine 5 mg oral tablet 1 tablet, By Mouth, Daily, # 90 tablet, 1 Refills, Maintenance, 06/09/23 9:12:00 EST, [facility], 170, cm, 06/03/23 14:00:00 EST, Height, 51, kg, 06/03/23 14:00:00 EST, Dry Weight Start Date: 06/09/23 Status: Ordered atorvastatin 20 mg oral tablet 1 tablet, By Mouth, Daily, # 90 tablet, 1 Refills, Maintenance, 07/29/23 9:02:00 EST, [facility], 170, cm, 06/23/23 10:13:00 EST, Height, 51, [...] Route to Pharmacy Electronically, [facility] 3, Partial fill uponpatient request if the [...] Unknown, 5 Refills, Maintenance, 12/11/22 19:25:00 EDT, [facility] STORE 32735, 90, INSTILL 2 SPRAYS INTO EACH NOSTRIL [...] Refills, Maintenance, 07/27/23 14:23:00 EST, [facility], 28, APPLY 1 PATCH TOPICALLY DAILY, 170, cm, 06/23/23 10:13:00 EST, Height, 51, kg, 06/03/23 14:00:00 EST, Dry Weight Start Date: 07/27/23 Status: Ordered oxyCODONE 5 mg oral tablet 10 mg, 2, tablet, By Mouth, Every 6 hours, PRN, fill on 08/18/23, # 224 tablet, Refills 0, Tot. Refills 0, Maintenance, as needed for pain, 08/18/23 9:46:00 EST, Route to Pharmacy Electronically, [facility]/pharmacy #[id number], Partial fill upon patient request if... Start Date: 08/18/23 Stop Date: 09/15/23 Status: Ordered OxyCONTIN 20 mg oral tablet, extended release 20 mg, 1, tablet, By Mouth, Every 12 hours, raker buffing wheel chacked fill 08/18/23, # 56 tablet, Refills 0, Tot. Refills 0, Maintenance, 08/18/23 9:46:00 EST, Route to Pharmacy Electronically, [facility]/pharmacy #[id number], Partial fill upon [...] Confirmed Active Tobacco use disorder Confirmed Active 08676 r lung wedge resection Social History Social History Type Response Tobacco Use: 4 or less cigar ettes(less than 1/4 pack)/day in last 30 days. Other: 2-3 cig/d x 40 years; was at 0.5 pp/d. Sex Patient Care team information Care Team Personnel Name: Aurelia Yang RN Position: S RN Member Role: Primary Care Nurse Name: Rhonda Escobedo NP Position: [facility] PCO Associate Professional Member Role: PCP Address: Address: [address] [place] [address], 3rd [place] [address]- Name: Yue Delgado RN Position: S RN Member Role: Primary Care Nurse Name: Debo Gagnon Position: S RN Member Role: Primary Care Nurse Name: Lisa Awad RN Position: S RN Member Role: Primary Care Nurse Name: Elly Rodriges RN Position: [facility] SN RN Member Role: Primary Care Nurse Name: Nilda Pop RN Position: S RN Member Role: Primary Care Nurse Care Team Related Persons Name: CHARLINE DIOP Address: [place] [address] Name: ELDER ANDERSON Address: home [address] [place] [address] Name: MAEGAN ANDERSON Address: home [address] [place] [address]
--- OUTSIDE RECORDS SUMMARY | 2024-03-09 07:35 | XMS_ITS | Continuity of Care Document ---
Author Organization [facility] Adult Address [address] [place] [address]- Care Team Providers Care Adz Worker Name Role Phone Fanny TOURE, Rhonda Primary Care Physician [facility] 03/07/22 - 04/06/22 [facility] Adult [address] [place] [address]- Allergies, Adverse Reactions, Alerts Substance Reaction Severity [...] 8.5 each, 5 Refills, 02/05/22 13:07:00 EDT, [facility]/pharmacy #1234, 17, 2 puffs Inhalation Every [...] 1 Refills, Maintenance, 09/24/21 13:25:00 EST, Cream, [facility]/pharmacy #1234, Partial fill upon patient request if the prescription is for a schedule II opioid drug., 1 application Rectally 2 times a day, 1... Start Date: 09/24/21 Status: Ordered Anusol-HC 2.5% cream with applicator 1 application, Rectally, 2 times a day, # 30 Gm, 1 Refills, Maintenance, 06/27/21 14:24:00 EST, Cream, [facility]/pharmacy #1234, Partial fill upon patient request if the prescription is for a schedule II opioid drug., 1 application Rectally 2 times a day, 1... Start Date: 06/27/21 Status: Ordered atorvastatin 20 mg oral tablet 1 tablet = 20 mg, By Mouth, Daily, # 30 tablet, 5 Refills, Maintenance, 11/17/21 19:20:00 EDT, Tablet, [facility]/pharmacy #1234, Partial fill upon patient request if the prescription is for a schedule II opioid drug., 170, cm, 11/15/21 11:23:00 EDT, Height,... Start Date: 11/17/21 Status: Ordered atorvastatin 20 mg oral tablet See Instructions, TAKE 1 TABLET BY MOUTH EVERY DAY, # 90 tablet, 1 Refills, [facility] STORE 32448, 170, cm, 12/17/21 8:41:00 EDT, Height, 50, [...] 2 Refills, Maintenance, 09/24/21 11:18:00 EST, Cream, [facility]/pharmacy #1234, Partial fill upon patient request if the prescription is for a schedule II opioid drug., 1 application Topically 3 times a day,... Start Date: 09/24/21 Status: Ordered hydrocortisone topical 25 mg suppository 1 supp = 25 mg, Rectally, 2 times a day, # 28 supp, 0 Refills, Maintenance, 10/02/21 13:05:00 EDT, Suppository, [facility]/pharmacy #1234, Partial fill upon patient request if the prescription is for a schedule II opioid drug., 170, cm, 10/02/21 10:36:00 EDT... Start Date: 10/02/21 Stop Date: 10/16/21 Status: Ordered ipratropium nasal 21 mcg/inh spray See Instructions, INSTILL 2 SPRAYS INTO EACH NOSTRIL 3 TIMES A DAY NEEDED FOR CONGESTION, # 30 Unknown, 3 Refills, [facility] STORE 01696, 30, INSTILL 2 SPRAYS INTO EACH NOSTRIL 3 TIMES A DAY NEEDED FOR CONGESTION, 170, cm, 12/31/21 8:21:00 EDT, Height... Start Date: 03/03/22 Status: Ordered lisinopril 10 mg oral tablet 1, tablet, By Mouth, Daily, # 90 tablet, Refills 1, Tot. Refills 1, Maintenance, 02/16/22 16:25:00 EDT, [facility], [facility], cm, 12/31/21 8:21:00 EDT, Height, 50, kg, 11/15/21 11:23:00 EDT, Dry Weight Start Date: 02/16/22 Status: Ordered Nicotrol Inhaler 10 mg inhalation device See Instructions, USE 6 CARTRIDGES PER DAY, # 168 Unknown, 0 Refills, Maintenance, 02/03/22 9:21:00EDT, [facility]/pharmacy #1234, 28, USE 6 CARTRIDGES PER DAY, 170, cm, 12/31/21 8:21:00 EDT, Height, 50, kg, 11/15/21 11:23:00 EDT, Dry Weight Start Date: 02/03/22 Status: Ordered oxyCODONE 10 mg oral tablet 1 tablet = 10 mg, By Mouth, Every 6 hours, PRN as needed for severe pain, fill on 04/04/22, # 112 tablet, 0 Refills, Maintenance, 04/03/22 18:13:00 EDT, Tablet, [facility]/pharmacy #1234, Partial fill upon patient request if the prescription is for a schedule... Start Date: 04/03/22 Stop Date: 05/01/22 Status: Ordered OxyCONTIN 10 mg oral tablet, extended release 10 mg, 1, tablet, By Mouth, Every 12 hours, fill on 04/04/22, # 56 tablet, Refills 0, Tot. Refills 0, Maintenance, 04/03/22 18:13:00 EDT, [facility] in addition to his [...] Team Personnel Name: Rhonda Escobedo NP Address: [address] [place] [address], 3rd [address] [place], [place] [address]
--- OUTSIDE RECORDS SUMMARY | 2024-03-09 07:35 | XMS_ITS | Continuity of Care Document ---
Author Organization [facility] Address Unknown Care Team Providers Care Silo Painter Name Role Phone Tonja TOURE, Jeannette Olivera Primary Care Physicia n Encounter [facility] Date(s): 06/05/21 - 07/05/21 [facility] Attending Physician: Sam Carter Admitting Physician: Sam Carter Referring Physician: trSam Allergies, Adverse Reactions, Alerts Substance Reaction Severity [...] Refills, Maintenance, 06/27/21 14:24:00 EST, Cream, [facility]/pharmacy #[id number], Partial fill upon patient request if the prescription is for a schedule II opioid drug., 1 application Rectally 2 times a day, 1... Start Date: 06/27/21 Status: Ordered Anusol-HC 2.5% cream with applicator 1 application, Rectally, 2 times a day, # 30 Gm, 1 Refills, Maintenance, 06/27/21 14:24:00 EST, Cream, [facility]/pharmacy #[id number], Partial fill upon patient request if the prescription is for a schedule II opioid drug., 1 application Rectally 2 times a day, 1... Start Date: 06/27/21 Status: Ordered atorvastatin 20 mg oral tablet 1 tablet = 20 mg, By Mouth, Daily, # 30 tablet, 5 Refills, Maintenance, 06/19/21 8:09:00 EST, Tablet, [facility]/pharmacy #[id number], Partial fill upon patient request if [...] Refills, Maintenance, 07/03/21 10:04:00 EST, Tablet, [facility]/pharmacy #[id number], Partial fill upon patient request if [...]
== END 2024-03-07 11:22 | disposition home or self-care (01) ==
PROVIDERS: Nurse Practitioner; PCP Nurse Practitioner Adult Health; Visit Provider Orthopaedic Surgery
PROC: (CPT 29805; principal; 2024-03-07 07:30)
DX: M75.41 Impingement syndrome of right shoulder (principal); M19.011 Primary osteoarthritis, right shoulder; M75.101 Unspecified rotator cuff tear or rupture of right shoulder, not specified as traumatic; I10 Essential (primary) hypertension
CPT/HCPCS: 29824; 29826; 29827; 36415; 80048; 85027; 93005; 94640; C1713; J0131; J0171; J0690; J0696; J1100; J2250; J2371; J2405; J2704; J2795; J3010

== ENCOUNTER → 2024-03-07 06:05 | Outpatient (BNV) | payer OTHER, SELFPAY | PROVIDERS: PCP Nurse Practitioner Adult Health; Visit Provider Orthopaedic Surgery | DX: M75.41 Impingement syndrome of right shoulder (principal); M19.011 Primary osteoarthritis, right shoulder; M75.121 Complete rotator cuff tear or rupture of right shoulder, not specified as traumatic | CPT/HCPCS: 23412; 29824 ==

== ENCOUNTER 2024-03-22 10:10 | Outpatient (AMB) | payer OTHER, SELFPAY ==
--- NOTE | 2024-03-22 10:33 | A.OFFVIS_ITS ---
Intake Visit Reasons: PO RT shoulder 03/07/24 Intake Note: Bernard a 69 year old male who presents today for a post operative visit s/p right shoulder on 03/07/24 Patient reports he is doing well. He reports mild to moderate discomfort in his right shoulder. He denies any fevers or chills. Allergies morphine Allergy (Severe, Verified 03/22/24 10:37) Hallucinations Medication List - Last Reconciled 03/22/24 by Corby Barros MD albuterol sulfate 90 mcg/actuation 2 puffs inhalation Q4H PRN amlodipine 5 mg PO DAILY cholecalciferol (vitamin D3) 50,000 units PO QWEEK clonazepam 1 mg PO TID PRN lisinopril 10 mg PO DAILY naloxone 4 mg/actuation 1 spray intranasal DAILY oxycodone 10 mg PO Q6H PRN oxycodone ER (OxyContin) 20 mg PO BID PFSH Medical History (Updated 02/29/24 @ 10:02 by Raegan Katz RN) Degenerative arthritis Hx of cancer of lung Hx: bad fall (~1984) COPD (chronic obstructive pulmonary disease) Chronic, continuous use of opioids Lung mass Knee pain Hand pain Esophageal candidiasis Fatigue Effusion, left knee Dysphagia Bone pain Polyarthritis Tobacco use disorder Opioid use disorder, severe, in sustained remission Multiple lung nodules Lumbar disc herniation with radiculopathy Low serum cortisol level Hypertension Hemorrhoid Chronic neck pain Chronic back pain Anxiety Achalasia Surgical History History of lung surgery (06/03/23) Hx of knee surgery History of back surgery H/O esophagogastroduodenoscopy H/O neck surgery Social History Are you a primary property caretaker to a significant other at home: Yes ( in wheel chair-daily 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 Franco is doing well after undergoing right shoulder rotator cuff repair surgery on 03/07/2024. Sutures were removed and Steri-Strips placed over his incisions. He was given a prescription to go to formal physical therapy for passive range of motion exercises. I will hold off on active lifting until he is 8 weeks out from surgery. He will contact me prior to his follow-up appointment in 6 weeks should any questions or concerns arise. Feel free to call me at any time should questions regarding his orthopedic management arise. Orders: Orders PT Evaluation and Treatment Today M25.511 - Pain in right shoulder Coding Level of Care Code Global (13082) Diagnoses Right shoulder pain M25.511
== END 2024-03-22 10:50 | disposition home or self-care (01) ==
PROVIDERS: PCP Nurse Practitioner Family; Visit Provider Orthopaedic Surgery
DX: M25.511 Pain in right shoulder (principal)
CPT/HCPCS: 99024

== ENCOUNTER → 2024-03-22 10:10 | Outpatient (BNVA) | payer OTHER, SELFPAY | PROVIDERS: PCP Nurse Practitioner Family; Visit Provider Orthopaedic Surgery | DX: M25.511 Pain in right shoulder (principal) | CPT/HCPCS: 99212 ==

== ENCOUNTER 2024-05-03 08:44 | Outpatient (AMB) | payer OTHER, SELFPAY ==
--- NOTE | 2024-05-03 08:56 | MHC.OFFVIS ---
Intake Visit Reasons: PO RT shoulder 03/07/24 JUWAN F/U Intake Note: Bernard is a 69 year old male who presents with complaints of mild to moderate discomfort in his right shoulder after undergoing right shoulder rotator cuff repair surgery on 03/07/2024. He denies any fevers or chills. He continues with his home stretching program. He states that he has been mowing his lawn with minimal discomfort. He does take oxycodone daily for chronic low back pain. Allergies morphine Allergy (Severe, Verified 05/03/24 08:57) Hallucinations Medication List - Last Reconciled 05/03/24 by Corby Barros MD albuterol sulfate 90 mcg/actuation 2 puffs inhalation Q4H PRN amlodipine 5 mg PO DAILY cholecalciferol (vitamin D3) 50,000 units PO QWEEK clonazepam 1 mg PO TID PRN lisinopril 10 mg PO DAILY naloxone 4 mg/actuation 1 spray intranasal DAILY oxycodone 10 mg PO Q6H PRN oxycodone ER (OxyContin) 20 mg PO BID PFSH Medical History (Updated 02/29/24 @ 10:02 by Raegan Katz RN) Degenerative arthritis Hx of cancer of lung Hx: bad fall (~1984) COPD (chronic obstructive pulmonary disease) Chronic, continuous use of opioids Lung mass Knee pain Hand pain Esophageal candidiasis Fatigue Effusion, left knee Dysphagia Bone pain Polyarthritis Tobacco use disorder Opioid use disorder, severe, in sustained remission Multiple lung nodules Lumbar disc herniation with radiculopathy Low serum cortisol level Hypertension Hemorrhoid Chronic neck pain Chronic back pain Anxiety Achalasia Surgical History History of lung surgery (06/03/23) Hx of knee surgery History of back surgery H/O esophagogastroduodenoscopy H/O neck surgery Social History Are you a primary wound care physician to a significant other at home: Yes ( 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) Do you presently have visiting nurse or other home services: Yes (DRUPAL PHP DEVELOPER 2 hours daily) Alcohol intake: former Year quit: 2014 Patient Tobacco Use Status: Current everyday Tobacco user Tobacco use type: Cigarette Cigarettes Per Day: 2 Current occupational status: disabled Physical Exam Extrem Other: Right shoulder examination shows that the surgical incisions are well healed, no erythema, almost full passive range of motion when compared to his left shoulder, minimal discomfort with resisted forward flexion, no discomfort with resisted internal or external rotation Assessment & Plan Assessment & Plan (1) Right shoulder pain: Code(s): M25.511 - Pain in right shoulder Category: Medical Plan Mr. Franco continues to do fairly well after undergoing right shoulder rotator cuff repair surgery on 03/07/2024. I discussed with the patient the fact that his discomfort should continue to improve over the next few months. The do's and don'ts of lifting were discussed at length with the patient. He will continue with his home stretching program. He will contact me prior to his follow-up appointment in 2 months should any questions or concerns arise. Feel free to call me at any time should questions regarding his orthopedic management arise. Coding Level of Care Code Global (05160) Diagnoses Right shoulder pain M25.511
== END 2024-05-03 09:22 | disposition home or self-care (01) ==
PROVIDERS: PCP Nurse Practitioner Family; Visit Provider Orthopaedic Surgery
DX: M25.511 Pain in right shoulder (principal)
CPT/HCPCS: 99024

== ENCOUNTER → 2024-05-03 08:44 | Outpatient (BNVA) | payer OTHER, SELFPAY ==
--- NOTE | 2024-05-19 15:02 | PM.ANESCN ---
History of Present Illness Consult details Consult date: 05/19/24 Narrative: This patient was referred to the anesthesia department for questions relating to his right shoulder surgery on 03/07/24. He was previously referred to the anesthesia department but was unable to reach anyone and was frustrated because he did not receive a callback for several days. I received notice of the patient's concerns on 05/18/24 and attempted to call him that same day at 1521 without answer; a voicemail was left with a guarantee that I would try again the next day. 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 He is taking chronic opioids for pain at 60 MME daily. I was the anesthesiologist who performed a right brachial plexus block on the day of surgery. Per Dr. Barros's operative note, he performed a right shoulder diagnostic arthroscopy with right shoulder arthroscopic distal clavicle excision, right shoulder arthroscopic acromioplasty, and right shoulder mini-open rotator cuff repair. I made another phone call attempt on 05/19/24 at 1428 and was able to reach the patient. He reports experiencing slight left neck discomfort with some radiation to the right side and was concerned that something went wrong with the nerve block. During the procedure, he remembers me saying that he had tough skin upon needle insertion and also remembers seeing 4 attempts with the needle because the needle was moving in and out to different areas. Since he had previous neck surgery, he was worried that the needle hit the metal plate in his neck and thus contributing to his current neck discomfort. I reassured the patient that the nerve block was performed without issue and nowhere near the metal plates in his neck; since the needle only went a few centimeters deep to the skin, I did not even visualize the metal plates on the ultrasound image. In terms of the 4 attempts of the needle, I explained that the nerve block is performed by targeting the needle to different areas in order to surround the nerve bundles and achieve adequate analgesia. It was not 4 attempts, but rather, multiple passes of the needle through the same insertion site to infiltrate local anesthetic to the appropriate areas. The patient did have good post-operative pain relief with the nerve block and reported that it wore off the morning after surgery. Since he regained baseline sensation after the nerve block wore off, I explained that his current neck discomfort may also be related to the surgery itself - certain motions that were indicated by the surgical procedure such as traction, positioning, passive range of motion testing, gentle pulling/tugging, or even the surgical repair itself may have contributed to his neck discomfort. I reassured the patient that his symptoms should improve with time. He has seen Dr. Barros in the office who also provided the same sentiment. He was appreciative of my explanations and confirmed that I have answered all his questions. [facility] Past Medical History Medical History (Updated 02/29/24 @ 10:02 by Raegan Katz RN) Degenerative arthritis Hx of cancer of lung Hx: bad fall (~1984) COPD (chronic obstructive pulmonary disease) Chronic, continuous use of opioids Lung mass Knee pain Hand pain Esophageal candidiasis Fatigue Effusion, left knee Dysphagia Bone pain Polyarthritis Tobacco use disorder Opioid use disorder, severe, in sustained remission Multiple lung nodules Lumbar disc herniation with radiculopathy Low serum cortisol level Hypertension Hemorrhoid Chronic neck pain Chronic back pain Anxiety Achalasia Surgical History Surgical History History of lung surgery (06/03/23) Hx of knee surgery History of back surgery H/O esophagogastroduodenoscopy H/O neck surgery Social History Social History Are you a primary infant childcare provider to a significant other at home: Yes ( 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) Do you presently have visiting nurse or other home services: Yes (METAL BED ASSEMBLER 2 hours daily) Alcohol intake: former Year quit: 2014 Patient Tobacco Use Status: Current everyday Tobacco user Tobacco use type: Cigarette Cigarettes Per Day: 2 Current occupational status: disabled Meds Allergies Allergy/AdvReac Type Severity Reaction Status Date / Time morphine Allergy Severe Hallucinati Verified 05/03/24 08:57 ons Home Medications ?Medication ?Instructions ?Recorded ?Confirmed ?Last Taken ?Type albuterol sulfate 90 mcg/actuation 2 puff inhalation Q4H PRN wheezing 09/12/21 05/03/24 Unknown History aerosol inhaler clonazepam 1 mg tablet 1 mg PO TID PRN Anxiety 09/12/21 05/03/24 Unknown History naloxone 4 mg/actuation nasal spray 1 spray intranasal DAILY 09/12/21 05/03/24 Unknown History amlodipine 5 mg tablet 5 mg PO DAILY 02/17/23 05/03/24 Unknown History lisinopril 10 mg tablet 10 mg PO DAILY 02/17/23 05/03/24 Unknown History cholecalciferol (vitamin D3) 1,250 50,000 unit PO QWEEK 02/26/24 05/03/24 Unknown History mcg (50,000 unit) capsule oxycodone 10 mg tablet 10 mg PO Q6H PRN pain 02/26/24 05/03/24 Unknown History oxycodone 20 mg tablet,crush 20 mg PO BID 02/26/24 05/03/24 Unknown History resistant,extended release 12 hr (OxyContin) Results Labs Labs: All other labs normal. Procedures Date of Service Date of Service: 05/19/24
== END ==
PROVIDERS: PCP Nurse Practitioner Family; Visit Provider Orthopaedic Surgery
DX: M25.511 Pain in right shoulder (principal); Z79.891 Long term (current) use of opiate analgesic
CPT/HCPCS: 99212

== ENCOUNTER 2024-07-05 08:40 | Outpatient (REF) | payer OTHER, SELFPAY | END 2024-07-05 08:41 | disposition home or self-care (01) | LOC: HO.HOSX 08:40 | PROVIDERS: PCP Nurse Practitioner Family; Visit Provider Orthopaedic Surgery | DX: M25.511 Pain in right shoulder (principal); M54.2 Cervicalgia | CPT/HCPCS: 73030; 99212 ==

== ENCOUNTER 2024-07-05 08:40 | Outpatient (AMB) | payer OTHER, SELFPAY ==
--- OUTSIDE RECORDS SUMMARY | 2024-07-05 08:48 | XMS_ITS ---
Author Name [facility] Organization Unknown History of Medication Use Medication Directions Dispensed Refills Start Date End Date [facility] lisinopril 40 mg tablet TAKE 1 TABLET BY MOUTH EVERY DAY 01/04/2023 active hydrocortisone 2.5 % topical cream APPLY TO AFFECTED AREA 3 TIMES A DAY 01/04/2023 active albuterol sulfate HFA 90 mcg/actuation aerosol inhaler INHALE 1 PUFF 4 TIMES A DAY NEEDED FOR COUGH 02/14/2023 active Kenalog 40 mg/mL suspension for injection Take 2 mL by injection route. 01/04/2023 active Nicotrol 10 mg inhalation cartridge USE 6 CARTRIDGES PER DAY 01/04/2023 completed amoxicillin 875 mg-potassium clavulanate 125 mg tablet TAKE 1 TABLET BY MOUTH EVERY 12 HOURS FOR 10 DAYS 01/04/2023 completed ipratropium bromide 21 mcg (0.03 %) nasal spray INSTILL 2 SPRAYS INTO EACH NOSTRIL 3 TIMES A DAY NEEDED FOR CONGESTION 01/04/2023 active cholecalciferol (vitamin D3) 1,250 mcg (50,000 unit) capsule TAKE 1 CAPSULE BY MOUTH ONCE EVERY 7 DAYS FOR 90 DAYS 02/14/2023 active hydrocortisone 2.5 % topical cream APPLY TO AFFECTED AREA 3 TIMES A DAY 01/04/2023 active albuterol sulfate HFA 90 mcg/actuation aerosol inhaler INHALE 1 PUFF 4 TIMES A DAY NEEDED FOR COUGH 02/14/2023 active lisinopril 10 mg tablet TAKE 1 TABLET BY MOUTH EVERY DAY 01/04/2023 active atorvastatin 20 mg tablet TAKE 1 TABLET BY MOUTH EVERY DAY 01/04/2023 active lidocaine (PF) 10 mg/mL (1 %) injection solution Take 1 mL by injection route. 01/04/2023 active OxyContin 10 mg tablet,crush resistant,extended release TAKE 1 TABLET BY MOUTH EVERY 12 HOURS 01/04/2023 active Ventolin HFA 90 mcg/actuation aerosol inhaler INHALE 1 PUFF 4 TIMES A DAY NEEDED FOR COUGH 01/04/2023 active oxycodone 5 mg tablet TAKE 2 TABLET BY MOUTH EVERY 6 HOURS,X28 DAYS NEEDED FOR PAIN 01/04/2023 active amlodipine 5 mg tablet TAKE 1 TABLET BY MOUTH EVERY DAY 01/04/2023 active oxycodone 10 mg tablet TAKE 1 TABLET BY MOUTH EVERY 6 HOURS,X28 DAYS NEEDED FOR SEVERE PAIN FILL 11/13/22 01/04/2023 active clonazepam 1 mg tablet TAKE 1 TABLET BY MOUTH THREE TIMES A DAY 01/04/2023 active gabapentin 600 mg tablet TAKE 1 TABLET BY MOUTH TWICE A DAY 01/04/2023 active Allergies Allergen Reaction Severity Comment Documented Date Source Statu s MORPHINE [facility] Problems Problem Status Onset Date Problem Type Date of Resoluti on Source Arthritis of left knee active 2023-02-11 ProblemAct [facility] Osteoarthritis of left knee joint active 2022-11-03 ProblemAct [facility]
--- NOTE | 2024-07-05 08:54 | MHC.OFFVIS ---
Vital Signs 07/05/24 08:57 Height 5 ft 7 in Weight 120 lb BMI 18.8 Intake Visit Reasons: Neck pain and right shoulder pain Intake Note: Bernard is a 69 year old male who presents with complaints of progressively worsening neck pain which radiates down his right arm to his right hand. He did undergo right shoulder rotator cuff repair surgery on 03/07/2024. He reports mild intermittent discomfort in his right shoulder. The patient states that he did undergo cervical spine surgery by Dr. Arce approximately 20 years ago. His neck pain has gotten worse over the last few years in spite of continued non operative treatments. He has failed the last 6 weeks of conservative treatment which has included Tylenol, anti-inflammatory medicines, topical creams and physical therapy exercises. At this point the patient's neck pain is interfering with his activities of daily living and his ability to sleep well through the night. Allergies morphine Allergy (Severe, Verified 07/05/24 08:54) Hallucinations Medication List - Last Reconciled 07/05/24 by Corby Barros MD albuterol sulfate 90 mcg/actuation 2 puffs inhalation Q4H PRN amlodipine 5 mg PO DAILY cholecalciferol (vitamin D3) 50,000 units PO QWEEK clonazepam 1 mg PO TID PRN lisinopril 10 mg PO DAILY naloxone 4 mg/actuation 1 spray intranasal DAILY oxycodone 10 mg PO Q6H PRN oxycodone ER (OxyContin) 20 mg PO BID PFSH Medical History (Updated 07/05/24 @ 09:20 by Corby Barros MD) Degenerative arthritis Hx of cancer of lung Hx: bad fall (~1984) COPD (chronic obstructive pulmonary disease) Chronic, continuous use of opioids Lung mass Knee pain Hand pain Esophageal candidiasis Fatigue Effusion, left knee Dysphagia Bone pain Polyarthritis Tobacco use disorder Opioid use disorder, severe, in sustained remission Multiple lung nodules Lumbar disc herniation with radiculopathy Low serum cortisol level Hypertension Hemorrhoid Chronic neck pain Chronic back pain Anxiety Achalasia Surgical History History of lung surgery (06/03/23) Hx of knee surgery History of back surgery H/O esophagogastroduodenoscopy H/O neck surgery Social History Are you a primary behavioral health care coordinator to a significant other at home: Yes ( 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) Do you presently have visiting nurse or other home services: Yes (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 2 hours daily) Alcohol intake: former Year quit: 2014 Patient Tobacco Use Status: Current everyday Tobacco user Tobacco use type: Cigarette Cigarettes Per Day: 2 Current occupational status: disabled Physical Exam Vital Signs: BMI result Body Mass Index 18.8 Const Other: Well-nourished well-developed very friendly male awake alert and oriented x3 in no acute distress Neck Other: Cervical spine examination shows pain with range of motion, right-sided paraspinal muscle tenderness, positive Spurling's test, 4/5 strength with testing of his right biceps and wrist extensors when compared to 5/5 strength on his left side Extrem Other: Right shoulder examination shows that the surgical incisions are well healed, no erythema, almost full range of motion when compared to his left shoulder, 4+ out of 5 strength with supraspinatus testing, no instability Results Reviewed Results Reviewed: X-rays of the patient's right shoulder taken today show bony changes consistent with distal clavicle excision and acromioplasty, 1 suture anchor within the proximal humerus with no signs of loosening Assessment & Plan Assessment & Plan (1) Right shoulder pain: Code(s): M25.511 - Pain in right shoulder Category: Medical (2) Neck pain on right side: Code(s): M54.2 - Cervicalgia Category: Medical Plan Mr. Franco presents with progressively worsening neck pain which radiates down his right arm to his right hand as well as right arm right extremity weakness most likely due to cervical stenosis versus a disc herniation. Thus, I will send the patient for an MRI of his cervical spine for further evaluation. I will contact him by phone once the MRI results are available. Will call me prior to that time should his symptoms worsen in any way. Feel free to call me at any time should questions regarding his orthopedic management arise. I spent 21 minutes in reviewing the patient's records and imaging studies, seeing the patient and documenting in the medical record. Orders: Orders XR shoulder RT min 2V Today M25.511 - Pain in right shoulder MR cervical spine wo con Today M54.2 - Cervicalgia Coding Level of Care Code Est Pt Level 3 (33848) Complex EM visit Add On G2211 Diagnoses Right shoulder pain M25.511 Neck pain on right side M54.2
[2024-07-05 08:57] VITALS: BMI 18.8
== END 2024-07-05 09:24 | disposition home or self-care (01) ==
PROVIDERS: PCP Nurse Practitioner Family; Visit Provider Orthopaedic Surgery
DX: M25.511 Pain in right shoulder (principal); M54.2 Cervicalgia
CPT/HCPCS: 99213; G2211

== ENCOUNTER 2024-11-24 09:30 | Outpatient (AMB) | payer OTHER, SELFPAY ==
--- NOTE | 2024-11-24 09:31 | MHC.OFFVIS ---
Intake Visit Reasons: TH- MRI review of cervical spine Intake Note: Bernard is a 69 year old male who presents with complaints of progressively worsening neck pain which radiates down his right arm to his right hand. He did undergo right shoulder rotator cuff repair surgery on 03/07/2024. He reports mild intermittent discomfort in his right shoulder. The patient states that he did undergo cervical spine surgery by Dr. Arce approximately 20 years ago. His neck pain has gotten worse over the last few years in spite of continued non operative treatments. He has failed the last 6 weeks of conservative treatment which has included Tylenol, anti-inflammatory medicines, topical creams and physical therapy exercises. At this point the patient's neck pain is interfering with his activities of daily living and his ability to sleep well through the night. Allergies morphine Allergy (Severe, Verified 11/24/24 09:31) Hallucinations Medication List - Last Reconciled 11/24/24 by Corby Barros MD albuterol sulfate 90 mcg/actuation 2 puffs inhalation Q4H PRN amlodipine 5 mg PO DAILY atorvastatin 20 mg PO DAILY cholecalciferol (vitamin D3) 50,000 units PO QWEEK clonazepam 1 mg PO TID PRN lisinopril 10 mg PO DAILY naloxone 4 mg/actuation 1 spray intranasal DAILY pregabalin 75 mg PO DAILY PFSH Medical History (Updated 11/24/24 @ 09:41 by Corby Barros MD) Degenerative arthritis Hx of cancer of lung Hx: bad fall (~1984) COPD (chronic obstructive pulmonary disease) Chronic, continuous use of opioids Lung mass Knee pain Hand pain Esophageal candidiasis Fatigue Effusion, left knee Dysphagia Bone pain Polyarthritis Tobacco use disorder Opioid use disorder, severe, in sustained remission Multiple lung nodules Lumbar disc herniation with radiculopathy Low serum cortisol level Hypertension Hemorrhoid Chronic neck pain Chronic back pain Anxiety Achalasia Surgical History History of lung surgery (06/03/23) Hx of knee surgery History of back surgery H/O esophagogastroduodenoscopy H/O neck surgery Social History Are you a primary palliative care physician to a significant other at home: Yes ( in wheel chair-daily STEWARD/STEWARDESS) Do you presently have visiting nurse or other home services: Yes (STEWARD/STEWARDESS 2 hours daily) Alcohol intake: former Year quit: 2014 Patient Tobacco Use Status: Current everyday Tobacco user Tobacco use type: Cigarette Cigarettes Per Day: 2 Current occupational status: disabled Physical Exam Const Other: Tele health appointment so no physical exam today Telehealth Telehealth Telehealth Platform: Telephone Location of provider rendering services: practice address Location of patient: address on file Patient Identification confirmed using: Name, : Yes Telehealth method: voice only Patient verbally consented to treatment: Yes Patient verbally consented to billing insurance company: Yes Patient informed of any privacy concerns related to visit: Yes Minutes spent on Phone/Video with Pt.: 14 Results Reviewed Results Reviewed: MRI of the patient's cervical spine performed at [facility] imaging shows moderate to severe bilateral C3-C4 foraminal narrowing? Assessment & Plan Assessment & Plan (1) Cervical stenosis of spinal canal: Code(s): M48.02 - Spinal stenosis, cervical region Category: Medical Plan Mr. Franco presents with progressively worsening neck pain due to cervical stenosis. Thus, I will arrange for the patient to have an evaluation in our neurosurgery department. He will contact me prior to that appointment should his symptoms worsen in any way. Feel free to call me at any time should questions regarding his orthopedic management arise. Orders: Referrals Neuro Spine Referral M48.02 - Spinal stenosis, cervical region Coding Level of Care Code Tele Est Pt Level 2 (40362) Complex EM visit Add On G2211 Diagnoses Cervical stenosis of spinal canal M48.02
--- OUTSIDE RECORDS SUMMARY | 2024-11-24 10:12 | XMS_ITS | Clinical Summary ---
Author Organization [facility] Address [address] [place] [id number] Care Team Providers Care Transport Analyst Name Role Phone Rhonda Escobedo NP Primary Care Provider [phone] Allergies Active Allergy Reactions Criticality Noted Date Comments Morphine 04/29/2022 Medications Medication Sig Dispensed Refills Start Date End Date Status albuterol 108 (90 Base) MCG/ACT inhaler TAKE 2 PUFFS BY MOUTH EVERY 4 HOURS NEEDED FOR WHEEZING 0 04/20/2022 Active amLODIPine (NORVASC) tablet 5 mg Take 5 mg by mouth daily. 0 03/25/2022 Active atorvastatin (LIPITOR) tablet 20 mg Take 20 mg by mouth daily. 0 02/14/2022 Active clonazePAM (KlonoPIN) 1 MG tablet Take 1 mg by mouth 3 (three) times a day. 0 04/20/2022 Active lisinopril (PRINIVIL,ZESTRIL) tablet 10 mg Take 10 mg by mouth daily. 0 02/17/2022 Active oxyCODONE HCl (ROXICODONE) 10 MG TABS Take 10 mg by mouth every 6 (six) hours as needed. for pain 0 04/04/2022 Active OxyCONTIN 10 MG T12A controlled release tablet TAKE 1 TABLET BY MOUTH EVERY 12 HOURS FOR 28 DAYS 0 04/04/2022 Active Family History Medical History Relation Name Comments Diabetes Mother Relation Name Status Comments Mother Social History Tobacco Use Types Packs/Day Years Used Date Smoking Tobacco: Never Assessed Sex and Gender Information Value Date Recorded Sex Assigned at Not on file Gender Identity Not on file Sexual Orientation Not on file Job Start Date Occupation Industry Not on file Not on file Not on file Last Filed Vital Signs Vital Sign Reading Time Taken Comments Blood Pressure - - Pulse - - Temperature - - Respiratory Rate - - Oxygen Saturation - - Inhaled Oxygen Concentration - - Weight 57.6 kg (127 lb) 04/29/2022 12:36 PM EDT Height 170.2 cm (5' 7 ) 04/29/2022 12:36 PM EDT Body Mass Index 19.89 04/29/2022 12:36 PM EDT Plan of Treatment Health Maintenance Due Date Last Done Comments Hepatitis C Screening 1955 Depression Screening 1969 Preventative Health Evaluation 1975 DTap / Tdap / Td (1 - Tdap) 01/20/1976 Colon Cancer Screening (Colonoscopy) 2002 Shingrix-Zoster Vaccine (1 of 2) 2007 Fall Risk Assessment 2022 COVID-19 Vaccine (2 - season) 2024 10/21/2020 Influenza Vaccine (#1) 2024 2, 03/03/2021, 02/18/2020, Additional history exists Pneumococcal Vaccine (3 of 3 - PPSV23 or PCV20) 05/03/2024 05/03/2019, 08/14/2009 RSV Adult > 60+ Yrs or (1 - 1-dose 75+ series) 01/20/2032 Hepatitis B Vaccines Aged Out No long er eligible based on patient's age to complete this topic RSV Ped < 20 months Aged Out No longe r eligible based on patient's age to complete this topic Care Teams Transport Analyst Relationship Specialty Start Date End Date Rhonda Escobedo NP [address] [place] [address] PCP - General Gerontology 04/29/22
== END 2024-11-24 09:42 | disposition home or self-care (01) ==
LOC: HO.HOS 09:30
PROVIDERS: PCP Nurse Practitioner Family; Visit Provider Orthopaedic Surgery
DX: M48.02 Spinal stenosis, cervical region (principal)
CPT/HCPCS: 99213; G2211

== ENCOUNTER → 2024-11-24 09:30 | Outpatient (BNVA) | payer OTHER, SELFPAY | PROVIDERS: PCP Nurse Practitioner Family; Visit Provider Orthopaedic Surgery ==

== ENCOUNTER 2024-12-02 08:40 | Outpatient (REF) | payer OTHER, SELFPAY ==
--- NOTE | ~2024-12-02 | XR_ITS ---
CLINICAL HISTORY: M48.02 - Spinal stenosis, cervical region --- Additional Notes or Special Instructi ons: a p, lateral with flex ext views 4 views cervical spine Comparison: None Findings: Status post anterior cervical discectomy and fusion from C5-C7. No alignment change on flexion-extension. Vertebral bodies are osteopenic but there is no vertebral body height loss. Disc height loss with osteophyte formation from C2 to C4. Bilateral carotid calcification. No prevertebral soft tissue swelling. IMPRESSION: Postoperative changes. No findings of instability on flexion-extension. Osteopenia This document has been electronically signed by: Deb Metzger MD on 12/03/2024 07:54:37
--- OUTSIDE RECORDS SUMMARY | 2024-12-02 09:45 | XMS_ITS | Clinical Summary ---
Author Organization [facility] Address [address] [place] [address] Care Team Providers Care Internet Marketing Specialist Name Role Phone Rhonda Escobedo NP Primary Care Provider [phone] Allergies Active Allergy Reactions Criticality Noted Date [...] age to complete this topic Care Teams Internet Marketing Specialist Relationship Specialty Start Date End Date Rhonda Escobedo NP [address] [place] [address] PCP - General Gerontology 04/29/22
== END 2024-12-02 08:41 | disposition home or self-care (01) ==
LOC: HO.HOSX 08:40
PROVIDERS: PCP Nurse Practitioner Family; Referring Provider Orthopaedic Surgery; Visit Provider Physician Assistant
DX: M48.02 Spinal stenosis, cervical region (principal); Z98.1 Arthrodesis status
CPT/HCPCS: 72050; 99202

== ENCOUNTER 2024-12-02 08:40 | Outpatient (AMB) | payer OTHER, SELFPAY ==
--- NOTE | 2024-12-02 08:41 | A.SPINEOV_ITS ---
Vital Signs 12/02/24 09:00 Height 5 ft 7 in Weight 127 lb BMI 19.9 Intake Visit Reasons: spinal stenosis, cervical region Intake Note: Mr. Franco is here today c/o progressively worsening neck pain which radiates down his right arm to his right hand. 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 At that time he fell and fractured his spine in multiple locations in ultimately needed 10 spinal surgeries to correct the issues. It sounds like at the time of the fall he not only had issues with the lumbar with fractures but also in his neck necessitating a series of neck surgeries including what sounds like posterior cervical laminectomy as well as anterior fusion and plating. He reports that often what would happen after 1 surgery is he would break the hardware resulting in the need for a revision surgery. The reason he comes in today is because of neck pain and pain in his right arm. He reports that he has had chronic neck pain for many many years dating back to his surgeries. He has noticed though in the last for 5 years that there has been an increase in the amount of pain when he turns his head side to side or back and forth up and down he will have crunching sounds and feelings of dizziness and headaches that radiate up to the back of his head. Also reports a pain that radiates down his arm into his hand as well. He takes oxycodone in the morning to help with the pain. He used to take things like Motrin and Tylenol but because of issues with his having bleeding from a gastric ulcer related to taking these, he discontinued out of fear. He has been through pain centers in the past including [facility] with multiple attempts at injection but was told that because of his previous instrumentation in his neck in his back, that they could not help him because every time they tried to put a needle in it would not allow access. He underwent physical therapy at some point as well. Subsequent imaging done at your office with cervical MRI shows postsurgical changes as well as stenosis at C3-4 in the foramen. There are other degenerative changes superimposed as well. He came in today for an evaluation. PMH: He has been a lifelong smoker until a few months ago, history of lung cancer with removal of a mass sounds like robotic surgery last year, he has been told by his thoracic surgeon and his oncology team that he has been stable with no signs of recurrent tumors. He had some kind of surgery on his throat with a remove part of his esophagus because he had some kind of webbing or obstruction. History of hypertension, high cholesterol, anxiety, chronic pain syndrome, knee surgery, shoulder surgery last year as well as numerous lumbar and cervical spine surgeries as outlined above. Social hx: Quit smoking a few months ago, quit drinking about 30 years ago and occasionally has some marijuana but not regular Medications: Atorvastatin, lisinopril, amlodipine, Lyrica, duloxetine, Klonopin, oxycodone Allergies: Morphine Physical exam: Awake alert oriented no acute distress, slow to stand up, limited range of motion of his neck not only with lateral rotation but flexion and extension, he is an anterior neck incision on the right side as well as posterior cervical incision which are both well healed. He has numerous scars on his low back too numerous to count. They are all well healed. He has a flexed posture with standing. He has weakness of his hands bilaterally with some atrophy which I would describe as 4/5. Rest of his motor examination of the upper and lower extremities is normal, he has diffuse hyperreflexia. Imaging review: There is a cervical MRI done at [facility] showing postsurgical changes with what looks like anterior cervical fusion C5-7 as well as posterior cervical laminectomy. He has advanced degeneration of the disc at C4-5, question of auto fusion here. He has degeneration at C3-4 as well with bilateral neuroforaminal stenosis. There is no significant central canal stenos is seen. Impression: 69-year-old male with a longstanding history of spinal issues as outlined above related to a fall that he took 50 ft out of a tree for about 40 years ago necessitating a total of 10 spinal surgeries throughout the years, the last being 2015 when he had something done on his neck but he can not remember exactly what. It sounds like at the time he had a spinal cord injury amongst other traumatic fractures of his lumbar spine that necessitated surgeries. His main issue now is chronic pain in his neck and limited range of motion as well as feelings of cracking and pain that radiates up to his head. He takes oxycodone in the morning as the main way he deals with this. His neurological exam shows some signs of myelopathy but his imaging does not show any evidence of spinal cord compression so I suspect this is related to his old spinal cord injury after the fall. Right now it is very hard for me to determine what is causing his neck pain because there are so many diffuse issues going on here. The report suggests at C3-4 severe with a foraminal stenosis but I do not think this alone could explain all of his pain. I suspect all the other degenerative and postsurgical changes combined in addition to this are what is giving him the issues. That makes it a little harder to treat surgically. I would like to get a set of x-rays with flexion-extension views as well as a CT scan noncontrast of the cervical spine to better evaluate the bony anatomy and assess the degree of auto fusion around his previous anterior fusion. Once these things are completed I will see him back in the office and we can re-evaluate to see if there is anything we can do to help him. Thank you for allowing us to care for your patient. The total time spent with this visit with this patient was 45 minutes reviewing history, physical exam, cervical imaging review, and implementation of treatment plan or further diagnostic testing Douglas Rosales MD,PhD [facility] Orders: Orders XR cervical spine 4V Today M48.02 - Spinal stenosis, cervical region CT cervical spine wo IV con Today M48.02 - Spinal stenosis, cervical region Coding Level of Care Code New Pt Level 4 (34864) Diagnoses Cervical stenosis of spinal canal M48.02
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
--- OUTSIDE RECORDS SUMMARY | 2024-12-02 08:51 | XMS_ITS | Clinical Summary ---
Author Organization [facility] Address [address] [place] [address] Care Team Providers Care Pci Security Consultant Name Role Phone Rhonda Escobedo NP Primary Care Provider [phone] Allergies Active Allergy Reactions Criticality Noted Date [...] age to complete this topic Care Teams Pci Security Consultant Relationship Specialty Start Date End Date Rhonda Escobedo NP [address] [place] [address] PCP - General Gerontology 04/29/22
[2024-12-02 09:00] VITALS: BMI 19.9
== END 2024-12-02 09:46 | disposition home or self-care (01) ==
PROVIDERS: PCP Nurse Practitioner Family; Referring Provider Orthopaedic Surgery; Visit Provider Physician Assistant
DX: M48.02 Spinal stenosis, cervical region (principal)
CPT/HCPCS: 99204

== ENCOUNTER → 2024-12-02 09:43 | Outpatient (BNV) | payer OTHER, SELFPAY | PROVIDERS: PCP Nurse Practitioner Family; Referring Provider Orthopaedic Surgery; Visit Provider Radiology Diagnostic Radiology | DX: M85.88 Other specified disorders of bone density and structure, other site (principal) | CPT/HCPCS: 72050 ==

== ENCOUNTER 2025-01-02 09:13 | Outpatient (REF) | payer OTHER, SELFPAY ==
--- NOTE | ~2025-01-02 | CT_ITS ---
CLINICAL HISTORY: M48.02 - Spinal stenosis, cervical region CT cervical spine without intravenous contrast Comparison: DX - XR CERVICAL SPINE 4V - 12/02/24 09:43 EDT Findings: The bones are without evidence of lytic or blastic lesion. There is normal vertebral body height with no evidence of compression fracture. Post ACDF C5 through C7 hardware intact. Nonunion of the spur along the anterior aspect C4-5 intervertebral disc level. Lordotic curvature is preserved. Segmental analysis as below (MR is more accurate in the evaluation of disc herniation and central canal pathology): C2-C3: Uncovertebral body spurs and degenerative facet hypertrophy more so on the left. Mild foraminal and central spinal canal stenosis. C3-C4: Uncovertebral body spurs and degenerative facet hypertrophy more so on the left. Mild foraminal and central spinal canal stenosis. C4-C5: Small uncovertebral body spurs mild central spinal canal stenosis C5-C6: Small uncovertebral body spurs C6-C7: Small uncovertebral body spurs C7-T1: No herniation or stenosis. Paravertebral soft tissues unremarkable. Biapical blebs. 5 mm pulmonary nodule right apex consider Fleischner criteria Bilateral ethmoid maxillary sinusitis more so on the left. Impression: 1. Post ACDF C5 through C7 hardware intact. Normal alignment. 2. Multilevel degenerative spondylosis causing mild foraminal and mild central spinal canal stenosis. Fleischner Society 2017 Guidelines for incidentally detected indeterminate nodules in persons 35 years of age or older. Single Solid Nodules: 5 mm or smaller nodules need no follow-up in low risk, and [address] follow-up is optional in high risk patients. This document has been electronically signed by: Lanre Hanson MD on 01/02/2025 11:30:17
== END 2025-01-02 09:14 | disposition home or self-care (01) ==
LOC: HO.CT 09:13
PROVIDERS: Visit Provider Physician Assistant
DX: M48.02 Spinal stenosis, cervical region (principal)
CPT/HCPCS: 72125

== ENCOUNTER → 2025-01-02 09:15 | Outpatient (BNV) | payer OTHER, SELFPAY | PROVIDERS: Visit Provider Radiology Diagnostic Radiology | DX: M48.00 Spinal stenosis, site unspecified (principal) | CPT/HCPCS: 72125 ==

== ENCOUNTER 2025-01-09 12:54 | Outpatient (AMB) | payer OTHER, SELFPAY ==
--- NOTE | 2025-01-09 13:25 | HO.SPINEOV ---
Intake Visit Reasons: CT f/u Intake Note: Mr. Franco is here today to discuss the results of his CT scan. Motor Polarizer Required: No Allergies morphine Allergy (Severe, Verified 12/02/24 09:00) Hallucinations Assessment & Plan Assessment & Plan (1) Cervical stenosis of spinal canal: Code(s): M48.02 - Spinal stenosis, cervical region Category: Medical Plan Mr Franco is back today in follow-up. As per my previous note this is a gentleman with multiple cervical spine surgeries after a fall, who has had progressively worsening posterior neck pain in what seems to be the whole posterior cervical spine, that did not respond to conservative management in the form of pain medications, and attempts at injection were met with difficulty with accessing the anatomy because of his previous surgeries. They tried facet blocks but were unable to get the needle in. This was done at [facility]. His cervical spine CT that I ordered shows that he has significant anterior osteophytes at C4-5, as well as facet arthropathy C4-5 posteriorly. There maybe some degree of auto fusion on the left. I would like to review this with Dr. Rosales and see if he thinks the patient would be a good candidate for surgery. I will get back to him once I have a chance to review everything. Total amount of time spent in this visit was 20 minutes in discussion of symptoms, cervical CT imaging results and subsequent plan of care Douglas Rosales MD,PhD [facility] Coding Level of Care Code Est Pt Level 3 (87868) Diagnoses Cervical stenosis of spinal canal M48.02
== END 2025-01-09 13:58 | disposition home or self-care (01) ==
LOC: HO.HNS 12:54
PROVIDERS: PCP Nurse Practitioner Family; Visit Provider Physician Assistant
DX: M48.02 Spinal stenosis, cervical region (principal)
CPT/HCPCS: 99213

== ENCOUNTER → 2025-01-09 12:54 | Outpatient (BNVA) | payer OTHER, SELFPAY | PROVIDERS: Visit Provider Physician Assistant | DX: M48.02 Spinal stenosis, cervical region (principal) | CPT/HCPCS: 99212 ==

== ENCOUNTER 2025-01-27 11:18 | Outpatient (AMB) | payer OTHER, SELFPAY ==
--- NOTE | 2025-01-27 11:32 | A.OFFVIS_ITS ---
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 Over the last five years, the intensity of his neck pain has increased significantly. The pain is constant and exacerbated by weather changes and movement. It radiates towards the shoulders and hands, with an intensity of 10 out of 10, affecting his ability to sleep and perform standing activities. He has received multiple injections at [facility], but previous instrumentation in his back has made access to the spinal space challenging. The patient has tried various pain management strategies, including oxycodone and topical medications, which provide some relief. However, he has discontinued some oral medications due to his 's history of gastric ulcers. The patient previously attempted a spinal cord stimulator trial, which was unsuccessful, and he is not interested in pursuing this option again due to past negative experiences and his 's complications with a similar device. Pain Description - Onset: Pain has been present for many years, with increased intensity over the last five years. - Quality: Constant pain, exacerbated by weather changes and movement. - Location: Neck, radiating towards shoulders and hands. - Intensity: 10 out of 10. - Interference: Affects sleep and standing activities. - Relief: Some relief with oxycodone and topical medications. Physical Exam - Appears afebrile. - Alert and oriented. - Mood and affect appropriate. - Follows and participates in conversation appropriately. - Respiratory effort is unlabored. - Able to transition from sit to stand unassisted. - Ambulates with bilaterally normal heel strike and toe off. - Able to stand and walk on toes and heels. Results Pain Management - Affect: Pain significantly impacts the patient's mood and psychological wellbeing, causing distress and frustration. - Analgesia: Currently using oxycodone and topical medications, with pain intensity reported as 10 out of 10. - Adverse Effects: No specific adverse effects from current medications reported, but oral medications were stopped due to 's gastric ulcer history. - Activities of Daily Living: Pain interferes with sleep and ability to perform standing activities. - Aberrant Drug Related Behaviors: No signs of medication abuse or misuse reported. [facility] Medical History (Updated 11/24/24 @ 09:41 by Corby Barros MD) Degenerative arthritis Hx of cancer of lung Hx: bad fall (~1984) COPD (chronic obstructive pulmonary disease) Chronic, continuous use of opioids Lung mass Knee pain Hand pain Esophageal candidiasis Fatigue Effusion, left knee Dysphagia Bone pain Polyarthritis Tobacco use disorder Opioid use disorder, severe, in sustained remission Multiple lung nodules Lumbar disc herniation with radiculopathy Low serum cortisol level Hypertension Hemorrhoid Chronic neck pain Chronic back pain Anxiety Achalasia Surgical History History of lung surgery (06/03/23) Hx of knee surgery History of back surgery H/O esophagogastroduodenoscopy H/O neck surgery Social History 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 at 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: Yes ( in wheel 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-daily 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) Do you presently have visiting nurse or other home services: Yes (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 2 hours daily) Alcohol intake: former Year quit: 2014 Patient Tobacco Use Status: Current everyday Tobacco user Tobacco use type: Cigarette Cigarettes Per Day: 2 Current occupational status: disabled Physical Exam Vital Signs: Last Vital Signs Pulse 51 01/27/25 11:34 Resp 16 01/27/25 11:34 BP 136/65 01/27/25 11:34 Pulse Ox 97 01/27/25 11:34 Oxygen Delivery Method Room Air 01/27/25 11:34 BMI result Body Mass Index 19.4 Assessment & Plan Assessment & Plan (1) Failed back syndrome: Code(s): M96.1 - Postlaminectomy syndrome, not elsewhere classified Category: Medical Plan Plan - Discussed the limited role of repeat injections due to previous access challenges. - Offered temporary and permanent spinal cord stimulation options, which the patient declined. - Provided a brochure with information on alternative pain management options for future consideration. Patient was informed and verbally consented to the use of an ambient scribe for clinic note documentation during this visit. Discussion Notes I discussed with the patient the limited role of repeat surgery due to the challenges posed by previous instrumentation. We explored the option of spinal cord stimulation, both temporary and permanent, but the patient declined due to past negative experiences. I provided a brochure with information on alternative pain management options for future consideration. Patient Instructions - Review the brochure provided for alternative pain management options. - Consider contacting the clinic if interested in exploring new pain management strategies. Coding Level of Care Code New Pt Level 4 (54084) Diagnoses Failed back syndrome M96.1
[2025-01-27 11:34] VITALS: BP 136/65; PULSE 51; RESP 16; O2SAT 97; BMI 19.4
--- OUTSIDE RECORDS SUMMARY | 2025-01-27 11:51 | XMS_ITS | Clinical Summary ---
Author Organization [facility] Address [address] [place] [id number] Care Team Providers Care Carton Machine Operator Name Role Phone Rhonda Escobedo NP Primary Care Provider [phone] Allergies Active Allergy Reactions Criticality Noted Date [...] COVID-19 Vaccine (2 - season) 2024 10/21/2020 Pneumococcal Vaccine (3 of 3 - PPSV23 or PCV20) 05/03/2024 05/03/2019, 08/14/2009 Influenza Vaccine (#1) 2025 2, 03/03/2021, 02/18/2020, Additional history exists RSV Adult > 60+ Yrs or (1 - 1-dose 75+ series) 01/20/2032 Hepatitis B Vaccines Aged Out No long er eligible based on patient's age to complete this topic RSV Ped < 20 months Aged Out No longe r eligible based on patient's age to complete this topic Care Teams Carton Machine Operator Relationship Specialty Start Date End Date Rhonda Escobedo NP [address] [place] [address] PCP - General Gerontology 04/29/22
--- OUTSIDE RECORDS SUMMARY | 2025-01-27 11:51 | XMS_ITS | Data Portability ---
Author Organization [facility] Address [address] [place] [address] Care Team Providers Care Lead Qa Analyst Name Role Phone DELORES HEBERT NP Primary Care Provider Assessment Encounter [...] findings at length with the patient today. We discussed the nature and etiology of this problem along with current treatment options. We discussed the expected course and outcomes and what to expect. We also discussed risks and benefits. All of their questions were answered today, and there was exhibited understanding and comprehension of all that was discussed. 10 minutes were spent reviewing previous imaging and charting. 10 minutes were spent obtaining patient history. 5 minutes were spent on physical exam. 5minutes were spent explaining diagnosis and assessment. Today's [...] interested in this time he can employ tubm-vxt-vvuvkij pain medication and topical treatments for symptomatic [...] findings at length with the patient today. We discussed the nature and etiology of this problem along with current treatment options. We discussed the expected course and outcomes and what to expect. We also discussed risks and benefits. All of their questions were answered today, and there was exhibited understanding and comprehension of all that was discussed. Time Spent: 10 minutes were spent reviewing previous imaging and charting. 10 minutes were spent obtaining patient history. 5 minutes were spent on physical exam. 5minutes were spent explaining diagnosis and assessment. Today's [...] insurance for [employer] on, insurance preferred med. Knee Laterality: LEFT knee 2022 023 [email or web address] Not available 09:10:31 Surgeries None recorded. Imaging XR, knee, 4 or more view 2022 023 [email or web address] [facility], [address], [address], [place], [address], 3 15:29:50 MRI, knee, w/o contrast - L knee MRI 2022 023 CUBA Not available 3 09:00:12 Medication Orders Kenalog 40 mg/mL suspension for injection 2022 023 [email or web address] [id number], [address], [place], [address], 3 09:26:33 lidocaine (PF) 10 mg/mL (1 %) injection solution 2022 023 [email or web address] Not available 14:16:40 Patient TargetsNo targets recorded. Patient Instructions Encounter Date Encounter Id Patient Instructions Last Modified By Organization Details Last Modified Time 11/03/2022 [id number] You have been provided with a cortisone [...] following the injection. This is called a flare . To help minimize the chances of this, please see the post-injection instructions above. There is a less than 1% chance of an infection. If you notice any signs of infection (redness, warmth, drainage, fever greater than 100 degrees) please call our office or contact us through the portal [facility]. Not available 11/03/2022 09:26:18 01/02/2023 [id number] AP, lateral, Tenorio, patellar views of the [...] Details Recorded Time Arthritis of left knee [id number] 104 Active 2022 KAREN ZARAGOZA PA-C [address], [place], [address], [place] [facility], P 3 10:59:41 Osteoarthri tis of left knee joint 3924779416617 09 Active 2022 KAREN ZARAGOZA PA-C [address], [place], [address], [place] [facility], [facility] 3 09:23:19 Problem Notes None recorded. Procedures Surgical History Date Name Laterality Status Provider Name and Address Organization Details Recorded Time 3 Knee Joint/Bursa Asp & Inj completed KAREN ZARAGOZA PA-C [address] [place] [address],[facility] [address], [place], [address], [place] [facility], [facility] 11/03/2022 09:19:32 procedure on back completed Vincent Connor [facility] 11/03/2022 08:44:21 Imaging Results None recorded. Procedure Notes None recorded. Medical Equipment None Reported. Allergies Allergen ID Allergen Name Allergen Category Reaction Reaction Severity Criticality Documentation Date Start Date Code Code System Note Provider Name and Address Organization Details Recorded Time 240 morphine medicatio n Not available Not available Not available 11/03/2022 7052 RxNorm Vincent Connor [facility], [place] - [facility], P 3 08:42:52 Medications Name Sig Start [...] Not Available No t Available amoxicillin 875 mg-aleksandriu m clavulanate 125 mg tablet TAKE 1 [...] Updated DateTime 11/03/2022 170.18 cm 19.9 kg/m2 90526.23 g Vincent Connor [facility] 11/03/2022 08:43:04 Date Recorded Body height Body mass index (BMI) Body weight Provider Name and Address Organization Details Last Updated DateTime 01/02/2023 170.18 cm 18.6 kg/m2 22536.49 g Deb Tawnya [facility] 01/02/2023 14:28:11 Date Recorded Body height Provider Name an d Address Organization Details Last Updated DateTime 02/11/2023 170.18 cm Yuliya Moore [facility] 02/11/2023 10:55:33 Social History Question Answer Notes LastModified by Organizat ion Details LastModified Time Tobacco Smoking Status Current Every Day Smoker Vincent kumar, [facility] 11/03/2022 08:43:19 How Much Tobacco Do You Smoke? 0.5 PPD [email or web address] Information not available 11/03/2022 Sex: Unknown Functional Status Question Answer Note LastModified by Organizat ion Details LastModified Time Do you use any illicit or recreational drugs? No [email or web address] Information not available 11/03/2022 Do you or have you ever used any other forms of tobacco or nicotine? No [email or web address] Information not available 11/03/2022 What is your level of alcohol consumption? None [email or web address] Information not available 11/03/2022 Mental Status None recorded. Family History Relationship Description Onset Age of this Age Resolved Age Notes LastModified by Organization Details LastModified Time Father Heart disease [email or web address] Not available 08:43:49 Father Hyperlipidem ia [email or web address] Not available 08:44:11 Medical History Condition Response Hypertension Y COPD Y Past Encounters Encounter ID Performer Location Encounter Start Date Encounter Closed Date Diagnosis/Indication Diagnosis SNOMED-CT Code Diagnosis ICD10 Code Diagnosis Note [id number] MARITA RIVERA [employer] [address] [facility] [address] [employer] [facility] [address] 11/03/2022 08:27:26 11/03/2022 09:00:17 Osteoarthritis of left knee joint [id number] 73769 M17.12 [id number] MD HENNY Aleman [employer] [address] [address] [place] [address] 01/02/2023 13:57:57 01/02/2023 14:41:40 Pain of left knee joint 3868915955 28519 M25.562 [id number] MARITA RIVERA [employer] [address] [facility] [address] [employer] [facility] [place] [address] 02/11/2023 10:31:39 02/11/2023 11:02:45 Osteoarthritis of left knee joint 2294413333 27738 M17.12 Arthritis of left knee 0700315205 911851 M13.862 Health Concerns Section Related Observation LastModified by Organization Detai ls LastModified Time None Recorded Concern Status LastModified by Organization Details LastModified Time None Recorded Advance Directives Directive None Recorded Payers Insurance Date Sequence Insurance Name Policy Number Policy Malone Covered Member ID Malone Member ID Guarantor Name 02/11/[address] [facility] - DOS ON OR AFTER 2022 - MEDICARE [place]ANTAGE [place]MED[place]ACEMENT/AD VANTAGE - PPO) Mireya Anderson [id number] Mireya Quezadarollychrista Notes Date Note Type Note Provider Name [...] pain is medial in nature. He takes momy-uec-gqpufoh pain medication for some relief. He is requesting for possible cortisone injection. He denies any fevers or chills or interval change in history. He states he is on chronic oxycodone 10 mg every 4-6 hours for chronic back pain KAREN ZARAGOZA PA-C [address] [place] [address], [phone], [place] [facility], [facility] 11/03/2022 09:27:21 3 text/html HPI:Patient is here today with complaints of left knee pain. The patient is experiencing left knee pain, which [...] or persistent local or systemic infection. Physical Exam: Patient is well nourished, well-developed, in no acute distress, with appropriate mood and affect. The patient is oriented to time, place, and person. Examination of the contralateral knee shows normal range of motion, strength, no tenderness, and intact skin. The affected limb is well-perfused, without skin lesions, shows a grossly normal motor and sensory examination. Left knee motion is reduced and does cause significant pain. The left knee moves from 5 -135 degrees. The knees are stable within those aexffj-ht-uaoico. The alignment of the left knee is neutral . Muscle strength is normal. Pedal pulses are palpable. Hip examination, including flexion and internal rotation, was negative in that groin pain was not produced. Assessment/Plan: Patient has significant left knee pain. I [...] needs any surgical intervention Debbie Dumont MD [address] [place] [address], [phone], [place] [facility], [facility] 01/02/2023 14:45:00 3 text/html Assessment/Plan :MJG note from 3Patient has significant left knee [...] his visit on 01/02/[address] Dumont. [facility] [address] [place] [address] ___Patient: MIREYA ANDERSON [address]./Age/Sex: 1955 68 - MUnit#: [id number] Location/Status: SPDIMRI/REG CLIAccount#: [id number] Mnemonic/Ordering Site: [facility]/SPMAINOrdering Physician: DEBBIE DUMONT MD [...] UNIQUE HALL MDElectronically Signed by: UNIQUE HALL MDDic Date/Time: 01/21/23 1037Sign date/Time: 01/21/23 [id number] KAREN ZARAGOZA PA-C [address] [place] [address],[facility] [address], [place], [address], [place] [facility] 02/11/2023 11:03:44
--- OUTSIDE RECORDS SUMMARY | 2025-01-27 11:52 | XMS_ITS ---
Author Name [facility] Organization Unknown History of Medication Use Medication Directions Dispensed Refills Start Date End Date Stat us lidocaine (PF) 10 mg/mL (1 %) injection solution Take 1 mL by injection route. 11/03/2022 active amoxicillin 875 mg-potassium clavulanate 125 mg tablet TAKE 1 TABLET BY MOUTH EVERY 12 HOURS FOR 10 DAYS 02/11/2023 active atorvastatin 20 mg tablet TAKE 1 TABLET BY MOUTH EVERY DAY active cholecalciferol (vitamin D3) 1,250 mcg (50,000 unit) capsule TAKE 1 CAPSULE BY MOUTH ONCE EVERY 7 DAYS FOR 90 DAYS active gabapentin 600 mg tablet TAKE 1 TABLET BY MOUTH TWICE A DAY active hydrocortisone 2.5 % topical cream APPLY TO AFFECTED AREA 3 TIMES A DAY active oxycodone 5 mg tablet TAKE 2 TABLET BY MOUTH EVERY 6 HOURS,X28 DAYS NEEDED FOR PAIN active Allergies Allergen Reaction Severity Comment Documented Date Source Statu s MORPHINE [facility] Problems Problem Status Onset Date Problem Type Date of Resoluti on Source Arthritis of left knee active 2023-02-11 ProblemAct [facility] Osteoarthritis of left knee joint active 2022-11-03 ProblemAct [facility] Encounters Encounter Type Encounter Reason Primary Diagnosis Location Date Ambulatory [facility] 02/20/2023 Ambulatory [facility] 02/20/2023 [facility]ulatory [facility] 02/20/2023 Ambulatory [facility] 02/20/2023 Ambulatory [facility] 02/19/2023 Ambulatory [facility] 02/19/2023 Amb[facility] 02/09/2023 Ambulatory [facility] 01/29/2023 Ambulatory [facility] 11/07/2022 Care Team Organization Name Specialty Phone Email Start Date End Da te [facility] DELORES HEBERT Primary Care 06/19/2022 03/07/2024
== END 2025-01-27 12:04 | disposition home or self-care (01) ==
LOC: HO.PMC 11:19
PROVIDERS: PCP Nurse Practitioner Family; Referring Provider Physician Assistant; Visit Provider Internal Medicine
DX: M96.1 Postlaminectomy syndrome, not elsewhere classified (principal)
CPT/HCPCS: 99204

== ENCOUNTER → 2025-01-27 11:18 | Outpatient (BNVA) | payer OTHER, SELFPAY | PROVIDERS: PCP Nurse Practitioner Family; Referring Provider Physician Assistant; Visit Provider Internal Medicine | DX: M96.1 Postlaminectomy syndrome, not elsewhere classified (principal) | CPT/HCPCS: 99202 ==